=== PATIENT | female | born 1940 | race Caucasian/White ===

== ENCOUNTER 2017-07-25 09:34 | Outpatient (RCR) | payer OTHER, SELFPAY ==
--- NOTE | 2017-07-25 09:57 | RAD_ITS ---
STUDY: X-RAY - RIGHT KNEE REASON FOR EXAM: Female, 77 years old. Right knee pain. TECHNIQUE: 4 view(s) of the knee. COMPARISON: None. FINDINGS: Normal visualized distal femur. Normal visualized proximal tibia and fibula. Normal proximal tibiofibular articulation. There is mild degenerative arthrosis of the medial femorotibial compartment. There is mild degenerative arthrosis of the lateral femorotibial compartment. Normal patellofemoral articulation. Chondrocalcinosis of the medial and lateral menisci. The soft tissue structures are unremarkable. RAD/Knee 4 or More Views IMPRESSION: Degenerative arthrosis. Chondrocalcinosis. Electronically Signed: Elmer Sexton MD at 13:40 EST Tel [phone], Service support ,
[2017-07-25 10:01] LABS: Prothrombin Time Fingerstick 27.2 SEC (11.9-14.4)
== END 2017-07-25 10:00 | disposition home or self-care (01) ==
LOC: MTLAB 09:34
PROVIDERS: Family Provider Internal Medicine; PCP Internal Medicine; Visit Provider Internal Medicine Cardiovascular Disease
DX: I48.0 Paroxysmal atrial fibrillation (principal); M25.561 Pain in right knee
CPT/HCPCS: 36415; 36416; 73564; 85610

== ENCOUNTER 2017-09-30 13:44 | Outpatient (RCR) | payer OTHER, SELFPAY ==
[2017-09-16 12:16] LABS: Prothrombin Time Fingerstick 37.3 SEC (11.9-14.4)
[2017-09-30 14:49] LABS: International Normalized Ratio 2.2; Prothrombin Time (Protime)PT. 24.8 SECONDS (11.7-14.9)
== END 2017-09-30 14:00 | disposition home or self-care (01) ==
LOC: MTLAB 13:44
PROVIDERS: Family Provider Internal Medicine; PCP Internal Medicine; Visit Provider Internal Medicine Cardiovascular Disease
DX: I48.0 Paroxysmal atrial fibrillation (principal)
CPT/HCPCS: 36415; 36416; 85610

== ENCOUNTER → 2017-10-05 11:42 | Outpatient (CLI) | payer OTHER, SELFPAY | PROVIDERS: Family Provider Internal Medicine; PCP Internal Medicine; Visit Provider Internal Medicine | DX: Z12.31 Encounter for screening mammogram for malignant neoplasm of breast (principal) ==

== ENCOUNTER → 2017-10-05 11:55 | Outpatient (CLI) | payer OTHER, SELFPAY ==
--- NOTE | 2017-10-05 11:59 | BI_ITS ---
MAMMOGRAPHY - BILATERAL SCREENING REASON FOR EXAM: Female, 77 years old. Routine annual screening examination. PERTINENT HISTORY: Non-contributory. TECHNIQUE: Digital bilateral breast jerome (3D mammographic acquisition) in the CC and MLO projections. 2-D mediolateral oblique (MLO) and craniocaudad (CC) views of both breasts were obtained. CAD: Full Field Digital Mammography with Computer Added Detection was performed. COMPARISON: Comparison is made with prior study dated September 29, 2016 and September 29, 2015. FINDINGS: Breast Composition: The breasts are heterogeneously dense, which may obscure small masses. There are no dominant masses or suspicious calcifications. Stable bilateral secretory calcifications. Stable bilateral benign-appearing axillary lymph nodes. No other significant abnormalities are identified. There has been no significant change since the prior study. BI/SCREENING MAMM (CAD), BILAT IMPRESSION: Stable bilateral screening mammogram. Yearly follow-up mammogram recommended. (A) ASSESSMENT CATEGORY: BIRADS Category 2: Benign. A letter regarding these results will be sent to the patient by the facility within 30 days. Approximately 10% of breast cancers are not detected by mammography. A normal mammogram should not delay biopsy of a clinically suspicious abnormality. [id number] Electronically Signed: Elmer Sexton MD at 13:49 EDT Tel [phone], Service support ,
== END ==
PROVIDERS: Family Provider Internal Medicine; PCP Internal Medicine; Visit Provider Internal Medicine
DX: Z12.31 Encounter for screening mammogram for malignant neoplasm of breast (principal)
CPT/HCPCS: 77063; 77067

== ENCOUNTER 2017-11-02 11:06 | Outpatient (RCR) | payer OTHER, SELFPAY ==
[2017-11-02 11:25] LABS: Prothrombin Time Fingerstick 32.8 SEC (11.9-14.4)
== END 2017-11-02 12:00 | disposition home or self-care (01) ==
LOC: MTLAB 11:06
PROVIDERS: Family Provider Internal Medicine; PCP Internal Medicine; Visit Provider Internal Medicine Cardiovascular Disease
DX: I48.0 Paroxysmal atrial fibrillation (principal)
CPT/HCPCS: 36416; 85610

== ENCOUNTER 2018-01-16 11:40 | Outpatient (RCR) | payer OTHER, SELFPAY ==
[2018-01-16 11:51] LABS: Prothrombin Time Fingerstick 29.1 SEC (11.9-14.4)
== END 2018-01-16 13:00 ==
LOC: MTLAB 11:40
PROVIDERS: Family Provider Internal Medicine; PCP Internal Medicine; Visit Provider Internal Medicine Cardiovascular Disease
DX: I48.0 Paroxysmal atrial fibrillation (principal); Z79.01 Long term (current) use of anticoagulants
CPT/HCPCS: 36416; 85610

== ENCOUNTER → 2018-02-06 09:52 | Outpatient (CLI) | payer OTHER, SELFPAY ==
--- NOTE | 2018-02-06 09:55 | CDU_ITS ---
Reason For Study: Carotid Stenosis Rt. Velocities/BP Lt. Velocities/BP Prox CCA 82/18 cm/sec. Prox CCA 79/15 cm/sec. Mid CCA 66/11 cm/sec. Mid CCA 72/13 cm/sec. Dist CCA 67/15 cm/sec. Dist CCA 57/14 cm/sec. Prox ICA 66/17 cm/sec. Prox ICA 67/21 cm/sec. Mid ICA 80/20 cm/sec. Mid ICA 160/39 cm/sec. Dist ICA 121/32 cm/sec. Dist ICA 129/29 cm/sec. Rt. ICA/CCA = 1.83. Lt. ICA/CCA = 2.22. Prox ECA 70/8 cm/sec. Prox ECA 63/8 cm/sec. Rt. Vert. 66/10 cm/sec. Lt. Vert. 75/15 cm/sec. Right Extracranial There is intimal thickening but no significant atherosclerotic plaque noted in the right common carotid artery. There is heterogeneous, irregular atherosclerotic plaque noted in the right internal carotid artery. There is heterogeneous, irregular atherosclerotic plaque noted in the right external carotid artery. Antegrade flow is noted in the right vertebral artery. Left Extracranial There is intimal thickening but no significant atherosclerotic plaque noted in the left common carotid artery. There is intimal thickening but no significant atherosclerotic plaque noted in the left internal carotid artery. The left internal carotid artery is very tortuous. The tortuous nature of the left internal carotid artery may result in flow velocities overestimating the degree of stenosis. There is no significant atherosclerotic plaque noted in the left external carotid artery. Antegrade flow is noted in the left vertebral artery. Procedure Carotid Duplex [id number]. Exam performed in department. Interpretation Summary Mild (<50%) stenosis right extracranial internal carotid. Moderate (50-69%) stenosis left extracranial internal carotid. Flow within the vertebral arteries is antegrade bilaterally. Ordering Physician: Fast, Hailey Referring Physician: Hailey Baires Performed By: Alyssa Rodrigues, BEVERLY, RVT
== END ==
PROVIDERS: Family Provider Internal Medicine; PCP Internal Medicine; Visit Provider Internal Medicine
DX: I65.23 Occlusion and stenosis of bilateral carotid arteries (principal)
CPT/HCPCS: 93880

== ENCOUNTER 2018-02-10 12:48 | Outpatient (RCR) | payer OTHER, SELFPAY ==
[2018-02-10 13:11] LABS: Prothrombin Time Fingerstick 31.1 SEC (11.9-14.4)
== END 2018-02-10 14:00 | disposition home or self-care (01) ==
LOC: MTLAB 12:48
PROVIDERS: Family Provider Internal Medicine; PCP Internal Medicine; Visit Provider Internal Medicine Cardiovascular Disease
DX: I48.0 Paroxysmal atrial fibrillation (principal); Z79.01 Long term (current) use of anticoagulants
CPT/HCPCS: 36416; 85610

== ENCOUNTER → 2018-04-11 10:40 | Outpatient (CLI) | payer OTHER, SELFPAY ==
--- NOTE | 2018-04-11 10:41 | ECHOD_ITS ---
Reason For Study: MURMUR Procedure This was a 2D Doppler, Color Flow transthoracic echocardiogram. Exam performed in department. Left Ventricle Normal LV size. Left ventricular systolic function is normal. The estimated ejection fraction is 60 %. Transmitral and pulmonary venous doppler flow suggestive of impaired relaxation of left ventricle. Transmitral diastolic flow velocities suggest mild (stage 1) diastolic dysfunction (reversed pattern). No regional wall motion abnormalities noted. Right Ventricle Normal RV size. Normal systolic function. Atria Normal left atrium. Normal right atrium. Mitral Valve Normal mitral valve. Mild (1+) eccentric mitral valve insufficiency. Tricuspid Valve Normal tricuspid valve. Mild tricuspid valve insufficiency. Aortic Valve Trisinus/trileaflet aortic valve. Mild focal aortic valve calcification. Pulmonic Valve Normal pulmonic valve. Great Vessels Normal aortic root. The pulmonary artery is normal size. Normal inferior vena cava. Pericardium/Pleural No pericardial effusion. MMode/2D Measurements & Calculations LVIDd: 5.1 cm IVSd: 0.88 cm Ao root diam: 3.1 cm LVIDs: 3.4 cm LVPWd: 0.89 cm LA dimension: 3.9 cm RVDd: 3.5 cm FS: 33.2 % LAV(MOD-bp): 65.0 ml EDV(MOD-sp4): 98.5 ml EDV(MOD-sp2): 97.2 ml LAV(MOD-bp) Indexed: 36.6 ml/m2 ESV(MOD-sp4): 34.6 ml EF(MOD-sp2): 65.3 % LAV(MOD-sp2): 61.8 ml EF(MOD-sp4): 64.8 % LAV(MOD-sp4): 64.1 ml SV(MOD-sp4): 63.8 ml SV(MOD-sp2): 63.4 ml LA A4 area: 22.4 cm2 RA A4 area: 14.7 cm2 Time Measurements MV dec time: 0.21 sec Doppler Measurements & Calculations MV E max ethan: 95.4 cm/sec Lat Peak E' Ethan: 6.3 cm/sec Med Peak E' Ethan: 5.5 cm/sec MV A max ethan: 108.4 cm/sec E/E' lat: 15.2 E/E' med: 17.4 MV E/A: 0.88 Ao V2 max: 207.1 cm/sec LV V1 max: 81.4 cm/sec TR max ethan: 202.0 cm/sec Ao max P.2 mmHg LV V1 max P.7 mmHg TR max P.4 mmHg Ao V2 mean: 154.5 cm/sec LV V1 mean P.6 mmHg Ao mean P.4 mmHg LV V1 mean: 60.2 cm/sec Ao V2 VTI: 55.9 cm LV V1 VTI: 22.2 cm Interpretation Summary Normal LV size. Left ventricular systolic function is normal. The estimated ejection fraction is 60 %. Transmitral and pulmonary venous doppler flow suggestive of impaired relaxation of left ventricle Transmitral diastolic flow velocities suggest mild (stage 1) diastolic dysfunction (reversed pattern). Ordering Physician: Cyril Robles Referring Physician: ETTA LOPEZ Performed By: Jessica Nicholas, BEVERLY, RVT
== END ==
PROVIDERS: Family Provider Internal Medicine; PCP Internal Medicine; Referring Provider Internal Medicine Cardiovascular Disease; Visit Provider Internal Medicine Cardiovascular Disease
DX: R01.1 Cardiac murmur, unspecified (principal)
CPT/HCPCS: 93306

== ENCOUNTER 2018-04-12 10:41 | Outpatient (RCR) | payer OTHER, SELFPAY ==
[2018-04-12 14:14] LABS: Hemoglobin 12.3 g/dl (12.0-15.0); Mean Corp Hgb Conc 32.4 g/gl (32-36); Mean Corpuscular Hgb 30.6 pg (27.0-32.0); Mean Corpuscular Volume 94.5 fL (81-99); Mean Platelet Vol. 10.1 fl (6.2-12.0); Platelet Count 251 K/mm3 (150-450); RBC Distribution Width CV 14.1 % (11.6-14.6); RBC Distribution Width SD 48.4 fl (35.1-43.9); Red Blood Count 4.02 M/mm3 (4.2-5.4); Scan Indicated on CBC? Y/N NO; White Blood Count 8.7 K/mm3 (4.4-11.0)
[2018-04-12 14:18] LABS: Prothrombin Time (Protime)PT. 13.3 SECONDS (11.7-14.9)
[2018-04-12 14:21] LABS: Anion Gap 8 (5-15); BUN 17 mg/dL (7-18); BUN/Creat Ratio 22.9 RATIO (10-20); Chloride 106 mmol/L (98-107); Creatinine, Serum 0.74 mg/dL (0.55-1.02); EST Glomerular Filtration Rate 80 mL/min (>60); Est Glom Filt Rate - Afr Amer 97 mL/min (>60); Glucose 125 mg/dL (74-106); Potassium 4.1 mmol/L (3.5-5.1); Sodium Level 143 mmol/L (136-145)
== END 2018-04-12 12:00 | disposition home or self-care (01) ==
LOC: MTLAB 10:41
PROVIDERS: Family Provider Internal Medicine; PCP Internal Medicine; Referring Provider Internal Medicine Cardiovascular Disease; Visit Provider Internal Medicine Cardiovascular Disease
DX: Z01.818 Encounter for other preprocedural examination (principal); I48.0 Paroxysmal atrial fibrillation; Z79.01 Long term (current) use of anticoagulants
CPT/HCPCS: 36415; 80048; 85027; 85610

== ENCOUNTER 2018-05-15 10:56 | Outpatient (RCR) | payer OTHER, SELFPAY ==
[2018-05-15 11:11] LABS: Prothrombin Time Fingerstick 38.3 SEC (11.9-14.4)
== END 2018-05-15 11:00 | disposition home or self-care (01) ==
LOC: MTLAB 10:56
PROVIDERS: Family Provider Internal Medicine; PCP Internal Medicine; Referring Provider Internal Medicine Cardiovascular Disease; Visit Provider Internal Medicine Cardiovascular Disease
DX: Z01.818 Encounter for other preprocedural examination (principal); I48.0 Paroxysmal atrial fibrillation; Z79.01 Long term (current) use of anticoagulants
CPT/HCPCS: 36416; 85610

== ENCOUNTER 2018-06-14 11:43 | Outpatient (RCR) | payer OTHER, SELFPAY ==
[2018-03-28 14:59] VITALS: BMI 37.5
[2018-06-14 12:05] LABS: Prothrombin Time Fingerstick 21.7 SEC (11.9-14.4)
--- OUTSIDE RECORDS SUMMARY | 2018-07-31 15:15 | XMS RPT_ITS ---
:1940 Author Organization [place] Support Name Relationship Address Phone [employer] Unknown [address] + [place] [address] CURTIS SCOTT [address] + [place] [address] PRITT, ESTHELA NaturalDaughter [address] + [place] [address] [employer] Unknown [address] + [place] [address] SONIACURTIS [address] + [place] [address] PRITT, ESTHELA NaturalDaughter [address] + [place] [address] [employer] Unknown [address] + [place] [address] SON[address]UR[address]IS [address] + [place] [address] PRITT, ESTHELA NaturalDaughter [address] + [place] [address] [employer] Unknown [address] + [place] [address] SON[address]UR[address]IS [address] + [place] [address] PRITT, ESTHELA NaturalDaughter [address] + [place] [address] [employer] Unknown [address] + [place] [address] SON[address]URTIS [address] + [place] [address] PRITT, ESTHELA NaturalDaughter [address] + [place] [address] [employer] Unknown [address] + [place] [address] CURTIS SCOTT [address] + [place] [address] PRITT, ESTHELA NaturalDaughter [address] + [place] [address] [employer] Unknown [address] + [place] [address] CURTIS SCOTT [address] + [place] [address] PRITT, ESTHELA NaturalDaughter [address] + [place] [address] [employer] Unknown [address] + [place] [address] CURTIS SCOTT [address] + [place] [address] PRITT, ESTHELA NaturalDaughter [address] + [place] [address] [employer] Unknown [address] + [place] [address] CURTIS SCOTT [address] + [place] [address] PRITT, ESTHELA NaturalDaughter [address] + [place] [address] [employer] Unknown [address] + [place] [address] CURTIS SCOTT [address] + [place] [address] PRITT, ESTHELA NaturalDaughter [address] + [place] [address] [employer] Unknown [address] + [place] [address] CURTIS SCOTT [address] + [place] [address] PRITT, ESTHELA NaturalDaughter [address] + [place] [address] [employer] Unknown [address] + [place] [address] CURTIS SCOTT [address] + [place] [address] PRITT, ESTHELA NaturalDaughter [address] + [place] [address] [employer] Unknown [address] + [place] [address] CURTIS SCOTT [address] + [place] [address] PRITT, ESTHELA NaturalDaughter [address] + [place] [address] [employer] Unknown [address] + [place] [address] CURTIS SCOTT [address] + [place] [address] PRITT, ESTHELA NaturalDaughter [address] + [place] [address] [employer] Unknown [address] + [place] [address] CURTIS SCOTT [address] + [place] [address] PRITT, ESTHELA NaturalDaughter [address] + [place] [address] [employer] Unknown [address] + [place] [address] CURTIS SCOTT [address] + [place] [address] PRITT, ESTHELA NaturalDaughter [address] + [place] [address] [employer] Unknown [address] + [place] [address] CURTIS SCOTT [address] + [place] [address] PRITT, ESTHELA NaturalDaughter [address] + [place] [address] Care Team Providers Name Role Phone Fast DO, Hailey A Attending Unavailable Fast DO, Hailey A Referring Unavailable Fast DO, Hailey A Consulting Unavailable Margaret, Rockwood Attending Unavailable Margaret, Rockwood Referring Unavailable Fast, Hailey Primary Care Unavailable Dewey Ponce Consulting Unavailable Margaret, Attending Unavailable Margaret, [place] Referring Unavailable Fast, Hailey Primary Care Unavailable Roof, Bismark Beverly Attending Unavailable Fast, Hailey Referring Unavailable Fast, Hailey Primary Care Unavailable Margaret, Attending Unavailable Fast, Hailey Referring Unavailable Fast, Hailey Attending Unavailable Fast, Hailey Primary Care Unavailable Margaret, Attending Unavailable Margaret, Referring Unavailable Fast, Hailey Primary Care Unavailable Fast, Hailey Attending Unavailable Fast, Hailey Primary Care Unavailable Margaret, [place] Attending Unavailable Margaret, [place] Referring Unavailable Fast, Hailey Primary Care Unavailable Fast, Hailey Attending Unavailable Fast, Hailey Referring Unavailable Fast, Hailey Primary Care Unavailable Margaret, Attending Unavailable Margaret, [place] Referring Unavailable Fast, Hailey Primary Care Unavailable Fast, Hailey Primary Care Unavailable Margaret, [place] Attending Unavailable Margaret, [place] Referring Unavailable Margaret, [place] Attending Unavailable Margaret, Referring Unavailable Fast, Hailey Primary Care Unavailable Dewey Ponce Consulting Unavailable Margaret, [place] Attending Unavailable Margaret, [place] Referring Unavailable Fast, Hailey Primary Care Unavailable Dewey Ponce Attending Unavailable Fast, Hailey Primary Care Unavailable Margaret, Attending Unavailable Margaret, Referring Unavailable Fast, Hailey Primary Care Unavailable Margaret, [place] Consulting Unavailable Margaret, Attending Unavailable Margaret, Referring Unavailable Fast, Hailey Primary Care Unavailable Dewey Ponce Consulting Unavailable Margaret, Attending Unavailable Margaret, [place]wood Referring Unavailable Fast, Hailey Primary Care Unavailable Dewey Ponce Consulting Unavailable Purpose Purpose PROBLEMS PROBLEMS DATE TYPE CONDITION / CODE ATTENDING STATUS SOURCE 07/03/2018 Unknown I48.0 - Paroxysmal Margaret, Rockwood Active [facility] atrial fibrillation Community / I48.0(ICD-10) Hospital Repository 06/06/2018 Unknown Z01.818 - Encounter Margaret, Active [facility] for other Community preprocedural Hospital examination / Repository Z01.818(ICD-10) 04/11/2018 Unknown R01.1 - Cardiac Margaret, Active [facility] murmur, unspecified Community / R01.1(ICD-10) Hospital Repository 03/28/2018 Unknown I10 - Essential Margaret, Rockwood Active [facility] (primary) Community hypertension / Hospital I10(ICD-10) Repository 03/28/2018 Unknown E78.5 - Margaret, Active [facility] Hyperlipidemia, Community unspecified / Hospital E78.5(ICD-10) Repository 02/06/2018 Unknown 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, Hailey Active [place] and stenosis of Community bilateral carotid Hospital arteries / Repository I65.23(ICD-10) 10/05/2017 Unknown Z12.31 - Encounter Fast, Hailey Active [facility] for screening [facility] mammogram for Hospital malignant neoplasm Repository of breast / Z12.31(ICD-10) PROCEDURES PROCEDURES No Procedure Records FoundVITAL SIGNS VITAL SIGNS No Vital Signs Records FoundRESULTS RESULTS PROTIME W/INR Collected: 06/14/2018 Status: F Source: [place] 12:01 PM [facility] REPOSITORY TYPE CODE TESTS RESULT OUT OF REFERENCE UNITS RANGE LAB L9200.1001 11.9-14.4 SEC High PROTIME ISTAT 21.7 Result Comment: Reference Range 11.9 - 14.4 LAB L9200.2000 Normal INR ISTAT 1.90 Result Comment: Critical Value > 3.5 Performed By: #### L9200.0000 #### [facility] Laboratory Point of Care [address] [place] [address] PROTIME W/INR Collected: 05/15/2018 Status: F Source: [place] 11:03 AM [facility] REPOSITORY TYPE CODE TESTS RESULT OUT OF REFERENCE UNITS RANGE LAB L9200.1001 11.9-14.4 SEC High PROTIME ISTAT 38.3 Result Comment: Reference Range 11.9 - 14.4 LAB L9200.2000 Normal INR ISTAT 3.40 Result Comment: Critical Value > 3.5 Performed By: #### L9200.0000 #### [facility] Point of Care [address] [place] [address] CBC-COMPLETE BLOOD CNT Collected: 04/12/2018 Status: F Source: [place] NO DIFF 12:55 PM [facility] REPOSITORY Order Comment: DR IYER ORDERED PT DEWEY PONCE ORDERED CBC/BMP TYPE CODE TESTS RESULT OUT OF RANGE REFERENCE UNITS LAB L100.1000 4.4-11.0 K/mm3 Normal WBC 8.7 LAB L100.1200 4.2-5.4 M/mm3 Low RBC 4.02 LAB L100.1300 12.0-15.0 g/dl Normal HGB 12.3 LAB L100.1400 37-47 % Normal HCT 38.0 LAB L100.1500 81-99 fL Normal MCV 94.5 LAB L100.1600 27.0-32.0 pg Normal MCH 30.6 LAB L100.1700 32-36 g/gl Normal MCHC 32.4 LAB L100.1810 11.6-14.6 % Normal RDW CV 14.1 LAB L100.1820 35.1-43.9 fl High RDW SD 48.4 LAB L100.1900 150-450 K/mm3 Normal PLT 251 LAB L100.2000 6.2-12.0 fl Normal MPV 10.1 Performed By: #### L100.0500 #### [facility] [address] [place], [place], [address] PROTHROMBIN TIME W/INR Collected: 04/12/2018 Status: F Source: [place] 12:55 PM [facility] REPOSITORY Order Comment: DR IYER ORDERED PT DEWEY PONCE ORDERED CBC/BMP TYPE CODE TESTS RESULT OUT OF RANGE REFERENCE UNITS LAB L300.4150 11.7-14.9 SECONDS Normal PROTIME 13.3 LAB L300.4200 Normal INR 1.0 Performed By: #### L300.3900 #### [facility] [address] [place], [place], [address] BASIC METABOLIC Collected: 04/12/2018 Status: F Source: [place] PROFILE (BMP) 12:55 PM [facility] REPOSITORY Order Comment: DR IYER ORDERED PT DEWEY PONCE ORDERED CBC/BMP TYPE CODE TESTS RESULT OUT OF RANGE REFERENCE UNITS LAB L501.0100 74-106 mg/dL High GLU 125 Result Comment: Fasting Glucose result from 100 to 125 mg/dL suggests IMPAIRED HOMEOSTASIS per A.D.A. criteria. Please note revised GLUCOSE reference range effective 2017. LAB L501.1000 7-18 mg/dL Normal BUN 17 LAB L501.1100 0.55-1.02 mg/dL Normal CREAT,SERUM 0.74 Result Comment: The validity of the calculated GFR AND GFRAA in patients over 70 years has not been determined. Clinical correlation is essential. LAB L501.1110 >60 mL/min Normal EST GFR 80 Result Comment: Non- GFR Calc LAB L501.1115 >60 mL/min Normal EST GFR - AA 97 Result Comment: GFR Calc LAB L501.1300 10-20 RATIO High BUN/CRE 22.9 LAB L501.2200 8.5-10.1 mg/dL CA Normal 9.0 LAB L501.5300 136-145 mmol/L NA Normal 143 LAB L501.5600 3.5-5.1 mmol/L K Normal 4.1 LAB L501.5900 98-107 mmol/L CL Normal 106 LAB L501.6100 21.0-32.0 mmol/L Normal CO2 29.0 LAB L501.6200 5-15 Normal GAP 8 Performed By: #### L500.2500 #### [facility] [address] [place], [address] ECHOCARDIOGRAM COMPLETE Observed: 04/11/2018 Status: F Source: [place] 5:13 PM [facility] REPOSITORY [facility] Cardiovascular Services [address] [place] [address] Echo Complete 04/11/18 1052 MR#: [id number] Acct: [id number] Name: YOEL SCOTT Rep #: [id number] : 1940 77 From: Cyril Iyer MD Attending Dr: Cyril Iyer MD Status: REG CLI Ordering Dr: Cyril Iyer MD Date: 04/11/18 Location: [facility] Sex: F C Admitted: Reason For Study: MURMUR Procedure This was a 2D Doppler, Color Flow transthoracic echocardiogram. Exam performed in department. Left Ventricle Normal LV size. Left ventricular systolic function is normal. The estimated ejection fraction is 60 %. Transmitral and pulmonary venous doppler flow suggestive of impaired relaxation of left ventricle. Transmitral diastolic flow velocities suggest mild (stage 1) diastolic dysfunction (reversed pattern). No regional wall motion abnormalities noted. Right Ventricle Normal RV size. Normal systolic function. Atria Normal left atrium. Normal right atrium. Mitral Valve Normal mitral valve. Mild (1+) eccentric mitral valve insufficiency. Tricuspid Valve Normal tricuspid valve. Mild tricuspid valve insufficiency. Aortic Valve Trisinus/trileaflet aortic valve. Mild focal aortic valve calcification. Pulmonic Valve Normal pulmonic valve. Great Vessels Normal aortic root. The pulmonary artery is normal size. Normal inferior vena cava. Pericardium/Pleural No pericardial effusion. MMode/2D Measurements AND Calculations LVIDd: 5.1 cm IVSd: 0.88 cm Ao root diam: 3.1 cm LVIDs: 3.4 cm LVPWd: 0.89 cm LA dimension: 3.9 cm RVDd: 3.5 cm FS: 33.2 % LAV(MOD-bp): 65.0 ml EDV(MOD-sp4): 98.5 ml EDV(MOD-sp2): 97.2 ml LAV(MOD-bp) Indexed: 36.6 ml/m2 ESV(MOD-sp4): 34.6 ml EF(MOD-sp2): 65.3 % LAV(MOD-sp2): 61.8 ml EF(MOD-sp4): 64.8 % LAV(MOD-sp4): 64.1 ml SV(MOD-sp4): 63.8 ml SV(MOD-sp2): 63.4 ml LA A4 area: 22.4 cm2 RA A4 area: 14.7 cm2 Time Measurements MV dec time: 0.21 sec Doppler Measurements AND Calculations MV E max ethan: 95.4 cm/sec Lat Peak E' Ethan: 6.3 cm/sec Med Peak E' Ethan: 5.5 cm/sec MV A max ethan: 108.4 cm/sec E/E' lat: 15.2 E/E' med: 17.4 MV E/A: 0.88 Ao V2 max: 207.1 cm/sec LV V1 max: 81.4 cm/sec TR max ethan: 202.0 cm/sec Ao max P.2 mmHg LV V1 max P.7 mmHg TR max P.4 mmHg Ao V2 mean: 154.5 cm/sec LV V1 mean P.6 mmHg Ao mean P.4 mmHg LV V1 mean: 60.2 cm/sec Ao V2 VTI: 55.9 cm LV V1 VTI: 22.2 cm Interpretation Summary Normal LV size. Left ventricular systolic function is normal. The estimated ejection fraction is 60 %. Transmitral and pulmonary venous doppler flow suggestive of impaired relaxation of left ventricle Transmitral diastolic flow velocities suggest mild (stage 1) diastolic dysfunction (reversed pattern). Ordering Physician: Cyril Iyer Referring Physician: HAILEY LOPEZ Performed By: Jessica Nicholas, RDCS, RVT 04/11/18 1712 Date Cyril Iyer MD CC: Cyril Iyer MD; Hailey Lopez DO Date Dictated: 04/11/18 1052 Date Transcribed: 04/11/181711 Principal Associate: Signed CARDIOLOGY VISIT Observed: 03/28/2018 Status: F Source: [place] REPORT 3:37 PM [facility] REPOSITORY [facility] [address] [place] [address] OFFICE VISIT Date of Service: 03/28/18 MR#: [id number] Acct: [id number] Name: YOEL SCOTT Rep #: [id number] : 1940 Provider: Cyril Iyer MD Age/Sex: 77/F Location: [facility] Status: Signed HPI HPI Chief Complaint: Follow-up visit. Details: YOEL SCOTT, is a 77 F who presents to the office today for a follow-up visit. She is a lady with a history of hypertension hyperlipidemia paroxysmal atrial fibrillation who returns for routine follow-up visit. She denies any chest pain or shortness breath or paroxysmal nocturnal dyspnea or pedal edema she has had no neck arm or jaw discomfort suggest angina and no recent palpitations. Her physical exam today demonstrates clear lung duenas regular rate and rhythm is soft 2/6 systolic murmur noted left sternal border and no pedal edema. You do remember that her last echocardiogram demonstrated an ejection fraction of 60%. 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 Accompanied by: none Is patient in pain?: No Allergies Penicillins Allergy (Verified 03/28/18 15:00) Other tetanus toxoid, adsorbed Allergy (Verified 03/28/18 15:00) Swelling Medications Aspirin [Aspirin, Baby] 81 mg PO DAILY@0800 08/28/16 [History Confirmed 03/28/18] Calcium Carbonate [Calcium] 600 mg PO BID 08/28/16 [History Confirmed 03/28/18] Cetirizine HCl [Zyrtec] 10 mg PO DAILY 08/28/16 [History Confirmed 03/28/18] Co Q10 200 [Co Q-10] 200 mg PO DAILY 08/28/16 [History Confirmed 03/28/18] Fish Oil/Dha/Epa [Fish Oil 1,200 mg Fish Oil] 1 ea PO DAILY 08/28/16 [History Confirmed 03/28/18] Gluc Abad/Chondro Abad A/Vit C/Mn [Glucosamine 1,500 Complex Cp] 1 ea PO BID 08/28/16 [History Confirmed 03/28/18] Levothyroxine [Synthroid] 75 mcg PO MOTUWETHFR 08/28/16 [History Confirmed 03/28/18] Levothyroxine [Synthroid] 150 mcg PO SUSA 08/28/16 [History Confirmed 03/28/18] Metformin HCl [Glucophage] 2,000 mg PO DINNER 08/28/16 [History Confirmed 03/28/18] Metoprolol Succinate [Toprol Xl] 25 mg PO DAILY 08/28/16 [History Confirmed 03/28/18] Multivitamin [Multiple Vitamins] 1 ea PO DAILY 08/28/16 [History Confirmed 03/28/18] Rosuvastatin Calcium [Crestor] 10 mg PO QHS 08/28/16 [History Confirmed 03/28/18] Valsartan/Hydrochlorothiazide [Diovan Hct 160-25 mg Tablet] 1 ea PO DAILY 08/28/16 [History Confirmed 03/28/18] warfarin 1 mg tablet 1 mg PO .COMPLEX 09/16/17 [History Confirmed 03/28/18] warfarin 4 mg tablet 4 mg PO .COMPLEX 09/16/17 [History Confirmed 03/28/18] flecainide 100 mg tablet 100 mg PO BID #180 tab 11/02/17 [Rx Confirmed 03/28/18] [facility] Medical History [facility] current use of anticoagulant (Chronic) Atrial fibrillation (Chronic) Surgical History History of appendectomy (Chronic) H/O tubal ligation (Resolved) History of cholecystectomy (Resolved) History of hysterectomy (Resolved) History of tonsillectomy (Resolved) Family History Father Hypertension Myocardial infarction CAD (coronary artery disease) Mother FH: rheumatic fever FH: CHF (congestive heart failure) Brother FH: atrial fibrillation Sister Breast cancer Social History Smoking Status: Never smoker alcohol intake: current alcohol intake frequency: a few times a month Alcohol type: wine, hard liquor substance use type: does not use caffeine: Yes Type: coffee, carbonated beverages what type of physical activity do you participate in: walking, other details: tredmill frequency: 5-6 times per week duration: 15-30 minutes/day seatbelt use: always do you feel safe at home: Yes ROS Const Const: Negative for fatigue, weakness, night sweats, excessive sweating, frequent falls, headache(s) or daytime sleepiness Eyes Eyes: Negative for loss of peripheral vision, transient loss of vision, blind spots, double vision or blurry vision ENT ENT: Negative for headache(s), dizziness, balance problems, Nosebleed/epistaxis, tongue swelling or lip swelling Cardio Chest Pain: No Palpitations: No Edema: None Muscle aches with walking: None Resp Respiratory: Negative for SOB at rest, SOB orthopnea\SOB lying down, Cough, paroxysmal nocturnal dyspnea or SOB with activity GI GI: Negative nausea, vomiting, heartburn, black,tarry stools or bright, red blood in stools : Negative for hematuria Musc Musc: Negative for balance problems, muscle aches/ myalgia, muscle weakness or joint pain Skin Skin: Negative non-healing lesions, unusual bruising or rash Neuro Neuro: Negative for weakness, frequent falls, headache(s), double vision, dizziness, lightheadedness, orthostatic symptoms, blurry vision or lack of coordination Skyler Hematologic/Lymphatic: Negative for easy bruising or easy bleeding Endo Endo: Negative for fatigue, excessive sweating, cold intolerance, heat intolerance, increased thirst/drinking or hair loss Psych Psych: Negative for anxiety or depression Allergy Allergy/Immunology: Negative for throat swelling, Negative for tongue swelling, Negative for hives, Negative for rash, Negative for lip swelling Cardiology Exam Const Appearance: cooperative, healthy appearing, well developed, well groomed and no acute distress Nutritional Appearance: well nourished and average body habitus Orientation: alert, awake and oriented x3 Head Head: normal to inspection, normocephalic and atraumatic Ears: hearing grossly normal bilaterally and external ears normal Nose: external nose normal, nasal mucous membranes and turbinates normal, nares normal, septum normal, no nasal discharge Face and Sinus: face symmetric Mouth: oral mucosae normal, tongue normal, oropharynx normal and moist mucous membranes Teeth and gingiva: dentition normal Throat: posterior oropharynx normal, tonsils normal and uvula midline Eyes General: appearance normal, both eyes and all related structures Eyelids: eyelids normal Conjunctivae: conjunctivae normal Pupils: PERRL, normal by confrontation and accommodation normal EOM: EOM intact bilaterally Neck Neck: normal visual inspection, trachea midline and no JVD JVD: +5 Carotids: normal carotid upstroke and bounding pulses Chest Chest inspection: normal inspection of the chest, symmetric chest movement and normal respiratory effort Auscultation: Bilateral: Clear to Auscultation Cardio Palpation: normal PMI Rate: regular rate Rhythm: regular rhythm Heart sounds: S1 normal and S2 normal Murmur: Grade 2/6, soft and early systolic GI GI: normal to inspection, soft, no hepatosplenomegaly and bowel sounds present Neuro General: alert, awake, oriented x3, no focal sensory deficit, gait normal and moves all extremities Skin Skin: no rashes or lesions noted Extremities Pulses: Normal: Right Femoral Pulse, Left Femoral Pulse, Right Dorsalis Pedis Pulse, Left Dorsalis Pedis Pulse, Right Posterior Tibial Pulse, Left Posterior Tibial Pulse, Right Radial Pulse, Left Radial Pulse Lower Extremity Edema: None: Bilateral Musculoskel Musculoskeletal: No joint tenderness Psych Psychological: normal affect Assessment AND Plan 1. Hypertension I10 Plan Her blood pressure continues to be under excellent control on the current medical therapy I would not recommend that we make any changes at this time on her regimen. 2. Hyperlipidemia E78.5 Plan She does have a history of hyperlipidemia and has been on medium intensity statin. This will be continued routine lipid profiles will also be obtained. 3. Paroxysmal atrial fibrillation I48.0 Plan She has a history of paroxysmal atrial fibrillation. She has been on anticoagulation as well as antiarrhythmic therapy and beta-josy her electric cardiogram today here today demonstrates sinus rhythm with a rate of 58 bpm and normal intervals. No changes will be made she would maintain an INR of 2-3. Orders Orders: 4. Murmur, cardiac R01.1 Plan She does have a cardiac murmur suggestive of aortic sclerosis and mild stenosis. My recommendation will be to obtain a formal echocardiogram to assess the above. She also did have a carotid ultrasound which demonstrated less than 50% stenosis of the extracranial right internal carotid artery and moderate 50-69% percent stenosis of the left internal carotid vessel. Thank you for allowing me to participate in the care of your patient. 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) Coding Level of Care Code Off vis,est,level 3 Diagnoses Hypertension I10 Hyperlipidemia E78.5 Paroxysmal atrial fibrillation I48.0 Murmur, cardiac R01.1 Coding Level of Care Code Off vis,est,level 3 Diagnoses Hypertension I10 Hyperlipidemia E78.5 Paroxysmal atrial fibrillation I48.0 Murmur, cardiac R01.1 03/28/18 1537 <Electronically signed by Cyril Iyer MD> Date Cyril Iyer MD Cosigner Signature: Date (if applicable) CC: Hailey Lopez DO 12 LEAD EKG PERFORMED Observed: 03/28/2018 Status: F Source: [place] BY [facility] 3:10 PM [facility] REPOSITORY [address] [place] [address] 12 Lead EKG performed by [facility] 03/28/18 1506 MR#: [id number] Acct: [id number] Name: YOEL SCOTT Rep #: [id number] : 1940 77 From: Cyril Iyer MD Attending Dr: Cyril Iyer MD Status: DEP AMB Ordering Dr: Cyril Iyer MD Date: 03/28/18 [place] [facility] Sex: F C Admitted: [facility]/12 Lead EKG performed by [facility] ECG Report Interpretation Sinus Bradycardia Low voltage in precordial leads. - Negative precordial T-waves -Probably normal -consider anteroseptal ischemia. ABNORMAL Electronically signed on 06/07/2018 at 11:38 by Cyril Iyer Software Version [id number] 06/07/18 1146 Date Cyril Iyer MD CC: Hailey Lopez DO Date Dictated: 03/28/18 1506 Date Transcribed: 03/28/181505 Principal Associate: CO Signed PROTIME W/INR Collected: 02/10/2018 Status: F Source: [place] 1:04 PM [facility] REPOSITORY TYPE CODE TESTS RESULT OUT OF REFERENCE UNITS RANGE LAB L9200.1001 11.9-14.4 SEC High PROTIME ISTAT 31.1 Result Comment: Reference Range 11.9 - 14.4 LAB L9200.2000 Normal INR ISTAT 2.70 Result Comment: Critical Value > 3.5 Performed By: #### L9200.0000 #### [facility] Laboratory Point of Care [address] [place] [address] CAROTID DUPLEX Observed: 02/08/2018 Status: F Source: [place] ULTRASOUND 7:51 AM [facility] REPOSITORY [facility] Cardiovascular Services [address] [place] [address] Carotid Duplex Ultrasound 02/06/18 0958 MR#: [id number] Acct: [id number] Name: YOEL SCOTT Rep #: [id number] : 1940 77 From: Hermann Gaspar MD Attending Dr: Hailey Lopez DO Status: REG CLI Ordering Dr: Hailey Lopez DO Date: 02/06/18 Location: [facility] Sex: F C Admitted: Reason For Study: Carotid Stenosis Rt. Velocities/BP Lt. Velocities/BP Prox CCA 82/18 cm/sec. Prox CCA 79/15 cm/sec. Mid CCA 66/11 cm/sec. Mid CCA 72/13 cm/sec. Dist CCA 67/15 cm/sec. Dist CCA 57/14 cm/sec. Prox ICA 66/17 cm/sec. Prox ICA 67/21 cm/sec. Mid ICA 80/20 cm/sec. Mid ICA 160/39 cm/sec. Dist ICA 121/32 cm/sec. Dist ICA 129/29 cm/sec. Rt. ICA/CCA = 1.83. Lt. ICA/CCA = 2.22. Prox ECA 70/8 cm/sec. Prox ECA 63/8 cm/sec. Rt. Vert. 66/10 cm/sec. Lt. Vert. 75/15 cm/sec. Right Extracranial There is intimal thickening but no significant atherosclerotic plaque noted in the right common carotid artery. There is heterogeneous, irregular atherosclerotic plaque noted in the right internal carotid artery. There is heterogeneous, irregular atherosclerotic plaque noted in the right external carotid artery. Antegrade flow is noted in the right vertebral artery. Left Extracranial There is intimal thickening but no significant atherosclerotic plaque noted in the left common carotid artery. There is intimal thickening but no significant atherosclerotic plaque noted in the left internal carotid artery. The left internal carotid artery is very tortuous. The tortuous nature of the left internal carotid artery may result in flow velocities overestimating the degree of stenosis. There is no significant atherosclerotic plaque noted in the left external carotid artery. Antegrade flow is noted in the left vertebral artery. Procedure Carotid Duplex 06753. Exam performed in department. Interpretation Summary Mild (<50%) stenosis right extracranial internal carotid. Moderate (50-69%) stenosis left extracranial internal carotid. Flow within the vertebral arteries is antegrade bilaterally. Ordering Physician: Hailey Lopez Referring Physician: Hailey Lopez Performed By: Alyssa Rodrigues, BEVERLY, RVT 02/08/18 0750 Date Hermann Gaspar MD CC: Hailey Lopez DO Date Dictated: 02/06/1858 Date Transcribed: 02/08/18749 Principal Associate: Signed PROTIME W/INR Collected: 01/16/2018 Status: F Source: [facility] FINGERSTICK 11:47 AM [facility] REPOSITORY TYPE CODE TESTS RESULT OUT OF REFERENCE UNITS RANGE LAB L9200.1001 11.9-14.4 SEC High PROTIME ISTAT 29.1 Result Comment: Reference Range 11.9 - 14.4 LAB L9200.2000 Normal INR ISTAT 2.50 Result Comment: Critical Value > 3.5 Performed By: #### L9200.0000 #### [facility] Laboratory Point of Care [address] [place] [address] PROTIME W/INR Collected: 11/02/2017 Status: F Source: [place] FINGERSTICK 11:22 AM [facility] REPOSITORY TYPE CODE TESTS RESULT OUT OF REFERENCE UNITS RANGE LAB L9200.1001 11.9-14.4 SEC High PROTIME ISTAT 32.8 Result Comment: Reference Range 11.9 - 14.4 LAB L9200.2000 Normal INR ISTAT 2.90 Result Comment: Critical Value > 3.5 Performed By: #### L9200.0000 #### [facility] Laboratory Point of Care [address] [place], [place] [address] SCREENING MAMM (CAD), Observed: 10/05/2017 Status: F Source: MONICA BILAT 11:59 AM [facility] REPOSITORY [facility] Imaging Services [address] [place] [address] SCREENING MAMM (CAD), BILAT MR#: [id number] Acct: [id number] Name: YOEL SCOTT Rep #: [id number] : 1940 F 77 From: Elmer Sexton MD PCP: Hailey Lopez DO Status: REG CLI Study: SCREENING MAMM (CAD), BILAT Date of Exam: 10/05/17 Exam# [id number] Ordering Dr: Hailey Lopez DO MAMMOGRAPHY - BILATERAL SCREENING REASON FOR EXAM: Female, 77 years old. Routine annual screening examination. PERTINENT HISTORY: Non-contributory. TECHNIQUE: Digital bilateral breast jerome (3D mammographic acquisition) in the CC and MLO projections. 2-D mediolateral oblique (MLO) and craniocaudad (CC) views of both breasts were obtained. CAD: Full Field Digital Mammography with Computer Added Detection was performed. COMPARISON: Comparison is made with prior study dated September 29, 2016 and September 29, 2015. FINDINGS: Breast Composition: The breasts are heterogeneously dense, which may obscure small masses. There are no dominant masses or suspicious calcifications. Stable bilateral secretory calcifications. Stable bilateral benign-appearing axillary lymph nodes. No other significant abnormalities are identified. There has been no significant change since the prior study. BI/SCREENING MAMM (CAD), BILAT IMPRESSION: Stable bilateral screening mammogram. Yearly follow-up mammogram recommended. (A) ASSESSMENT CATEGORY: BIRADS Category 2: Benign. A letter regarding these results will be sent to the patient by the facility within 30 days. Approximately 10% of breast cancers are not detected by mammography. A normal mammogram should not delay biopsy of a clinically suspicious abnormality. [id number] Electronically Signed: Elmer Sexton MD at 13:49 EDT Tel [phone], Service support , CC: Hailey Lopez DO Principal Associate: Signed PROTHROMBIN TIME W/INR Collected: 09/30/2017 Status: F Source: MONICA 1:47 PM [facility] REPOSITORY TYPE CODE TESTS RESULT OUT OF RANGE REFERENCE UNITS LAB L300.4150 11.7-14.9 SECONDS High PROTIME 24.8 LAB L300.4200 Normal INR 2.2 Performed By: #### L300.3900 #### [facility] [address] [place], [address] PROTIME W/INR Collected: 09/16/2017 Status: F Source: [place] FINGERSTICK 12:10 PM [facility] REPOSITORY TYPE CODE TESTS RESULT OUT OF REFERENCE UNITS RANGE LAB L9200.1001 11.9-14.4 SEC High PROTIME ISTAT 37.3 Result Comment: Reference Range 11.9 - 14.4 LAB L9200.2000 Normal INR ISTAT 3.30 Result Comment: Critical Value > 3.5 Performed By: #### L9200.0000 #### [facility] Point of Care [address] [place] [address] CARDIOLOGY VISIT Observed: 09/02/2017 Status: F Source: MONICA REPORT 4:30 PM [facility] REPOSITORY [facility] [address] [place] [address] OFFICE VISIT Date of Service: 09/02/17 MR#: [id number] Acct: [id number] Name: YOEL SCOTT Rep #: [id number] : 1940 Provider: KIZZY Rodrigues Age/Sex: 77/F Location[place] [facility] [place] Status: Signed HPI HPI Details: YOEL SCOTT, is a 77 F who presents to the office today for cardiovascular outpatient follow-up. Patient has history of paroxysmal atrial fibrillation, hypertension, and hyperlipidemia. Pt. denies chest, arm, jaw, or neck discomfort. Her exercise tolerance is stable via walking on the treadmill. Pt. denies symptoms of CHF, palpitations, lightheadedness, dizziness, near syncope, or syncopal episodes. Pt. denies edema or claudication issues. Pt. denies orthopnea, PND, fever, chills, blood in urine, blood in stool, myalgia, or unexplainable fatigue. Intake Vital Signs09/02/17 Height 4 ft 11 in 09/02/17 Weight: 184 lb 09/02/17 Body Mass Index (BMI) 37.1 09/02/17 Blood Pressure 132/68 09/02/17 Blood Pressure Location Lt brachial Intake Visit Reasons: 6 M FU Allergies Penicillins Allergy (Verified 08/28/16 14:53) Other tetanus toxoid, adsorbed Allergy (Verified 08/28/16 14:53) Swelling Medications Aspirin [Aspirin, Baby] 81 mg PO DAILY@0800 08/28/16 [History Confirmed 07/27/17] Calcium Carbonate [Calcium] 600 mg PO BID 08/28/16 [History Confirmed 07/27/17] Cetirizine HCl [Zyrtec] 10 mg PO DAILY 08/28/16 [History Confirmed 07/27/17] Co Q10 200 [Co Q-10] 200 mg PO DAILY 08/28/16 [History Confirmed 07/27/17] Fish Oil/Dha/Epa [Fish Oil 1,200 mg Fish Oil] 1 ea PO DAILY 08/28/16 [History Confirmed 07/27/17] Flecainide [Tambocor] 100 mg PO BID 08/28/16 [History Confirmed 07/27/17] Gluc Abad/Chondro Abad A/Vit C/Mn [Glucosamine 1,500 Complex Cp] 1 ea PO BID 08/28/16 [History Confirmed 07/27/17] Hydrocodone Bitart/Apap 5-325 [[place] 5/325] 1 tab PO Q6H PRN PRN #20 tab 08/28/16 [Rx] Levothyroxine [Synthroid] 75 mcg PO MOTUWETHFR 08/28/16 [History Confirmed 08/28/16] Levothyroxine [Synthroid] 150 mcg PO SUSA 08/28/16 [History Confirmed 07/27/17] Metformin HCl [Glucophage] 2,000 mg PO DINNER 08/28/16 [History Confirmed 07/27/17] Metoprolol Succinate [Toprol Xl] 25 mg PO DAILY 08/28/16 [History Confirmed 07/27/17] Multivitamin [Multiple Vitamins] 1 ea PO DAILY 08/28/16 [History Confirmed 07/27/17] Niacin 1,000 mg PO DAILY 08/28/16 [History Confirmed 07/27/17] Rosuvastatin Calcium [Crestor] 10 mg PO QHS 08/28/16 [History Confirmed 07/27/17] Tamsulosin HCl [Flomax] 0.4 mg PO DAILY 7 Days cap 08/28/16 [Rx] Valsartan/Hydrochlorothiazide [Diovan Hct 160-25 mg Tablet] 1 ea PO DAILY 08/28/16 [History Confirmed 07/27/17] Warfarin Sodium [Coumadin] 4 mg PO MOTUWETHFRSA 08/28/16 [History Confirmed 07/25/17] Warfarin [Coumadin (PBKC)] 1 mg PO ABAD 08/28/16 [History Confirmed 07/25/17] Ejection fraction %: 60 to 64 PFSH 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) Atrial fibrillation (Chronic) Surgical History History of appendectomy (Chronic) H/O tubal ligation (Resolved) History of cholecystectomy (Resolved) History of hysterectomy (Resolved) History of tonsillectomy (Resolved) Family History Father Hypertension Myocardial infarction CAD (coronary artery disease) Mother FH: rheumatic fever FH: CHF (congestive heart failure) Brother FH: atrial fibrillation Sister Breast cancer Social History Smoking Status: Never smoker alcohol intake: current alcohol intake frequency: a few times a month Alcohol type: wine, hard liquor substance use type: does not use caffeine: Yes Type: coffee, carbonated beverages what type of physical activity do you participate in: walking, other details: tredmill frequency: 5-6 times per week duration: 15-30 minutes/day seatbelt use: always do you feel safe at home: Yes ROS Const Const: Negative for fatigue, weakness, body ache, fever(s) or chills ENT ENT: Negative for dizziness Cardio Chest Pain: No Palpitations: No Edema: None Muscle aches with walking: None Resp Respiratory: Negative for SOB with activity, SOB at rest, SOB orthopnea\SOB lying down or paroxysmal nocturnal dyspnea GI GI: Negative nausea, black,tarry stools, bright, red blood in stools or vomiting blood/hematemesis : Negative for hematuria or frequent nighttime urination/ nocturia Musc Musc: Negative for muscle aches/ myalgia Neuro Neuro: Negative for weakness, dizziness, lightheadedness, near syncope, syncope or orthostatic symptoms Endo Endo: Negative for fatigue Cardiology Exam Const Appearance: cooperative, healthy appearing, comfortable and no acute distress Orientation: alert, awake and oriented x3 Head Head: normal to inspection Mouth: oral mucosae normal Neck Neck: no JVD and normal visual inspection Carotids: normal carotid upstroke Chest Chest inspection: normal inspection of the chest and normal respiratory effort Auscultation: Bilateral: Clear to Auscultation Cardio Rate: regular rate Rhythm: regular rhythm Heart sounds: S2 normal and murmur (LLSB systolic); negative rub or gallop Murmur: Grade 2/6 GI GI: normal to inspection Neuro General: alert, awake, oriented x3 and CN's II-XI intact bilaterally Skin Skin: no rashes or lesions noted Extremities Pulses: Normal: Right Posterior Tibial Pulse, Left Posterior Tibial Pulse, Right Radial Pulse, Left Radial Pulse Lower Extremity Edema: None: Bilateral Psych Psychological: normal affect Supplemental Info Echocardiogram from August 2016 showed an ejection fraction of 60% and structurally normal valves. Cardiovascular stress test from August 2015 was negative for ischemia by EKG criteria at a moderate workload. No arrhythmias were noted. No angina was noted. No atrial fibrillation was noted. Assessment AND Plan 1. Paroxysmal atrial fibrillation I48.0 Plan Patient appears to be maintaining regular rhythm. We will continue to monitor this. She will continue current medications which include antiarrhythmic, beta-josy, and Coumadin therapy. 2. Essential hypertension I10 Plan Patient's blood pressure is well-controlled today in the office. We will continue to monitor this. We will not make any medication regimen changes. 3. Mixed hyperlipidemia E78.2 Plan Patient states this is being monitored by primary care physician. She will continue with current cholesterol-lowering medications. Plan Detail Additional Comments Thank you for allowing us to participate in the patients plan of care, if you have any questions please do not hesitate to call. This note was generated using a voice recognition system and there may be incorrect words, spelling or punctuation that were not noted when reviewing the office note prior to saving. 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) Coding Level of Care Code Off vis,est,level 3 Diagnoses Paroxysmal atrial fibrillation I48.0 Essential hypertension I10 Hypertension type: essential hypertension Mixed hyperlipidemia E78.2 Hyperlipidemia type: mixed hyperlipidemia Coding Level of Care Code Off vis,est,level 3 Diagnoses Paroxysmal atrial fibrillation I48.0 Essential hypertension I10 Hypertension type: essential hypertension Mixed hyperlipidemia E78.2 Hyperlipidemia type: mixed hyperlipidemia 09/02/17 1630 <Electronically signed by Bismark CALLES> Date Bismark H Roof SUPERVISOR CARDING-C Cosigner Signature: Date (if applicable) CC: Hailey Fast DO ALLERGIES ALLERGIES DATE TYPE / CODE NAME / CODE REACTION SEVERITY SOURCE 03/28/2018 Drug Penicillins/F0 Other Unknown [facility] 20013084([facility] 14147(SNOMED M) Repository CT) 03/28/2018 Drug tetanus Swelling Unknown [facility] Allergy/4160 toxoid, Hospital 61916(SNOMED adsorbed/F0060 Repository CT) 92342(RXNORM) ENCOUNTERS ENCOUNTERS ADMIT/DISCHARGE ACCOUNT ADMITTING ENCOUNTER LOCATION SOURCE NUMBER CLASS 07/19/2018 [id number] Ambulatory Building:[facility] Repository 07/04/2018 [id number] Ambulatory Monica [place] 1 [facility] ing:MTLAB Repository 06/14/2018/ [id number] Ambulatory [place] 8 1 [facility] ing:MTLAB Repository 05/15/2018/ [id number] Ambulatory Monica [place] 8 5 [facility] ing:MTLAB Repository 04/12/2018/ [id number] Ambulatory [place] 8 2 [facility] ing:MTLAB Repository 04/11/2018 [id number] Ambulatory BMSBuilding:B [place] 5 [facility] Repository 04/11/2018 [id number] Ambulatory [place] 5 [facility] ing[facility] Repository 04/11/2018 [id number] Ambulatory [place] 5 [facility] ing:LAB.[facility]UR Repository E 03/28/2018/ [id number] Ambulatory BMSBuilding:B [place] 8 4 [facility] Repository 02/11/2018 [id number] Ambulatory [place] 9 [facility] ing:MTLAB Repository 02/10/2018/ [id number] Ambulatory [place] 8 1 [facility] ing:MTLAB Repository 02/06/2018 [id number] Ambulatory [place] 1 [facility] ing:[facility] Repository 01/16/2018/ [id number] Ambulatory Monica [place] 8 0 [facility] ing:MTLAB Repository 11/02/2017/ [id number] Ambulatory [place] 8 9 [facility] ing:MTLAB Repository 10/05/2017 [id number] Ambulatory [place] 8 [facility] ing:BI Repository 10/05/2017 [id number] Ambulatory [place] 9 [facility] ing:OPBI Repository 09/30/2017/ [id number] Ambulatory Monica [place] 8 7 [facility] ing:MTLAB Repository 09/02/2017/ [id number] [facility] [place] [facility] FUNCTIONAL STATUS FUNCTIONAL STATUS No Functional Status Records FoundEQUIPMENT EQUIPMENT No Equipment Records FoundPAYERS PAYERS ENCOUNTER GUARANTOR PAYER SUBSCRIBER SOURCE 07/19/2018 YOEL J Primary YOEL J OHIP Practices ELIOTDOB: Insurance:Medical ELIOTDOB: Repository [facility] [id number] Number: [address] [place] [address] [id number] [place] [address] [phone]: 330) Date:2971-22-37Kktc 41858Uhw: () Name:[facility] Box [facility]141 () [address]x, [place] [address]OE: 07/19/2018 Secondary YOEL J OHIP Practices Insurance:Professiona ELIOTDOB: Repository l Benefits [id number] AdminPolicy Number: [address] [id number] [address] [place] [address] Date:2001-11-01 73880Tvk: [phone] [id number] [phone] () Name:[id number] [place], [place] [address]SK: 07/19/2018 Tertiary YOEL J [place] Practices Insurance:First ELIOTDOB: Repository Federal [employer] [id number] [employer]Policy [address] Number: Effective [address] [place] [address] Date: - [address]Nmg: [phone] [id number] [phone] (HP) Name:[id number] [address] [address]OF: 07/19/2018 Tertiary YOEL J [place] Practices Insurance:[facility] ELIOTDOB: Repository ChoicePolicy Number: [id number] [address] Date:2011-03-04 - [address] [place] [address] [id number] [id number]: ([phone]) Name:[facility] [phone] () [place], [place] [address]EQ: [phone] 07/04/2018 YOEL J Primary Insurance:MED YOEL J [place] [id number] TR MUTUAL TPAPolicy ELIOTDOB: [address] Number: [id number] Hospital [address]Yix: [phone]) [id number] Repository 49 () Date:3974-83-88PS [facility] [address], [place] [address]VL: CHECK WEBSITE 07/04/2018 Secondary NOT GIVENUNK [place] Insurance:SELF PAY [facility] Number: Effective Repository Date:2018-07-03 06/14/2018 YOEL J Primary Insurance:MED YOEL J [place] [id number] TR MUTUAL TPAPolicy ELIOTDOB: [address] Number: [id number] Hospital [address]Ibq: [phone] [id number] Repository 496 () Date:9382-49-90SD [address] [address]K[place], [place] [address]XZ: CHECK WEBSITE 06/14/2018 Secondary NOT GIVENUNK [place] Insurance:SELF PAY [facility] Number: Effective Repository Date:2018-06-06 05/15/2018 YOEL J Primary Insurance:MED YOEL J [place] [id number] TR MUTUAL TPAPolicy ELIOTDOB: [address] Number: [id number] Hospital [address]Xgk: 330 [id number] Repository [phone] () Date:0116-42-45MD [address] [address]QUV[place]WG, [place] [address]ZW: CHECK WEBSITE 05/15/2018 Secondary NOT GIVENUNK [place] Insurance:SELF PAY [facility] Number: Effective Repository Date:2018-05-04 04/12/2018 YOEL J Primary Insurance:MED YOEL J [place] [id number] TR MUTUAL TPAPolicy ELIOTDOB: [address] Number: [id number] Hospital [address]Yic: 330 [id number] Repository [phone] () Date:6492-02-44XJ [address] [address], [place] [address]CX: CHECK WEBSITE 04/12/2018 Secondary NOT GIVENUNK [place] Insurance:SELF PAY [facility] Number: Effective Repository Date:2018-03-08 04/11/2018 YOEL J Primary Insurance:MED YOEL J [place] [id number] TR MUTUAL TPAPolicy ELIOTDOB: [address] Number: [id number] Hospital [address]Xzw: 330 [id number] Repository [phone] () Date:5506-48-47OG [address] [address]SFGLBZZRT, [place] [address]VZ: CHECK WEBSITE 04/11/2018 Secondary NOT GIVENUNK [place] Insurance:SELF PAY [facility] Number: Effective Repository Date:2018-04-11 04/11/2018 YOEL J Primary Insurance:MED YOEL J [place] [id number] TR MUTUAL TPAPolicy ELIOTDOB: [address] Number: [id number] Hospital [address]Shk: 330 [id number] Repository [phone] () Date:9406-51-05VV [address] [address]BVWQZVUF, [place] [address]TM: CHECK WEBSITE 04/11/2018 Secondary NOT GIVENUNK [place] Insurance:SELF PAY [facility] Number: Effective Repository Date:2018-03-28 04/11/2018 YOEL Patten Primary Insurance:MED YOEL J [place] [id number] TR MUTUAL TPAPolicy ELIOTDOB: [address] Number: [id number] Hospital [address]Xqz: 330 [id number] Repository [phone] (HP) Date:2580-84-65WB [address] [address]VIXRMNX, [place] [address]IS: CHECK WEBSITE 04/11/2018 Secondary NOT GIVENUNK [place] Insurance:SELF PAY [facility] Number: Effective Repository Date:2018-04-11 03/28/2018 YOEL Patten Primary Insurance:MED YOEL J [place] [id number] TR MUTUAL TPAPolicy ELIOTDOB: [address] Number: [id number] Hospital [address]Zxp: 330 [id number] Repository [phone] (HP) Date:6613-57-25OD [address] [address]NKCYZUXSW, [place] [address]OO: CHECK WEBSITE 03/28/2018 Secondary NOT GIVENUNK [place] Insurance:SELF PAY [facility] Number: Effective Repository Date:2018-03-28 02/11/2018 YOEL Patten Primary Insurance:MED YOEL J [place] [id number] TR MUTUAL TPAPolicy ELIOTDOB: [address] Number: [id number] Hospital [address]Fka: 330 [id number] Repository [phone] (HP) Date:5238-32-07ZW [address] [address]BUHUYQGCR, [place] [address]XG: CHECK WEBSITE 02/11/2018 Secondary NOT GIVENUNK [place] Insurance:SELF PAY [facility] Number: Effective Repository Date:2018-02-03 02/10/2018 YOEL Patten Primary Insurance:MED YOEL J [place] [id number] TR MUTUAL TPAPolicy ELIOTDOB: [address] Number: [id number] Hospital [address]Ryo: 330 [id number] Repository [phone] (HP) Date:2471-47-36OO [address] [address]DWKAHVOVZ, [place] [address]FJ: CHECK WEBSITE 02/10/2018 Secondary NOT GIVENUNK [place] Insurance:SELF PAY [facility] Number: Effective Repository Date:2018-02-10 02/06/2018 YOEL Patten Primary Insurance:MED YOEL J [place] [id number] TR MUTUAL TPAPolicy ELIOTDOB: [address] Number: [id number] Hospital [address]Gmu: 330 [id number] Repository [phone] (HP) Date:1533-28-53AZ [address] [address]LZKGYZFCQ, [place] [address]JO: CHECK WEBSITE 02/06/2018 Secondary NOT GIVENUNK [place] Insurance:SELF PAY [facility] Number: Effective Repository Date:2017-11-21 01/16/2018 YOEL Patten Primary Insurance:MED YOEL J [place] [id number] TR MUTUAL TPAPolicy ELIOTDOB: [address] Number: [id number] Hospital [address]Jgu: 330 [id number] Repository [phone] () Date:0532-63-24YK [address] [address]ZFIXFESFD, [place] [address]EH: CHECK WEBSITE 01/16/2018 Secondary NOT GIVENUNK [place] Insurance:SELF PAY [facility] Number: Effective Repository Date:2017-12-01 11/02/2017 YOEL Patten Primary Insurance:MED YOEL J [place] [id number] TR MUTUAL TPAPolicy ELIOTDOB: [address] Number: [id number] Hospital [address]Mop: 330 [id number] Repository [phone] (HP) Date:3569-55-18HJ [address] [address]DACEGIJMA, [place] [address]NQ: CHECK WEBSITE 11/02/2017 Secondary NOT GIVENUNK [place] Insurance:SELF PAY [facility] Number: Effective Repository Date:2017-10-03 10/05/2017 YOEL Patten Primary Insurance:MED YOEL J [place] [id number] TR MUTUAL TPAPolicy ELIOTDOB: [address] Number: [id number] Hospital [address]Vhl: 330 [id number] Repository [phone] (HP) Date:4610-36-53WL [address] [address]AYCRBNZE, [place] [address]OA: CHECK WEBSITE 10/05/2017 Secondary NOT GIVENUNK [place] Insurance:SELF PAY [facility] Number: Effective Repository Date:2017-10-05 10/05/2017 YOEL Patten Primary Insurance:MED YOEL J [place] [id number] TR MUTUAL TPAPolicy ELIOTDOB: [address] Number: [id number] Hospital [address]Pqx: 330 [id number] Repository [phone] (HP) Date:9232-21-15RA [address] [address]GMSEOUFUW, [place] [address]LO: CHECK WEBSITE 10/05/2017 Secondary NOT GIVENUNK [place] Insurance:SELF PAY [facility] Number: Effective Repository Date:2017-07-13 09/30/2017 YOEL Patten Primary Insurance:MED YOEL J [place] [id number] TR MUTUAL TPAPolicy ELIOTDOB: [address] Number: [id number] Hospital [address]Cbf: 330 [id number] Repository [phone] (HP) Date:7951-63-89GI [address] [address]LTPXNBDQC, [place] [address]HY: CHECK WEBSITE 09/30/2017 Secondary NOT GIVENUNK [place] Insurance:SELF PAY [facility] Number: Effective Repository Date:2017-08-05 09/02/2017 YOEL Patten Primary Insurance:MED YOEL J [place] [id number] TR MUTUAL TPAPolicy ELIOTDOB: [address] Number: [id number] Hospital [address]Fiq: 330 [id number] Repository [phone] (HP) Date:4756-57-68PQ [address] [address]LYLGPDHJY, [place] [address]TM: CHECK WEBSITE 09/02/2017 Secondary NOT GIVENUNK [place] Insurance:SELF PAY [facility] Number: Effective Repository Date:2017-06-11 SOCIAL HISTORY SOCIAL HISTORY No Social History Records FoundFAMILY HISTORY FAMILY HISTORY No Family History Records FoundADVANCE DIRECTIVES ADVANCE DIRECTIVES No Advanced Directives Records FoundINFORMATION SOURCE INFORMATION SOURCE DATE CREATED AUTHOR AUTHOR'S ORGANIZATION 07/26/2018 [facility]IP
== END 2018-06-14 12:00 | disposition home or self-care (01) ==
LOC: MTLAB 11:43
PROVIDERS: Family Provider Internal Medicine; PCP Internal Medicine; Referring Provider Internal Medicine Cardiovascular Disease; Visit Provider Internal Medicine Cardiovascular Disease
DX: I48.0 Paroxysmal atrial fibrillation (principal); Z79.01 Long term (current) use of anticoagulants
CPT/HCPCS: 36416; 85610

== ENCOUNTER 2018-07-26 11:37 | Outpatient (RCR) | payer SELFPAY ==
[2018-03-28 14:59] VITALS: BMI 37.5
[2018-07-26 12:00] LABS: Prothrombin Time Fingerstick 32.6 SEC (11.9-14.4)
--- OUTSIDE RECORDS SUMMARY | 2018-09-27 09:16 | XMS RPT_ITS | Continuity of Care Document ---
:1940 Author Organization [facility] Address [facility] [address] [place] [address] Phone Care Team Providers Name Role Phone Fast DO, Etta A Unavailable Fast DO, Etta A Unavailable Kristen CHICAS, Earline Juarez Unavailable Leilani Ash Unavailable Unavailable Manda Valdez Unavailable Unavailable Antonietta Bull Unavailable Unavailable Jefry WOODSON Mei Unavailable Galina Aceves Unavailable Unavailable Unavailable Unavailable Problems Name Dates Details Abnormal serum lipase level (R74.8, 790.5) Status: Active Abnormal urine (Renamed from Abnormal finding in urine) (R82.90, 791.9) Status: Active Acquired hypothyroidism (E03.9, 244.9) Comments: chronic stable-continue present regimen Status: Active Acute sinusitis, unspecified (J01.90, 461.9) Comments: sinusitis and bronchitis stimulated from allergies Status: Active Afib (I48.91, 427.31) Comments: following with cardio having an echo Status: Active Anticoagulant long-term use (Z79.01, V58.61) Comments: told to get INR done today with hematuria Status: Active Arthralgia of both hands (M25.541, 719.44) Comments: better- work up for inflammatory arthritis normal Status: Active Asymptomatic bilateral carotid artery stenosis (I65.23, 433.10) Comments: risk factor modification Status: Active Benign essential HTN (I10, 401.1) Comments: chronic stable-continue present regimen Status: Active Benign paroxysmal positional vertigo, unspecified laterality (H81.10, 386.11) Comments: better but give vertigo exercises Status: Active Benign positional vertigo, bilateral (H81.13, 386.11) Comments: jose r dunham recently Status: Active BMI 36.0-36.9,adult (Z68.36, V85.36) Status: Active Calcium kidney stone (N20.0, 592.0) Comments: 3mm at L UV junction, mild hydro, add flomax, water, send to urology Status: Active Cardiac dysrhythmia (I49.9, 427.9) Comments: just saw cardio reviewed letter- stable Status: Active Chronic sinusitis, unspecified (J32.9, 473.9) Status: Active Current nonsmoker (Renamed from Current non-smoker) (Z78.9, V49.89) Status: Active Deliveries (Parity) Comments: 4 Status: Active Diabetes mellitus type 2, controlled (E11.9, 250.00) Comments: chronic stable- continue present regimensugar up slight due to kenalog Status: Active Diarrhea, unspecified type (R19.7, 787.91) Status: Active Diverticulosis of colon (K57.30, 562.10) Status: Active Dysuria (R30.0, 788.1) Status: Active Encounter for screening mammogram for breast cancer (Renamed from Encounter for screening mammogram for malignant neoplasm of breast) (Z12.31, V76.12) Status: Active Encounter for screening mammogram for breast cancer (Renamed from Encounter for screening mammogram for malignant neoplasm of breast) (Z12.31, V76.12) Comments: end september Status: Active Encounter for screening mammogram for breast cancer (Renamed from Encounter for screening mammogram for malignant neoplasm of breast) (Z12.31, V76.12) Status: Active 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 vs stone treating empiracally, checking INR Status: Active Hematuria, unspecified (R31.9, 599.70) Comments: on coumadin, [facility] Status: Active Hypertensive kidney disease with chronic kidney disease, stage 1 through stage 4 or unspecified chronic kidney disease (I12.9, 403.90) Status: Active Inflamed seborrheic keratosis (L82.0, 702.11) Status: Active [facility] WELLNESS EXAM Status: Active [facility] Wellness Physical Status: Active Nausea (R11.0, 787.02) Status: Active Need for prophylactic vaccination and inoculation against influenza (Z23, V04.81) Comments: DECLINED but will come back later in the season as Nurse Visit to receive Status: Active Need for prophylactic vaccination and inoculation against influenza (Renamed from Need for immunization against influenza) (Z23, V04.81) Status: Active Need for vaccination against Streptococcus pneumoniae (Z23, V03.82) Status: Active Obstructive uropathy (N13.9, 599.60) Status: Active Osteoarthrosis (M19.90, 715.90) Status: Active Osteopenia (M85.80, 733.90) Status: Active Other and unspecified hyperlipidemia (E78.5, 272.4) Comments: pretty well contrrolled - Status: Active Other fatigue (R53.83, 780.79) Status: Active Other hyperlipidemia (E78.49, 272.4) Comments: chronic stable-continue present regimen Status: Active Other premature beats (I49.49, 427.69) Status: Active Other specified disorders of skin (L98.8, 709.8) Status: Active Postmenopausal (Renamed from Postmenopausal status) (Z78.0, V49.81) Status: Active postmenopausal without estrogen Status: Active Pregnancies () Comments: 4 Status: Active 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, 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) Comments: she will see Kristen- refer to bookkeeping manager with respect to what to eat with stones /dm and coumadin Status: Active screening Status: Active screening Status: Active screening Status: Active 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, 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: Active Swelling of joint, ankle, right (M25.471, 719.07) Comments: better Status: Active Uncontrolled type II diabetes mellitus (E11.65, 250.02) Status: Active Unspecified Diagnosis Status: Active Urgency of micturition (R39.15, 788.63) Status: Active UTI (urinary tract infection), uncomplicated (N39.0, 599.0) Status: Active Medications Name Dates Details ASPIRIN LOW DOSE, 81MG (Oral Tablet) for 0 days Refills: 0 Ordered:30-Apr-2009 Homero Valdez COQ10 MAXIMUM STRENGTH, 400MG (Oral Capsule) 1 cap qd (400 MG) Active COUMADIN, 2.5MG (Oral Tablet) 1 daily for 0 days Refills: 0 Ordered:15-Dec-2009 Walter Werner LPN Crestor 10 MG Oral Tablet 1 (one) Tablet daily for 90 days Quantity: 90 {Tablet} Refills: 3 Ordered:06-Apr-2018 Fast DO, Etta AFast DO, Etta A Start : 06-Apr-2018 Active Diovan HCT 160-25 MG Oral Tablet 1 (one) Tablet QD for 90 days Quantity: 90 {Tablet} Refills: 3 Ordered:03-Jul-2018 Fast DO, Etta AFast DO, Etta A Start : 03-Jul-2018 Active FISH OIL, 1200MG (Oral Capsule) 1 cap qd (1200 MG) Active FLECAINIDE ACETATE, 100MG (Oral Tablet) 1 two times daily for 0 days Refills: 0 Ordered:15-Dec-2009 Walter Werner LPN FLONASE, 50MCG/ACT (Nasal Suspension) 2 (two) Suspension Daily for 0 days Quantity: 3 {Suspension} Refills: 3 Ordered:14-Jun-2011 Manda Valdez Start : 14-Jun-2011 Active Comments:call is sx no improve GLUCOSAMINE CHONDROITIN COMPLX (Oral Capsule) 2 caps qd Active MetFORMIN HCl ER 500 MG Oral Tablet Extended Release 24 Hour 4 Tablet ER 24HR q andree meal for 90 days Quantity: 360 {Tablet} Refills: 3 Ordered:04-Apr-2018 Leilani Ash Start : 04-Apr-2018 Active Metoprolol Succinate ER 25 MG Oral Tablet Extended Release 24 Hour 1 (one) Tablet qd for 0 days Quantity: 90 {Tablet} Refills: 3 Ordered:23-Sep-2017 Fast DO, Etta AFast DO, Etta A Start : 23-Sep-2017 Active MULTIVITAMIN (PO Tab) 1 tab qd Active NIACIN, 500MG (Oral Capsule Extended Release) 2 (two) Capsule ER qhs / HS for 0 days Refills: 0 Ordered:25-Jun-2008 Manda Valdez Start : 25-Jun-2008 Active OneTouch Ultra Blue In Vitro Strip 1 (one) Strip tid for 90 days Quantity: 270 {Strip} Refills: 3 Ordered:13-Jul-2017 Dequan ANG, Etta Walters DO, Etta A Start : 13-Jul-2017 Active PROAIR HFA, 108 (90 Base)MCG/ACT (Inhalation Aerosol Solution) 2 (two) Puff(s) tid for 0 days Quantity: 1 {Inhaler} Refills: 0 Ordered:08-Nov-2016 Manda Valdez Start : 15-Nov-2014 Active Synthroid 75 MCG Oral Tablet 1 (one) Tablet daily for 0 days Quantity: 104 {Tablet} Refills: 3 Ordered:07-Jul-2018 Dequan ANG, Etta Walters DO, Etta A Start : 07-Jul-2018 Active Comments:take 2 sat and sun BACTRIM DS, 800-160MG (Oral Tablet) 1 Tablet bid for 7 days Quantity: 14 {Tablet} Refills: 0 Ordered:28-Aug-2012 Alyson Capps CNP Start : 28-Aug-2012 End : 04-Sep-2012 Inactive Budesonide 32 MCG/ACT Nasal Suspension 1 (one) Suspension Suspension 2 sprays each nostril daily for 90 days Quantity: 3 {[place]} Refills: 3 Ordered:14-Mar-2017 Leilani Ash Start : 19-Apr-2016 End : 14-Mar-2017 Inactive FLOMAX, 0.4MG (Oral Capsule) 1 Capsule daily for 7 days Quantity: 7 {Capsule} Refills: 0 Ordered:07-Aug-2012 Alyson Capps CNP Start : 07-Aug-2012 End : 14-Aug-2012 Inactive LEVAQUIN, 500MG (Oral Tablet) 1 (one) Tablet qd for 7 days Quantity: 7 {Tablet} Refills: 0 Ordered:15-Nov-2014 Alyson Capps CNP Start : 15-Nov-2014 End : 22-Nov-2014 Inactive Macrobid 100 MG Oral Capsule 1 (one) Capsule BID for 7 days Quantity: 14 {Capsule} Refills: 0 Ordered:25-Aug-2016 Kristen Bonilla Start : 25-Aug-2016 End : 01-Sep-2016 Inactive MACRODANTIN, 100MG (Oral Capsule) 1 Capsule bid for 7 days Quantity: 14 {Capsule} Refills: 0 Ordered:16-Mar-2011 Alyson Capps CNP Start : 16-Mar-2011 End : 23-Mar-2011 Inactive SINGULAIR, 10MG (Oral Tablet) 1 (one) Tablet qd, prn for 0 days Quantity: 90 {Tablet} Refills: 3 Ordered:29-Oct-2011 Alphonso FREY Kary Start : 25-Jan-2011 End : 29-Oct-2011 Inactive XYZAL, 5MG (Oral Tablet) 1 (one) Tablet qd for 0 days Refills: 0 Ordered:26-Mar-2008 Manda Valdez Start : 26-Mar-2008 End : 24-Sep-2008 Inactive ACTOS, 15MG (Oral Tablet) 1 (one) Tablet QD for 0 days Quantity: 90 {Tablet} Refills: 3 Ordered:01-Aug-2009 Fast DO, Etta AFast DO, Etta A Start : 01-Aug-2009 End : 01-Aug-2009 Discontinued CHERATUSSIN AC, 100-10MG/5ML (Oral Syrup) 1-2 Teaspoon Teaspoon q6-8 hrs prn cough for 0 days Quantity: 6 {[place]} Refills: 0 Ordered:01-Jan-2015 Manda Valdez Start : 15-Nov-2014 End : 01-Jan-2015 Discontinued KETOROLAC TROMETHAMINE, 10MG (Oral Tablet) 1 Tablet q6hrs x 2 days for 0 days Quantity: 8 {Tablet} Refills: 0 Ordered:17-Nov-2012 Fast DO, Etta AFast DO, Etta A Start : 17-Nov-2012 End : 17-Nov-2012 Discontinued LODINE XL, 400MG (Oral Tablet Extended Release 24 Hour) 1 (one) Tablet ER 24HR bid for 0 days Quantity: 180 {Tablet_ER_24HR} Refills: 3 Ordered:25-Jun-2008 Manda Valdez Start : 25-Jun-2008 End : 29-Oct-2009 Discontinued Comments:This order discontinued per [facility]. LODINE, 200MG (Oral Capsule) for 0 days Refills: 0 Ordered:02-Aug-2007 Manda Valdez End : 02-Aug-2007 Discontinued LODINE, 400MG (Oral Tablet) 1 QD for 0 days Refills: 0 Ordered:02-Aug-2007 Manda Valdez End : 02-Aug-2007 Discontinued Losartan Potassium-HCTZ 100-25 MG Oral Tablet 1 (one) Tablet qd for 0 days Quantity: 30 {Tablet} Refills: 6 Ordered:29-Mar-2018 Fast DO, Etta AFast DO, Etta A Start : 29-Mar-2018 End : 29-Mar-2018 Discontinued METFORMIN HCL, 500MG (MOD) (Oral Tablet Extended Release 24 Hour) 2 (two) Tablet ER 24HR q andree meal for 0 days Quantity: 60 {Tablet_ER_24HR} Refills: 3 Ordered:21-Jan-2009 Manda Valdez Start : 21-Jan-2009 End : 29-Oct-2009 Discontinued Comments:This order discontinued per -. PREDNISONE, 20MG (Oral Tablet) 1 Tablet uad for 0 days Quantity: 6 {QS} Refills: 0 Ordered:18-Dec-2014 Fast DO, Etta AFast DO, Etta A Start : 18-Dec-2014 End : 18-Dec-2014 Discontinued Comments:1 a day for 3 days then 1/2 day for 3 days with food in am ZYRTEC, 10MG (Oral Tablet) 1 (one) Tablet QD for 0 days Quantity: 90 {Tablet} Refills: 3 Ordered:02-Aug-2007 Isatu Escalera LPN Start : 02-Aug-2007 End : 25-Jan-2011 Discontinued Comments:This order discontinued per -. Allergies and Adverse Reactions Name Dates Details Penicillins (Allergy) Status: Active Tetanus (Allergy) Status: Active Past Medical History Name Dates Details Allergic rhinitis, unspecified allergic rhinitis type (477.9) Status: Inactive as of 21-Nov-2017 atypical skin lesions- rule out basal cell ca Status: Resolved as of 21-Jan-2009 BMI 34.0-34.9,adult (Z68.34, V85.34) Status: Inactive as of 21-Nov-2017 BMI 35.0-35.9,adult (Z68.35, V85.35) Status: Inactive as of 13-Jul-2017 Bronchitis (J40, 490) Status: Resolved as of 21-Jul-2012 Calcium kidney stone (N20.0, 592.0) Status: Inactive as of 06-Nov-2015 Cough (R05, 786.2) 29-Oct-2011 Status: Inactive as of 06-Nov-2015 Edema (R60.9, 782.3) Status: Inactive as of 06-Nov-2015 Finger (883.1) Comments: dog bite, did not break skin Status: Resolved as of 02-Mar-2010 Hand (882.1) Comments: rt fourth finger and knuckles tender and swollen Status: Resolved as of 02-Mar-2010 Hypertension (I10, 401.9) Status: Inactive as of 02-Jun-2010 Influenza vaccine administered (Z23, V04.81) Status: Inactive as of 28-Sep-2010 Insect bite, nonvenomous of face, neck, and scalp except eye, without mention of infection (S00.86XA, 910.4) Status: Resolved as of 21-Jul-2012 Low back pain without sciatica, unspecified back pain laterality (724.2) Comments: left side ? kidney stone Status: Inactive as of 21-Nov-2017 partial achilles tendon tear- send to pt- she is getting better but still pretty tender - will send to pt Status: Resolved as of 21-Jan-2009 Rash (R21, 782.1) Status: Resolved as of 21-Jul-2012 Right knee pain (M25.561, 719.46) Status: Inactive as of 21-Nov-2017 screening Status: Inactive as of 28-Sep-2010 Shoulder joint pain, unspecified laterality (719.41) Status: Inactive as of 21-Nov-2017 SOB (shortness of breath) on exertion (R06.02, 786.05) Status: Inactive as of 01-Aug-2009 Unspecified bacterial pneumonia (J15.9, 482.9) Status: Resolved as of 29-Feb-2012 Well woman exam with routine gynecological exam (Z01.419, V72.31) Status: Inactive as of 21-Jan-2009 Wheeze (R06.2, 786.07) Status: Resolved as of 18-Dec-2014 Procedures Procedure Dates Details Appendectomy Completed BILATERAL CATARACT SURGERY 2017 Completed Cholecystectomy Completed Colonoscopy Completed Comments: 02/17/15- no polyps, small diverticula, no repeat study necessary at this point Hysterectomy; Total Completed Comments: age 32- becuase of prolapse except part of right ovary Tonsillectomy Completed Date Value Details 11-Apr-2018 Echocardiogram Complete Result: Comments: See Note; NOTES: [facility] Cardi[facility] Services [address] [place] [address] Echo Complete 04/11/18 1052 MR#: [id number] Acct: [id number] Name: YOEL SCOTT Rep #: [id number] : 1940 77 From: Cyril Robles MD Attending Dr: Cyril Robles MD Status: REG CLI Ordering Dr: Cyril Robles MD Date: 04/11/18 Location: [facility] Sex: F C Admitted: Reason For Study: M URMUR Procedure This was a 2D Doppler, Color Flow transthoracic echocardiogram. Exam performed in department. Left Ventricle Normal LV size. Left ventricular systolic function is normal. The estimated ejection fraction is 60 %. Transmitral and pulmonary venous doppler flow suggestive of impaired relaxation of left ventricle. Transmitral diastolic flow velocities suggest mild (stage 1) diastolic dysf unction (reversed pattern). No regional wall motion abnormalities noted. Right Ventricle Normal RV size. Normal systolic function. Atria Normal left atrium. Normal right atrium. Mitral Valve Normal m itral valve. Mild (1+) eccentric mitral valve insufficiency. Tricuspid Valve Normal tricuspid valve. Mild tricuspid valve insufficiency. Aortic Valve Trisinus/trileaflet aortic valve. Mild focal aortic valve calcification. Pulmonic Valve Normal pulmonic valve. Great Vessels Normal aortic root. The pulmonary artery is normal size. Normal inferior vena cava. Pericardium/Pleural No pericardial effusi on. MMode/2D Measurements AND Calculations LVIDd: 5.1 cm IVSd: 0.88 cm Ao root diam: 3.1 cm LVIDs: 3.4 cm LVPWd: 0.89 cm LA dimension: 3.9 cm RVDd: 3.5 cm FS: 33.2 % LAV(MOD-bp): 65.0 ml EDV(MOD-sp4): 98.5 ml EDV(MOD-sp2): 97.2 ml LAV(MOD-bp) Indexed: 36.6 ml/m2 ESV(MOD-sp4): 34.6 ml EF(MOD-sp2): 65.3 % LAV(MOD-sp2): 61 .8 ml EF(MOD-sp4): 64.8 % LAV(MOD-sp4): 64.1 ml SV(MOD-sp4): 63.8 ml SV(MOD-sp2): 63.4 ml LA A4 area: 22.4 cm2 RA A4 area: 14.7 cm2 Time Measurements MV dec time: 0.21 sec Doppler Measurements AND Calculations MV E max kalli: 95.4 cm/sec La t Peak E' Kalli: 6.3 cm/sec Med Peak E' Kalli: 5.5 cm/sec MV A max kalli: 108.4 cm/sec E/E' lat: 15.2 E/E' med: 17.4 MV E/A: 0.88 __ Ao V2 max: 207.1 cm/sec LV V1 max: 81.4 cm/sec TR max kalli: 202.0 cm/sec Ao max P.2 mmHg LV V1 max P.7 mmHg TR max P.4 mmHg Ao V2 mean: 154.5 cm/sec LV V1 mean P.6 mmHg Ao mean P.4 mmHg LV V1 mean: 60.2 cm/sec Ao V2 VTI: 55.9 cm LV V1 VTI: 22.2 cm Interpretation Summary Normal LV size. Left ventricular systolic function is normal. The estimated ejection fraction is 60 %. Tra nsmitral and pulmonary venous doppler flow suggestive of impaired relaxation of left ventricle Transmitral diastolic flow velocities suggest mild (stage 1) diastolic dysfunction (reversed pattern). 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 [place], [place] [address] OFFICE VISIT Date of Service: 03/28/18 MR#: [id number] Acct: [id number] Name: YOEL SCOTT Rep #: [id number] : 1940 Provider: Cyril Robles MD Age/Sex: 77/F Location: [facility] Status: Signed HPI HPI Chief Complaint: Follow-up visit. Details: YOEL SCOTT, is a 77 F who presents to the office today for a follow-up visit. She is a lady with a history of hypertension hyperlipidemia paroxysmal atrial fibrillation who returns for routine follow-up visit. She denies any chest pain or shor tness breath or paroxysmal nocturnal dyspnea or pedal edema she has had no neck arm or jaw discomfort suggest angina and no recent palpitations. Her physical exam today demonstrates clear lung duenas re gular rate and rhythm is soft 2/6 systolic murmur noted left sternal border and no pedal edema. You do remember that her last echocardiogram demonstrated an ejection fraction of 60%. Intake Vital Sign s003/28/18 Height 4 ft 11 in 03/28/18 Weight: 186 lb 03/28/18 Body Mass Index (BMI) 37.5 03/28/18 Blood Pressure 130/78 H 03/28/18 Blood Pressure Location Lt brachial Intake Visit Reasons: 6 M FU Inter preter Required: No Accompanied by: none Is patient in pain?: No Allergies Penicillins Allergy (Verified 03/28/18 15:00) Other tetanus toxoid, adsorbed Allergy (Verified 03/28/18 15:00) Swelling Medi cations Aspirin [Aspirin, Baby] 81 mg PO DAILY@0800 08/28/16 [History Confirmed 03/28/18] Calcium Carbonate [Calcium] 600 mg PO BID 08/28/16 [History Confirmed 03/28/18] Cetirizine HCl [Zyrtec] 10 mg P O DAILY 08/28/16 [History Confirmed 03/28/18] Co Q10 200 [Co Q-10] 200 mg PO DAILY 08/28/16 [History Confirmed 03/28/18] Fish Oil/Dha/Epa [Fish Oil 1,200 mg Fish Oil] 1 ea PO DAILY 08/28/16 [History Con firmed 03/28/18] Gluc Gonzalez/Chondro Gonzalez A/Vit C/Mn [Glucosamine 1,500 Complex Cp] 1 ea PO BID 08/28/16 [History Confirmed 03/28/18] Levothyroxine [Synthroid] 75 mcg PO MOTUWETHFR 08/28/16 [History Confirmed 03/28/18] Levothyroxine [Synthroid] 150 mcg PO SUSA 08/28/16 [History Confirmed 03/28/18] Metformin HCl [Glucophage] 2,000 mg PO DINNER 08/28/16 [History Confirmed 03/28/18] Metoprolol Succinate [Topro l Xl] 25 mg PO DAILY 08/28/16 [History Confirmed 03/28/18] Multivitamin [Multiple Vitamins] 1 ea PO DAILY 08/28/16 [History Confirmed 03/28/18] Rosuvastatin Calcium [Crestor] 10 mg PO QHS 08/28/16 [Hist ory Confirmed 03/28/18] Valsartan/Hydrochlorothiazide [Diovan Hct 160-25 mg Tablet] 1 ea PO DAILY 08/28/16 [History Confirmed 03/28/18] warfarin 1 mg tablet 1 mg PO .COMPLEX 09/16/17 [History Confirmed 03/28/18] warfarin 4 mg tablet 4 mg PO .COMPLEX 09/16/17 [History Confirmed 03/28/18] flecainide 100 mg tablet 100 mg PO BID #180 tab 11/02/17 [Rx Confirmed 03/28/18] PFSH Medical History (Reviewed 0 03/28/18 @ 15:32 by Cyril Robles MD) 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) Atrial fibrillation (Chronic) Surgical History History of appendec shaina (Chronic) H/O tubal ligation (Resolved) History of cholecystectomy (Resolved) History of hysterectomy (Resolved) History of tonsillectomy (Resolved) Family History Father Hypertension Myocardial infarction CAD (coronary artery disease) Mother FH: rheumatic fever FH: CHF (congestive heart failure) Brother FH: atrial fibrillation Si ster Breast cancer Social History Smoking Status: Never smoker alcohol intake: current alcohol intake frequency: a few times a month Alcohol type: wine, hard liquor substance use type: does not use ca ffeine: Yes Type: coffee, carbonated beverages what type of physical activity do you participate in: walking, other details: tredmill frequency: 5-6 times per week duration: 15-30 minutes/day seatbelt u se: always do you feel safe at home: Yes ROS Const Const: Negative for fatigue, weakness, night sweats, excessive sweating, frequent falls, headache(s) or daytime sleepiness Eyes Eyes: Negative for loss of peripheral vision, transient loss of vision, blind spots, double vision or blurry vision ENT ENT: Negative for headache(s), dizziness, balance problems, Nosebleed/epistaxis, tongue swelling or l ip swelling Cardio Chest Pain: No Palpitations: No Edema: None Muscle aches with walking: None Resp Respiratory: Negative for SOB at rest, SOB orthopnea\SOB lying down, Cough, paroxysmal nocturnal dyspn ea or SOB with activity GI GI: Negative nausea, vomiting, heartburn, black,tarry stools or bright, red blood in stools : Negative for hematuria Musc Musc: Negative for balance problems, muscle ache s/ myalgia, muscle weakness or joint pain Skin Skin: Negative non-healing lesions, unusual bruising or rash Neuro Neuro: Negative for weakness, frequent falls, headache(s), double vision, dizziness, lig htheadedness, orthostatic symptoms, blurry vision or lack of coordination Skyler Hematologic/Lymphatic: Negative for easy bruising or easy bleeding Endo Endo: Negative for fatigue, excessive sweating, col d intolerance, heat intolerance, increased thirst/drinking or hair loss Psych Psych: Negative for anxiety or depression Allergy Allergy/Immunology: Negative for throat swelling, Negative for tongue swel ling, Negative for hives, Negative for rash, Negative for lip swelling Cardiology Exam Const Appearance: cooperative, healthy appearing, well developed, well groomed and no acute distress Nutritional Appearance: well nourished and average body habitus Orientation: alert, awake and oriented x3 Head Head: normal to inspection, normocephalic and atraumatic Ears: hearing grossly normal bilaterally and e xternal ears normal Nose: external nose normal, nasal mucous membranes and turbinates normal, nares normal, septum normal, no nasal discharge Face and Sinus: face symmetric Mouth: oral mucosae normal, t ongue normal, oropharynx normal and moist mucous membranes Teeth and gingiva: dentition normal Throat: posterior oropharynx normal, tonsils normal and uvula midline Eyes General: appearance normal, both eyes and all related structures Eyelids: eyelids normal Conjunctivae: conjunctivae normal Pupils: PERRL, normal by confrontation and accommodation normal EOM: EOM intact bilaterally Neck Neck: normal v isual inspection, trachea midline and no JVD JVD: +5 Carotids: normal carotid upstroke and bounding pulses Chest Chest inspection: normal inspection of the chest, symmetric chest movement and normal res piratory effort Auscultation: Bilateral: Clear to Auscultation Cardio Palpation: normal PMI Rate: regular rate Rhythm: regular rhythm Heart sounds: S1 normal and S2 normal Murmur: Grade 2/6, soft and ea rly systolic GI GI: normal to inspection, soft, no hepatosplenomegaly and bowel sounds present Neuro General: alert, awake, oriented x3, no focal sensory deficit, gait normal and moves all extremities S kin Skin: no rashes or lesions noted Extremities Pulses: Normal: Right Femoral Pulse, Left Femoral Pulse, Right Dorsalis Pedis Pulse, Left Dorsalis Pedis Pulse, Right Posterior Tibial Pulse, Left Generator Operator Straight Bevel Gear ior Tibial Pulse, Right Radial Pulse, Left Radial Pulse Lower Extremity Edema: None: Bilateral Musculoskel Musculoskeletal: No joint tenderness Psych Psychological: normal affect Assessment AND Plan 1 . Hypertension I10 Plan Her blood pressure continues to be under excellent control on the current medical therapy I would not recommend that we make any changes at this time on her regimen. 2. Hyperlip idemia E78.5 Plan She does have a history of hyperlipidemia and has been on medium intensity statin. This will be continued routine lipid profiles will also be obtained. 3. Paroxysmal atrial fibrillati on I48.0 Plan She has a history of paroxysmal atrial fibrillation. She has been on anticoagulation as well as antiarrhythmic therapy and beta-josy her electric cardiogram today here today demonstrate s sinus rhythm with a rate of 58 bpm and normal intervals. No changes will be made she would maintain an INR of 2-3. Orders Orders: 4. Murmur, cardiac R01.1 Plan She does have a cardiac murmur suggesti ve of aortic sclerosis and mild stenosis. My recommendation will be to obtain a formal echocardiogram to assess the above. She also did have a carotid ultrasound which demonstrated less than 50% stenosi s of the extracranial right internal carotid artery and moderate 50-69% percent stenosis of the left internal carotid vessel. Thank you for allowing me to participate in the care of your patient. Pleas e don't hesitate to call if any issues arise Orders Orders: Plan Detail Other Medications Discontinued: Follow Up 1 Year ([facility]) Coding Level of Care Code Off vis,est,level 3 Diagnoses Hypertension I 10 Hyperlipidemia E78.5 Paroxysmal atrial fibrillation I48.0 Murmur, cardiac R01.1 Coding Level of Care Code Off vis,est,level 3 Diagnoses Hypertension I10 Hyperlipidemia E78.5 Paroxysmal atrial fibr illation I48.0 Murmur, cardiac R01.1 03/28/18 1537 <Electronically signed by Cyril Robles MD> Date Cyirl Robles MD Cosigner Signatur e: Date (if applicable) CC: Etta Lopez DO 28-Mar-2018 12 Lead EKG performed by BMS Result: Comments: See Note; NOTES: [facility] [place] [address] [place] [address] 12 Lead EKG performed by BMS 03/28/18 150 MR#: [id number] Acct: [id number] Name: YOEL SCOTT Rep #: [id number] : 1940 77 From: Cyril Robles MD Attending Dr: Cyril Robles MD Status: DEP [facility] Ordering Dr: Cyril Robles MD Date: 03/28/18 [place] [facility] [place] Sex: F C Admitted: ORDER # : [id number] BMS/12 Lead EKG performed by BMS Sinus Bradycardia Low voltage in precordial leads. - Negative precordial -waves -Probably normal -consider anteroseptal ischemia. ABNORMAL 03/29/18 1305 & amp;#60;Electronically signed by Cyril Robles MD> Date Cyril Robles MD CC: Etta Lopez DO Date Dictated: 03/28/181505 Date Transcribed: 03/28/181505 Buffet Waiter/Waitress: CO Signed 28-Mar-2018 12 Lead EKG performed by BMS Result: Comments: See Note; NOTES: [facility] [place] [address] [place] [address] 12 Lead EKG performed by [facility] 03/28/18 1506 MR#: [id number] Acct: [id number] Name: YOEL SCOTT Rep #: [id number] : 1940 77 From: Cyril Robles MD Attending Dr: Cyril Robles MD Status: DEP [facility] Ordering Dr: Cyril Robles MD Date: 03/28/18 [place] [facility] [place] Sex: F C Admitted: ORDER # : [id number] BMS/12 Lead EKG performed by [facility] ECG Report Interpretation Sinus Bradycardia Low voltage in precordial leads. - Negative precordial T-waves - Probably normal -consid er anteroseptal ischemia. ABNORMAL Electronically signed on 06/07/2018 at 11:38 by Cyril Robles [employer] Software Version [id number] 06/07/18 1146 Date Cyril Robles MD CC: Etta Lopez DO Date Dictated: 03/28/181505 Date Transcribed: 03/28/18 150 Buffet Waiter/Waitress: CO Signed 08-Feb-2018 Carotid Duplex Ultrasound Result: Comments: See Note; NOTES: [facility] Cardi[facility] Services [address] [place] [address] Carotid Duplex Ultrasound 02/06/18 0958 MR#: [id number] Acct: [id number] Name: YOEL LERMA Rep #: [id number] : 1940 77 From: Hermann Gaspar MD Attending Dr: Etta Lopez DO Status: REG CLI Ordering Dr: Etta Lopez DO Date: 02/06/18 Location: [facility] Sex: F C Admitted: [facility] n For Study: Carotid Stenosis Rt. Velocities/BP Lt. [...] Antegrade flow is noted in the left verteb ral artery. Procedure Carotid Duplex 95307. Exam performed in department. Interpretation Summary Mild (<50%) stenosis right extracranial internal carotid. Moderate (50- 69%) stenosis left extra cranial internal carotid. Flow within the vertebral arteries is antegrade bilaterally. Ordering P hysician: Etta Lopez Referring Physician: Etta Lopez Performed By: Alyssa Rodrigues, RDCS, RVT [address] Date Hermann Gaspar MD CC: Etta Lopez DO Date Dictated: 02/06/18 0958 Date Transcribed: 02/08/18749 Buffet Waiter/Waitress: Signed 05-Oct-2017 SCREENING MAMM (CAD), BILAT Result: Comments: See Note; NOTES: [facility] Imaging Services [address] [place] [address] SCREENING MAMM (CAD), BILAT MR#: [id number] Acct: [id number] Name: YOEL SCOTT Rep #: [id number] : 1940 F 77 From: Elmer Sexton MD PCP: Etta Lopez DO Status: REG CLI Study: SCREENING MAMM (CAD), BILAT Date of Exam: 10/05/17 Exam# [id number] Ordering Dr: Etta Lopez DO [facility] MOGRAPHY - BILATERAL SCREENING REASON FOR EXAM: Female, 77 years old. Routine annual screening examination. PERTINENT HISTORY: Non-contributory. TECHNIQUE: Digital bilateral breast jerome (3D mammograp hic acquisition) in the CC and MLO projections. 2-D mediolateral oblique (MLO) and craniocaudad (CC) views of both breasts were obtained. CAD: Full Field Digital Mammography with Computer Added Detectio n was performed. COMPARISON: Comparison is made with prior study dated September 29, 2016 and September 29, 2015. FINDINGS: Breast Composition: The breasts are heterogeneou sly dense, which may obscure small masses. There are no dominant masses or suspicious calcifications. Stable bilateral secretory calcifications. Stable bilateral benign-appearing axillary lymph nodes. No other significant abnormalities are identified. There has been no significant change since the prior study. BI/SCREENING MAMM (CAD), BILAT IM PRESSION: Stable bilateral screening mammogram. Yearly follow-up mammogram recommended. (A) ASSESSMENT CATEGORY: BIRADS Category 2: Benign. A letter regarding these results will be sent to the patient by the facility within 30 days. Approximately 10% of breast cancers are not detected by mammography. A normal mammogram should not delay biopsy of a clinically susp icious abnormality. [id number] Electronically Signed: Elmer Sexton MD at 13:49 EDT Tel [phone], Service support , CC: Etta Lopez DO Buffet Waiter/Waitress: Signed 02-Sep-2017 Cardiology Visit Report Result: Comments: See Note; NOTES: [facility] [address] [place] [address]. [address] [place] [address] OFFICE VISIT Date of Service: 09/02/17 MR#: [id number] Acct: [id number] Name: YOEL SCOTT Rep #: [id number] : 1940 Provider: KIZZY Rodrigues Age/Sex: 77/F Location: [facility] [place] Status: Signed HPI HPI Details: YOEL SCOTT, is a 77 F who presents to the office today for cardiovascular o utpatient follow-up. Patient has history of paroxysmal atrial fibrillation, hypertension, and hyperlipidemia. Pt. denies chest, arm, jaw, or neck discomfort. Her exercise tolerance is stable via walkin g on the treadmill. Pt. denies symptoms of CHF, palpitations, lightheadedness, dizziness, near syncope, or syncopal episodes. Pt. denies edema or claudication issues. Pt. denies orthopnea, PND, fever, c hills, blood in urine, blood in stool, myalgia, or unexplainable fatigue. Intake Vital Signs09/02/17 Height 4 ft 11 in 09/02/17 Weight: 184 lb 09/02/17 Body Mass Index (BMI) 37.1 09/02/17 Blood Pressu re 132/68 09/02/17 Blood Pressure Location Lt brachial Intake Visit Reasons: 6 M FU Allergies Penicillins Allergy (Verified 08/28/16 14:53) Other tetanus toxoid, adsorbed Allergy (Verified 08/28/16 1 4:53) Swelling Medications Aspirin [Aspirin, Baby] 81 mg [...] PO BID 08/28/16 [History Confirmed 07/27/17] Gluc Gonzalez/Chondro Gonzalez A/Vit C/Mn [Glucosamine 1,500 Complex Cp] 1 ea PO BID 08/28/16 [History Confirmed 07/27/17] Hydrocodone Bitart/Apap 5-325 [Powhatan 5/325] 1 tab PO Q6H PRN PRN #20 tab 08/28/16 [Rx] Levothyroxine [Synthroid] 75 mcg PO MOTUWETHFR 08/28/16 [History Confirmed 08/28/16] Levothyro xine [Synthroid] 150 mcg PO SUSA 08/28/16 [History Confirmed 07/27/17] Metformin HCl [Glucophage] 2,000 mg PO DINNER 08/28/16 [History Confirmed 07/27/17] Metoprolol Succinate [Toprol Xl] 25 mg PO DAILY 08/28/16 [History Confirmed 07/27/17] Multivitamin [Multiple Vitamins] 1 ea PO DAILY 08/28/16 [History Confirmed 07/27/17] Niacin 1,000 mg PO DAILY 08/28/16 [History Confirmed 07/27/17] Rosuvastatin Ca lcium [Crestor] 10 mg PO QHS 08/28/16 [History Confirmed 07/27/17] Tamsulosin HCl [Flomax] 0.4 mg PO DAILY 7 Days cap 08/28/16 [Rx] Valsartan/Hydrochlorothiazide [Diovan Hct 160-25 mg Tablet] 1 ea PO DA VANDANA 08/28/16 [History Confirmed 07/27/17] Warfarin Sodium [Coumadin] 4 mg PO MOTUWETHFRSA 08/28/16 [History Confirmed 07/25/17] Warfarin [Coumadin (PBKC)] 1 mg PO GONZALEZ 08/28/16 [History Confirmed 07/25/17 ] Ejection fraction %: 60 to 64 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) Atrial fibrillation (Chronic) Surgical History History of appendectomy (Chronic) H/O tubal li gation (Resolved) History of cholecystectomy (Resolved) History of hysterectomy (Resolved) History of tonsillectomy (Resolved) Family History Father Hypertension Myocardial infarction CAD (co ronary artery disease) Mother FH: rheumatic fever FH: CHF (congestive heart failure) Brother FH: atrial fibrillation Sister Breast cancer Social History Smoking Status: Never smoker alcohol intake: current alcohol intake frequency: a few times a month Alcohol type: wine, hard liquor substance use type: does not use caffeine: Yes Type: coffee, carbonated beverages what type of physical a ctivity do you participate in: walking, other details: tredmill frequency: 5- 6 times per week duration: 15-30 minutes/day seatbelt use: always do you feel safe at home: Yes ROS Const Const: Neg ative for fatigue, weakness, body ache, fever(s) or chills ENT ENT: Negative for dizziness Cardio Chest Pain: No Palpitations: No Edema: None Muscle aches with walking: None Resp Respiratory: Negative f or SOB with activity, SOB at rest, SOB orthopnea\SOB lying down or paroxysmal nocturnal dyspnea GI GI: Negative nausea, black,tarry stools, bright, red blood in stools or vomiting blood/hematemesis G U: Negative for hematuria or frequent nighttime urination/ [...] (LLSB systolic); negative rub or gallop Murmur: Grad e 2/6 GI GI: normal to inspection Neuro General: alert, awake, oriented x3 and CN's II-XI intact bilaterally Skin Skin: no rashes or lesions noted Extremities Pulses: Normal: Right Posterior Tibial Puls e, Left Posterior Tibial Pulse, Right Radial Pulse, Left Radial Pulse Lower Extremity Edema: None: Bilateral Psych Psychological: normal affect Supplemental Info Echocardiogram from August 2016 show ed an ejection fraction of 60% and structurally normal valves. Cardiovascular stress test from August 2015 was negative for ischemia by EKG criteria at a moderate workload. No arrhythmias were noted. No angina was noted. No atrial fibrillation was noted. Assessment AND Plan 1. Paroxysmal atrial fibrillation I48.0 Plan Patient appears to be maintaining regular rhythm. We will continue to monitor t his. She will continue current medications which include antiarrhythmic, beta- josy, and Coumadin therapy. 2. Essential hypertension I10 [...] you have any questions please do not he sitate to call. This note was generated using a voice recognition system and there may be incorrect words, spelling or punctuation that were not noted when reviewing the office note prior to saving. Fo llow Up 6 Months ([employer]) Coding Level of Care Code Off vis,est,level 3 Diagnoses Paroxysmal atrial fibrillation I48.0 Essential hypertension I10 Hypertension type: essential hypertension Mixed hyperlip idemia E78.2 Hyperlipidemia type: mixed hyperlipidemia Coding Level of Care Code Off vis,est,level 3 Diagnoses Paroxysmal atrial fibrillation I48.0 Essential hypertension I10 Hypertension type: essen tial hypertension Mixed hyperlipidemia E78.2 Hyperlipidemia type: mixed hyperlipidemia 09/02/17 1630 <Electronically signed by Bismark CALLES> Date Bismark Siria Lilia SUPPORT SERVICE TECH-C Cosigner Signature: Date (if applicable) CC: Etta Lopez DO 25-Jul-2017 Knee 4 or More Views Result: Comments: See Note; NOTES: [facility] Imaging Services [address] [place] [address] Knee 4 or More Views MR#: [id number] Acct: [id number] Name: YOEL SCOTT Rep #: [id number] : 1940 F 77 From: Elmer Sexton MD PCP: Etta Lopez DO Status: REG RCR Study: Knee 4 or More Views Date of Exam: 07/25/17 Exam# [id number] Ordering Dr: Etta Lopez DO STUDY: X-RAY - RI GHT KNEE REASON FOR EXAM: Female, 77 years old. Right knee pain. TECHNIQUE: 4 view(s) of the knee. COMPARISON: None. FINDINGS: Normal visualized distal femur. Nor mal visualized proximal tibia and fibula. Normal proximal tibiofibular articulation. There is mild degenerative arthrosis of the medial femorotibial compartment. There is mild degenerative arthrosis of the lateral femorotibial compartment. Normal patellofemoral articulation. Chondrocalcinosis of the medial and lateral menisci. The soft tissue structures are unremarkable. RAD/Knee 4 or More Views IMPRESSION: Degenerative arthrosis. Chondrocalcinosis. Electronically Signed: Elmer Sexton MD at 13:40 EST Tel [phone], Spacebaric e support , CC: Etta Lopez DO Buffet Waiter/Waitress: Signed 09-Feb-2017 Carotid Duplex Ultrasound Result: Comments: See Note; NOTES: [facility] [address] [place] [address] Carotid Duplex Ultrasound 01/31/17 1002 MR#: [id number] Acct: [id number] Name: YOEL LERMA Rep #: [id number] : 1940 76 From: Hermann Gaspar MD Attending Dr: Etta Lopez DO Status: REG CLI Ordering Dr: Etta Lopez DO Date: 01/31/17 Location: [facility] Sex: F C Admitted: Reaso n For Study: STENOSIS Rt. Velocities/BP Lt. Velocities/BP Prox CCA 73/15 cm/sec. Prox CCA 79/19 cm/sec. Mid CCA 91/26 cm/sec. Mid CCA 81/23 cm/sec. Dist CCA 82/23 cm/sec. Dist CCA 82/25 cm/sec. Prox IC A 81/24 cm/sec. Prox ICA 74/22 cm/sec. Mid ICA 83/22 cm/sec. Mid ICA 132/42 cm/sec. Dist ICA 140/36 cm/sec. Dist ICA 154/41 cm/sec. Rt. ICA/CCA = 1.5. Lt. ICA/CCA = 1.9. Prox ECA 73/12 cm/sec. Prox ECA 52/8 cm/sec. Rt. Vert. 59/16 cm/sec. Lt. Vert. 87/23 cm/sec. Right Extracranial There is intimal thickening but no significant atherosclerotic plaque noted in the right common carotid artery. There is no significant atherosclerotic plaque noted in the right internal carotid artery. There is heterogeneous, irregular atherosclerotic plaque noted in the right external carotid artery. Antegrade flow is n oted in the right vertebral artery. There is heterogeneous, irregular atherosclerotic plaque noted in the right bulb. Left Extracranial There is intimal thickening but no significant atherosclerotic pl aque noted in the left common carotid artery. There is no significant atherosclerotic plaque noted in the left internal carotid artery. The left internal carotid artery is very tortuous. The tortuous na ture of the left internal carotid artery may result in flow velocities overestimating the degree of stenosis. There is homogeneous, smooth atherosclerotic plaque noted in the left external carotid arter y. Antegrade flow is noted in the left vertebral artery. There is heterogeneous, smooth atherosclerotic plaque noted in the left bulb. Procedure Carotid Duplex 62615. Exam performed in department. Int erpretation Summary Mild (<50%) stenosis right extracranial internal carotid. Moderate (50-69%) stenosis left extracranial internal carotid. Flow within the vertebral arteries is antegrade bilat erally. Ordering Physician: Etta Lopez Performed By: Jessica Nicholas, BEVERLY, RVT Electronically si gned by: MD Hermann Gaspar on 02/09/2017 07:39 AM 02/09/17 0739 Date Hermann Gaspar MD CC: Etta Lopez DO Date Dictated: 01/31/17 1002 Date Transcrib ed: 02/09/17 0739 Buffet Waiter/Waitress: Signed 29-Sep-2016 Dexa Bone Density Study () Result: Comments: See Note; NOTES: [facility] Imaging Services [address] [place] [address] Verdana 4d Dexa Bone Density Study () MR#: [id number] Acct: [id number] Name: SONIALIYA GARRY Patten Rep #: [id number] : 1940 F 76 From: Elmer Sexton MD PCP: Etta Lopez DO Status: REG CLI Study: Dexa Bone Density Study () Date of Exam: 09/29/16 Exam# [id number] Ordering Dr: Leonor Lopez DO STUDY: DUAL ENERGY X-RAY ABSORPTIOMETRY / DXA REASON FOR EXAM: Female, 76 years old. Early menopause. Loss of height. TECHNIQUE: Bone Mineral Density (BMD) measurements of lumbar spine and b ilateral hips were obtained. COMPARISON: Comparison is made with prior study dated March 25, 2010. FINDINGS: Lumbar Spine (L1-L4): g/cm2 (1.317) / T-score (1.2 ) / Z-score (3.0) Findings are suggestive of normal bone density with a low fracture risk. Left Femur Total: g/cm2 (0.964) / T-score (-0.3) / Z-score (1.5) Left Femoral Neck: g/cm2 (0.803) / T-score (- 1.7) / Z-score (0.3) Right Femur Total: g/cm2 (0.929) / T-score (-0.6) / Z-score (1.2) Right Femoral Neck: g/cm2 (0.869) / T-score (-1.2) / Z-score (0.8) The T-Scores on the most recent prior examinati on were: Lumbar Spine (L1-L4): There has been improvement of bone density since the previous examination. Left Femur Total: which represents a worsening of 1.3%. Right Femur Total: which represents a worsening of 0.2%. HPBD/Dexa Bone Density Study (HP) IMPRESSION: The patient is considered osteopenic as outlined below according to World Loyd Organization (WHO) criteria with a moderate fracture risk. There has been worsening of bone density since the previous examination. Reference Information: The T-sco re is the number of standard deviations above or below the standard which is normal for young adults at their peak bone mineral density. The World Health Organization (WHO) interprets the T-scores as fo llows: Above -1 Normal bone density Between -1 and -2.5 Osteopenia Equal to / or below -2.5 Osteoporosis As a practical clinical guideline, osteopenia may be graded as follows: Mild -1 through -1.5 Mo derate -1.6 through -2.0 Severe -2.1 through -2.4 The Z-score is the number of standard deviations above or below age-matched controls. A Z-score of less than -1.5 would be considered abnormal. Refere nces: 1. NIH Osteoporosis and Related Bone Diseases http://www.osteo.org 2. International Society for Clinical Densitometry http://www.iscd.org 3. National Osteoporosis Foundation http://www.nof.org El ectronically Signed: Elmer Sexton MD at 10:48 EDT Tel [phone], Service support [phone], CC: Etta Lopez DO Buffet Waiter/Waitress: Signed 29-Sep-2016 SCREENING MAMM (CAD), BILAT Result: Comments: See Note; NOTES: [facility] Imaging Services [address] [place] [address] Verdana 4d SCREENING MAMM (CAD), BILAT MR#: [id number] Acct: [id number] Name: ZACH SCOTT Rep #: [id number] : 1940 F 76 From: Elmer Sexton MD PCP: Etta Lopez DO Status: REG CLI Study: SCREENING MAMM (CAD), BILAT Date of Exam: 09/29/16 Exam# [id number] Ordering Dr: Claribel Lopez ra, DO MAMMOGRAPHY - BILATERAL SCREENING REASON FOR EXAM: Female, 76 years old. Routine annual screening examination. PERTINENT HISTORY: Sister with breast cancer. TECHNIQUE: Digital bilateral breas t jerome (3D mammographic acquisition) in the CC and MLO projections. 2-D mediolateral oblique (MLO) and craniocaudad (CC) views of both breasts were obtained. CAD: Full Field Digital Mammography with Com puter Added Detection was performed. COMPARISON: Comparison is made with prior study dated September 29, 2015 and September 25, 2014. FINDINGS: Breast Composition: There ar e scattered areas of fibroglandular density. There are no dominant masses or suspicious calcifications. Stable secretory calcifications bilaterally. No other significant abnormalities are identified. There has been no significant change since the prior study. HPBI/SCREENING MAMM (CAD), BILAT IMPRESSION: Stable bilateral screening mammogram. Ye gi follow-up mammogram recommended. (A) ASSESSMENT CATEGORY: BIRADS Category 2: Benign. A letter regarding these results [facility]. Approximately 10% of breast cancers are not detected by mammography. A normal mammogram should not delay biopsy of a clinically suspicious abnormality. [id number] Electronically Signed : Elmer Sexton MD at 12:22 EDT Tel [phone], Service support [phone], CC: Etta Lopez DO Buffet Waiter/Waitress: Signed 03-Sep-2016 Emergency Department Summary Result: Comments: See Note; NOTES: [facility] Medical Records Department [facility] [place] [address] Emergency Department Summary MR#: [id number] Acct: [id number] Name: ZACH SCOTT Rep #: [id number] : 1940 76 From: Micaela Noe MD PCP: Etta Lopez DO Status: DEP ER DATE OF SERVICE: 08/28/2016 HISTORY OF PRESENT ILLNESS: The patient presents for flank pain. Onset was today. The patient has a severe aching in the left lower back, worse with remaining still. She denies fever. She does have associated nausea and hematuria. The patient is currently on day #4 of antibiot ics for urinary tract infection. She has been taking nitrofurantoin. She endorses nausea. Denies vomiting or diarrhea. She does have a history of prior kidney stones. PHYSICAL EXAMINATION: VITAL SIGNS: Reviewed. The patient is afebrile, hemodynamically stable. GENERAL: Well nourished and well developed, sitting on the very edge of the bed, appears uncomfortable. HEENT: Head is normocephalic and atrau matic. Pupils are equal, round and reactive to light and extraocular movement is intact. Mucous membranes are moist. HEART: Regular rate and rhythm without murmur. LUNGS: Clear to auscultation bilateral ly. ABDOMEN: Soft, nontender, nondistended with normal bowel sounds, positive CVA tenderness on the left. EXTREMITIES: Nontender, no edema, no rash. Pulses are 2+ and symmetric. No rash noted to the tor so. No focal neuro deficits. EMERGENCY DEPARTMENT COURSE: Based on history and exam, this is suspicious for a kidney stone. The patient was given IV fluids, morphine and Zofran for symptomatic relief. CBC showed a leukocytosis of 14.7. BMP showed no renal dysfunction. Urinalysis is positive for hematuria. A CT of the flank was performed that showed a 4.8 mm mildly obstructing stone in the left ureter . The patient was given Toradol for additional pain control. The stone is small enough that it will likely pass on its own. The patient was prescribed Flomax and given a prescription for Powhatan for pain at home. She is on Coumadin and limited in the pain medication she can take. She was more comfortable prior to discharge and resting comfortably in bed. She is established with Dr. Peterson and will follo w up with him next week. The patient is discharged home with family. IMPRESSION: Renal colic, left urolithiasis. MICAELA NOE MD T: NTS JOB: [id number] 09/03/16 0822 <Electronically signed by Micaela Noe MD> Date Micaela Noe MD Cosigner Signature (If Indicated): Date CC: Claribel Lopez DO Date Dictated: 08/28/162207 Date Transcribed: 08/28/162207 Buffet Waiter/Waitress: Signed 29-Aug-2016 Discharge Instruction Result: Comments: See Note; NOTES: [facility] Medical Records Department [address] [place] [address] Discharge Instruction 08/28/16 1713 MR#: [id number] Acct: [id number] Name: SONIAMarian MANN Rep #: [id number] : 1940 76 From: Micaela Noe MD PCP: Etta Lopez DO Status: DEP ER ED Disposition - Plan for ED Patient: Disposition: Home or Assisted Living Chief Complaint: Flank Pain Instructions: ED Stone Renal W Colic Prescriptions: Hydrocodone Bitart/Apap 5-325 [Powhatan 5/325] 1 tablet PO Q6H PRN PRN #20 tablet PRN Reason: Pain Tamsulosin HCl [Flomax] 0.4 mg PO DAILY 7 Days R eferrals: Etta Lopez DO [Primary Care Provider] - As Needed Amaury Peterson MD [STAFF PHYSICIAN] - 3-5 Days if not improving What to do if you have Problems For any increased pain, shortness of breath, bleeding, nausea or vomiting, chest pain, or any unexpected problems, contact your Primary Care Provider. Call [facility] ([phone]) or report to the closest Emergency Room. Call 911 if necessary. 08/29/16 0043 <Electronically signed by Micaela Noe MD> Date Micaela Noe MD Cosigner Signature (If Indicated): Date CC: Etta Lopez DO 28-Aug-2016 Abdomen/Pelvis without Cont Result: Comments: See Note; NOTES: [facility] Imaging Services [address] [place] [address] Verdana 4d Abdomen/Pelvis without Cont MR#: [id number] Acct: [id number] Name: ZACH SCOTT Rep #: [id number] : 1940 F 76 From: Monica Faye DO PCP: Etta Lopez DO Status: REG ER Study: Abdomen/Pelvis without Cont Date of Exam: 08/28/16 Exam# [id number] Ordering Dr: Micaela Noe STUDY: CT ABDOMEN AND PELVIS WITHOUT CONTRAST REASON FOR EXAM: Female, 76 years old. Left flank pain. Antibiotic therapy for UTI started 4 days ago. Previous appendectomy, SONYA/BSO, cholecystectomy RADIATION DOSAGE (If Supplied By Facility): CTDIvol = ( 22.54 ) mGy, DLP = ( 1013.62 ) mGycm TECHNIQUE: Transaxial images were obtained from the dome of the diaphragm to the symphysis pubis without or al contrast, and without intravenous contrast. Sagittal and coronal images were reconstructed. Individualized dose optimization techniques were used for this CT. COMPARISON: 08/07/2012 FINDINGS: There are mild fibrotic changes in the lung bases which appear stable. There is mild cardiomegaly, also unchanged. Normal liver. There are surgical clips in the gallbladde r fossa consistent with a prior cholecystectomy. Normal spleen. Normal pancreas. Normal bilateral adrenal glands. There is a 1.3 x 1.0 cm parapelvic cyst with fluid density in the upper pole of the ri ght kidney image 67 series 2 image 73 series 601 without significant change. There is a 9 x 5.5 mm calculus in the lower pole calyx. The calyx is mildly dilated. The calculus has increased from previous 3.5 mm 08/07/2012. There is mild dilatation of the upper pole calyces. There is mild dilatation of the left ureter extending into the pelvis where there is a 4.8 mm obstructing calculus image 132, locate d approximately 1 cm above the ureterovesical junction. There is asymmetric perinephric stranding greater on the left. There is a small volume hiatal hernia. Normal small intestine. There are multiple colonic diverticula consistent with diverticulosis. The appendix is surgically absent by history. There is diffuse atherosclerotic calcification of the abdominal aorta with elongation and tortuosity, b ut without a demonstrated aneurysm. Normal inferior vena cava. Normal retroperitoneum. The urinary bladder is decompressed. There is absence of the uterus consistent with a prior hysterectomy. There i s a small umbilical hernia containing fat. There are degenerative changes in the spine. There is a degenerative anterolisthesis approximately 5 mm at L4-5. There is underlying demineralization. CT/Abdomen/Pelvis without Cont IMPRESSION: 4.8 mm mildly obstructing calculus in the distal left ureter approximately 1 cm above the ureterovesical junct ion. 9 x 5.5 mm calculus left lower pole collecting system. Otherwise chronic stable changes detailed above. Electronically Signed: Monica Faye DO at 16:24 EST Tel , Service support [phone], CC: Etta Lopez DO; Micaela Noe MD Buffet Waiter/Waitress: Signed 28-Aug-2016 Abdomen/Pelvis without Cont Result: Comments: See Note; NOTES: [facility] Imaging Services [address] [place] [address] Verdana 4d Abdomen/Pelvis without Cont MR#: [id number] Acct: [id number] Name: ZACH SCOTT Earline Rep #: [id number] : 1940 F 76 From: Monica Faye DO PCP: Etta Lopez DO Status: DEP ER Study: Abdomen/Pelvis without Cont Date of Exam: 08/28/16 Exam# [id number] Ordering Dr: Micaela Noe ADDENDUM by Monica Faye DO on 09/06/[address]/Abdomen/Pelvis without Cont 09/06/16 182 Date cc: Etta Lopez DO; Micaela Noe MD * Signed ADDENDUM by Love Faye DO on 09/06/16 at 1821 ADDENDUM ADDENDUM: Quantification right versus left kidney pathology Right kidney: There is a 1.3 x 1.0 cm parapelvic cyst with fluid density in the upper pole of the right kidney image 67 series 2 image 73 series 601 without significant change. Left kidney: There is a 9 x 5.5 mm calculus in the lower pole calyx of the left kidney. The calyx is mildly dilated. The calculus has increased from previous 3.5 mm 08/07/2012. There is mild dilatation of the upper pole calyce s. There is mild dilatation of the left ureter extending into the pelvis where there is a 4.8 mm obstructing calculus image 132, located approximately 1 cm above the ureterovesical junction. There is as ymmetric perinephric stranding greater on the left. Electronically Signed: Monica Faye DO at 18:21 EST Tel , Service support [phone], 09/06/16 1821 Date cc: Etta Lopez DO; Micaela Noe MD * Signed STUDY: CT ABDOMEN AND PELVIS WITHOUT CONTRAST REASON FOR EXAM: Female, 76 years old. Left flank pain. Antibiotic therapy for UTI started 4 days ago. Previous appendectomy, SONYA/BSO, cholecystectomy RADIATION DOSAGE (If Supplied By Facility): CTDIvol = ( 22.54 ) mGy, DLP = ( 1013.62 ) mGycm TECHNIQUE: Transaxial images were obtained fro m the dome of the diaphragm to the symphysis pubis without oral contrast, and without intravenous contrast. Sagittal and coronal images were reconstructed. Individualized dose optimization techniques w ere used for this CT. COMPARISON: 08/07/2012 FINDINGS: There are mild fibrotic changes in the lung bases which appear stable. There is mild cardiomegaly, also unchang ed. Normal liver. There are surgical clips in the gallbladder fossa consistent with a prior cholecystectomy. Normal spleen. Normal pancreas. Normal bilateral adrenal glands. There is a 1.3 x 1.0 cm p arapelvic cyst with fluid density in the upper pole of the right kidney image 67 series 2 image 73 series 601 without significant change. There is a 9 x 5.5 mm calculus in the lower pole calyx. The luis x is mildly dilated. The calculus has increased from previous 3.5 mm 08/07/2012. There is mild dilatation of the upper pole calyces. There is mild dilatation of the left ureter extending into the pelvis w here there is a 4.8 mm obstructing calculus image 132, located approximately 1 cm above the ureterovesical junction. There is asymmetric perinephric stranding greater on the left. There is a small volu me hiatal hernia. Normal small intestine. There are multiple colonic diverticula consistent with diverticulosis. The appendix is surgically absent by history. There is diffuse atherosclerotic calcifica tion of the abdominal aorta with elongation and tortuosity, but without a demonstrated aneurysm. Normal inferior vena cava. Normal retroperitoneum. The urinary bladder is decompressed. There is absence of the uterus consistent with a prior hysterectomy. There is a small umbilical hernia containing fat. There are degenerative changes in the spine. There is a degenerative anterolisthesis approximately 5 mm at L4-5. There is underlying demineralization. CT/Abdomen/Pelvis without Cont IMPRESSION: 4.8 mm mildly obstructing calculus in the distal left ureter approximately 1 cm above the ureterovesical junction. 9 x 5.5 mm calculus left lower pole collecting system. Otherwise chronic stable changes detailed above. Electronically Signed: Monica Faye DO at 16:24 EST Tel , Service support [phone], CC: Etta Lopez DO; Micaela Noe MD Buffet Waiter/Waitress: Signed 11-Aug-2016 Echocardiogram Complete Result: Comments: See Note; NOTES: [facility] Cardiovascular Services [address] [place] [place] [address] Echo Complete 08/11/16 1359 MR#: [id number] Acct: [id number] Name: YOEL SCOTT Rep #: [id number] : 1940 76 From: Cyril Robles MD Attending Dr: Wilberto Trevino Status: REG CLI Ordering Dr: Wilberto Trevino Date: 08/11/16 Location: [facility] Sex: F C Admitted: Reaso n For Study: USP use of high risk meds Procedure This was a 2D Doppler, Color Flow transthoracic echocardiogram. Exam performed in department. Left Ventricle Normal LV size. Mild concentric left ventricular hypertrophy. Left ventricular systolic function is normal. The estimated ejection fraction is 60 %. No regional wall motion abnormalities noted. Right Ventricle Normal RV size. Normal syst olic function. Atria Normal left atrium. Normal right atrium. Mitral Valve Normal mitral valve. Tricuspid Valve Normal tricuspid valve. Aortic Valve Trisinus/trileaflet aortic valve. Pulmonic Valve Normal pulmonic valve. Trivial pulmonic valve insufficiency. Great Vessels Normal aortic root. The pulmonary artery is normal size. Normal inferior vena cava. Pericardium/Pleural No pericardial effusi on. MMode/2D Measurements & Calculations LVIDd: 4.5 cm IVSd: 1.3 cm LVOT diam: 2.1 cm LVIDs: 3.0 cm LVPWd: 1.1 cm LVOT area: 3.6 cm2 RVDd: 3.2 cm FS: 32.3 % Ao root diam: 2.9 cm LAV(MOD-bp): 54.9 ml LA A4 area: 20.4 cm2 LA dimension: 4.7 cm LAV(MOD-bp) Indexed: 31.2 ml/m2 LAV(MOD-sp2): 44.6 ml LAV(MOD-sp4): 61.8 ml RA A4 area: 16.4 cm2 Doppler Measurements & Calculations MV E max kalli: 69.6 cm/sec Lat Peak E' Kalli: 5.1 cm/ sec Med Peak E' Kalli: 6.0 cm/sec MV A max kalli: 104.6 cm/sec E/E' lat: 13.6 E/E' med: 11.6 MV E/A: 0.66 Ao V2 max: 209.6 c m/sec LV V1 max: 107.8 cm/sec SV(LVOT): 95.5 ml Ao max P.6 mmHg LV V1 max P.6 mmHg Ao V2 mean: 139.6 cm/sec LV V1 mean P.5 mmHg Ao mean P.8 mmHg LV V1 mean: 75.4 cm/sec Ao V2 VTI: 48.1 cm LV V1 VTI: 26.7 cm J[place](I,D): 2.0 cm2 [place](V,D): 1.8 cm2 PA V2 max: 88.0 cm/sec Interpretation Summary Normal LV size. Mild concentric left ventricular hypertrophy. Left ventricular systolic function is normal. The estimated ejection fraction is 60 %. Structurally normal valves. Ordering Physician: Wilberto Trevino/Cyril Robles Referring Physician: Etta Lopez D.O. Performed By: Ariella Rodriguez, BEVERLY Electro nically signed by: Cyril Robles MD on 08/11/2016 05:11 PM 08/11/16 171 Date Cyril Robles MD CC: Etta Lopez DO; Wilberto Trevino Date Dictated: 02/17 1359 Date Transcribed: 08/11/161710 Buffet Waiter/Waitress: Signed 07-Jan-2016 Carotid Duplex Ultrasound Result: Comments: See Note; NOTES: [facility] Cardiovascular Services [address] [place] [address] Carotid Duplex Ultrasound 12/31/15 1101 MR#: [id number] Acct: [id number] Name: YOEL SCOTT Rep #: [id number] : 1940 75 From: Hermann Gaspar MD Attending Dr: Elena Henderson MD Status: REG CLI Ordering Dr: Elena Henderson MD Date: 12/31/15 Location: [facility] Sex: F C Admitted: Reason For Study: Vertigo Rt. Velocities/BP Lt. Velocities/BP Prox CCA 89/16 cm/sec. Prox CCA 74/15 cm/sec. Mid CCA 51/12 cm/sec. Mid CCA 89/19 cm/sec. Dist CCA 70/18 cm/sec. Di st CCA 66/18 cm/sec. Prox ICA 79/21 cm/sec. Prox ICA 69/19 cm/sec. Mid ICA 92/29 cm/sec. Mid ICA 85/32 cm/sec. Dist ICA 80/19 cm/sec. Dist ICA 105/28 cm/sec. Rt. ICA/CCA = 1.80. Lt. ICA/CCA = 1.17. Prox ECA 106/7 cm/sec. Prox ECA 75/11 cm/sec. Rt. Vert. 59/13 cm/sec. Lt. Vert. 57/18 cm/sec. Right Extracranial There is intimal thickening but no significant atherosclerotic plaque noted in the r ight common carotid artery. There is no significant atherosclerotic plaque noted in the right internal carotid artery. There is no significant atherosclerotic plaque noted in the right external castillo tid artery. Antegrade flow is noted in the right vertebral artery. There is heterogeneous, irregular atherosclerotic plaque noted in the right bulb. Left Extracranial There is no significant ather osclerotic plaque noted in the left common carotid artery. There is heterogeneous, irregular atherosclerotic plaque noted in the left internal carotid artery. There is no significant atherosclerotic plaque noted in the left external carotid artery. Antegrade flow is noted in the left vertebral artery. Procedure Carotid Duplex 53537. Exam performed in department. Interpretation Summary Mild (<50%) stenosis right extracranial internal carotid. Mild (<50%) stenosis left extracranial internal carotid. Flow within the vertebral arteries is antegrade bilaterally. Ordering Physician: Elena Henderson Referring Physician: Etta Lopez Performed By: Analia Hwang RVT 01/07/16 1125 Date Hermann Gaspar MD CC: Elena Henderson MD; Etta Lopez DO Date Dictated: 12/31/15 1101 Date Transcribed: 01/07/16 1125 Buffet Waiter/Waitress: Signed 06-Nov-2015 EKG ([id number]) Comments: see scanned document of test done to see results reviewed today with patient Result: [MEASUREMENTS ANALYSIS] Date of Test: 11/06/2015 11:27:04; Heart Rate: 54; WV Interval: 180; QRS: 102; QT Interval: 472; Corrected QT Interval (QTc): 462; P Wave [place]: 60; QRS Wave [place]: 19; T Wave [place] : 38; Blood Pressure: 142/86 [ECG DIAGNOSTIC STATEMENTS] Date of Test: 11/06/2015 11:27:04; Summary: Sinus Bradycardia - Negative precordial T-waves. WITHIN NORMAL LIMITS 29-Sep-2015 Bilat Scrn Digital AND CAD Result: Comments: See Note; NOTES: [facility] Imaging Services [address] [place] [address] Verdana 4d Bilat Scrn Digital AND CAD MR#: [id number] Acct: [id number] Name: YOEL SCOTT Rep #: [id number] : 1940 F 75 From: Elmer Sexton MD PCP: Etta Lopez DO Status: REG CLI Study: Bilat Scrn Digital AND CAD Date of Exam: 09/29/15 Exam# [id number] Pipo valladares Dr: Etta Lopez DO MAMMOGRAPHY - BILATERAL SCREENING REASON FOR EXAM: Female, 75 years old. Routine annual screening examination. PERTINENT HISTORY: Sister with breast cancer. TECHNIQUE: Di gital examination. Mediolateral oblique (MLO) and craniocaudad (CC) views of both breasts were obtained. CAD: CAD was performed on this study. COMPARISON: Comparison is made with prior study dated M 2014 and July 20, 2013. FINDINGS: Breast Composition: There are scattered areas of fibroglandular density. There are no dominant masses or suspicio us calcifications. Stable appearance of the secretory calcifications and scattered benign appearing calcifications. No other significant abnormalities are identified. There has been no significant change since the prior study. IMPRESSION: Stable bilateral screening mammogram. Yearly follow-up mammogram recommended. (A) ASSESSMENT CATEGORY: BIRADS Category 1: Negative. A letter regarding these results will be sent to the patient by the facility within 30 days. Approximately 10% of breast cancers are not detected by mammography. A normal mammogram should not delay biopsy of a clinically suspicious abnormality. [id number] Electronically Signed: Elmer Sexton MD at 9:19 EDT Tel [phone], Doris alexandra support [phone], CC: Etta Lopez DO Buffet Waiter/Waitress: Signed 05-Aug-2015 Stress Report Result: Comments: See Note; NOTES: [facility] Cardiovascular Services [address] [place] [address] Verdana 4d Stress Test Regular MR#: [id number] Acct: [id number] Name: YOEL SCOTT Rep #: [id number] : 1940 75 From: Cyril Robles MD Primary Care: Etta Lopez DO Status: REG CLI Ordering Dr: Cyril Robles MD Sex: F C DATE OF SERVICE: EXERCISE STRESS TE ST: HISTORY: Atrial fibrillation in this 75-year-old. Resting EKG demonstrates sinus bradycardia with a rate of 53 beats per minute. No mitral valves are noted. Resting blood pressure is 148/76. Th e patient exercised according to a regular Michele protocol for a total duration of 6 minutes and 30 seconds. The maximum heart rate attained was 118 beats per minute, which was 81 percent of maximum pr edicted heart rate. The maximum workload attained was 7.7 METs. The patient maintained sinus rhythm throughout the recording with no episodes of atrial fibrillation noted. At rest, there were no ST or T wave changes noted to suggest ischemia. At peak exercise, no ST or T wave changes noted to suggest ischemia. The resting blood pressure was 148/76 with a peak blood pressure of 182/. Rate pressure product was 28,500. No clinical angina was noted. No arrhythmias were noted. CONCLUSION: 1. Exercise stress test with no EKG criteria for ischemia at a moderate workload. 2. No arrhythmias noted. 3. No angina noted. 4. No atrial fibrillation noted. Cyril Robles MD T: NTS JOB: [id number] 08/05/15 1729 <Electronically signed by Cyril Robles MD> Date Cyril Robles MD CC: Cyril Robles MD; Etta Lopez DO Date Dictated: 08/04/151636 Date Transcribed: 08/04/151636 Buffet Waiter/Waitress: Signed 25-Sep-2014 Biljazmine Freeman Digital AND CAD Result: Comments: See Note; NOTES: [facility] Imaging Services [address] [place] [address] Breast Imaging Report MR#: [id number] Acct: [id number] Name: YOEL SCOTT Rep #: [id number] : 1940 F 74 From: Elmer Sexton MD PCP: Etta Lopez DO Status: REG CLI Study: Harriet Freeman Digital AND CAD Date of Exam: 09/25/14 Exam# [id number] Ordering Dr: Etta Lopez DO MAMMOGRAPHY - BILATERAL SCREENING REASON FOR EXAM: Female, 74 years old. Routine annual screening examination. PERTINENT HISTORY: Sister with breast cancer. TECHNIQUE: Digital examination. Medi olateral oblique (MLO) and craniocaudad (CC) views of both breasts were obtained. CAD: CAD was performed on this study. COMPARISON: Comparison is made with prior study dated 2013 and [facility] 2012. FINDINGS: Breast Composition: There are scattered areas of fibroglandular density. There are no dominant masses or suspicious calcifications. Sca ttered microcalcifications are seen bilaterally. These are unchanged. No other significant abnormalities are identified. There has been no significant change since the prior study. IMPRESSION: Stable bilateral screening mammogram. Yearly follow-up recommended. (A) ASSESSMENT CATEGORY: BIRADS Category 2: Benign. A lette r regarding these results will be sent to the patient by the facility within 30 days. Approximately 10% of breast cancers are not detected by mammography. A normal mammogram should not delay biopsy of a clinically suspicious abnormality. Electronically Signed: Elmer Sexton MD at 12:41 EDT Tel [phone], Service support [phone], CC: Etta Lopez DO Buffet Waiter/Waitress: Signed 25-Sep-2014 Dexa Bone Density Study (HP) Result: Comments: See Note; NOTES: [facility] Imaging Services [address] [place] [address] Bone Density Report MR#: [id number] Acct: [id number] Name: YOEL SCOTT Rep #: [id number] : 1940 F 74 From: Elmer Sexton MD PCP: Etta Lopez DO Status: REG CLI Study: Dexa Bone Density Study (HP) Date of Exam: 09/25/14 Exam# [id number] Ordering Dr: Etta Lopez DO STUDY: DUAL ENERGY X-RAY ABSORPTIOMETRY / DXA REASON FOR EXAM: Female, 74 years old. Osteopenia. TECHNIQUE: Bone Mineral Density (BMD) measurements of lumbar spine and bilateral hips were obtaine d. COMPARISON: Comparison is made with prior study dated March 25, 2010. FINDINGS: Lumbar Spine (L1-L4): g/cm2 (1.220) / T-score (0.2) / Z-score (1.9) Fin dings are suggestive of normal bone density with a low fracture risk. Left Femur Total: g/cm2 (0.977) / T-score (-0.2) / Z-score (1.4) Left Femoral Neck: g/cm2 (0.820) / T-score (-1.6) / Z-score (0.3 ) Right Femur Total: g/cm2 (0.931) / T-score (-0.6) / Z-score (1.1) Right Femoral Neck: g/cm2 (0.845) / T-score (-1.4) / Z-score (0.5) The T-Scores on the most recent prior examination were: Lumba r Spine (L1-L4): There has been worsening of bone density since the previous examination. Left Femur Total: which represents an improvement of 1.5%. Right Femur Total: which represents a worsening o f 2.0%. IMPRESSION: The patient is considered osteopenic at the level of the femoral neck as outlined below according to World Loyd Organization (WHO) criteria with a moderate fracture risk. There has been worsening of bone density since the previous examination. Reference Information: The T-score is the number of sta ndard deviations above or below the standard which is normal for young adults at their peak bone mineral density. The World Health Organization (WHO) interprets the T-scores as follows: Above -1 No rmal bone density Between -1 and -2.5 Osteopenia Equal to / or below -2.5 Osteoporosis As a practical clinical guideline, osteopenia may be graded as follows: Mild -1 through -1.5 Moderate -1.6 th rough -2.0 Severe -2.1 through -2.4 The Z-score is the number of standard deviations above or below age-matched controls. A Z-score of less than -1.5 would be considered abnormal. References: 1. NIH Osteoporosis and Related Bone Diseases http://www.osteo.org 2. International Society for Clinical Densitometry http://www.iscd.org 3. National Osteoporosis Foundation http://www.nof.org Blanca jimenez Signed: Elmer Sexton MD at 13:04 EDT Tel [phone], Service support [phone], CC: Etta Lopez DO Buffet Waiter/Waitress: Signed 06-Dec-2013 Echocardiogram Complete Result: Comments: See Note; NOTES: [facility] Cardiovascular Services [address] [place] [address] Echo Complete 12/06/13 0946 MR#: [id number] Acct: [id number] Name: TOYIN SCOTT Rep #: [id number] : 1940 73 From: Cyril Robles MD Attending Dr: Shey BARRIGA, Status: REG CLI Ordering Dr: Cyril Robles MD Date: 12/06/13 Location: [facility] Sex: F C Admitted: [facility] This was a 2D Doppler, Color Flow transthoracic echocardiogram. Exam performed in department. Left Ventricle Normal LV size. The estimated ejection fraction is 60 %. No regional wall motion ab normalities noted. Right Ventricle Normal RV size. Normal systolic function. Atria Normal left atrium. Normal right atrium. Mitral Valve Normal mitral valve. Tricuspid Valve Normal tricuspi d valve. Mild (1+) tricuspid valve insufficiency. Pulmonary artery systolic pressure is 34 mmHg. Aortic Valve Normal aortic valve. Trisinus/trileaflet aortic valve. Pulmonic Valve Normal pulmoni c valve. Great Vessels Normal aortic root. The pulmonary artery is normal size. Normal inferior vena cava. Pericardium/Pleural No pericardial effusion. LVIDd: 4.0 cm IVSd: 1.3 cm Ao root diam: 3.2 cm LAV(MOD-bp): 53.2 ml LVIDs: 2.5 cm LVPWd: 1.1 cm Ao root area: 8.2 cm2 LAV(MOD-bp) Indexed: 30.1 ml/m2 RVDd: 2.7 cm FS: 37.7 % LA dimension: 3.7 cm LAV(MOD-sp2): 49.7 ml LAV(MOD-sp4): 51.8 ml LA A4 area: 19.4 cm2 RA A4 area: 15.3 cm2 MV E max kalli: 83.1 cm/secLat Peak E' Kalli: Med Peak E' Kalli: Ao V2 ma x: MV A max kalli: 8.3 cm/sec 8.7 cm/sec 180.7 cm/sec 109.0 cm/sec Ao max P.1 mmHg MV E/A: 0.76 LV V1 max: 1 06.6 cm/sec PA V2 max: 119.4 cm/sec TR max kalli: 276.5 cm/sec E /E' lat: 10.0 LV V1 max P.5 mmHg PA max P.7 mmHg TR max P.6 mmHg E/E' med: 9.5 Interpretation Summary Normal LV size. The estimated ejection fraction is 60 %. No regional wall motion abnormalities noted. Trisinus/trileaflet aortic valv e. Structurally normal valves. Ordering Physician: Cryil Robles Referring Physician: Blas D.O. Performed By: Analia Hwang RVT : Cyril Robles MD; Etta Fast DO Date Dictated: 12/06/13 0946 Date Transcribed: 12/06/13 1237 Buffet Waiter/Waitress: Signed 20-Aug-2013 Ankle min 3 Views Result: Comments: See Note; NOTES: [facility] Imaging Services [address] [place] [address] Radiology Report MR#: [id number] Acct: [id number] Name: YOEL SCOTT Rep #: [id number] : 1940 F 73 From: Elmer Sexton MD PCP: Status: REG CLI Study: Ankle min 3 Views Date of Exam: 08/20/13 Exam# [id number] Ordering Dr: Etta Lopez DO STUDY: X-RAY - RIGHT ANKLE REASON FOR EXAM: Female, 73 years old. Medial ankle swelling. TECHNIQUE: 3 views of the ankle. COMPARISON: None. FINDINGS: Normal visualized distal tibia a nd fibula. Normal medial and lateral malleoli. Normal tibiotalar articulation and ankle mortise. Degenerative spur at the insertion of the Achilles tendon. Tiny plantar spur. Small calcifications in the subcutaneous tissues posteriorly. The visualized subtalar, talonavicular, calcaneocuboid and tarsal articulations are normal. IMPRESSION: Plantar spur and a spur is seen at the insertion of the Achilles tendon. Electronically Signed: Elmer Sexton M.D. at 16:03 EST , Service support [phone], CC: Etta Lopez DO Buffet Waiter/Waitress: Signed 20-Jul-2013 [employer] CAD Result: Comments: See Note; NOTES: [facility] Services [address] [place] [address] Breast Imaging Report MR#: [id number] Acct: [id number] Name: ZACH SCOTTA Earline Rep #: [id number] : 1940 F 73 From: Elmer Sexton MD PCP: Status: [facility] Exam# [id number] Ordering Dr: Etta Lopez DO MAMMOGRAPHY - BILATERAL SCREENING REASON FOR EXAM: Female, 73 years old. Routine annual screening examination. PERTINENT HISTORY: Sister with breast cancer. TECHNIQUE: Digital examination. Mediolateral oblique (MLO) and craniocaudad (CC) views of both breasts wer e obtained. CAD: CAD was performed on this study. COMPARISON: Comparison is made with prior study dated July 05, 2012 and June 18, 2011. FINDINGS: The b reast composition is composed of scattered fibroglandular tissues ranging from 25% to 50% of the breast. There are no dominant masses or suspicious calcifications. Scattered microcalcifications are seen bilaterally. No other significant abnormalities are identified. There has been no significant change since the prior study. IMPRESSION: Stable bilateral s creening mammogram. Yearly follow-up recommended. (A) ASSESSMENT CATEGORY: BIRADS Category 2: Benign finding(s). A letter regarding these results will be sent to the patient by the facility within 30 days. Approximately 10% of breast cancers are not detected by mammography. A normal mammogram should not delay biopsy of a clinically suspicious abnormality. Electronically Signed: Elmer Sexton M.D. 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 Immunization Name Dates Details Influenza (3 years and up) on: 21-Apr-2009 Comments: Lot #:[id number] date:mount given:0.5mlRoute: IMSite given:left deltGiven by: BEAR Edmond Family History Unknown Family Member Name Dates Details Brother 1 Comments: living heart issues and digestive issues Status: Active Brother 2 Comments: living and good health Status: Active Father Comments: High Blood Pressure, [place] x 2, Smoker, age 55 - his father CA at 40 Status: Active Mother Comments: CHF age 87 - Rheumataic fever with valve problem Status: Active Mother's Sister: Kidney Disease, Thyroid Goiter Status: Active sister - strangled in detention by roomate- alzheimers Status: Active Sister 1 Comments: living 75- breast cancer Status: Active Social History Name Dates Details Alcohol Use Comments: Occasional alcohol use Status: Active Caffeine Use Comments: 1 Glass a day Status: Active Non Smoker/No Tobacco Use Status: Active Tobacco use: Never smoker. Status: Active Smoking Status Name Dates Details Never smoker Vital Signs Date Test Result Details :41 Temperature 97.1 f Comments: Method: Temporal Pulse 56 /min Comments: Pattern: Regular Respiration Rate 16 /min Comments: Pattern: Unlabored BP Systolic 124 mm[Hg] Comments: Patient Position: Sitting; Cuff Location: Left Arm; Cuff Size: Standard BP Diastolic 68 mm[Hg] Comments: Patient Position: Sitting; Cuff Location: Left Arm; Cuff Size: Standard Weight 185 lb Height 60 in Body Mass Index Calculated 36.13 kg/m2 Body Surface Area Calculated 1.81 m2 [id number] Temperature 97.3 f Comments: Method: Temporal Pulse 62 /min Comments: Pattern: Regular Respiration Rate 16 /min Comments: Pattern: Unlabored BP Systolic 120 mm[Hg] Comments: Patient Position: Sitting; Cuff Location: Left Arm; Cuff Size: Standard BP Diastolic 68 mm[Hg] Comments: Patient Position: Sitting; Cuff Location: Left Arm; Cuff Size: Standard Weight 185 lb Height 60 in Body Mass Index Calculated 36.13 kg/m2 Body Surface Area Calculated 1.81 m2 :16 Temperature 96.8 f Comments: Method: Temporal Pulse 55 /min Comments: Pattern: Regular Respiration Rate 16 /min Comments: Pattern: Unlabored BP Systolic 118 mm[Hg] Comments: Patient Position: Sitting; Cuff Location: Left Arm; Cuff Size: Standard BP Diastolic 62 mm[Hg] Comments: Patient Position: Sitting; Cuff Location: Left Arm; Cuff Size: Standard Weight 178 lb Height 60 in Body Mass Index Calculated 34.76 kg/m2 Body Surface Area Calculated 1.78 m2 :29 Temperature 96.6 f Comments: Method: Temporal Pulse 54 /min Comments: Pattern: Regular Respiration Rate 16 /min Comments: Pattern: Unlabored BP Systolic 144 mm[Hg] Comments: Patient Position: Sitting; Cuff Location: Left Arm; Cuff Size: Standard BP Diastolic 68 mm[Hg] Comments: Patient Position: Sitting; Cuff Location: Left Arm; Cuff Size: Standard Weight 180 lb Height 60 in Body Mass Index Calculated 35.15 kg/m2 Body Surface Area Calculated 1.78 m2 :28 Temperature 96.2 f Comments: Method: Temporal Pulse 56 /min Comments: Pattern: Regular Respiration Rate 16 /min Comments: Pattern: Unlabored O2 SAT 98 % Comments: Room air BP Systolic 162 mm[Hg] Comments: Patient Position: Sitting; Cuff Location: Left Arm; Cuff Size: Standard BP Diastolic 80 mm[Hg] Comments: Patient Position: Sitting; Cuff Location: Left Arm; Cuff Size: Standard Weight 182 lb Height 60 in Body Mass Index Calculated 35.54 kg/m2 Body Surface Area Calculated 1.79 m2 :19 Temperature 97.6 f Comments: Method: Oral Pulse 60 /min Comments: Pattern: Regular Respiration Rate 16 /min BP Systolic 140 mm[Hg] Comments: Patient Position: Sitting BP Diastolic 62 mm[Hg] Comments: Patient Position: Sitting :55 Temperature 97 f Comments: Method: Oral Pulse 62 /min Comments: Pattern: Regular Respiration Rate 18 /min Comments: Pattern: Unlabored O2 SAT 95 % Comments: Room air BP Systolic 122 mm[Hg] Comments: Patient Position: Sitting; Cuff Location: Left Arm; Cuff Size: Standard BP Diastolic 78 mm[Hg] Comments: Patient Position: Sitting; Cuff Location: Left Arm; Cuff Size: Standard Weight 183.125 lb Height 60 in Body Mass Index Calculated 35.76 kg/m2 Body Surface Area Calculated 1.8 m2 :42 Temperature 98.2 f Pulse 59 /min Comments: Pattern: Regular Respiration Rate 16 /min Comments: Pattern: Unlabored O2 SAT 98 % Comments: Room air BP Systolic 124 mm[Hg] Comments: Patient Position: Sitting; Cuff Location: Left Arm; Cuff Size: Standard BP Diastolic 82 mm[Hg] Comments: Patient Position: Sitting; Cuff Location: Left Arm; Cuff Size: Standard Weight 187.125 lb Height 60 in Body Mass Index Calculated 36.54 kg/m2 Body Surface Area Calculated 1.81 m2 [id number]:59 Temperature 96.4 f Comments: Method: Temporal Pulse 60 /min Comments: Pattern: Regular Respiration Rate 16 /min Comments: Pattern: Unlabored O2 SAT 97 % Comments: Room air BP Systolic 152 mm[Hg] Comments: Patient Position: Sitting; Cuff Location: Left Arm; Cuff Size: Large BP Diastolic 82 mm[Hg] Comments: Patient Position: Sitting; Cuff Location: Left Arm; Cuff Size: Large Weight 184 lb Height 60 in Body Mass Index Calculated 35.93 kg/m2 Body Surface Area Calculated 1.8 m2 :43 Temperature 96 f Comments: Method: Temporal Pulse 56 /min Comments: Pattern: Regular Respiration Rate 15 /min Comments: Pattern: Unlabored O2 SAT 97 % Comments: Room air BP Systolic 140 mm[Hg] Comments: Patient Position: Sitting; Cuff Location: Left Arm; Cuff Size: Large BP Diastolic 72 mm[Hg] Comments: Patient Position: Sitting; Cuff Location: Left Arm; Cuff Size: Large Weight 182 lb Height 60 in Body Mass Index Calculated 35.54 kg/m2 Body Surface Area Calculated 1.79 m2 :25 Temperature 96.6 f Comments: Method: Temporal Pulse 58 /min Comments: Pattern: Regular Respiration Rate 15 /min Comments: Pattern: Unlabored O2 SAT 96 % Comments: Room air BP Systolic 140 mm[Hg] Comments: Patient Position: Sitting; Cuff Location: Left Arm; Cuff Size: Large BP Diastolic 72 mm[Hg] Comments: Patient Position: Sitting; Cuff Location: Left Arm; Cuff Size: Large Weight 183 lb Height 60 in Body Mass Index Calculated 35.74 kg/m2 Body Surface Area Calculated 1.8 m2 :10 Pulse 64 /min Comments: Pattern: Regular BP Systolic 142 mm[Hg] Comments: Patient Position: Standing; Cuff Location: Left Arm; Cuff Size: Standard BP Diastolic 86 mm[Hg] Comments: Patient Position: Standing; Cuff Location: Left Arm; Cuff Size: Standard :10 Pulse 62 /min Comments: Pattern: Regular BP Systolic 124 mm[Hg] Comments: Patient Position: Sitting; Cuff Location: Left Arm; Cuff Size: Large BP Diastolic 90 mm[Hg] Comments: Patient Position: Sitting; Cuff Location: Left Arm; Cuff Size: Large :08 Temperature 97.5 f Comments: Method: Temporal Pulse 60 /min Comments: Pattern: Regular Respiration Rate 18 /min Comments: Pattern: Unlabored O2 SAT 97 % Comments: Room air BP Systolic 160 mm[Hg] Comments: Patient Position: Supine; Cuff Location: Left Arm; Cuff Size: Large BP Diastolic 100 mm[Hg] Comments: Patient Position: Supine; Cuff Location: Left Arm; Cuff Size: Large Weight 180 lb Height 60 in Body Mass Index Calculated 35.15 kg/m2 Body Surface Area Calculated 1.78 m2 :00 Temperature 97.8 f Comments: Method: Oral Pulse 56 /min Comments: Pattern: Regular Respiration Rate 16 /min Comments: Pattern: Unlabored BP Systolic 122 mm[Hg] Comments: Patient Position: Sitting; Cuff Location: Left Arm; Cuff Size: Standard BP Diastolic 68 mm[Hg] Comments: Patient Position: Sitting; Cuff Location: Left Arm; Cuff Size: Standard Weight 180 lb Height 60 in Body Mass Index Calculated 35.15 kg/m2 Body Surface Area Calculated 1.78 m2 : Temperature 96.6 f Comments: Method: Temporal Pulse 56 /min Comments: Pattern: Regular Respiration Rate 16 /min Comments: Pattern: Unlabored O2 SAT 97 % Comments: Room air BP Systolic 120 mm[Hg] Comments: Patient Position: Sitting; Cuff Location: Left Arm; Cuff Size: Large BP Diastolic 78 mm[Hg] Comments: Patient Position: Sitting; Cuff Location: Left Arm; Cuff Size: Large Weight 178 lb Height 60 in Body Mass Index Calculated 34.76 kg/m2 Body Surface Area Calculated 1.78 m2 :37 Temperature 97.4 f Comments: Method: Oral Pulse 69 /min Comments: Pattern: Regular Respiration Rate 16 /min Comments: Pattern: Unlabored BP Systolic 154 mm[Hg] Comments: Patient Position: Sitting; Cuff Location: Left Arm; Cuff Size: Large BP Diastolic 72 mm[Hg] Comments: Patient Position: Sitting; Cuff Location: Left Arm; Cuff Size: Large Weight 183 lb Height 60 in Body Mass Index Calculated 35.74 kg/m2 Body Surface Area Calculated 1.8 m2 :29 Temperature 97 f Comments: Method: Oral Pulse 64 /min Comments: Pattern: Regular Respiration Rate 18 /min Comments: Pattern: Unlabored O2 SAT 96 % Comments: Room air BP Systolic 160 mm[Hg] Comments: Patient Position: Sitting; Cuff Location: Left Arm; Cuff Size: Standard BP Diastolic 82 mm[Hg] Comments: Patient Position: Sitting; Cuff Location: Left Arm; Cuff Size: Standard Weight 183.125 lb Height 60 in Body Mass Index Calculated 35.76 kg/m2 Body Surface Area Calculated 1.8 m2 :01 Temperature 98.2 f Pulse 64 /min Comments: Pattern: Regular Respiration Rate 18 /min Comments: Pattern: Unlabored O2 SAT 97 % Comments: Room air BP Systolic 142 mm[Hg] Comments: Patient Position: Sitting; Cuff Location: Left Arm; Cuff Size: Standard BP Diastolic 82 mm[Hg] Comments: Patient Position: Sitting; Cuff Location: Left Arm; Cuff Size: Standard Weight 182.125 lb Height 60 in Body Mass Index Calculated 35.57 kg/m2 Body Surface Area Calculated 1.79 m2 :03 Temperature 98 f Pulse 60 /min Comments: Pattern: Regular Respiration Rate 16 /min Comments: Pattern: Unlabored BP Systolic 152 mm[Hg] Comments: Patient Position: Sitting; Cuff Location: Left Arm; Cuff Size: Large BP Diastolic 84 mm[Hg] Comments: Patient Position: Sitting; Cuff Location: Left Arm; Cuff Size: Large Weight 184 lb Height 60 in Body Mass Index Calculated 35.93 kg/m2 Body Surface Area Calculated 1.8 m2 :07 Temperature 98.4 f Pulse 52 /min Comments: Pattern: Regular Respiration Rate 16 /min Comments: Pattern: Unlabored BP Systolic 124 mm[Hg] Comments: Patient Position: Sitting; Cuff Location: Left Arm; Cuff Size: Large BP Diastolic 86 mm[Hg] Comments: Patient Position: Sitting; Cuff Location: Left Arm; Cuff Size: Large Weight 182 lb Height 60 in Body Mass Index Calculated 35.54 kg/m2 Body Surface Area Calculated 1.79 m2 :57 Temperature 97.6 f Comments: Method: Temporal Pulse 58 /min Comments: Pattern: Regular Respiration Rate 16 /min Comments: Pattern: Unlabored O2 SAT 97 % Comments: Room air BP Systolic 120 mm[Hg] Comments: Patient Position: Sitting; Cuff Location: Left Arm; Cuff Size: Standard BP Diastolic 76 mm[Hg] Comments: Patient Position: Sitting; Cuff Location: Left Arm; Cuff Size: Standard Weight 184.4 lb Height 60 in Body Mass Index Calculated 36.01 kg/m2 Body Surface Area Calculated 1.8 m2 :28 Temperature 98.9 f Pulse 60 /min Comments: Pattern: Regular Respiration Rate 18 /min Comments: Pattern: Unlabored BP Systolic 126 mm[Hg] Comments: Patient Position: Sitting; Cuff Location: Left Arm; Cuff Size: Large BP Diastolic 74 mm[Hg] Comments: Patient Position: Sitting; Cuff Location: Left Arm; Cuff Size: Large Weight 182 lb Height 60 in Body Mass Index Calculated 35.54 kg/m2 Body Surface Area Calculated 1.79 m2 :25 Temperature 98.6 f Pulse 56 /min Comments: Pattern: Regular Respiration Rate 16 /min Comments: Pattern: Unlabored BP Systolic 134 mm[Hg] Comments: Patient Position: Sitting; Cuff Location: Left Arm; Cuff Size: Large BP Diastolic 74 mm[Hg] Comments: Patient Position: Sitting; Cuff Location: Left Arm; Cuff Size: Large Weight 184 lb Height 60 in Body Mass Index Calculated 35.93 kg/m2 Body Surface Area Calculated 1.8 m2 :54 Temperature 98.2 f Pulse 60 /min Comments: Pattern: Regular Respiration Rate 16 /min Comments: Pattern: Unlabored BP Systolic 110 mm[Hg] Comments: Patient Position: Sitting; Cuff Location: Left Arm; Cuff Size: Large BP Diastolic 70 mm[Hg] Comments: Patient Position: Sitting; Cuff Location: Left Arm; Cuff Size: Large Weight 183 lb Height 60 in Body Mass Index Calculated 35.74 kg/m2 Body Surface Area Calculated 1.8 m2 :35 Temperature 98.8 f Comments: Method: Oral Pulse 66 /min Comments: Pattern: Regular Respiration Rate 16 /min BP Systolic 130 mm[Hg] Comments: Patient Position: Sitting; Cuff Location: Left Arm; Cuff Size: Standard BP Diastolic 80 mm[Hg] Comments: Patient Position: Sitting; Cuff Location: Left Arm; Cuff Size: Standard Weight 184 lb Height 60 in Body Mass Index Calculated 35.93 kg/m2 Body Surface Area Calculated 1.8 m2 :13 Temperature 97.1 f Pulse 52 /min Comments: Pattern: Regular Respiration Rate 16 /min Comments: Pattern: Unlabored BP Systolic 134 mm[Hg] Comments: Patient Position: Sitting; Cuff Location: Left Arm; Cuff Size: Large BP Diastolic 76 mm[Hg] Comments: Patient Position: Sitting; Cuff Location: Left Arm; Cuff Size: Large Weight 184 lb Height 60 in Body Mass Index Calculated 35.93 kg/m2 Body Surface Area Calculated 1.8 m2 :40 Temperature 98.3 f Comments: Method: Oral Pulse 62 /min Comments: Pattern: Regular Respiration Rate 16 /min Comments: Pattern: Unlabored BP Systolic 142 mm[Hg] Comments: Patient Position: Sitting; Cuff Location: Left Arm; Cuff Size: Standard BP Diastolic 78 mm[Hg] Comments: Patient Position: Sitting; Cuff Location: Left Arm; Cuff Size: Standard Weight 183.1 lb Height 60 in Body Mass Index Calculated 35.76 kg/m2 Body Surface Area Calculated 1.8 m2 :23 Temperature 98.8 f Comments: Method: Oral Pulse 72 /min Comments: Pattern: Regular Respiration Rate 16 /min Comments: Pattern: Unlabored BP Systolic 124 mm[Hg] Comments: Patient Position: Sitting; Cuff Location: Left Arm; Cuff Size: Standard BP Diastolic 72 mm[Hg] Comments: Patient Position: Sitting; Cuff Location: Left Arm; Cuff Size: Standard Weight 183.1 lb Height 60 in Body Mass Index Calculated 35.76 kg/m2 Body Surface Area Calculated 1.8 m2 :22 Temperature 97.5 f Comments: Method: Oral Pulse 62 /min Comments: Pattern: Regular Respiration Rate 16 /min Comments: Pattern: Unlabored O2 SAT 97 % Comments: Room air BP Systolic 128 mm[Hg] Comments: Patient Position: Sitting; Cuff Location: Left Arm; Cuff Size: Standard BP Diastolic 76 mm[Hg] Comments: Patient Position: Sitting; Cuff Location: Left Arm; Cuff Size: Standard Weight 184.3 lb Height 60 in Body Mass Index Calculated 35.99 kg/m2 Body Surface Area Calculated 1.8 m2 :46 Temperature 97.6 f Comments: Method: Oral Pulse 66 /min Comments: Pattern: Regular Respiration Rate 16 /min Comments: Pattern: Unlabored O2 SAT 96 % Comments: Room air BP Systolic 128 mm[Hg] Comments: Patient Position: Sitting; Cuff Location: Left Arm; Cuff Size: Standard BP Diastolic 80 mm[Hg] Comments: Patient Position: Sitting; Cuff Location: Left Arm; Cuff Size: Standard Weight 183 lb Height 60 in Body Mass Index Calculated 35.74 kg/m2 Body Surface Area Calculated 1.8 m2 :30 Temperature 98.6 f Comments: Method: Oral Pulse 74 /min Comments: Pattern: Regular O2 SAT 96 % Comments: Room air BP Systolic 140 mm[Hg] Comments: Patient Position: Sitting; Cuff Location: Left Arm; Cuff Size: Standard BP Diastolic 70 mm[Hg] Comments: Patient Position: Sitting; Cuff Location: Left Arm; Cuff Size: Standard Weight 183 lb Height 60 in Body Mass Index Calculated 35.74 kg/m2 Body Surface Area Calculated 1.8 m2 :13 Temperature 97 f Comments: Method: Oral Pulse 56 /min Comments: Pattern: Regular Respiration Rate 16 /min Comments: Pattern: Unlabored BP Systolic 130 mm[Hg] Comments: Patient Position: Sitting; Cuff Location: Left Arm; Cuff Size: Large BP Diastolic 60 mm[Hg] Comments: Patient Position: Sitting; Cuff Location: Left Arm; Cuff Size: Large Weight 183 lb Height 60 in Body Mass Index Calculated 35.74 kg/m2 Body Surface Area Calculated 1.8 m2 :02 Temperature 97.8 f Pulse 52 /min Comments: Pattern: Regular Respiration Rate 16 /min Comments: Pattern: Unlabored BP Systolic 158 mm[Hg] Comments: Patient Position: Sitting; Cuff Location: Left Arm; Cuff Size: Large BP Diastolic 64 mm[Hg] Comments: Patient Position: Sitting; Cuff Location: Left Arm; Cuff Size: Large Weight 183 lb Height 60 in Body Mass Index Calculated 35.74 kg/m2 Body Surface Area Calculated 1.8 m2 :00 Temperature 99.4 f Comments: Method: Oral Pulse 68 /min Comments: Pattern: Regular Respiration Rate 16 /min Comments: Pattern: Unlabored BP Systolic 128 mm[Hg] Comments: Patient Position: Sitting; Cuff Location: Left Arm; Cuff Size: Standard BP Diastolic 72 mm[Hg] Comments: Patient Position: Sitting; Cuff Location: Left Arm; Cuff Size: Standard Weight 183 lb Height 60 in Body Mass Index Calculated 35.74 kg/m2 Body Surface Area Calculated 1.8 m2 :11 Temperature 98.1 f Comments: Method: Oral Pulse 64 /min Comments: Pattern: Regular Respiration Rate 16 /min Comments: Pattern: Unlabored BP Systolic 140 mm[Hg] Comments: Patient Position: Sitting; Cuff Location: Left Arm; Cuff Size: Large BP Diastolic 70 mm[Hg] Comments: Patient Position: Sitting; Cuff Location: Left Arm; Cuff Size: Large Weight 183 lb Height 60 in Body Mass Index Calculated 35.74 kg/m2 Body Surface Area Calculated 1.8 m2 :18 Temperature 97.1 f Comments: Method: Oral Pulse 58 /min Comments: Pattern: Regular Respiration Rate 16 /min Comments: Pattern: Unlabored BP Systolic 114 mm[Hg] Comments: Patient Position: Sitting; Cuff Location: Left Arm; Cuff Size: Standard BP Diastolic 60 mm[Hg] Comments: Patient Position: Sitting; Cuff Location: Left Arm; Cuff Size: Standard Weight 184.9 lb Height 60 in Body Mass Index Calculated 36.11 kg/m2 Body Surface Area Calculated 1.81 m2 [id number]:15 Temperature 97.1 f Pulse 52 /min Comments: Pattern: Regular Respiration Rate 16 /min Comments: Pattern: Unlabored BP Systolic 142 mm[Hg] Comments: Patient Position: Sitting; Cuff Location: Left Arm; Cuff Size: Large BP Diastolic 76 mm[Hg] Comments: Patient Position: Sitting; Cuff Location: Left Arm; Cuff Size: Large Weight 182 lb Height 60 in Body Mass Index Calculated 35.54 kg/m2 Body Surface Area Calculated 1.79 m2 :56 Temperature 97.8 f Pulse 88 /min Comments: Pattern: Regular Respiration Rate 18 /min Comments: Pattern: Unlabored BP Systolic 148 mm[Hg] Comments: Patient Position: Standing; Cuff Location: Left Arm; Cuff Size: Large BP Diastolic 70 mm[Hg] Comments: Patient Position: Standing; Cuff Location: Left Arm; Cuff Size: Large Weight 183 lb :59 Temperature 96.9 f Pulse 56 /min Comments: Pattern: Regular Respiration Rate 18 /min Comments: Pattern: Unlabored BP Systolic 124 mm[Hg] Comments: Patient Position: Sitting; Cuff Location: Left Arm; Cuff Size: Large BP Diastolic 72 mm[Hg] Comments: Patient Position: Sitting; Cuff Location: Left Arm; Cuff Size: Large Weight 183 lb [id number]:00 Temperature 97.4 f Comments: Method: Oral Pulse 72 /min Comments: Pattern: Regular Respiration Rate 17 /min Comments: Pattern: Unlabored BP Systolic 144 mm[Hg] Comments: Patient Position: Sitting; Cuff Location: Left Arm; Cuff Size: Standard BP Diastolic 80 mm[Hg] Comments: Patient Position: Sitting; Cuff Location: Left Arm; Cuff Size: Standard Weight 189 lb :31 Temperature 98.2 f Pulse 82 /min Comments: Pattern: Regular Respiration Rate 18 /min Comments: Pattern: Unlabored BP Systolic 132 mm[Hg] Comments: Patient Position: Sitting; Cuff Location: Left Arm; Cuff Size: Large BP Diastolic 62 mm[Hg] Comments: Patient Position: Sitting; Cuff Location: Left Arm; Cuff Size: Large :09 Pulse 74 /min Comments: Pattern: Regular Respiration Rate 18 /min Comments: Pattern: Unlabored BP Systolic 130 mm[Hg] Comments: Patient Position: Sitting; Cuff Location: Left Arm; Cuff Size: Standard BP Diastolic 76 mm[Hg] Comments: Patient Position: Sitting; Cuff Location: Left Arm; Cuff Size: Standard Weight 189 lb :10 Temperature 98.9 f Pulse 62 /min Comments: Pattern: Regular Respiration Rate 18 /min Comments: Pattern: Unlabored BP Systolic 126 mm[Hg] Comments: Patient Position: Sitting; Cuff Location: Left Arm; Cuff Size: Large BP Diastolic 84 mm[Hg] Comments: Patient Position: Sitting; Cuff Location: Left Arm; Cuff Size: Large Weight 195 lb :38 Temperature 97.7 f Comments: Method: Undefined Pulse 76 /min Comments: Pattern: Regular Respiration Rate 18 /min Comments: Pattern: Undefined BP Systolic 150 mm[Hg] Comments: Patient Position: Sitting; Cuff Location: Right Arm; Cuff Size: Standard BP Diastolic 80 mm[Hg] Comments: Patient Position: Sitting; Cuff Location: Right Arm; Cuff Size: Standard Weight 201 lb Height 0 in Head Circumference 0.00 cm :24 Temperature 96.7 f Comments: Method: Undefined Pulse 72 /min Comments: Pattern: Regular Respiration Rate 18 /min Comments: Pattern: Undefined BP Systolic 164 mm[Hg] Comments: Patient Position: Sitting; Cuff Location: Right Arm; Cuff Size: Standard BP Diastolic 86 mm[Hg] Comments: Patient Position: Sitting; Cuff Location: Right Arm; Cuff Size: Standard Weight 209 lb Height 0 in Head Circumference 0.00 cm :11 Temperature 98.1 f Comments: Method: Undefined Pulse 72 /min Comments: Pattern: Regular Respiration Rate 18 /min Comments: Pattern: Undefined BP Systolic 156 mm[Hg] Comments: Patient Position: Sitting; Cuff Location: Left Arm; Cuff Size: Standard BP Diastolic 80 mm[Hg] Comments: Patient Position: Sitting; Cuff Location: Left Arm; Cuff Size: Standard Weight 214 lb Height 0 in Head Circumference 0.00 cm :47 Temperature 96.6 f Comments: Method: Undefined Pulse 80 /min Comments: Pattern: Regular Respiration Rate 18 /min Comments: Pattern: Labored O2 SAT 97 % Comments: Room air BP Systolic 150 mm[Hg] Comments: Patient Position: Supine; Cuff Location: Left Arm; Cuff Size: Large BP Diastolic 72 mm[Hg] Comments: Patient Position: Supine; Cuff Location: Left Arm; Cuff Size: Large Weight 217 lb Height 59.5 in Body Mass Index Calculated 43.09 kg/m2 Body Surface Area Calculated 1.92 m2 Head Circumference 0.00 cm :10 Temperature 96 f Comments: Method: Undefined Pulse 64 /min Comments: Pattern: Regular Respiration Rate 18 /min Comments: Pattern: Undefined BP Systolic 152 mm[Hg] Comments: Patient Position: Standing; Cuff Location: Right Arm; Cuff Size: Large BP Diastolic 76 mm[Hg] Comments: Patient Position: Standing; Cuff Location: Right Arm; Cuff Size: Large Weight 205 lb Height 0 in Head Circumference 0.00 cm :43 Temperature 97.5 f Comments: Method: Undefined Pulse 72 /min Comments: Pattern: Regular Respiration Rate 18 /min Comments: Pattern: Undefined BP Systolic 156 mm[Hg] Comments: Patient Position: Sitting; Cuff Location: Right Arm; Cuff Size: Large BP Diastolic 80 mm[Hg] Comments: Patient Position: Sitting; Cuff Location: Right Arm; Cuff Size: Large Weight 211 lb Height 0 in Head Circumference 0.00 cm :24 Temperature 98 f Comments: Method: Undefined Pulse 64 /min Comments: Pattern: Regular Respiration Rate 18 /min Comments: Pattern: Undefined BP Systolic 148 mm[Hg] Comments: Patient Position: Sitting; Cuff Location: Right Arm; Cuff Size: Large BP Diastolic 86 mm[Hg] Comments: Patient Position: Sitting; Cuff Location: Right Arm; Cuff Size: Large Weight 212 lb Height 59.5 in Body Mass Index Calculated 42.1 kg/m2 Body Surface Area Calculated 1.9 m2 Head Circumference 0.00 cm :06 Temperature 97.5 f Comments: Method: Undefined Pulse 84 /min Comments: Pattern: Regular Respiration Rate 16 /min Comments: Pattern: Undefined BP Systolic 146 mm[Hg] Comments: Patient Position: Sitting; Cuff Location: Left Arm; Cuff Size: Large BP Diastolic 84 mm[Hg] Comments: Patient Position: Sitting; Cuff Location: Left Arm; Cuff Size: Large Weight 210 lb Height 59.5 in Body Mass Index Calculated 41.7 kg/m2 Body Surface Area Calculated 1.89 m2 Head Circumference 0.00 cm :52 Temperature 97.6 f Comments: Method: Oral Pulse 68 /min Comments: Pattern: Regular Respiration Rate 18 /min Comments: Pattern: Unlabored BP Systolic 182 mm[Hg] Comments: Patient Position: Sitting; Cuff Location: Left Arm; Cuff Size: Large BP Diastolic 76 mm[Hg] Comments: Patient Position: Sitting; Cuff Location: Left Arm; Cuff Size: Large Weight 207 lb Height 0 in Head Circumference 0.00 cm :48 Temperature 97.7 f Comments: Method: Oral Pulse 68 /min Comments: Pattern: Regular Respiration Rate 16 /min Comments: Pattern: Unlabored BP Systolic 164 mm[Hg] Comments: Patient Position: Sitting; Cuff Location: Left Arm; Cuff Size: Standard BP Diastolic 88 mm[Hg] Comments: Patient Position: Sitting; Cuff Location: Left Arm; Cuff Size: Standard Weight 206 lb Height 0 in Head Circumference 0.00 cm :44 Pulse 70 /min Comments: Pattern: Regular Respiration Rate 16 /min Comments: Pattern: Unlabored BP Systolic 138 mm[Hg] Comments: Patient Position: Sitting; Cuff Location: Left Arm; Cuff Size: Standard BP Diastolic 72 mm[Hg] Comments: Patient Position: Sitting; Cuff Location: Left Arm; Cuff Size: Standard Weight 203.3125 lb Height 0 in Head Circumference 0.00 cm :14 Pulse 72 /min Comments: Pattern: Regular Respiration Rate 16 /min Comments: Pattern: Unlabored BP Systolic 148 mm[Hg] Comments: Patient Position: Sitting; Cuff Location: Left Arm; Cuff Size: Standard BP Diastolic 72 mm[Hg] Comments: Patient Position: Sitting; Cuff Location: Left Arm; Cuff Size: Standard Weight 208.25 lb Height 0 in Head Circumference 0.00 cm :06 Temperature 97.1 f Comments: Method: Oral Pulse 88 /min Comments: Pattern: Regular Respiration Rate 16 /min Comments: Pattern: Unlabored BP Systolic 142 mm[Hg] Comments: Patient Position: Sitting; Cuff Location: Left Arm; Cuff Size: Large BP Diastolic 72 mm[Hg] Comments: Patient Position: Sitting; Cuff Location: Left Arm; Cuff Size: Large Weight 204.5 lb Height 59 in Body Mass Index Calculated 41.3 kg/m2 Body Surface Area Calculated 1.86 m2 Head Circumference 0.00 cm :41 Temperature 98.2 f Comments: Method: Oral Pulse 92 /min Comments: Pattern: Regular Respiration Rate 16 /min Comments: Pattern: Unlabored BP Systolic 164 mm[Hg] Comments: Patient Position: Sitting; Cuff Location: Left Arm; Cuff Size: Large BP Diastolic 92 mm[Hg] Comments: Patient Position: Sitting; Cuff Location: Left Arm; Cuff Size: Large Weight 204.3125 lb Height 59 in Body Mass Index Calculated 41.27 kg/m2 Body Surface Area Calculated 1.86 m2 Head Circumference 0.00 cm :48 Temperature 96.6 f Comments: Method: Oral Pulse 68 /min Comments: Pattern: Regular Respiration Rate 16 /min Comments: Pattern: Unlabored BP Systolic 148 mm[Hg] Comments: Patient Position: Sitting; Cuff Location: Right Arm; Cuff Size: Standard BP Diastolic 78 mm[Hg] Comments: Patient Position: Sitting; Cuff Location: Right Arm; Cuff Size: Standard Weight 199 lb Height 59 in Body Mass Index Calculated 40.19 kg/m2 Body Surface Area Calculated 1.84 m2 Head Circumference 0.00 cm Results Date Description Value Details 6-Xzd-171228:37 METABOLIC PANEL, Comments: PATIENT NOT FASTINGPERFORMED BY: [facility] CenterCoM[facility] CenterGssopc3283 [facility] [id number] Information: NURSE DRAW COMPREHENSIVE (81186) ALT (SGPT) 16 [iU]/L (Normal) Range: 0-32 AST (SGOT) 20 [iU]/L (Normal) Range: 0-40 Alkaline Phosphatase 49 [iU]/L (Normal) Range: 39-117 Bilirubin, Total 0.6 mg/dL (Normal) Range: 0.0-1.2 A/G Ratio 1.6 (Normal) Range: 1.2-2.2 Globulin, Total 2.5 g/dL (Normal) Range: 1.5-4.5 Albumin 4.1 g/dL (Normal) Range: 3.5-4.8 Protein, Total 6.6 g/dL (Normal) Range: 6.0-8.5 Calcium 9.3 mg/dL (Normal) Range: 8.7-10.3 Carbon Dioxide, Total 23 mmol/L (Normal) Range: 20-29 Chloride 103 mmol/L (Normal) Range: 96-106 Potassium 4.3 mmol/L (Normal) Range: 3.5-5.2 Sodium 142 mmol/L (Normal) Range: 134-144 BUN/Creatinine Ratio 28 (Normal) Range: 12-28 eGFR If Africn Am 96 mL/min/1.73 (Normal) eGFR If NonAfricn Am 84 mL/min/1.73 (Normal) Creatinine 0.69 mg/dL (Normal) Range: 0.57-1.00 BUN 19 mg/dL (Normal) Range: 8-27 Glucose 131 mg/dL (Abnormal) Range: 65-99 3-Hlr-832715:37 CBC & PLATELETS (AUTO) ([id number]) Comments: PATIENT NOT FASTINGPERFORMED BY: [facility] Kchsyw9745 [facility] [id number] Platelets 262 {x10E3/uL} (Normal) Range: 150-379 RDW 14.0 % (Normal) Range: 12.3-15.4 MCHC 32.5 g/dL (Normal) Range: 31.5-35.7 MCH 30.4 pg (Normal) Range: 26.6-33.0 MCV 94 fL (Normal) Range: 79-97 Hematocrit 38.8 % (Normal) Range: 34.0-46.6 Hemoglobin 12.6 g/dL (Normal) Range: 11.1-15.9 RBC 4.14 {x10E6/uL} (Normal) Range: 3.77-5.28 WBC 8.8 {x10E3/uL} (Normal) Range: 3.4-10.8 50-Cud-744488:01 Protime w/INR Fingerstick Comments: [facility] [id number] [place], [place] [id number] INR ISTAT 1.90 (Normal) Comments: Critical Value > 3.5 PROTIME ISTAT 21.7 {SEC} (Abnormal) Range: 11.9-14.4 Comments: Reference Range 11.9 - 14.4 21-Fcg-748788:03 Protime w/INR Fingerstick Comments: [facility] [address] [place] [address] INR ISTAT 3.40 (Normal) Comments: Critical Value > 3.5 PROTIME ISTAT 38.3 {SEC} (Abnormal) Range: 11.9-14.4 Comments: Reference Range 11.9 - 14.4 69-Fax-703792:55 Basic Metabolic Profile (BMP) Comments: DR ROBLES ORDERED [facility] - BOSTONBETO TERAN ORDERED CBC/[facility] [address] [place], [address] GAP 8 (Normal) Range: 5-15 CO2 29.0 mmol/L (Normal) Range: 21.0-32.0 CL 106 mmol/L (Normal) Range: 98-107 K 4.1 mmol/L (Normal) Range: 3.5-5.1 NA 143 mmol/L (Normal) Range: 136-145 CA 9.0 mg/dL (Normal) Range: 8.5-10.1 BUN/CRE 22.9 {RATIO} (Abnormal) Range: 10-20 EST GFR - AA 97 mL/min (Normal) Comments: GFR Calc EST GFR 80 mL/min (Normal) Comments: Non- GFR Calc CREAT,SERUM 0.74 mg/dL (Normal) Range: 0.55-1.02 Comments: The validity of the calculated GFR AND GFRAA in patients over70 years has not been determined. Clinical correlation isessential. BUN 17 mg/dL (Normal) Range: 7-18 GLU 125 mg/dL (Abnormal) Range: 74-106 Comments: Fasting Glucose result from 100 to 125 mg/dLsuggests IMPAIRED HOMEOSTASIS per A.D.A. criteria.Please note revised GLUCOSE reference range gkzxhfveq40/02/2018. 02-Lhw-926065:55 CBC-Complete Blood Cnt No Diff Comments: DR ROBLES ORDERED PTTMICHAEL TERAN ORDERED CBC/[facility]MPWChildren[facility] [address] [place], [place], [id number] MPV 10.1 fL (Normal) Range: 6.2-12.0 PLT 251 K/mm3 (Normal) Range: 150-450 RDW SD 48.4 fL (Abnormal) Range: 35.1-43.9 RDW CV 14.1 % (Normal) Range: 11.6-14.6 MCHC 32.4 {g/gl} (Normal) Range: 32-36 MCH 30.6 pg (Normal) Range: 27.0-32.0 MCV 94.5 fL (Normal) Range: 81-99 HCT 38.0 % (Normal) Range: 37-47 HGB 12.3 g/dL (Normal) Range: 12.0-15.0 RBC 4.02 {M/mm3} (Abnormal) Range: 4.2-5.4 WBC 8.7 K/mm3 (Normal) Range: 4.4-11.0 78-Vgy-832341:55 Prothrombin Time w/INR Comments: DR ROBLES ORDERED PTTMICHAEL TERAN ORDERED CBC/BMPWChildren[facility] [address] [facility] [place], [address] INR 1.0 (Normal) PROTIME 13.3 s (Normal) Range: 11.7-14.9 79-Bip-531614:04 Protime w/INR Fingerstick Comments: [facility] [address] [place] [address] INR ISTAT 2.70 (Normal) Comments: Critical Value > 3.5 PROTIME ISTAT 31.1 {SEC} (Abnormal) Range: 11.9-14.4 Comments: Reference Range 11.9 - 14.4 68-Epg-841194:16 METABOLIC PANEL, BASIC Comments: PATIENT WAS FASTINGPERFORMED BY: LabCoMeadowlands Hospital Medical CenterTcfsos2130 [facility] [id number]; upcom appt ([id number]) Calcium 9.3 mg/dL (Normal) Range: 8.7-10.3 Carbon Dioxide, Total 21 mmol/L (Normal) Range: 20-29 Chloride 104 mmol/L (Normal) Range: 96-106 Potassium 4.6 mmol/L (Normal) Range: 3.5-5.2 Sodium 142 mmol/L (Normal) Range: 134-144 BUN/Creatinine Ratio 31 (Abnormal) Range: 12-28 eGFR If Africn Am 93 mL/min/1.73 (Normal) eGFR If NonAfricn Am 81 mL/min/1.73 (Normal) Creatinine 0.72 mg/dL (Normal) Range: 0.57-1.00 BUN 22 mg/dL (Normal) Range: 8-27 Glucose 118 mg/dL (Abnormal) Range: 65-99 15-Rbm-859224:47 Protime w/INR Fingerstick Comments: [facility] [address] [place] [address] INR ISTAT 2.50 (Normal) Comments: Critical Value > 3.5 PROTIME ISTAT 29.1 {SEC} (Abnormal) Range: 11.9-14.4 Comments: Reference Range 11.9 - 14.4 84-Aeo-641274:23 LIPID PANEL ([id number]) Comments: PATIENT WAS FASTINGPERFORMED BY: Fromlab [facility] [id number] LDL/HDL Ratio 0.7 {ratio} (Normal) Range: 0.0-3.2 Comments: LDL/HDL Ratio Men Women 1/2 Avg.Risk 1.0 1.5 Av g.Risk 3.6 3.2 2X Avg.Risk 6.2 5.0 3X Avg.Risk 8.0 6.1 LDL Cholesterol Calc 33 mg/dL (Normal) Range: 0-99 VLDL Cholesterol Drew 28 mg/dL (Normal) Range: 5-40 HDL Cholesterol 48 mg/dL (Normal) Triglycerides 140 mg/dL (Normal) Range: 0-149 Cholesterol, Total 109 mg/dL (Normal) Range: 100-199 66-Dxo-005667:23 TSH (THYROID STIMULATING Comments: PATIENT WAS FASTINGPERFORMED BY: [facility]VideoSurfFormerly [facility] [id number] HORMONE) ([id number]) TSH 1.970 {uIU/mL} (Normal) Range: 0.450-4.500 29-Aep-849907:23 MICROALBUMIN: CREATININE RATIO Comments: PATIENT WAS FASTINGPERFORMED BY: [facility] [id number] ([id number]) AND ([id number]) Alb/Creat Ratio 14.1 {mg/g_creat} (Normal) Range: 0.0-30.0 Albumin, Urine 18.3 ug/mL (Normal) Creatinine, Urine 129.4 mg/dL (Normal) 63-Rqq-695162:23 METABOLIC PANEL, COMPREHENSIVE Comments: PATIENT WAS FASTINGPERFORMED BY: [facility] ATM ServicesUNM Sandoval Regional Medical CenterUmvwns8043 [facility] [id number] ([id number]) ALT (SGPT) 19 [iU]/L (Normal) Range: 0-32 AST (SGOT) 24 [iU]/L (Normal) Range: 0-40 Alkaline Phosphatase 41 [iU]/L (Normal) Range: 39-117 Bilirubin, Total 0.8 mg/dL (Normal) Range: 0.0-1.2 A/G Ratio 1.7 (Normal) Range: 1.2-2.2 Globulin, Total 2.4 g/dL (Normal) Range: 1.5-4.5 Albumin 4.0 g/dL (Normal) Range: 3.5-4.8 Protein, Total 6.4 g/dL (Normal) Range: 6.0-8.5 Calcium 9.3 mg/dL (Normal) Range: 8.7-10.3 Carbon Dioxide, Total 21 mmol/L (Normal) Range: 20-29 Chloride 103 mmol/L (Normal) Range: 96-106 Potassium 4.4 mmol/L (Normal) Range: 3.5-5.2 Sodium 141 mmol/L (Normal) Range: 134-144 BUN/Creatinine Ratio 32 (Abnormal) Range: 12-28 eGFR If Africn Am 97 mL/min/1.73 (Normal) eGFR If NonAfricn Am 84 mL/min/1.73 (Normal) Creatinine 0.69 mg/dL (Normal) Range: 0.57-1.00 BUN 22 mg/dL (Normal) Range: 8-27 Glucose 116 mg/dL (Abnormal) Range: 65-99 12-Cnh-514968:23 HGB A1C (65636) Comments: PATIENT WAS FASTINGPERFORMED BY: [facility] ATM ServicesUNM Sandoval Regional Medical CenterMernoo9398 [facility] [id number] Hemoglobin A1c 6.7 % (Abnormal) Range: 4.8-5.6 Comments: . Prediabetes: 5.7 - 6.4 Diabetes: >6.4 Glycemic control for adults with diabetes: <7.0 9-Mir-893700:22 Protime w/INR Fingerstick Comments: [place] [address] [place] [address] INR ISTAT 2.90 (Normal) Comments: Critical Value > 3.5 PROTIME ISTAT 32.8 {SEC} (Abnormal) Range: 11.9-14.4 Comments: Reference Range 11.9 - 14.4 97-Hax-219606:47 Prothrombin Time w/INR Comments: [place] [address] [place], [address] INR 2.2 (Normal) PROTIME 24.8 s (Abnormal) Range: 11.7-14.9 04-Med-998621:10 Protime w/INR Fingerstick Comments: [place] [address] [place] [address] INR ISTAT 3.30 (Normal) Comments: Critical Value > 3.5 PROTIME ISTAT 37.3 {SEC} (Abnormal) Range: 11.9-14.4 Comments: Reference Range 11.9 - 14.4 52-Bsk-63622:57 Protime w/INR Fingerstick Comments: [place] [address] [place] [address] INR ISTAT 2.40 (Normal) Comments: Critical Value > 3.5 PROTIME ISTAT 27.2 {SEC} (Abnormal) Range: 11.9-14.4 Comments: Reference Range 11.9 - 14.4 88-Tvw-970884:03 LIPID PANEL (69013) Comments: PATIENT WAS FASTINGPERFORMED BY: [facility] [address] [place] [id number] LDL/HDL Ratio 0.9 {ratio} (Normal) Range: 0.0-3.2 Comments: LDL/HDL Ratio Men Women 1/2 Avg.Risk 1.0 1.5 Av g.Risk 3.6 3.2 2X Avg.Risk 6.2 5.0 3X Avg.Risk 8.0 6.1 LDL Cholesterol Calc 44 mg/dL (Normal) Range: 0-99 VLDL Cholesterol Drew 27 mg/dL (Normal) Range: 5-40 HDL Cholesterol 47 mg/dL (Normal) Triglycerides 137 mg/dL (Normal) Range: 0-149 Cholesterol, Total 118 mg/dL (Normal) Range: 100-199 16-Wsw-365437:03 CBC with auto diff ([id number]) Comments: PATIENT WAS FASTINGPERFORMED BY: LabCoMeadowlands Hospital Medical CenterIvtvel3073 [facility] [id number] Immature Grans (Abs) 0.0 {x10E3/uL} (Normal) Range: 0.0-0.1 Immature Granulocytes 0 % (Normal) Baso (Absolute) 0.1 {x10E3/uL} (Normal) Range: 0.0-0.2 Eos (Absolute) 0.4 {x10E3/uL} (Normal) Range: 0.0-0.4 Monocytes(Absolute) 0.9 {x10E3/uL} (Normal) Range: 0.1-0.9 Lymphs (Absolute) 3.8 {x10E3/uL} (Abnormal) Range: 0.7-3.1 Neutrophils (Absolute) 4.0 {x10E3/uL} (Normal) Range: 1.4-7.0 Basos 1 % (Normal) Eos 4 % (Normal) Monocytes 9 % (Normal) Lymphs 42 % (Normal) Neutrophils 44 % (Normal) Platelets 282 {x10E3/uL} (Normal) Range: 150-379 RDW 14.3 % (Normal) Range: 12.3-15.4 MCHC 32.7 g/dL (Normal) Range: 31.5-35.7 MCH 30.6 pg (Normal) Range: 26.6-33.0 MCV 94 fL (Normal) Range: 79-97 Hematocrit 37.0 % (Normal) Range: 34.0-46.6 Hemoglobin 12.1 g/dL (Normal) Range: 11.1-15.9 RBC 3.95 {x10E6/uL} (Normal) Range: 3.77-5.28 WBC 9.1 {x10E3/uL} (Normal) Range: 3.4-10.8 00-Gxa-791531:03 METABOLIC PANEL, COMPREHENSIVE Comments: PATIENT WAS FASTINGPERFORMED BY: RYLIE [employer]70 [facility] [id number]; will review at upcoming appt ([id number]) ALT (SGPT) 20 [iU]/L (Normal) Range: 0-32 AST (SGOT) 25 [iU]/L (Normal) Range: 0-40 Alkaline Phosphatase 42 [iU]/L (Normal) Range: 39-117 Bilirubin, Total 0.6 mg/dL (Normal) Range: 0.0-1.2 A/G Ratio 1.5 (Normal) Range: 1.2-2.2 Globulin, Total 2.6 g/dL (Normal) Range: 1.5-4.5 Albumin 4.0 g/dL (Normal) Range: 3.5-4.8 Protein, Total 6.6 g/dL (Normal) Range: 6.0-8.5 Calcium 9.2 mg/dL (Normal) Range: 8.7-10.3 Carbon Dioxide, Total 24 mmol/L (Normal) Range: 18-29 Chloride 100 mmol/L (Normal) Range: 96-106 Potassium 4.6 mmol/L (Normal) Range: 3.5-5.2 Sodium 140 mmol/L (Normal) Range: 134-144 BUN/Creatinine Ratio 36 (Abnormal) Range: 12-28 eGFR If Africn Am 88 mL/min/1.73 (Normal) eGFR If NonAfricn Am 76 mL/min/1.73 (Normal) Creatinine 0.76 mg/dL (Normal) Range: 0.57-1.00 BUN 27 mg/dL (Normal) Range: 8-27 Glucose 119 mg/dL (Abnormal) Range: 65-99 07-Hhx-276019:03 HGB A1C (66728) Comments: PATIENT WAS FASTINGPERFORMED BY: RYLIE [employer]6370 [facility] [id number] Hemoglobin A1c 6.4 % (Abnormal) Range: 4.8-5.6 Comments: . Pre-diabetes: 5.7 - 6.4 Diabetes: >6.4 Glycemic control for adults with diabetes: <7.0 87-Bbw-174282:53 URINE KRISTINA CULTURE-IDENTIFICATN Comments: PATIENT NOT FASTINGPERFORMED BY: LabMcl[facility] Region6370 [facility] [id number] Information: SRC:UC ([id number]) Result 1 MTHREE (Normal) Comments: More than 3 organisms recovered, none predominant. Please submitanother culture if clinically indicated.4,000 Colonies/mL Urine Final report (Normal) Culture,Comprehensive 06-Vxc-179109:42 Protime w/INR Fingerstick Comments: [place] [address] [place], [place] [id number] INR ISTAT 3.30 (Normal) Comments: Critical Value > 3.5 PROTIME ISTAT 37.8 {SEC} (Abnormal) Range: 11.9-14.4 Comments: Reference Range 11.9 - 14.4 02-Vig-168522:59 Microscopic Examination Comments: PATIENT NOT FASTINGPERFORMED BY: [address] [id number] Bacteria Few (Normal) Mucus Threads Present (Normal) Crystal Type Calcium Oxalate (Normal) Crystals Present (Abnormal) Cast Type Hyaline casts (Normal) Casts Present {/lpf} (Abnormal) Epithelial Cells (non renal) 0-10 {/hpf} (Normal) Range: 0 - 10 RBC 0-2 {/hpf} (Normal) Range: 0 - 2 WBC 11-30 {/hpf} (Abnormal) Range: 0 - 5 32-Liy-569202:22 Protime w/INR Fingerstick Comments: [place] [address] [place], [place] [address] INR ISTAT 2.20 (Normal) Comments: Critical Value > 3.5 PROTIME ISTAT 25.9 {SEC} (Abnormal) Range: 11.9-14.4 Comments: Reference Range 11.9 - 14.4 :59 CBC W/AUTO DIFF WBC Comments: PATIENT NOT FASTINGPERFORMED BY: LabMclaren [facility] Region6370 [facility] [id number] Information: NURSE DRAW ([id number]) Immature Grans (Abs) 0.0 {x10E3/uL} (Normal) Range: 0.0-0.1 Immature Granulocytes 0 % (Normal) Baso (Absolute) 0.1 {x10E3/uL} (Normal) Range: 0.0-0.2 Eos (Absolute) 0.4 {x10E3/uL} (Normal) Range: 0.0-0.4 Monocytes(Absolute) 0.8 {x10E3/uL} (Normal) Range: 0.1-0.9 Lymphs (Absolute) 4.2 {x10E3/uL} (Abnormal) Range: 0.7-3.1 Neutrophils (Absolute) 4.0 {x10E3/uL} (Normal) Range: 1.4-7.0 Basos 1 % (Normal) Eos 4 % (Normal) Monocytes 8 % (Normal) Lymphs 45 % (Normal) Neutrophils 42 % (Normal) Platelets 284 {x10E3/uL} (Normal) Range: 150-379 RDW 14.5 % (Normal) Range: 12.3-15.4 MCHC 31.8 g/dL (Normal) Range: 31.5-35.7 MCH 30.2 pg (Normal) Range: 26.6-33.0 MCV 95 fL (Normal) Range: 79-97 Hematocrit 39.9 % (Normal) Range: 34.0-46.6 Hemoglobin 12.7 g/dL (Normal) Range: 11.1-15.9 Comments: Please note reference interval change RBC 4.20 {x10E6/uL} (Normal) Range: 3.77-5.28 WBC 9.5 {x10E3/uL} (Normal) Range: 3.4-10.8 10-Xua-830949:59 METABOLIC PANEL, COMPREHENSIVE Comments: PATIENT NOT FASTINGPERFORMED BY: LabCoMeadowlands Hospital Medical CenterZssekj9870 [facility] [id number] ([id number]) ALT (SGPT) 16 [iU]/L (Normal) Range: 0-32 AST (SGOT) 22 [iU]/L (Normal) Range: 0-40 Alkaline Phosphatase, S 44 [iU]/L (Normal) Range: 39-117 Bilirubin, Total 0.5 mg/dL (Normal) Range: 0.0-1.2 A/G Ratio 1.6 (Normal) Range: 1.2-2.2 Globulin, Total 2.6 g/dL (Normal) Range: 1.5-4.5 Albumin, Serum 4.1 g/dL (Normal) Range: 3.5-4.8 Protein, Total, Serum 6.7 g/dL (Normal) Range: 6.0-8.5 Calcium, Serum 9.1 mg/dL (Normal) Range: 8.7-10.3 Carbon Dioxide, Total 24 mmol/L (Normal) Range: 18-29 Chloride, Serum 103 mmol/L (Normal) Range: 96-106 Potassium, Serum 4.0 mmol/L (Normal) Range: 3.5-5.2 Sodium, Serum 143 mmol/L (Normal) Range: 134-144 BUN/Creatinine Ratio 35 (Abnormal) Range: 12-28 eGFR If Africn Am 97 mL/min/1.73 (Normal) eGFR If NonAfricn Am 84 mL/min/1.73 (Normal) Creatinine, Serum 0.69 mg/dL (Normal) Range: 0.57-1.00 BUN 24 mg/dL (Normal) Range: 8-27 Glucose, Serum 121 mg/dL (Abnormal) Range: 65-99 33-Hrm-288930:59 MICROALBUMIN: CREATININE RATIO Comments: PATIENT NOT FASTINGPERFORMED BY: [employer]6370 [facility]IScienceFormerly [facility] [id number] ([id number]) AND ([id number]) Microalb/Creat Ratio 14.1 {mg/g_creat} (Normal) Range: 0.0-30.0 Microalbumin, Urine 17.0 ug/mL (Normal) Creatinine, Urine 120.9 mg/dL (Normal) 20-Yrs-866556:59 URINALYSIS, W/ MICRO (45119) Comments: PATIENT NOT FASTINGPERFORMED BY: [employer] Urwanh4710 BIScienceFormer[facility] [id number] Microscopic Examination See below: (Normal) Comments: Microscopic was indicated and was performed. Nitrite, Urine Negative (Normal) Urobilinogen,Semi-Qn 0.2 mg/dL (Normal) Range: 0.2-1.0 Bilirubin Negative (Normal) Occult Blood Negative (Normal) Ketones Negative (Normal) Glucose Negative (Normal) Protein Negative (Normal) WBC Esterase 2+ (Abnormal) Appearance Clear (Normal) Urine-Color Yellow (Normal) pH 5.0 (Normal) Range: 5.0-7.5 Specific [place] 1.029 (Normal) Range: 1.005-1.030 29-Dej-705060:23 INR Fingerstick Comments: [place] [address] [place] [address] INR ISTAT 2.70 (Normal) Comments: Critical Value > 3.5; ADDENDA: managed by cardio 89-Txr-704969:23 Prothrombin Time Fingerstick Comments: [place] [address] [place] [address] PROTIME ISTAT 30.4 {SEC} (Abnormal) Range: 11.9-14.4 Comments: Reference Range 11.9 - 14.4 :24 LIPASE (83357) Comments: PATIENT WAS FASTINGPERFORMED BY: Fromlab [facility] HospitalVideoSurfFormerly [facility] [id number]; can review on 03/14 Lipase, Serum 53 U/L (Normal) Range: 0-59 6-Ilk-029832:24 CBC with auto diff (40687) Comments: PATIENT WAS FASTINGPERFORMED BY: [employer]usion [facility] [id number] Immature Grans (Abs) 0.0 {x10E3/uL} (Normal) Range: 0.0-0.1 Immature Granulocytes 0 % (Normal) Baso (Absolute) 0.1 {x10E3/uL} (Normal) Range: 0.0-0.2 Eos (Absolute) 0.4 {x10E3/uL} (Normal) Range: 0.0-0.4 Monocytes(Absolute) 0.6 {x10E3/uL} (Normal) Range: 0.1-0.9 Lymphs (Absolute) 3.4 {x10E3/uL} (Abnormal) Range: 0.7-3.1 Neutrophils (Absolute) 3.6 {x10E3/uL} (Normal) Range: 1.4-7.0 Basos 1 % (Normal) Eos 5 % (Normal) Monocytes 7 % (Normal) Lymphs 42 % (Normal) Neutrophils 45 % (Normal) Platelets 269 {x10E3/uL} (Normal) Range: 150-379 RDW 14.0 % (Normal) Range: 12.3-15.4 MCHC 33.1 g/dL (Normal) Range: 31.5-35.7 MCH 30.4 pg (Normal) Range: 26.6-33.0 MCV 92 fL (Normal) Range: 79-97 Hematocrit 37.2 % (Normal) Range: 34.0-46.6 Hemoglobin 12.3 g/dL (Normal) Range: 11.1-15.9 RBC 4.04 {x10E6/uL} (Normal) Range: 3.77-5.28 WBC 8.1 {x10E3/uL} (Normal) Range: 3.4-10.8 :24 LIPID PANEL (11933) Comments: PATIENT WAS FASTINGPERFORMED BY: [employer] [facility] [id number] LDL/HDL Ratio 0.7 {ratio_units} (Normal) Range: 0.0-3.2 Comments: LDL/HDL Ratio Men Women 1/2 Avg.Risk 1.0 1.5 Av g.Risk 3.6 3.2 2X Avg.Risk 6.2 5.0 3X Avg.Risk 8.0 6.1 LDL Cholesterol Calc 35 mg/dL (Normal) Range: 0-99 VLDL Cholesterol Drew 28 mg/dL (Normal) Range: 5-40 HDL Cholesterol 48 mg/dL (Normal) Triglycerides 140 mg/dL (Normal) Range: 0-149 Cholesterol, Total 111 mg/dL (Normal) Range: 100-199 [id number] METABOLIC PANEL, COMPREHENSIVE Comments: PATIENT WAS FASTINGPERFORMED BY: [email or web address] [facility] [id number] ([id number]) ALT (SGPT) 15 [iU]/L (Normal) Range: 0-32 AST (SGOT) 18 [iU]/L (Normal) Range: 0-40 Alkaline Phosphatase, S 43 [iU]/L (Normal) Range: 39-117 Bilirubin, Total 0.8 mg/dL (Normal) Range: 0.0-1.2 A/G Ratio 2.0 (Normal) Range: 1.2-2.2 Globulin, Total 2.1 g/dL (Normal) Range: 1.5-4.5 Albumin, Serum 4.1 g/dL (Normal) Range: 3.5-4.8 Protein, Total, Serum 6.2 g/dL (Normal) Range: 6.0-8.5 Calcium, Serum 9.1 mg/dL (Normal) Range: 8.7-10.3 Carbon Dioxide, Total 24 mmol/L (Normal) Range: 18-29 Chloride, Serum 102 mmol/L (Normal) Range: 96-106 Potassium, Serum 4.5 mmol/L (Normal) Range: 3.5-5.2 Sodium, Serum 143 mmol/L (Normal) Range: 134-144 BUN/Creatinine Ratio 28 (Normal) Range: 12-28 eGFR If Africn Am 99 mL/min/1.73 (Normal) eGFR If NonAfricn Am 86 mL/min/1.73 (Normal) Creatinine, Serum 0.67 mg/dL (Normal) Range: 0.57-1.00 BUN 19 mg/dL (Normal) Range: 8-27 Glucose, Serum 114 mg/dL (Abnormal) Range: 65-99 [id number] HGB A1C ([id number]) Comments: PATIENT WAS FASTINGPERFORMED BY: [id number] [id number] Hemoglobin A1c 6.5 % (Abnormal) Range: 4.8-5.6 Comments: . Pre-diabetes: 5.7 - 6.4 Diabetes: >6.4 Glycemic control for adults with diabetes: <7.0 [id number] HgA1C , Office ([id number]) HgA1C , Office 6.1 % (Normal) Range: 4.6 - 7.1 [id number] INR Fingerstick Comments: [place] [facility] [address] [place] [address] INR ISTAT 2.00 (Normal) Comments: Critical Value > 3.5; ADDENDA: managed by cardio 4-Coc-300023:44 Prothrombin Time Fingerstick Comments: [facility] [place] [address] [place] [address] PROTIME ISTAT 22.8 {SEC} (Abnormal) Range: 11.9-14.4 Comments: Reference Range 11.9 - 14.4 27-Cqt-685442:15 INR Fingerstick Comments: [place] [id number] [place] [address] INR ISTAT 2.40 (Normal) Comments: Critical Value > 3.5 22-Ogg-988497:15 Prothrombin Time Fingerstick Comments: [place] [address] [place] [address] PROTIME ISTAT 27.3 {SEC} (Abnormal) Range: 11.9-14.4 Comments: Reference Range 11.9 - 14.4 48-Ona-140806:13 Clostridium difficile Comments: PATIENT NOT FASTINGPERFORMED BY: [facility] [id number] [facility] [id number] Information: SRC:ST Toxin A+B, EIA (22079) C difficile Toxins A+B, EIA Negative (Normal) 04-Ugg-870195:20 Lipase (23134) Comments: PATIENT NOT FASTINGPERFORMED BY: [facility] Oyjnxr2962 [facility] [id number] Lipase, Serum 77 U/L (Abnormal) Range: 0-59 55-Pkw-789581:20 Amylase (20217) Comments: PATIENT NOT FASTINGPERFORMED BY: [facility] Ydigjh1493 [facility] [id number] Amylase, Serum 58 U/L (Normal) Range: 31-124 22-Ykr-729678:20 TSH (32230) Comments: PATIENT NOT FASTINGPERFORMED BY: [facility] Tlrlbq1286 [facility] [place] [id number] TSH 1.390 {uIU/mL} (Normal) Range: 0.450-4.500 31-Qnv-899925:20 CBC W/AUTO DIFF WBC (35323) Comments: PATIENT NOT FASTINGPERFORMED BY: [facility] Iritfp0727 [facility] [place] [id number] Immature Grans (Abs) 0.0 {x10E3/uL} (Normal) Range: 0.0-0.1 Immature Granulocytes 0 % (Normal) Baso (Absolute) 0.1 {x10E3/uL} (Normal) Range: 0.0-0.2 Eos (Absolute) 0.7 {x10E3/uL} (Abnormal) Range: 0.0-0.4 Monocytes(Absolute) 0.6 {x10E3/uL} (Normal) Range: 0.1-0.9 Lymphs (Absolute) 3.3 {x10E3/uL} (Abnormal) Range: 0.7-3.1 Neutrophils (Absolute) 3.4 {x10E3/uL} (Normal) Range: 1.4-7.0 Basos 1 % (Normal) Eos 9 % (Normal) Monocytes 7 % (Normal) Lymphs 40 % (Normal) Neutrophils 43 % (Normal) Platelets 217 {x10E3/uL} (Normal) Range: 150-379 RDW 14.3 % (Normal) Range: 12.3-15.4 MCHC 32.6 g/dL (Normal) Range: 31.5-35.7 MCH 30.5 pg (Normal) Range: 26.6-33.0 MCV 94 fL (Normal) Range: 79-97 Hematocrit 35.6 % (Normal) Range: 34.0-46.6 Hemoglobin 11.6 g/dL (Normal) Range: 11.1-15.9 RBC 3.80 {x10E6/uL} (Normal) Range: 3.77-5.28 WBC 8.1 {x10E3/uL} (Normal) Range: 3.4-10.8 69-Uwp-025881:20 METABOLIC PANEL, COMPREHENSIVE Comments: PATIENT NOT FASTINGPERFORMED BY: [facility] CenterZiegbx6455 [facility] [id number] ([id number]) ALT (SGPT) 16 [iU]/L (Normal) Range: 0-32 AST (SGOT) 20 [iU]/L (Normal) Range: 0-40 Alkaline Phosphatase, S 39 [iU]/L (Normal) Range: 39-117 Bilirubin, Total 0.6 mg/dL (Normal) Range: 0.0-1.2 A/G Ratio 1.8 (Normal) Range: 1.2-2.2 Comments: Please note reference interval change Globulin, Total 2.3 g/dL (Normal) Range: 1.5-4.5 Albumin, Serum 4.1 g/dL (Normal) Range: 3.5-4.8 Protein, Total, Serum 6.4 g/dL (Normal) Range: 6.0-8.5 Calcium, Serum 8.8 mg/dL (Normal) Range: 8.7-10.3 Carbon Dioxide, Total 21 mmol/L (Normal) Range: 18-29 Chloride, Serum 104 mmol/L (Normal) Range: 96-106 Potassium, Serum 4.2 mmol/L (Normal) Range: 3.5-5.2 Sodium, Serum 144 mmol/L (Normal) Range: 134-144 BUN/Creatinine Ratio 36 (Abnormal) Range: 11-26 Comments: Effective October 04, 2016 BUN/Creatinine Ratio reference interval will be changing to: Age Male Female 0 days - 7 days 9 - 25 9 - 26 8 days - 30 days 8 - 32 10 - 33 1 month - 6 months 11 - 57 11 - 54 7 mo nths - 1 year - 71 20 - 71 2 years - 5 years 19 - 51 19 - 49 6 years - 12 years 14 - 34 13 - 32 13 years - 17 years 10 - 22 10 - 22 18 years - 59 years 9 - 20 9 - 23 >59 years 10 - 24 12 - 28 eGFR If Africn Am 91 mL/min/1.73 (Normal) eGFR If NonAfricn Am 79 mL/min/1.73 (Normal) Creatinine, Serum 0.74 mg/dL (Normal) Range: 0.57-1.00 BUN 27 mg/dL (Normal) Range: 8-27 Glucose, Serum 97 mg/dL (Normal) Range: 65-99 76-Gpk-036616:27 Urinalysis, Office (48518) UA - LEUKOCYTE ESTERASE Small (Normal) UA - NITRITE Negative (Normal) URINE UROBILINGN AGNES TIMED Normal mg/dL (Normal) UA - PROTEIN Negative mg/dL (Normal) UA - PH 6 (Abnormal) UA - BLOOD non-hemolyzed trace (Normal) UA - SPECIFIC GRAVITY 1.025 (Normal) UA - KETONES Negative mg/dL (Normal) UA - BILIRUBIN Negative (Normal) UA - GLUCOSE Negative (Normal) 08-Zai-750520:54 URINE KRISTINA CULTURE (AGNES Comments: PATIENT NOT FASTINGPERFORMED BY: [place] [id number] [facility] [id number] Information: SRC: COL COUNT) (44941) Result 1 NG36 (Normal) Comments: No growth in 36 - 48 hours. Urine Culture,Comprehensive Final report (Normal) 4-Gux-488164:06 Microscopic Examination Comments: PATIENT NOT FASTINGPERFORMED BY: [place] [id number] [facility] [id number] Bacteria Few (Normal) Mucus Threads Present (Normal) Cast Type Hyaline casts (Normal) Casts Present {/lpf} (Abnormal) Epithelial Cells (non renal) 0-10 {/hpf} (Normal) Range: 0 - 10 RBC 3-10 {/hpf} (Abnormal) Range: 0 - 2 WBC 11-30 {/hpf} (Abnormal) Range: 0 - 5 2-Nks-593572:06 URINALYSIS, W/ MICRO Comments: PATIENT NOT FASTINGPERFORMED BY: [address] [id number] Information: SRC: ([id number]) Microscopic Examination See below: (Normal) Comments: Microscopic was indicated and was performed. Nitrite, Urine Negative (Normal) Urobilinogen,Semi-Qn 0.2 mg/dL (Normal) Range: 0.2-1.0 Bilirubin Negative (Normal) Occult Blood Negative (Normal) Ketones Negative (Normal) Glucose Negative (Normal) Protein Negative (Normal) WBC Esterase 3+ (Abnormal) Appearance Clear (Normal) Urine-Color Yellow (Normal) pH 5.5 (Normal) Range: 5.0-7.5 Specific [place] 1.023 (Normal) Range: 1.005-1.030 9-Dvf-129031:06 URINE KRISTINA CULTURE (AGNES COL Comments: PATIENT NOT FASTINGPERFORMED BY: [address] [id number] COUNT) (24015) Antimicrobial MIHEAD (Normal) Comments: S = Susceptible; I = Intermediate; R = Resistant P = Positive; N = Negative MICS are expressed in micrograms per mL Antibiotic RSLT#1 RSLT#2 RS Susceptibility LT#3 RSLT#4Amoxicillin/Clavulanic Acid R SAmpicillin SCefazolin RCefepime S SCeftriaxone S SCefuroxime R SCephalothin R ICiprofloxacin S S SErtapenem S SGentamicin S SImipenem S SLevofloxacin S S SNitrofurantoin R S SPenicillin SPiperacillin S STetracycline R S RTobramycin S STrimethoprim/Sulfa S SVancomycin S Result 3 Enterococcus faecalis Comments: Greater than 100,000 colony forming units per mLNote: this isolate is vancomycin-susceptible.This information is provided for epidemiologic purposes only:vancomycin is not among the antibiotics recommen (Abnormal) ded for therapyof urinary tract infections caused by Enterococcus.For Enterococcus species, cephalosporins, aminoglycosides (except forhigh-level resistance screening), clindamycin, and trimethoprim-sul famethoxazole are not effective clinically. Fluoroquinolones areused primarily for treating urinary tract infections. (CLSI, Q031-I08,2009) Result 2 ECV (Abnormal) Comments: Escherichia coli, identified by an automated biochemical system.2,000 Colonies/mL Result 1 Serratia marcescens Comments: Greater than 100,000 colony forming units per mL (Abnormal) Urine Final report Culture,Comprehensive (Abnormal) 9-Wgw-248563:27 CALCULUS CHEMICAL QUANTI Comments: PATIENT NOT FASTINGPERFORMED BY: [employer] [id number] ([id number]) Please note: SPRCS (Normal) Comments: Calculi report without photograph will follow via computer, mail,or campus receptionist delivery.Physician questions regarding Calculi Analysis contact [employer] at:[phone].This test was developed and its perfor mile characteristicsdetermined by [employer]. It has not been cleared or approvedby the Food and Drug Administration. Nidus CORCAM (Normal) Comments: Nidus composed of Calcium oxalate monohydrate. Calcium phosphate 03 % (Normal) Ca oxalate monohydr. 97 % (Normal) Composition SPRCS (Normal) Comments: Percentage (Represents the % composition) Weight 45.0 mg (Normal) Size 5x4x2 mm (Normal) Color Brown (Normal) 9-Bha-721366:59 Metabolic Panel, Basic (76355) Comments: PATIENT NOT FASTINGPERFORMED BY: [facility]6370 [facility] [id number] Calcium, Serum 9.5 mg/dL (Normal) Range: 8.7-10.3 Carbon Dioxide, Total 26 mmol/L (Normal) Range: 18-29 Chloride, Serum 102 mmol/L (Normal) Range: 96-106 Potassium, Serum 4.3 mmol/L (Normal) Range: 3.5-5.2 Sodium, Serum 145 mmol/L (Abnormal) Range: 134-144 BUN/Creatinine Ratio 36 (Abnormal) Range: 11-26 eGFR If Africn Am 85 mL/min/1.73 (Normal) eGFR If NonAfricn Am 74 mL/min/1.73 (Normal) Creatinine, Serum 0.78 mg/dL (Normal) Range: 0.57-1.00 BUN 28 mg/dL (Abnormal) Range: 8-27 Glucose, Serum 127 mg/dL (Abnormal) Range: 65-99 4-Slb-291788:59 CBC W/AUTO DIFF WBC (28744) Comments: PATIENT NOT FASTINGPERFORMED BY: [facility] Ezlztc5226 [facility] [id number] Immature Grans (Abs) 0.0 {x10E3/uL} (Normal) Range: 0.0-0.1 Immature Granulocytes 0 % (Normal) Baso (Absolute) 0.1 {x10E3/uL} (Normal) Range: 0.0-0.2 Eos (Absolute) 0.9 {x10E3/uL} (Abnormal) Range: 0.0-0.4 Monocytes(Absolute) 0.8 {x10E3/uL} (Normal) Range: 0.1-0.9 Lymphs (Absolute) 3.3 {x10E3/uL} (Abnormal) Range: 0.7-3.1 Neutrophils (Absolute) 4.9 {x10E3/uL} (Normal) Range: 1.4-7.0 Basos 1 % (Normal) Eos 9 % (Normal) Monocytes 8 % (Normal) Lymphs 33 % (Normal) Neutrophils 49 % (Normal) Platelets 359 {x10E3/uL} (Normal) Range: 150-379 RDW 14.0 % (Normal) Range: 12.3-15.4 MCHC 33.6 g/dL (Normal) Range: 31.5-35.7 MCH 30.3 pg (Normal) Range: 26.6-33.0 MCV 90 fL (Normal) Range: 79-97 Hematocrit 37.2 % (Normal) Range: 34.0-46.6 Hemoglobin 12.5 g/dL (Normal) Range: 11.1-15.9 RBC 4.12 {x10E6/uL} (Normal) Range: 3.77-5.28 WBC 10.0 {x10E3/uL} (Normal) Range: 3.4-10.8 40-Vub-071824:40 Basic Metabolic Profile (BMP) Comments: [facility] [address] [place], [place], [id number] GAP 11 (Normal) Range: 5-15 CO2 26.0 mmol/L (Normal) Range: 21.0-32.0 CL 102 mmol/L (Normal) Range: 98-107 K 4.1 mmol/L (Normal) Range: 3.5-5.1 NA 139 mmol/L (Normal) Range: 136-145 CA 9.4 mg/dL (Normal) Range: 8.5-10.1 BUN/CRE 25.0 {RATIO} (Abnormal) Range: 10-20 Estimated CRCL 68.54 ml/min (Normal) EST GFR - AA 76 mL/min (Normal) Comments: GFR Calc EST GFR 63 mL/min (Normal) Comments: Non- GFR Calc CREAT,SERUM 0.92 mg/dL (Normal) Range: 0.55-1.02 Comments: The validity of the calculated GFR AND GFRAA in patients over70 years has not been determined. Clinical correlation isessential. BUN 23 mg/dL (Abnormal) Range: 7-18 GLU 125 mg/dL (Abnormal) Range: 70-110 Comments: Fasting Glucose result from 110 to <126 mg/dLsuggests IMPAIRED HOMEOSTASIS per A.D.A. criteria. 30-Cvr-945354:40 CBC W/Diff, Automated Comments: [facility] [address] [place], [place], [id number] Absolute Lymph 1.94 {X10_3/ul} (Normal) Range: 0.83-4.51 Absolute Neut 11.6 {X10_3/uL} (Abnormal) Range: 2.0-7.7 IM GRAN % 0.300 % (Normal) Range: 0.0-0.9 Comments: IG% - Immature Granulocytes (promyelocytes, myelocytes andmetamyelocytes) > 1% indicates that a LEFT SHIFT is Present. BASO% 0.4 % (Normal) Range: 0-1 EO% 1.0 % (Normal) Range: 0-5 MONO% 5.9 % (Normal) Range: 0-10 LY% 13.2 % (Abnormal) Range: 19-41 NEUT% 79.2 % (Abnormal) Range: 47-70 MPV 9.7 fL (Normal) Range: 6.2-12.0 PLT 266 K/mm3 (Normal) Range: 150-450 RDW SD 47.3 fL (Abnormal) Range: 35.1-43.9 RDW CV 13.8 % (Normal) Range: 11.6-14.6 MCHC 32.8 {g/gl} (Normal) Range: 32-36 MCH 30.7 pg (Normal) Range: 27.0-32.0 MCV 93.6 fL (Normal) Range: 81-99 HCT 40.8 % (Normal) Range: 37-47 HGB 13.4 g/dL (Normal) Range: 12.0-15.0 RBC 4.36 {M/mm3} (Normal) Range: 4.2-5.4 WBC 14.7 K/mm3 (Abnormal) Range: 4.4-11.0 27-Sor-943986:30 Urinalysis, Complete Comments: Order Date: 08/28/16Order Date: 08/28/16How was Urine Obtained? [facility] [address] [place], [address] MUCUS, URINE 1+ {/hpf} (Normal) BACTERIA 1+ {/hpf} (Normal) SQUAM EPI 10-25 SEEN {/hpf} (Normal) Range: 5-10 RBC-UA 50-100 SEEN {/hpf} (Normal) Range: 0-5 WBC 25-50 SEEN {/hpf} (Normal) Range: 0-5 LEUK ESTERASE 500 /ul (Abnormal) OCCULT BLOOD-UR 250 /ul (Abnormal) NITRITE UR Negative (Normal) UROBILI Normal mg/dL (Normal) PROT DIPSTX 30 mg/dL (Abnormal) pH UR 5.0 (Normal) Range: 5.0 - 8.0 SP.GR. DIPSTX 1.025 (Normal) Range: 1.002-1.030 KETONE UR Negative mg/dL (Normal) BILIRUBIN URINE 1 mg/dL (Abnormal) Comments: COLOR OF URINE MAY AFFECT DIPSTICK RESULTS. GLUCOSE, UR Normal mg/dL (Normal) CLARITY Cloudy (Normal) COLOR Yellow (Normal) 81-Grt-049265:55 URINE KRISTINA CULTURE-IDENTIFICATN Comments: PATIENT NOT FASTINGPERFORMED BY: [facility] Dinbkv1623 [facility] [id number] Information: SRC: ([id number]) Result 1 MUG (Normal) Comments: Mixed urogenital flora25,000-50,000 colony forming units per mL Urine Final report (Normal) Culture,Comprehensive 55-Aza-736806:29 PT (Prothrobim Time) (47335) Comments: PATIENT NOT FASTINGPERFORMED BY: [facility] Cjqxbk9577 [facility] [id number] Prothrombin Time 28.5 {sec} (Abnormal) Range: 9.1-12.0 INR 2.8 (Abnormal) Range: 0.8-1.2 Comments: Reference interval is for non-anticoagulated patients. . Suggested INR therapeutic range for Vitamin K anta gonist therapy: Standard Dose (moderate intensity therapeutic range): 2.0 - 3.0 Higher intensity therapeutic range 2.5 - 3.5 36-Ytt-005574:44 Urinalysis, Office (22163) UA - LEUKOCYTE ESTERASE Trace (Normal) UA - NITRITE Negative (Normal) URINE UROBILINGN AGNES TIMED Normal mg/dL (Normal) UA - PROTEIN 100 mg/dL (Normal) UA - PH 6 (Abnormal) UA - BLOOD Hemolyzed Large (Normal) UA - SPECIFIC GRAVITY 1.025 (Normal) UA - KETONES Small mg/dL (Normal) UA - BILIRUBIN Small (Normal) UA - GLUCOSE Negative (Normal) 50-Hhy-459098:23 INR Fingerstick Comments: [facility] [place] [address] [place] [address] INR ISTAT 2.80 (Normal) Comments: Critical Value > 3.5; ADDENDA: managed by cardio 49-Plk-350996:23 Prothrombin Time Fingerstick Comments: [place] [address] [place] [address] PROTIME ISTAT 32.1 {SEC} (Abnormal) Range: 11.9-14.4 Comments: Reference Range 11.9 - 14.4 9-Aco-348770:30 INR Fingerstick Comments: [place] [address] [place] [address] INR ISTAT 3.30 (Normal) Comments: Critical Value > 3.5 :30 Prothrombin Time Fingerstick Comments: [place] [address] [place] [address] PROTIME ISTAT 37.8 {SEC} (Abnormal) Range: 11.9-14.4 Comments: Reference Range 11.9 - 14.4 2-Jvo-325934:17 CBC W/AUTO DIFF WBC (46707) Comments: PATIENT WAS FASTINGPERFORMED BY: [facility] [id number] [facility] [id number] Immature Grans (Abs) 0.0 {x10E3/uL} (Normal) Range: 0.0-0.1 Immature Granulocytes 0 % (Normal) Baso (Absolute) 0.1 {x10E3/uL} (Normal) Range: 0.0-0.2 Eos (Absolute) 0.3 {x10E3/uL} (Normal) Range: 0.0-0.4 Monocytes(Absolute) 0.7 {x10E3/uL} (Normal) Range: 0.1-0.9 Lymphs (Absolute) 3.9 {x10E3/uL} (Abnormal) Range: 0.7-3.1 Neutrophils (Absolute) 3.6 {x10E3/uL} (Normal) Range: 1.4-7.0 Basos 1 % (Normal) Eos 3 % (Normal) Monocytes 8 % (Normal) Lymphs 46 % (Normal) Neutrophils 42 % (Normal) Platelets 265 {x10E3/uL} (Normal) Range: 150-379 RDW 14.3 % (Normal) Range: 12.3-15.4 MCHC 31.6 g/dL (Normal) Range: 31.5-35.7 MCH 30.1 pg (Normal) Range: 26.6-33.0 MCV 95 fL (Normal) Range: 79-97 Hematocrit 38.3 % (Normal) Range: 34.0-46.6 Hemoglobin 12.1 g/dL (Normal) Range: 11.1-15.9 RBC 4.02 {x10E6/uL} (Normal) Range: 3.77-5.28 WBC 8.7 {x10E3/uL} (Normal) Range: 3.4-10.8 9-Ttt-546318:17 METABOLIC PANEL, COMPREHENSIVE Comments: PATIENT WAS FASTINGPERFORMED BY: [facility] CenterMmlwvl1005 [facility] [id number]; non- emergent till apt (88067) ALT (SGPT) 18 [iU]/L (Normal) Range: 0-32 AST (SGOT) 22 [iU]/L (Normal) Range: 0-40 Alkaline Phosphatase, S 39 [iU]/L (Normal) Range: 39-117 Bilirubin, Total 0.7 mg/dL (Normal) Range: 0.0-1.2 A/G Ratio 1.6 (Normal) Range: 1.2-2.2 Globulin, Total 2.5 g/dL (Normal) Range: 1.5-4.5 Albumin, Serum 4.0 g/dL (Normal) Range: 3.5-4.8 Protein, Total, Serum 6.5 g/dL (Normal) Range: 6.0-8.5 Calcium, Serum 9.1 mg/dL (Normal) Range: 8.7-10.3 Carbon Dioxide, Total 23 mmol/L (Normal) Range: 18-29 Chloride, Serum 100 mmol/L (Normal) Range: 96-106 Potassium, Serum 4.4 mmol/L (Normal) Range: 3.5-5.2 Sodium, Serum 141 mmol/L (Normal) Range: 134-144 BUN/Creatinine Ratio 28 (Normal) Range: 12-28 eGFR If Africn Am 98 mL/min/1.73 (Normal) eGFR If NonAfricn Am 85 mL/min/1.73 (Normal) Creatinine, Serum 0.68 mg/dL (Normal) Range: 0.57-1.00 BUN 19 mg/dL (Normal) Range: 8-27 Glucose, Serum 110 mg/dL (Abnormal) Range: 65-99 2-Uys-375088:17 TSH (48888) Comments: PATIENT WAS FASTINGPERFORMED BY: [facility] Dbnzhj9207 [facility] [id number] TSH 1.190 {uIU/mL} (Normal) Range: 0.450-4.500 0-Ohq-237464:17 LIPID PANEL (46990) Comments: PATIENT WAS FASTINGPERFORMED BY: [facility] [id number] [facility] [id number] LDL/HDL Ratio 0.7 {ratio_units} (Normal) Range: 0.0-3.2 Comments: LDL/HDL Ratio Men Women 1/2 Avg.Risk 1.0 1.5 Av g.Risk 3.6 3.2 2X Avg.Risk 6.2 5.0 3X Avg.Risk 8.0 6.1 LDL Cholesterol Calc 36 mg/dL (Normal) Range: 0-99 VLDL Cholesterol Drew 18 mg/dL (Normal) Range: 5-40 HDL Cholesterol 54 mg/dL (Normal) Triglycerides 91 mg/dL (Normal) Range: 0-149 Cholesterol, Total 108 mg/dL (Normal) Range: 100-199 0-Cxm-247237:46 INR Fingerstick Comments: [facility] [place] [address] [place] [address] INR ISTAT 1.90 (Normal) Comments: Critical Value > 3.5; ADDENDA: cardio manages 7-Xnr-568980:46 Prothrombin Time Fingerstick Comments: [facility] [place] [address] [place] [address] PROTIME ISTAT 22.4 {SEC} (Abnormal) Range: 11.9-14.4 Comments: Reference Range 11.9 - 14.4 19-Yxi-063333:56 INR Fingerstick Comments: [facility] [place] [address] [place] [address] INR ISTAT 2.20 (Normal) Comments: Critical Value > 3.5 :56 Prothrombin Time Fingerstick Comments: [facility] [place] [address] [place] [address] PROTIME ISTAT 25.9 {SEC} (Abnormal) Range: 11.9-14.4 Comments: Reference Range 11.9 - 14.4 :54 INR Fingerstick Comments: [facility] [place] [address] [place] [address] INR ISTAT 1.80 (Normal) Comments: Critical Value > 3.5; ADDENDA: handled by cardio :54 Prothrombin Time Fingerstick Comments: [facility] [place] [address] [place] [address] PROTIME ISTAT 21.4 {SEC} (Abnormal) Range: 11.9-14.4 Comments: Reference Range 11.9 - 14.4 19-Uyg-712776:04 LIPID PANEL (38457) Comments: PATIENT WAS FASTINGPERFORMED BY: [facility] [id number] LDL/HDL Ratio 0.9 {ratio_units} (Normal) Range: 0.0-3.2 Comments: LDL/HDL Ratio Men Women 1/2 Avg.Risk 1.0 1.5 Av g.Risk 3.6 3.2 2X Avg.Risk 6.2 5.0 3X Avg.Risk 8.0 6.1 LDL Cholesterol Calc 43 mg/dL (Normal) Range: 0-99 VLDL Cholesterol Drew 19 mg/dL (Normal) Range: 5-40 HDL Cholesterol 50 mg/dL (Normal) Triglycerides 96 mg/dL (Normal) Range: 0-149 Cholesterol, Total 112 mg/dL (Normal) Range: 100-199 95-Xov-439677:04 CBC with auto diff (49173) Comments: PATIENT WAS FASTINGPERFORMED BY: [facility] Amvfks9177 [place] [id number] Immature Grans (Abs) 0.0 {x10E3/uL} (Normal) Range: 0.0-0.1 Immature Granulocytes 0 % (Normal) Baso (Absolute) 0.1 {x10E3/uL} (Normal) Range: 0.0-0.2 Eos (Absolute) 0.5 {x10E3/uL} (Abnormal) Range: 0.0-0.4 Monocytes(Absolute) 0.7 {x10E3/uL} (Normal) Range: 0.1-0.9 Lymphs (Absolute) 3.0 {x10E3/uL} (Normal) Range: 0.7-3.1 Neutrophils (Absolute) 3.5 {x10E3/uL} (Normal) Range: 1.4-7.0 Basos 1 % (Normal) Eos 6 % (Normal) Monocytes 9 % (Normal) Lymphs 39 % (Normal) Neutrophils 45 % (Normal) Platelets 251 {x10E3/uL} (Normal) Range: 150-379 RDW 14.0 % (Normal) Range: 12.3-15.4 MCHC 32.7 g/dL (Normal) Range: 31.5-35.7 MCH 30.3 pg (Normal) Range: 26.6-33.0 MCV 93 fL (Normal) Range: 79-97 Hematocrit 37.0 % (Normal) Range: 34.0-46.6 Hemoglobin 12.1 g/dL (Normal) Range: 11.1-15.9 RBC 4.00 {x10E6/uL} (Normal) Range: 3.77-5.28 WBC 7.7 {x10E3/uL} (Normal) Range: 3.4-10.8 51-Plw-948632:04 METABOLIC PANEL, COMPREHENSIVE Comments: PATIENT WAS FASTINGPERFORMED BY: [facility] CenterBhchbn7521 [facility] [id number] ([id number]) ALT (SGPT) 19 [iU]/L (Normal) Range: 0-32 AST (SGOT) 20 [iU]/L (Normal) Range: 0-40 Alkaline Phosphatase, S 40 [iU]/L (Normal) Range: 39-117 Bilirubin, Total 0.7 mg/dL (Normal) Range: 0.0-1.2 A/G Ratio 1.7 (Normal) Range: 1.1-2.5 Globulin, Total 2.3 g/dL (Normal) Range: 1.5-4.5 Albumin, Serum 3.9 g/dL (Normal) Range: 3.5-4.8 Protein, Total, Serum 6.2 g/dL (Normal) Range: 6.0-8.5 Calcium, Serum 8.9 mg/dL (Normal) Range: 8.7-10.3 Carbon Dioxide, Total 24 mmol/L (Normal) Range: 18-29 Chloride, Serum 103 mmol/L (Normal) Range: 96-106 Potassium, Serum 4.6 mmol/L (Normal) Range: 3.5-5.2 Sodium, Serum 140 mmol/L (Normal) Range: 134-144 BUN/Creatinine Ratio 35 (Abnormal) Range: 11-26 eGFR If Africn Am 98 mL/min/1.73 (Normal) eGFR If NonAfricn Am 85 mL/min/1.73 (Normal) Creatinine, Serum 0.68 mg/dL (Normal) Range: 0.57-1.00 BUN 24 mg/dL (Normal) Range: 8-27 Glucose, Serum 104 mg/dL (Abnormal) Range: 65-99 34-Voe-698969:04 MICROALBUMIN: CREATININE RATIO Comments: PATIENT WAS FASTINGPERFORMED BY: [employer] [facility] [id number] ([id number]) AND (04557) Microalb/Creat Ratio 6.2 {mg/g_creat} (Normal) Range: 0.0-30.0 Microalbumin, Urine 4.0 ug/mL (Normal) Creatinine, Urine 64.3 mg/dL (Normal) 54-Gjl-131064:04 HGB A1C ([id number]) Comments: PATIENT WAS FASTINGPERFORMED BY: [employer] [id number] [facility] [id number] Hemoglobin A1c 6.4 % (Abnormal) Range: 4.8-5.6 Comments: . Pre-diabetes: 5.7 - 6.4 Diabetes: >6.4 Glycemic control for adults with diabetes: <7.0 50-Jbp-523426:04 LOUANN (ANTINUCLEAR ANTIBODY) Comments: PATIENT WAS FASTINGPERFORMED BY: [employer] [id number] [facility] [id number] ([id number]) LOUANN Direct Negative (Normal) 91-Iud-665874:04 RHEUMATOID FACTOR-QUANT ([id number]) Comments: PATIENT WAS FASTINGPERFORMED BY: [facility] [id number] [address] RoadDublin [place] [id number] RA Latex Turbid. <10.0 {IU/mL} (Normal) Range: 0.0-13.9 :04 C-REACTIVE PROTEIN ([id number]) Comments: PATIENT WAS FASTINGPERFORMED BY: [facility] [id number] [facility] [place] [id number] C-Reactive Protein, Quant 0.4 mg/L (Normal) Range: 0.0-4.9 :04 SED RATE ERYTHROCYTE ([id number]) Comments: PATIENT WAS FASTINGPERFORMED BY: [facility] [id number] [facility] [id number] [facility] mm/h (Normal) Range: 0-40 0-Voc-097975:23 INR Fingerstick Comments: [facility] [place] [address] [place] [address] INR ISTAT 2.50 (Normal) Comments: Critical Value > 3.5 :23 Prothrombin Time Fingerstick Comments: [place] [address] [place] [address] PROTIME ISTAT 28.8 {SEC} (Abnormal) Range: 11.9-14.4 Comments: Reference Range 11.9 - 14.4 2-Igv-074565:15 INR Fingerstick Comments: [place] [address] [place] [address] INR ISTAT 2.50 (Normal) Comments: Critical Value > 3.5; ADDENDA: cardio manages :15 Prothrombin Time Fingerstick Comments: [place] [address] [place] [address] PROTIME ISTAT 28.8 {SEC} (Abnormal) Range: 11.9-14.4 Comments: Reference Range 11.9 - 14.4 05-Zjv-513796:30 INR Fingerstick Comments: [facility] [place] [address] [place] [address] INR ISTAT 1.80 (Normal) Comments: Critical Value > 3.5; ADDENDA: cardio handles 65-Gdl-133651:30 Prothrombin Time Fingerstick Comments: [facility] [place] [address] [place] [address] PROTIME ISTAT 20.9 {SEC} (Abnormal) Range: 11.9-14.4 Comments: Reference Range 11.9 - 14.4 8-Xqu-356266:08 INR Fingerstick Comments: [facility] [place] [address] [place] [address] INR ISTAT 1.80 (Normal) Comments: Critical Value > 3.5; ADDENDA: cardio manages her INR's 9-Uah-652275:08 Prothrombin Time Fingerstick Comments: [place] [address] [place], [place] [id number] PROTIME ISTAT 21.2 {SEC} (Abnormal) Range: 11.9-14.4 Comments: Reference Range 11.9 - 14.4 :55 CBC with auto diff Comments: PATIENT NOT FASTINGPERFORMED BY: [facility] Vxoxyz6411 [facility] [id number] Information: NURSE DRAW ([id number]) Immature Grans (Abs) 0.0 {x10E3/uL} (Normal) Range: 0.0-0.1 Immature Granulocytes 0 % (Normal) Baso (Absolute) 0.1 {x10E3/uL} (Normal) Range: 0.0-0.2 Eos (Absolute) 0.6 {x10E3/uL} (Abnormal) Range: 0.0-0.4 Monocytes(Absolute) 0.7 {x10E3/uL} (Normal) Range: 0.1-0.9 Lymphs (Absolute) 3.8 {x10E3/uL} (Abnormal) Range: 0.7-3.1 Neutrophils (Absolute) 3.7 {x10E3/uL} (Normal) Range: 1.4-7.0 Basos 2 % (Normal) Eos 7 % (Normal) Monocytes 8 % (Normal) Lymphs 42 % (Normal) Neutrophils 41 % (Normal) Platelets 250 {x10E3/uL} (Normal) Range: 150-379 RDW 14.0 % (Normal) Range: 12.3-15.4 MCHC 32.4 g/dL (Normal) Range: 31.5-35.7 MCH 30.3 pg (Normal) Range: 26.6-33.0 MCV 94 fL (Normal) Range: 79-97 Hematocrit 38.6 % (Normal) Range: 34.0-46.6 Hemoglobin 12.5 g/dL (Normal) Range: 11.1-15.9 RBC 4.12 {x10E6/uL} (Normal) Range: 3.77-5.28 WBC 8.9 {x10E3/uL} (Normal) Range: 3.4-10.8 7-Lnb-986928:55 METABOLIC PANEL, COMPREHENSIVE Comments: PATIENT NOT FASTINGPERFORMED BY: [facility] CenterDdumfu1942 [facility] [id number]; non- emergent till apt ([id number]) ALT (SGPT) 17 [iU]/L (Normal) Range: 0-32 AST (SGOT) 22 [iU]/L (Normal) Range: 0-40 Alkaline Phosphatase, S 43 [iU]/L (Normal) Range: 39-117 Bilirubin, Total 0.6 mg/dL (Normal) Range: 0.0-1.2 A/G Ratio 1.8 (Normal) Range: 1.1-2.5 Globulin, Total 2.4 g/dL (Normal) Range: 1.5-4.5 Albumin, Serum 4.2 g/dL (Normal) Range: 3.5-4.8 Protein, Total, Serum 6.6 g/dL (Normal) Range: 6.0-8.5 Calcium, Serum 9.1 mg/dL (Normal) Range: 8.7-10.3 Carbon Dioxide, Total 23 mmol/L (Normal) Range: 18-29 Chloride, Serum 100 mmol/L (Normal) Range: 97-108 Comments: Effective April 19, 2016 the reference interval for Chloride, Serum will be changing to: 97 - 106 Potassium, Serum 4.5 mmol/L (Normal) Range: 3.5-5.2 Comments: Effective April 19, 2016 the reference interval for Potassium, Serum will be changing to: 0 - 7 days 3.7 - 5.2 8 - 30 days 3.7 - 6.4 1 - 6 months 3.8 - 6.0 7 months - 1 year 3.8 - 5.3 >1 year 3.5 - 5.2 Sodium, Serum 142 mmol/L (Normal) Range: 134-144 Comments: Effective April 19, 2016 the reference interval for Sodium, Serum will be changing to: 136 - 144 BUN/Creatinine Ratio 34 (Abnormal) Range: 11-26 eGFR If Africn Am 100 mL/min/1.73 (Normal) eGFR If NonAfricn Am 87 mL/min/1.73 (Normal) Creatinine, Serum 0.65 mg/dL (Normal) Range: 0.57-1.00 BUN 22 mg/dL (Normal) Range: 8-27 Glucose, Serum 123 mg/dL (Abnormal) Range: 65-99 3-Cpm-069799:55 MICROALBUMIN: CREATININE RATIO Comments: PATIENT NOT FASTINGPERFORMED BY: [facility] CenterLouclv8340 [facility] [id number] ([id number]) AND (83592) Microalb/Creat Ratio <6.1 {mg/g_creat} (Normal) Range: 0.0-30.0 Microalbumin, Urine <3.0 ug/mL (Normal) Creatinine, Urine 48.8 mg/dL (Normal) 20-Ziz-176695:25 HgA1C , Office (73233) HgA1C , Office 6.2 % (Normal) Range: 4.6 - 7.1 4-Ffl-820961:39 INR Fingerstick Comments: [facility] [place] [address] [place] [address] INR ISTAT 2.10 (Normal) Comments: Critical Value > 3.5; ADDENDA: INR are managed by cardio :39 Prothrombin Time Fingerstick Comments: [place] [address] [place] [address] PROTIME ISTAT 24.2 {SEC} (Abnormal) Range: 11.9-14.4 Comments: Reference Range 11.9 - 14.4 53-Jga-428291:03 INR Fingerstick Comments: [place] [address] [place], [place] [phone] INR ISTAT 1.70 (Normal) Comments: Critical Value > 3.5 :03 Prothrombin Time Fingerstick Comments: [place] [address] [place] [address] PROTIME ISTAT 19.6 {SEC} (Abnormal) Range: 11.9-14.4 Comments: Reference Range 11.9 - 14.4 27-Mpb-025921:00 INR Fingerstick Comments: [place] [address] [place] [address] INR ISTAT 3.40 (Normal) Comments: Critical Value > 3.5; ADDENDA: cardio aware of her INR 11-Wbg-806638:00 Prothrombin Time Fingerstick Comments: [place] [address] [place] [address] PROTIME ISTAT 38.5 {SEC} (Abnormal) Range: 11.9-14.4 Comments: Reference Range 11.9 - 14.4 06-Ydq-452584:02 Prothrombin Time w/INR Comments: Result obtained is for confirmation testing ofFingerstick PT/INR Specimen # [id number] . 12/15/15 1108 VSICKTHIS CONFIRMATION SPECIMEN RESULT IS FROM VENOUS BLOOD.[place] [address] [place], [address](251) INR 3.3 (Normal) Comments: ADDENDA: left detailed message with [facility] nurse line to make sure was addressed by them PROTIME 32.7 s (Abnormal) Range: 11.7-14.9 81-Ekv-033413:48 INR Fingerstick Comments: [place] [address] [place] [phone] INR ISTAT 3.90 (Abnormal) Comments: Critical Value > 3.5 :48 Prothrombin Time Fingerstick Comments: [facility] [place] [address] [place] [address] PROTIME ISTAT 44.3 {SEC} (Abnormal) Range: 11.9-14.4 Comments: Reference Range 11.9 - 14.4 :42 INR Fingerstick Comments: [facility] [place] [address] [place] [address] INR ISTAT 2.50 (Normal) Comments: Critical Value > 3.5 :42 Prothrombin Time Fingerstick Comments: [facility] [place] [address] [place] [address] PROTIME ISTAT 28.9 {SEC} (Abnormal) Range: 11.9-14.4 Comments: Reference Range 11.9 - 14.4 75-Tcw-898847:26 INR Fingerstick Comments: [facility] [place] [address] [place] [address] INR ISTAT 3.00 (Normal) Comments: Critical Value > 3.5; ADDENDA: handled by cardio 06-Llb-244172:26 Prothrombin Time Fingerstick Comments: [place] [address] [place] [address] PROTIME ISTAT 34.4 {SEC} (Abnormal) Range: 11.9-14.4 Comments: Reference Range 11.9 - 14.4 :54 INR Fingerstick Comments: [facility] [place] [address] [place] [address] INR ISTAT 1.70 (Normal) Comments: Critical Value > 3.5; ADDENDA: handled by shey :54 Prothrombin Time Fingerstick Comments: [facility] [place] [address] [place] [address] PROTIME ISTAT 20.0 {SEC} (Abnormal) Range: 11.9-14.4 Comments: Reference Range 11.9 - 14.4 :39 CBC W/AUTO DIFF WBC Comments: PATIENT WAS FASTINGPERFORMED BY: [facility] [id number] Information: [id number] 1 (72771) Immature Grans (Abs) 0.0 {x10E3/uL} (Normal) Range: 0.0-0.1 Immature Granulocytes 0 % (Normal) Baso (Absolute) 0.1 {x10E3/uL} (Normal) Range: 0.0-0.2 Eos (Absolute) 1.0 {x10E3/uL} (Abnormal) Range: 0.0-0.4 Monocytes(Absolute) 0.5 {x10E3/uL} (Normal) Range: 0.1-0.9 Lymphs (Absolute) 3.4 {x10E3/uL} (Abnormal) Range: 0.7-3.1 Neutrophils (Absolute) 3.3 {x10E3/uL} (Normal) Range: 1.4-7.0 Basos 1 % (Normal) Eos 12 % (Normal) Monocytes 6 % (Normal) Lymphs 41 % (Normal) Neutrophils 40 % (Normal) Platelets 244 {x10E3/uL} (Normal) Range: 150-379 RDW 14.4 % (Normal) Range: 12.3-15.4 MCHC 33.3 g/dL (Normal) Range: 31.5-35.7 MCH 30.6 pg (Normal) Range: 26.6-33.0 MCV 92 fL (Normal) Range: 79-97 Hematocrit 35.7 % (Normal) Range: 34.0-46.6 Hemoglobin 11.9 g/dL (Normal) Range: 11.1-15.9 RBC 3.89 {x10E6/uL} (Normal) Range: 3.77-5.28 WBC 8.3 {x10E3/uL} (Normal) Range: 3.4-10.8 :39 METABOLIC PANEL, COMPREHENSIVE Comments: PATIENT WAS FASTINGPERFORMED BY: [facility] [id number] (90041) ALT (SGPT) 16 [iU]/L (Normal) Range: 0-32 AST (SGOT) 23 [iU]/L (Normal) Range: 0-40 Alkaline Phosphatase, S 41 [iU]/L (Normal) Range: 39-117 Bilirubin, Total 0.7 mg/dL (Normal) Range: 0.0-1.2 A/G Ratio 1.7 (Normal) Range: 1.1-2.5 Globulin, Total 2.3 g/dL (Normal) Range: 1.5-4.5 Albumin, Serum 3.9 g/dL (Normal) Range: 3.5-4.8 Protein, Total, Serum 6.2 g/dL (Normal) Range: 6.0-8.5 Calcium, Serum 9.1 mg/dL (Normal) Range: 8.7-10.3 Carbon Dioxide, Total 24 mmol/L (Normal) Range: 18-29 Chloride, Serum 103 mmol/L (Normal) Range: 97-108 Potassium, Serum 4.5 mmol/L (Normal) Range: 3.5-5.2 Sodium, Serum 141 mmol/L (Normal) Range: 134-144 BUN/Creatinine Ratio 32 (Abnormal) Range: 11-26 eGFR If Africn Am 104 mL/min/1.73 (Normal) eGFR If NonAfricn Am 90 mL/min/1.73 (Normal) Creatinine, Serum 0.59 mg/dL (Normal) Range: 0.57-1.00 BUN 19 mg/dL (Normal) Range: 8-27 Glucose, Serum 100 mg/dL (Abnormal) Range: 65-99 70-Vjd-538753:39 LIPID PANEL (14517) Comments: PATIENT WAS FASTINGPERFORMED BY: [facility] CenterVqfojh6337 [facility] [id number] LDL/HDL Ratio 0.6 {ratio_units} (Normal) Range: 0.0-3.2 Comments: LDL/HDL Ratio Men Women 1/2 Avg.Risk 1.0 1.5 Av g.Risk 3.6 3.2 2X Avg.Risk 6.2 5.0 3X Avg.Risk 8.0 6.1 LDL Cholesterol Calc 33 mg/dL (Normal) Range: 0-99 VLDL Cholesterol Drew 22 mg/dL (Normal) Range: 5-40 HDL Cholesterol 57 mg/dL (Normal) Comments: According to ATP-III Guidelines, HDL-C >59 mg/dL is considered anegative risk factor for CHD. Triglycerides 108 mg/dL (Normal) Range: 0-149 Cholesterol, Total 112 mg/dL (Normal) Range: 100-199 :39 TSH (29221) Comments: PATIENT WAS FASTINGPERFORMED BY: [facility]Co[facility] CenterEhgqdk5779 [facility] [id number] TSH 1.210 {uIU/mL} (Normal) Range: 0.450-4.500 16-Gff-300729:54 HgA1C , Office (23399) HgA1C , Office 6.4 % (Normal) Range: 4.6 - 7.1 :58 INR Fingerstick Comments: [facility] [place] [address] [place] [address] INR ISTAT 2.50 (Normal) Comments: Critical Value > 3.5 :58 Prothrombin Time Fingerstick Comments: [place] [address] [place] [address] PROTIME ISTAT 29.2 {SEC} (Abnormal) Range: 11.9-14.4 Comments: Reference Range 11.9 - 14.4 :19 Prothrombin Time w/INR Comments: [place] [address] [place], [address] INR 2.9 (Normal) Comments: ADDENDA: handled by cardio PROTIME 30.0 s (Abnormal) Range: 11.7-14.9 :46 INR Fingerstick Comments: [facility] [place] [address] [place] [address](580) INR ISTAT 1.40 (Normal) Comments: Critical Value > 3.5 :46 Prothrombin Time Fingerstick Comments: [place] [address] [place] [address] PROTIME ISTAT 16.5 {SEC} (Abnormal) Range: 11.9-14.4 Comments: Reference Range 11.9 - 14.4; ADDENDA: handled by cardio 0-Vwy-218827:14 INR Fingerstick Comments: [facility] [address] [place] [address] INR ISTAT 3.50 (Normal) Comments: Critical Value > 3.5 0-Gyk-981615:14 Prothrombin Time Fingerstick Comments: [facility] [address] [place] [address] PROTIME ISTAT 39.1 {SEC} (Abnormal) Range: 11.9-14.4 Comments: Reference Range 11.9 - 14.4 93-Ofc-888091:29 CBC W/AUTO DIFF WBC Comments: PATIENT WAS FASTINGPERFORMED BY: [facility] Shyopi0561 [facility] [id number] Information: [id number] (53019) Immature Grans (Abs) 0.0 {x10E3/uL} (Normal) Range: 0.0-0.1 Immature Granulocytes 0 % (Normal) Baso (Absolute) 0.1 {x10E3/uL} (Normal) Range: 0.0-0.2 Eos (Absolute) 0.4 {x10E3/uL} (Normal) Range: 0.0-0.4 Monocytes(Absolute) 0.7 {x10E3/uL} (Normal) Range: 0.1-0.9 Lymphs (Absolute) 3.4 {x10E3/uL} (Abnormal) Range: 0.7-3.1 Neutrophils (Absolute) 3.4 {x10E3/uL} (Normal) Range: 1.4-7.0 Basos 1 % (Normal) Eos 5 % (Normal) Monocytes 9 % (Normal) Lymphs 43 % (Normal) Neutrophils 42 % (Normal) Platelets 271 {x10E3/uL} (Normal) Range: 150-379 RDW 14.1 % (Normal) Range: 12.3-15.4 MCHC 32.2 g/dL (Normal) Range: 31.5-35.7 MCH 30.2 pg (Normal) Range: 26.6-33.0 MCV 94 fL (Normal) Range: 79-97 Hematocrit 39.5 % (Normal) Range: 34.0-46.6 Hemoglobin 12.7 g/dL (Normal) Range: 11.1-15.9 RBC 4.20 {x10E6/uL} (Normal) Range: 3.77-5.28 WBC 8.1 {x10E3/uL} (Normal) Range: 3.4-10.8 :29 LIPID PANEL (46607) Comments: PATIENT WAS FASTINGPERFORMED BY: [facility] ATM ServicesMeadowlands Hospital Medical CenterGaevnu3661 [facility] [id number] LDL/HDL Ratio 0.8 {ratio_units} (Normal) Range: 0.0-3.2 Comments: LDL/HDL Ratio Men Women 1/2 Avg.Risk 1.0 1.5 Av g.Risk 3.6 3.2 2X Avg.Risk 6.2 5.0 3X Avg.Risk 8.0 6.1 LDL Cholesterol Calc 43 mg/dL (Normal) Range: 0-99 VLDL Cholesterol Drew 21 mg/dL (Normal) Range: 5-40 HDL Cholesterol 54 mg/dL (Normal) Comments: According to ATP-III Guidelines, HDL-C >59 mg/dL is considered anegative risk factor for CHD. Triglycerides 107 mg/dL (Normal) Range: 0-149 Cholesterol, Total 118 mg/dL (Normal) Range: 100-199 :29 TSH (70652) Comments: PATIENT WAS FASTINGPERFORMED BY: [facility] ATM ServicesMeadowlands Hospital Medical CenterYpnrva4508 [facility] [id number] TSH 1.780 {uIU/mL} (Normal) Range: 0.450-4.500 :29 METABOLIC PANEL, COMPREHENSIVE Comments: PATIENT WAS FASTINGPERFORMED BY: [facility] ATM ServicesMeadowlands Hospital Medical CenterMvxsic2892 [facility] [id number] (99592) ALT (SGPT) 16 [iU]/L (Normal) Range: 0-32 AST (SGOT) 20 [iU]/L (Normal) Range: 0-40 Alkaline Phosphatase, S 42 [iU]/L (Normal) Range: 39-117 Bilirubin, Total 0.7 mg/dL (Normal) Range: 0.0-1.2 A/G Ratio 1.8 (Normal) Range: 1.1-2.5 Globulin, Total 2.3 g/dL (Normal) Range: 1.5-4.5 Albumin, Serum 4.1 g/dL (Normal) Range: 3.5-4.8 Protein, Total, Serum 6.4 g/dL (Normal) Range: 6.0-8.5 Calcium, Serum 9.0 mg/dL (Normal) Range: 8.7-10.3 Carbon Dioxide, Total 22 mmol/L (Normal) Range: 18-29 Chloride, Serum 105 mmol/L (Normal) Range: 97-108 Potassium, Serum 4.6 mmol/L (Normal) Range: 3.5-5.2 Sodium, Serum 144 mmol/L (Normal) Range: 134-144 BUN/Creatinine Ratio 41 (Abnormal) Range: 11-26 eGFR If Africn Am 96 mL/min/1.73 (Normal) eGFR If NonAfricn Am 84 mL/min/1.73 (Normal) Creatinine, Serum 0.71 mg/dL (Normal) Range: 0.57-1.00 BUN 29 mg/dL (Abnormal) Range: 8-27 Comments: ADDENDA: non-emergent till apt, last bun was 29 Glucose, Serum 110 mg/dL (Abnormal) Range: 65-99 01-Ohw-417948:29 MICROALBUMIN: CREATININE RATIO Comments: PATIENT WAS FASTINGPERFORMED BY: [employer] Qormuy7174 [facility] [id number] ([id number]) AND (47098) Microalb/Creat Ratio 21.5 {mg/g_creat} (Normal) Range: 0.0-30.0 Microalbumin, Urine 29.6 ug/mL (Abnormal) Range: 0.0-17.0 Creatinine, Urine 137.4 mg/dL (Normal) Range: 15.0-278.0 53-Lwo-708148:29 Hemoglobin Glyclated (HGB A1C) Comments: PATIENT WAS FASTINGPERFORMED BY: [facility] DigitalMeadowlands Hospital Medical CenterVyptdj8726 [facility] [id number] (40487) Hemoglobin A1c 6.2 % (Abnormal) Range: 4.8-5.6 Comments: . Pre-diabetes: 5.7 - 6.4 Diabetes: >6.4 Glycemic control for adults with diabetes: <7.0 53-Qug-906071:39 INR Fingerstick Comments: [facility] [address] [place], [id number] INR ISTAT 3.20 (Normal) Comments: Critical Value > 3.5 73-Daq-251938:39 Prothrombin Time Fingerstick Comments: [facility] [address] [place], [address] PROTIME ISTAT 36.2 {SEC} (Abnormal) Range: 11.9-14.4 Comments: Reference Range 11.9 - 14.4 72-Uty-189096:55 Prothrombin Time w/INR Comments: Test performed at:[facility] [address] [place], [place] [address] INR 2.0 (Normal) PROTIME 23.1 s (Abnormal) Range: 11.7-14.9 86-Xzm-265085:32 Prothrombin Time w/INR Comments: Test performed at:[facility] [address] [place], [place] [address] ; managed by [facility] INR 3.1 (Normal) PROTIME 31.4 s (Abnormal) Range: 11.7-14.9 4-Stp-084269:15 INR Fingerstick Comments: Test performed at:[facility] [address] [place], [place] [address] INR ISTAT 2.80 (Normal) Comments: Critical Value > 3.5; ADDENDA: cardio handles 8-Zay-618503:15 Prothrombin Time Fingerstick Comments: Test performed at:[facility] [address] [place] [address] PROTIME ISTAT 31.9 {SEC} (Abnormal) Range: 11.9-14.4 Comments: Reference Range 11.9 - 14.4 55-Bon-881052:27 METABOLIC PANEL, Comments: PATIENT WAS FASTINGPERFORMED BY: [facility] Zoilqh6701 [facility] [id number] Information: [id number] [facility] (98140) ALT (SGPT) 18 [iU]/L (Normal) Range: 0-32 AST (SGOT) 22 [iU]/L (Normal) Range: 0-40 Alkaline Phosphatase, S 37 [iU]/L (Abnormal) Range: 39-117 Bilirubin, Total 0.7 mg/dL (Normal) Range: 0.0-1.2 A/G Ratio 1.9 (Normal) Range: 1.1-2.5 Globulin, Total 2.1 g/dL (Normal) Range: 1.5-4.5 Albumin, Serum 4.0 g/dL (Normal) Range: 3.5-4.8 Protein, Total, Serum 6.1 g/dL (Normal) Range: 6.0-8.5 Calcium, Serum 8.7 mg/dL (Normal) Range: 8.7-10.3 Carbon Dioxide, Total 22 mmol/L (Normal) Range: 18-29 Chloride, Serum 103 mmol/L (Normal) Range: 97-108 Potassium, Serum 4.1 mmol/L (Normal) Range: 3.5-5.2 Sodium, Serum 141 mmol/L (Normal) Range: 134-144 BUN/Creatinine Ratio 48 (Abnormal) Range: 11-26 eGFR If Africn Am 103 mL/min/1.73 (Normal) eGFR If NonAfricn Am 90 mL/min/1.73 (Normal) Creatinine, Serum 0.61 mg/dL (Normal) Range: 0.57-1.00 BUN 29 mg/dL (Abnormal) Range: 8-27 Glucose, Serum 106 mg/dL (Abnormal) Range: 65-99 82-Pzx-429921:27 LIPID PANEL (99784) Comments: PATIENT WAS FASTINGPERFORMED BY: [facility]CoM[facility] Medical CenterYppnxy4500 [facility] [id number] LDL/HDL Ratio 0.8 {ratio_units} (Normal) Range: 0.0-3.2 Comments: LDL/HDL Ratio Men Women 1/2 Avg.Risk 1.0 1.5 Av g.Risk 3.6 3.2 2X Avg.Risk 6.2 5.0 3X Avg.Risk 8.0 6.1 LDL Cholesterol Calc 43 mg/dL (Normal) Range: 0-99 Comments: Effective April 28, 2015 the reference interval for LDL Cholesterol Calc will be changing to: 0 - 19 years 0 - 109 >19 years 0 - 99 VLDL Cholesterol Drew 15 mg/dL (Normal) Range: 5-40 HDL Cholesterol 51 mg/dL (Normal) Comments: According to ATP-III Guidelines, HDL-C >59 mg/dL is considered anegative risk factor for CHD. Triglycerides 77 mg/dL (Normal) Range: 0-149 Comments: Effective April 28, 2015 the reference interval for Triglycerides will be changing to: 0 - 9 years 0 - 74 10 - 19 years 0 - 89 >19 years 0 - 149 Cholesterol, Total 109 mg/dL (Normal) Range: 100-199 Comments: Effective April 28, 2015 the reference interval for Cholesterol, Total will be changing to: 0 - 19 years 100 - 169 >19 years 100 - 199 84-Bsn-925972:27 TSH (73507) Comments: PATIENT WAS FASTINGPERFORMED BY: [employer] Jgidry8676 [facility] [id number] TSH 1.500 {uIU/mL} (Normal) Range: 0.450-4.500 69-Wrd-478356:23 Comp. Metabolic Panel Comments: PATIENT NOT FASTINGPERFORMED BY: [employer]6370 [facility] [id number] Information: [id number], [id number]; will review at 12/18 appt (14) ALT (SGPT) 16 [iU]/L (Normal) Range: 0-32 AST (SGOT) 19 [iU]/L (Normal) Range: 0-40 Alkaline Phosphatase, S 35 [iU]/L (Abnormal) Range: 39-117 Bilirubin, Total 0.6 mg/dL (Normal) Range: 0.0-1.2 A/G Ratio 1.9 (Normal) Range: 1.1-2.5 Globulin, Total 2.1 g/dL (Normal) Range: 1.5-4.5 Albumin, Serum 3.9 g/dL (Normal) Range: 3.5-4.8 Protein, Total, Serum 6.0 g/dL (Normal) Range: 6.0-8.5 Calcium, Serum 9.3 mg/dL (Normal) Range: 8.7-10.3 Carbon Dioxide, Total 25 mmol/L (Normal) Range: 18-29 Chloride, Serum 103 mmol/L (Normal) Range: 97-108 Potassium, Serum 4.6 mmol/L (Normal) Range: 3.5-5.2 Sodium, Serum 142 mmol/L (Normal) Range: 134-144 BUN/Creatinine Ratio 25 (Normal) Range: 11-26 eGFR If Africn Am 100 mL/min/1.73 (Normal) eGFR If NonAfricn Am 87 mL/min/1.73 (Normal) Creatinine, Serum 0.67 mg/dL (Normal) Range: 0.57-1.00 BUN 17 mg/dL (Normal) Range: 8-27 Glucose, Serum 112 mg/dL (Abnormal) Range: 65-99 99-Ysb-690618:23 Lipid Panel With LDL/HDL Comments: PATIENT NOT FASTINGPERFORMED BY: [facility] [id number] Ratio LDL/HDL Ratio 0.7 {ratio_units} (Normal) Range: 0.0-3.2 Comments: LDL/HDL Ratio Men Women 1/2 Avg.Risk 1.0 1.5 Av g.Risk 3.6 3.2 2X Avg.Risk 6.2 5.0 3X Avg.Risk 8.0 6.1 LDL Cholesterol Calc 39 mg/dL (Normal) Range: 0-99 VLDL Cholesterol Drew 18 mg/dL (Normal) Range: 5-40 HDL Cholesterol 53 mg/dL (Normal) Comments: According to ATP-III Guidelines, HDL-C >59 mg/dL is considered anegative risk factor for CHD. Triglycerides 90 mg/dL (Normal) Range: 0-149 Cholesterol, Total 110 mg/dL (Normal) Range: 100-199 37-Tdp-353274:23 Microalb/Creat Ratio, Randm Ur Comments: PATIENT NOT FASTINGPERFORMED BY: [facility] [id number] Microalb/Creat Ratio 8.3 {mg/g_creat} Range: 0.0-30.0 (Normal) Microalbumin, Urine 9.2 ug/mL (Normal) Range: 0.0-17.0 Creatinine, Urine 111.3 mg/dL (Normal) Range: 15.0-278.0 12-Dec-2014 TSH 1.580 {uIU/mL} Comments: PATIENT NOT FASTINGPERFORMED BY: [facility] Xopbfv6920 [address] [place] [id number] 11:23 (Normal) Range: 0.450-4.500 3-Ejr-230762:07 Prothrombin Time w/INR Comments: Test performed at:[facility] [address] [place] [address] INR 2.9 (Normal) PROTIME 29.9 s (Abnormal) Range: 11.7-14.9 07-Dfv-968102:52 INR Fingerstick Comments: Test performed at:[facility] [address] [place] [address] INR ISTAT 3.10 (Normal) Comments: Critical Value > 3.5 15-Nxl-216573:52 Prothrombin Time Fingerstick Comments: Test performed at:[facility] [address] [place] [address] PROTIME ISTAT 35.1 {SEC} (Abnormal) Range: 11.9-14.4 Comments: Reference Range 11.9 - 14.4 04-Ztm-245778:45 Prothrombin Time w/INR Comments: Test performed at:[facility] [address] [place] [address] INR 2.1 (Normal) PROTIME 23.6 s (Abnormal) Range: 11.7-14.9 [id number] Prothrombin Time w/INR Comments: Result obtained is for [facility] [id number] . 09/25/14 1207 [facility] CONFIRMATION SPECIMEN RESULT IS FROM VENOUS BLOOD.Test performed at:[facility] [address] [place] [address] 77270 INR 4.0 (Abnormal) Comments: RESULTS CALLED TO RAHAT WERNER 09/25/14 Martin Plasencia.REPORT READ BACK BY SAME.; ADDENDA: handled by cardio and they were notified. PROTIME 38.9 s (Abnormal) Range: 11.7-14.9 :48 INR Fingerstick Comments: Test performed at:[facility] [address] [place] [address] INR ISTAT 4.30 (Abnormal) Comments: Critical Value > 3.5; ADDENDA: Dr. Shey smallwood and Felisa aware of results. [id number] Prothrombin Time Fingerstick Comments: Test performed at:[facility] [address] [place] [address] PROTIME ISTAT 48.2 {SEC} (Abnormal) Range: 11.9-14.4 Comments: Reference Range 11.9 - 14.4 :02 HgA1C , Office (15436) HgA1C , Office 6.3 % (Normal) Range: 4.6 - 7.1 [id number] INR Fingerstick Comments: Test performed at:[facility] [address] [place] [address] INR ISTAT 2.60 (Normal) Comments: Critical Value > 3.5; ADDENDA: [facility] [id number] Prothrombin Time Fingerstick Comments: Test performed at:[facility] [address] [place] [address] PROTIME ISTAT 30.4 {SEC} (Abnormal) Range: 11.9-14.4 Comments: Reference Range 11.9 - 14.4 :19 INR Fingerstick Comments: Test performed at:[facility] [address] [place] [address] INR ISTAT 3.20 (Normal) Comments: Critical Value > 3.5 :19 Prothrombin Time Fingerstick Comments: Test performed at:[facility] [address] [place] [address] PROTIME ISTAT 36.2 {SEC} (Abnormal) Range: 11.9-14.4 Comments: Reference Range 11.9 - 14.4 :11 CBC W/AUTO DIFF WBC Comments: PATIENT WAS FASTINGPERFORMED BY: RYLIE Better ATM ServicesMeadowlands Hospital Medical CenterYhvhvu8261 [facility] [id number] Information: [id number] CC:[id number] 1 (46448) Immature Grans (Abs) 0.0 {x10E3/uL} (Normal) Range: 0.0-0.1 Immature Granulocytes 0 % (Normal) Baso (Absolute) 0.1 {x10E3/uL} (Normal) Range: 0.0-0.2 Eos (Absolute) 0.4 {x10E3/uL} (Normal) Range: 0.0-0.4 Monocytes(Absolute) 0.7 {x10E3/uL} (Normal) Range: 0.1-0.9 Lymphs (Absolute) 3.3 {x10E3/uL} (Abnormal) Range: 0.7-3.1 Neutrophils (Absolute) 3.3 {x10E3/uL} (Normal) Range: 1.4-7.0 Basos 2 % (Normal) Eos 5 % (Normal) Monocytes 9 % (Normal) Lymphs 42 % (Normal) Neutrophils 42 % (Normal) Platelets 303 {x10E3/uL} (Normal) Range: 150-379 RDW 14.3 % (Normal) Range: 12.3-15.4 MCHC 32.3 g/dL (Normal) Range: 31.5-35.7 MCH 29.6 pg (Normal) Range: 26.6-33.0 MCV 92 fL (Normal) Range: 79-97 Hematocrit 38.4 % (Normal) Range: 34.0-46.6 Hemoglobin 12.4 g/dL (Normal) Range: 11.1-15.9 RBC 4.19 {x10E6/uL} (Normal) Range: 3.77-5.28 WBC 7.9 {x10E3/uL} (Normal) Range: 3.4-10.8 :11 METABOLIC PANEL, COMPREHENSIVE Comments: PATIENT WAS FASTINGPERFORMED BY: [facility] [id number]; will review at 08/20 (02982) ALT (SGPT) 19 [iU]/L (Normal) Range: 0-32 AST (SGOT) 22 [iU]/L (Normal) Range: 0-40 Alkaline Phosphatase, S 36 [iU]/L (Abnormal) Range: 39-117 Bilirubin, Total 0.8 mg/dL (Normal) Range: 0.0-1.2 A/G Ratio 1.8 (Normal) Range: 1.1-2.5 Globulin, Total 2.2 g/dL (Normal) Range: 1.5-4.5 Albumin, Serum 3.9 g/dL (Normal) Range: 3.5-4.8 Protein, Total, Serum 6.1 g/dL (Normal) Range: 6.0-8.5 Calcium, Serum 9.3 mg/dL (Normal) Range: 8.7-10.3 Carbon Dioxide, Total 26 mmol/L (Normal) Range: 18-29 Chloride, Serum 102 mmol/L (Normal) Range: 97-108 Potassium, Serum 4.0 mmol/L (Normal) Range: 3.5-5.2 Sodium, Serum 143 mmol/L (Normal) Range: 134-144 BUN/Creatinine Ratio 26 (Normal) Range: 11-26 eGFR If Africn Am 92 mL/min/1.73 (Normal) eGFR If NonAfricn Am 80 mL/min/1.73 (Normal) Creatinine, Serum 0.74 mg/dL (Normal) Range: 0.57-1.00 BUN 19 mg/dL (Normal) Range: 8-27 Glucose, Serum 115 mg/dL (Abnormal) Range: 65-99 67-Yst-837086:11 LIPID PANEL (87683) Comments: PATIENT WAS FASTINGPERFORMED BY: LabCoMeadowlands Hospital Medical CenterWrcgvg6410 [facility] [id number] LDL/HDL Ratio 0.6 {ratio_units} (Normal) Range: 0.0-3.2 Comments: LDL/HDL Ratio Men Women 1/2 Avg.Risk 1.0 1.5 Av g.Risk 3.6 3.2 2X Avg.Risk 6.2 5.0 3X Avg.Risk 8.0 6.1 LDL Cholesterol Calc 39 mg/dL (Normal) Range: 0-99 VLDL Cholesterol Drew 13 mg/dL (Normal) Range: 5-40 HDL Cholesterol 62 mg/dL (Normal) Comments: According to ATP-III Guidelines, HDL-C >59 mg/dL is considered anegative risk factor for CHD. Triglycerides 65 mg/dL (Normal) Range: 0-149 Cholesterol, Total 114 mg/dL (Normal) Range: 100-199 18-Mjs-616917:11 TSH (80973) Comments: PATIENT WAS FASTINGPERFORMED BY: [facility] Eixttn1195 [address]bl[address] [place] [id number] TSH 2.220 {uIU/mL} (Normal) Range: 0.450-4.500 85-Kiw-511696:11 Vitamin D Hydroxy (95338) Comments: PATIENT WAS FASTINGPERFORMED BY: [facility] Quvrmi8480 [address] RoadDublin [place] [id number] Vitamin D, 25-Hydroxy 58.5 ng/mL (Normal) Range: 30.0-100.0 Comments: Vitamin D deficiency has been defined by the [place] [facility] and an Endocrine Society practice guideline as alevel of serum 25-OH vitamin D less than 20 ng/mL (1,2).The Endocrine Society went on to further define vitamin Dinsufficiency as a level between 21 and 29 ng/mL (2).1. IOM ([place] of Medicine). 2010. Dietary reference intakes for calcium and D. [place]: The National Academies Press.2. Isidro MF, Bella NC, Ron GAVIN, et al. Evaluation, treatment, and prevention of vitamin D deficiency: an Endocrine Society clinical practice guideline. JCEM. 2010; 96(7):1911-30. 17-Ice-856857:04 HgA1C , Office (57859) HgA1C , Office 6.4 % (Normal) Range: 4.6 - 7.1 1-Ggv-002856:35 IINR 2.80 (Normal) Comments: Critical Value> 3.5 :35 IPTF 32.1 {SEC} (Abnormal) Range: 11.9-14.4 Comments: Reference Range11.9 - 14.4 2-Ypg-414960:40 PT Comments: Result obtained is for confirmation testing ofFingerstick PT/INR Specimen # [id number] . 02/08/14 1315 [id number] CONFIRMATION SPECIMEN RESULT IS FROM VENOUS BLOOD.This critical result is preliminary and n ot confirmed.Venous sample sent to main laboratory for confirmation.A call with confirmation result will follow.See specimen #:[id number][] for confirmation result.Preliminary critical result Call to/Read back by ?[].02/08/14 1310 DMAIBACH2. INR 3.2 (Normal) PTP 32.4 s (Abnormal) Range: 11.7-14.9 Comments: Please note revised PROTIME reference range sepaetfhr90/14/. :32 IINR 3.60 (Abnormal) Comments: Critical Value> 3.5 :32 IPTF 40.7 {SEC} (Abnormal) Range: 11.9-14.4 Comments: Reference Range11.9 - 14.4 :53 LIPID PANEL (44595) Comments: PATIENT WAS FASTINGPERFORMED BY: [employer] [facility] HospitalVideoSurfFormerly [facility] [id number] LDL/HDL Ratio 0.9 {ratio_units} (Normal) Range: 0.0-3.2 Comments: LDL/HDL Ratio Men Women 1/2 Avg.Risk 1.0 1.5 Av g.Risk 3.6 3.2 2X Avg.Risk 6.2 5.0 3X Avg.Risk 8.0 6.1 LDL Cholesterol Calc 42 mg/dL (Normal) Range: 0-99 VLDL Cholesterol Drew 20 mg/dL (Normal) Range: 5-40 HDL Cholesterol 47 mg/dL (Normal) Comments: According to ATP-III Guidelines, HDL-C >59 mg/dL is considered anegative risk factor for CHD. Triglycerides 101 mg/dL (Normal) Range: 0-149 Cholesterol, Total 109 mg/dL (Normal) Range: 100-199 :53 CBC WITH MANUAL DIFF Comments: PATIENT WAS FASTINGPERFORMED BY: [employer] Eqevwu7357 [facility] [id number] Information: [id number] (21302) Immature Grans (Abs) 0.0 {x10E3/uL} (Normal) Range: 0.0-0.1 Immature Granulocytes 0 % (Normal) Baso (Absolute) 0.1 {x10E3/uL} (Normal) Range: 0.0-0.2 Eos (Absolute) 0.4 {x10E3/uL} (Normal) Range: 0.0-0.4 Monocytes(Absolute) 0.8 {x10E3/uL} (Normal) Range: 0.1-0.9 Lymphs (Absolute) 4.1 {x10E3/uL} (Abnormal) Range: 0.7-3.1 Neutrophils (Absolute) 5.6 {x10E3/uL} (Normal) Range: 1.4-7.0 Basos 1 % (Normal) Eos 3 % (Normal) Monocytes 7 % (Normal) Lymphs 37 % (Normal) Neutrophils 52 % (Normal) Platelets 297 {x10E3/uL} (Normal) Range: 150-379 RDW 13.8 % (Normal) Range: 12.3-15.4 MCHC 32.8 g/dL (Normal) Range: 31.5-35.7 MCH 30.2 pg (Normal) Range: 26.6-33.0 MCV 92 fL (Normal) Range: 79-97 Hematocrit 37.2 % (Normal) Range: 34.0-46.6 Hemoglobin 12.2 g/dL (Normal) Range: 11.1-15.9 RBC 4.04 {x10E6/uL} (Normal) Range: 3.77-5.28 WBC 11.0 {x10E3/uL} (Abnormal) Range: 3.4-10.8 2-Zgk-930886:53 METABOLIC PANEL, COMPREHENSIVE Comments: PATIENT WAS FASTINGPERFORMED BY: [facility] [id number] (87758) ALT (SGPT) 14 [iU]/L (Normal) Range: 0-32 AST (SGOT) 21 [iU]/L (Normal) Range: 0-40 Alkaline Phosphatase, S 49 [iU]/L (Normal) Range: 39-117 Bilirubin, Total 0.4 mg/dL (Normal) Range: 0.0-1.2 A/G Ratio 1.7 (Normal) Range: 1.1-2.5 Globulin, Total 2.3 g/dL (Normal) Range: 1.5-4.5 Albumin, Serum 4.0 g/dL (Normal) Range: 3.5-4.8 Protein, Total, Serum 6.3 g/dL (Normal) Range: 6.0-8.5 Calcium, Serum 9.4 mg/dL (Normal) Range: 8.6-10.2 Carbon Dioxide, Total 25 mmol/L (Normal) Range: 18-29 Chloride, Serum 103 mmol/L (Normal) Range: 97-108 Potassium, Serum 4.9 mmol/L (Normal) Range: 3.5-5.2 Sodium, Serum 144 mmol/L (Normal) Range: 134-144 BUN/Creatinine Ratio 27 (Abnormal) Range: 11-26 eGFR If Africn Am 91 mL/min/1.73 (Normal) eGFR If NonAfricn Am 79 mL/min/1.73 (Normal) Creatinine, Serum 0.75 mg/dL (Normal) Range: 0.57-1.00 BUN 20 mg/dL (Normal) Range: 8-27 Glucose, Serum 115 mg/dL (Abnormal) Range: 65-99 :53 MICROALBUMIN URINE QUANT Comments: PATIENT WAS FASTINGPERFORMED BY: [facility] Hvcyqq2080 [facility] [id number] (02791) Microalb/Creat Ratio 5.9 {mg/g_creat} (Normal) Range: 0.0-30.0 Microalbumin, Urine 14.4 ug/mL (Normal) Range: 0.0-17.0 Creatinine, Urine 245.9 mg/dL (Normal) Range: 15.0-278.0 :53 TSH (82073) Comments: PATIENT WAS FASTINGPERFORMED BY: [facility] Srclxl9006 [facility] [id number] TSH 1.260 {uIU/mL} (Normal) Range: 0.450-4.500 :59 HgA1C , Office (13625) Comments: not fasting and was 107 Fasting this am HgA1C , Office 6.3 % (Normal) Range: 4.6 - 7.1 :58 Blood Glucose , Office (56485) Blood Glucose , Office 126 (Normal) Comments: non-fasting :4 IINR 2.90 (Normal) Comments: Critical Value> 3.5 0 24-Zrf-071587:4 IPTF 32.7 {SEC} (Abnormal) Range: 11.9-14.4 0 Comments: Reference Range11.9 - 14.4 :08 METABOLIC PANEL, Comments: PATIENT WAS FASTINGPERFORMED BY: [facility] Nfvfgc0636 Aditya Sosa [place] [id number] Information: [id number] CC:[id number] COMPREHENSIVE (36622) ALT (SGPT) 14 [iU]/L (Normal) Range: 0-32 AST (SGOT) 20 [iU]/L (Normal) Range: 0-40 Alkaline Phosphatase, S 40 [iU]/L (Normal) Range: 39-117 Bilirubin, Total 0.5 mg/dL (Normal) Range: 0.0-1.2 A/G Ratio 2.1 (Normal) Range: 1.1-2.5 Globulin, Total 2.0 g/dL (Normal) Range: 1.5-4.5 Albumin, Serum 4.2 g/dL (Normal) Range: 3.5-4.8 Protein, Total, Serum 6.2 g/dL (Normal) Range: 6.0-8.5 Calcium, Serum 9.3 mg/dL (Normal) Range: 8.6-10.2 Carbon Dioxide, Total 25 mmol/L (Normal) Range: 19-28 Comments: Effective December 17, 2013, the reference interval for Carbon Dioxide, Total will be changing to: 0 - 30 days 15 - 27 31 d - 5 months 15 - 26 6 m - 11 months 15 - 1 - 12 years 17 - 27 > 12 years 18 - 29 Chloride, Serum 103 mmol/L (Normal) Range: 97-108 Potassium, Serum 4.5 mmol/L (Normal) Range: 3.5-5.2 Sodium, Serum 142 mmol/L (Normal) Range: 134-144 BUN/Creatinine Ratio 25 (Normal) Range: 11-26 eGFR If Africn Am 96 mL/min/1.73 (Normal) eGFR If NonAfricn Am 83 mL/min/1.73 (Normal) Creatinine, Serum 0.72 mg/dL (Normal) Range: 0.57-1.00 BUN 18 mg/dL (Normal) Range: 8-27 Glucose, Serum 98 mg/dL (Normal) Range: 65-99 63-Xun-815960:08 LIPID PANEL (63519) Comments: PATIENT WAS FASTINGPERFORMED BY: [employer] Sajdxs7505 [facility] [id number] LDL/HDL Ratio 0.8 {ratio_units} (Normal) Range: 0.0-3.2 LDL Cholesterol Calc 50 mg/dL (Normal) Range: 0-99 VLDL Cholesterol Drew 15 mg/dL (Normal) Range: 5-40 HDL Cholesterol 59 mg/dL (Normal) Comments: According to ATP-III Guidelines, HDL-C >59 mg/dL is considered anegative risk factor for CHD. Triglycerides 73 mg/dL (Normal) Range: 0-149 Cholesterol, Total 124 mg/dL (Normal) Range: 100-199 24-Mfg-081512:08 TSH (39563) Comments: PATIENT WAS FASTINGPERFORMED BY: [employer]6370 [facility] [id number] TSH 1.220 {uIU/mL} (Normal) Range: 0.450-4.500 03-Bje-952899:26 HgA1C , Office (74730) HgA1C , Office 6.4 % (Normal) Range: 4.6 - 7.1 12-Yqj-512995:13 MICROALBUMIN: CREATININE RATIO Comments: PATIENT WAS FASTINGPERFORMED BY: [employer] Dsvbsd7508 [facility] [id number] (11714) AND (76737) Microalb/Creat Ratio 5.4 {mg/g_creat} (Normal) Range: 0.0-30.0 Microalbumin, Urine 4.7 ug/mL (Normal) Range: 0.0-17.0 Creatinine, Urine 87.4 mg/dL (Normal) Range: 15.0-278.0 60-Qeq-996718:13 CBC WITH MANUAL DIFF Comments: PATIENT WAS FASTINGPERFORMED BY: LabCoMeadowlands Hospital Medical CenterQqkoth6858 [facility] [id number] Information: [id number] CC:[id number] 1 (91889) Immature Grans (Abs) 0.0 {x10E3/uL} (Normal) Range: 0.0-0.1 Immature Granulocytes 0 % (Normal) Range: 0-2 Baso (Absolute) 0.1 {x10E3/uL} (Normal) Range: 0.0-0.2 Eos (Absolute) 0.6 {x10E3/uL} (Abnormal) Range: 0.0-0.4 Monocytes(Absolute) 0.6 {x10E3/uL} (Normal) Range: 0.1-0.9 Lymphs (Absolute) 3.3 {x10E3/uL} (Abnormal) Range: 0.7-3.1 Neutrophils (Absolute) 3.6 {x10E3/uL} (Normal) Range: 1.4-7.0 Basos 2 % (Normal) Range: 0-3 Eos 7 % (Abnormal) Range: 0-5 Monocytes 7 % (Normal) Range: 4-12 Lymphs 40 % (Normal) Range: 14-46 Neutrophils 44 % (Normal) Range: 40-74 Platelets 252 {x10E3/uL} (Normal) Range: 155-379 RDW 13.9 % (Normal) Range: 12.3-15.4 MCHC 32.3 g/dL (Normal) Range: 31.5-35.7 MCH 29.4 pg (Normal) Range: 26.6-33.0 MCV 91 fL (Normal) Range: 79-97 Hematocrit 37.2 % (Normal) Range: 34.0-46.6 Hemoglobin 12.0 g/dL (Normal) Range: 11.1-15.9 RBC 4.08 {x10E6/uL} (Normal) Range: 3.77-5.28 WBC 8.1 {x10E3/uL} (Normal) Range: 3.4-10.8 12-Aqc-113418:13 METABOLIC PANEL, COMPREHENSIVE Comments: PATIENT WAS FASTINGPERFORMED BY: LabCoMeadowlands Hospital Medical CenterNpazzc1070 [facility] [id number] (57869) ALT (SGPT) 13 [iU]/L (Normal) Range: 0-32 AST (SGOT) 16 [iU]/L (Normal) Range: 0-40 Alkaline Phosphatase, S 40 [iU]/L (Normal) Range: 39-117 Bilirubin, Total 0.5 mg/dL (Normal) Range: 0.0-1.2 A/G Ratio 1.7 (Normal) Range: 1.1-2.5 Globulin, Total 2.3 g/dL (Normal) Range: 1.5-4.5 Albumin, Serum 4.0 g/dL (Normal) Range: 3.5-4.8 Protein, Total, Serum 6.3 g/dL (Normal) Range: 6.0-8.5 Calcium, Serum 9.0 mg/dL (Normal) Range: 8.6-10.2 Carbon Dioxide, Total 24 mmol/L (Normal) Range: 19-28 Chloride, Serum 102 mmol/L (Normal) Range: 97-108 Potassium, Serum 4.4 mmol/L (Normal) Range: 3.5-5.2 Sodium, Serum 140 mmol/L (Normal) Range: 134-144 BUN/Creatinine Ratio 39 (Abnormal) Range: 11-26 eGFR If Africn Am 99 mL/min/1.73 (Normal) eGFR If NonAfricn Am 86 mL/min/1.73 (Normal) Creatinine, Serum 0.70 mg/dL (Normal) Range: 0.57-1.00 BUN 27 mg/dL (Normal) Range: 8-27 Glucose, Serum 104 mg/dL (Abnormal) Range: 65-99 53-Pza-187661:13 LIPID PANEL (31696) Comments: PATIENT WAS FASTINGPERFORMED BY: [facility] GrindFormerly [facility] [id number] LDL/HDL Ratio 0.9 {ratio_units} (Normal) Range: 0.0-3.2 LDL Cholesterol Calc 53 mg/dL (Normal) Range: 0-99 VLDL Cholesterol Drew 13 mg/dL (Normal) Range: 5-40 HDL Cholesterol 56 mg/dL (Normal) Comments: According to ATP-III Guidelines, HDL-C >59 mg/dL is considered anegative risk factor for CHD. Triglycerides 64 mg/dL (Normal) Range: 0-149 Cholesterol, Total 122 mg/dL (Normal) Range: 100-199 75-Cca-340134:13 Vitamin D Hydroxy (77884) Comments: PATIENT WAS FASTINGPERFORMED BY: [facility] GrindFormer[facility] [id number] Vitamin D, 25-Hydroxy 72.0 ng/mL (Normal) Range: 30.0-100.0 Comments: Vitamin D deficiency has been defined by the [place] ofMedicine and an Endocrine Society practice guideline as alevel of serum 25-OH vitamin D less than 20 ng/mL (1,2).The Endocrine Society went on to further define vitamin Dinsufficiency as a level between 21 and 29 ng/mL (2).1. IOM ([place] of Medicine). 2010. Dietary reference intakes for calcium and D. [place]: The National Academies Press.2. Isidro MF, Bella FLORES, Ron GAVIN, et al. Evaluation, treatment, and prevention of vitamin D deficiency: an Endocrine Society clinical practice guideline. JCEM. 2010; 96(7):1911-30. :06 HgA1C , Office (68339) HgA1C , Office 6.5 % (Normal) Range: 4.6 - 7.1 :46 CBC WITH MANUAL DIFF Comments: PATIENT WAS FASTINGPERFORMED BY: LabCoMeadowlands Hospital Medical CenterKvxybo8032 [facility] [id number] Information: [id number] (72366) Immature Grans (Abs) 0.0 {x10E3/uL} (Normal) Range: 0.0-0.1 Immature Granulocytes 0 % (Normal) Range: 0-2 Baso (Absolute) 0.1 {x10E3/uL} (Normal) Range: 0.0-0.2 Eos (Absolute) 0.5 {x10E3/uL} (Abnormal) Range: 0.0-0.4 Monocytes(Absolute) 0.8 {x10E3/uL} (Normal) Range: 0.1-0.9 Lymphs (Absolute) 3.3 {x10E3/uL} (Abnormal) Range: 0.7-3.1 Neutrophils (Absolute) 4.3 {x10E3/uL} (Normal) Range: 1.4-7.0 Basos 2 % (Normal) Range: 0-3 Eos 5 % (Normal) Range: 0-5 Monocytes 9 % (Normal) Range: 4-12 Lymphs 37 % (Normal) Range: 14-46 Neutrophils 47 % (Normal) Range: 40-74 Platelets 257 {x10E3/uL} (Normal) Range: 155-379 RDW 13.8 % (Normal) Range: 12.3-15.4 MCHC 33.1 g/dL (Normal) Range: 31.5-35.7 MCH 30.2 pg (Normal) Range: 26.6-33.0 MCV 91 fL (Normal) Range: 79-97 Hematocrit 37.5 % (Normal) Range: 34.0-46.6 Hemoglobin 12.4 g/dL (Normal) Range: 11.1-15.9 RBC 4.11 {x10E6/uL} (Normal) Range: 3.77-5.28 WBC 8.9 {x10E3/uL} (Normal) Range: 3.4-10.8 :46 TSH (83394) Comments: PATIENT WAS FASTINGPERFORMED BY: [employer] [facility] [id number] TSH 2.720 {uIU/mL} (Normal) Range: 0.450-4.500 :46 LIPID PANEL (53585) Comments: PATIENT WAS FASTINGPERFORMED BY: [employer] [facility] [id number] LDL/HDL Ratio 0.8 {ratio_units} (Normal) Range: 0.0-3.2 LDL Cholesterol Calc 44 mg/dL (Normal) Range: 0-99 VLDL Cholesterol Drew 20 mg/dL (Normal) Range: 5-40 HDL Cholesterol 55 mg/dL (Normal) Comments: According to ATP-III Guidelines, HDL-C >59 mg/dL is considered anegative risk factor for CHD. Triglycerides 102 mg/dL (Normal) Range: 0-149 Cholesterol, Total 119 mg/dL (Normal) Range: 100-199 :46 METABOLIC PANEL, COMPREHENSIVE Comments: PATIENT WAS FASTINGPERFORMED BY: [employer] Wyqrhn2807 [facility] [id number] (30848) ALT (SGPT) 20 [iU]/L (Normal) Range: 0-32 AST (SGOT) 23 [iU]/L (Normal) Range: 0-40 Alkaline Phosphatase, S 40 [iU]/L (Abnormal) Range: 45-108 Bilirubin, Total 0.9 mg/dL (Normal) Range: 0.0-1.2 A/G Ratio 1.7 (Normal) Range: 1.1-2.5 Globulin, Total 2.4 g/dL (Normal) Range: 1.5-4.5 Albumin, Serum 4.0 g/dL (Normal) Range: 3.5-4.8 Protein, Total, Serum 6.4 g/dL (Normal) Range: 6.0-8.5 Calcium, Serum 9.2 mg/dL (Normal) Range: 8.6-10.2 Carbon Dioxide, Total 24 mmol/L (Normal) Range: 19-28 Chloride, Serum 102 mmol/L (Normal) Range: 97-108 Potassium, Serum 4.0 mmol/L (Normal) Range: 3.5-5.2 Sodium, Serum 139 mmol/L (Normal) Range: 134-144 BUN/Creatinine Ratio 27 (Abnormal) Range: 11-26 eGFR If Africn Am 100 mL/min/1.73 (Normal) eGFR If NonAfricn Am 87 mL/min/1.73 (Normal) Creatinine, Serum 0.70 mg/dL (Normal) Range: 0.57-1.00 BUN 19 mg/dL (Normal) Range: 8-27 Glucose, Serum 96 mg/dL (Normal) Range: 65-99 04-Ewv-334628:54 HgA1C , Office (45258) HgA1C , Office 6.5 % (Normal) Range: 4.6 - 7.1 80-Hkq-226747:21 Protein Electro, Random Urine Comments: PERFORMED BY: [employer] GrindSiteMinder [place] [id number] Please note: SPRCS (Normal) Comments: Protein electrophoresis scan will follow via computer, mail, orcourier delivery. Gamma Globulin, U 14.4 % (Normal) M-Stewart, % Not Observed % (Normal) Beta Globulin, U 24.3 % (Normal) Wovgv-5-Emdlzqxy, U 22.4 % (Normal) Lbzfr-5-Igbfrvdr, U 5.9 % (Normal) Albumin, U 33.0 % (Normal) Protein,Total,Urine 10.5 mg/dL (Normal) Range: 0.0-15.0 41-Qhf-047528:21 Protein Electro.,S Comments: PERFORMED BY: [facility] [id number] Please note: SPRCS (Normal) Comments: Protein electrophoresis scan will follow via computer, mail, orcourier delivery. A/G Ratio 1.4 (Normal) Range: 0.7-2.0 Globulin, Total 2.7 g/dL (Normal) Range: 2.0-4.5 Gamma Globulin 0.8 g/dL (Normal) Range: 0.5-1.6 M-Stewart Not Observed g/dL (Normal) Uzrzv-6-Fwnwhxnz 0.7 g/dL (Normal) Range: 0.4-1.2 Beta Globulin 1.1 g/dL (Normal) Range: 0.6-1.3 Wicky-2-Rontbzly 0.2 g/dL (Normal) Range: 0.1-0.4 Albumin 3.7 g/dL (Normal) Range: 3.2-5.6 Written Authorization WAR (Normal) Comments: PERFORMED BY: [employer] Bwehzl8559 [facility] [id number] 1:21 Comments: Written Authorization Received.Authorization received from ORIGINAL ORDER [id number] by Alyson Correa 04-Oct-20129:25 URINE KRISTINA CULTURE-AGNES COL Comments: post-atb; PATIENT NOT FASTINGPERFORMED BY: [employer] Ajjsoj6960 [facility] [id number] Information: SRC: [id number] COUNT (03496) Result 1 CNSNSS (Normal) Comments: Coagulase negative Staphylococcus species, not Staphylococcussaprophyticus.10,000-25,000 colony forming units per mLBased on resistance to oxacillin this isolate would be resistant toall currently avail able beta-lactam antimicrobial agents, with theexception of the newer cephalosporins with anti-MRSA activity, such asCeftaroline S = Susceptible; I = Intermediate; R = Resistant P = Positive; N = Negative MICS are expressed in micrograms per mL Antibiotic RSLT#1 RSLT#2 RSLT#3 RSLT#4Ciprofloxacin RGentamicin SLevofloxacin RNitrofurantoin SOxacillin RPenicillin RRifampin STetracycline STrimethoprim/Sulfa SVancomycin S Urine Final report Culture,Comprehe (Normal) nsive 51-Gto-374616:20 URINE KRISTINA CULTURE (AGNES Comments: PATIENT NOT FASTINGPERFORMED BY: [employer] Nlsjhs2240 [facility] [id number] Information: SRC:RAKESH [id number] COL COUNT) (34653) Antimicrobial MIHEAD (Normal) Comments: S = Susceptible; I = Intermediate; R = Resistant P = Positive; N = Negative MICS are expressed in micrograms per mL Antibiotic RSLT#1 RSLT#2 Susceptibility RSLT#3 RSLT#4Ciprofloxacin SLevofloxacin SNitrofurantoin SPenicillin STetracycline RVancomycin S Result 1 Enterococcus faecalis Comments: 25,000-50,000 colony forming units per mLNote: this isolate is vancomycin-susceptible.This information is provided for epidemiologic purposesonly: vancomycin is not among the antibioticsreco mmended for (Normal) therapy of urinary tract infectionscaused by Enterococcus.For Enterococcus species, cephalosporins, aminoglycosides (except forhigh-level resistance screening), clindamycin, and trimethoprim-sulfamethox azole are not effective clinically. Fluoroquinolones areused primarily for treating urinary tract infections. (CLSI, Y122-U30,2009) Urine Final report (Normal) Culture,Comprehensive 15-Nna-704699:28 Microscopic Examination Comments: PATIENT NOT FASTINGPERFORMED BY: [employer] Rbrtou5203 [facility] [id number] Bacteria None seen (Normal) Mucus Threads Present (Normal) Epithelial Cells (non renal) 0-10 {/hpf} (Normal) Range: 0 - 10 RBC 0-3 {/hpf} (Normal) Range: 0 - 3 WBC 0-5 {/hpf} (Normal) Range: 0 - 5 17-Qnu-909585:28 URINE KRISTINA CULTURE-IDENTIFICATN Comments: re check following ATB treatment; PATIENT NOT FASTINGPERFORMED BY: [employer] [id number] [facility] [id number] ([id number]) Result 1 CNSNSS (Normal) Comments: Coagulase negative Staphylococcus species, not Staphylococcussaprophyticus.7,000 Colonies/mLBased on resistance to oxacillin this isolate would be resistant toall currently available beta-lactam antimic robial agents, with theexception of the newer cephalosporins with anti-MRSA activity, such asCeftaroline S = Susceptible; I = Intermediate; R = Resistant P = Positive; N = Negative MICS are expressed in micrograms per mL Antibiotic RSLT#1 RSLT#2 RSLT#3 RSLT#4Ciprofloxacin RGentamicin SLevofloxaci n RNitrofurantoin SOxacillin RPenicillin RRifampin STetracycline STrimethoprim/Sulfa SVancomycin S Urine Final report Culture,Comprehens (Normal) natividad [id number] URINALYSIS ([id number]) Comments: re check following ATB treatment; PATIENT NOT FASTINGPERFORMED BY: [facility] [id number] [facility] [id number] Information: [id number] Microscopic Examination See below: (Normal) Nitrite, Urine Negative (Normal) Bilirubin Negative (Normal) Urobilinogen,Semi-Qn 0.2 mg/dL (Normal) Range: 0.0-1.9 Ketones Negative (Normal) Occult Blood Negative (Normal) Glucose Negative (Normal) Protein Negative (Normal) Appearance Clear (Normal) WBC Esterase Trace (Abnormal) Urine-Color Yellow (Normal) pH 6.5 (Normal) Range: 5.0-7.5 Specific [place] 1.009 (Normal) Range: 1.005-1.030 [id number] ABDOMEN/PELVIS WITHOUT CONT Radiology Report See Note (Normal) Comments: PROCEDURE: CT ABDOMEN AND PELVIS WITHOUT CONTRAST REASON FOR EXAM: Female, 72 years old. Left flank pain and hematuria. RADIATION DOSAGE (If Supplied By Facility): CTDIvol = ( 21.00 ) mGy, DLP=( 95 2.79 ) mGycm TECHNIQUE: Transaxial images were obtained from the dome of thediaphragmto the symphysis pubis without oral contrast, and without intravenouscontrast. Multiplanar coronal and sagittal im ages were reformatted. COMPARISON: None. FINDINGS:There is a mild degree of scarring at the lung bases. The visualizedportions of the heart are within normal limits. Normal liver. There are surgical clips in the gallbladder fossaconsistentwith a prior cholecystectomy. Normal spleen. Normal pancreas. Normal bilateral adrenal glands. Normal right kidney. A mild degree of left hydronephrosis. The re is a3.5-mm calculus in the lower pole carrie of the left kidney. A 2-mmcalculus is also seen in the lower pole carrie of the left kidney. Thereisa mild degree of left perinephric stranding. A3 millim eter calculus isseenat the left ureterovesical junction. Normal visualized stomach. Normal small intestine. There are multiplecolonic diverticula consistent with diverticulosis. The patient isstatus- post appendectomy. There is diffuse atherosclerotic calcification of the abdominal aorta,without a demonstrated aneurysm. Normal inferior vena cava. Normalretroperitoneum. Normal urinary bladder. The re is absence of the uterus consistent with aprior hysterectomy. Normal abdominal wall. There are diffuse degenerative changes of thevisualized lumbar spine. IMPRESSION:Two small left intrarenal calcul i. 3-mm calculus at the left ureterovesical junction causing a mild degreeofleft hydronephrosis. Signed:Elmer Sexton M.D.August 07, 2012 at 1:59:39 PM [id number] Signed GP/GP If you are the referring physician and would like to consult with theradiologist who provided this interpretation, please contact Yuly Zapien at [phone]. If this radiologist is unavaila ble, youwill be directed to another radiologist to assist. If you are a patient with a question regarding this report, pleasecontactyour referring physician directly. Professional Interpretation Provide d By: [employer], Phone , These documents contain legally protected and confidential healthinformation intended only for the use of the individual or entity namedabove. If you are not the intended recipient, you are hereby notifiedthatany disclosure, copying, distribution, or other use of these documents isstrictly prohibited. If you have received this information in err or,pleasenotify the sender immediately and arrange for the return or destructionofthese documents. Dictated on 08/07/12 1334 by Seven Sexton MDranscribed on 08/07/12 1406 by ITS IMPORTSign by Elmer Sexton MD on 08/07/12 1406 Sign by: Elmer Sexton MD 5-Txy-044484:46 URINE KRISTINA CULTURE-AGNES COL Comments: PATIENT NOT FASTINGPERFORMED BY: [facility] CenterPbjxyf2555 [facility] [id number] Information: SRC:UR [id number] COUNT ([id number]) Antimicrobial MIHEAD (Normal) Comments: S = Susceptible; I = Intermediate; R = Resistant P = Positive; N = Negative MICS are expressed in micrograms per mL Antibiotic RSLT#1 RSLT#2 Susceptibility RSLT#3 RSLT#4Amoxicillin/Clavulanic Acid SAmpicillin SCefazolin SCefepime SCeftriaxone SCefuroxime SCephalothin SCiprofloxacin SESBL NErtapenem SGentamicin SImipenem S Levofloxacin SNitrofurantoin SPiperacillin STetracycline STobramycin STrimethoprim/Sulfa S Result 1 Escherichia coli Comments: Greater than 100,000 colony forming units per mL (Normal) Urine Final report Culture,Comprehensive (Normal) 1-Aoi-713769:34 Urinalysis, Office (55667) UA - BILIRUBIN Negative (Normal) UA - BLOOD Non Hemolyzed Moderate (Normal) UA - GLUCOSE Negative (Normal) UA - KETONES Moderate mg/dL (Normal) Comments: trace UA - LEUKOCYTE ESTERASE Small (Normal) UA - NITRITE Negative (Normal) UA - PH 7.0 (Normal) UA - PROTEIN Trace mg/dL (Normal) UA - SPECIFIC GRAVITY 1.020 (Normal) URINE UROBILINGN AGNES TIMED Normal mg/dL (Normal) 86-Dob-756122:21 LIPID PANEL (20551) Comments: PERFORMED BY: [facility] Zyopvk4490 [facility] [id number] LDL/HDL Ratio 0.9 {ratio_units} (Normal) Range: 0.0-3.2 HDL Cholesterol 54 mg/dL (Normal) Comments: According to ATP-III Guidelines, HDL-C >59 mg/dL is considered anegative risk factor for CHD. LDL Cholesterol Calc 48 mg/dL (Normal) Range: 0-99 VLDL Cholesterol Drew 21 mg/dL (Normal) Range: 5-40 Cholesterol, Total 123 mg/dL (Normal) Range: 100-199 Triglycerides 104 mg/dL (Normal) Range: 0-149 77-Gsv-568173:21 CBC WITH MANUAL DIFF (50002) Comments: PERFORMED BY: [facility] CenterPfcdti4510 [facility] [id number] Immature Grans (Abs) 0.0 {x10E3/uL} (Normal) Range: 0.0-0.1 Immature Granulocytes 0 % (Normal) Range: 0-2 Baso (Absolute) 0.1 {x10E3/uL} (Normal) Range: 0.0-0.2 Eos (Absolute) 0.3 {x10E3/uL} (Normal) Range: 0.0-0.4 Monocytes(Absolute) 0.8 {x10E3/uL} (Normal) Range: 0.1-1.0 Lymphs (Absolute) 3.5 {x10E3/uL} (Normal) Range: 0.7-4.5 Neutrophils (Absolute) 4.3 {x10E3/uL} (Normal) Range: 1.8-7.8 Basos 1 % (Normal) Range: 0-3 Eos 4 % (Normal) Range: 0-7 Monocytes 9 % (Normal) Range: 4-13 Lymphs 39 % (Normal) Range: 14-46 Neutrophils 47 % (Normal) Range: 40-74 Platelets 236 {x10E3/uL} (Normal) Range: 140-415 RDW 14.2 % (Normal) Range: 12.3-15.4 MCHC 31.9 g/dL (Normal) Range: 31.5-35.7 MCH 29.5 pg (Normal) Range: 26.6-33.0 MCV 93 fL (Normal) Range: 79-97 Hematocrit 38.2 % (Normal) Range: 34.0-46.6 Hemoglobin 12.2 g/dL (Normal) Range: 11.1-15.9 RBC 4.13 {x10E6/uL} (Normal) Range: 3.77-5.28 WBC 9.0 {x10E3/uL} (Normal) Range: 4.0-10.5 51-Vny-907543:21 METABOLIC PANEL, COMPREHENSIVE Comments: PERFORMED BY: [employer] Keeltz4650 [facility] [id number] ([id number]) ALT (SGPT) 15 [iU]/L (Normal) Range: 0-32 AST (SGOT) 18 [iU]/L (Normal) Range: 0-40 Alkaline Phosphatase, S 41 [iU]/L (Normal) Range: 25-165 Bilirubin, Total 0.8 mg/dL (Normal) Range: 0.0-1.2 A/G Ratio 1.9 (Normal) Range: 1.1-2.5 Globulin, Total 2.2 g/dL (Normal) Range: 1.5-4.5 Albumin, Serum 4.2 g/dL (Normal) Range: 3.5-4.8 Protein, Total, Serum 6.4 g/dL (Normal) Range: 6.0-8.5 Calcium, Serum 9.1 mg/dL (Normal) Range: 8.6-10.2 Carbon Dioxide, Total 24 mmol/L (Normal) Range: 20-32 Chloride, Serum 104 mmol/L (Normal) Range: 97-108 Potassium, Serum 4.5 mmol/L (Normal) Range: 3.5-5.2 Sodium, Serum 140 mmol/L (Normal) Range: 134-144 BUN/Creatinine Ratio 48 (Abnormal) Range: 11-26 eGFR If Africn Am 105 mL/min/1.73 (Normal) eGFR If NonAfricn Am 91 mL/min/1.73 (Normal) BUN 29 mg/dL (Abnormal) Range: 8-27 Comments: Verified by repeat analysis Creatinine, Serum 0.61 mg/dL (Normal) Range: 0.57-1.00 Glucose, Serum 107 mg/dL (Abnormal) Range: 65-99 04-Htq-666736:21 MICROALBUMIN: CREATININE RATIO Comments: PERFORMED BY: [facility] ServicesM[facility] Medical CenterVmlvur3824 [facility] [id number] ([id number]) AND (10134) Microalb/Creat Ratio 3.5 {mg/g_creat} (Normal) Range: 0.0-30.0 Microalbumin, Urine 3.5 ug/mL (Normal) Range: 0.0-17.0 Creatinine, Urine 100.1 mg/dL (Normal) Range: 15.0-278.0 47-Ovv-262243:21 TSH (82710) Comments: PERFORMED BY: [employer]6370 [facility] [place] [id number] TSH 2.440 {uIU/mL} (Normal) Range: 0.450-4.500 79-Enw-456171:21 PARATHORMONE (32694) Comments: PERFORMED BY: [facility] Levyia3270 [facility] [id number] PTH, Intact 14 pg/mL (Abnormal) Range: 15-65 49-Vqr-987059:21 PHOSPHORUS (40201) Comments: PERFORMED BY: [employer]6[address] [facility] [place] [id number] Phosphorus, Serum 3.8 mg/dL (Normal) Range: 2.5-4.5 :21 Vitamin D Hydroxy (68143) Comments: PERFORMED BY: [employer]6370 [facility] [id number] Vitamin D, 25-Hydroxy 87.1 ng/mL (Normal) Range: 30.0-100.0 Comments: Vitamin D deficiency has been defined by the [place] ofMedicine and an Endocrine Society practice guideline as alevel of serum 25-OH vitamin D less than 20 ng/mL (1,2).The Endocrine Society went on to further define vitamin Dinsufficiency as a level between 21 and 29 ng/mL (2).1. IOM ([place] of Medicine). 2010. Dietary reference intakes for calcium and D. [place]: The National Academies Press.2. Isidro MF, Bella [place], Ron GAVIN, et al. Evaluation, treatment, and prevention of vitamin D deficiency: an Endocrine Society clinical practice guideline. JCEM. 2010; 96(7):1911-30. 41-Iyn-746286:15 HgA1C , Office (08491) HgA1C , Office 6.2 % (Normal) Range: 4.6 - 7.1 :53 BILAT SCRN DIGITAL & CAD Radiology Report See Note (Normal) Comments: MAMMOGRAPHY - BILATERAL SCREENING REASON FOR EXAM: Female, 72 years old. Routine annual screeningexamination. PERTINENT HISTORY: Non-contributory. TECHNIQUE: Digital examination. Med iolateral ob lique (MLO) andcraniocaudad (CC) views of both breasts were obtained. CAD: CAD wasperformed on this study. COMPARISON: Comparison is made with prior studies dated June 18nd March 25 0. FINDINGS:The breast composition is heterogeneously dense. There are no dominant masses or suspicious calcifications. Scatteredmicrocalcifications are once again seen bilaterally No other significant abnormalities are identified. There has been nosignificant change since the prior study. IMPRESSION:Stable bilateral screening mammogram. Yearly follow-up recommended. (A) ASSESSMENT CATEGORY:BIRAD S Category 2: Benign finding(s). A letter regarding these resultswill be sent to the patient by the facility within 30 days. Approximately 10% of breast cancers are not detected by mammography. Anorm al mammogram should not delay biopsy of a clinically suspiciousabnormality. Signed:Elmer Sexton M.D.July 05, 2012 at 9:40:03 AM [id number] Signed GP/GP If you are the referri ng physician and would like to consult with theradiologist who provided this interpretation, please contact Yuly Zapien at [phone]. If this radiologist is unavailable, youwill be direct ed to another radiologist to assist. If you are a patient with a question regarding this report, pleasecontactyour referring physician directly. Professional Interpretation Provided By: [facility] , These documents contain legally protected and confidential healthinformation intended only for the use of the individual or entity namedabove. If you are not the inten ded recipient, you are hereby notifiedthatany disclosure, copying, distribution, or other use of these documents isstrictly prohibited. If you have received this information in error,pleasenotify the se nder immediately and arrange for the return or destructionofthese documents. Dictated on 07/05/12 0853 by Tierra Sexton MDscribed on 07/05/12 0949 by ITS IMPORTSign by Elmer Sexton MD on 07/05/12 0951 Sign by: Darshan BARRIGAElmer 05-Jul-20128:53 DEXA BONE DENSITY STUDY () Radiology Report See Note (Normal) Comments: PROCEDURE: DUAL ENERGY X-RAY ABSORPTIOMETRY / DXA REASON FOR EXAM: Female, 72 years old. The patient is postmenopausal. TECHNIQUE: Bone Mineral Density (BMD) measurements of lumbar spine andbilate ral hips were obtained. COMPARISON: Comparison is made with prior examination dated . FINDINGS: Lumbar Spine (L1-L4): g/cm2 (1.163) / T- score (0.0) / Z-score (1.7) Left Femur Tota l: g/cm2 (0.963) / T-score (-0.4) / Z-score (1.2)Left Femoral Neck: g/cm2 (0.806) / T-score (-1.7) / Z-score (0.1)Right Femur Total: g/cm2 (0.950) / T-score (-0.5) / Z-score (1.1)Right Fe moral Neck: g/cm2 (0.833) / T-score (-1.5) / Z-score (0.3) The T-Scores on the most recent prior examination were: Lumbar Spine (L1-L4): which represents a worsening of 4.0%.Left Femur Total: which represents a worsening of 6.0%.Right Femur Total: which represents a worsening of 0.6%. IMPRESSION:The patient is considered osteopenic, as outlined above, according [facility] [employer] zation (WHO) criteria. Fracture risk is moderate. Reference Information:The T-score is the number of standard deviations above or below thestandard which is normal for young adults at their peak bone m ineraldensity. The World Health Organization (WHO) interprets the T-scores asfollows: Above -1 Normal bone densityBetween -1 and -2.5 OsteopeniaEqual to / or below -2.5 Osteoporosis As a p ractical clinical guideline, osteopenia may be graded as follows:Mild -1 through -1.5Moderate -1.6 through -2.0Severe -2.1 through -2.4 The Z-score is the number of standard deviations above or below age-matchedcontrols. A Z-score of less than -1.5 would be considered abnormal. References:1. NIH Osteoporosis and Related Bone Diseases http://www.osteo.org2. International Society for Clinical Densi tometry http://www.iscd.org3. National Osteoporosis Foundation http://www.nof.org Signed:Elmer Sexton M.D.July 05, 2012 at 9:45:08 AM [id number] Signed GP/GP If you are the referring physician and would like to consult with theradiologist who provided this interpretation, please contact Yuly Zapien at [phone]. If this radiologist is unavailable, youwill be directed to another radiologist to assist. If you are a patient with a question regarding this report, pleasecontactyour referring physician directly. Professional Interpretation Provided By: [employer], Phone , These documents contain legally protected and confidential healthinformation intended only for the use of the individual or entity namedabove. If you are not th e intended recipient, you are hereby notifiedthatany disclosure, copying, distribution, or other use of these documents isstrictly prohibited. If you have received this information in error,pleasenotify the sender immediately and arrange for the return or destructionofthese documents. Dictated on 07/05/12901 by Sohan Sexton MDribed on 07/05/12 0952 by ITS IMPORTSign by Danny Sexton MD on 07/05/12 0953 Sign by: Elmer Sexton MD 33-Llf-043760:19 Lyme Disease Antibody W/ Comments: PATIENT NOT FASTINGPERFORMED BY: [facility] CenterFtwuja8628 [facility] [id number] Information: [id number] Reflex ([id number]) Lyme Ab Interp.,EIA Negative (Normal) Lyme IgG/IgM Ab <0.91 {index} (Normal) Range: 0.00-0.90 Comments: Negative <0.91 Equivocal 0.91 - 1.09 Positive >1.09 Note: The [facility] curren tly advises that Western blot testing be performed following all equivocal or positive EIA results. Final diagnosis should include appropriate clinical findi ngs and a positive EIA which is also positive by Western blot. 01-Syq-208379:05 Lyme Disease Antibody W/ Comments: PATIENT NOT FASTINGPERFORMED BY: [facility]6370 [facility] [id number] Information: [id number] Reflex (04165) Lyme Ab Interp.,EIA Negative (Normal) Lyme IgG/IgM Ab <0.91 {index} (Normal) Range: 0.00-0.90 Comments: Negative <0.91 Equivocal 0.91 - 1.09 Positive >1.09 Note: The [facility] curren tly advises that Western blot testing be performed following all equivocal or positive EIA results. Final diagnosis should include appropriate clinical findi ngs and a positive EIA which is also positive by Western blot. 81-Lcg-341321:45 CBC WITH MANUAL DIFF Comments: PATIENT WAS FASTINGPERFORMED BY: [facility]6370 [facility] [id number] Information: [id number] (18456) Immature Grans (Abs) 0.0 {x10E3/uL} (Normal) Range: 0.0-0.1 Immature Granulocytes 0 % (Normal) Range: 0-2 Baso (Absolute) 0.1 {x10E3/uL} (Normal) Range: 0.0-0.2 Eos (Absolute) 0.3 {x10E3/uL} (Normal) Range: 0.0-0.4 Monocytes(Absolute) 0.6 {x10E3/uL} (Normal) Range: 0.1-1.0 Lymphs (Absolute) 3.2 {x10E3/uL} (Normal) Range: 0.7-4.5 Neutrophils (Absolute) 3.9 {x10E3/uL} (Normal) Range: 1.8-7.8 Basos 1 % (Normal) Range: 0-3 Eos 4 % (Normal) Range: 0-7 Monocytes 7 % (Normal) Range: 4-13 Lymphs 40 % (Normal) Range: 14-46 Neutrophils 48 % (Normal) Range: 40-74 Platelets 273 {x10E3/uL} (Normal) Range: 140-415 RDW 13.7 % (Normal) Range: 12.3-15.4 MCHC 33.6 g/dL (Normal) Range: 31.5-35.7 MCH 30.5 pg (Normal) Range: 26.6-33.0 MCV 91 fL (Normal) Range: 79-97 Hematocrit 36.9 % (Normal) Range: 34.0-46.6 Hemoglobin 12.4 g/dL (Normal) Range: 11.1-15.9 RBC 4.06 {x10E6/uL} (Normal) Range: 3.77-5.28 WBC 8.0 {x10E3/uL} (Normal) Range: 4.0-10.5 15-Uez-723142:45 METABOLIC PANEL, COMPREHENSIVE Comments: PATIENT WAS FASTINGPERFORMED BY: [facility] CenterKcouvi3327 [facility] [id number] (24976) ALT (SGPT) 21 [iU]/L (Normal) Range: 0-32 AST (SGOT) 21 [iU]/L (Normal) Range: 0-40 Alkaline Phosphatase, S 43 [iU]/L (Normal) Range: 25-165 Bilirubin, Total 0.7 mg/dL (Normal) Range: 0.0-1.2 A/G Ratio 1.5 (Normal) Range: 1.1-2.5 Globulin, Total 2.5 g/dL (Normal) Range: 1.5-4.5 Albumin, Serum 3.8 g/dL (Normal) Range: 3.5-4.8 Protein, Total, Serum 6.3 g/dL (Normal) Range: 6.0-8.5 Calcium, Serum 9.1 mg/dL (Normal) Range: 8.6-10.2 Carbon Dioxide, Total 23 mmol/L (Normal) Range: 20-32 Chloride, Serum 105 mmol/L (Normal) Range: 97-108 Potassium, Serum 4.5 mmol/L (Normal) Range: 3.5-5.2 Sodium, Serum 143 mmol/L (Normal) Range: 134-144 BUN/Creatinine Ratio 29 (Abnormal) Range: 11-26 eGFR If Africn Am 97 mL/min/1.73 (Normal) eGFR If NonAfricn Am 84 mL/min/1.73 (Normal) Creatinine, Serum 0.72 mg/dL (Normal) Range: 0.57-1.00 BUN 21 mg/dL (Normal) Range: 8-27 Glucose, Serum 99 mg/dL (Normal) Range: 65-99 19-Law-769500:45 TSH (16807) Comments: PATIENT WAS FASTINGPERFORMED BY: [facility] CenterHfpgvi0456 [facility] [id number] TSH 1.850 {uIU/mL} (Normal) Range: 0.450-4.500 68-Kwh-897436:45 LIPID PANEL (01889) Comments: PATIENT WAS FASTINGPERFORMED BY: [facility] CenterHcjlht1783 [facility] [id number] LDL/HDL Ratio 1.2 {ratio_units} (Normal) Range: 0.0-3.2 LDL Cholesterol Calc 59 mg/dL (Normal) Range: 0-99 VLDL Cholesterol Drew 22 mg/dL (Normal) Range: 5-40 HDL Cholesterol 50 mg/dL (Normal) Comments: According to ATP-III Guidelines, HDL-C >59 mg/dL is considered anegative risk factor for CHD. Triglycerides 111 mg/dL (Normal) Range: 0-149 Cholesterol, Total 131 mg/dL (Normal) Range: 100-199 64-Spz-111236:22 Blood Glucose , Office (17529) Blood Glucose , Office 142 (Normal) Comments: has eaten in last 2h108 fasting this am 0-Hoi-383699:16 CHEST, PA AND LATERAL Radiology Report See Note (Normal) Comments: PROCEDURE: X-RAY CHEST REASON FOR EXAM: Female, 71 years old. Cough and fever. TECHNIQUE: PA and lateral views of the chest. COMPARISON: Comparison is made with prior examination garry hernandez April. FINDINGS: The lungs are expanded. There is no demonstrated parenchymalabnormality.There is evidence of calcified old granulomatous disease. There is nodemonstrated pleural abnormality. There is mild cardiac enlargement. Normal mediastinum and joann. Normal visualized pulmonary arteries.Thereis atherosclerotic tortuosity of the aortic arch and descending thoracicaorta. There are diffuse dege nerative changes of the visualized thoracic spine.Normal visualized ribs, clavicles, and shoulders. There is no demonstrated abnormality of the visualized soft tissuestructures of the upper abdomen. IMP RESSION:No acute infiltrate is seen. Signed:Elmer Sexton M.D.November 05, 2011 at 1:42:05 PM EDTElectronically Signed GP/GP Professional Interpretation Provided By: [facility], , To consult with a radiologist regarding this report, please call our [id number] line @ Dictated on 11/05/11 1316 by Darshan BARRIGA,Sohan ribed on 11/05/11 1346 by ITS IMPORTSign by Elmer Sexton MD on 11/05/11 1347 Sign by: Elmer Sexton MD 17-Vcv-38582:44 MICROALBUMIN: CREATININE RATIO Comments: PATIENT WAS FASTINGPERFORMED BY: [facility] CenterYgdhqd8134 [facility] [id number] ([id number]) AND (33188) Microalb/Creat Ratio 6.8 {mg/g_creat} (Normal) Range: 0.0-30.0 Microalbumin, Urine 9.0 ug/mL (Normal) Range: 0.0-17.0 Creatinine, Urine 133.1 mg/dL (Normal) Range: 15.0-278.0 24-Fap-53451:44 METABOLIC PANEL, COMPREHENSIVE Comments: PATIENT WAS FASTINGPERFORMED BY: [facility] Kpchsu1063 [facility] [id number] (20526) ALT (SGPT) 20 [iU]/L (Normal) Range: 0-40 AST (SGOT) 26 [iU]/L (Normal) Range: 0-40 Alkaline Phosphatase, S 40 [iU]/L (Normal) Range: 25-165 Bilirubin, Total 0.7 mg/dL (Normal) Range: 0.0-1.2 A/G Ratio 1.9 (Normal) Range: 1.1-2.5 Globulin, Total 2.2 g/dL (Normal) Range: 1.5-4.5 Albumin, Serum 4.1 g/dL (Normal) Range: 3.5-4.8 Protein, Total, Serum 6.3 g/dL (Normal) Range: 6.0-8.5 Calcium, Serum 9.4 mg/dL (Normal) Range: 8.6-10.2 Carbon Dioxide, Total 23 mmol/L (Normal) Range: 20-32 Chloride, Serum 103 mmol/L (Normal) Range: 97-108 Potassium, Serum 4.0 mmol/L (Normal) Range: 3.5-5.2 Sodium, Serum 141 mmol/L (Normal) Range: 134-144 BUN/Creatinine Ratio 43 (Abnormal) Range: 11-26 eGFR If Africn Am 101 mL/min/1.73 (Normal) eGFR If NonAfricn Am 87 mL/min/1.73 (Normal) Creatinine, Serum 0.70 mg/dL (Normal) Range: 0.57-1.00 BUN 30 mg/dL (Abnormal) Range: 8-27 Glucose, Serum 111 mg/dL (Abnormal) Range: 65-99 24-Olx-67313:44 CBC WITH MANUAL DIFF Comments: PATIENT WAS FASTINGPERFORMED BY: [facility] CenterAmgoqa9476 [facility] [id number] Information: [id number] (22475) Immature Grans (Abs) 0.0 {x10E3/uL} (Normal) Range: 0.0-0.1 Immature Granulocytes 0 % (Normal) Range: 0-2 Baso (Absolute) 0.1 {x10E3/uL} (Normal) Range: 0.0-0.2 Eos (Absolute) 0.4 {x10E3/uL} (Normal) Range: 0.0-0.4 Monocytes(Absolute) 0.6 {x10E3/uL} (Normal) Range: 0.1-1.0 Lymphs (Absolute) 3.7 {x10E3/uL} (Normal) Range: 0.7-4.5 Neutrophils (Absolute) 5.0 {x10E3/uL} (Normal) Range: 1.8-7.8 Basos 1 % (Normal) Range: 0-3 Eos 4 % (Normal) Range: 0-7 Monocytes 6 % (Normal) Range: 4-13 Lymphs 38 % (Normal) Range: 14-46 Neutrophils 51 % (Normal) Range: 40-74 Platelets 276 {x10E3/uL} (Normal) Range: 140-415 RDW 14.2 % (Normal) Range: 12.3-15.4 MCHC 33.8 g/dL (Normal) Range: 31.5-35.7 MCH 30.3 pg (Normal) Range: 26.6-33.0 MCV 90 fL (Normal) Range: 79-97 Hematocrit 38.5 % (Normal) Range: 34.0-46.6 Hemoglobin 13.0 g/dL (Normal) Range: 11.1-15.9 RBC 4.29 {x10E6/uL} (Normal) Range: 3.77-5.28 WBC 9.8 {x10E3/uL} (Normal) Range: 4.0-10.5 :44 LIPID PANEL (02959) Comments: PATIENT WAS FASTINGPERFORMED BY: [employer] [facility] [id number] LDL/HDL Ratio 0.8 {ratio_units} (Normal) Range: 0.0-3.2 LDL Cholesterol Calc 46 mg/dL (Normal) Range: 0-99 VLDL Cholesterol Drew 18 mg/dL (Normal) Range: 5-40 HDL Cholesterol 60 mg/dL (Normal) Comments: According to ATP-III Guidelines, HDL-C >59 mg/dL is considered anegative risk factor for CHD. Triglycerides 92 mg/dL (Normal) Range: 0-149 Cholesterol, Total 124 mg/dL (Normal) Range: 100-199 :44 TSH (42008) Comments: PATIENT WAS FASTINGPERFORMED BY: [employer]6370 [facility] [id number] TSH 5.040 {uIU/mL} (Abnormal) Range: 0.450-4.500 :09 HgA1C , Office (91699) HgA1C , Office 6.3 % (Normal) Range: 4.6 - 7.1 29-Pvk-531159:26 BILAT SCRN DIGITAL & CAD Radiology Report See Note (Normal) Comments: MAMMOGRAPHY - BILATERAL SCREENING REASON FOR EXAM: Female, 71 years old. Routine annual screeningexamination. PERTINENT HISTORY: Non-contributory. TECHNIQUE: Digital examination. Med iolateral ob lique (MLO) andcraniocaudad (CC) views of both breasts were obtained. CAD: CAD wasperformed on this study. COMPARISON: Comparison is made with prior examination dated . FINDINGS:The br east composition is heterogeneously dense. There are no masses or suspicious microcalcifications. No other significant abnormalities are identified. There has been nosignificant change since the prior study. IMPRESSION:Normal bilateral screening mammogram. One year follow-up recommended. (A) ASSESSMENT CATEGORY:BIRADS Category 2: Benign finding(s). A letter regarding these resultswill be sent to t he patient by the facility within 30 days. Approximately 10% of breast cancers are not detected by mammography. Anormal mammogram should not delay biopsy of a clinically suspiciousabnormality. To consu lt with a radiologist regarding this report, please call our [id number] line @ Dictated on 06/18/11 1447 by Darshan BARRIGA,Sevenranscribed on 06/18/11 1601 by ITS IMPORTSign by Elmer Azul MD on 06/18/11 1602 Sign by: Elmer Sexton MD 58-Bqt-441820:55 CBC WITH MANUAL DIFF Comments: PATIENT WAS FASTINGPERFORMED BY: [facility]6370 [facility] [id number] Information: [id number] ([id number]) Immature Grans (Abs) 0.0 {x10E3/uL} (Normal) Range: 0.0-0.1 Immature Granulocytes 0 % (Normal) Range: 0-2 Baso (Absolute) 0.1 {x10E3/uL} (Normal) Range: 0.0-0.2 Eos (Absolute) 0.4 {x10E3/uL} (Normal) Range: 0.0-0.4 Monocytes(Absolute) 0.7 {x10E3/uL} (Normal) Range: 0.1-1.0 Lymphs (Absolute) 3.7 {x10E3/uL} (Normal) Range: 0.7-4.5 Neutrophils (Absolute) 4.0 {x10E3/uL} (Normal) Range: 1.8-7.8 Basos 1 % (Normal) Range: 0-3 Eos 5 % (Normal) Range: 0-7 Monocytes 8 % (Normal) Range: 4-13 Lymphs 41 % (Normal) Range: 14-46 Neutrophils 45 % (Normal) Range: 40-74 Platelets 250 {x10E3/uL} (Normal) Range: 140-415 RDW 14.6 % (Normal) Range: 11.7-15.0 MCHC 32.7 g/dL (Normal) Range: 32.0-36.0 MCH 29.6 pg (Normal) Range: 27.0-34.0 MCV 91 fL (Normal) Range: 80-98 Hematocrit 37.0 % (Normal) Range: 34.0-44.0 Hemoglobin 12.1 g/dL (Normal) Range: 11.5-15.0 RBC 4.09 {x10E6/uL} (Normal) Range: 3.80-5.10 WBC 8.9 {x10E3/uL} (Normal) Range: 4.0-10.5 10-Elb-714173:55 METABOLIC PANEL, COMPREHENSIVE Comments: PATIENT WAS FASTINGPERFORMED BY: [facility]Co[facility] CenterJezvju6855 [facility] [id number] (80234) ALT (SGPT) 16 [iU]/L (Normal) Range: 0-40 AST (SGOT) 26 [iU]/L (Normal) Range: 0-40 Alkaline Phosphatase, S 38 [iU]/L (Normal) Range: 25-165 Bilirubin, Total 0.6 mg/dL (Normal) Range: 0.0-1.2 A/G Ratio 1.7 (Normal) Range: 1.1-2.5 Globulin, Total 2.4 g/dL (Normal) Range: 1.5-4.5 Albumin, Serum 4.0 g/dL (Normal) Range: 3.5-4.8 Protein, Total, Serum 6.4 g/dL (Normal) Range: 6.0-8.5 Calcium, Serum 9.2 mg/dL (Normal) Range: 8.6-10.2 Carbon Dioxide, Total 24 mmol/L (Normal) Range: 20-32 Chloride, Serum 105 mmol/L (Normal) Range: 97-108 Potassium, Serum 4.3 mmol/L (Normal) Range: 3.5-5.2 Sodium, Serum 142 mmol/L (Normal) Range: 134-144 BUN/Creatinine Ratio 34 (Abnormal) Range: 11-26 eGFR If Africn Am 102 mL/min/1.73 (Normal) Comments: Note: A persistent eGFR <60 mL/min/1.73 m2 (3 months or more) mayindicate chronic kidney disease. An eGFR >59 mL/min/1.73 m2 with anelevated urine protein also may indicate chronic kidney disease.Calculated using CKD-EPI formula. eGFR If NonAfricn Am 88 mL/min/1.73 (Normal) Creatinine, Serum 0.68 mg/dL (Normal) Range: 0.57-1.00 BUN 23 mg/dL (Normal) Range: 8-27 Glucose, Serum 107 mg/dL (Abnormal) Range: 65-99 01-Vyz-148823:55 LIPID PANEL (50526) Comments: PATIENT WAS FASTINGPERFORMED BY: [facility]Co[facility] CenterUcmgvb4740 [facility] [id number] LDL/HDL Ratio 0.8 {ratio_units} (Normal) Range: 0.0-3.2 LDL Cholesterol Calc 46 mg/dL (Normal) Range: 0-99 VLDL Cholesterol Drew 15 mg/dL (Normal) Range: 5-40 HDL Cholesterol 57 mg/dL (Normal) Comments: According to ATP-III Guidelines, HDL-C >59 mg/dL is considered anegative risk factor for CHD. Triglycerides 77 mg/dL (Normal) Range: 0-149 Cholesterol, Total 118 mg/dL (Normal) Range: 100-199 89-Wij-008301:57 HgA1C , Office (79258) HgA1C , Office 6.3 % (Normal) Range: 4.6 - 7.1 59-Qgd-411305:57 Blood Glucose , Office (47724) Blood Glucose , Office 88 (Normal) :31 Urinalysis, Office (38103) UA - BILIRUBIN Negative (Normal) UA - BLOOD Negative (Normal) UA - GLUCOSE Negative (Normal) UA - KETONES Negative mg/dL (Normal) UA - LEUKOCYTE ESTERASE Small (Normal) UA - NITRITE Negative (Normal) UA - PH 7.0 (Normal) UA - PROTEIN Negative mg/dL (Normal) UA - SPECIFIC GRAVITY 1.025 (Normal) URINE UROBILINGN AGNES TIMED 2 mg/dL (Normal) 36-Szy-657503:57 URINE KRISTNIA CULTURE-AGNES COL Comments: PATIENT NOT FASTINGPERFORMED BY: [facility] [id number] Information: SRC: [id number] COUNT (84576) Result 1 BETAGB (Normal) Comments: Beta hemolytic Streptococcus, group BGreater than 100,000 colony forming units per mLPenicillin continues to be the drug of choice for infectionscaused by beta hemolytic streptococci in groups A,B,C and G.No penicillin resistance has been described among theseorganisms and surveillance for emerging resistance is notrecommended. (ISABEL Graham. Clinical Microbiology Newsletter,1993; BARRIE Marcano et al. Diagnostic Microbiology andInfectious Disease, December,.)Mixed urogenital flora50,000-100,000 colony forming units per mL Urine Final report (Normal) Culture,Comprehensive 07-Ome-023567:14 Urinalysis, Office (62260) UA - BILIRUBIN Negative (Normal) UA - BLOOD Hemolyzed Large (Normal) UA - GLUCOSE Negative (Normal) UA - KETONES Negative mg/dL (Normal) UA - LEUKOCYTE ESTERASE Small (Normal) UA - NITRITE Negative (Normal) UA - PH 6.0 (Normal) UA - PROTEIN 30 mg/dL (Normal) UA - SPECIFIC GRAVITY 1.025 (Normal) URINE UROBILINGN AGNES TIMED Normal mg/dL (Normal) 61-Xjn-450159:15 METABOLIC PANEL, Comments: PATIENT WAS FASTINGPERFORMED BY: [employer] Cnhopr4506 [facility] [id number] Information: [id number] COMPREHENSIVE (49204) ALT (SGPT) 19 [iU]/L (Normal) Range: 0-40 AST (SGOT) 24 [iU]/L (Normal) Range: 0-40 Alkaline Phosphatase, S 43 [iU]/L (Normal) Range: 25-165 Bilirubin, Total 0.7 mg/dL (Normal) Range: 0.0-1.2 A/G Ratio 1.7 (Normal) Range: 1.1-2.5 Globulin, Total 2.4 g/dL (Normal) Range: 1.5-4.5 Albumin, Serum 4.0 g/dL (Normal) Range: 3.5-4.8 Protein, Total, Serum 6.4 g/dL (Normal) Range: 6.0-8.5 Calcium, Serum 9.1 mg/dL (Normal) Range: 8.6-10.2 Carbon Dioxide, Total 23 mmol/L (Normal) Range: 20-32 Chloride, Serum 105 mmol/L (Normal) Range: 97-108 Potassium, Serum 4.2 mmol/L (Normal) Range: 3.5-5.2 Sodium, Serum 141 mmol/L (Normal) Range: 135-145 BUN/Creatinine Ratio 27 (Abnormal) Range: 11-26 eGFR If Africn Am 99 mL/min/1.73 (Normal) Comments: Note: A persistent eGFR <60 mL/min/1.73 m2 (3 months or more) mayindicate chronic kidney disease. An eGFR >59 mL/min/1.73 m2 with anelevated urine protein also may indicate chronic kidney disease.Calculated using CKD-EPI formula. eGFR If NonAfricn Am 86 mL/min/1.73 (Normal) Creatinine, Serum 0.71 mg/dL (Normal) Range: 0.57-1.00 BUN 19 mg/dL (Normal) Range: 8-27 Glucose, Serum 107 mg/dL (Abnormal) Range: 65-99 78-Ywh-194666:15 MICROALBUMIN: CREATININE RATIO Comments: PATIENT WAS FASTINGPERFORMED BY: RYLIE [facility]6370 [facility] [id number] ([id number]) AND (01287) Microalb/Creat Ratio 4.1 {mg/g_creat} (Normal) Range: 0.0-30.0 Creatinine, Urine 88.8 mg/dL (Normal) Range: 15.0-278.0 Microalbumin, Urine 3.6 ug/mL (Normal) Range: 0.0-17.0 06-Ifa-803461:15 TSH (56057) Comments: PATIENT WAS FASTINGPERFORMED BY: [facility]6[address] [facility] [id number] TSH 4.160 {uIU/mL} (Normal) Range: 0.450-4.500 64-Mmq-695210:15 LIPID PANEL (24203) Comments: PATIENT WAS FASTINGPERFORMED BY: [place] [id number] [facility] [id number] LDL/HDL Ratio 0.9 {ratio_units} (Normal) Range: 0.0-3.2 LDL Cholesterol Calc 44 mg/dL (Normal) Range: 0-99 HDL Cholesterol 50 mg/dL (Normal) Comments: According to ATP-III Guidelines, HDL-C >59 mg/dL is considered anegative risk factor for CHD. VLDL Cholesterol Drew 21 mg/dL (Normal) Range: 5-40 Triglycerides 103 mg/dL (Normal) Range: 0-149 Cholesterol, Total 115 mg/dL (Normal) Range: 100-199 :31 HgA1C , Office (06556) HgA1C , Office 6.5 % (Normal) Range: 4.6 - 7.1 :31 Blood Glucose , Office (32763) Blood Glucose , Office 107 (Normal) 97-Ehb-184120:15 MICROALBUMIN: CREATININE RATIO Comments: PATIENT WAS FASTINGPERFORMED BY: [facility]6370 [facility] [id number] (20230) AND (29018) Microalb/Creat Ratio 8.0 {mg/g_creat} (Normal) Range: 0.0-30.0 Microalbumin, Urine 11.2 ug/mL (Normal) Range: 0.0-17.0 Creatinine, Urine 139.4 mg/dL (Normal) Range: 15.0-278.0 :15 CBC WITH MANUAL DIFF Comments: PATIENT WAS FASTINGPERFORMED BY: [place] [id number] [facility] [id number] Information: [id number] (95652) Immature Grans (Abs) 0.0 {x10E3/uL} (Normal) Range: 0.0-0.1 Immature Granulocytes 0 % (Normal) Range: 0-2 Comments: Please note reference interval change Baso (Absolute) 0.1 {x10E3/uL} (Normal) Range: 0.0-0.2 Eos (Absolute) 0.3 {x10E3/uL} (Normal) Range: 0.0-0.4 Monocytes(Absolute) 0.6 {x10E3/uL} (Normal) Range: 0.1-1.0 Lymphs (Absolute) 3.0 {x10E3/uL} (Normal) Range: 0.7-4.5 Neutrophils (Absolute) 4.3 {x10E3/uL} (Normal) Range: 1.8-7.8 Basos 1 % (Normal) Range: 0-3 Eos 4 % (Normal) Range: 0-7 Monocytes 8 % (Normal) Range: 4-13 Lymphs 36 % (Normal) Range: 14-46 Neutrophils 51 % (Normal) Range: 40-74 Platelets 257 {x10E3/uL} (Normal) Range: 140-415 RDW 14.1 % (Normal) Range: 11.7-15.0 MCHC 32.7 g/dL (Normal) Range: 32.0-36.0 MCH 29.9 pg (Normal) Range: 27.0-34.0 MCV 91 fL (Normal) Range: 80-98 Hematocrit 37.6 % (Normal) Range: 34.0-44.0 Hemoglobin 12.3 g/dL (Normal) Range: 11.5-15.0 RBC 4.12 {x10E6/uL} (Normal) Range: 3.80-5.10 WBC 8.3 {x10E3/uL} (Normal) Range: 4.0-10.5 85-Ril-332301:15 METABOLIC PANEL, COMPREHENSIVE Comments: PATIENT WAS FASTINGPERFORMED BY: [facility]Co[facility] CenterBirneu2470 [facility] [id number]; appt 01/25/11 (46508) ALT (SGPT) 15 [iU]/L (Normal) Range: 0-40 AST (SGOT) 22 [iU]/L (Normal) Range: 0-40 Alkaline Phosphatase, S 44 [iU]/L (Normal) Range: 25-165 Bilirubin, Total 0.6 mg/dL (Normal) Range: 0.0-1.2 A/G Ratio 1.7 (Normal) Range: 1.1-2.5 Albumin, Serum 4.0 g/dL (Normal) Range: 3.5-4.8 Globulin, Total 2.4 g/dL (Normal) Range: 1.5-4.5 Protein, Total, Serum 6.4 g/dL (Normal) Range: 6.0-8.5 Calcium, Serum 9.0 mg/dL (Normal) Range: 8.6-10.2 Carbon Dioxide, Total 24 mmol/L (Normal) Range: 20-32 Chloride, Serum 103 mmol/L (Normal) Range: 97-108 Potassium, Serum 4.2 mmol/L (Normal) Range: 3.5-5.2 BUN/Creatinine Ratio 30 (Abnormal) Range: 11-26 Sodium, Serum 141 mmol/L (Normal) Range: 135-145 eGFR If Africn Am 100 mL/min/1.73 (Normal) Comments: Note: A persistent eGFR <60 mL/min/1.73 m2 (3 months or more) mayindicate chronic kidney disease. An eGFR >59 mL/min/1.73 m2 with anelevated urine protein also may indicate chronic kidney disease.Calculated using CKD-EPI formula. eGFR If NonAfricn Am 87 mL/min/1.73 (Normal) Creatinine, Serum 0.71 mg/dL (Normal) Range: 0.57-1.00 BUN 21 mg/dL (Normal) Range: 8-27 Glucose, Serum 96 mg/dL (Normal) Range: 65-99 :15 LIPID PANEL (44861) Comments: PATIENT WAS FASTINGPERFORMED BY: [facility]6370 [facility] [id number] LDL/HDL Ratio 1.0 {ratio_units} (Normal) Range: 0.0-3.2 LDL Cholesterol Calc 49 mg/dL (Normal) Range: 0-99 HDL Cholesterol 50 mg/dL (Normal) Comments: According to ATP-III Guidelines, HDL-C >59 mg/dL is considered anegative risk factor for CHD. VLDL Cholesterol Drew 19 mg/dL (Normal) Range: 5-40 Cholesterol, Total 118 mg/dL (Normal) Range: 100-199 Triglycerides 97 mg/dL (Normal) Range: 0-149 :15 TSH (78991) Comments: PATIENT WAS FASTINGPERFORMED BY: [facility] Ulghvi0211 [facility] [id number] TSH 4.080 {uIU/mL} (Normal) Range: 0.450-4.500 :32 Vitamin D Hydroxy (60931) Comments: PATIENT WAS FASTINGPERFORMED BY: [facility] Bfylhk4136 [facility] [id number] Vitamin D, 25-Hydroxy 39.9 ng/mL (Normal) Range: 32.0-100.0 Comments: Recent studies consider the lower limit of 32.0 ng/mL to be athreshold for optimal health.Keith CANO. J Nutr. 2004;135(2):317-22. :32 METABOLIC PANEL, Comments: PATIENT WAS FASTINGPERFORMED BY: [facility] Tqwaar9969 [facility] [id number] Information: [id number] CC:[id number] 1; appt 09/28/10 COMPREHENSIVE (12080) ALT (SGPT) 19 [iU]/L (Normal) Range: 0-40 Alkaline Phosphatase, S 45 [iU]/L (Normal) Range: 25-165 AST (SGOT) 23 [iU]/L (Normal) Range: 0-40 Bilirubin, Total 0.7 mg/dL (Normal) Range: 0.0-1.2 A/G Ratio 1.6 (Normal) Range: 1.1-2.5 Globulin, Total 2.5 g/dL (Normal) Range: 1.5-4.5 Albumin, Serum 4.0 g/dL (Normal) Range: 3.5-4.8 Calcium, Serum 8.7 mg/dL (Normal) Range: 8.6-10.2 Carbon Dioxide, Total 26 mmol/L (Normal) Range: 20-32 Protein, Total, Serum 6.5 g/dL (Normal) Range: 6.0-8.5 Chloride, Serum 104 mmol/L (Normal) Range: 97-108 Potassium, Serum 3.8 mmol/L (Normal) Range: 3.5-5.2 Sodium, Serum 141 mmol/L (Normal) Range: 135-145 BUN/Creatinine Ratio 34 (Abnormal) Range: 11-26 eGFR AfricanAmerican >59 mL/min/1.73 Comments: Note: Persistent reduction for 3 months or more in an eGFR<60 mL/min/1.73 m2 defines CKD. Patients with eGFR values>/=60 mL/min/1.73 m2 may also have CKD if evidence of persistentproteinuria is (Normal) present. Additional information may be found atwww.kdoqi.org .Effective October 05, 2010, Glom Filt Rate, Estimated, will be calculated using the CK-EPI formula. BUN 23 mg/dL (Normal) Range: 8-27 Creatinine, Serum 0.68 mg/dL (Normal) Range: 0.57-1.00 eGFR >59 mL/min/1.73 (Normal) Glucose, Serum 108 mg/dL (Abnormal) Range: 65-99 :32 LIPID PANEL (15822) Comments: PATIENT WAS FASTINGPERFORMED BY: [facility]6370 [facility] [id number] HDL Cholesterol 50 mg/dL (Normal) Comments: According to ATP-III Guidelines, HDL-C >59 mg/dL is considered anegative risk factor for CHD. LDL Cholesterol Calc 48 mg/dL (Normal) Range: 0-99 LDL/HDL Ratio 1.0 {ratio_units} (Normal) Range: 0.0-3.2 VLDL Cholesterol Drew 25 mg/dL (Normal) Range: 5-40 Cholesterol, Total 123 mg/dL (Normal) Range: 100-199 Triglycerides 124 mg/dL (Normal) Range: 0-149 :54 HgA1C , Office (79070) HgA1C , Office 6.3 % (Normal) Range: 4.6 - 7.1 :54 Blood Glucose , Office (68595) Blood Glucose , Office 108 (Normal) :46 PRO TIME INR 2.9 (Normal) PROTIME 29.8 s (Abnormal) Range: 9.1-11.7 :03 PRO TIME INR 3.7 (Abnormal) Comments: CRITICAL VALUE REPEATED AND VERIFIED. CALLED TO FELISA04/06/10 SID STILL.RESULTS READ BACK BY FELISA GLOVER . PROTIME 38.3 s (Abnormal) Range: 9.1-11.7 :51 PRO TIME Comments: Result obtained is for confirmation testing ofFingerstick PT/INR Specimen # [id number] . 03/30/10 1213 SHAINA CONFIRMATION SPECIMEN RESULT IS FROM VENOUS BLOOD. INR 3.3 (Normal) PROTIME 34.2 s (Abnormal) Range: 9.1-11.7 :45 INR ISTAT 3.80 (Abnormal) :45 PROTIME ISTAT 42.4 {SEC} (Normal) :20 BILAT SCRN DIGITAL & CAD Radiology Report See Note (Normal) Comments: Exam Number: [id number] MAMMOGRAPHY - BILATERAL SCREENING INDICATION:Routine annual screening examination. PERTINENT HISTORY:Non-contributory. TECHNIQUE:Digital examination. Mediolateral oblique (MLO) an d craniocaudad(CC) views of both breasts were obtained. CAD was performed on thisstudy. COMPARISON:None. FINDINGS:The breast composition is There are no masses or suspicious microcalcifications. No othe r significant abnormalities are identified. IMPRESSION:Normal bilateral screening mammogram. Yearly follow-up recommended. ASSESSMENT CATEGORY:Category 2: Benign finding(s) Approximately 10% of breast c ancers are not detected by mammography.A normal mammogram should not delay biopsy of a clinicallysuspicious abnormality.This addendum is being created for the purpose of attaching a ResultCode to this e xam.ADDENDUM: [id number] HPBI/MDS Reported By: GABRIEL REYES M.D. :19 DEXA BONE DENSITY STUDY (HP) Radiology Report See Note Comments: Exam Number: [id number] CLINICAL:Patient is a 69-year-old female who is postmenopausal. EXAMINATION:DUAL ENERGY X-RAY ABSORPTIOMETRY / DEXA. TECHNIQUE:Bone mineral density of the lumbar spine and both hi (Normal) ps was measuredusing a G. ESimple Star scannerFINDINGS:Lumbar spine g/cm2(1.257) / T-score (0.6) / Z-score (1.7)Left hip g/cm2 (0.857) / T-score (-1.3) / Z- score (0.0)Right hip g/cm2 (0.838) / T-score (-1. 4) / Z-score (-0.1) Digital lateral view for evaluation of the vertebral l deformityonly demonstrates no fractures of the lower thoracic or lumbar spine Changes in bone mineral density compared to the p revious study areas follows: Lumbar Spine (L1-L4): Increased 1.1 %.Left Femur Total: Decreased 7.8 %.Right Femur Total: Not available %. IMPRESSION:A T score of the lumbar spine is within normal limits. The T scoreis of the hips are just below normal limits. The patient is considered mildly osteopenic , as outlined above,according to World Health Organization (WHO) criteria. Fracture riskis low. Refer ence Information:The T-score is the number of standard deviations above or below thestandard which is normal for young adults at their peak bone mineraldensity. The World Health Organization (WHO) inter prets the T-scoresas follows: Above -1 Normal bone densityBetween -1 and - 2.5 OsteopeniaEqual to / or below -2.5 Osteoporosis As a practical clinical guideline, osteopenia may be graded asfollows:Mild - 1 through -1.5Moderate -1.6 through -2.0Severe -2.1 through -2.4 The Z-score is the number of standard deviations above or belowage-matched controls. A Z- score of less than -1.5 would beconsidered abnor mal. References:1. NIH Osteoporosis and Related Bone Diseases http://www.osteo.org2. International Society for Clinical Densitometryhttp://www.iscd.org3. National Osteoporosis Foundation http://www.nof.org Reported By: GABRIEL REYES M.D. 02-Mar-20 INR ISTAT 3.30 (Normal) 1011:55 02-Mar-20 PROTIME ISTAT 37.5 {SEC} 1011:55 (Normal) 62-Ozi-41683:27 CBC WITH MANUAL DIFF Comments: PATIENT WAS FASTINGPERFORMED BY: [facility] Hjneoe3334 [facility] [id number] Information: ADD [id number] AND DRAW FEE 99 [phone] (98228) Immature Grans (Abs) 0.0 {x10E3/uL} (Normal) Range: 0.0-0.1 Baso (Absolute) 0.1 {x10E3/uL} (Normal) Range: 0.0-0.2 Eos (Absolute) 0.4 {x10E3/uL} (Normal) Range: 0.0-0.4 Immature Granulocytes 0 % (Normal) Range: 0-1 Monocytes(Absolute) 0.9 {x10E3/uL} (Normal) Range: 0.1-1.0 Lymphs (Absolute) 3.6 {x10E3/uL} (Normal) Range: 0.7-4.5 Neutrophils (Absolute) 2.8 {x10E3/uL} (Normal) Range: 1.8-7.8 Basos 2 % (Normal) Range: 0-3 Eos 5 % (Normal) Range: 0-7 Monocytes 11 % (Normal) Range: 4-13 Lymphs 46 % (Normal) Range: 14-46 Neutrophils 36 % (Abnormal) Range: 40-74 MCHC 31.9 g/dL (Abnormal) Range: 32.0-36.0 Platelets 287 {x10E3/uL} (Normal) Range: 140-415 RDW 14.3 % (Normal) Range: 11.7-15.0 MCH 29.0 pg (Normal) Range: 27.0-34.0 MCV 91 fL (Normal) Range: 80-98 Hematocrit 37.6 % (Normal) Range: 34.0-44.0 Hemoglobin 12.0 g/dL (Normal) Range: 11.5-15.0 RBC 4.14 {x10E6/uL} (Normal) Range: 3.80-5.10 WBC 7.8 {x10E3/uL} (Normal) Range: 4.0-10.5 16-Klz-57505:27 LIPID PANEL (58151) Comments: PATIENT WAS FASTINGPERFORMED BY: [facility]CoM[facility] CenterLxgkvu1157 [facility] [id number] LDL Cholesterol Calc 48 mg/dL (Normal) Range: 0-99 LDL/HDL Ratio 1.2 {ratio_units} (Normal) Range: 0.0-3.2 VLDL Cholesterol Drew 18 mg/dL (Normal) Range: 5-40 HDL Cholesterol 39 mg/dL (Abnormal) Comments: According to ATP-III Guidelines, HDL-C >59 mg/dL is considered anegative risk factor for CHD. Triglycerides 88 mg/dL (Normal) Range: 0-149 Cholesterol, Total 105 mg/dL (Normal) Range: 100-199 :27 TSH (35973) Comments: PATIENT WAS FASTINGPERFORMED BY: [facility] Retkjz1276 [facility] [id number] TSH 3.660 {uIU/mL} (Normal) Range: 0.450-4.500 :27 METABOLIC PANEL, COMPREHENSIVE Comments: PATIENT WAS FASTINGPERFORMED BY: [employer] Kgjgig9180 [facility] [id number] (84407) ALT (SGPT) 18 [iU]/L (Normal) Range: 0-40 Alkaline Phosphatase, S 41 [iU]/L (Normal) Range: 25-165 AST (SGOT) 26 [iU]/L (Normal) Range: 0-40 A/G Ratio 1.5 (Normal) Range: 1.1-2.5 Bilirubin, Total 0.9 mg/dL (Normal) Range: 0.0-1.2 Globulin, Total 2.5 g/dL (Normal) Range: 1.5-4.5 Albumin, Serum 3.7 g/dL (Normal) Range: 3.5-4.8 Protein, Total, Serum 6.2 g/dL (Normal) Range: 6.0-8.5 Calcium, Serum 8.7 mg/dL (Normal) Range: 8.6-10.2 Carbon Dioxide, Total 26 mmol/L (Normal) Range: 20-32 Chloride, Serum 105 mmol/L (Normal) Range: 97-108 BUN/Creatinine Ratio 37 (Abnormal) Range: 8-27 Potassium, Serum 4.5 mmol/L (Normal) Range: 3.5-5.2 Sodium, Serum 141 mmol/L (Normal) Range: 135-145 eGFR AfricanAmerican >59 mL/min/1.73 Comments: Note: Persistent reduction for 3 months or more in an eGFR<60 mL/min/1.73 m2 defines CKD. Patients with eGFR values>/=60 mL/min/1.73 m2 may also have CKD if evidence of persistentproteinuria is (Normal) present. Additional information may be found atwww.kdoqi.org. eGFR >59 mL/min/1.73 (Normal) Creatinine, Serum 0.67 mg/dL (Normal) Range: 0.57-1.00 BUN 25 mg/dL (Normal) Range: 5-26 Glucose, Serum 108 mg/dL (Abnormal) Range: 65-99 :47 HgA1C , Office (40886) HgA1C , Office 6.8 % (Normal) Range: 4.6 - 7.1 :47 Blood Glucose , Office (39284) Blood Glucose , Office 107 (Normal) :59 PRO TIME INR 2.9 (Normal) PROTIME 29.9 s (Abnormal) Range: 9.1-11.7 :13 PRO TIME INR 3.4 (Normal) PROTIME 34.8 s (Abnormal) Range: 9.1-11.7 :05 PRO TIME INR 3.1 (Normal) PROTIME 32.0 s (Abnormal) Range: 9.1-11.7 :17 PRO TIME INR 2.4 (Normal) PROTIME 24.8 s (Abnormal) Range: 9.1-11.7 :46 INR ISTAT 1.40 (Normal) :46 PROTIME ISTAT 16.8 {SEC} (Normal) :42 PRO TIME INR 1.3 (Normal) PROTIME 13.0 s (Abnormal) Range: 9.1-11.7 :11 HAND,MIN 3 VIEWS (MT) Radiology Report See Note (Normal) Comments: Exam Number: [id number] CLINICAL:The patient is a 69-year-old female with history of dog bite. Mostbruising and lump is located lateral fourth the finger. There isswelling and bruising of the third, fou rth, and fifth fingers. X-RAY EXAMINATION HAND TECHNIQUE:Four views of the hand. COMPARISON:None. FINDINGS:.Bony structures are demineralized. There is mild degenerativechange. There is no fractur e or dislocation identified. There issoft tissue swelling which is most marked proximally in the ringfinger . These soft tissue swelling is more marked along the thanradial aspects of the finger. IMP RESSION:No fracture or dislocation is identified.Bony structures are demineralized.There is soft tissue swelling which is most marked in the proximalring finger. Reported By: GABRIEL REYES M.D. 0-Lja-082408:36 PRO TIME INR 5.6 (Abnormal) Comments: RESULTS CALLED TO TKIRBY 12/09/09 XOCHILT SCHERER.REPORT READ BACK BY SAME . PROTIME 57.6 s (Abnormal) Range: 9.1-11.7 6-Juc-240359:28 PRO TIME INR 2.3 (Normal) PROTIME 23.7 s (Abnormal) Range: 9.1-11.7 65-Nwx-961314:57 BEDSIDE GLU 139 mg/dL (Abnormal) Range: 70-110 Comments: Fasting Glucose result greater than or equal to 126 mg/dLsuggests DIABETES MELLITUS per A.D.A. criteria.Policy and Physicians Orders [id number] 62-Vad-896100:02 BEDSIDE GLU 113 mg/dL (Abnormal) Range: 70-110 Comments: Fasting Glucose result from 110 to <126 mg/dLsuggests IMPAIRED HOMEOSTASIS per A.D.A. criteria.Policy and Physicians Orders [id number] 80-Csn-613804:24 LEFT HEART CATH/COR/LV PERCUT Radiology Report See Note (Normal) Comments: Exam Number: [id number] Procedure completed. Please see MEDICAL RECORDS reports in PCI -OP - OP NOTELET - LETTER. Reported By: CYRIL ROBLES M.D. 50-Hsl-[id number] BMP BUN/CRE 35.0 {RATIO} (Abnormal) Range: 10-20 CA 9.1 mg/dL (Normal) Range: 8.5-10.1 CL 104 mmol/L (Normal) Range: 98-107 CO2 31.0 mmol/L (Normal) Range: 21.0-32.0 EST GFR - AA 127 mL/min (Normal) GAP 7 (Normal) Range: 5-15 K 3.9 mmol/L (Normal) Range: 3.5-5.1 NA 142 mmol/L (Normal) Range: 136-145 BUN 21 mg/dL (Abnormal) Range: 7-18 CREAT,SERUM 0.6 mg/dL (Normal) Range: 0.6-1.0 EST GFR 105 mL/min (Normal) GLU 107 mg/dL (Normal) Range: 70-110 [id number] CBC HCT 37.6 % (Normal) Range: 37-47 MCH 30.2 pg (Normal) Range: 27.0-32.0 MCHC 34.1 g/dL (Normal) Range: 32-36 MCV 88.4 fL (Normal) Range: 81-99 MPV 7.7 fL (Normal) Range: 6.5-12.0 PLT 256 K/mm3 (Normal) Range: 150-450 RDW 13.2 % (Normal) Range: 11.6-14.6 HGB 12.8 g/dL (Normal) Range: 12.0-16.0 RBC 4.25 {M/mm3} (Normal) Range: 4.2-5.4 WBC 11.4 K/mm3 (Abnormal) Range: 4.4-11.0 [id number] METABOLIC PANEL, Comments: PATIENT WAS FASTINGPERFORMED BY: [id number] [id number] Information: [id number] COMPREHENSIVE ([id number]) ALT (SGPT) 15 [iU]/L (Normal) Range: 0-40 Alkaline Phosphatase, S 53 [iU]/L (Normal) Range: 25-165 AST (SGOT) 18 [iU]/L (Normal) Range: 0-40 Bilirubin, Total 0.8 mg/dL (Normal) Range: 0.0-1.2 A/G Ratio 1.5 (Normal) Range: 1.1-2.5 Albumin, Serum 3.8 g/dL (Normal) Range: 3.6-4.8 Globulin, Total 2.6 g/dL (Normal) Range: 1.5-4.5 Calcium, Serum 8.9 mg/dL (Normal) Range: 8.6-10.2 Carbon Dioxide, Total 25 mmol/L (Normal) Range: 20-32 Protein, Total, Serum 6.4 g/dL (Normal) Range: 6.0-8.5 Chloride, Serum 104 mmol/L (Normal) Range: 97-108 Potassium, Serum 4.0 mmol/L (Normal) Range: 3.5-5.2 Sodium, Serum 141 mmol/L (Normal) Range: 135-145 BUN/Creatinine Ratio 32 (Abnormal) Range: 8-27 eGFR >59 mL/min/1.73 (Normal) eGFR AfricanAmerican >59 mL/min/1.73 Comments: Note: Persistent reduction for 3 months or more in an eGFR<60 mL/min/1.73 m2 defines CKD. Patients with eGFR values>/=60 mL/min/1.73 m2 may also have CKD if evidence of persistentproteinuria is (Normal) present. Additional information may be found [email or web address]. Creatinine, Serum 0.68 mg/dL (Normal) Range: 0.57-1.00 BUN 22 mg/dL (Normal) Range: 5-26 Glucose, Serum 105 mg/dL (Abnormal) Range: 65-99 29-Squ-982558:25 LIPID PANEL (31651) Comments: PATIENT WAS FASTINGPERFORMED BY: [employer] [facility]Former[facility] [id number] LDL Cholesterol Calc 50 mg/dL (Normal) Range: 0-99 LDL/HDL Ratio 1.2 {ratio_units} (Normal) Range: 0.0-3.2 VLDL Cholesterol Drew 22 mg/dL (Normal) Range: 5-40 Cholesterol, Total 114 mg/dL (Normal) Range: 100-199 HDL Cholesterol 42 mg/dL (Normal) Comments: According to ATP-III Guidelines, HDL-C >59 mg/dL is considered anegative risk factor for CHD. Triglycerides 109 mg/dL (Normal) Range: 0-149 68-Sdv-875574:25 MICROALBUMIN: CREATININE RATIO Comments: PATIENT WAS FASTINGPERFORMED BY: [employer]6370 [facility] [id number] ([id number]) AND (86098) Microalb/Creat Ratio 7.4 {mg/g_creat} (Normal) Range: 0.0-30.0 Microalbumin, Urine 9.9 ug/mL (Normal) Range: 0.0-17.0 Creatinine, Urine 134.6 mg/dL (Normal) Range: 15.0-278.0 23-Jdp-875758:17 HgA1C , Office (41873) HgA1C , Office 6.5 % (Normal) Range: 4.6 - 7.1 22-Xmq-520970:17 Blood Glucose , Office (51636) Blood Glucose , Office 114 (Normal) 35-Aut-403293:07 TSH (88468) Comments: PATIENT WAS FASTINGPERFORMED BY: [facility]6[address] [facility] [id number] TSH 3.630 {uIU/mL} (Normal) Range: 0.450-4.500 53-Srk-101021:07 METABOLIC PANEL, Comments: PATIENT WAS FASTINGPERFORMED BY: [facility]6[address] [facility] [id number] Information: [id number] COMPREHENSIVE (75521) Alkaline Phosphatase, S 47 [iU]/L (Normal) Range: 25-165 ALT (SGPT) 18 [iU]/L (Normal) Range: 0-40 AST (SGOT) 21 [iU]/L (Normal) Range: 0-40 A/G Ratio 1.5 (Normal) Range: 1.1-2.5 Albumin, Serum 4.1 g/dL (Normal) Range: 3.6-4.8 Bilirubin, Total 1.1 mg/dL (Normal) Range: 0.1-1.2 Comments: Effective October 27, 2009, Bilirubin, Total,reference interval will be changing to: mg/dLNewborns, term and near term:24 hours old: 0.0 - 8.048 hours old: 0.0 - 13.272 hours old: 0.0 - 15.696 hours to 1 month old: 0.0 - 16.6Children 1 month and older andAdults: 0.0 - 1.2.*Panic value will be changed such that results*>17.0 mg/dL will be called as panics. Globulin, Total 2.8 g/dL (Normal) Range: 1.5-4.5 Calcium, Serum 9.5 mg/dL (Normal) Range: 8.6-10.2 Carbon Dioxide, Total 24 mmol/L (Normal) Range: 20-32 Protein, Total, Serum 6.9 g/dL (Normal) Range: 6.0-8.5 BUN/Creatinine Ratio 24 (Normal) Range: 8-27 Chloride, Serum 105 mmol/L (Normal) Range: 97-108 Potassium, Serum 4.3 mmol/L (Normal) Range: 3.5-5.2 Sodium, Serum 144 mmol/L (Normal) Range: 135-145 eGFR >59 mL/min/1.73 (Normal) eGFR AfricanAmerican >59 mL/min/1.73 Comments: Note: Persistent reduction for 3 months or more in an eGFR<60 mL/min/1.73 m2 defines CKD. Patients with eGFR values>/=60 mL/min/1.73 m2 may also have CKD if evidence of persistentproteinuria is (Normal) present. Additional information may be found [email or web address]. BUN 16 mg/dL (Normal) Range: 5-26 Creatinine, Serum 0.66 mg/dL (Normal) Range: 0.57-1.00 Glucose, Serum 121 mg/dL (Abnormal) Range: 65-99 96-Tdk-862441:07 LIPID PANEL (58718) Comments: PATIENT WAS FASTINGPERFORMED BY: [facility]6370 [facility] [id number] HDL Cholesterol 55 mg/dL (Normal) Comments: According to ATP-III Guidelines, HDL-C >59 mg/dL is considered anegative risk factor for CHD. LDL Cholesterol Calc 45 mg/dL (Normal) Range: 0-99 LDL/HDL Ratio 0.8 {ratio_units} (Normal) Range: 0.0-3.2 VLDL Cholesterol Drew 17 mg/dL (Normal) Range: 5-40 Cholesterol, Total 117 mg/dL (Normal) Range: 100-199 Triglycerides 86 mg/dL (Normal) Range: 0-149 63-Anw-580882:16 HgA1C , Office (63236) HgA1C , Office 7.1 % (Normal) Range: 4.6 - 7.1 59-Nrl-673376:16 Blood Glucose , Office (35516) Blood Glucose , Office 105 (Normal) 15-Uwe-01695:43 CHEST, PA AND LATERAL (MT) Radiology Report See Note (Normal) Comments: Exam Number: [id number] PA AND LATERAL CHEST No interval change is demonstrated from a previous study of November with no evidence of active pulmonary or pleural disease. Pericardial silhouette remain s in the upper limits of normal. IMPRESSIONNo evidence of active pulmonary disease. Reported By: BRADEN HOLLOWAY M.D. 29-Xli-586637:43 METABOLIC PANEL, Comments: PATIENT WAS FASTINGPERFORMED BY: LabCoMeadowlands Hospital Medical CenterJglwaf8484 [facility] [id number] Information: [id number] COMPREHENSIVE (26227) ALT (SGPT) 11 [iU]/L (Normal) Range: 0-40 AST (SGOT) 17 [iU]/L (Normal) Range: 0-40 A/G Ratio 1.5 (Normal) Range: 1.1-2.5 Albumin, Serum 4.1 g/dL (Normal) Range: 3.6-4.8 Alkaline Phosphatase, S 51 [iU]/L (Normal) Range: 25-165 Bilirubin, Total 0.7 mg/dL (Normal) Range: 0.1-1.2 Globulin, Total 2.8 g/dL (Normal) Range: 1.5-4.5 Calcium, Serum 9.7 mg/dL (Normal) Range: 8.6-10.2 Carbon Dioxide, Total 23 mmol/L (Normal) Range: 20-32 Protein, Total, Serum 6.9 g/dL (Normal) Range: 6.0-8.5 Chloride, Serum 105 mmol/L (Normal) Range: 97-108 BUN/Creatinine Ratio 31 (Abnormal) Range: 8-27 Potassium, Serum 4.4 mmol/L (Normal) Range: 3.5-5.2 Sodium, Serum 142 mmol/L (Normal) Range: 135-145 Creatinine, Serum 0.67 mg/dL (Normal) Range: 0.57-1.00 eGFR >59 mL/min/1.73 (Normal) eGFR AfricanAmerican >59 mL/min/1.73 Comments: Note: Persistent reduction for 3 months or more in an eGFR<60 mL/min/1.73 m2 defines CKD. Patients with eGFR values>/=60 mL/min/1.73 m2 may also have CKD if evidence of persistentproteinuria is (Normal) present. Additional information may be found [email or web address]. BUN 21 mg/dL (Normal) Range: 5-26 Glucose, Serum 98 mg/dL (Normal) Range: 65-99 78-Zmr-289882:43 LIPID PANEL (08351) Comments: PATIENT WAS FASTINGPERFORMED BY: [facility]6[address] [facility] [id number] LDL Cholesterol Calc 49 mg/dL (Normal) Range: 0-99 LDL/HDL Ratio 1.0 {ratio_units} (Normal) Range: 0.0-3.2 Cholesterol, Total 119 mg/dL (Normal) Range: 100-199 HDL Cholesterol 50 mg/dL (Normal) Comments: According to ATP-III Guidelines, HDL-C >59 mg/dL is considered anegative risk factor for CHD. Triglycerides 99 mg/dL (Normal) Range: 0-149 VLDL Cholesterol Drew 20 mg/dL (Normal) Range: 5-40 68-Xlr-417317:43 TSH (05371) Comments: PATIENT WAS FASTINGPERFORMED BY: [facility] CenterGeoLearningMeadowlands Hospital Medical CenterUejdbt4109 [facility] [id number] TSH 3.500 {uIU/mL} (Normal) Range: 0.450-4.500 Comments: Effective July 28, 2009, TSH reference interval for11 - 19 years will be changing to: 0.450 - 4.500 uIU/mLReference interval for all other ages will NOT be affected. :49 HgA1C , Office (01668) HgA1C , Office 6.1 % (Normal) Range: 4.6 - 7.1 :49 Blood Glucose , Office (42122) Blood Glucose , Office 127 (Normal) 95-Mjm-04153:00 LIPID PANEL (21147) Comments: PATIENT WAS FASTINGPERFORMED BY: LabCoMeadowlands Hospital Medical CenterZaqaha1844 [facility] [id number] Cholesterol, Total 112 mg/dL (Normal) Range: 100-199 HDL Cholesterol 42 mg/dL (Normal) Comments: According to ATP-III Guidelines, HDL-C >59 mg/dL is considered anegative risk factor for CHD. LDL Cholesterol Calc 48 mg/dL (Normal) Range: 0-99 LDL/HDL Ratio 1.1 {ratio_units} (Normal) Range: 0.0-3.2 Triglycerides 109 mg/dL (Normal) Range: 0-149 VLDL Cholesterol Drew 22 mg/dL (Normal) Range: 5-40 :00 METABOLIC PANEL, COMPREHENSIVE Comments: PATIENT WAS FASTINGPERFORMED BY: RYLIE [employer] Duqtxr2993 [facility] [id number] (73302) A/G Ratio 1.6 (Normal) Range: 1.1-2.5 Albumin, Serum 4.1 g/dL (Normal) Range: 3.6-4.8 Alkaline Phosphatase, S 55 [iU]/L (Normal) Range: 25-165 ALT (SGPT) 17 [iU]/L (Normal) Range: 0-40 AST (SGOT) 22 [iU]/L (Normal) Range: 0-40 Bilirubin, Total 0.8 mg/dL (Normal) Range: 0.1-1.2 BUN 20 mg/dL (Normal) Range: 5-26 BUN/Creatinine Ratio 32 (Abnormal) Range: 8-27 Calcium, Serum 9.3 mg/dL (Normal) Range: 8.5-10.6 Carbon Dioxide, Total 26 mmol/L (Normal) Range: 20-32 Chloride, Serum 104 mmol/L (Normal) Range: 97-108 Creatinine, Serum 0.62 mg/dL (Normal) Range: 0.57-1.00 eGFR >59 mL/min/1.73 (Normal) eGFR AfricanAmerican >59 mL/min/1.73 Comments: Note: Persistent reduction for 3 months or more in an eGFR<60 mL/min/1.73 m2 defines CKD. Patients with eGFR values>/=60 mL/min/1.73 m2 may also have CKD if evidence of persistentproteinuria is (Normal) present. Additional information may be found [email or web address]. Globulin, Total 2.5 g/dL (Normal) Range: 1.5-4.5 Glucose, Serum 106 mg/dL (Abnormal) Range: 65-99 Potassium, Serum 4.4 mmol/L (Normal) Range: 3.5-5.2 Protein, Total, Serum 6.6 g/dL (Normal) Range: 6.0-8.5 Sodium, Serum 142 mmol/L (Normal) Range: 135-145 :00 CBC WITH MANUAL DIFF (10264) Comments: PATIENT WAS FASTINGClinical Information: [id number] PERFORMED BY: [employer]IE [employer]6370 [facility] [id number] Baso (Absolute) 0.1 {x10E3/uL} (Normal) Range: 0.0-0.2 Basos 1 % (Normal) Range: 0-3 Eos 3 % (Normal) Range: 0-7 Eos (Absolute) 0.3 {x10E3/uL} (Normal) Range: 0.0-0.4 Hematocrit 37.3 % (Normal) Range: 34.0-44.0 Hemoglobin 12.6 g/dL (Normal) Range: 11.5-15.0 Lymphs 34 % (Normal) Range: 14-46 Lymphs (Absolute) 2.9 {x10E3/uL} (Normal) Range: 0.7-4.5 MCH 31.1 pg (Normal) Range: 27.0-34.0 MCHC 33.7 g/dL (Normal) Range: 32.0-36.0 MCV 93 fL (Normal) Range: 80-98 Monocytes 9 % (Normal) Range: 4-13 Monocytes(Absolute) 0.8 {x10E3/uL} (Normal) Range: 0.1-1.0 Neutrophils 53 % (Normal) Range: 40-74 Neutrophils (Absolute) 4.6 {x10E3/uL} (Normal) Range: 1.8-7.8 Platelets 231 {x10E3/uL} (Normal) Range: 140-415 RBC 4.03 {x10E6/uL} (Normal) Range: 3.80-5.10 RDW 13.9 % (Normal) Range: 11.7-15.0 WBC 8.6 {x10E3/uL} (Normal) Range: 4.0-10.5 :00 TSH (37776) Comments: PATIENT WAS FASTINGPERFORMED BY: LabCoMeadowlands Hospital Medical CenterEchruw8146 [facility] [id number] TSH 7.360 {uIU/mL} (Abnormal) Range: 0.450-4.500 :30 HgA1C , Office (83212) HgA1C , Office 6.5 % (Normal) Range: 4.6 - 7.1 :30 Blood Glucose , Office (85374) Blood Glucose , Office 126 (Normal) :35 CBC With Differential/Platelet Comments: PATIENT WAS FASTINGPERFORMED BY: LabCoMeadowlands Hospital Medical CenterIihlto4261 [facility] [id number] Baso (Absolute) 0.1 {x10E3/uL} (Normal) Range: 0.0-0.2 Basos 1 % (Normal) Range: 0-3 Eos 5 % (Normal) Range: 0-7 Eos (Absolute) 0.3 {x10E3/uL} (Normal) Range: 0.0-0.4 Hematocrit 35.6 % (Normal) Range: 34.0-44.0 Hemoglobin 12.3 g/dL (Normal) Range: 11.5-15.0 Lymphs 39 % (Normal) Range: 14-46 Lymphs (Absolute) 2.5 {x10E3/uL} (Normal) Range: 0.7-4.5 MCH 31.8 pg (Normal) Range: 27.0-34.0 MCHC 34.4 g/dL (Normal) Range: 32.0-36.0 MCV 92 fL (Normal) Range: 80-98 Monocytes 9 % (Normal) Range: 4-13 Monocytes(Absolute) 0.6 {x10E3/uL} (Normal) Range: 0.1-1.0 Neutrophils 46 % (Normal) Range: 40-74 Neutrophils (Absolute) 2.9 {x10E3/uL} (Normal) Range: 1.8-7.8 Platelets 218 {x10E3/uL} (Normal) Range: 140-415 RBC 3.87 {x10E6/uL} (Normal) Range: 3.80-5.10 RDW 13.9 % (Normal) Range: 11.7-15.0 WBC 6.4 {x10E3/uL} (Normal) Range: 4.0-10.5 :35 Comp. Metabolic Panel (14) Comments: PATIENT WAS FASTINGPERFORMED BY: LabCoMeadowlands Hospital Medical CenterKtthiw7007 [facility] [id number] A/G Ratio 1.4 (Normal) Range: 1.1-2.5 Albumin, Serum 3.9 g/dL (Normal) Range: 3.6-4.8 Alkaline Phosphatase, S 49 [iU]/L (Normal) Range: 25-165 ALT (SGPT) 14 [iU]/L (Normal) Range: 0-40 AST (SGOT) 25 [iU]/L (Normal) Range: 0-40 Bilirubin, Total 0.9 mg/dL (Normal) Range: 0.1-1.2 BUN 19 mg/dL (Normal) Range: 5-26 BUN/Creatinine Ratio 30 (Abnormal) Range: 8-27 Calcium, Serum 9.2 mg/dL (Normal) Range: 8.5-10.6 Carbon Dioxide, Total 24 mmol/L (Normal) Range: 20-32 Chloride, Serum 106 mmol/L (Normal) Range: 97-108 Creatinine, Serum 0.64 mg/dL (Normal) Range: 0.57-1.00 eGFR >59 mL/min/1.73 (Normal) eGFR AfricanAmerican >59 mL/min/1.73 Comments: Note: Persistent reduction for 3 months or more in an eGFR<60 mL/min/1.73 m2 defines CKD. Patients with eGFR values>/=60 mL/min/1.73 m2 may also have CKD if evidence of persistentproteinuria is (Normal) present. Additional information may be found [email or web address]. Globulin, Total 2.7 g/dL (Normal) Range: 1.5-4.5 Glucose, Serum 108 mg/dL (Abnormal) Range: 65-99 Potassium, Serum 4.3 mmol/L (Normal) Range: 3.5-5.2 Protein, Total, Serum 6.6 g/dL (Normal) Range: 6.0-8.5 Sodium, Serum 142 mmol/L (Normal) Range: 135-145 04-Qqb-72790:35 Lipid Panel With LDL/HDL Comments: PATIENT WAS FASTINGPERFORMED BY: LabCoMeadowlands Hospital Medical CenterKnqggf5003 [facility] [id number] Ratio Cholesterol, Total 152 mg/dL (Normal) Range: 100-199 HDL Cholesterol 43 mg/dL (Normal) Comments: According to ATP-III Guidelines, HDL-C >59 mg/dL is considered anegative risk factor for CHD. LDL Cholesterol Calc 86 mg/dL (Normal) Range: 0-99 LDL/HDL Ratio 2.0 {ratio_units} (Normal) Range: 0.0-3.2 Triglycerides 113 mg/dL (Normal) Range: 0-149 VLDL Cholesterol Drew 23 mg/dL (Normal) Range: 5-40 :35 Microalb/Creat Ratio, Randm Ur Comments: PATIENT WAS FASTINGPERFORMED BY: Better ATM ServicesMeadowlands Hospital Medical CenterNbiirj2935 [facility] [id number] Creatinine, Urine 118.6 mg/dL Range: 15.0-278.0 (Normal) Microalb/Creat Ratio 2.6 {ug/mg_creat} Range: 0.0-30.0 (Normal) Microalbumin, Urine 3.1 ug/mL (Normal) Range: 0.0-17.0 : TSH 5.690 {uIU/mL} Comments: PATIENT WAS FASTINGPERFORMED BY: [employer] [id number] 35 (Abnormal) Range: 0.450-4.500 :29 TSH (80206) Comments: PATIENT NOT FASTINGClinical Information: ADD DRAW FEE [id number] ADD J 10914 PERFORMED BY: [employer] [id number] TSH 4.407 {uIU/mL} (Normal) Range: 0.450-4.500 :04 HgA1C , Office (50775) HgA1C , Office 6.5 % (Normal) Range: 4.6 - 7.1 :04 Blood Glucose , Office (02884) Blood Glucose , Office 110 (Normal) :35 UNILAT RT DIAG DIGITAL & CAD Radiology Report See Note (Normal) Comments: Exam Number: [id number] MAMMOGRAM, UNILATERAL RIGHT DIAGNOSTIC DIGITAL AND CAD HISTORYAbnormal screening study. Full field digital images were obtained in true lateral and in mediolateral obl ique and experimental aircraft mechanic niocaudal spot compressionviews. The current study is compared to the examinations of June,June, and August 12, 2008. There is moderately dense fibroglandular parenchyma present. Th ere isno skin thickening or retraction, architectural distortion, or clusterof suspicious microcalcifications. There are numerous scatteredbenign calcifications present. What appeared to be a new dens ity inthe retroareolar area of the breast on the mediolateral obliqueprojection of August 12, 2008, is not a persistent finding. Thisarea of density, therefore, represented superimposition. If there isno suspicious palpable abnormality, followup mammogram in 1 year isrecommended. IMPRESSIONThere is no radiographic evidence of malignancy identified. FINAL ASSESSMENTBenign findings. BIRADS Category 2. A letter regarding these results has been sent to the patient. This interpretation was rendered by a radiologist certified under theMammography Quality Standards Act of 1992 (MQSA). The mammogram s werealso examined with computer-aided detection software ([employer] Reported By: GABRIEL REYES M.D. 12-Aug-20089:22 BILAT SCRN DIGITAL & CAD Radiology Report See Note (Normal) Comments: Exam Number: [id number] MAMMOGRAM, BILATERAL SCREENING DIGITAL AND CAD HISTORYRoutine screening. Full field digital images were obtained in mediolateral oblique andcraniocaudal projections. CAD images w ere reviewed. The current study is compared to the examinations of June 2006 andJune 2007. There is moderately dense fibroglandular parenchyma present. There isno skin thickening or retraction, architectural distortion, or clusterof suspicious microcalcifications. There are scattered benigncalcifications present bilaterally. On the right, there is anirregular density in the mediolateral ob lique projection in theanterior depth just inferior to the plane of the nipple. This is notidentified with certainty on previous studies. Right true lateral andspot mediolateral oblique projections ar e recommended. IMPRESSIONPossible new density on the right. Additional views are recommended. FINAL ASSESSMENTNeed additional imaging evaluation. BIRADS Category 0. A letter regarding these results h as been sent to the patient. This interpretation was rendered by a radiologist certified under theMammography Quality Standards Act of 1992 (MQSA). The mammograms werealso examined with computer-aided detection software ([employer] Reported By: GABRIEL REYES M.D. 44-Dey-132554:50 LIPID PANEL (63175) Comments: PATIENT WAS FASTINGPERFORMED BY: [facility]6370 [facility] [id number] Cholesterol, Total 134 mg/dL (Normal) Range: 100-199 HDL Cholesterol 46 mg/dL (Normal) Comments: According to ATP-III Guidelines, HDL-C >59 mg/dL is considered anegative risk factor for CHD. LDL Cholesterol Calc 70 mg/dL (Normal) Range: 0-99 LDL/HDL Ratio 1.5 {ratio_units} (Normal) Range: 0.0-3.2 Triglycerides 92 mg/dL (Normal) Range: 0-149 VLDL Cholesterol Drew 18 mg/dL (Normal) Range: 5-40 08-Neb-682852:50 MICROALBUMIN: CREATININE RATIO Comments: PATIENT WAS FASTINGPERFORMED BY: [employer] [facility] [id number] (55015) AND (70506) Creatinine, Urine 107.1 mg/dL (Normal) Range: 15.0-278.0 Microalb/Creat Ratio 5.6 {ug/mg_creat} (Normal) Range: 0.0-30.0 Microalbum.,U,Random 6.0 ug/mL (Normal) Range: 0.0-17.0 55-Fwh-003243:50 TSH (74236) Comments: PATIENT WAS FASTINGPERFORMED BY: [employer] [facility] [id number] TSH 4.641 {uIU/mL} (Abnormal) Range: 0.450-4.500 59-Blf-027748:50 METABOLIC PANEL, COMPREHENSIVE Comments: PATIENT WAS FASTINGClinical Information: ADD DRAW FEE [id number] ADD J 33882 PERFORMED BY: [employer] [facility] [id number] (74805) A/G Ratio 1.3 (Normal) Range: 1.1-2.5 Albumin, Serum 3.9 g/dL (Normal) Range: 3.6-4.8 Alkaline Phosphatase, S 53 [iU]/L (Normal) Range: 25-165 ALT (SGPT) 14 [iU]/L (Normal) Range: 0-40 AST (SGOT) 22 [iU]/L (Normal) Range: 0-40 Bilirubin, Total 0.8 mg/dL (Normal) Range: 0.1-1.2 BUN 19 mg/dL (Normal) Range: 5-26 BUN/Creatinine Ratio 28 (Abnormal) Range: 8-27 Calcium, Serum 9.1 mg/dL (Normal) Range: 8.5-10.6 Carbon Dioxide, Total 26 mmol/L (Normal) Range: 20-32 Chloride, Serum 106 mmol/L (Normal) Range: 97-108 Creatinine, Serum 0.67 mg/dL (Normal) Range: 0.57-1.00 Globulin, Total 2.9 g/dL (Normal) Range: 1.5-4.5 Glom Filt Rate, Est >59 mL/min/1.73 (Normal) Glucose, Serum 115 mg/dL (Abnormal) Range: 65-99 If -Colombian >59 mL/min/1.73 Comments: Note: Persistent reduction for 3 months or more in an eGFR<60 mL/min/1.73 m2 defines CKD. Patients with eGFR values>/=60 mL/min/1.73 m2 may also have CKD if evidence of persistentproteinur ia is (Normal) present. Additional information may be found [email or web address]. Potassium, Serum 4.5 mmol/L (Normal) Range: 3.5-5.2 Protein, Total, Serum 6.8 g/dL (Normal) Range: 6.0-8.5 Sodium, Serum 143 mmol/L (Normal) Range: 135-145 :19 HgA1C , Office (14198) HgA1C , Office 6.0 % (Normal) Range: 4.6 - 7.1 :19 Blood Glucose , Office (64447) Blood Glucose , Office 100 (Normal) 58-Qul-210921:10 LIPID CHOL 125 mg/dL (Normal) Comments: <200 mg/dL Desirable 200-240 mg/dL Borderline >240 mg/dL High Risk HDL 43 mg/dL (Normal) Comments: Reference Range HDL <40 mg/dL Low HDL Cholesterol HDL >or= 60 mg/dL High HDL Cholesterol LDL 65 mg/dL (Normal) Range: 0-130 TRIG 85 mg/dL (Normal) Comments: Serum Triglycerides Reference Interval Normal <150 mg/dL Borderline high 150 - 199 mg/dL High 200 - 499 mg/dL Very High > or = 500 mg/dL VLDL 17 mg/dL (Normal) Range: 5-40 :10 LIVER ALB 3.3 g/dL (Abnormal) Range: 3.4-5.0 ALK P 54 U/L (Normal) Range: 50-136 ALT 34 U/L (Normal) Range: 30-65 AST 23 U/L (Normal) Range: 15-37 D BILI 0.14 mg/dL (Normal) Range: 0.00-0.30 T BILI 0.75 mg/dL (Normal) Range: 0.00-1.00 T PROT 6.9 g/dL (Normal) Range: 6.4-8.2 :32 HgA1C , Office (84240) HgA1C , Office 6.1 % (Normal) Range: 4.6 - 7.1 :32 Blood Glucose , Office (55809) Blood Glucose , Office 102 (Normal) :39 CBC With Differential/Platelet Comments: PATIENT WAS FASTINGPERFORMED BY: LabCoMeadowlands Hospital Medical CenterGxuhzy4590 [facility] [id number] Baso (Absolute) 0.1 {x10E3/uL} (Normal) Range: 0.0-0.2 Basos 1 % (Normal) Range: 0-3 Eos 4 % (Normal) Range: 0-7 Eos (Absolute) 0.3 {x10E3/uL} (Normal) Range: 0.0-0.4 Hematocrit 37.0 % (Normal) Range: 34.0-44.0 Hemoglobin 12.4 g/dL (Normal) Range: 11.5-15.0 Lymphs 40 % (Normal) Range: 14-46 Lymphs (Absolute) 3.1 {x10E3/uL} (Normal) Range: 0.7-4.5 MCH 30.5 pg (Normal) Range: 27.0-34.0 MCHC 33.5 g/dL (Normal) Range: 32.0-36.0 MCV 91 fL (Normal) Range: 80-98 Monocytes 10 % (Normal) Range: 4-13 Monocytes(Absolute) 0.8 {x10E3/uL} (Normal) Range: 0.1-1.0 Neutrophils 45 % (Normal) Range: 40-74 Neutrophils (Absolute) 3.5 {x10E3/uL} (Normal) Range: 1.8-7.8 Platelets 230 {x10E3/uL} (Normal) Range: 140-415 RBC 4.07 {x10E6/uL} (Normal) Range: 3.80-5.10 RDW 14.0 % (Normal) Range: 11.7-15.0 WBC 7.7 {x10E3/uL} (Normal) Range: 4.0-10.5 83-Tee-520924:39 Comp. Metabolic Panel (14) Comments: PATIENT WAS FASTINGPERFORMED BY: LabCoMeadowlands Hospital Medical CenterWbppan2788 [facility] [id number] A/G Ratio 1.3 (Normal) Range: 1.1-2.5 Albumin, Serum 4.0 g/dL (Normal) Range: 3.6-4.8 Alkaline Phosphatase, S 49 [iU]/L (Normal) Range: 25-165 ALT (SGPT) 16 [iU]/L (Normal) Range: 0-40 AST (SGOT) 22 [iU]/L (Normal) Range: 0-40 Bilirubin, Total 1.1 mg/dL (Normal) Range: 0.1-1.2 BUN 26 mg/dL (Normal) Range: 5-26 BUN/Creatinine Ratio 37 (Abnormal) Range: 8-27 Calcium, Serum 9.8 mg/dL (Normal) Range: 8.5-10.6 Carbon Dioxide, Total 25 mmol/L (Normal) Range: 20-32 Chloride, Serum 106 mmol/L (Normal) Range: 97-108 Creatinine, Serum 0.70 mg/dL (Normal) Range: 0.57-1.00 Globulin, Total 3.1 g/dL (Normal) Range: 1.5-4.5 Glom Filt Rate, Est >60 mL/min/1.73 Range: 60-128 (Normal) Glucose, Serum 104 mg/dL (Abnormal) Range: 65-99 If -Colombian >60 mL/min/1.73 Range: 60-128 (Normal) Comments: Note: Persistent reduction for 3 months or more in an eGFR<60 mL/min/1.73 m2 defines CKD. Patients with eGFR values>/=60 mL/min/1.73 m2 may also have CKD if evidence of persistentproteinuria is present. Additional information may be found [email or web address]. Potassium, Serum 4.7 mmol/L (Normal) Range: 3.5-5.2 Protein, Total, Serum 7.1 g/dL (Normal) Range: 6.0-8.5 Sodium, Serum 144 mmol/L (Normal) Range: 135-145 :39 Lipid Panel With LDL/HDL Comments: PATIENT WAS FASTINGPERFORMED BY: [facility] [id number] Ratio Cholesterol, Total 164 mg/dL (Normal) Range: 100-199 Comment SPRCS (Normal) Comments: If initial LDL-cholesterol result is >100 mg/dL, assess forrisk factors. HDL Cholesterol 48 mg/dL (Normal) Range: 40-59 LDL Cholesterol Calc 101 mg/dL Range: 0-99 (Abnormal) LDL/HDL Ratio 2.1 {ratio_units} Range: 0.0-3.2 (Normal) Triglycerides 76 mg/dL (Normal) Range: 0-149 VLDL Cholesterol Drew 15 mg/dL (Normal) Range: 5-40 TSH 3.372 {uIU/mL} Comments: PATIENT WAS FASTINGPERFORMED BY: [facility] [id number] :39 (Normal) Range: 0.450-4.500 Comments: Please note reference interval change :55 CBC WITH MANUAL DIFF ([id number]) Comments: PATIENT WAS FASTINGClinical Information: ADD DRAW FEE [id number] ADD J [id number] PERFORMED BY: [facility] [id number] Baso (Absolute) 0.1 {x10E3/uL} (Normal) Range: 0.0-0.2 Basos 1 % (Normal) Range: 0-3 Eos 3 % (Normal) Range: 0-7 Eos (Absolute) 0.2 {x10E3/uL} (Normal) Range: 0.0-0.4 Hematocrit 36.8 % (Normal) Range: 34.0-44.0 Hemoglobin 12.5 g/dL (Normal) Range: 11.5-15.0 Lymphs 32 % (Normal) Range: 14-46 Lymphs (Absolute) 2.5 {x10E3/uL} (Normal) Range: 0.7-4.5 MCH 31.1 pg (Normal) Range: 27.0-34.0 MCHC 33.9 g/dL (Normal) Range: 32.0-36.0 MCV 92 fL (Normal) Range: 80-98 Monocytes 8 % (Normal) Range: 4-13 Monocytes(Absolute) 0.6 {x10E3/uL} (Normal) Range: 0.1-1.0 Neutrophils 56 % (Normal) Range: 40-74 Neutrophils (Absolute) 4.4 {x10E3/uL} (Normal) Range: 1.8-7.8 Platelets 221 {x10E3/uL} (Normal) Range: 140-415 RBC 4.01 {x10E6/uL} (Normal) Range: 3.80-5.10 RDW 14.5 % (Normal) Range: 11.7-15.0 WBC 7.8 {x10E3/uL} (Normal) Range: 4.0-10.5 :55 LIPID PANEL (67989) Comments: PATIENT WAS FASTINGPERFORMED BY: [facility] DigitalMead[facility] Medical CenterNeapuc1777 [facility] [id number] Cholesterol, Total 145 mg/dL (Normal) Range: 100-199 HDL Cholesterol 49 mg/dL (Normal) Range: 40-59 LDL Cholesterol Calc 80 mg/dL (Normal) Range: 0-99 LDL/HDL Ratio 1.6 {ratio_units} (Normal) Range: 0.0-3.2 Triglycerides 78 mg/dL (Normal) Range: 0-149 VLDL Cholesterol Drew 16 mg/dL (Normal) Range: 5-40 :55 METABOLIC PANEL, COMPREHENSIVE Comments: PATIENT WAS FASTINGPERFORMED BY: [facility] DigitalMead[facility] Medical CenterMojnzh8075 [facility] [id number] ([id number]) A/G Ratio 1.4 (Normal) Range: 1.1-2.5 Albumin, Serum 4.0 g/dL (Normal) Range: 3.6-4.8 Alkaline Phosphatase, S 51 [iU]/L (Normal) Range: 25-165 ALT (SGPT) 16 [iU]/L (Normal) Range: 0-40 AST (SGOT) 23 [iU]/L (Normal) Range: 0-40 Bilirubin, Total 0.9 mg/dL (Normal) Range: 0.1-1.2 BUN 27 mg/dL (Abnormal) Range: 5-26 BUN/Creatinine Ratio 39 (Abnormal) Range: 8-27 Calcium, Serum 9.7 mg/dL (Normal) Range: 8.5-10.6 Carbon Dioxide, Total 28 mmol/L (Normal) Range: 20-32 Chloride, Serum 103 mmol/L (Normal) Range: 97-108 Creatinine, Serum 0.70 mg/dL (Normal) Range: 0.50-1.50 Globulin, Total 2.8 g/dL (Normal) Range: 1.5-4.5 Glom Filt Rate, Est >60 mL/min (Normal) Range: 60-128 Glucose, Serum 101 mg/dL (Abnormal) Range: 65-99 If -Colombian >60 mL/min (Normal) Range: 60-128 Comments: Note: Persistent reduction for 3 months or more in an eGFR<60 mL/min/1.73 m2 defines CKD. Patients with eGFR values>/=60 mL/min/1.73 m2 may also have CKD if evidence of persistentproteinuria is present. Additional information may be found [email or web address]. Potassium, Serum 4.6 mmol/L (Normal) Range: 3.5-5.2 Protein, Total, Serum 6.8 g/dL (Normal) Range: 6.0-8.5 Sodium, Serum 141 mmol/L (Normal) Range: 135-145 :55 TSH (28298) Comments: PATIENT WAS FASTINGPERFORMED BY: LabCoMeadowlands Hospital Medical CenterBaguvd6381 [facility] [id number] TSH 3.447 {uIU/mL} (Normal) Range: 0.350-5.500 Comments: Adult TSH concentrations below 5.5 uIU/mL do not rule out the presence of subclinical hypothyroidism. :31 HgA1C , Office (53404) HgA1C , Office 5.9 % (Normal) Range: 4.6 - 7.1 :31 Blood Glucose , Office (64972) Blood Glucose , Office 100 (Normal) 52-Kmj-910322:40 DEXA BONE DENSITY STUDY () Radiology Report See Note (Normal) Comments: Exam Number: [id number] BONE DENSITOMETRY HISTORYPostmenopausal. TECHNIQUE Bone densitometry of the lumbar spine and left hip was performed. Thebest criteria for evaluation of osteoporosis is the T- value, whichrepresents the comparison of the patient's bone mass to an expectedpeak bone mass. For most patients, the mean T-value of L1 through L4is used to evaluate the lumbar spine. Based on the [facility] WorldHealth Organization classifications, the hip is evaluated by utilizingthe lower of the T-value of the total hip or the T-value of thefemoral neck. FINDINGSIn this patient, the mean T-value o f L1 through L4 is -0.2 which isnormal. Digital lateral view for evaluation of vertebral deformityonly demonstrates no obvious compression fractures. Bone mineraldensity is measured at 6.9% less than in 2001 and 3.3% less than [id number]. The T-value of the left femoral neck is -1 which is low normal.The T-value of the total left hip is 0.4 which is normal. Bonemineral density of the total left hip is measured at 3.6% less than [id number] and 1.8% more than in 2006. IMPRESSIONBone densitometry of the lumbar spine and left hip are within normallimits. Reported By: GABRIEL REYES M.D. 35-Pfl-268757:19 LIPID CHOL 126 mg/dL (Normal) Comments: <200 mg/dL Desirable 200-240 mg/dL Borderline >240 mg/dL High Risk HDL 45 mg/dL (Normal) Comments: Reference Range HDL <40 mg/dL Low HDL Cholesterol HDL >or= 60 mg/dL High HDL Cholesterol LDL 69 mg/dL (Normal) Range: 0-130 TRIG 60 mg/dL (Normal) Comments: Serum Triglycerides Reference Interval Normal <150 mg/dL Borderline high 150 - 199 mg/dL High 200 - 499 mg/dL Very High > or = 500 mg/dL VLDL 12 mg/dL (Normal) Range: 5-40 18-Iui-404123:19 LIVER ALB 3.5 g/dL (Normal) Range: 3.4-5.0 ALK P 53 U/L (Normal) Range: 50-136 ALT 32 [iU]/L (Normal) Range: 30-65 AST 22 U/L (Normal) Range: 15-37 D BILI 0.16 mg/dL (Normal) Range: 0.00-0.30 T BILI 0.77 mg/dL (Normal) Range: 0.00-1.00 T PROT 7.1 g/dL (Normal) Range: 6.4-8.2 19-Uaz-967461:19 MICROALBUMIN,UR 16.6 mg/L (Normal) 03-Oux-882162:19 TSH 2.93 {uIU/mL} (Normal) Range: 0.34-4.82 53-Iqw-329163:47 BILAT SCRN DIGITAL & CAD Radiology Report See Note (Normal) Comments: Exam Number: [id number] MAMMOGRAM, BILATERAL SCREENING DIGITAL AND CAD HISTORYRoutine screening. TECHNIQUEFull field digital images were obtained in mediolateral oblique andcraniocaudal proje ctions. CAD images were reviewed. COMPARISONThe current study is compared to the examinations of June of 2005and June of 2006. FINDINGSThere is moderately dense fibroglandular parenchyma present. There is no skin thickening or retraction, architectural distortion, or clusterof suspicious microcalcifications. There are numerous scatteredcalcifications present bilaterally more numerous on the left than th eright. There is no suspicious cluster of microcalcifications seen.There is a metal marker in place on the left at the location of amole. If there is no suspicious palpable abnormality, followupmammog catie in 1 year is recommended. IMPRESSIONThere is no radiographic evidence of malignancy identified. FINAL ASSESSMENTBIRADS Category 2 - Benign. A letter regarding these results has been sent to the [facility]. This interpretation was rendered by a radiologist certified under theMammography Quality Standards Act of 1992 (MQSA). The mammograms werealso examined with computer-aided detection software (Mary chandra, [employer] Reported By: GABRIEL REYES M.D. 41-Tln-512408:07 HgA1C , Office (08450) HgA1C , Office 5.9 % (Normal) Range: 4.6 - 7.1 95-Ync-999807:07 Blood Glucose , Office (27693) Blood Glucose , Office 123 (Normal) 35-Bgm-35342:55 COMP METABOLIC A/G 0.9 {RATIO} (Normal) Range: 0.9-2.4 ALB 3.4 g/dL (Normal) Range: 3.4-5.0 ALK P 55 U/L (Normal) Range: 50-136 ALT 33 [iU]/L (Normal) Range: 30-65 AST 22 U/L (Normal) Range: 15-37 BUN 22 mg/dL (Abnormal) Range: 7-18 BUN/CRE 31.4 {RATIO} (Abnormal) Range: 10-20 CA 9.0 mg/dL (Normal) Range: 8.5-10.1 CL 104 mmol/L (Normal) Range: 98-107 CO2 30.4 mmol/L (Normal) Range: 21.0-32.0 Comments: Please Note Reference Interval Change CREAT,SERUM 0.7 mg/dL (Normal) Range: 0.6-1.0 GAP 7 (Normal) Range: 5-15 GLOB 3.6 g/dL (Normal) Range: 2.7-4.2 Comments: Please Note Reference Interval Change GLU 97 mg/dL (Normal) Range: 70-110 K 4.3 mmol/L (Normal) Range: 3.5-5.1 NA 141 mmol/L (Normal) Range: 136-145 T BILI 0.83 mg/dL (Normal) Range: 0.00-1.00 T PROT 7.0 g/dL (Normal) Range: 6.4-8.2 :55 LIPID CHOL 132 mg/dL (Normal) Comments: <200 mg/dL Desirable 200-240 mg/dL Borderline >240 mg/dL High Risk HDL 47 mg/dL (Normal) Comments: Reference Range HDL <40 mg/dL Low HDL Cholesterol HDL >or= 60 mg/dL High HDL Cholesterol LDL 70 mg/dL (Normal) Range: 0-130 TRIG 73 mg/dL (Normal) Comments: Serum Triglycerides Reference Interval Normal <150 mg/dL Borderline high 150 - 199 mg/dL High 200 - 499 mg/dL Very High > or = 500 mg/dL VLDL 15 mg/dL (Normal) Range: 5-40 :33 HgA1C , Office (25011) Comments: ABn signed HgA1C , Office 5.9 % (Normal) Range: 4.6 - 7.1 :33 Blood Glucose , Office (14776) Blood Glucose , Office 91 (Normal) Comments: 3 HPPBS :45 LIPID CHOL 138 mg/dL (Normal) Comments: <200 mg/dL Desirable 200-240 mg/dL Borderline >240 mg/dL High Risk HDL 44 mg/dL (Normal) Comments: Reference Range HDL <40 mg/dL Low HDL Cholesterol HDL >or= 60 mg/dL High HDL Cholesterol LDL 76 mg/dL (Normal) Range: 0-130 TRIG 91 mg/dL (Normal) Comments: Serum Triglycerides Reference Interval Normal <150 mg/dL Borderline high 150 - 199 mg/dL High 200 - 499 mg/dL Very High > or = 500 mg/dL VLDL 18 mg/dL (Normal) Range: 5-40 :45 LIVER ALB 3.3 g/dL (Abnormal) Range: 3.4-5.0 ALK P 53 U/L (Normal) Range: 50-136 ALT 33 [iU]/L (Normal) Range: 30-65 AST 24 U/L (Normal) Range: 15-37 D BILI 0.14 mg/dL (Normal) Range: 0.00-0.30 T BILI 0.80 mg/dL (Normal) Range: 0.00-1.00 T PROT 6.8 g/dL (Normal) Range: 6.4-8.2 :34 DEXA BONE DENSITY STUDY () Radiology Report See Note (Normal) Comments: Exam Number: [id number] BONE DENSITOMETRY HISTORYPostmenopausal. Bone densitometry of the lumbar spine and left hip was performed. Thebest criteria for evaluation of osteoporosis is the T-value whichrep resents the comparison of the patient's bone mass to an expectedpeak bone mass. For most patients, the mean T-value of L1 through L4and the T-value of the total left hip are most useful. In this ralf ent, the mean T-value of L1 through L4 is 0.1. Digital lateral view for evaluation of vertebral deformity only demonstrates no obvious compression fractures. Bone mineral densityis measured at 3.8% le ss than in 2001. T-value of the left femoral neck is -1.1 which is in the range of osteopenia. The T-value of thetotal left hip is 0.4 which is normal. Bone mineral density ismeasured at 8.6% less th an in 2001. IMPRESSION1. Bone densitometry of the lumbar spine and total left hip arewithin the normal range. Reported By: GABRIEL REYES M.D. :14 Blood Glucose , Office (84705) Blood Glucose , Office 137 (Normal) 66-Unu-498516:00 HgA1C , Office (05777) HgA1C , Office 5.8 % (Normal) Range: 4.6 - 7.1 39-Fmk-128251:00 Blood Glucose , Office (35897) Blood Glucose , Office 98 (Normal) :28 CBCD,SMEAR DIFF CELLS COUNTED 100 (Normal) HCT 36.3 % (Abnormal) Range: 37-47 HGB 12.5 g/dL (Normal) Range: 12.0-16.0 LYMPH 41 % (Normal) Range: 19-41 MCH 31.0 pg (Normal) Range: 27.0-32.0 MCHC 34.5 g/dL (Normal) Range: 32-36 MCV 89.8 fL (Normal) Range: 81-99 PLT 238 K/mm3 (Normal) Range: 150-450 PLT EST SeeNote (Normal) Comments: Result: ADEQUATE RBC 4.04 {M/mm3} (Abnormal) Range: 4.2-5.4 RDW 13.6 % (Normal) Range: 11.6-14.6 REACTIVE LYMPH 2+ (Normal) RED CELL MORPH SeeNote {NORMAL} (Normal) Comments: Result: NORM C&C SEGS 59 % (Normal) Range: 47-70 WBC 6.7 K/mm3 (Normal) Range: 4.4-11.0 :28 COMP METABOLIC A/G 0.9 {RATIO} (Normal) Range: 0.9-2.4 ALB 3.4 g/dL (Normal) Range: 3.4-5.0 ALK P 55 U/L (Normal) Range: 50-136 ALT 37 [iU]/L (Normal) Range: 30-65 AST 19 U/L (Normal) Range: 15-37 BUN 18 mg/dL (Normal) Range: 7-18 BUN/CRE 22.5 {RATIO} (Abnormal) Range: 10-20 CA 8.8 mg/dL (Normal) Range: 8.5-10.1 CL 107 mmol/L (Normal) Range: 98-107 CO2 32.8 mmol/L (Abnormal) Range: 22.0-29.0 CREAT,SERUM 0.8 mg/dL (Normal) Range: 0.6-1.0 GAP 2 (Abnormal) Range: 5-15 GLOB 3.7 g/dL (Abnormal) Range: 2.3-3.5 GLU 104 mg/dL (Normal) Range: 70-110 K 4.3 mmol/L (Normal) Range: 3.5-5.1 NA 142 mmol/L (Normal) Range: 136-145 T BILI 0.89 mg/dL (Normal) Range: 0.00-1.00 T PROT 7.1 g/dL (Normal) Range: 6.4-8.2 :28 MICROALBUMIN,UR 9.1 mg/L (Normal) :28 PFLIP CHOL 118 mg/dL (Normal) Comments: <200 mg/dL Desirable 200-240 mg/dL Borderline >240 mg/dL High Risk HDL 45 mg/dL (Normal) Comments: Reference Range HDL <40 mg/dL Low HDL Cholesterol HDL >or= 60 mg/dL High HDL Cholesterol LDL 57 mg/dL (Normal) Range: 0-130 TRIG 78 mg/dL (Normal) Comments: Serum Triglycerides Reference Interval Normal <150 mg/dL Borderline high 150 - 199 mg/dL High 200 - 499 mg/dL Very High > or = 500 mg/dL VLDL 16 mg/dL (Normal) Range: 5-40 :28 TSH 2.08 {uIU/mL} (Normal) Range: 0.34-4.82 :14 HgA1C , Office (99413) HgA1C , Office 5.7 % (Normal) Range: 4.6 - 7.1 :14 Blood Glucose , Office (81977) Blood Glucose , Office 132 (Normal) Plan of Care Name Dates Details Instructions Hypertensive kidney disease with chronic kidney disease, stage 1 through stage 4 or unspecified chronic kidney disease : Eprescribed prescriptions (G8553) Indication: Hypertensive kidney disease with chronic kidney disease, stage 1 through stage 4 or unspecified chronic kidney disease Diabetes mellitus type 2, controlled : Eprescribed prescriptions (G8553) Indication: Diabetes mellitus type 2, controlled BMI 34.0-34.9,adult : Eprescribed prescriptions (G8553) Indication: BMI 34.0-34.9,adult Current nonsmoker (Renamed from Current non-smoker) : Eprescribed prescriptions (G8553) Indication: Current nonsmoker (Renamed from Current non-smoker) Current nonsmoker (Renamed from Current non-smoker) : Eprescribed prescriptions (G8553) Indication: Current nonsmoker (Renamed from Current non-smoker) Hematuria : Follow up in 1 week by DB and or KR Indication: Hematuria Hematuria : Eprescribed prescriptions (G8553) Indication: Hematuria Diabetes mellitus type 2, controlled : Eprescribed prescriptions (G8553) Indication: Diabetes mellitus type 2, controlled [facility] : Eprescribed prescriptions (G8553) Indication: [facility] Diabetes mellitus type 2, controlled : Eprescribed prescriptions (G8553) Indication: Diabetes mellitus type 2, controlled Benign essential HTN : Diabetes and Exercise: Preventing Low Blood Sugar: blood sugar Indication: Benign essential HTN Diabetes mellitus type 2, controlled : Eprescribed prescriptions (G8553) Indication: Diabetes mellitus type 2, controlled Hypertensive kidney disease with chronic kidney disease, stage 1 through stage 4 or unspecified chronic kidney disease : Eprescribed prescriptions (G8553) Indication: Hypertensive kidney disease with chronic kidney disease, stage 1 through stage 4 or unspecified chronic kidney disease Wheeze : Follow up if no improvement or if symptoms worsen Indication: Wheeze Acute sinusitis, unspecified : *URI Treatment Indication: Acute sinusitis, unspecified Acute sinusitis, unspecified : *URI Symptoms Indication: Acute sinusitis, unspecified Acute sinusitis, unspecified : *Antibiotic Usage Education - Female Indication: Acute sinusitis, unspecified Diabetes mellitus type 2, controlled : Eprescribed prescriptions (G8553) Indication: Diabetes mellitus type 2, controlled Diabetes mellitus type 2, controlled : Eprescribed prescriptions (G8553) Indication: Diabetes mellitus type 2, controlled Anticoagulant long-term use : Follow up iFriday Indication: Anticoagulant long-term use Dysuria : follow up for recheck urine 1 week after complete antibiotic Indication: Dysuria Dysuria : *UTI treatment Indication: Dysuria Dysuria : Water in diet, brief version Indication: Dysuria Diabetes mellitus type 2, controlled : Diabetes and Midlife Sexuality: type 2 diabetes Indication: Diabetes mellitus type 2, controlled Rash : Follow up in 6 weeks Indication: Rash Osteopenia : Follow up in 4 months Indication: Osteopenia Diabetes mellitus type 2, controlled : Diet, Exercise, and Wt loss Indication: Diabetes mellitus type 2, controlled Unspecified bacterial pneumonia : *Antibiotic Usage Education - Female Indication: Unspecified bacterial pneumonia Cough : Follow up in 1 week Indication: Cough Bronchitis : *URI Treatment Indication: Bronchitis Bronchitis : *URI Symptoms Indication: Bronchitis Bronchitis : *Antibiotic Usage Education - Female Indication: Bronchitis Hematuria, unspecified : Follow up in 2 weeks with [facility] for repeat UA Indication: Hematuria, unspecified Other hyperlipidemia : Diet, Exercise, and Wt loss Indication: Other hyperlipidemia Uncontrolled type II diabetes mellitus : Diet, Exercise, and Wt loss Indication: Uncontrolled type II diabetes mellitus Other and unspecified hyperlipidemia : Diet and Exercise Indication: Other and unspecified hyperlipidemia Cough : Antibiotic Usage Education - Female Indication: Cough Well woman exam with routine gynecological exam : Pap/Pelvic/Bimanual/Rectal/Breast Exam was done. Indication: Well woman exam with routine gynecological exam Well woman exam with routine gynecological exam : Well Female Maintenance (KF) Indication: Well woman exam with routine gynecological exam Other and unspecified hyperlipidemia : Cholesterol - Medication Side Effects Indication: Other and unspecified hyperlipidemia partial achilles tendon tear- send to pt- she is getting better but still pretty tender - will send to pt : FOLLOW UP IN 3 MONTHS Indication: partial achilles tendon tear- send to pt- she is getting better but still pretty tender - will send to pt Well woman exam with routine gynecological exam : Pap/Pelvic/Bimanual/Rectal/Breast Exam was done. Indication: Well woman exam with routine gynecological exam Well woman exam with routine gynecological exam : Well Female Maintenance (KF) Indication: Well woman exam with routine gynecological exam Acquired hypothyroidism : FOLLOW UP IN 4 MONTHS Indication: Acquired hypothyroidism Planned Observations CBC W/AUTO DIFF WBC (16016)Indication: Hypertensive kidney disease with chronic kidney disease, stage 1 through stage 4 or unspecified chronic kidney disease On: :29 Request METABOLIC PANEL, COMPREHENSIVE (26417)Indication: Hypertensive kidney disease with chronic kidney disease, stage 1 through stage 4 or unspecified chronic kidney disease On: :29 Request CBC W/AUTO DIFF WBC (19009)Indication: Hypertensive kidney disease with chronic kidney disease, stage 1 through stage 4 or unspecified chronic kidney disease On: 8-Ffz-207778:03 Request URINE KRISTINA CULTURE-IDENTIFICATN (71562)Indication: UTI (urinary tract infection), uncomplicated On: 09-Sep-20169:07 Request Comments: recheck after antibiotic URINALYSIS (43560)Indication: UTI (urinary tract infection), uncomplicated On: 09-Sep-20169:07 Request Comments: recheck after antibiotic HgA1C , Office (16700)Indication: Diabetes mellitus type 2, controlled On: 03-Mdh-951283:23 Request MICROALBUMIN: CREATININE RATIO (26581) AND (51625)Indication: Diabetes mellitus type 2, controlled On: :30 Request METABOLIC PANEL, COMPREHENSIVE (00070)Indication: Diabetes mellitus type 2, controlled On: :30 Request LIPID PANEL (14563)Indication: Other hyperlipidemia On: :29 Request TSH (50776)Indication: Acquired hypothyroidism On: :29 Request Urinalysis, Office (17539)Indication: UTI (urinary tract infection), uncomplicated On: 99-Xtr-972983:04 Request Comments: post-atb UPEP (97421)Indication: Osteopenia On: 37-Qqs-456161:41 Request SPEP (71584)Indication: Osteopenia On: 98-Lco-806613:41 Request LIPID PANEL (68081)Indication: Other hyperlipidemia On: 02-Phq-578161:53 Request HgA1C , Office (06058)Indication: Diabetes mellitus type 2, controlled On: 30-Xgu-468288:23 Request CULTURE, SPUTUM (19333)Indication: Cough On: 60-Mfy-537125:46 Request HEPATIC FUNCTION PANEL (57889)Indication: Other and unspecified hyperlipidemia On: 88-Smy-189955:20 Request LIPID PANEL (45812)Indication: Other and unspecified hyperlipidemia On: 65-Tvf-553498:20 Request FECAL OCCULT HGB ASSAY- tubes sent home (24285)Indication: Well woman exam with routine gynecological exam On: 08-Vux-09351:46 Request MICROALBUMIN URINE QUANT (30438)Indication: Diabetes mellitus type 2, controlled On: 78-Xgl-698872:34 Request TSH (95739)Indication: Acquired hypothyroidism On: 68-Xfh-521909:34 Request HEPATIC FUNCTION PANEL (95406)Indication: Other hyperlipidemia On: 36-Twx-710106:34 Request LIPID PANEL (66632)Indication: Other hyperlipidemia On: :34 Request METABOLIC PANEL, COMPREHENSIVE (75889)Indication: Other and unspecified hyperlipidemia On: :24 Request LIPID PANEL (95601)Indication: Other and unspecified hyperlipidemia On: :23 Request HEPATIC FUNCTION PANEL (91904)Indication: Other and unspecified hyperlipidemia On: :29 Request LIPID PANEL (75069)Indication: Other and unspecified hyperlipidemia On: :29 Request HgA1C , Office (09608)Indication: Diabetes mellitus type 2, controlled On: :14 Request Thin prep Pap (97598)Indication: Well woman exam with routine gynecological exam On: 37-Ltk-147833:36 Request TSH (89567)Indication: Acquired hypothyroidism On: :33 Request MICROALBUMIN URINE QUANT (57964)Indication: Diabetes mellitus type 2, controlled On: :32 Request LIPID PANEL (76295)Indication: Other and unspecified hyperlipidemia On: :32 Request METABOLIC PANEL, COMPREHENSIVE (00583)Indication: Hypertension On: :32 Request CBC WITH MANUAL DIFF (16281)Indication: Hypertension On: :31 Request Planned Encounters Medical; [facility] Exam (Doctor) - On: 19-Jul-2018 13:30 [facility] Fast DO, Etta A Fast DO, Etta A Planned Procedures Flu Vaccine (Quadrivalent) On: 05-Apr-2018 Intent 73143Eq: Fast DO, Etta A Fast Comments: Lot #[id number]-L dltd, IMDose prefilled syringegiven by: CHRIS Moody reviewed and ABN signed DO, Etta A Cartoid DopplerBy: Fast DO, On: 21-Nov-2017 Intent Etta A Fast DO, Etta A Comments: 02/18 Radiology - Knee - Right - On: 13-Jul-2017 Intent Weight BearingBy: Fast DO, Etta A Fast DO, Etta A SCREENING DIGITAL TOMOSYNTHESIS On: 13-Jul-2017 Intent OF BREAST (91759)By: Fast DO, Comments: END September Etta A Fast DO, Etta A ELECTROCARDIOGRAM, COMPLETE On: 13-Jul-2017 Intent (ECG) (62426)By: Fast DO, Etta A Fast DO, Etta A Flu Vaccine (Quadrivalent) On: 13-Apr-2017 Intent 09367Lo: Fast DO, Etta A Fast Comments: Lot:[id number]:0.5mLRoute:IMSite:L DltdGiven By:MADELYN signed DO, Etta A Cartoid DopplerBy: Fast DO, On: 08-Nov-2016 Intent Etta A Fast DO, Etta A Comments: january DEXA SCAN AXIAL SKELETON On: 28-Jul-2016 Intent (42483)By: Fast DO, Etta A Comments: end september Fast DO, Etta A SCREENING DIGITAL TOMOSYNTHESIS On: 28-Jul-2016 Intent OF BREAST (69020)By: Fast DO, Etta A Fast DO, Etta A ELECTROCARDIOGRAM, COMPLETE On: 19-Apr-2016 Intent (ECG) (35653)By: Fast DO, Etta A Fast DO, Etta A Flu Vaccine (Quadrivalent) On: 12-Mar-2016 Intent 52032Uf: Levy Busby Comments: FLUlot: [id number]:12/31/16site:Lt deltoidroute:IMdose:.5mlDEMICK, MA US DOPPLER CAROTID BILATERAL On: 06-Nov-2015 Intent (08084)By: Elena Henderson MD MAMMOGRAM, SCREENING, BOTH On: 25-Aug-2015 Intent BREAST (55985)By: Fast DO, Etta A Fast DO, Etta A Aerosol Treatment (51050)By: On: 15-Nov-2014 Intent Fátima Peoples LPN MAMMOGRAM, SCREENING, BOTH On: 20-Aug-2014 Intent BREAST (55011)By: Fast DO, Etta A Fast DO, Etta A Flu Vaccine (Quadrivalent) On: 05-Jun-2014 Intent 24931Au: Fast DO, Etta A Fast Comments: lot:[id number]:dose:0.5mLRoute: IMlocation: L armgiven by: Etta hale DO ADMINISTRATION OF INFLUENZA On: 05-Jun-2014 Intent VIRUS VACCINE (G0008)By: Yoel Enciso 13 (78322)By: Dequan ANG, On: 16-Apr-2014 Intent Etta A Dequan DO, Etta A Comments: Lot:[id number]:07/19Dose:prefilled Route:imSite:la rmGiven By:MADELYN signed DEXA SCAN AXIAL SKELETON On: 16-Apr-2014 Intent (68542)By: Etta Lopez DO A Comments: you Etta Lopez DO A Radiology - Ankle - RightBy: On: 20-Aug-2013 Intent Dequan ANG, Etta A Dequan DO, Etta A Eprescribed prescriptions On: 20-Aug-2013 Intent (G8553)By: Etta Lopez DO DO, Etta A MAMMOGRAM, SCREENING, BOTH On: 04-Apr-2013 Intent BREASTS (02129)By: Dequan ANG, Comments: jul Etta Leavitt DO A FLU VAC, SPLIT, >3 YEARS, On: 04-Apr-2013 Intent INTRAMUSC (58696)By: José Miguel, Comments: Lot #:[id number] date:mount given:0.5mlRoute: IMSite given: L dltdVIS and ABN signedGiven by: BEAR Edmond IMMUNIZ ADMNIN, 1 VAC, On: 04-Apr-2013 Intent SNGL/COMBO (57451)By: Manda Valdez Toradol Injection, 30 mg On: 07-Aug-2012 Intent (J1885)By: Alyson Capps CNP Comments: Lot: [id number]: 9.14Amt: 1mlRoute: IMSite: R GlutealGiven by: SHANTE Merritt CT - Abdomen & Pelvis Stone On: 07-Aug-2012 Intent ProtocolBy: Alyson Capps CNP Comments: today SPECIMEN HANDLING/TRANSPORT On: 07-Aug-2012 Intent ([id number])By: Kary Werner LPN Eprescribed prescriptions On: 21-Jul-2012 Intent ([id number])By: Manda Valdez MAMMOGRAM, SCREENING, BOTH On: 29-Feb-2012 Intent BREASTS ([id number])By: Dequan ANG, Comments: screening-dec Etta A Dequan DO, Etta A DXA, BONE DENSITY, AXIAL On: 29-Feb-2012 Intent SKELETON ([id number])By: Dequan ANG, Comments: dec Etta A Fast DO, Etta A EKG ([id number])By: Crow Lopez DOa On: 29-Feb-2012 Intent A Dequan DO, Etta A Comments: ekg showed normal sinus rhythym, normal axis, no acute st/t wave changes Eprescribed prescriptions On: 12-Nov-2011 Intent ([id number])By: Etta Lopez DO, DO, Etta A Radiology - ChestBy: Bonezzi On: 05-Nov-2011 Intent Elena BARRIGA Comments: call wet read. Inhaler Demonstration On: 29-Oct-2011 Intent ([id number])By: Alyson Capps CNP Aerosol Treatment ([id number])By: On: 29-Oct-2011 Intent Alyson Capps CNP PNEUM VAC ADLT/IMUMNOSPR, On: 28-Sep-2011 Intent SBC/INTRM ([id number])By: Dequan ANG, Comments: Lot #: [id number] date: 03/16Amount given: 0.5 mlRoute: IMSite given: left deltoidGiven by: DAVIE Swartz DO Etta A ADMINISTRATION OF PNEUMOCOCCAL On: 28-Sep-2011 Intent VACCINE ([id number])By: Dequan ANG, Etta Lopez DO, Etta A MAMMOGRAM, SCREENING, BOTH On: 01-Jun-2011 Intent BREASTS ([id number])By: Etta Lopez DO, DO, Etat A TDAP VACCINE >7 IM ([id number])By: On: 01-Jun-2011 Intent Manda Valdez Comments: refuses- allergic FLU VAC, SPLIT, >3 YEARS, On: 01-Jun-2011 Intent INTRAMUSC ([id number])By: José Miguel, Comments: work Manda FLU VAC, SPLIT, >3 YEARS, On: 27-Apr-2010 Intent INTRAMUSC ([id number])By: Rosi, Comments: Lot:[id number] 4pExp:10/2010Dose:0.5mlRoute:IMSite:Left Deltoid Given by: BEAR Fritz IMMUNIZ ADMNIN, 1 VAC, On: 27-Apr-2010 Intent SNGL/COMBO ([id number])By: Phyllis Aranda DXA, BONE DENSITY, AXIAL On: 02-Mar-2010 Intent SKELETON ([id number])By: Fast DO, Etta A Fast DO, Etta A MAMMOGRAM, SCREENING, BOTH On: 02-Mar-2010 Intent BREASTS ([id number])By: Fast DO, Etta A Fast DO, Etta A Radiology - Hand - RightBy: On: 15-Dec-2009 Intent Alyson Capps CNP Comments: call wet read to [facility] Radiology - Finger(s) - On: 15-Dec-2009 Intent RightBy: Alyson Capps CNP Comments: call wet read Holter Monitor 24 hrsBy: Fast On: 29-Oct-2009 Intent DO, Etta A Fast DO, Etta A EKG ([id number])By: José Miguel, On: 29-Oct-2009 Intent Manda Comments: ekg showed normal sinus rhythym, normal axis, no acute st/t wave changes Radiology - Chest- PA and On: 30-Apr-2009 Intent LatBy: Fast DO, Etta A Fast DO, Etta A FLU VAC, SPLIT, >3 YEARS, On: 21-Apr-2009 Intent INTRAMUSC ([id number])By: José Miguel, Comments: Lot #:[id number] date:mount given:0.5mlRoute: IMSite given:left deltGiven by: BEAR Edmond IMMUNIZ ADMNIN, 1 VAC, On: 21-Apr-2009 Intent SNGL/COMBO ([id number])By: Manda Valdez Radiology - Chest- PA and On: 24-Sep-2008 Intent LatBy: Fast DO, Etta A Fast DO, Etta A Echo CompleteBy: Fast DO, Etta On: 24-Sep-2008 Intent A Fast DO, Etta A Bio Z ([id number])By: Fast DO, Etta On: 24-Sep-2008 Intent A Fast DO, Etta A Comments: done-awnormal paremteres EKG ([id number])By: Fast DO, Etta On: 24-Sep-2008 Intent A Fast DO, Etta A Comments: done-awekg showed normal sinus rhythym, normal axis, no acute st/t wave changes Spirometry ([id number])By: Dequan DO, On: 24-Sep-2008 Intent Etta A Fast DO, Etta A Comments: done-awgood effort and curve normal Pulse Oximetry ([id number])By: Fast On: 24-Sep-2008 Intent DO, Etta A Fast DO, Etta A Comments: 97% MAMMOGRAM, SCREENING, BOTH On: 25-Jun-2008 Intent BREASTS ([id number])By: Fast DO, Etta A Fast DO, Etta A Spirometry ([id number])By: Dequan ANG, On: 26-Mar-2008 Intent Etta A Fast DO, Etta A Comments: good effort and curve normal EKG ([id number])By: José Miguel, On: 29-Dec-2007 Intent Manda Comments: ekg showed normal sinus rhythym, normal axis, no acute st/t wave changes DXA, BONE DENSITY, AXIAL On: 26-Sep-2007 Intent SKELETON ([id number])By: Dequan DO, Comments: postmenopausal without estrogen Etta A Fast DO, Etta A EKG ([id number])By: Fast DO Etta On: 27-Oct-2006 Intent A Fast DO, Etta A Comments: ekg showed normal sinus rhythym, normal axis, no acute st/t wave changes Bone Density StudyBy: Dequan DO, On: 13-Sep-2006 Intent Etta A Fast DO, Etta A Comments: post menopausal without estrogen MAMMOGRAM, SCREENING, BOTH On: 13-Sep-2006 Intent BREASTS ([id number])By: Fast DO Etta A Fast DO, Etta A Planned Medications INJECTION, KETOROLAC TROMETHAMINE, PER 15 MG Ordered: 07-Aug-2012 Pending Alyson Capps CNP Instructions Name Dates Details Hypertensive kidney disease with chronic kidney disease, stage 1 through stage 4 or unspecified chronic kidney disease : How to access health information online Indication: Hypertensive kidney disease with chronic kidney disease, stage 1 through stage 4 or unspecified chronic kidney disease Hypertensive kidney disease with chronic kidney disease, stage 1 through stage 4 or unspecified chronic kidney disease : How to access health information online - Detail Indication: Hypertensive kidney disease with chronic kidney disease, stage 1 through stage 4 or unspecified chronic kidney disease Hypertensive kidney disease with chronic kidney disease, stage 1 through stage 4 or unspecified chronic kidney disease : Patient Instructions Indication: Hypertensive kidney disease with chronic kidney disease, stage 1 through stage 4 or unspecified chronic kidney disease Diabetes mellitus type 2, controlled : How to access health information online Indication: Diabetes mellitus type 2, controlled Diabetes mellitus type 2, controlled : How to access health information online - Detail Indication: Diabetes mellitus type 2, controlled Diabetes mellitus type 2, controlled : Patient Instructions Indication: Diabetes mellitus type 2, controlled BMI 34.0-34.9,adult : How to access health information online Indication: BMI 34.0-34.9,adult BMI 34.0-34.9,adult : How to access health information online - Detail Indication: BMI 34.0-34.9,adult BMI 34.0-34.9,adult : Patient Instructions Indication: BMI 34.0-34.9,adult Current nonsmoker (Renamed from Current non-smoker) : How to access health information online Indication: Current nonsmoker (Renamed from Current non-smoker) Current nonsmoker (Renamed from Current non-smoker) : How to access health information online - Detail Indication: Current nonsmoker (Renamed from Current non-smoker) Current nonsmoker (Renamed from Current non-smoker) : Patient Instructions Indication: Current nonsmoker (Renamed from Current non-smoker) Current nonsmoker (Renamed from Current non-smoker) : How to access health information online Indication: Current nonsmoker (Renamed from Current non-smoker) Current nonsmoker (Renamed from Current non-smoker) : How to access health information online - Detail Indication: Current nonsmoker (Renamed from Current non-smoker) Current nonsmoker (Renamed from Current non-smoker) : Patient Instructions Indication: Current nonsmoker (Renamed from Current non-smoker) BMI 35.0-35.9,adult : How to access health information online Indication: BMI 35.0-35.9,adult BMI 35.0-35.9,adult : How to access health information online - Detail Indication: BMI 35.0-35.9,adult BMI 35.0-35.9,adult : Patient Instructions Indication: BMI 35.0-35.9,adult Hematuria : How to access health information online Indication: Hematuria Hematuria : How to access health information online - Detail Indication: Hematuria Hematuria : Patient Instructions Indication: Hematuria Diabetes mellitus type 2, controlled : How to access health information online Indication: Diabetes mellitus type 2, controlled Diabetes mellitus type 2, controlled : How to access health information online - Detail Indication: Diabetes mellitus type 2, controlled Diabetes mellitus type 2, controlled : Patient Instructions Indication: Diabetes mellitus type 2, controlled [facility] : How to access health information online Indication: [facility] : How to access health information online - Detail Indication: [facility] : Patient Instructions Indication: [facility] Diabetes mellitus type 2, controlled : How to access health information online Indication: Diabetes mellitus type 2, controlled Diabetes mellitus type 2, controlled : How to access health information online - Detail Indication: Diabetes mellitus type 2, controlled Diabetes mellitus type 2, controlled : Patient Instructions Indication: Diabetes mellitus type 2, controlled Benign positional vertigo, bilateral : How to access health information online Indication: Benign positional vertigo, bilateral Benign positional vertigo, bilateral : How to access health information online - Detail Indication: Benign positional vertigo, bilateral Benign positional vertigo, bilateral : Patient Instructions Indication: Benign positional vertigo, bilateral Diabetes mellitus type 2, controlled : How to access health information online Indication: Diabetes mellitus type 2, controlled Diabetes mellitus type 2, controlled : How to access health information online - Detail Indication: Diabetes mellitus type 2, controlled Diabetes mellitus type 2, controlled : Patient Instructions Indication: Diabetes mellitus type 2, controlled Hypertensive kidney disease with chronic kidney disease, stage 1 through stage 4 or unspecified chronic kidney disease : Patient Instructions Indication: Hypertensive kidney disease with chronic kidney disease, stage 1 through stage 4 or unspecified chronic kidney disease Second degree fontaine : Patient Instructions Indication: Second degree fontaine Diabetes mellitus type 2, controlled : Patient Instructions Indication: Diabetes mellitus type 2, controlled Diabetes mellitus type 2, controlled : Patient Instructions Indication: Diabetes mellitus type 2, controlled Acquired hypothyroidism : How to access health information online Indication: Acquired hypothyroidism Acquired hypothyroidism : How to access health information online - Detail Indication: Acquired hypothyroidism Diabetes mellitus type 2, controlled : Patient Instructions Indication: Diabetes mellitus type 2, controlled Diabetes mellitus type 2, controlled : Patient Instructions Indication: Diabetes mellitus type 2, controlled Diabetes mellitus type 2, controlled : Patient Instructions Indication: Diabetes mellitus type 2, controlled Diabetes mellitus type 2, controlled : Patient Instructions Indication: Diabetes mellitus type 2, controlled Diabetes mellitus type 2, controlled : Patient Instructions Indication: Diabetes mellitus type 2, controlled Diabetes mellitus type 2, controlled : Patient Instructions Indication: Diabetes mellitus type 2, controlled Other hyperlipidemia : Patient Instructions Indication: Other hyperlipidemia Advance Directives Name Dates Details Living Will - Effective on 08/10/2017. Expiration date Effective: 10-Aug-2017 unspecified. Scanned Document is available upon request. Encounters Phone Encounter On: 03-Jul-2018 16:21 Encounter Diagnosis: Diabetes mellitus type 2, controlled End: 03-Jul-2018 16:44 [facility] Visit On: 05-Apr-2018 10:59 Encounter Diagnosis: Need for prophylactic vaccination and inoculation against influenza (Renamed from Need for immunization against influenza) End: 05-Apr-2018 11:05 [facility] Visit On: 29-Mar-2018 10:37 Encounter Reason: Follow up for chronic medical issues - The patient feels well with minor complaints (having issues with knee, having an MRI this Tuesday. Has been seeing Monica Baig.), has good energy level and is sle End: 30-Mar-2018 20:36 eping well (depends on the night). Patient has been compliant with instructions. Current medication use: no side effects and compliant with dosing regimen. Patient sleeps 7 (6-7 hrs) hours per night. Nu trition: balanced diet. The medical issues the patient is following up for include All identified problems below and blood sugar issues. blood pressure range : (has list) and fasting blood sugars : (has list). Note for Follow up for chronic medical issues: she havign knee issues - she saw Dr Ng and he gave her a kenalog shot - this likely why sugar is up - she then saw cyn velasco- and h e examined- he ordered mri- she not able to walk like she wants - her bp is good- saw cardio doing ok had carotids getting echo, [ADDITIONAL REASON] Follow up tests - Date: (03/22 blood work). Encounter Diagnosis: BMI 36.0-36.9,adult, Current nonsmoker (Renamed from Current non-smoker), Hypertensive kidney disease with chronic kidney disease, stage 1 through stage 4 or unspecified chronic kidney disease, Diabetes mellitus type 2, controlled, Other and unspecified hyperlipidemia (272.4), Acquired hypothyroidism, Asymptomatic bilateral carotid artery stenosis, Afib [facility] Phone Encounter On: 06-Feb-2018 11:11 Encounter Diagnosis: Hypertensive kidney disease with chronic kidney disease, stage 1 through stage 4 or unspecified chronic kidney disease End: 06-Feb-2018 11:15 [facility] Visit On: 21-Nov-2017 11:08 Encounter Reason: Follow up tests - Date: (11/16 blood work)., [ADDITIONAL REASON] Follow up for chronic medical issues - The patient feels well with no complaints End: 21-Nov-2017 12:16 , has good energy level and is sleeping well (depends). Patient has been compliant with instructions. Current medication use: no side effects and compliant with dosing regimen. Patient sleeps 7 (sometim es less depending on how stressed she is) hours per night. Nutrition: balanced diet. The medical issues the patient is following up for include All identified problems below and blood sugar issues. bloo d pressure range : (has list) and fasting blood sugars : (has list). Note for Follow up for chronic medical issues: bp is great and slept well last night- she is trying to drink her water and did get skin check and did have a basal cell removed on her nose Encounter Diagnosis: BMI 36.0-36.9,adult, Current nonsmoker (Renamed from Current non-smoker), Asymptomatic bilateral carotid artery stenosis, Diabetes mellitus type 2, controlled, Hypertensive kidney disease with chronic kidney disease, stage 1 through stage 4 or unspecified chronic kidney disease, Other and unspecified hyperlipidemia (272.4), Acquired hypothyroidism, Cardiac dysrhythmia [facility] Visit On: 13-Jul-2017 13:15 Encounter Reason: Physical female exam - Last seen between 3-6 months ago. General health: feels well with no complaints, has good energy level and is sleeping poorly (interuppted). The patient's appetite is normal. Nutr End: 28-Jul-2017 20:37 ition: normal/adequate. Exercises 0 (does when she can. Has back problems that prevents her sometimes. Goal is 4 x's) days per week. Sleeps on average 6 (6.5) hours per night. Elimination problems inclu de none (does have some urgency whenever she visually sees a toliet). There are no current emotional problems. screening, mammography. Note for Physical exam: JUST SAW CARDIO NOT TOO LONG ago and wei valladares well- not much issue with the vertigo and no nausea or diarrhea- taking probiotic and doing well bowel borjas- energy pretty good- bps great most all in 120/70-80-- blood sugars on average 110-126Encounter Diagnosis: Current nonsmoker (Renamed from Current non-smoker), BMI 34.0-34.9,adult, Diabetes mellitus type 2, controlled, Acquired hypothyroidism, [facility] EX[facility], Hypertensive kidney disease with chronic kidney disease, stage 1 through stage 4 or unspecified chronic kidney disease, Encounter for screening mammogram for breast cancer (Renamed from Encounter for screening mammogram f or malignant neoplasm of breast), Asymptomatic bilateral carotid artery stenosis, Right knee pain, Abnormal urine (Renamed from Abnormal finding in urine), Other and unspecified hyperlipidemia (272.4) [facility] Visit On: 13-Apr-2017 11:04 Encounter Reason: Injections - The medication the patient is here to receive is other (i am here for my flu shot).Encounter Diagnosis: Need for prophylactic vaccination and inoculation against influenza (V04.81) End: 13-Apr-2017 11:09 [facility] Visit On: 14-Mar-2017 9:26 Encounter Reason: Follow up for chronic medical issues - The patient feels well with no complaints, has good energy level and is sleeping well. Patient has been compliant with instructions. Current medication use: no jade End: 14-Mar-2017 10:20 e effects and compliant with dosing regimen. Patient sleeps 7 hours per night. Nutrition: balanced diet. The medical issues the patient is following up for include All identified problems below and bloo d sugar issues. blood pressure range : (has list) and fasting blood sugars : (has list). Note for Follow up for chronic medical issues: she still working on the weight and down verall 37 pounds over t he years - bpsx are great at home mostly in the 120s- she had back flareup this summer and so her activiity went down so sugar up bit and hdl down because, [ADDITIONAL REASON] Follow up tests - Date: (03/08/17 blood work). Encounter Diagnosis: BMI 35.0-35.9,adult, Current nonsmoker (Renamed from Current non-smoker), Asymptomatic bilateral carotid artery stenosis, Diabetes mellitus type 2, controlled, Acquired hypothyroidism, Osteopenia (733.90), Other and unspecified hyperlipidemia (272.4) , Hypertensive kidney disease with chronic kidney disease, stage 1 through stage 4 or unspecified chronic kidney disease [facility] Visit On: 08-Nov-2016 10:06 Encounter Reason: Follow up for chronic medical issues - The patient feels well with minor complaints (talk about nutrionist cause of her different diets- should she see Kristen for her kidney stone??), has good energy le End: 08-Nov-2016 13:36 kalli and is sleeping well. Patient has been compliant with instructions. Current medication use: no side effects and compliant with dosing regimen. Patient sleeps 6 hours per night. Nutrition: balanced d iet. The medical issues the patient is following up for include All identified problems below and blood sugar issues. blood pressure range : (has list) and fasting blood sugars : (has list). Note for Marianne hernandez up for chronic medical issues: her sugars climbing a bit averaging more 120s fasting - think becuase she not able to exercise like was because of her back- she was getting better then got worse a gain and now doing traction- her bps at home great all running 106-120/60-80- this is first week she able to walk 5 minute s at time- traction helping- her fatigue and nausea better- diarrhea gone and vertigo has been pretty good, [ADDITIONAL REASON] Follow up, Laboratory Test Results - Date: (11/01/16). Encounter Diagnosis: BMI 35.0-35.9,adult, Current nonsmoker (Renamed from Current non- smoker), Diabetes mellitus type 2, controlled, Hypertensive kidney disease with chronic kidney disease, stage 1 through stage 4 or unspecified chronic kidney disease, Recurrent nephrolithiasis, Asymptomatic bilateral carotid artery stenosis, Other and unspecified hyperlipidemia (272.4), Acquired hypothyroidism, Osteopenia (733.90), Abnormal serum lipase level [facility] Office Visit On: 29-Sep-2016 11:13 Encounter Reason: Nausea - Note for Nausea: been coming and going since had stone and still just not feeling great- fatigue lack of appeittie- urine cx neg no urinary sx no fever no abd pain no vomit- intermittent diarrhea no blood- no chest sx End: 30-Sep-2016 18:18 Encounter Diagnosis: Nausea, Other fatigue, Diarrhea, unspecified type [facility] Visit On: 23-Sep-2016 11:09 Encounter Reason: Nurse procedure visit - Reason for visit: other (recheck urine).Encounter Diagnosis: UTI (urinary tract infection), uncomplicated (599.0) End: 24-Sep-2016 16:05 [facility] Lab Order On: 09-Sep-2016 9:06 Encounter Diagnosis: UTI (urinary tract infection), uncomplicated (599.0) End: 09-Sep-2016 9:07 [facility] Office Visit On: 06-Sep-2016 9:46 Encounter Reason: Follow up acute care visit - The patient feeling better since last seen and improving. Patient has been compliant with instructions. Current medication use: no side effects and compliant with dosing reg End: 06-Sep-2016 10:36 imen. Patient sleeps 7 hours per night. Nutrition: balanced diet. Note for Follow up acute care visit: no pain no fever now= was on flomax and had vertigobut happened after off flomax - was positional vertigo= this am only when turned over in bed- - no double vision no weak or numb in arms or legs Encounter Diagnosis: Current nonsmoker (Renamed from Current non-smoker), BMI 35.0-35.9,adult, Recurrent nephrolithiasis, Obstructive uropathy, Benign paroxysmal positional vertigo, unspecified laterality [facility] Office Visit On: 25-Aug-2016 14:38 Encounter Reason: Hematuria - Symptoms include bright red urine and evangelina colored urine. Onset was 7 hour(s) ago. The symptoms occur constantly. The patient describes this as unchanged. Symptoms are not exacerbated by act End: 25-Aug-2016 15:12 ivity, sports, prolonged sitting or prolonged standing. Associated symptoms do not include pelvic pain, back pain, bladder spasm, incontinence, vaginal discharge, vaginal itching, fatigue, fever, chills , nausea, vomiting, edema, sore throat or rash. The patient is not currently being treated for this problem. Previous presentation included hematuria.Encounter Diagnosis: Current nonsmoker (Renamed from Current non-smoker), BMI 36.0-36.9,adult, Hematuria, Urgency of micturition [facility] Office Visit On: 28-Jul-2016 10:49 Encounter Reason: Follow up for chronic medical issues - The patient feels well with no complaints, has good energy level and is sleeping well. Patient has been compliant with instructions. Current medication use: no jade End: 28-Jul-2016 11:57 e effects and compliant with dosing regimen. Patient sleeps 6 hours per night. Nutrition: balanced diet. The medical issues the patient is following up for include All identified problems below and bloo d sugar issues. blood pressure range : (has list) and fasting blood sugars : (has list). Note for Follow up for chronic medical issues: melisa carter has been amazing- 120/70-s on average- - blood suga rs more low 90 and 100s than usual- she getting more walking in not quite got all the water in yet- feeling good in general- she has ddd of back and seeing chiropractor and keeping her in line- did get copper gloves- if sleeps feels energy the next day, [ADDITIONAL REASON] Follow up, Laboratory Test Results - Date: (07/22/16). Encounter Diagnosis: Diabetes mellitus type 2, controlled, BMI 35.0-35.9,adult, Current nonsmoker (Renamed from Current non-smoker), Benign essential HTN, Osteopenia (733.90), Encounter for screening mammogram for breast cancer (Renamed from Encounter for screening mammogram for malignant neoplasm of breast), Postmenopausal (Renamed from Postmenopausal status), Other and unspecified hyperlipidemia (272.4), Acquired hypothyroidism, Arthralgia of both hands, Asymptomatic bilateral carotid artery stenosis [facility] Office Visit On: 19-Apr-2016 8:34 Encounter Reason: Physical female exam - General health: feels well with minor complaints (joint pains in hands- pt has hx of Osteoarthrosis.), has good energy level and is sleeping well. The patient's appetite is normal End: 19-Apr-2016 12:26 . Nutrition: appropriate balanced diet. Exercises 2 (walks on tread mill when her back allows it) days per week. Sleeps on average 6 hours per night. Elimination problems include urinary incontinence (c ant hold when right at toilet and trying to get her pants down and then dribbles.). Safety measures include appropriate use of safety belts and home smoke detectors. There are no current emotional probl ems. Note for Physical exam: [facility]- her bps great at home running 118-120s /60-70s- , [ADDITIONAL REASON] Follow up, Laboratory Test Results - Date: (03/2016). Encounter Diagnosis: [facility], Current nonsmoker (Renamed from Current non-smoker), BMI 35.0-35.9,adult, Allergic rhinitis, unspecified allergic rhinitis type, Arthralgia of both hands, Diabetes mellitus type 2, controlled, Benign essential HTN, Other and unspecified hyperlipidemia (272.4), Acquired hypothyroidism, Osteopenia (733.90) [facility] Office Visit On: 12-Mar-2016 12:04 Encounter Reason: Nurse procedure visit - The symptoms have been associated with other (flu).Encounter Diagnosis: Need for prophylactic vaccination and inoculation against influenza (V04.81) End: 12-Mar-2016 12:15 [facility] Office Visit On: 26-Jan-2016 15:22 Encounter Reason: Follow up for chronic medical issues - The patient feels well with no complaints, has good energy level and is sleeping well. Patient has been compliant with instructions. Current medication use: no jade End: 27-Jan-2016 7:13 e effects and compliant with dosing regimen. Patient sleeps 6 hours per night. Nutrition: balanced diet. The medical issues the patient is following up for include All identified problems below and bloo d sugar issues. blood pressure range : (has list) and fasting blood sugars : (has list). Note for Follow up for chronic medical issues: Pt had some issues with her sugars being elevated which was from a different kind of niacin she took but has stopped it since then and sugars are better. Pt having left knee issues but is seeing a chiropractor for it.- bp is great at home all runnning 120-/70s-- her blood sugar average is lower , [ADDITIONAL REASON] Follow up, Laboratory Test Results - Date: (01/2016). Encounter Diagnosis: Diabetes mellitus type 2, controlled, Benign essential HTN, Asymptomatic bilateral carotid artery stenosis, Other and unspecified hyperlipidemia (272.4), Acquired hypothyroidism, Benign positional vertigo, bilateral [facility] Office Visit On: 06-Nov-2015 11:07 Encounter Reason: Dizziness - The last clinic visit was 4 day(s) ago. Symptoms include dizziness. The dizziness is described as vertigo and loss of balance (bent over to tie shoes and about fell on her head ). Onset wa End: 06-Nov-2015 11:56 s sudden. The patient describes this as moderate in severity. Associated symptoms include ear fullness. Previous presentation included dizziness and lightheadedness. Note for Dizziness: when turned ov er in bed will spinning in head. mainly at night laying down. when bend head back did it. itf trun head fast notice. not have before. bend over to tie shoes and almost on head. short episodes. no di plopia no headache. suspect inner ear issues. feel with allergies get under pressure. have to yawn to open up. allergies bad recently. take zyretic and still signs and symptoms Encounter Diagnosis: Benign positional vertigo, bilateral, Current nonsmoker (Renamed from Current non-smoker), Chronic sinusitis, unspecified [facility] Office Visit On: 25-Aug-2015 13:18 Encounter Reason: Follow up tests - Date: (08/18 blood work)., [ADDITIONAL REASON] Follow up for chronic medical issues - The patient feels well with no complaints End: 25-Aug-2015 23:15 , has good energy level and is sleeping well. Patient has been compliant with instructions. Current medication use: no side effects and compliant with dosing regimen. Patient sleeps 6 hours per night. N utrition: balanced diet. The medical issues the patient is following up for include All identified problems below and blood sugar issues. blood pressure range : (has list) and fasting blood sugars : (gavin s list). Note for Follow up for chronic medical issues: she just had stress test and was good- and her bp is good- feeling good sugars stable tolerating meds Encounter Diagnosis: Encounter for screening mammogram for breast cancer (Renamed from Encounter for screening mammogram for malignant neoplasm of breast), Other hyperlipidemia, Acquired hypothyroidism, Diabetes mellitus type 2, controlled, Benign essential HTN [facility] Office Visit On: 22-Apr-2015 12:49 Encounter Reason: Follow up for chronic medical issues - The patient feels well with minor complaints (recheck the tops of her feet from the bad sunburn she had back in the summer), has good energy level and is sleeping End: 22-Apr-2015 22:10 poorly. Patient has been compliant with instructions. Current medication use: no side effects and compliant with dosing regimen. Patient sleeps 6 hours per night. Nutrition: balanced diet. The medical i ssues the patient is following up for include All identified problems below. Note for Follow up for chronic medical issues: she thinks had some nerve ending damage in area of fontaine they are tingling w hen take shoes off not so much at night0- and is lesssening over time- - weight down 5pounds - really working hard on this- - bps at home all running pretty good- sugars really pretty good at home fasti ng - she had colosnocopy and was good she done with them, [ADDITIONAL REASON] Follow up, Laboratory Test Results - Date: (04/15/15). Encounter Diagnosis: Hypertension, renal disease, UNSPECIFIED ACQUIRED HYPOTHYROIDISM (244.9), Diabetes mellitus type 2, controlled, Hyperlipidemia, unspecified, Fibrillation, atrial (427.31) [facility] Phone Encounter On: 14-Mar-2015 12:10 [facility] End: 14-Mar-2015 12:11 Office Visit On: 01-Jan-2015 15:34 Encounter Reason: Sunburn - The patient sustained sunburn to the left lower extremity and right lower extremity. Symptoms include pain, blistering and pruritus, while symptoms do not include nausea, vomiting or fever. Th End: 06-Jan-2015 8:03 e patient describes this as mild and improving. Symptoms are not relieved by topical aloe vera. Current treatment includes topical aloe vera. Note for Sunburn: she had more swelling but that some bett er we talked about cold solarciane ice and elevate and bacitracinEncounter Diagnosis: Second degree fontaine [facility] Office Visit On: 18-Dec-2014 13:21 Encounter Reason: Follow up tests - Date: (12/12/14)., [ADDITIONAL REASON] Follow up for chronic medical issues - The patient feels well with no complaints End: 20-Dec-2014 10:38 , has good energy level and is sleeping poorly. Patient has been compliant with instructions. Current medication use: no side effects and compliant with dosing regimen. Patient sleeps 6 hours per night. Nutrition: balanced diet. fasting blood sugars :. Note for Follow up for chronic medical issues: bps athome 118-136/70-80 bps pretty good0 and fasting sugars pretty good too- had eye exam good and gavin s colosnocpy appt set up - feeling good and numbers are good Encounter Diagnosis: UNSPECIFIED ACQUIRED HYPOTHYROIDISM (244.9), Diabetes, Type II, controlled (250.00), UNSPECIFIED HYPERTENSIVE KIDNEY DISEASE, WITHOUT CHRONIC KIDNEY DISEASE (403.90) , Wheeze, Other and unspecified hyperlipidemia (272.4), Fibrillation, atrial (427.31) [facility] Office Visit On: 15-Nov-2014 12:56 Encounter Reason: Cough - The last clinic visit was 9 day(s) ago. No changes in management were made at the last visit. Symptoms include cough, dyspnea, wheezing, runny nose and stuffy nose, while symptoms do not include End: 15-Nov-2014 13:16 chills, fever, sore throat, myalgias, pleuritic chest pain, chest pain or vomiting. The cough is described as productive (yellow). Cough onset was sudden 9 day(s) ago. Onset of cough followed cold symp toms (allergy). The cough occurs constantly. The episodes last for 9 days. Symptoms are described as moderate in severity and unchanged. Symptoms are exacerbated by lying down, while symptoms are not ex acerbated by smoke exposure, pollen exposure, animal exposure, going outside, activity, cold temperature or inhaled bronchodilator use. Symptoms are not relieved by air conditioning, humidified air, war m drinks, warm weather, avoiding irritants, resting, lying down, sitting up, cough drops, cough medicine, acetaminophen, nonsteroidal anti-inflammatory drugs or inhaled bronchodilator use. Associated sy mptoms include postnasal drainage, while associated symptoms do not include mouth breathing, noisy breathing, rapid breathing, hoarseness, painful swallowing, eye itching, nose itching, headache, hemopt ysis or night sweats. Pertinent family history does not include asthma, eczema, coagulation disorder or tuberculosis. Previous presentation included a cough, a runny nose and dyspnea.Encounter Diagnosis: Cough (786.2), ACUTE SINUSITIS, UNSPECIFIED (461.9), Wheeze [facility] Office Visit On: 20-Aug-2014 13:01 Encounter Reason: Follow up for chronic medical issues - The patient feels well with minor complaints (left eye pain), has good energy level and is sleeping well. Patient has been compliant with instructions. Current med End: 20-Aug-2014 21:46 ication use: no side effects and compliant with dosing regimen. Patient sleeps 6 hours per night. Nutrition: balanced diet, supplemental vitamins and low salt diet. The medical issues the patient is fol lowing up for include All identified problems below, blood sugar issues, high blood pressure, high cholesterol and other (allergic rhinitis). blood pressure range : (110-122/69-78), fasting blood sugars : (89 to 116) and weight : (home-180). Note for Follow up for chronic medical issues: bps are good at home- woke up this am with something in her eye and had to work it out for while- - eye getting b marbella - labs good in general other than some stress doing well - has had recent cardio and saw wilberto holden , [ADDITIONAL REASON] Follow up, Laboratory Test Results - Date: (08/15/14). , [ADDITIONAL REASON] Eye Pain - The onset of the eye pain has been sudden and has been occurring in a persistent pattern for hours. The course has been decreasing. The pain is located in the left eye. T here has been associated headache, while there has been no associated change in vision, nausea or vomiting. Encounter Diagnosis: Diabetes, Type II, controlled (250.00), Hyperlipidemia, Unspecified (272.4), UNSPECIFIED HYPERTENSIVE KIDNEY DISEASE, WITHOUT CHRONIC KIDNEY DISEASE (403.90), UNSPECIFIED ACQUIRED HYPOTHYROIDISM (244.9), screening , Fibrillation, atrial (427.31) [facility] Office Visit On: 05-Jun-2014 10:46 Encounter Reason: Injections - The medication the patient is here to receive is other (Influenza).Encounter Diagnosis: Need for prophylactic vaccination and inoculation against influenza (V04.81) End: 05-Jun-2014 11:06 [facility] Office Visit On: 16-Apr-2014 13:02 Encounter Reason: Follow up for chronic medical issues - The patient feels well with no complaints, has good energy level and is sleeping well. Patient has been compliant with instructions. Current medication use: no jade End: 16-Apr-2014 15:20 e effects and compliant with dosing regimen. Patient sleeps 6 hours per night. Nutrition: balanced diet, supplemental vitamins and low salt diet. The medical issues the patient is following up for inclu de All identified problems below, blood sugar issues, high blood pressure, high cholesterol and other (allergic rhinitis). blood pressure range : (110-122/69-78), fasting blood sugars : (89 to 116) and weight : (home-180). Note for Follow up for chronic medical issues: bp is good at home too and fasting sugars are reviewed and good- sleeping good and feeling good, [ADDITIONAL REASON] Follow up, Laboratory Test Results - Date: (04/08/14). Encounter Diagnosis: Diabetes, Type II, controlled (250.00), UNSPECIFIED HYPERTENSIVE KIDNEY DISEASE, WITHOUT CHRONIC KIDNEY DISEASE (403.90), Hyperlipidemia, Unspecified (272.4), Osteopenia (733.90), UNSPECIFIED ACQUIRED HYPOTHYROIDISM (244.9), Need for vaccination against Streptococcus pneumoniae [facility] Office Visit On: 19-Dec-2013 12:56 Encounter Reason: Follow up for chronic medical issues - The patient feels well with minor complaints (edema on inside of right ankle), has good energy level and is sleeping well (sometimes not so much). Patient has been End: 19-Dec-2013 13:31 compliant with instructions. Current medication use: no side effects and compliant with dosing regimen. Patient sleeps 5 (and sometimes 7 - sleeping better) hours per night. Nutrition: balanced diet, s upplemental vitamins and low salt diet. The medical issues the patient is following up for include All identified problems below, blood sugar issues, high blood pressure, high cholesterol and other (all ergic rhinitis). blood pressure range : (110-122/69-78), fasting blood sugars : (89 to 116) and weight : (home-180). Note for Follow up for chronic medical issues: she saw shey and doing ok -and tosin le swelling in ankles less in am more at night - feels like little bit- and not more sob is more active and sugar coming down did do eye examEncounter Diagnosis: Diabetes, Type II, controlled (250.00), UNSPECIFIED ACQUIRED HYPOTHYROIDISM (244.9), Swelling of joint, ankle, right, Hyperlipidemia, Unspecified (272.4), Osteopenia (733.90), UNSPECIFIED HYPERTENSIVE KIDNEY DISEASE, WITHOUT CHRONIC KIDNEY DISEASE (403.90) [facility] Office Visit On: 20-Aug-2013 14:19 Encounter Reason: Follow up for chronic medical issues - The patient feels well with minor complaints (edema on inside of right ankle), has good energy level and is sleeping well (sometimes not so much). Patient has been End: 20-Aug-2013 21:41 compliant with instructions. Current medication use: no side effects and compliant with dosing regimen. Patient sleeps 5 hours per night. Nutrition: balanced diet, supplemental vitamins and low salt di et. The medical issues the patient is following up for include All identified problems below, blood sugar issues, high blood pressure, high cholesterol and other (allergic rhinitis). blood pressure rang e : (110-122/69-78), fasting blood sugars : (89 to 116) and weight : (home-180). Note for Follow up for chronic medical issues: she is getting treated for pinched nerve in back with traction and helpi ng and weight down 2 pounds and bp is good- and saw Shey and things were goo and chol good and no side effects of med s, [ADDITIONAL REASON] Follow up, Laboratory Test Results - Date: (08/03/13). Encounter Diagnosis: Diabetes, Type II, controlled (250.00), Hyperlipidemia, Unspecified (272.4), UNSPECIFIED ACQUIRED HYPOTHYROIDISM (244.9), Swelling of joint, ankle, right, Cardiac dysrhythmia (427.9), UNSPECIFIED HYPERTENSIVE KIDNEY DISEASE, WITHOUT CHRONIC KIDNEY DISEASE (403.90) [facility] Historical Summary On: 02-May-2013 14:59 [facility] End: 02-May-2013 15:00 Office Visit On: 04-Apr-2013 13:02 Encounter Reason: Follow up for chronic medical issues - The patient feels well with no complaints, has good energy level and is sleeping well (sometimes not so much). Patient has been compliant with instructions. [facility] End: 04-Apr-2013 14:07 t medication use: no side effects and compliant with dosing regimen. Patient sleeps 5 hours per night. Nutrition: balanced diet, supplemental vitamins and low salt diet. The medical issues the patient i s following up for include All identified problems below, blood sugar issues, high blood pressure, high cholesterol and other (allergic rhinitis). blood pressure range : (110-122/69-78), fasting blood s ugars : (89 to 116) and weight : (home-180). Note for Follow up for chronic medical issues: weight stable- bp is great at home all well controlled - her fasting sugars are all under 115- and she feels ok- , [ADDITIONAL REASON] Follow up, Laboratory Test Results - Date: (03/29/13). Encounter Diagnosis: Diabetes, Type II, controlled (250.00), Need for prophylactic vaccination and inoculation against influenza (V04.81), UNSPECIFIED HYPERTENSIVE KIDNEY DISEASE, WITHOUT CHRONIC KIDNEY DISEASE (403.90), UNSPECIFIED ACQUIRED HYPOTHYROIDISM (244.9), Osteopenia (733.90), Hyperlipidemia, Unspecified (272.4), screening [facility] Office Visit On: 17-Nov-2012 10:48 Encounter Reason: Follow up for chronic medical issues - The patient feels well with no complaints, has good energy level and is sleeping well (sometimes not so much). Patient has been compliant with instructions. Nallely End: 17-Nov-2012 11:26 t medication use: no side effects and compliant with dosing regimen. Patient sleeps 5 hours per night. Nutrition: balanced diet, supplemental vitamins and low salt diet. The medical issues the patient i s following up for include All identified problems below, blood sugar issues, high blood pressure, high cholesterol and other (allergic rhinitis). blood pressure range : (110-122/69-78), fasting blood s ugars : (89 to 116) and weight : (home-180). Note for Follow up for chronic medical issues: she thinks she passed stone and has follow to check- her bp is good and weight down a pound sugar up ??a bit - but thinks stress on body- no secondary reason why bones thinning she now walking 6 days a week, [ADDITIONAL REASON] Follow up, Laboratory Test Results - Date: (11/13/12). Encounter Diagnosis: Diabetes, Type II, controlled (250.00), UNSPECIFIED HYPERTENSIVE KIDNEY DISEASE, WITHOUT CHRONIC KIDNEY DISEASE (403.90), Hyperlipidemia, Unspecified (272.4), Osteopenia (733.90), UNSPECIFIED ACQUIRED HYPOTHYROIDISM (244.9) [facility] Phone Encounter On: 18-Sep-2012 14:03 Encounter Diagnosis: UTI (urinary tract infection), uncomplicated (599.0) End: 18-Sep-2012 14:05 [facility] Office Visit On: 14-Sep-2012 13:19 Encounter Diagnosis: Kidney stone (592.0) End: 15-Sep-2012 13:15 [facility] Annotation/Addendum On: 28-Aug-2012 11:39 Encounter Diagnosis: Unspecified Diagnosis End: 28-Aug-2012 12:43 [facility] Phone Encounter On: 11-Aug-2012 9:20 Encounter Diagnosis: UTI (urinary tract infection), uncomplicated (599.0) End: 11-Aug-2012 9:22 [facility] Annotation/Addendum On: 07-Aug-2012 14:24 Encounter Diagnosis: Kidney stone (592.0) End: 07-Aug-2012 14:30 [facility] Office Visit On: 07-Aug-2012 11:26 Encounter Reason: Urinary problems - The onset of the urinary problems has been sudden and they have been occurring in a persistent pattern for 2 days. The course has been increasing. The urinary problems are described a End: 07-Aug-2012 14:06 s moderate. The urinary problem is characterized as frequency and urgency. There has been associated blood in urine.Encounter Diagnosis: Dysuria (788.1), Lumbago (724.2), Hematuria, unspecified (599.70), Anticoagulant long-term use (V58.61) [facility] Office Visit On: 21-Jul-2012 10:08 Encounter Reason: Follow up for chronic medical issues - The patient feels well with no complaints, has good energy level and is sleeping well (sometimes not so much). Patient has been compliant with instructions. Curren End: 21-Jul-2012 11:00 t medication use: no side effects and compliant with dosing regimen. Patient sleeps 5 hours per night. Nutrition: balanced diet, supplemental vitamins and low salt diet. The medical issues the patient i s following up for include All identified problems below, blood sugar issues, high blood pressure, high cholesterol and other (allergic rhinitis). blood pressure range : (110-122/69-78), fasting blood s ugars : (89 to 116) and weight : (home-180). Note for Follow up for chronic medical issues: - she is feeling good- and has perfect bps at home- she sometimes doesnt sleep if her joint are aching- stil l taking calcium and vit d and tries to walk daily but often has to take time off due to joints and back getting worse- -she will try mealonitn for sleeep, [ADDITIONAL REASON] Follow up, Laboratory Test Results - Date: (07/14/12). Encounter Diagnosis: Diabetes, Type II, controlled (250.00), UNSPECIFIED ACQUIRED HYPOTHYROIDISM (244.9), UNSPECIFIED HYPERTENSIVE KIDNEY DISEASE, WITHOUT CHRONIC KIDNEY DISEASE (403.90), Osteopenia (733.90), Rash (782.1), Insect bite, nonvenomous of face, neck, and scalp except eye, without mention of infection (910.4), Hyperlipidemia, Unspecified (272.4), BRONCHITIS, NOT SPECIFIED ACUTE OR CHRONIC (490.) [facility] Office Visit On: 18-Apr-2012 11:31 Encounter Reason: Skin Problems - The onset of the problems has been sudden and they have been occurring in a persistent pattern for 3 days. The course has been constant. The problem is characterized as itching and a yunior End: 18-Apr-2012 13:00 nge in skin color. There has been associated itching, while there has been no chills.Encounter Diagnosis: Insect bite, nonvenomous of face, neck, and scalp except eye, without mention of infection (910.4), Rash (782.1) [facility] Office Visit On: 29-Feb-2012 11:20 Encounter Reason: Follow up tests - Date: ()., [ADDITIONAL REASON] Follow up for chronic medical issues - The patient feels well with minor complai End: 29-Feb-2012 22:33 nts, has decreased energy level and is sleeping poorly. Patient has been compliant with instructions. Current medication use: no side effects and compliant with dosing regimen. Patient sleeps 7 hours pe r night. Nutrition: balanced diet, supplemental vitamins and low salt diet. The medical issues the patient is following up for include All identified problems below, blood sugar issues, high blood press ure, high cholesterol and other (allergic rhinitis). blood pressure range : (110-122/69-78), fasting blood sugars : (89 to 116) and weight : (home-180). Note for Follow up for chronic medical issues: she is nt taking 2 on tue and tuesday of thyroid so will have her take two on tuesday- she is feeling wello therwise- sugars and bp is good and heart has been regualr Encounter Diagnosis: Need for prophylactic vaccination and inoculation against influenza (V04.81), Diabetes, Type II, controlled (250.00), Hyperlipidemia, Unspecified (272.4), UNSPECIFIED ACQUIRED HYPOTHYROIDISM (244.9), Bacterial pneumonia, unspecified (482.9), Osteopenia (733.90), Cough (786.2) [facility] Office Visit On: 12-Nov-2011 9:14 Encounter Reason: Follow up acute care visit - The patient feeling better since last seen. Patient has been compliant with instructions. Current medication use: no side effects. Patient sleeps 7 hours per night. The medi End: 12-Nov-2011 9:53 drew issues the patient is following up for include other (pneumonia). Note for Follow up acute care visit: she is done with antiobiotics and feeling better=- not much cough now- the breathing is stil l some issues- still little sob- not like was by any sense- and no energy- no fever -now , [ADDITIONAL REASON] Follow up tests - Date: (cxr 11.05.11). Encounter Diagnosis: Bacterial pneumonia, unspecified (482.9) [facility] Office Visit On: 05-Nov-2011 12:36 Encounter Reason: Follow up acute care visit - The patient feeling better since last seen and improving. Patient has been compliant with instructions. Current medication use: no side effects, compliant with dosing regime End: 05-Nov-2011 13:11 n and considered effective by patient. Patient sleeps 6 hours per night. The medical issues the patient is following up for include All identified problems below and other (bronchitis).Encounter Diagnosis: Bacterial pneumonia, unspecified (482.9), Diabetes, Type II, controlled (250.00) [facility] Office Visit On: 29-Oct-2011 11:21 Encounter Reason: Sinusitis/ - The duration of the symptoms are 2 weeks The course has been worsening. The sinusitis/ has no relieving factors. Associated features include The symptoms have been associated with cough (pr End: 29-Oct-2011 11:47 oductive of thick yellow/armenta sputum), nasal discharge/stuffy nose (clear) and sinus pain, ??while the symptoms have not been associated with ear pain, sore throat, swollen lymph glands or teeth pain. No previous evaluations were reported. Encounter Diagnosis: Cough (786.2), BRONCHITIS, NOT SPECIFIED ACUTE OR CHRONIC (490.) [facility] Office Visit On: 28-Sep-2011 9:08 Encounter Reason: Follow up for chronic medical issues - The patient feels well with no complaints, has good energy level and is sleeping well. Patient has been compliant with instructions. Current medication use: no jade End: 28-Sep-2011 9:56 e effects and compliant with dosing regimen. Patient sleeps 7 hours per night. Nutrition: balanced diet, supplemental vitamins and low salt diet. The medical issues the patient is following up for inclu de All identified problems below, blood sugar issues, high blood pressure, high cholesterol and other (allergic rhinitis). blood pressure range : (110's/50's to 120's/70's), fasting blood sugars : (90's to 110's) and weight : (home-180). Note for Follow up for chronic medical issues: bp and weight stable and feels prettygood- chol great and saw shey and heart been good - sugar is stable, [ADDITIONAL REASON] Follow up, Laboratory Test Results - Date: (09/22/11). Encounter Diagnosis: Diabetes, Type II, controlled (250.00), UNSPECIFIED ACQUIRED HYPOTHYROIDISM (244.9), Osteopenia (733.90), Hyperlipidemia, Unspecified (272.4), UNSPECIFIED HYPERTENSIVE KIDNEY DISEASE, WITHOUT CHRONIC KIDNEY DISEASE (403.90) [facility] Office Visit On: 01-Jun-2011 10:55 Encounter Reason: Follow up for chronic medical issues - The patient feels well with no complaints, has good energy level and is sleeping well. Patient has been compliant with instructions. Current medication use: no jade End: 01-Jun-2011 12:16 e effects and compliant with dosing regimen. Patient sleeps 7 hours per night. Nutrition: balanced diet, supplemental vitamins and low salt diet. The medical issues the patient is following up for inclu de All identified problems below, blood sugar issues, high blood pressure, high cholesterol and other (allergic rhinitis). blood pressure range : (110's/50's to 120's/70's), fasting blood sugars : (90's to 110's) and weight : (home-180). Note for Follow up for chronic medical issues: bps at home great -camilla in and feels well and sugar betteer and had eye exam this year - had ekg- this year from cardio- saw cardio and things going well there , [ADDITIONAL REASON] Follow up, Laboratory Test Results - Date: (05/28/11). Encounter Diagnosis: Diabetes, Type II, controlled (250.00), Need for prophylactic vaccination and inoculation against influenza (V04.81), UNSPECIFIED HYPERTENSIVE KIDNEY DISEASE, WITHOUT CHRONIC KIDNEY DISEASE (403.90), Hyperlipidemia, Unspecified (272.4), UNSPECIFIED ACQUIRED HYPOTHYROIDISM (244.9), Osteopenia (733.90), Fibrillation, atrial (427.31), screening [facility] Office Visit On: 30-Mar-2011 8:29 Encounter Reason: Follow up acute care visit - The patient feeling better since last seen and improving. Patient has been compliant with instructions. Current medication use: no side effects, compliant with dosing regime End: 30-Mar-2011 12:10 n and considered effective by patient. Patient sleeps 7 hours per night. The medical issues the patient is following up for include All identified problems below and UTI.Encounter Diagnosis: Dysuria (788.1) [facility] Office Visit On: 16-Mar-2011 13:07 Encounter Reason: Hematuria - The last clinic visit was 3 day(s) ago. Symptoms include bright red urine and suprapubic pain, while symptoms do not include dysuria, urgency, frequency or flank pain. Onset was sudden 3 day End: 16-Mar-2011 13:40 (s) ago. There is no known event that preceded symptom onset. The symptoms occur constantly. The patient describes this as worsening.Encounter Diagnosis: Hematuria, unspecified (599.70) [facility] Visit On: 25-Jan-2011 9:29 Encounter Reason: Follow up for chronic medical issues - The patient feels well with no complaints, has decreased energy level (I think it is just the weather, hard to tell) and is sleeping well. Patient has been complia End: 25-Jan-2011 11:01 nt with instructions. Current medication use: no side effects and compliant with dosing regimen. Patient sleeps 7 hours per night. Nutrition: balanced diet, supplemental vitamins and low salt diet. The medical issues the patient is following up for include All identified problems below, blood sugar issues, high blood pressure, high cholesterol and other (allergic rhinitis). blood pressure range : (110 's/50's to 120's/70's), fasting blood sugars : (90's to 110's) and weight : (home- 180). Note for Follow up for chronic medical issues: she is feeling little less energetic- hasnt been able to walk wit h the heat and weightup few pounds- and bp is good - no afib issues and had stress test with [facility]-allergies acceptable, [ADDITIONAL REASON] Follow up, Laboratory Test Results - Date: (01.19.11). Encounter Diagnosis: Diabetes, Type II, controlled (250.00), UNSPECIFIED ACQUIRED HYPOTHYROIDISM (244.9), Hyperlipidemia, Unspecified (272.4), UNSPECIFIED HYPERTENSIVE KIDNEY DISEASE, WITHOUT CHRONIC KIDNEY DISEASE (403.90), Allergic rhinitis, cause unspecified (477.9) [facility] Visit On: 28-Sep-2010 10:10 Encounter Reason: Follow up for chronic medical issues - The patient feels well with no complaints, has good energy level and is sleeping well. Patient has been compliant with instructions. Current medication use: no jade End: 28-Sep-2010 10:45 e effects and compliant with dosing regimen. Patient sleeps 7 hours per night. Nutrition: balanced diet, supplemental vitamins and low salt diet. The medical issues the patient is following up for inclu de All identified problems below, blood sugar issues, high blood pressure, high cholesterol and other (allergic rhinitis). blood pressure range : (110's/50's to 120's/70's), fasting blood sugars : (90's to 110's) and weight : (home-180). Note for Follow up for chronic medical issues: she is feeling well although allergy jimmyon is coming - so she will start using her meds as needed- bps are good at ho ca and weight down another pounds- sugars are good at home-just saw cardio last week and had stresss test and was good, [ADDITIONAL REASON] Follow up, Laboratory Test Results - Date: (09/21/10). Encounter Diagnosis: UNSPECIFIED HYPERTENSIVE KIDNEY DISEASE, WITHOUT CHRONIC KIDNEY DISEASE (403.90), UNSPECIFIED ACQUIRED HYPOTHYROIDISM (244.9), Diabetes, Type II, controlled (250.00), Hyperlipidemia, Unspecified (272.4) [facility] Visit On: 02-Jun-2010 9:39 Encounter Reason: Follow up for chronic medical issues - The patient feels well with no complaints, has good energy level and is sleeping well. Patient has been compliant with instructions. Current medication use: no jade End: 02-Jun-2010 10:32 e effects and compliant with dosing regimen. Patient sleeps 7 hours per night. Nutrition: balanced diet, supplemental vitamins and low salt diet. The medical issues the patient is following up for inclu de All identified problems below, blood sugar issues, high blood pressure, high cholesterol and other (allergic rhinitis). blood pressure range : (110's/50's to 120's/70's), fasting blood sugars : (90's to 120's) and weight : (180). Note for Follow up for chronic medical issues: feeling good- kept weight stable over holiday- and bp is great at home really well controlled - got flu shot- blood sugars are better- takes 1200mg of calcium a day and vit d - will check vit d and she will increase weight bearing exercise as she hasnt been doing as routine exercise- she is follwoing with cardio and feels well- , [ADDITIONAL REASON] Follow up, Laboratory Test Results - Date: (05/26/10). Encounter Diagnosis: Diabetes, Type II, controlled (250.00), Hyperlipidemia, Unspecified (272.4), UNSPECIFIED ACQUIRED HYPOTHYROIDISM (244.9), UNSPECIFIED HYPERTENSIVE KIDNEY DISEASE, WITHOUT CHRONIC KIDNEY DISEASE (403.90), Hypertension (401.0), Osteopenia (733.90) [facility] Visit On: 27-Apr-2010 13:24 Encounter Reason: Injections - The medication the patient is here to receive is other (Influenza).Encounter Diagnosis: VACCINE AGAINST INFLUENZA (V04.81) End: 27-Apr-2010 13:32 [facility] Visit On: 02-Mar-2010 10:46 Encounter Reason: Follow up for chronic medical issues - The patient feels well with no complaints ,has good energy level and is sleeping well. Patient has been compliant with instructions. Current medication use: no jade End: 02-Mar-2010 11:29 e effects and compliant with dosing regimen. Patient sleeps 7 hours per night. Nutrition: balanced diet ,supplemental vitamins and low salt diet. The medical issues the patient is following up for inclu de All identified problems below ,blood sugar issues ,high blood pressure ,high cholesterol and other (allergic rhinitis). blood pressure range : (110's/50's to 120's/70's) ,fasting blood sugars : (90's to low 140's) and weight : (186). Note for Follow up for chronic medical issues: she had heart cath and was diagnosed with afib and pvcs- now on flecainide toprol and coumadin, [ADDITIONAL REASON] Follow up, Laboratory Test Results - Date: (02/24/10). Encounter Diagnosis: Diabetes, Type II, controlled (250.00), UNSPECIFIED ACQUIRED HYPOTHYROIDISM (244.9), PVC, OTHER PREMATURE BEATS (427.69), Fibrillation, atrial (427.31), UNSPECIFIED HYPERTENSIVE KIDNEY DISEASE, WITHOUT CHRONIC KIDNEY DISEASE (403.90), Hyperlipidemia, Unspecified (272.4), screening, postmenopausal without estrogen [facility] Visit On: 15-Dec-2009 10:40 Encounter Reason: Bruising - The onset of the bruising has been sudden and has been occurring in a persistent pattern for 1 weeks. The course has been constant. The bruising is moderate. The bruising is described as bein End: 15-Dec-2009 11:41 g located on the skin of right upper extremity. The bruising was precipitated by trauma (dog). The symptoms have been associated with joint pains and use of anticoagulant (2.5mg qd of coumiden), while t he symptoms have not been associated with bleeding ,fatigue ,fever or skin rash. Encounter Diagnosis: Hand (882.1), Finger (883.1) [facility] Visit On: 10-Nov-2009 16:31 Encounter Reason: Follow up, Diagnostic Procedure Results - Diagnostic tests include other (holter monitor). Date: (11/06/09- in scanned documents). Encounter Diagnosis: Cardiac dysrhythmia (427.9) End: 10-Nov-2009 17:33 [facility] Visit On: 29-Oct-2009 11:09 Encounter Reason: Follow up for chronic medical issues - The patient feels well with minor complaints (since off lodine, shoulder has been bothering her more, but mostly at hs and then keeps her up. Pt wants advise on wh End: 29-Oct-2009 12:08 at to do from here since off lodine.) ,has good energy level and is sleeping well (sometimes not- off the lodine and shoulder pain will wake her up). Patient has been compliant with instructions. Renataen t medication use: no side effects and compliant with dosing regimen. Patient sleeps 6 hours per night. Nutrition: balanced diet ,supplemental vitamins and low salt diet. The medical issues the patient i s following up for include All identified problems below ,blood sugar issues ,high blood pressure ,high cholesterol and other (allergic rhinitis). blood pressure range : (110's/70's to 120's/70's) ,fast ing blood sugars : (90's to low 100's) and weight : (186). Note for Follow up for chronic medical issues: her weight coming down with metformin and thyroid- --bps great at home--, [ADDITIONAL REASON] Follow up, Laboratory Test Results - Date: (10/24/09). Encounter Diagnosis: Diabetes, Type II, controlled (250.00), Hyperlipidemia, Unspecified (272.4), Pain in joint involving shoulder region (719.41), UNSPECIFIED ACQUIRED HYPOTHYROIDISM (244.9), Hypertension (401.0), Cardiac dysrhythmia (427.9) [facility] Visit On: 01-Aug-2009 11:03 Encounter Reason: Follow up for chronic medical issues - The patient feels well with no complaints ,has good energy level and is sleeping well. Patient has been compliant with instructions. Current medication use: no jade End: 01-Aug-2009 11:49 e effects and compliant with dosing regimen. Patient sleeps 7 hours per night. Nutrition: balanced diet ,supplemental vitamins and low salt diet. The medical issues the patient is following up for inclu de All identified problems below ,blood sugar issues ,high blood pressure ,high cholesterol and other (allergic rhinitis). blood pressure range : (110's/70's to 120's/70's) ,fasting blood sugars : (90's to low 100's) and weight :. Note for Follow up for chronic medical issues: her weight still coming down- and bps are good- feels better off actos and feels like can be more active, [ADDITIONAL REASON] Follow up, Laboratory Test Results - Date: (07/23/09). Encounter Diagnosis: Type II Diabetes,uncontrolled (250.02), UNSPECIFIED HYPERTENSIVE KIDNEY DISEASE, WITHOUT CHRONIC KIDNEY DISEASE (403.90), Other and unspecified hyperlipidemia (272.4), UNSPECIFIED ACQUIRED HYPOTHYROIDISM (244.9), SOB (786.05), Edema (782.3) [facility] Visit On: 30-Apr-2009 8:38 Encounter Reason: Follow up for chronic medical issues - The patient feels well with minor complaints (allergy problems- continued clear nasal drainage and takes zyrtec and singular plus a nasal spray- has alot of post-n End: 30-Apr-2009 9:23 malka drip) ,has good energy level and is sleeping well. Patient has been compliant with instructions. Current medication use: no side effects and compliant with dosing regimen. Patient sleeps 7 hours pe r night. Nutrition: balanced diet ,supplemental vitamins and low salt diet. The medical issues the patient is following up for include All identified problems below ,blood sugar issues ,high blood press ure ,high cholesterol and other (allergic rhinitis). blood pressure range : (110's/70's to 120's/70's) and fasting blood sugars : (90's to low 100's). Note for Follow up for chronic medical issues: richie long is off actos and is managing the glucophage initally nausea and still sometimes but tolerating well and weight is coming down- her bps at home great and she isdoing well, [ADDITIONAL REASON] Follow up, Laboratory Test Results - Date: (04/23/09). Encounter Diagnosis: Diabetes, Type II, controlled (250.00), UNSPECIFIED ACQUIRED HYPOTHYROIDISM (244.9), Other and unspecified hyperlipidemia (272.4), UNSPECIFIED HYPERTENSIVE KIDNEY DISEASE, WITHOUT CHRONIC KIDNEY DISEASE (403.90), Cough (786.2), Allergic rhinitis, cause unspecified (477.9) [facility] Nurse Visit On: 21-Apr-2009 10:37 Encounter Diagnosis: Need for prophylactic vaccination and inoculation against influenza (V04.81) End: 21-Apr-2009 10:39 [facility] Visit On: 21-Jan-2009 9:20 Encounter Reason: Follow up for chronic medical issues - The patient feels well with no complaints ,has good energy level and is sleeping well. Patient has been compliant with instructions. Current medication use: no jade End: 21-Jan-2009 10:17 e effects and compliant with dosing regimen. Patient sleeps 8 hours per night. Nutrition: balanced diet ,supplemental vitamins and low salt diet. The medical issues the patient is following up for inclu de All identified problems below ,blood sugar issues ,high blood pressure ,high cholesterol ,hypothyroid and osteoarthritis. Note for Follow up for chronic medical issues: weight down 8 pounds and she has been working hard on it- -- her edema i better and her sob- comes and goes- if she rakes the hay- she doesnt breath well -s he is sure it is allergy-- - her bps at home all great 110-120 /50-70- and her sugasrs are great , [ADDITIONAL REASON] Follow up, Laboratory Test Results - Date: (01/16/09). Encounter Diagnosis: Diabetes, Type II, controlled (250.00), UNSPECIFIED ACQUIRED HYPOTHYROIDISM (244.9), Other and unspecified hyperlipidemia (272.4), Hypertension (401.0), UNSPECIFIED HYPERTENSIVE KIDNEY DISEASE, WITHOUT CHRONIC KIDNEY DISEASE (403.90) [facility] Visit On: 30-Oct-2008 11:11 Encounter Reason: Follow up, Diagnostic Procedure Results - Diagnostic tests include ECHO (in scanned documents). Date: (10/02/08). Note for Follow up, Diagnostic Procedure Results: wt down 3 pounds and she is feeling si End: 30-Oct-2008 11:57 gnificantly better - her breathing is better and thinks the singulair helped alot she used prn and worked that way and with her thyroid better edema agone and echo normalEncounter Diagnosis: Edema (782.3), UNSPECIFIED ACQUIRED HYPOTHYROIDISM (244.9) , SOB (786.05), Allergic rhinitis, cause unspecified (477.9) [facility] Visit On: 24-Sep-2008 8:39 Encounter Reason: Follow up for chronic medical issues - The patient feels well with minor complaints (edema in ankles and allergies) ,has decreased energy level and is sleeping well. Patient has been compliant with inst End: 24-Sep-2008 22:21 ructions. Current medication use: no side effects and compliant with dosing regimen. Patient sleeps 7 hours per night. Nutrition: balanced diet ,supplemental vitamins and low salt diet. The medical issu es the patient is following up for include All identified problems below ,blood sugar issues ,high blood pressure ,high cholesterol ,hypothyroid ,kidney problems (kidney dz) ,osteoarthritis and other (a llergic rhinits). blood pressure range : (110's//50's to 120's/60's, varies) ,fasting blood sugars : (90's to low 100's) and weight :. , [ADDITIONAL REASON] Follow up, Laboratory Test Results - Date: (09/17/08- under date of 05/11). , [ADDITIONAL REASON] Edema - The onset of the edema has been gradual and has been occurring in a persistent pattern for 1 months. The course has been increasing. The edema is described as being located in both lower extremities (ankles). The symptoms prolonged standing. The symptoms have been associated with fatigue ,hypertension ,known diabetes ,known kidney disease ,wheezing ,cough and short of jovanni th, while the symptoms have not been associated with abdominal pain ,chest pain ,redness ,use of new medication ,use of oral contraceptives ,use of steroids ,calf pain or use of NSAIDs. Note for Edema: no increase salt Encounter Diagnosis: Diabetes, Type II, controlled (250.00), UNSPECIFIED ACQUIRED HYPOTHYROIDISM (244.9), SOB (786.05), Edema (782.3), Hypertension (401.0) [facility] Visit On: 25-Jun-2008 10:10 Encounter Reason: Follow up for chronic medical issues - The patient feels well with minor complaints (arthritis) ,has good energy level and is sleeping well (with tylenol arthritis). Patient has been compliant with inst End: 25-Jun-2008 10:53 ructions. Current medication use: no side effects and compliant with dosing regimen. Patient sleeps 8 hours per night. Nutrition: balanced diet ,supplemental vitamins and low salt diet. The medical issu es the patient is following up for include All identified problems below ,blood sugar issues ,high blood pressure ,high cholesterol ,hypothyroid ,osteoarthritis and other (allergic rhinitis, diverticulo sis). blood pressure range : (110's/70's to 120's/80's) ,fasting blood sugars : (90's to low 100's) and weight :. Note for Follow up for chronic medical issues: she is walking more and her weight is d own 6 pounds-- and her bp is 115- 120 /70-80-- BLOOD SUGARS 90-100, [ADDITIONAL REASON] Follow up, Laboratory Test Results - Date: (06/19/08). Encounter Diagnosis: Diabetes, Type II, controlled (250.00), UNSPECIFIED ACQUIRED HYPOTHYROIDISM (244.9) , Allergic rhinitis, cause unspecified (477.9), Osteoarthrosis, unspecified whether generalized or localized, involving unspecified site (715.90), Hypertension (401.0), Hyperlipidemia, Unspecified (272.4) [facility] Visit On: 26-Mar-2008 10:31 Encounter Reason: Follow up for chronic medical issues - The patient does not feel well (chest cold/cough) ,has decreased energy level and is sleeping poorly. Patient has been compliant with instructions. Current medicat End: 26-Mar-2008 11:36 ion use: no side effects and compliant with dosing regimen. Patient sleeps 5 hours per night. Nutrition: balanced diet ,supplemental vitamins and low salt diet. The medical issues the patient is followi ng up for include All identified problems below ,blood sugar issues ,high blood pressure ,high cholesterol ,osteoarthritis and other (lumbago, diverticulosis). blood pressure range : (110's/70's to 120' s/80's) ,fasting blood sugars : (80's to 100's) and weight :. Note for Follow up for chronic medical issues: ankle is better and blood sugars and blood pressure is good and so is chol, [ADDITIONAL REASON] Follow up, Laboratory Test Results - Date: (03/19/08). , [ADDITIONAL REASON] Cough - The onset of the cough has been sudden (last tuesday). The cough is mindy cterized as productive of mucopurulent sputum. The amount of sputum produced is scanty. The cough occurs all the time. The symptoms are not aggravated by supine posture or meals. The symptoms have been associated with headache ,hoarseness ,runny nose and sore throat, while the symptoms have not been associated with fever or wheezing. the color of the sputum is yellowish (to whitish). Encounter Diagnosis: Diabetes, Type II, controlled (250.00), UNSPECIFIED ACQUIRED HYPOTHYROIDISM (244.9), UNSPECIFIED HYPERTENSIVE KIDNEY DISEASE, WITHOUT CHRONIC KIDNEY DISEASE (403.90), Cough (786.2), Other and unspecified hyperlipidemia (272.4), Allergic rhinitis, cause unspecified (477.9) [facility] Visit On: 29-Dec-2007 9:24 Encounter Reason: Follow up for chronic medical issues - The patient feels well with no complaints ,has good energy level and is sleeping well. Patient has been compliant with instructions. Current medication use: no jade End: 31-Dec-2007 21:59 e effects and compliant with dosing regimen. The medical issues the patient is following up for include All identified problems below ,blood sugar issues ,high blood pressure ,high cholesterol ,osteoart hritis and other (allergic rhinitis, diverticulosis). blood pressure range : (110's/60's to 120's/70's) ,fasting blood sugars : (80's to 100's) and weight :. Note for Follow up for chronic medical issu es: she doesnt feel needs meds for anxiety-- bps are great at home-- her blood sugars are greatEncounter Diagnosis: Diabetes, Type II, controlled (250.00), Hypertension (401.0), Other and unspecified hyperlipidemia (272.4), UNSPECIFIED HYPERTENSIVE KIDNEY DISEASE, WITHOUT CHRONIC KIDNEY DISEASE (403.90), UNSPECIFIED ACQUIRED HYPOTHYROIDISM (244.9) [facility] Visit On: 26-Sep-2007 9:05 Encounter Reason: Well Women Exam - The patient feels well with no complaints ,has good energy level and is sleeping well. Pap smear: date of last pap: (09/07). Contraceptive history: The patient is not using any method o End: 26-Sep-2007 9:47 f contraception at this time. Patient exercises 3 - 4 times per week. The patient's libido is normal. The patient reports that she performs monthly self breast exam. Calcium intake includes 1500 mg with Vit D daily supplement and 1 serving milk daily. Previous evaluations: hysterectomy (still has part of her right ovary). The patient denies the use of oral contraceptives or hormone replacement therapy. Encounter Diagnosis: Well Woman Exam (V72.31) (Pap,Mammo,Routine Female) [facility] Visit On: 02-Aug-2007 9:44 Encounter Reason: Follow up for chronic medical issues - The patient feels well with no complaints ,has good energy level and is sleeping well. Patient has been compliant with instructions. Current medication use: no jade End: 02-Aug-2007 10:30 e effects and compliant with dosing regimen. Nutrition: balanced diet ,supplemental vitamins and low salt diet. The medical issues the patient is following up for include All identified problems below , blood sugar issues ,high blood pressure ,high cholesterol ,hypothyroid ,osteoarthritis and other (allergic rhinitis). blood pressure range : (120's/60's) and fasting blood sugars : (80's to 89). 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 Encounter Diagnosis: Allergic rhinitis, cause unspecified (477.9), Osteoarthrosis, unspecified whether generalized or localized, involving unspecified site (715.90), Hypertension (401.0), Diabetes, Type II, controlled (250.00), UNSPECIFIED ACQUIRED HYPOTHYROIDISM (244.9) [facility] Office Visit On: 03-May-2007 9:46 Encounter Reason: Follow up for chronic medical issues - The patient feels well with minor complaints (skin lesions) ,has good energy level and is sleeping well. Patient has been compliant with instructions. Current medi End: 03-May-2007 10:45 cation use: no side effects and compliant with dosing regimen. Nutrition: balanced diet ,supplemental vitamins and low salt diet. The medical issues the patient is following up for include All identifie d problems below ,blood sugar issues ,high blood pressure ,high cholesterol ,hypothyroid ,osteoarthritis and other (allergic rhinitis). blood pressure range : (120's/70's) ,fasting blood sugars : (90's) and weight :. Note for Follow up for chronic medical issues: bps are great at home 116- 120 primarily and over 70s, [ADDITIONAL REASON] Follow up, Laboratory Test Results - Date: (04/25/07). , [ADDITIONAL REASON] Skin lesion - The skin lesion appeared gradually and has been occurring for 6 weeks. It has been increasing in size. The skin lesion is characterized as red ,crusty and raised above the skin. The skin lesion is located on the back (shoulder) and the face (nose). There has been no associated chills ,fatigue ,fever ,itching ,loss of sensation or pain. Encounter Diagnosis: Diabetes, Type II, controlled (250.00), Hyperlipidemia, Unspecified (272.4), UNSPECIFIED ACQUIRED HYPOTHYROIDISM (244.9), UNSPECIFIED HYPERTENSIVE KIDNEY DISEASE, WITHOUT CHRONIC KIDNEY DISEASE (403.90), atypical skin lesions- rule out basal cell ca [facility] Office Visit On: 24-Jan-2007 11:28 Encounter Reason: Follow up for chronic medical issues - The patient feels well with no complaints ,has good energy level and is sleeping well. Patient has been compliant with instructions. Current medication use: no jade End: 24-Jan-2007 22:34 e effects ,compliant with dosing regimen and considered effective by patient. Patient sleeps 7 hours per night. Impact of disease: no overall impact. Nutrition: balanced diet. The medical issues the pat ient is following up for include All identified problems below ,blood sugar issues (DM) ,high blood pressure and osteoarthritis. blood pressure range : (118/72 116/78 118/78 124/72 116/73). Note for Fo llow up for chronic medical issues: bs at home perfect- ankle better but not yet perfect- improving over time- done with therapy, [ADDITIONAL REASON] Follow up for diabetes/glucose intolerance - The patient feels well with no comp laints ,has good energy level and is sleeping well. Patient has been compliant with instructions. Nutrition: balanced diet. fasting blood sugars : (102 99 89 95 101 91 102 93 91). , [ADDITIONAL REASON] Follow up, Laboratory Test Results - Date: (01-16-07). Current symptoms/reason for visit include/s Follow up visit with no current symptoms. There is a family history of cardiovascul ar disease (father) , while there is no family history of breast cancer ,cystic fibrosis ,Down's syndrome ,mental retardation or myocardial infarction before age 55. Past medical history includes diabetes mellitus ,hypertension and other (OA). Encounter Diagnosis: Diabetes, Type II, controlled (250.00), Other and unspecified hyperlipidemia (272.4), Hypertension (401.0), UNSPECIFIED ACQUIRED HYPOTHYROIDISM (244.9) [facility] Office Visit On: 27-Oct-2006 9:09 Encounter Reason: Follow up for chronic medical issues - The patient feels well with minor complaints (pain in right achilles tendon) ,has good energy level and is sleeping well. Patient has been compliant with instructi End: 27-Oct-2006 10:09 ons. Current medication use: no side effects. Patient sleeps 7 hours per night. Impact of disease: no overall impact. Nutrition: balanced diet. The medical issues the patient is following up for include All identified problems below ,blood sugar issues ,high blood pressure ,high cholesterol and other (diverticulosis). blood pressure range : (118/69-133/72) and fasting blood sugars : (89-101). Note for Follow up for chronic medical issues: she has achilles tendon issue that has caused her not to be able to be on the treadmill- has improved with not exercising and saw the chiropractor- he is giving her stretching exercises for the achilles tendon- is alot better on her own- she doesnt feel the need to do therapy at this pointEncounter Diagnosis: Diabetes, Type II, controlled (250.00), UNSPECIFIED HYPERTENSIVE KIDNEY DISEASE, WITHOUT CHRONIC KIDNEY DISEASE (403.90), Other and unspecified hyperlipidemia (272.4), partial achilles tendon tear- send to pt- she is getting better but still pretty tender - will send to pt [facility] Office Visit On: 13-Sep-2006 10:06 Encounter Reason: Well Women Exam - The patient feels well with no complaints ,has good energy level and is sleeping well. Pap smear: date of last pap: (09/06/05). Contraceptive history: The patient is not using any method End: 13-Sep-2006 10:37 of contraception at this time. Patient exercises a daily. The patient's libido is decreased. The patient reports that she performs monthly self breast exam. Calcium intake includes 1200 mg with Vit D d aily supplement. Previous evaluations: hysterectomy (still has 1/2 ovary- rt). The patient denies the use of oral contraceptives or hormone replacement therapy. Encounter Diagnosis: Well Woman Exam (V72.31) (Pap,Mammo,Routine Female) [facility] Office Visit On: 25-Jul-2006 9:41 Encounter Reason: Follow up for chronic medical issues - The patient feels well with minor complaints (sinus) ,has good energy level and is sleeping well. Patient has been compliant with instructions. Current medication End: 25-Jul-2006 10:27 use: no side effects and compliant with dosing regimen. Patient sleeps 7 hours per night. Nutrition: balanced diet ,supplemental vitamins and low salt diet. The medical issues the patient is following u p for include blood sugar issues ,high blood pressure ,high cholesterol ,hypothyroid ,osteoarthritis and other (allergic rhinitis). blood pressure range : ,fasting blood sugars : and weight :. Note for Follow up for chronic medical issues: bps are great at home - several done all in 110- 120 / 60 -70 and bs are 80 -102- shoulder pain improved but not gone, [ADDITIONAL REASON] Follow up, Laboratory Test Results - Date: (07/20/06- on face sheet.). , [ADDITIONAL REASON] Sinusitis/ - The duration of the symptoms are 4 weeks The course has been recurr ent. The sinusitis/ has no relieving factors. Associated features include The symptoms have been associated with cough ,nasal discharge/stuffy nose and sinus pain, while the symptoms have not been assoc iated with ear pain ,sore throat ,swollen lymph glands or teeth pain. No previous evaluations were reported. allergies and diabetes. Encounter Diagnosis: Diabetes, Type II, controlled (250.00), Hyperlipidemia, Unspecified (272.4), UNSPECIFIED ACQUIRED HYPOTHYROIDISM (244.9), UNSPECIFIED HYPERTENSIVE KIDNEY DISEASE, WITHOUT CHRONIC KIDNEY DISEASE (403.90), Allergic rhinitis, cause unspecified (477.9) [facility] Historical Summary On: 20-Jul-2006 13:05 [facility] End: 20-Jul-2006 13:17 Historical Summary On: 23-Mar-2006 15:59 [facility] End: 23-Mar-2006 16:02 Office Visit On: 22-Mar-2006 8:48 Encounter Reason: Follow up for chronic medical issues - The patient feels well with no complaints ,has good energy level and is sleeping well. Patient has been compliant with instructions. Current medication use: no jade End: 22-Mar-2006 9:43 e effects. Patient sleeps 7 hours per night. Nutrition: balanced diet ,supplemental vitamins and low salt diet. The medical issues the patient is following up for include blood sugar issues ,high blood pressure ,high cholesterol and hypothyroid. blood pressure range : ,fasting blood sugars : and weight :. Note for Follow up for chronic medical issues: blood sugars are 80-108, bps are 110-130/60-70, [ADDITIONAL REASON] Follow up, Laboratory Test Results - Date: (03/15/06- FLP/LIVER, in EMR.). Encounter Diagnosis: Hypertension (401.0), Other and unspecified hyperlipidemia (272.4), Diabetes, Type II, controlled (250.00), Pain in joint involving shoulder region (719.41), Allergic rhinitis, cause unspecified (477.9), UNSPECIFIED ACQUIRED HYPOTHYROIDISM (244.9) [facility] Historical Summary On: 18-Mar-2006 22:01 [facility] End: 18-Mar-2006 22:54 [employer] [place] [facility] [employer]; [employer] guarant[employer]
--- OUTSIDE RECORDS SUMMARY | 2018-09-27 09:19 | XMS RPT_ITS | Continuity of Care Document ---
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 with respect to what to eat with [...] for 0 days Refills: 0 Ordered:15-Dec-2009 Walter eWrner LPN FLONASE, 50MCG/ACT (Nasal Suspension) 2 (two) [...] {Strip} Refills: 3 Ordered:13-Jul-2017 Dequan ANG, Etta AFolga DO, Etta A Start : 13-Jul-2017 Active PROAIR HFA, 108 (90 Base)MCG/ACT (Inhalation Aerosol Solution) 2 (two) Puff(s) tid for 0 days Quantity: 1 {Inhaler} Refills: 0 Ordered:08-Nov-2016 Manda Valdez Start : 15-Nov-2014 Active Synthroid 75 MCG Oral Tablet 1 (one) Tablet daily for 0 days Quantity: 104 {Tablet} Refills: 3 Ordered:13-Jul-2017 Dequan ANG, Etta Selena DO, Etta A Start : 13-Jul-2017 Active Comments:take 2 sat and sun BACTRIM DS, 800-160MG (Oral Tablet) 1 Tablet bid for 7 days Quantity: 14 {Tablet} Refills: 0 Ordered:28-Aug-2012 Alyson Capps CNP Start : 28-Aug-2012 End : 04-Sep-2012 Inactive Budesonide 32 MCG/ACT Nasal Suspension 1 (one) Suspension Suspension 2 sprays each nostril daily for 90 days Quantity: 3 {[place]} Refills: 3 Ordered:14-Mar-2017 Leilani Ash Start : [...] Echocardiogram Complete Result: Comments: See Note; NOTES: [facility] Cardiovascular Services [address] [place] [address] Echo Complete 04/11/18 1052 MR#: [id number] Acct: [id number] Name: YOEL SCOTT Rep #: [id number] : 1940 77 From: Cyril Robles MD Attending Dr: Cyril Robles MD Status: REG CLI Ordering Dr: Cyril Robles MD Date: 04/11/18 Location: [facility] Sex: F C Admitted: Reason For Study: [...] Dicta mary: 04/11/18 1052 Date Transcribed: 04/11/181711 Maxillofacial Pathology: Signed 28-Mar-2018 Cardiology Visit Report Result: Comments: See Note; NOTES: [facility] [address] [place], [place] [address] OFFICE VISIT Date of Service: 03/28/18 MR#: [id number] Acct: [id number] Name: YOEL SCOTT Rep #: [id number] : 1940 Provider: Cyril Robles MD Age/Sex: 77/F Location: [facility] Status: Signed HPI HPI Chief Complaint: Follow-up [...] 03/28/18 @ 15:32 by Cyril Robles MD) prison current use of anticoagulant (Chronic) Atrial fibrillation [...] Pedis Pulse, Right Posterior Tibial Pulse, Left Core Stacker ior Tibial Pulse, Right Radial Pulse, Left [...] Other Medications Discontinued: Follow Up 1 Year ([facility]) Coding Level of Care Code Off vis,est,level 3 Diagnoses Hypertension I 10 Hyperlipidemia E78.5 Paroxysmal atrial fibrillation I48.0 Murmur, cardiac R01.1 Coding Level of Care Code Off vis,est,level 3 Diagnoses Hypertension I10 Hyperlipidemia E78.5 Paroxysmal atrial fibr illation I48.0 Murmur, cardiac R01.1 03/28/18 1537 <Electronically signed by Cyril Robles MD> Date Cyril Robles MD Cosigner Signatur e: Date (if applicable) CC: Etta Lopez DO 28-Mar-2018 12 Lead EKG performed by BMS Result: Comments: See Note; NOTES: [facility] [address] [place] [address] 12 Lead EKG performed by BMS 03/28/18 150 MR#: [id number] Acct: [id number] Name: YOEL SCOTT Rep #: [id number] : 1940 77 From: Cyril Robles MD Attending Dr: Cyril Robles MD Status: DEP [facility] Ordering Dr: Cyril Robles MD Date: 03/28/18 Location: [facility] Sex: F C Admitted: ORDER # : [id number] BMS/12 Lead EKG performed by BMS Sinus Bradycardia Low voltage in precordial leads. - Negative precordial -waves -Probably normal -consider anteroseptal ischemia. ABNORMAL 03/29/18 1305 & amp;#60;Electronically signed by Cyril Robles MD> Date Cyril Robles MD CC: Etta Lopez DO Date Dictated: 03/28/181505 Date Transcribed: 03/28/181505 Maxillofacial Pathology: CO Signed 28-Mar-2018 12 Lead EKG performed by BMS Result: Comments: See Note; NOTES: [facility] [address] [place] [address] 12 Lead EKG performed by [facility] 03/28/18 1506 MR#: [id number] Acct: [id number] Name: YOEL SCOTT Rep #: [id number] : 1940 77 From: Cyril Robles MD Attending Dr: Cyril Robles MD Status: DEP [facility] Ordering Dr: Cyril Robles MD Date: 03/28/18 Location: [facility] Sex: F C Admitted: ORDER # : [id number] BMS/12 Lead EKG performed by [facility] ECG Report Interpretation Sinus Bradycardia Low voltage in precordial leads. - Negative precordial T-waves - Probably normal -consid er anteroseptal ischemia. ABNORMAL Electronically signed on 06/07/2018 at 11:38 by Cyril Robles [employer] Version [id number] 06/07/18 1146 Date Cyril Robles MD CC: Etta Lopez DO Date Dictated: 03/28/181505 Date Transcribed: 03/28/18 150 Maxillofacial Pathology: CO Signed 08-Feb-2018 Carotid Duplex Ultrasound Result: Comments: See Note; NOTES: [facility] Cardiovascular Services [address] [place] [address] Carotid Duplex Ultrasound 02/06/18 0958 MR#: [id number] Acct: [id number] Name: YOEL LERMA Rep #: [id number] : 1940 77 From: Hermann Gaspar MD Attending Dr: Etta Lopez DO Status: REG CLI Ordering Dr: Etta Lopez DO Date: 02/06/18 Location: [facility] Sex: F C Admitted: [facility] n For Study: Carotid Stenosis Rt. Velocities/BP [...] left verteb ral artery. Procedure Carotid Duplex 62092. Exam performed in department. Interpretation Summary Mild (<50%) stenosis right extracranial internal carotid. Moderate (50- 69%) stenosis left extra cranial internal carotid. Flow within the vertebral arteries is antegrade bilaterally. Ordering P hysician: Etta Lopez Referring Physician: Etta Lopez Performed By: Alyssa Rodrigues, RDCS, RVT 08749 Date Hermann Gaspar MD CC: Etta Lopez DO Date Dictated: 02/06/18 0958 Date Transcribed: 02/08/18749 Maxillofacial Pathology: Signed 05-Oct-2017 SCREENING MAMM (CAD), BILAT Result: Comments: See Note; NOTES: [facility] Imaging Services [address] [place] [address] SCREENING MAMM (CAD), BILAT MR#: [id number] Acct: [id number] Name: YOEL SCOTT Rep #: [id number] : 1940 F 77 From: Elmer Sexton MD PCP: Etta Lopez DO Status: REG CLI Study: SCREENING MAMM (CAD), BILAT Date of Exam: 10/05/17 Exam# [id number] Ordering Dr: Etta Lopez DO [facility] MOGRAPHY - BILATERAL SCREENING REASON FOR [...] biopsy of a clinically susp icious abnormality. [id number] Electronically Signed: Elmer Sexton MD at 13:49 EDT Tel [phone], Service support , CC: Etta Lopez DO Maxillofacial Pathology: Signed 02-Sep-2017 Cardiology Visit Report Result: Comments: See Note; NOTES: [facility] [address] [place] [address]. 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 Fo llow Up 6 Months (REVIEW TRAINER) Coding Level of Care Code Off vis,est,level [...] by Bismark CALLES> Date [place] Siria Lilia OPERATING ROOM ASSISTANT-C Cosigner Signature: Date (if applicable) CC: Etta Lopez DO 25-Jul-2017 Knee 4 or More Views Result: Comments: See Note; NOTES: [facility] Imaging Services [address] [place] [address] Knee 4 or More Views MR#: [id number] Acct: [id number] Name: YOEL SCOTT Rep #: [id number] : 1940 F 77 From: Elmer Sexton MD PCP: Etta Lopez DO Status: REG RCR Study: Knee 4 or More Views Date of Exam: 07/25/17 Exam# [id number] Ordering Dr: Etta Lopez DO STUDY: X-RAY [...] Elmer Sexton MD at 13:40 EST Tel [phone], Vocalyticsic e support , CC: Etta Lopez DO Maxillofacial Pathology: Signed 09-Feb-2017 Carotid Duplex Ultrasound Result: Comments: See Note; NOTES: [facility] Cardiovascular Services [address] [place] [address] Carotid Duplex Ultrasound 01/31/17 1002 MR#: [id number] Acct: [id number] Name: YOEL LERMA Rep #: [id number] : 1940 76 From: Hermann Gaspar MD [...] in the left bulb. Procedure Carotid Duplex 44216. Exam performed in department. Int erpretation Summary [...] 01/31/17 1002 Date Transcrib ed: 02/09/17 0739 Maxillofacial Pathology: Signed 29-Sep-2016 Dexa Bone Density Study () Result: Comments: See Note; NOTES: [facility] Imaging Services [address] [place] [address] Verdana 4d Dexa Bone Density Study () MR#: [id number] Acct: [id number] Name: SONIALIYA SALINA Patten Rep #: [id number] : 1940 F 76 From: Elmer Sexton MD PCP: Etta Lopez DO Status: REG CLI Study: Dexa Bone Density Study () Date of Exam: 09/29/16 Exam# [id number] Ordering Dr: Leonor Lopez DO STUDY: DUAL [...] Elmer Sexton MD at 10:48 EDT Tel [phone], Service support [phone], CC: Etta Lopez DO Maxillofacial Pathology: Signed 29-Sep-2016 SCREENING MAMM (CAD), BILAT Result: Comments: See Note; NOTES: [facility] Imaging Services [address] [place] [address] Verdana 4d SCREENING MAMM (CAD), BILAT MR#: [id number] Acct: [id number] Name: ZACH SCOTT Rep #: [id number] : 1940 F 76 From: Elmer Sexton MD PCP: Etta Loepz DO Status: REG CLI Study: SCREENING MAMM (CAD), BILAT Date of Exam: 09/29/16 Exam# [id number] Ordering Dr: Claribel Lopez ra, DO MAMMOGRAPHY [...] [facility]. Approximately 10% of breast cancers are not detected by mammography. A normal mammogram should not delay biopsy of a clinically suspicious abnormality. [id number] Electronically Signed : Elmer Sexton MD at 12:22 EDT Tel [phone], Service support [phone], CC: Etta Lopez DO Maxillofacial Pathology: Signed 03-Sep-2016 Emergency Department Summary Result: Comments: See Note; NOTES: [facility] Medical Records Department [facility] [place] [address] Emergency Department Summary MR#: [id number] Acct: [id number] Name: ZACH SCOTT Rep #: [id number] : 1940 76 From: Micaela Noe MD [...] prescribed Flomax and given a prescription for Winkelman for pain at home. She is on Coumadin and limited in the pain medication she can take. She was more comfortable prior to discharge and resting comfortably in bed. She is established with Dr. Peterson and will follo w up with him next week. The patient is discharged home with family. IMPRESSION: Renal colic, left urolithiasis. MICAELA NOE MD T: NTS JOB: [id number] 09/03/16 0822 <Electronically signed by Micaela Noe MD> Date Micaela Noe MD Cosigner Signature (If Indicated): Date CC: Claribel Lopez DO Date Dictated: 08/28/162207 Date Transcribed: 08/28/162207 Maxillofacial Pathology: Signed 29-Aug-2016 Discharge Instruction Result: Comments: See Note; NOTES: [facility] Medical Records Department [address] [place] [address] Discharge Instruction 08/28/16 1713 MR#: [id number] Acct: [id number] Name: SONIAMarian MANN Rep #: [id number] : 1940 76 From: Micaela Noe MD PCP: Etta Lopez DO Status: DEP ER ED Disposition - Plan for ED Patient: Disposition: Home or Assisted Living Chief Complaint: Flank Pain Instructions: ED Stone Renal W Colic Prescriptions: Hydrocodone Bitart/Apap 5-325 [Winkelman 5/325] 1 tablet PO Q6H PRN PRN [...] your Primary Care Provider. Call [facility] ([phone]) or report to the closest Emergency Room. Call 911 if necessary. 08/29/16 0043 <Electronically signed by Micaela Noe MD> Date Micaela Noe MD Cosigner Signature (If Indicated): Date CC: Etta Lopez DO 28-Aug-2016 Abdomen/Pelvis without Cont Result: Comments: See Note; NOTES: [facility] Imaging Services [address] [place] [address] Verdana 4d Abdomen/Pelvis without Cont MR#: [id number] Acct: [id number] Name: ZACH SCOTT Rep #: [id number] : 1940 F 76 From: Monica Faye DO PCP: Etta Lopez DO Status: REG ER Study: Abdomen/Pelvis without Cont Date of Exam: 08/28/16 Exam# [id number] Ordering Dr: Micaela Noe STUDY: CT ABDOMEN [...] at 16:24 EST Tel , Service support [phone], CC: Etta Lopez DO; Micaela Noe MD Maxillofacial Pathology: Signed 28-Aug-2016 Abdomen/Pelvis without Cont Result: Comments: See Note; NOTES: [facility] Imaging Services [address] [place] [address] Verdana 4d Abdomen/Pelvis without Cont MR#: [id number] Acct: [id number] Name: ZACH SCOTT Earline Rep #: [id number] : 1940 F 76 From: Monica Faye DO PCP: Etta Lopez DO Status: DEP ER Study: Abdomen/Pelvis without Cont Date of Exam: 08/28/16 Exam# [id number] Ordering Dr: Micaela Noe ADDENDUM by Monica [...] at 18:21 EST Tel , Service support [phone], 09/06/16 1821 Date cc: Etta Lopez DO; [...] at 16:24 EST Tel , Service support [phone], CC: Etta Lopez DO; Micaela Noe MD Maxillofacial Pathology: Signed 11-Aug-2016 Echocardiogram Complete Result: Comments: See Note; NOTES: [facility] Cardiovascular Services [address] [place] [address] Echo Complete 08/11/16 1359 MR#: [id number] Acct: [id number] Name: YOEL SCOTT Rep #: [id number] : 1940 76 From: Cyril Robles MD Attending Dr: Wilberto Trevino Status: REG CLI Ordering Dr: Wilberto Trevino Date: 08/11/16 Location: 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 Procedure Carotid Duplex 68118. Exam performed in department. Interpretation Summary Mild (<50%) stenosis right extracranial internal carotid. Mild (<50%) stenosis left extracranial internal carotid. Flow within the vertebral arteries is antegrade bilaterally. Ordering Physician: Elena Henderson Referring Physician: Etta Lopez Performed By: Analia Hwang RVT 01/07/16 1125 Date Hermann Gaspar MD CC: Elena Henderson MD; Etta Lopez DO Date Dictated: 12/31/15 1101 Date Transcribed: 01/07/16 1125 Maxillofacial Pathology: Signed 06-Nov-2015 EKG (28932) Comments: see scanned document of test done to see results reviewed today with patient Result: [MEASUREMENTS ANALYSIS] Date of Test: 11/06/2015 11:27:04; Heart Rate: 54; MN Interval: 180; QRS: 102; QT Interval: 472; Corrected QT Interval (QTc): 462; P Wave [place]: 60; QRS Wave [place]: 19; T Wave [place] : 38; Blood Pressure: 142/86 [ECG DIAGNOSTIC STATEMENTS] Date of Test: 11/06/2015 11:27:04; Summary: Sinus Bradycardia - Negative precordial T-waves. WITHIN NORMAL LIMITS 29-Sep-2015 Bilat Scrn Digital AND CAD Result: Comments: See Note; NOTES: [facility] Imaging Services [address] [place] [address] Verdana 4d Bilat Scrn Digital AND CAD MR#: [id number] Acct: [id number] Name: YOEL SCOTT Rep #: [id number] : 1940 F 75 From: Elmer Sexton MD PCP: Etta Lopez DO Status: REG CLI Study: Bilat Scrn Digital AND CAD Date of Exam: 09/29/15 Exam# [id number] Pipo valladares Dr: Etta Lopez DO MAMMOGRAPHY [...] delay biopsy of a clinically suspicious abnormality. [id number] Electronically Signed: Elmer Sexton MD at 9:19 EDT Tel [phone], Doris alexandra support [phone], CC: Etta Lopez DO Maxillofacial Pathology: Signed 05-Aug-2015 Stress Report Result: Comments: See Note; NOTES: [facility] Cardiovascular Services [address] [place] [address] Verdana 4d Stress Test Regular MR#: [id number] Acct: [id number] Name: YOEL SCOTT Rep #: [id number] : 1940 75 From: Cyril Robles MD [...] noted. Cyril Robles MD T: NTS JOB: [id number] 08/05/15 1729 <Electronically signed by Cyril Robles MD> Date Cyril Robles MD CC: Cyril Robles MD; Etta Lopez DO Date Dictated: 08/04/151636 Date Transcribed: 08/04/151636 Maxillofacial Pathology: Signed 25-Sep-2014 Biljazmine Freeman Digital AND CAD Result: Comments: See Note; NOTES: [facility] Imaging Services [address] [place] [address] Breast Imaging Report MR#: [id number] Acct: [id number] Name: YOEL SCOTT Rep #: [id number] : 1940 F 74 From: Elmer Sexton MD PCP: Etta Lopez DO Status: REG CLI Study: Harriet Freeman Digital AND CAD Date of Exam: 09/25/14 Exam# [id number] Ordering Dr: Etta Lopez DO MAMMOGRAPHY - BILATERAL SCREENING REASON FOR EXAM: Female, 74 years old. Routine annual screening examination. PERTINENT HISTORY: Sister with breast cancer. TECHNIQUE: Digital examination. Medi olateral oblique (MLO) and craniocaudad (CC) views of both breasts were obtained. CAD: CAD was performed on this study. COMPARISON: Comparison is made with prior study dated 2013 and [facility] 2012. FINDINGS: Breast Composition: There are [...] Elmer Sexton MD at 12:41 EDT Tel [phone], Service support [phone], CC: Etta Lopez DO Maxillofacial Pathology: Signed 25-Sep-2014 Dexa Bone Density Study (HP) Result: Comments: See Note; NOTES: [facility] Imaging Services [address] [place] [address] Bone Density Report MR#: [id number] Acct: [id number] Name: YOEL SCOTT Rep #: [id number] : 1940 F 74 From: Elmer Sexton MD PCP: Etta Lopez DO Status: REG CLI Study: Dexa Bone Density Study (HP) Date of Exam: 09/25/14 Exam# [id number] Ordering Dr: Etta Lopez DO STUDY: DUAL [...] Elmer Sexton MD at 13:04 EDT Tel [phone], Service support [phone], CC: Etta Lopez DO Maxillofacial Pathology: Signed 06-Dec-2013 Echocardiogram Complete Result: Comments: See Note; NOTES: [facility] Cardiovascular Services [address] [place] [address] Echo Complete 12/06/13 0946 MR#: [id number] Acct: [id number] Name: OTYIN SCOTT Rep #: [id number] : 1940 73 From: Cyril Robles MD Attending Dr: Shey BARRIGA, Status: REG CLI Ordering Dr: Cyril Robles MD Date: 12/06/13 Location: [facility] Sex: F C Admitted: [facility] This was a 2D Doppler, Color Flow [...] valv e. Structurally normal valves. Ordering Physician: Cyril Robles Referring Physician: Blas D.O. Performed By: Analia Hwang RVT : Cyril Robles MD; Etta Fast DO Date Dictated: 12/06/13 0946 Date Transcribed: 12/06/13 1237 Maxillofacial Pathology: Signed 20-Aug-2013 Ankle min 3 Views Result: Comments: See Note; NOTES: [facility] Imaging Services [address] [place] [address] Radiology Report MR#: [id number] Acct: [id number] Name: YOEL SCOTT Rep #: [id number] : 1940 F 73 From: Elmer Sexton MD PCP: Status: REG CLI Study: Ankle min 3 Views Date of Exam: 08/20/13 Exam# [id number] Ordering Dr: Etta Lopez DO STUDY: X-RAY [...] M.D. at 16:03 EST , Service support [phone], CC: Etta Lopez DO Maxillofacial Pathology: Signed 20-Jul-2013 Bilat Scrn Digital & CAD Result: Comments: See Note; NOTES: [facility] Imaging Services [address] [place] [address] Breast Imaging Report MR#: [id number] Acct: [id number] Name: ZACH SCOTTA Earline Rep #: [id number] : 1940 F 73 From: Elmer Sexton MD PCP: Status: REG [facility] Exam# [id number] Ordering Dr: Etta Lopez DO MAMMOGRAPHY - [...] M.D. at 15:30 EST , Service support [phone], CC: Etta Lopez DO Maxillofacial Pathology: Signed Immunization Name Dates Details Influenza (3 years and up) on: 21-Apr-2009 Comments: Lot #:[id number] date:mount given:0.5mlRoute: IMSite given:left deltGiven by: BEAR Edmond Family History Unknown Family Member Name Dates Details Brother 1 Comments: living heart issues and digestive issues Status: Active Brother 2 Comments: living and good health Status: Active Father Comments: High Blood Pressure, [place] x 2, Smoker, age 55 - his father [place] at 40 Status: Active Mother Comments: CHF age 87 - Rheumataic fever with valve problem Status: Active Mother's Sister: Kidney Disease, Thyroid Goiter Status: Active sister - strangled in fpc by roomate- alzheimers Status: Active Sister 1 [...] kg/m2 Body Surface Area Calculated 1.81 m2 48-Xvl-956075:25 Temperature 97.3 f Comments: Method: Temporal Pulse [...] kg/m2 Body Surface Area Calculated 1.81 m2 90-Rum-700849:59 Temperature 96.4 f Comments: Method: Temporal Pulse [...] kg/m2 Body Surface Area Calculated 1.81 m2 23-Nmz-294734:15 Temperature 97.1 f Pulse 52 /min Comments: [...] Arm; Cuff Size: Large Weight 183 lb 09-Cwo-839801:00 Temperature 97.4 f Comments: Method: Oral Pulse [...] 0.00 cm Results Date Description Value Details 81-Rrw-135694:01 Protime w/INR Fingerstick Comments: [place] [address] [place] [address] INR ISTAT 1.90 (Normal) Comments: Critical Value > 3.5 PROTIME ISTAT 21.7 {SEC} (Abnormal) Range: 11.9-14.4 Comments: Reference Range 11.9 - 14.4 49-Bnf-212169:03 Protime w/INR Fingerstick Comments: [place] [address] [place] [address] INR ISTAT 3.40 (Normal) Comments: Critical Value > 3.5 PROTIME ISTAT 38.3 {SEC} (Abnormal) Range: 11.9-14.4 Comments: Reference Range 11.9 - 14.4 82-Dve-354328:55 Basic Metabolic Profile (BMP) Comments: DR ROBLES [facility] [address] [place], [place], [id number] GAP 8 (Normal) Range: 5-15 CO2 29.0 [...] A.D.A. criteria.Please note revised GLUCOSE reference range qjepnbscj21/02/2018. 22-Cuf-129630:55 CBC-Complete Blood Cnt No Diff Comments: DR ROBLES [facility] [address] [place], [place], [id number] MPV 10.1 fL (Normal) Range: 6.2-12.0 PLT [...] 4.2-5.4 WBC 8.7 K/mm3 (Normal) Range: 4.4-11.0 94-Noc-770032:55 Prothrombin Time w/INR Comments: DR ROBLES ORDERED PTTMICHAEL TERAN ORDERED [facility] [address] [place], [address] INR 1.0 (Normal) PROTIME 13.3 s (Normal) Range: 11.7-14.9 58-Sad-718731:04 Protime w/INR Fingerstick Comments: [facility] [address] [place] [address] INR ISTAT 2.70 (Normal) Comments: Critical Value > 3.5 PROTIME ISTAT 31.1 {SEC} (Abnormal) Range: 11.9-14.4 Comments: Reference Range 11.9 - 14.4 16-Eio-632707:16 METABOLIC PANEL, BASIC Comments: PATIENT WAS FASTINGPERFORMED BY: [facility] [id number] [facility] [id number]; upcomng appt ([id number]) Calcium 9.3 mg/dL (Normal) Range: 8.7-10.3 Carbon [...] 8-27 Glucose 118 mg/dL (Abnormal) Range: 65-99 62-Csf-990226:47 Protime w/INR Fingerstick Comments: [facility] [address] [place] [address] INR ISTAT 2.50 (Normal) Comments: Critical Value > 3.5 PROTIME ISTAT 29.1 {SEC} (Abnormal) Range: 11.9-14.4 Comments: Reference Range 11.9 - 14.4 10-Zsu-251701:23 LIPID PANEL (37294) Comments: PATIENT WAS FASTINGPERFORMED BY: [employer] [facility] [id number] LDL/HDL Ratio 0.7 {ratio} (Normal) Range: 0.0-3.2 Comments: LDL/HDL Ratio Men Women 1/2 Avg.Risk 1.0 1.5 Av g.Risk 3.6 3.2 2X Avg.Risk 6.2 5.0 3X Avg.Risk 8.0 6.1 LDL Cholesterol Calc 33 mg/dL (Normal) Range: 0-99 VLDL Cholesterol Drew 28 mg/dL (Normal) Range: 5-40 HDL Cholesterol 48 mg/dL (Normal) Triglycerides 140 mg/dL (Normal) Range: 0-149 Cholesterol, Total 109 mg/dL (Normal) Range: 100-199 07-Xbb-589983:23 TSH (THYROID STIMULATING Comments: PATIENT WAS FASTINGPERFORMED BY: [employer]ra [facility] [id number] HORMONE) ([id number]) TSH 1.970 {uIU/mL} (Normal) Range: 0.450-4.500 09-Kel-786420:23 MICROALBUMIN: CREATININE RATIO Comments: PATIENT WAS FASTINGPERFORMED BY: [facility] [place] [address] [id number] ([id number]) AND (21827) Alb/Creat Ratio 14.1 {mg/g_creat} (Normal) Range: 0.0-30.0 Albumin, Urine 18.3 ug/mL (Normal) Creatinine, Urine 129.4 mg/dL (Normal) 74-Upn-381767:23 METABOLIC PANEL, COMPREHENSIVE Comments: PATIENT WAS FASTINGPERFORMED BY: LabCoKessler Institute for RehabilitationEkpqwm7602 [facility] [id number] ([id number]) ALT (SGPT) 19 [iU]/L (Normal) Range: 0-32 [...] 8-27 Glucose 116 mg/dL (Abnormal) Range: 65-99 98-Dtd-400706:23 HGB A1C (75791) Comments: PATIENT WAS FASTINGPERFORMED BY: RYLIE LabCoKessler Institute for RehabilitationSaafif6706 [facility] [id number] Hemoglobin A1c 6.7 % (Abnormal) Range: 4.8-5.6 Comments: . Prediabetes: 5.7 - 6.4 Diabetes: >6.4 Glycemic control for adults with diabetes: <7.0 4-Eli-823890:22 Protime w/INR Fingerstick Comments: [facility] LaboratoryPoint of [address] [place] [address] INR ISTAT 2.90 (Normal) Comments: Critical Value > 3.5 PROTIME ISTAT 32.8 {SEC} (Abnormal) Range: 11.9-14.4 Comments: Reference Range 11.9 - 14.4 56-Bee-865270:47 Prothrombin Time w/INR Comments: [place] [address] [place], [address] INR 2.2 (Normal) PROTIME 24.8 s (Abnormal) Range: 11.7-14.9 03-Kxs-354609:10 Protime w/INR Fingerstick Comments: [facility] LaboratoryPoint [place] [address] [place] [address] INR ISTAT 3.30 (Normal) Comments: Critical Value > 3.5 PROTIME ISTAT 37.3 {SEC} (Abnormal) Range: 11.9-14.4 Comments: Reference Range 11.9 - 14.4 :57 Protime w/INR Fingerstick Comments: [facility] LaboratoryPoint [place] [address] [place] [address] INR ISTAT 2.40 (Normal) Comments: Critical Value > 3.5 PROTIME ISTAT 27.2 {SEC} (Abnormal) Range: 11.9-14.4 Comments: Reference Range 11.9 - 14.4 83-Nkv-193506:03 LIPID PANEL (66411) Comments: PATIENT WAS FASTINGPERFORMED BY: LabCoKessler Institute for RehabilitationUxploj7925 [facility] [id number] LDL/HDL Ratio 0.9 {ratio} (Normal) Range: 0.0-3.2 Comments: LDL/HDL Ratio Men Women 1/2 Avg.Risk 1.0 1.5 Av g.Risk 3.6 3.2 2X Avg.Risk 6.2 5.0 3X Avg.Risk 8.0 6.1 LDL Cholesterol Calc 44 mg/dL (Normal) Range: 0-99 VLDL Cholesterol Drew 27 mg/dL (Normal) Range: 5-40 HDL Cholesterol 47 mg/dL (Normal) Triglycerides 137 mg/dL (Normal) Range: 0-149 Cholesterol, Total 118 mg/dL (Normal) Range: 100-199 26-Khq-325125:03 CBC with auto diff (60887) Comments: PATIENT WAS FASTINGPERFORMED BY: LabCoKessler Institute for RehabilitationNawxcb1715 [facility] [id number] Immature Grans (Abs) 0.0 {x10E3/uL} (Normal) Range: [...] 3.77-5.28 WBC 9.1 {x10E3/uL} (Normal) Range: 3.4-10.8 12-Voa-082795:03 METABOLIC PANEL, COMPREHENSIVE Comments: PATIENT WAS FASTINGPERFORMED BY: LabCoKessler Institute for RehabilitationDwghdw8357 [facility] [id number]; will review at upcoming appt (92771) ALT (SGPT) 20 [iU]/L (Normal) Range: 0-32 [...] 8-27 Glucose 119 mg/dL (Abnormal) Range: 65-99 81-Qwa-531706:03 HGB A1C (51067) Comments: PATIENT WAS FASTINGPERFORMED BY: Ze-gen6370 [facility] [id number] Hemoglobin A1c 6.4 % (Abnormal) Range: 4.8-5.6 Comments: . Pre-diabetes: 5.7 - 6.4 Diabetes: >6.4 Glycemic control for adults with diabetes: <7.0 05-Whq-708365:53 URINE KRISTINA CULTURE-IDENTIFICATN Comments: PATIENT NOT FASTINGPERFORMED BY: [employer] Cigkrb7415 [facility] [id number] Information: SRC:MARK ([id number]) Result 1 MTHREE (Normal) Comments: More than 3 organisms recovered, none predominant. Please submitanother culture if clinically indicated.4,000 Colonies/mL Urine Final report (Normal) Culture,Comprehensive 14-Gnf-654829:42 Protime w/INR Fingerstick Comments: [facility] LaboratoryPoint [place] [address] [place] [address] INR ISTAT 3.30 (Normal) Comments: Critical Value > 3.5 PROTIME ISTAT 37.8 {SEC} (Abnormal) Range: 11.9-14.4 Comments: Reference Range 11.9 - 14.4 :59 Microscopic Examination Comments: PATIENT NOT FASTINGPERFORMED BY: LabCoKessler Institute for RehabilitationIjwsjq4922 [facility] [id number] Bacteria Few (Normal) Mucus Threads Present (Normal) Crystal Type Calcium Oxalate (Normal) Crystals Present (Abnormal) Cast Type Hyaline casts (Normal) Casts Present {/lpf} (Abnormal) Epithelial Cells (non renal) 0-10 {/hpf} (Normal) Range: 0 - 10 RBC 0-2 {/hpf} (Normal) Range: 0 - 2 WBC 11-30 {/hpf} (Abnormal) Range: 0 - 5 94-Bjt-694817:22 Protime w/INR Fingerstick Comments: [facility] LaboratoryKevin [place] [address] [place] [address] INR ISTAT 2.20 (Normal) Comments: Critical Value > 3.5 PROTIME ISTAT 25.9 {SEC} (Abnormal) Range: 11.9-14.4 Comments: Reference Range 11.9 - 14.4 :59 CBC W/AUTO DIFF WBC Comments: PATIENT NOT FASTINGPERFORMED BY: LabCoKessler Institute for RehabilitationQloipd6825 [facility] [id number] Information: NURSE DRAW ([id number]) Immature Grans (Abs) 0.0 {x10E3/uL} (Normal) Range: [...] 3.77-5.28 WBC 9.5 {x10E3/uL} (Normal) Range: 3.4-10.8 38-Tzs-834768:59 METABOLIC PANEL, COMPREHENSIVE Comments: PATIENT NOT FASTINGPERFORMED BY: LabCoKessler Institute for RehabilitationGmodud8085 [facility] [id number] ([id number]) ALT (SGPT) 16 [iU]/L (Normal) Range: 0-32 [...] Glucose, Serum 121 mg/dL (Abnormal) Range: 65-99 94-Jws-291885:59 MICROALBUMIN: CREATININE RATIO Comments: PATIENT NOT FASTINGPERFORMED BY: Relationship AnalyticsKessler Institute for RehabilitationLpsfkl5116 [facility] [id number] (56313) AND (17469) Microalb/Creat Ratio 14.1 {mg/g_creat} (Normal) Range: 0.0-30.0 Microalbumin, Urine 17.0 ug/mL (Normal) Creatinine, Urine 120.9 mg/dL (Normal) 11-Sgm-179255:59 URINALYSIS, W/ MICRO (48582) Comments: PATIENT NOT FASTINGPERFORMED BY: [employer] Bnbdyr3158 [facility] [id number] Microscopic Examination See below: (Normal) Comments: Microscopic was indicated and was performed. Nitrite, Urine Negative (Normal) Urobilinogen,Semi-Qn 0.2 mg/dL (Normal) Range: 0.2-1.0 Bilirubin Negative (Normal) Occult Blood Negative (Normal) Ketones Negative (Normal) Glucose Negative (Normal) Protein Negative (Normal) WBC Esterase 2+ (Abnormal) Appearance Clear (Normal) Urine-Color Yellow (Normal) pH 5.0 (Normal) Range: 5.0-7.5 Specific Medina 1.029 (Normal) Range: 1.005-1.030 79-Ytj-124813:23 INR Fingerstick Comments: [facility] LaboratoryPoint [place] [address] [place], [place] [address] INR ISTAT 2.70 (Normal) Comments: Critical Value > 3.5; ADDENDA: managed by cardio 89-Vmy-628388:23 Prothrombin Time Fingerstick Comments: [facility] LaboratoryPoint of [address] [place], [place] [address] PROTIME ISTAT 30.4 {SEC} (Abnormal) Range: 11.9-14.4 Comments: Reference Range 11.9 - 14.4 6-Ovq-527209:24 LIPASE (71899) Comments: PATIENT WAS FASTINGPERFORMED BY: LabCoKessler Institute for RehabilitationLzsuoa0048 [facility] [id number]; can review on 03/14 Lipase, Serum 53 U/L (Normal) Range: 0-59 6-Mge-072420:24 CBC with auto diff (16439) Comments: PATIENT WAS FASTINGPERFORMED BY: LabCoKessler Institute for RehabilitationQxrowa8622 [facility] [id number] Immature Grans (Abs) 0.0 {x10E3/uL} (Normal) Range: [...] {x10E3/uL} (Normal) Range: 3.4-10.8 :24 LIPID PANEL (03072) Comments: PATIENT WAS FASTINGPERFORMED BY: [employer]70 [facility] [id number] LDL/HDL Ratio 0.7 {ratio_units} (Normal) Range: 0.0-3.2 Comments: LDL/HDL Ratio Men Women 1/2 Avg.Risk 1.0 1.5 Av g.Risk 3.6 3.2 2X Avg.Risk 6.2 5.0 3X Avg.Risk 8.0 6.1 LDL Cholesterol Calc 35 mg/dL (Normal) Range: 0-99 VLDL Cholesterol Drew 28 mg/dL (Normal) Range: 5-40 HDL Cholesterol 48 mg/dL (Normal) Triglycerides 140 mg/dL (Normal) Range: 0-149 Cholesterol, Total 111 mg/dL (Normal) Range: 100-199 :24 METABOLIC PANEL, COMPREHENSIVE Comments: PATIENT WAS FASTINGPERFORMED BY: Ze-gen6370 [facility] [id number] (00123) ALT (SGPT) 15 [iU]/L (Normal) Range: 0-32 [...] Glucose, Serum 114 mg/dL (Abnormal) Range: 65-99 8-Vhq-312135:24 HGB A1C (70900) Comments: PATIENT WAS FASTINGPERFORMED BY: LabCoKessler Institute for RehabilitationXgdtcs5900 [facility] [id number] Hemoglobin A1c 6.5 % (Abnormal) Range: 4.8-5.6 Comments: . Pre-diabetes: 5.7 - 6.4 Diabetes: >6.4 Glycemic control for adults with diabetes: <7.0 7-Fkd-144512:39 HgA1C , Office (31644) HgA1C , Office 6.1 % (Normal) Range: 4.6 - 7.1 4-Unl-942921:44 INR Fingerstick Comments: [place] [address] [place] [address] INR ISTAT 2.00 (Normal) Comments: Critical Value > 3.5; ADDENDA: managed by cardio 5-Jeq-342456:44 Prothrombin Time Fingerstick Comments: [place] [address] [place] [address] PROTIME ISTAT 22.8 {SEC} (Abnormal) Range: 11.9-14.4 Comments: Reference Range 11.9 - 14.4 83-Uws-385461:15 INR Fingerstick Comments: [place] [address] [place] [address] INR ISTAT 2.40 (Normal) Comments: Critical Value > 3.5 28-Gqi-350870:15 Prothrombin Time Fingerstick Comments: [facility] LaboratoryPoint of [address] [place] [address] PROTIME ISTAT 27.3 {SEC} (Abnormal) Range: 11.9-14.4 Comments: Reference Range 11.9 - 14.4 19-Nsf-748157:13 Clostridium difficile Comments: PATIENT NOT FASTINGPERFORMED BY: [address] [id number] Information: SRC:ST Toxin A+B, EIA (82514) C difficile Toxins A+B, EIA Negative (Normal) 72-Vqb-876497:20 Lipase (91581) Comments: PATIENT NOT FASTINGPERFORMED BY: [address] [id number] Lipase, Serum 77 U/L (Abnormal) Range: 0-59 68-Lgl-081709:20 Amylase (28876) Comments: PATIENT NOT FASTINGPERFORMED BY: [address] [id number] Amylase, Serum 58 U/L (Normal) Range: 31-124 65-Xmw-875252:20 TSH (85948) Comments: PATIENT NOT FASTINGPERFORMED BY: [address] [id number] TSH 1.390 {uIU/mL} (Normal) Range: 0.450-4.500 25-Yxk-305517:20 CBC W/AUTO DIFF WBC (24367) Comments: PATIENT NOT FASTINGPERFORMED BY: [address] [id number] Immature Grans (Abs) 0.0 {x10E3/uL} (Normal) Range: [...] 3.77-5.28 WBC 8.1 {x10E3/uL} (Normal) Range: 3.4-10.8 38-Zyf-226734:20 METABOLIC PANEL, COMPREHENSIVE Comments: PATIENT NOT FASTINGPERFORMED BY: LabCoKessler Institute for RehabilitationHtpdcw3010 [facility] [id number] (08916) ALT (SGPT) 16 [iU]/L (Normal) Range: 0-32 [...] 0 days - 7 days 9 - 9 - 8 days - 30 days 8 - [...] Glucose, Serum 97 mg/dL (Normal) Range: 65-99 38-Wdu-531806:27 Urinalysis, Office (82624) UA - LEUKOCYTE ESTERASE Small (Normal) UA - NITRITE Negative (Normal) URINE UROBILINGN AGNES TIMED Normal mg/dL (Normal) UA - PROTEIN Negative mg/dL (Normal) UA - PH 6 (Abnormal) UA - BLOOD non-hemolyzed trace (Normal) UA - SPECIFIC GRAVITY 1.025 (Normal) UA - KETONES Negative mg/dL (Normal) UA - BILIRUBIN Negative (Normal) UA - GLUCOSE Negative (Normal) 22-Kml-829681:54 URINE KRISTINA CULTURE (AGNES Comments: PATIENT NOT FASTINGPERFORMED BY: [facility]As[facility] [id number] Information: SRC:MARK COL COUNT) (98767) Result 1 NG36 (Normal) Comments: No growth in 36 - 48 hours. Urine Culture,Comprehensive Final report (Normal) 5-Wwf-216209:06 Microscopic Examination Comments: PATIENT NOT FASTINGPERFORMED BY: [employer]arkblin [place] [id number] Bacteria Few (Normal) Mucus Threads Present (Normal) Cast Type Hyaline casts (Normal) Casts Present {/lpf} (Abnormal) Epithelial Cells (non renal) 0-10 {/hpf} (Normal) Range: 0 - 10 RBC 3-10 {/hpf} (Abnormal) Range: 0 - 2 WBC 11-30 {/hpf} (Abnormal) Range: 0 - 5 1-Lez-889220:06 URINALYSIS, W/ MICRO Comments: PATIENT NOT FASTINGPERFORMED BY: [facility]6370 [facility] [id number] Information: SRC: ([id number]) Microscopic Examination See below: (Normal) Comments: Microscopic was indicated and was performed. Nitrite, Urine Negative (Normal) Urobilinogen,Semi-Qn 0.2 mg/dL (Normal) Range: 0.2-1.0 Bilirubin Negative (Normal) Occult Blood Negative (Normal) Ketones Negative (Normal) Glucose Negative (Normal) Protein Negative (Normal) WBC Esterase 3+ (Abnormal) Appearance Clear (Normal) Urine-Color Yellow (Normal) pH 5.5 (Normal) Range: 5.0-7.5 Specific [place]ina 1.023 (Normal) Range: 1.005-1.030 6-Zrn-864698:06 URINE KRISTINA CULTURE (AGNES COL Comments: PATIENT NOT FASTINGPERFORMED BY: [facility]6370 [facility] [id number] COUNT) (32123) Antimicrobial MIHEAD (Normal) Comments: S = Susceptible; [...] primarily for treating urinary tract infections. (CLSI, T040-O46,2009) Result 2 ECV (Abnormal) Comments: Escherichia coli, identified by an automated biochemical system.2,000 Colonies/mL Result 1 Serratia marcescens Comments: Greater than 100,000 colony forming units per mL (Abnormal) Urine Final report Culture,Comprehensive (Abnormal) 3-Ljh-463946:27 CALCULUS CHEMICAL QUANTI Comments: PATIENT NOT FASTINGPERFORMED BY: Yo [address] [id number] (73695) Please note: SPRCS (Normal) Comments: Calculi report without photograph will follow via computer, mail,or tactical intelligence officer delivery.Physician questions regarding Calculi Analysis contact Yo at:[phone].This test was developed and its perfor mile characteristicsdetermined by Yo. It has not been cleared or approvedby the Food and Drug Administration. Nidus CORCAM (Normal) Comments: Nidus composed of Calcium oxalate monohydrate. Calcium phosphate 03 % (Normal) Ca oxalate monohydr. 97 % (Normal) Composition SPRCS (Normal) Comments: Percentage (Represents the % composition) Weight 45.0 mg (Normal) Size 5x4x2 mm (Normal) Color Brown (Normal) 3-Wac-695680:59 Metabolic Panel, Basic (46223) Comments: PATIENT NOT FASTINGPERFORMED BY: LabAds-FiKessler Institute for RehabilitationMzonnf3281 [facility] [id number] Calcium, Serum 9.5 mg/dL (Normal) Range: 8.7-10.3 [...] Glucose, Serum 127 mg/dL (Abnormal) Range: 65-99 0-Wbx-821110:59 CBC W/AUTO DIFF WBC (05627) Comments: PATIENT NOT FASTINGPERFORMED BY: [facility] Zengfq7798 [facility] [id number] Immature Grans (Abs) 0.0 {x10E3/uL} (Normal) Range: [...] 3.77-5.28 WBC 10.0 {x10E3/uL} (Normal) Range: 3.4-10.8 75-Vkb-618385:40 Basic Metabolic Profile (BMP) Comments: [facility] [address] [place], [place], [id number] GAP 11 (Normal) Range: 5-15 CO2 26.0 [...] <126 mg/dLsuggests IMPAIRED HOMEOSTASIS per A.D.A. criteria. :40 CBC W/Diff, Automated Comments: [facility] [address] [place], [place], [id number] Absolute Lymph 1.94 {X10_3/ul} (Normal) Range: 0.83-4.51 [...] 4.2-5.4 WBC 14.7 K/mm3 (Abnormal) Range: 4.4-11.0 :30 Urinalysis, Complete Comments: Order Date: 08/28/16Order Date: 08/28/16How was Urine Obtained? [facility] [address] [place], [place], [id number] MUCUS, URINE 1+ {/hpf} (Normal) BACTERIA 1+ [...] (Normal) CLARITY Cloudy (Normal) COLOR Yellow (Normal) 52-Hec-144108:55 URINE KRISTINA CULTURE-IDENTIFICATN Comments: PATIENT NOT FASTINGPERFORMED BY: LabCoKessler Institute for RehabilitationYyufov9920 [facility] [id number] Information: SRC:MARK ([id number]) Result 1 MUG (Normal) Comments: Mixed urogenital flora25,000-50,000 colony forming units per mL Urine Final report (Normal) Culture,Comprehensive 01-Ohi-320330:29 PT (Prothrobim Time) (43273) Comments: PATIENT NOT FASTINGPERFORMED BY: [facility] Yegisa3109 [facility] [id number] Prothrombin Time 28.5 {sec} (Abnormal) Range: 9.1-12.0 INR 2.8 (Abnormal) Range: 0.8-1.2 Comments: Reference interval is for non-anticoagulated patients. . Suggested INR therapeutic range for Vitamin K anta gonist therapy: Standard Dose (moderate intensity therapeutic range): 2.0 - 3.0 Higher intensity therapeutic range 2.5 - 3.5 13-Bzl-311672:44 Urinalysis, Office (52830) UA - LEUKOCYTE ESTERASE Trace (Normal) UA - NITRITE Negative (Normal) URINE UROBILINGN AGNES TIMED Normal mg/dL (Normal) UA - PROTEIN 100 mg/dL (Normal) UA - PH 6 (Abnormal) UA - BLOOD Hemolyzed Large (Normal) UA - SPECIFIC GRAVITY 1.025 (Normal) UA - KETONES Small mg/dL (Normal) UA - BILIRUBIN Small (Normal) UA - GLUCOSE Negative (Normal) 96-Xof-019543:23 INR Fingerstick Comments: [facility] LaboratoryPoint [address] [place] [address] INR ISTAT 2.80 (Normal) Comments: Critical Value > 3.5; ADDENDA: managed by cardio 86-Pwr-996514:23 Prothrombin Time Fingerstick Comments: [facility] LaboratoryPoint of [address] [place] [address] PROTIME ISTAT 32.1 {SEC} (Abnormal) Range: 11.9-14.4 Comments: Reference Range 11.9 - 14.4 3-Bat-159896:30 INR Fingerstick Comments: [facility] LaboratoryPoint of [address] [place] [address] INR ISTAT 3.30 (Normal) Comments: Critical Value > 3.5 8-Sde-332932:30 Prothrombin Time Fingerstick Comments: [facility] LaboratoryPoint of [address]dts[address] [place] [address] PROTIME ISTAT 37.8 {SEC} (Abnormal) Range: 11.9-14.4 Comments: Reference Range 11.9 - 14.4 1-Wjk-118404:17 CBC W/AUTO DIFF WBC (30865) Comments: PATIENT WAS FASTINGPERFORMED BY: [facility] Acfdts7025 [facility] [id number] Immature Grans (Abs) 0.0 {x10E3/uL} (Normal) Range: [...] 3.77-5.28 WBC 8.7 {x10E3/uL} (Normal) Range: 3.4-10.8 1-Waf-073066:17 METABOLIC PANEL, COMPREHENSIVE Comments: PATIENT WAS FASTINGPERFORMED BY: LabCoGoMango.comEjbwjm9519 [facility] [id number]; non- emergent till apt (88637) ALT (SGPT) 18 [iU]/L (Normal) Range: 0-32 [...] Glucose, Serum 110 mg/dL (Abnormal) Range: 65-99 9-Skd-698910:17 TSH (17658) Comments: PATIENT WAS FASTINGPERFORMED BY: [employer] LabCoGoMango.comQqsxwc0794 [facility] [id number] TSH 1.190 {uIU/mL} (Normal) Range: 0.450-4.500 7-Sms-410291:17 LIPID PANEL (13345) Comments: PATIENT WAS FASTINGPERFORMED BY: [facility] Egcymq1157 Aditya EspitiaUNC Health Lenoir [id number] LDL/HDL Ratio 0.7 {ratio_units} (Normal) Range: 0.0-3.2 Comments: LDL/HDL Ratio Men Women 1/2 Avg.Risk 1.0 1.5 Av g.Risk 3.6 3.2 2X Avg.Risk 6.2 5.0 3X Avg.Risk 8.0 6.1 LDL Cholesterol Calc 36 mg/dL (Normal) Range: 0-99 VLDL Cholesterol Derw 18 mg/dL (Normal) Range: 5-40 HDL Cholesterol 54 mg/dL (Normal) Triglycerides 91 mg/dL (Normal) Range: 0-149 Cholesterol, Total 108 mg/dL (Normal) Range: 100-199 2-Wzr-524521:46 INR Fingerstick Comments: [facility] [address] [place] [address] INR ISTAT 1.90 (Normal) Comments: Critical Value > 3.5; ADDENDA: cardio manages 2-Fho-366472:46 Prothrombin Time Fingerstick Comments: [address] [place] [address] PROTIME ISTAT 22.4 {SEC} (Abnormal) Range: 11.9-14.4 Comments: Reference Range 11.9 - 14.4 12-Wjy-783725:56 INR Fingerstick Comments: [address] [place] [address] INR ISTAT 2.20 (Normal) Comments: Critical Value > 3.5 :56 Prothrombin Time Fingerstick Comments: [address] [place] [address] PROTIME ISTAT 25.9 {SEC} (Abnormal) Range: 11.9-14.4 Comments: Reference Range 11.9 - 14.4 48-Miq-518219:54 INR Fingerstick Comments: [facility] LaboratoryPoint of [address] [place], [place] [address] INR ISTAT 1.80 (Normal) Comments: Critical Value > 3.5; ADDENDA: handled by cardio 24-Jey-044363:54 Prothrombin Time Fingerstick Comments: [facility] LaboratoryPoint of [address] [place] [address] PROTIME ISTAT 21.4 {SEC} (Abnormal) Range: 11.9-14.4 Comments: Reference Range 11.9 - 14.4 46-Mhe-975577:04 LIPID PANEL (49132) Comments: PATIENT WAS FASTINGPERFORMED BY: [facility]SparkUNC Health Lenoir [id number] LDL/HDL Ratio 0.9 {ratio_units} (Normal) Range: 0.0-3.2 Comments: LDL/HDL Ratio Men Women 1/2 Avg.Risk 1.0 1.5 Av g.Risk 3.6 3.2 2X Avg.Risk 6.2 5.0 3X Avg.Risk 8.0 6.1 LDL Cholesterol Calc 43 mg/dL (Normal) Range: 0-99 VLDL Cholesterol Drew 19 mg/dL (Normal) Range: 5-40 HDL Cholesterol 50 mg/dL (Normal) Triglycerides 96 mg/dL (Normal) Range: 0-149 Cholesterol, Total 112 mg/dL (Normal) Range: 100-199 07-Tqp-291408:04 CBC with auto diff (09909) Comments: PATIENT WAS FASTINGPERFORMED BY: [employer]70 BurgessHackHandsUNC Health Lenoir [id number] Immature Grans (Abs) 0.0 {x10E3/uL} (Normal) Range: [...] 3.77-5.28 WBC 7.7 {x10E3/uL} (Normal) Range: 3.4-10.8 76-Baq-697834:04 METABOLIC PANEL, COMPREHENSIVE Comments: PATIENT WAS FASTINGPERFORMED BY: LabCoKessler Institute for RehabilitationMeacfw5299 [facility] [id number] (29144) ALT (SGPT) 19 [iU]/L (Normal) Range: 0-32 [...] Glucose, Serum 104 mg/dL (Abnormal) Range: 65-99 10-Sqg-702030:04 MICROALBUMIN: CREATININE RATIO Comments: PATIENT WAS FASTINGPERFORMED BY: [facility]SparkUNC Health Lenoir [id number] (03613) AND (08336) Microalb/Creat Ratio 6.2 {mg/g_creat} (Normal) Range: 0.0-30.0 Microalbumin, Urine 4.0 ug/mL (Normal) Creatinine, Urine 64.3 mg/dL (Normal) 58-Koc-396495:04 HGB A1C (34355) Comments: PATIENT WAS FASTINGPERFORMED BY: [facility]SparkUNC Health Len[facility] [id number] Hemoglobin A1c 6.4 % (Abnormal) Range: 4.8-5.6 Comments: . Pre-diabetes: 5.7 - 6.4 Diabetes: >6.4 Glycemic control for adults with diabetes: <7.0 41-Nhd-143181:04 LOUANN (ANTINUCLEAR ANTIBODY) Comments: PATIENT WAS FASTINGPERFORMED BY: [employer] [facility] [id number] (66155) LOUANN Direct Negative (Normal) 88-Oqm-954678:04 RHEUMATOID FACTOR-QUANT (48037) Comments: PATIENT WAS FASTINGPERFORMED BY: [facility]SparkUNC Health Len[facility] [id number] RA Latex Turbid. <10.0 {IU/mL} (Normal) Range: 0.0-13.9 46-Jhy-352023:04 C-REACTIVE PROTEIN (45104) Comments: PATIENT WAS FASTINGPERFORMED BY: [employer]s RoadDublin [place] [id number] C-Reactive Protein, Quant 0.4 mg/L (Normal) Range: 0.0-4.9 72-Lpe-262491:04 SED RATE ERYTHROCYTE (21059) Comments: PATIENT WAS FASTINGPERFORMED BY: [facility] Phjufx3977 [facility] [id number] Sedimentation Rate-[facility] Islandren 11 mm/h (Normal) Range: 0-40 :23 INR Fingerstick Comments: [facility] LaboratoryPoint [place] [address] [place] [address] INR ISTAT 2.50 (Normal) Comments: Critical Value > 3.5 :23 Prothrombin Time Fingerstick Comments: [facility] [place] [address] [place] [address] PROTIME ISTAT 28.8 {SEC} (Abnormal) Range: 11.9-14.4 Comments: Reference Range 11.9 - 14.4 [id number] INR Fingerstick Comments: [facility] [place] [address] [place] [address] INR ISTAT 2.50 (Normal) Comments: Critical Value > 3.5; ADDENDA: cardio manages [id number] Prothrombin Time Fingerstick Comments: [facility] [place] [address] [place] [address] PROTIME ISTAT 28.8 {SEC} (Abnormal) Range: 11.9-14.4 Comments: Reference Range 11.9 - 14.4 92-Hok-231733:30 INR Fingerstick Comments: [facility]Point [place] [address] [place] [address] INR ISTAT 1.80 (Normal) Comments: Critical Value > 3.5; ADDENDA: cardio handles 98-Vgi-659313:30 Prothrombin Time Fingerstick Comments: [facility] [place] [address] [place] [address] PROTIME ISTAT 20.9 {SEC} (Abnormal) Range: 11.9-14.4 Comments: Reference Range 11.9 - 14.4 :08 INR Fingerstick Comments: [facility]Point [address] [place] [address] INR ISTAT 1.80 (Normal) Comments: Critical Value > 3.5; ADDENDA: cardio manages her INR's :08 Prothrombin Time Fingerstick Comments: [facility] [place] [address] [place] [address] PROTIME ISTAT 21.2 {SEC} (Abnormal) Range: 11.9-14.4 Comments: Reference Range 11.9 - 14.4 :55 CBC with auto diff Comments: PATIENT NOT FASTINGPERFORMED BY: [facility]CoKessler Institute for RehabilitationNiaqhf9680 [facility] [id number] Information: NURSE DRAW ([id number]) Immature Grans (Abs) 0.0 {x10E3/uL} (Normal) Range: [...] 3.77-5.28 WBC 8.9 {x10E3/uL} (Normal) Range: 3.4-10.8 0-Ejv-524056:55 METABOLIC PANEL, COMPREHENSIVE Comments: PATIENT NOT FASTINGPERFORMED BY: [facility] Hvhbqs6187 [facility] [id number]; non- emergent till apt (05507) ALT (SGPT) 17 [iU]/L (Normal) Range: 0-32 [...] Glucose, Serum 123 mg/dL (Abnormal) Range: 65-99 7-Yzi-643981:55 MICROALBUMIN: CREATININE RATIO Comments: PATIENT NOT FASTINGPERFORMED BY: [facility]CoK[facility] Institute for RehabilitationKezjsa8024 [facility] [id number] (67162) AND (48854) Microalb/Creat Ratio <6.1 {mg/g_creat} (Normal) Range: 0.0-30.0 Microalbumin, Urine <3.0 ug/mL (Normal) Creatinine, Urine 48.8 mg/dL (Normal) 61-Vvx-786471:25 HgA1C , Office (77125) HgA1C , Office 6.2 % (Normal) Range: 4.6 - 7.1 1-Vpg-277251:39 INR Fingerstick Comments: [address] [place] [address] INR ISTAT 2.10 (Normal) Comments: Critical Value > 3.5; ADDENDA: INR are managed by cardio :39 Prothrombin Time Fingerstick Comments: [address] [place] [place] [address] PROTIME ISTAT 24.2 {SEC} (Abnormal) Range: 11.9-14.4 Comments: Reference Range 11.9 - 14.4 :03 INR Fingerstick Comments: [place] [address] [place] [address] INR ISTAT 1.70 (Normal) Comments: Critical Value > 3.5 71-Mys-834744:03 Prothrombin Time Fingerstick Comments: [facility]Point [place] [address] [place], [place] [address] PROTIME ISTAT 19.6 {SEC} (Abnormal) Range: 11.9-14.4 Comments: Reference Range 11.9 - 14.4 57-Sdp-272787:00 INR Fingerstick Comments: [facility] [place] [address] [place], [place] [address](001) INR ISTAT 3.40 (Normal) Comments: Critical Value > 3.5; ADDENDA: cardio aware of her INR :00 Prothrombin Time Fingerstick Comments: [facility] [place] [address] [place] [address]( PROTIME ISTAT 38.5 {SEC} (Abnormal) Range: 11.9-14.4 Comments: Reference Range 11.9 - 14.4 :02 Prothrombin Time w/INR Comments: Result obtained is for confirmation testing ofFingerstick PT/INR Specimen # [id number] . 12/15/15 1108 VSICKTHIS CONFIRMATION SPECIMEN RESULT IS FROM VENOUS BLOOD.[place] [address], [address] INR 3.3 (Normal) Comments: ADDENDA: left detailed message with [facility] group nurse line to make sure was addressed by them PROTIME 32.7 s (Abnormal) Range: 11.7-14.9 82-Gqj-913346:48 INR Fingerstick Comments: [facility] [place] [address] [place] [address] INR ISTAT 3.90 (Abnormal) Comments: Critical Value > 3.5 :48 Prothrombin Time Fingerstick Comments: [facility] [place] [address] [place] [address]( PROTIME ISTAT 44.3 {SEC} (Abnormal) Range: 11.9-14.4 Comments: Reference Range 11.9 - 14.4 14-Uty-819456:42 INR Fingerstick Comments: [facility] [place] [address] [place] [address] INR ISTAT 2.50 (Normal) Comments: Critical Value > 3.5 :42 Prothrombin Time Fingerstick Comments: [place] [address] [place] [address] PROTIME ISTAT 28.9 {SEC} (Abnormal) Range: 11.9-14.4 Comments: Reference Range 11.9 - 14.4 28-Nlx-614845:26 INR Fingerstick Comments: [place] [address] [place] [address] INR ISTAT 3.00 (Normal) Comments: Critical Value > 3.5; ADDENDA: handled by cardio 23-Uqo-303480:26 Prothrombin Time Fingerstick Comments: [address] [place] [address] PROTIME ISTAT 34.4 {SEC} (Abnormal) Range: 11.9-14.4 Comments: Reference Range 11.9 - 14.4 :54 INR Fingerstick Comments: [place] [address] [place] [address] INR ISTAT 1.70 (Normal) Comments: Critical Value > 3.5; ADDENDA: handled by shey :54 Prothrombin Time Fingerstick Comments: [address] [place] [address] PROTIME ISTAT 20.0 {SEC} (Abnormal) Range: 11.9-14.4 Comments: Reference Range 11.9 - 14.4 42-Zbo-160878:39 CBC W/AUTO DIFF WBC Comments: PATIENT WAS FASTINGPERFORMED BY: [facility] Mylyxd4789 [facility] [id number] Information: [id number] CC:[id number] (82762) Immature Grans (Abs) 0.0 {x10E3/uL} (Normal) Range: [...] 3.77-5.28 WBC 8.3 {x10E3/uL} (Normal) Range: 3.4-10.8 28-Bes-680655:39 METABOLIC PANEL, COMPREHENSIVE Comments: PATIENT WAS FASTINGPERFORMED BY: [facility]CoK[facility] Institute for RehabilitationAfvrak7586 [facility] [id number] (26595) ALT (SGPT) 16 [iU]/L (Normal) Range: 0-32 [...] Glucose, Serum 100 mg/dL (Abnormal) Range: 65-99 32-Avl-015288:39 LIPID PANEL (68055) Comments: PATIENT WAS FASTINGPERFORMED BY: [employer] Group Phoebe IngenicaUNC [facility] [id number] LDL/HDL Ratio 0.6 {ratio_units} (Normal) Range: 0.0-3.2 [...] Cholesterol, Total 112 mg/dL (Normal) Range: 100-199 10-Sre-761050:39 TSH (56354) Comments: PATIENT WAS FASTINGPERFORMED BY: [facility] [id number] TSH 1.210 {uIU/mL} (Normal) Range: 0.450-4.500 22-Qhd-923508:54 HgA1C , Office (06091) HgA1C , Office 6.4 % (Normal) Range: 4.6 - 7.1 63-Gvn-555345:58 INR Fingerstick Comments: [place] [address] [place] [address] INR ISTAT 2.50 (Normal) Comments: Critical Value > 3.5 :58 Prothrombin Time Fingerstick Comments: [address] [place] [address] PROTIME ISTAT 29.2 {SEC} (Abnormal) Range: 11.9-14.4 Comments: Reference Range 11.9 - 14.4 :19 Prothrombin Time w/INR Comments: [place] [address] [place], [address] INR 2.9 (Normal) Comments: ADDENDA: handled by cardio PROTIME 30.0 s (Abnormal) Range: 11.7-14.9 :46 INR Fingerstick Comments: [place] [address] [place] [address] INR ISTAT 1.40 (Normal) Comments: Critical Value > 3.5 :46 Prothrombin Time Fingerstick Comments: [address] [place] [address] PROTIME ISTAT 16.5 {SEC} (Abnormal) Range: 11.9-14.4 Comments: Reference Range 11.9 - 14.4; ADDENDA: handled by cardio :14 INR Fingerstick Comments: [place] [address] [place] [address] INR ISTAT 3.50 (Normal) Comments: Critical Value > 3.5 4-Yag-257498:14 Prothrombin Time Fingerstick Comments: [facility] LaboratoryPoint of [address] [place], [place] [address] PROTIME ISTAT 39.1 {SEC} (Abnormal) Range: 11.9-14.4 Comments: Reference Range 11.9 - 14.4 :29 CBC W/AUTO DIFF WBC Comments: PATIENT WAS FASTINGPERFORMED BY: LabCoCrownpoint Healthcare FacilityOvhvcx2086 [facility] [id number] Information: [id number] (86670) Immature Grans (Abs) 0.0 {x10E3/uL} (Normal) Range: [...] {x10E3/uL} (Normal) Range: 3.4-10.8 :29 LIPID PANEL (02900) Comments: PATIENT WAS FASTINGPERFORMED BY: [facility] [id number] LDL/HDL Ratio 0.8 {ratio_units} (Normal) Range: 0.0-3.2 [...] 118 mg/dL (Normal) Range: 100-199 :29 TSH (03837) Comments: PATIENT WAS FASTINGPERFORMED BY: [facility] [id number] TSH 1.780 {uIU/mL} (Normal) Range: 0.450-4.500 64-Mjh-098613:29 METABOLIC PANEL, COMPREHENSIVE Comments: PATIENT WAS FASTINGPERFORMED BY: [address] [id number] (25542) ALT (SGPT) 16 [iU]/L (Normal) Range: 0-32 [...] Glucose, Serum 110 mg/dL (Abnormal) Range: 65-99 91-Kwo-878159:29 MICROALBUMIN: CREATININE RATIO Comments: PATIENT WAS FASTINGPERFORMED BY: Relationship AnalyticsKessler Institute for RehabilitationNafajj9819 [facility] [id number] (74935) AND (52203) Microalb/Creat Ratio 21.5 {mg/g_creat} (Normal) Range: 0.0-30.0 Microalbumin, Urine 29.6 ug/mL (Abnormal) Range: 0.0-17.0 Creatinine, Urine 137.4 mg/dL (Normal) Range: 15.0-278.0 54-Mxy-453733:29 Hemoglobin Glyclated (HGB A1C) Comments: PATIENT WAS FASTINGPERFORMED BY: Relationship AnalyticsKessler Institute for RehabilitationUutlzq7469 [facility] [id number] (02097) Hemoglobin A1c 6.2 % (Abnormal) Range: 4.8-5.6 Comments: . Pre-diabetes: 5.7 - 6.4 Diabetes: >6.4 Glycemic control for adults with diabetes: <7.0 90-Jid-275868:39 INR Fingerstick Comments: [facility] [address] [place], [place], [address] INR ISTAT 3.20 (Normal) Comments: Critical Value > 3.5 64-Uni-751840:39 Prothrombin Time Fingerstick Comments: [facility] [address] [place], [address] PROTIME ISTAT 36.2 {SEC} (Abnormal) Range: 11.9-14.4 Comments: Reference Range 11.9 - 14.4 14-Ndr-374375:55 Prothrombin Time w/INR Comments: Test performed at:[facility] [address] [place] [address] INR 2.0 (Normal) PROTIME 23.1 s (Abnormal) Range: 11.7-14.9 50-Syu-482011:32 Prothrombin Time w/INR Comments: Test performed at:[facility] [address] [place] [address] ; managed by shey INR 3.1 (Normal) PROTIME 31.4 s (Abnormal) Range: 11.7-14.9 9-Uwd-596667:15 INR Fingerstick Comments: Test performed at:[facility] [address] [place] [address] INR ISTAT 2.80 (Normal) Comments: Critical Value > 3.5; ADDENDA: cardio handles 3-Xgf-150399:15 Prothrombin Time Fingerstick Comments: Test performed at:[facility] [address] [place] [address] PROTIME ISTAT 31.9 {SEC} (Abnormal) Range: 11.9-14.4 Comments: Reference Range 11.9 - 14.4 28-Sol-328858:27 METABOLIC PANEL, Comments: PATIENT WAS FASTINGPERFORMED BY: LabCoKessler Institute for RehabilitationXfvqtd7925 [facility] [id number] Information: [id number] COMPREHENSIVE (53533) ALT (SGPT) 18 [iU]/L (Normal) Range: 0-32 [...] Glucose, Serum 106 mg/dL (Abnormal) Range: 65-99 65-Sqi-199861:27 LIPID PANEL (57846) Comments: PATIENT WAS FASTINGPERFORMED BY: LabCoKessler Institute for RehabilitationXkofwr0534 [facility] [id number] LDL/HDL Ratio 0.8 {ratio_units} (Normal) Range: 0.0-3.2 [...] - 169 >19 years 100 - 199 41-Lyw-837924:27 TSH (61809) Comments: PATIENT WAS FASTINGPERFORMED BY: [employer] Ijojvo1173 [facility] [id number] TSH 1.500 {uIU/mL} (Normal) Range: 0.450-4.500 01-Dmd-775282:23 Comp. Metabolic Panel Comments: PATIENT NOT FASTINGPERFORMED BY: Relationship AnalyticsKessler Institute for RehabilitationNaremx6643 [facility] [id number] Information: [id number], [id number]; will review at 12/18 appt (14) ALT [...] Glucose, Serum 112 mg/dL (Abnormal) Range: 65-99 46-Dpd-999716:23 Lipid Panel With LDL/HDL Comments: PATIENT NOT FASTINGPERFORMED BY: [employer] Jimxng3722 [facility] [id number] Ratio LDL/HDL Ratio 0.7 {ratio_units} (Normal) Range: [...] Cholesterol, Total 110 mg/dL (Normal) Range: 100-199 94-Zdq-411088:23 Microalb/Creat Ratio, Randm Ur Comments: PATIENT NOT FASTINGPERFORMED BY: [employer] Wsuftn4747 [facility] [id number] Microalb/Creat Ratio 8.3 {mg/g_creat} Range: 0.0-30.0 (Normal) Microalbumin, Urine 9.2 ug/mL (Normal) Range: 0.0-17.0 Creatinine, Urine 111.3 mg/dL (Normal) Range: 15.0-278.0 12-Dec-2014 TSH 1.580 {uIU/mL} Comments: PATIENT NOT FASTINGPERFORMED BY: Relationship AnalyticsKessler Institute for RehabilitationQqtmrn0686 [facility] [id number] 11:23 (Normal) Range: 0.450-4.500 4-Nwk-268610:07 Prothrombin Time w/INR Comments: Test performed at:[facility] [address] [place] [address] INR 2.9 (Normal) PROTIME 29.9 s (Abnormal) Range: 11.7-14.9 25-Rqm-533466:52 INR Fingerstick Comments: Test performed at:[facility] [address] [place] [address] INR ISTAT 3.10 (Normal) Comments: Critical Value > 3.5 :52 Prothrombin Time Fingerstick Comments: Test performed at:[facility] [address] [place] [address] PROTIME ISTAT 35.1 {SEC} (Abnormal) Range: 11.9-14.4 Comments: Reference Range 11.9 - 14.4 47-Irx-381632:45 Prothrombin Time w/INR Comments: Test performed at:[facility] [address] [place] [address] INR 2.1 (Normal) PROTIME 23.6 s (Abnormal) Range: 11.7-14.9 29-Qqs-465386:00 Prothrombin Time w/INR Comments: Result obtained is for confirmation testing ofFingerstick PT/INR Specimen # [id number] . 09/25/14 1207 [facility] CONFIRMATION SPECIMEN RESULT IS FROM VENOUS BLOOD.Test performed at:[facility] [address] [place] [address] INR 4.0 (Abnormal) Comments: RESULTS CALLED TO RAHAT WERNER 09/25/14 Martin Plasencia.REPORT READ BACK BY SAME.; ADDENDA: handled by cardio and they were notified. PROTIME 38.9 s (Abnormal) Range: 11.7-14.9 31-Dvt-683505:48 INR Fingerstick Comments: Test performed at:[facility] [address] [place] [address] INR ISTAT 4.30 (Abnormal) Comments: Critical Value > 3.5; ADDENDA: Dr. Robles handles and Felisa aware of results. 96-Tzw-572972:48 Prothrombin Time Fingerstick Comments: Test performed at:[facility] [address] [facility] [address] [place] [address] PROTIME ISTAT 48.2 {SEC} (Abnormal) Range: 11.9-14.4 Comments: Reference Range 11.9 - 14.4 37-Ktd-413202:02 HgA1C , Office (13806) HgA1C , Office 6.3 % (Normal) Range: 4.6 - 7.1 6-Dlg-335484:22 INR Fingerstick Comments: Test performed at:[facility] [address] [place] [address] INR ISTAT 2.60 (Normal) Comments: Critical Value > 3.5; ADDENDA: Ordered by Dorian chu at [facility] office of result 4-Tpd-839495:22 Prothrombin Time Fingerstick Comments: Test performed at:[facility] [address] [place] [address] PROTIME ISTAT 30.4 {SEC} (Abnormal) Range: 11.9-14.4 Comments: Reference Range 11.9 - 14.4 57-Kkp-209063:19 INR Fingerstick Comments: Test performed at:[facility] [address] [place] [address] INR ISTAT 3.20 (Normal) Comments: Critical Value > 3.5 :19 Prothrombin Time Fingerstick Comments: Test performed at:[facility] [address] [place] [address] PROTIME ISTAT 36.2 {SEC} (Abnormal) Range: 11.9-14.4 Comments: Reference Range 11.9 - 14.4 21-Kyo-865035:11 CBC W/AUTO DIFF WBC Comments: PATIENT WAS FASTINGPERFORMED BY: [facility] Vwubty6360 [address] [place] [id number] Information: [id number] CC:[id number] (46707) Immature Grans (Abs) 0.0 {x10E3/uL} (Normal) Range: [...] 3.77-5.28 WBC 7.9 {x10E3/uL} (Normal) Range: 3.4-10.8 65-Six-317696:11 METABOLIC PANEL, COMPREHENSIVE Comments: PATIENT WAS FASTINGPERFORMED BY: LabCoKessler Institute for RehabilitationUyftyg3350 [facility] [id number]; will review at 08/20 (51708) ALT (SGPT) 19 [iU]/L (Normal) Range: 0-32 [...] Glucose, Serum 115 mg/dL (Abnormal) Range: 65-99 79-Ldq-941130:11 LIPID PANEL (39787) Comments: PATIENT WAS FASTINGPERFORMED BY: [employer] Phoebe IngenicaUNC [facility] [id number] LDL/HDL Ratio 0.6 {ratio_units} (Normal) Range: 0.0-3.2 [...] Cholesterol, Total 114 mg/dL (Normal) Range: 100-199 85-Ocq-236300:11 TSH (47574) Comments: PATIENT WAS FASTINGPERFORMED BY: [employer]70 [facility]ShareAsheville [facility] [id number] TSH 2.220 {uIU/mL} (Normal) Range: 0.450-4.500 09-Qyg-303372:11 Vitamin D Hydroxy (44828) Comments: PATIENT WAS FASTINGPERFORMED BY: [facility] Kabmkc[address] [place] [id number] Vitamin D, 25-Hydroxy 58.5 ng/mL (Normal) Range: 30.0-100.0 Comments: Vitamin D deficiency has been defined by the Hundred ofMedicine and an Endocrine Society practice guideline as alevel of serum 25-OH vitamin D less than 20 ng/mL (1,2).The Endocrine Society went on to further define vitamin Dinsufficiency as a level between 21 and 29 ng/mL (2).1. IOM (Hundred of Medicine). 2010. Dietary reference intakes for calcium and D. [place]: The National Academies Press.2. Isidro MF, Bella FLORES, Ron GAVIN, et al. Evaluation, treatment, and prevention of vitamin D deficiency: an Endocrine Society clinical practice guideline. JCEM. 2010; 96(7):1911-30. 76-Wsw-904083:04 HgA1C , Office (22783) HgA1C , Office 6.4 % (Normal) Range: 4.6 - 7.1 6-Zbj-247215:35 IINR 2.80 (Normal) Comments: Critical Value> 3.5 9-Iuq-099422:35 IPTF 32.1 {SEC} (Abnormal) Range: 11.9-14.4 Comments: Reference Range11.9 - 14.4 8-Rqo-153307:40 PT Comments: Result obtained is for confirmation testing ofFingerstick PT/INR Specimen # [id number] . 02/08/14 1315 [id number] CONFIRMATION SPECIMEN RESULT IS FROM VENOUS BLOOD.This critical result is preliminary and n ot confirmed.Venous sample sent to main laboratory for confirmation.A call with confirmation result will follow.See specimen #:[id number][] for confirmation result.Preliminary critical result Call to/Read back by ?[].02/08/14 1310 DMAIBACH2. INR 3.2 (Normal) PTP 32.4 s (Abnormal) Range: 11.7-14.9 Comments: Please note revised PROTIME reference range rnlydaoic15/14/15. 2-Dxk-047028:32 IINR 3.60 (Abnormal) Comments: Critical Value> 3.5 :32 IPTF 40.7 {SEC} (Abnormal) Range: 11.9-14.4 Comments: Reference Range11.9 - 14.4 1-Vlr-155454:53 LIPID PANEL (87199) Comments: PATIENT WAS FASTINGPERFORMED BY: [facility] [id number] LDL/HDL Ratio 0.9 {ratio_units} (Normal) Range: 0.0-3.2 [...] MANUAL DIFF Comments: PATIENT WAS FASTINGPERFORMED BY: [facility] [id number] Information: [id number] (07574) Immature Grans (Abs) 0.0 {x10E3/uL} (Normal) Range: [...] 3.77-5.28 WBC 11.0 {x10E3/uL} (Abnormal) Range: 3.4-10.8 8-Dhy-963139:53 METABOLIC PANEL, COMPREHENSIVE Comments: PATIENT WAS FASTINGPERFORMED BY: LabCoKessler Institute for RehabilitationIflang8099 [facility] [id number] (90085) ALT (SGPT) 14 [iU]/L (Normal) Range: 0-32 [...] URINE QUANT Comments: PATIENT WAS FASTINGPERFORMED BY: Fringe CorpKessler Institute for RehabilitationYvxcow2193 [facility] [id number] (31965) Microalb/Creat Ratio 5.9 {mg/g_creat} (Normal) Range: 0.0-30.0 Microalbumin, Urine 14.4 ug/mL (Normal) Range: 0.0-17.0 Creatinine, Urine 245.9 mg/dL (Normal) Range: 15.0-278.0 :53 TSH (60664) Comments: PATIENT WAS FASTINGPERFORMED BY: Relationship AnalyticsKessler Institute for RehabilitationUxkplu9236 [facility] [id number] TSH 1.260 {uIU/mL} (Normal) Range: 0.450-4.500 :59 HgA1C , Office (77709) Comments: not fasting and was 107 Fasting this am HgA1C , Office 6.3 % (Normal) Range: 4.6 - 7.1 :58 Blood Glucose , Office (20423) Blood Glucose , Office 126 (Normal) Comments: non-fasting :4 IINR 2.90 (Normal) Comments: Critical Value> 3.5 0 :4 IPTF 32.7 {SEC} (Abnormal) Range: 11.9-14.4 0 Comments: Reference Range11.9 - 14.4 :08 METABOLIC PANEL, Comments: PATIENT WAS FASTINGPERFORMED BY: [facility]6370 [facility] [id number] Information: [id number] CC:[id number] COMPREHENSIVE (09537) ALT (SGPT) 14 [iU]/L (Normal) Range: 0-32 [...] 31 d - 5 months 15 - 6 m - 11 months 15 - [...] Glucose, Serum 98 mg/dL (Normal) Range: 65-99 34-Zwx-343600:08 LIPID PANEL (09705) Comments: PATIENT WAS FASTINGPERFORMED BY: LabCoKessler Institute for RehabilitationMcbqbm4744 [facility] [id number] LDL/HDL Ratio 0.8 {ratio_units} (Normal) Range: 0.0-3.2 LDL Cholesterol Calc 50 mg/dL (Normal) Range: 0-99 VLDL Cholesterol Drew 15 mg/dL (Normal) Range: 5-40 HDL Cholesterol 59 mg/dL (Normal) Comments: According to ATP-III Guidelines, HDL-C >59 mg/dL is considered anegative risk factor for CHD. Triglycerides 73 mg/dL (Normal) Range: 0-149 Cholesterol, Total 124 mg/dL (Normal) Range: 100-199 21-Ngg-025716:08 TSH (87959) Comments: PATIENT WAS FASTINGPERFORMED BY: [employer] Gslbuw6811 [facility] [id number] TSH 1.220 {uIU/mL} (Normal) Range: 0.450-4.500 39-Kmg-795797:26 HgA1C , Office (47817) HgA1C , Office 6.4 % (Normal) Range: 4.6 - 7.1 58-Vbc-504531:13 MICROALBUMIN: CREATININE RATIO Comments: PATIENT WAS FASTINGPERFORMED BY: [employer] Sylzxb6550 [facility] [id number] (12960) AND (13670) Microalb/Creat Ratio 5.4 {mg/g_creat} (Normal) Range: 0.0-30.0 Microalbumin, Urine 4.7 ug/mL (Normal) Range: 0.0-17.0 Creatinine, Urine 87.4 mg/dL (Normal) Range: 15.0-278.0 14-Mic-234875:13 CBC WITH MANUAL DIFF Comments: PATIENT WAS FASTINGPERFORMED BY: Relationship AnalyticsKessler Institute for RehabilitationKjriqm3510 [facility] [id number] Information: [id number] CC:[id number] (64622) Immature Grans (Abs) 0.0 {x10E3/uL} (Normal) Range: [...] 3.77-5.28 WBC 8.1 {x10E3/uL} (Normal) Range: 3.4-10.8 21-Aib-538567:13 METABOLIC PANEL, COMPREHENSIVE Comments: PATIENT WAS FASTINGPERFORMED BY: LabCoKessler Institute for RehabilitationNvqqif5408 [facility] [id number] (02578) ALT (SGPT) 13 [iU]/L (Normal) Range: 0-32 [...] Glucose, Serum 104 mg/dL (Abnormal) Range: 65-99 08-Xrx-897766:13 LIPID PANEL (26118) Comments: PATIENT WAS FASTINGPERFORMED BY: [employer]6370 [facility] [id number] LDL/HDL Ratio 0.9 {ratio_units} (Normal) Range: 0.0-3.2 LDL Cholesterol Calc 53 mg/dL (Normal) Range: 0-99 VLDL Cholesterol Drew 13 mg/dL (Normal) Range: 5-40 HDL Cholesterol 56 mg/dL (Normal) Comments: According to ATP-III Guidelines, HDL-C >59 mg/dL is considered anegative risk factor for CHD. Triglycerides 64 mg/dL (Normal) Range: 0-149 Cholesterol, Total 122 mg/dL (Normal) Range: 100-199 49-Lld-659455:13 Vitamin D Hydroxy (81652) Comments: PATIENT WAS FASTINGPERFORMED BY: [employer]6370 [facility] [id number] Vitamin D, 25-Hydroxy 72.0 ng/mL (Normal) Range: 30.0-100.0 Comments: Vitamin D deficiency has been defined by the Hundred ofMedicine and an Endocrine Society practice guideline as alevel of serum 25-OH vitamin D less than 20 ng/mL (1,2).The Endocrine Society went on to further define vitamin Dinsufficiency as a level between 21 and 29 ng/mL (2).1. IOM (Hundred of Medicine). 2010. Dietary reference intakes for calcium and D. [place]: The National Academies Press.2. Isidro MF, Bella FLORES, Ron GAVIN, et al. Evaluation, treatment, and prevention of vitamin D deficiency: an Endocrine Society clinical practice guideline. JCEM. 2010; 96(7):3961-30. 9-Bql-012715:06 HgA1C , Office (32887) HgA1C , Office 6.5 % (Normal) Range: 4.6 - 7.1 :46 CBC WITH MANUAL DIFF Comments: PATIENT WAS FASTINGPERFORMED BY: [facility]CoK[facility] Institute for RehabilitationBscvah7464 [facility] [id number] Information: [id number] (15872) Immature Grans (Abs) 0.0 {x10E3/uL} (Normal) Range: [...] 8.9 {x10E3/uL} (Normal) Range: 3.4-10.8 :46 TSH (41478) Comments: PATIENT WAS FASTINGPERFORMED BY: [facility] [id number] TSH 2.720 {uIU/mL} (Normal) Range: 0.450-4.500 :46 LIPID PANEL (60388) Comments: PATIENT WAS FASTINGPERFORMED BY: [facility] [id number] LDL/HDL Ratio 0.8 {ratio_units} (Normal) Range: 0.0-3.2 [...] PANEL, COMPREHENSIVE Comments: PATIENT WAS FASTINGPERFORMED BY: [facility] [id number] (60934) ALT (SGPT) 20 [iU]/L (Normal) Range: 0-32 [...] Glucose, Serum 96 mg/dL (Normal) Range: 65-99 02-Gbx-416487:54 HgA1C , Office (48741) HgA1C , Office 6.5 % (Normal) Range: 4.6 - 7.1 62-Ugj-743670:21 Protein Electro, Random Urine Comments: PERFORMED BY: [facility] [id number] Please note: SPRCS (Normal) Comments: Protein electrophoresis scan will follow via computer, mail, orcourier delivery. Gamma Globulin, U 14.4 % (Normal) M-Stewart, % Not Observed % (Normal) Beta Globulin, U 24.3 % (Normal) Ppwhg-6-Dhgtkchz, U 22.4 % (Normal) Pqnca-8-Swfnqdiy, U 5.9 % (Normal) Albumin, U 33.0 % (Normal) Protein,Total,Urine 10.5 mg/dL (Normal) Range: 0.0-15.0 87-Hth-120075:21 Protein Electro.,S Comments: PERFORMED BY: [employer] [place] [id number] Please note: SPRCS (Normal) Comments: Protein electrophoresis scan will follow via computer, mail, orcourier delivery. A/G Ratio 1.4 (Normal) Range: 0.7-2.0 Globulin, Total 2.7 g/dL (Normal) Range: 2.0-4.5 Gamma Globulin 0.8 g/dL (Normal) Range: 0.5-1.6 M-Stewart Not Observed g/dL (Normal) Ofxwk-3-Jwepuodj 0.7 g/dL (Normal) Range: 0.4-1.2 Beta Globulin 1.1 g/dL (Normal) Range: 0.6-1.3 Bnasb-5-Yiioysmb 0.2 g/dL (Normal) Range: 0.1-0.4 Albumin 3.7 g/dL (Normal) Range: 3.2-5.6 Written Authorization WAR (Normal) Comments: PERFORMED BY: [facility] [place] [address] [id number] 1:21 Comments: Written Authorization Received.Authorization received from ORIGINAL ORDER [id number] by Alyson Correa 04-Oct-20129:25 URINE KRISTINA CULTURE-AGNES COL Comments: post-atb; PATIENT NOT FASTINGPERFORMED BY: [facility] [id number] Information: SRC:UR [id number] COUNT ([id number]) Result 1 CNSNSS (Normal) Comments: Coagulase negative [...] S Urine Final report Culture,Comprehe (Normal) nsive 11-Mzd-323903:20 URINE KRISTINA CULTURE (AGNES Comments: PATIENT NOT FASTINGPERFORMED BY: [facility] [place] [address] [id number] Information: SRC:UR [id number] COL COUNT) (09170) Antimicrobial MIHEAD (Normal) Comments: S = Susceptible; [...] primarily for treating urinary tract infections. (CLSI, Y576-J88,2009) Urine Final report (Normal) Culture,Comprehensive :28 Microscopic Examination Comments: PATIENT NOT FASTINGPERFORMED BY: [facility] Kocpfb8041 [facility] [id number] Bacteria None seen (Normal) Mucus Threads Present (Normal) Epithelial Cells (non renal) 0-10 {/hpf} (Normal) Range: 0 - 10 RBC 0-3 {/hpf} (Normal) Range: 0 - 3 WBC 0-5 {/hpf} (Normal) Range: 0 - 5 :28 URINE KRISTINA CULTURE-IDENTIFICATN Comments: re check following ATB treatment; PATIENT NOT FASTINGPERFORMED BY: [facility] Kqpieo8033 [facility] [id number] (67647) Result 1 CNSNSS (Normal) Comments: Coagulase negative [...] S Urine Final report Culture,Comprehens (Normal) natividad 73-Aue-683105:28 URINALYSIS (94187) Comments: re check following ATB treatment; PATIENT NOT FASTINGPERFORMED BY: RYLIE [facility] Lwsuvn0557 Aditya Sosa [place] [id number] Information: [id number] Microscopic Examination See below: (Normal) Nitrite, Urine Negative (Normal) Bilirubin Negative (Normal) Urobilinogen,Semi-Qn 0.2 mg/dL (Normal) Range: 0.0-1.9 Ketones Negative (Normal) Occult Blood Negative (Normal) Glucose Negative (Normal) Protein Negative (Normal) Appearance Clear (Normal) WBC Esterase Trace (Abnormal) Urine-Color Yellow (Normal) pH 6.5 (Normal) Range: 5.0-7.5 Specific Medina 1.009 (Normal) Range: 1.005-1.030 5-Zky-638295:09 ABDOMEN/PELVIS WITHOUT CONT Radiology Report See Note [...] Sexton M.D.August 07, 2012 at 1:59:39 PM [id number] Signed GP/GP If you are the referring physician and would like to consult with theradiologist who provided this interpretation, please contact Yuly Zapien at [phone]. If this radiologist is unavaila ble, youwill be directed to another radiologist to assist. If you are a patient with a question regarding this report, pleasecontactyour referring physician directly. Professional Interpretation Provide d By: [employer], Phone , These documents contain legally protected [...] destructionofthese documents. Dictated on 08/07/12 1334 by Tierra Sexton MDscribed on 08/07/12 1406 by ITS IMPORTSign by Elmer Sexton MD on 08/07/12 1406 Sign by: Elmer Sexton MD 3-Cib-957189:46 URINE KRISTINA CULTURE-AGNES COL Comments: PATIENT NOT FASTINGPERFORMED BY: [facility] [id number] Information: SRC:UR [id number] COUNT (86600) Antimicrobial MIHEAD (Normal) Comments: S = Susceptible; [...] mL (Normal) Urine Final report Culture,Comprehensive (Normal) 5-Ozt-973146:34 Urinalysis, Office (61230) UA - BILIRUBIN Negative (Normal) UA - BLOOD Non Hemolyzed Moderate (Normal) UA - GLUCOSE Negative (Normal) UA - KETONES Moderate mg/dL (Normal) Comments: trace UA - LEUKOCYTE ESTERASE Small (Normal) UA - NITRITE Negative (Normal) UA - PH 7.0 (Normal) UA - PROTEIN Trace mg/dL (Normal) UA - SPECIFIC GRAVITY 1.020 (Normal) URINE UROBILINGN AGNES TIMED Normal mg/dL (Normal) 74-Nqm-684578:21 LIPID PANEL (88366) Comments: PERFORMED BY: [facility] [place] [id number] LDL/HDL Ratio 0.9 {ratio_units} (Normal) Range: 0.0-3.2 HDL Cholesterol 54 mg/dL (Normal) Comments: According to ATP-III Guidelines, HDL-C >59 mg/dL is considered anegative risk factor for CHD. LDL Cholesterol Calc 48 mg/dL (Normal) Range: 0-99 VLDL Cholesterol Drew 21 mg/dL (Normal) Range: 5-40 Cholesterol, Total 123 mg/dL (Normal) Range: 100-199 Triglycerides 104 mg/dL (Normal) Range: 0-149 12-Kfk-557810:21 CBC WITH MANUAL DIFF (10370) Comments: PERFORMED BY: [facility] [id number] Immature Grans (Abs) 0.0 {x10E3/uL} (Normal) Range: [...] 3.77-5.28 WBC 9.0 {x10E3/uL} (Normal) Range: 4.0-10.5 11-Jtw-995292:21 METABOLIC PANEL, COMPREHENSIVE Comments: PERFORMED BY: [facility] [id number] (51864) ALT (SGPT) 15 [iU]/L (Normal) Range: 0-32 [...] Glucose, Serum 107 mg/dL (Abnormal) Range: 65-99 06-Bpk-971202:21 MICROALBUMIN: CREATININE RATIO Comments: PERFORMED BY: [employer] Phoebe IngenicaUNC [facility] [id number] (31543) AND (38128) Microalb/Creat Ratio 3.5 {mg/g_creat} (Normal) Range: 0.0-30.0 Microalbumin, Urine 3.5 ug/mL (Normal) Range: 0.0-17.0 Creatinine, Urine 100.1 mg/dL (Normal) Range: 15.0-278.0 15-Pog-433367:21 TSH (22771) Comments: PERFORMED BY: [facility] [id number] TSH 2.440 {uIU/mL} (Normal) Range: 0.450-4.500 51-Mmo-448499:21 PARATHORMONE (32199) Comments: PERFORMED BY: [facility]6370 [facility] [id number] PTH, Intact 14 pg/mL (Abnormal) Range: 15-65 41-Daw-757377:21 PHOSPHORUS (46972) Comments: PERFORMED BY: [facility] Kcsrwb7991 [facility] [id number] Phosphorus, Serum 3.8 mg/dL (Normal) Range: 2.5-4.5 70-Sdv-054041:21 Vitamin D Hydroxy (06875) Comments: PERFORMED BY: [facility] Nxzpib5878 [facility] [id number] Vitamin D, 25-Hydroxy 87.1 ng/mL (Normal) Range: 30.0-100.0 Comments: Vitamin D deficiency has been defined by the Hundred ofMedicine and an Endocrine Society practice guideline as alevel of serum 25-OH vitamin D less than 20 ng/mL (1,2).The Endocrine Society went on to further define vitamin Dinsufficiency as a level between 21 and 29 ng/mL (2).1. IOM (Hundred of Medicine). 2010. Dietary reference intakes for calcium and D. [place]: The National Academies Press.2. Isidro MF, Bella [place], Jolene-Carlos GAVIN, et al. Evaluation, treatment, and prevention of vitamin D deficiency: an Endocrine Society clinical practice guideline. JCEM. 2010; 96(7):1911-30. 29-Rny-903517:15 HgA1C , Office (48541) HgA1C , Office 6.2 % (Normal) Range: [...] Sexton M.D.July 05, 2012 at 9:40:03 AM [id number] Signed GP/GP If you are the referri physician and would like to consult with theradiologist who provided this interpretation, please contact Yuly Zapien at [phone]. If this radiologist is unavailable, youwill be direct ed to another radiologist to assist. If you are a patient with a question regarding this report, pleasecontactyour referring physician directly. Professional Interpretation Provided By: [facility] , These documents contain legally protected and [...] destructionofthese documents. Dictated on 07/05/12 0853 by Sohan Sexton MDribed on 07/05/12 0949 by ITS IMPORTSign by Elmer Sexton MD on 07/05/12 0951 Sign by: Elmer Sexton MD 05-Jul-20128:53 DEXA BONE DENSITY STUDY (HP) Radiology Report See Note (Normal) Comments: PROCEDURE: [...] is considered osteopenic, as outlined above, according toWPemb[facility] Organi zation (WHO) criteria. Fracture risk is [...] Sexton M.D.July 05, 2012 at 9:45:08 AM [id number] Signed GP/GP If you are the referring physician and would like to consult with theradiologist who provided this interpretation, please contact Yuly Zapien at [phone]. If this radiologist is unavailable, youwill be [...] the return or destructionofthese documents. Dictated on 07/05/1202 by Darshan BARRIGA,Sevenranscribed on 07/05/1252 by ITS IMPORTSign by Darshan BARRIGA,Danny burns on 07/05/1253 Sign by: Elmer Sexton MD 64-Lio-110610:19 Lyme Disease Antibody W/ Comments: PATIENT NOT FASTINGPERFORMED BY: [facility] [id number] Information: [id number] Reflex (07742) Lyme Ab Interp.,EIA Negative (Normal) Lyme IgG/IgM Ab <0.91 {index} (Normal) Range: 0.00-0.90 Comments: Negative <0.91 Equivocal 0.91 - 1.09 Positive >1.09 Note: The CDC curren tly advises that Western blot testing be performed following all equivocal or positive EIA results. Final diagnosis should include appropriate clinical findi ngs and a positive EIA which is also positive by Western blot. 83-Tpn-514751:05 Lyme Disease Antibody W/ Comments: PATIENT NOT FASTINGPERFORMED BY: [facility] [id number] Information: [id number] Reflex (94745) Lyme Ab Interp.,EIA Negative (Normal) Lyme IgG/IgM Ab <0.91 {index} (Normal) Range: 0.00-0.90 Comments: Negative <0.91 Equivocal 0.91 - 1.09 Positive >1.09 Note: The [facility] curren tly advises that Western blot testing be performed following all equivocal or positive EIA results. Final diagnosis should include appropriate clinical findi ngs and a positive EIA which is also positive by Western blot. 20-Zku-242465:45 CBC WITH MANUAL DIFF Comments: PATIENT WAS FASTINGPERFORMED BY: [facility] [id number] Information: [id number] (31331) Immature Grans (Abs) 0.0 {x10E3/uL} (Normal) Range: [...] 3.77-5.28 WBC 8.0 {x10E3/uL} (Normal) Range: 4.0-10.5 20-Cai-249280:45 METABOLIC PANEL, COMPREHENSIVE Comments: PATIENT WAS FASTINGPERFORMED BY: [facility]CoKessler Institute for RehabilitationLrpsco7453 [facility] [id number] (21081) ALT (SGPT) 21 [iU]/L (Normal) Range: 0-32 [...] Glucose, Serum 99 mg/dL (Normal) Range: 65-99 58-Nsj-699848:45 TSH (11148) Comments: PATIENT WAS FASTINGPERFORMED BY: [facility] Rdvuym4445 [facility] [id number] TSH 1.850 {uIU/mL} (Normal) Range: 0.450-4.500 38-Gqj-178891:45 LIPID PANEL (85799) Comments: PATIENT WAS FASTINGPERFORMED BY: [facility]CoKessler Institute for RehabilitationJhtkay8426 [facility] [id number] LDL/HDL Ratio 1.2 {ratio_units} (Normal) Range: 0.0-3.2 LDL Cholesterol Calc 59 mg/dL (Normal) Range: 0-99 VLDL Cholesterol Drew 22 mg/dL (Normal) Range: 5-40 HDL Cholesterol 50 mg/dL (Normal) Comments: According to ATP-III Guidelines, HDL-C >59 mg/dL is considered anegative risk factor for CHD. Triglycerides 111 mg/dL (Normal) Range: 0-149 Cholesterol, Total 131 mg/dL (Normal) Range: 100-199 09-Bzo-316070:22 Blood Glucose , Office (06313) Blood Glucose , Office 142 (Normal) Comments: has eaten in last 2h108 fasting this am 9-Nxh-603161:16 CHEST, PA AND LATERAL Radiology Report See Note (Normal) Comments: PROCEDURE: X-RAY CHEST REASON FOR EXAM: Female, 71 years old. Cough and fever. TECHNIQUE: PA and lateral views of the chest. COMPARISON: Comparison is made with prior examination da mary April. FINDINGS: The lungs are expanded. There [...] EDTElectronically Signed GP/GP Professional Interpretation Provided By: [facility] p, , To consult with a radiologist regarding this report, please call our [id number] line @ Dictated on 11/05/11 1316 by Darshan BARRIGA,RamonriJamaransc ribed on 11/05/11 1346 by ITS IMPORTSign by Darshan BARRIGA,Elmer on 11/05/11 1347 Sign by: Darshan BARRIGA,Elmer :44 MICROALBUMIN: CREATININE RATIO Comments: PATIENT WAS FASTINGPERFORMED BY: [facility] CorpKessler Institute for RehabilitationGswfbr2157 [facility] [id number] (59415) AND (57551) Microalb/Creat Ratio 6.8 {mg/g_creat} (Normal) Range: 0.0-30.0 Microalbumin, Urine 9.0 ug/mL (Normal) Range: 0.0-17.0 Creatinine, Urine 133.1 mg/dL (Normal) Range: 15.0-278.0 :44 METABOLIC PANEL, COMPREHENSIVE Comments: PATIENT WAS FASTINGPERFORMED BY: [employer] Sdaqny7605 [facility] [id number] (90738) ALT (SGPT) 20 [iU]/L (Normal) Range: 0-40 [...] Glucose, Serum 111 mg/dL (Abnormal) Range: 65-99 26-Rrn-32816:44 CBC WITH MANUAL DIFF Comments: PATIENT WAS FASTINGPERFORMED BY: LabCoKessler Institute for RehabilitationSjybue9382 [facility] [id number] Information: [id number] (68893) Immature Grans (Abs) 0.0 {x10E3/uL} (Normal) Range: [...] {x10E3/uL} (Normal) Range: 4.0-10.5 :44 LIPID PANEL (77208) Comments: PATIENT WAS FASTINGPERFORMED BY: Relationship AnalyticsKessler Institute for RehabilitationSwmbow0264 [facility] [id number] LDL/HDL Ratio 0.8 {ratio_units} (Normal) Range: 0.0-3.2 LDL Cholesterol Calc 46 mg/dL (Normal) Range: 0-99 VLDL Cholesterol Drew 18 mg/dL (Normal) Range: 5-40 HDL Cholesterol 60 mg/dL (Normal) Comments: According to ATP-III Guidelines, HDL-C >59 mg/dL is considered anegative risk factor for CHD. Triglycerides 92 mg/dL (Normal) Range: 0-149 Cholesterol, Total 124 mg/dL (Normal) Range: 100-199 :44 TSH (87043) Comments: PATIENT WAS FASTINGPERFORMED BY: Relationship AnalyticsKessler Institute for RehabilitationNgxdpq5840 [facility] [id number] TSH 5.040 {uIU/mL} (Abnormal) Range: 0.450-4.500 :09 HgA1C , Office (85976) HgA1C , Office 6.3 % (Normal) Range: 4.6 - 7.1 84-Jff-670588:26 BILAT SCRN DIGITAL & CAD Radiology Report [...] radiologist regarding this report, please call our [id number] line @ Dictated on 06/18/11 1447 by Darshan BARRIGA,Sevenranscribed on 06/18/11 1601 by ITS IMPORTSign by Elmer Azul MD on 06/18/11 1602 Sign by: Elmer Sexton MD 43-Hjm-624574:55 CBC WITH MANUAL DIFF Comments: PATIENT WAS FASTINGPERFORMED BY: LabCoKessler Institute for RehabilitationVkrmuw2898 [facility] [id number] Information: [id number] (84473) Immature Grans (Abs) 0.0 {x10E3/uL} (Normal) Range: [...] 3.80-5.10 WBC 8.9 {x10E3/uL} (Normal) Range: 4.0-10.5 77-Pii-920538:55 METABOLIC PANEL, COMPREHENSIVE Comments: PATIENT WAS FASTINGPERFORMED BY: LabCoKessler Institute for RehabilitationPquukm9182 [facility] [id number] (29115) ALT (SGPT) 16 [iU]/L (Normal) Range: 0-40 [...] Glucose, Serum 107 mg/dL (Abnormal) Range: 65-99 21-Pec-294519:55 LIPID PANEL (10226) Comments: PATIENT WAS FASTINGPERFORMED BY: [employer] Ltyude0251 [facility] [id number] LDL/HDL Ratio 0.8 {ratio_units} (Normal) Range: 0.0-3.2 LDL Cholesterol Calc 46 mg/dL (Normal) Range: 0-99 VLDL Cholesterol Drew 15 mg/dL (Normal) Range: 5-40 HDL Cholesterol 57 mg/dL (Normal) Comments: According to ATP-III Guidelines, HDL-C >59 mg/dL is considered anegative risk factor for CHD. Triglycerides 77 mg/dL (Normal) Range: 0-149 Cholesterol, Total 118 mg/dL (Normal) Range: 100-199 :57 HgA1C , Office (16210) HgA1C , Office 6.3 % (Normal) Range: 4.6 - 7.1 :57 Blood Glucose , Office (38131) Blood Glucose , Office 88 (Normal) :31 Urinalysis, Office (35848) UA - BILIRUBIN Negative (Normal) UA - BLOOD Negative (Normal) UA - GLUCOSE Negative (Normal) UA - KETONES Negative mg/dL (Normal) UA - LEUKOCYTE ESTERASE Small (Normal) UA - NITRITE Negative (Normal) UA - PH 7.0 (Normal) UA - PROTEIN Negative mg/dL (Normal) UA - SPECIFIC GRAVITY 1.025 (Normal) URINE UROBILINGN AGNES TIMED 2 mg/dL (Normal) 20-Wnj-467218:57 URINE KRISTINA CULTURE-AGNES COL Comments: PATIENT NOT FASTINGPERFORMED BY: LabCoKessler Institute for RehabilitationQmqcxy8905 [facility] [id number] Information: SRC:UR [id number] COUNT (74324) Result 1 BETAGB (Normal) Comments: Beta hemolytic [...] per mL Urine Final report (Normal) Culture,Comprehensive 25-Kgk-937023:14 Urinalysis, Office (54832) UA - BILIRUBIN Negative (Normal) UA - BLOOD Hemolyzed Large (Normal) UA - GLUCOSE Negative (Normal) UA - KETONES Negative mg/dL (Normal) UA - LEUKOCYTE ESTERASE Small (Normal) UA - NITRITE Negative (Normal) UA - PH 6.0 (Normal) UA - PROTEIN 30 mg/dL (Normal) UA - SPECIFIC GRAVITY 1.025 (Normal) URINE UROBILINGN AGNES TIMED Normal mg/dL (Normal) 15-Wwq-830846:15 METABOLIC PANEL, Comments: PATIENT WAS FASTINGPERFORMED BY: LabCoKessler Institute for RehabilitationJmgylh4058 [facility] [id number] Information: [id number] COMPREHENSIVE (76018) ALT (SGPT) 19 [iU]/L (Normal) Range: 0-40 [...] Glucose, Serum 107 mg/dL (Abnormal) Range: 65-99 17-Apx-961671:15 MICROALBUMIN: CREATININE RATIO Comments: PATIENT WAS FASTINGPERFORMED BY: RYLIE [employer] Wsskko1500 [facility] [id number] (17274) AND (20419) Microalb/Creat Ratio 4.1 {mg/g_creat} (Normal) Range: 0.0-30.0 Creatinine, Urine 88.8 mg/dL (Normal) Range: 15.0-278.0 Microalbumin, Urine 3.6 ug/mL (Normal) Range: 0.0-17.0 55-Qsa-684496:15 TSH (78493) Comments: PATIENT WAS FASTINGPERFORMED BY: RYLIE [employer] Xkxfum8722 [facility] [id number] TSH 4.160 {uIU/mL} (Normal) Range: 0.450-4.500 57-Psb-145087:15 LIPID PANEL (03702) Comments: PATIENT WAS FASTINGPERFORMED BY: RYLIE [employer] Upfgjg5491 [facility] [id number] LDL/HDL Ratio 0.9 {ratio_units} (Normal) Range: 0.0-3.2 LDL Cholesterol Calc 44 mg/dL (Normal) Range: 0-99 HDL Cholesterol 50 mg/dL (Normal) Comments: According to ATP-III Guidelines, HDL-C >59 mg/dL is considered anegative risk factor for CHD. VLDL Cholesterol Drew 21 mg/dL (Normal) Range: 5-40 Triglycerides 103 mg/dL (Normal) Range: 0-149 Cholesterol, Total 115 mg/dL (Normal) Range: 100-199 :31 HgA1C , Office (71420) HgA1C , Office 6.5 % (Normal) Range: 4.6 - 7.1 :31 Blood Glucose , Office (76609) Blood Glucose , Office 107 (Normal) 99-Dfz-791089:15 MICROALBUMIN: CREATININE RATIO Comments: PATIENT WAS FASTINGPERFORMED BY: Relationship AnalyticsKessler Institute for RehabilitationAmjzxl6987 [facility] [id number] (25890) AND (39281) Microalb/Creat Ratio 8.0 {mg/g_creat} (Normal) Range: 0.0-30.0 Microalbumin, Urine 11.2 ug/mL (Normal) Range: 0.0-17.0 Creatinine, Urine 139.4 mg/dL (Normal) Range: 15.0-278.0 :15 CBC WITH MANUAL DIFF Comments: PATIENT WAS FASTINGPERFORMED BY: Relationship AnalyticsKessler Institute for RehabilitationXdcjzu9910 [facility] [id number] Information: [id number] (04053) Immature Grans (Abs) 0.0 {x10E3/uL} (Normal) Range: [...] 3.80-5.10 WBC 8.3 {x10E3/uL} (Normal) Range: 4.0-10.5 13-Ome-366142:15 METABOLIC PANEL, COMPREHENSIVE Comments: PATIENT WAS FASTINGPERFORMED BY: LabCoKessler Institute for RehabilitationVktekf0107 [facility] [id number]; appt 01/25/11 (81314) ALT (SGPT) 15 [iU]/L (Normal) Range: 0-40 [...] Glucose, Serum 96 mg/dL (Normal) Range: 65-99 11-Ypc-455890:15 LIPID PANEL (07871) Comments: PATIENT WAS FASTINGPERFORMED BY: [employer] [facility] [id number] LDL/HDL Ratio 1.0 {ratio_units} (Normal) Range: 0.0-3.2 LDL Cholesterol Calc 49 mg/dL (Normal) Range: 0-99 HDL Cholesterol 50 mg/dL (Normal) Comments: According to ATP-III Guidelines, HDL-C >59 mg/dL is considered anegative risk factor for CHD. VLDL Cholesterol Drew 19 mg/dL (Normal) Range: 5-40 Cholesterol, Total 118 mg/dL (Normal) Range: 100-199 Triglycerides 97 mg/dL (Normal) Range: 0-149 79-Rkp-230153:15 TSH (15207) Comments: PATIENT WAS FASTINGPERFORMED BY: [employer] [facility] [id number] TSH 4.080 {uIU/mL} (Normal) Range: 0.450-4.500 69-Dhv-29510:32 Vitamin D Hydroxy (87704) Comments: PATIENT WAS FASTINGPERFORMED BY: [employer] Bddyqz8785 [facility] [id number] Vitamin D, 25-Hydroxy 39.9 ng/mL (Normal) Range: 32.0-100.0 Comments: Recent studies consider the lower limit of 32.0 ng/mL to be athreshold for optimal health.Keith CANO. J Nutr. 2004;135(2):317-22. :32 METABOLIC PANEL, Comments: PATIENT WAS FASTINGPERFORMED BY: RYLIE LabCoKessler Institute for RehabilitationLnzxjr1950 [facility] [id number] Information: [id number]; appt 09/28/10 COMPREHENSIVE (75092) ALT (SGPT) 19 [iU]/L (Normal) Range: 0-40 [...] mg/dL (Abnormal) Range: 65-99 :32 LIPID PANEL (61474) Comments: PATIENT WAS FASTINGPERFORMED BY: LabCoKessler Institute for RehabilitationBwhsyj8129 [facility] [id number] HDL Cholesterol 50 mg/dL (Normal) Comments: According to ATP-III Guidelines, HDL-C >59 mg/dL is considered anegative risk factor for CHD. LDL Cholesterol Calc 48 mg/dL (Normal) Range: 0-99 LDL/HDL Ratio 1.0 {ratio_units} (Normal) Range: 0.0-3.2 VLDL Cholesterol Drew 25 mg/dL (Normal) Range: 5-40 Cholesterol, Total 123 mg/dL (Normal) Range: 100-199 Triglycerides 124 mg/dL (Normal) Range: 0-149 :54 HgA1C , Office (49817) HgA1C , Office 6.3 % (Normal) Range: 4.6 - 7.1 :54 Blood Glucose , Office (62948) Blood Glucose , Office 108 (Normal) :46 [...] PT/INR Specimen # [id number] . 03/30/10 1213 [facility] CONFIRMATION SPECIMEN RESULT IS FROM VENOUS BLOOD. INR 3.3 (Normal) PROTIME 34.2 s (Abnormal) Range: 9.1-11.7 81-Ksf-179650:45 INR ISTAT 3.80 (Abnormal) 60-Vqb-327119:45 PROTIME ISTAT 42.4 {SEC} (Normal) 63-Mlv-004312:20 BILAT SCRN DIGITAL & CAD Radiology Report See Note (Normal) Comments: Exam Number: [id number] MAMMOGRAPHY - BILATERAL SCREENING INDICATION:Routine annual screening [...] attaching a ResultCode to this e xam.ADDENDUM: [id number] HPBI/MDS Reported By: GABRIEL REYES M.D. 88-Hdz-004029:19 DEXA BONE DENSITY STUDY (HP) Radiology Report See Note Comments: Exam Number: [id number] CLINICAL:Patient is a 69-year-old female who is postmenopausal. EXAMINATION:DUAL ENERGY X-RAY ABSORPTIOMETRY / DEXA. TECHNIQUE:Bone mineral density of the lumbar spine and both hi (Normal) ps was measuredusing a Compute. EtagUin scannerFINDINGS:Lumbar spine g/cm2(1.257) / T-score (0.6) / [...] 02-Mar-20 PROTIME ISTAT 37.5 {SEC} 1011:55 (Normal) 41-Ahz-05184:27 CBC WITH MANUAL DIFF Comments: PATIENT WAS FASTINGPERFORMED BY: [facility]6370 [facility] [id number] Information: ADD [id number] AND DRAW FEE [id number] [id number] (50981) Immature Grans (Abs) 0.0 {x10E3/uL} (Normal) Range: [...] 3.80-5.10 WBC 7.8 {x10E3/uL} (Normal) Range: 4.0-10.5 :27 LIPID PANEL (56010) Comments: PATIENT WAS FASTINGPERFORMED BY: [employer] Phoebe Ingen[facility]UNC [facility] [id number] LDL Cholesterol Calc 48 mg/dL (Normal) Range: 0-99 LDL/HDL Ratio 1.2 {ratio_units} (Normal) Range: 0.0-3.2 VLDL Cholesterol Drew 18 mg/dL (Normal) Range: 5-40 HDL Cholesterol 39 mg/dL (Abnormal) Comments: According to ATP-III Guidelines, HDL-C >59 mg/dL is considered anegative risk factor for CHD. Triglycerides 88 mg/dL (Normal) Range: 0-149 Cholesterol, Total 105 mg/dL (Normal) Range: 100-199 :27 TSH (14977) Comments: PATIENT WAS FASTINGPERFORMED BY: [facility]UNC [facility] [id number] TSH 3.660 {uIU/mL} (Normal) Range: 0.450-4.500 :27 METABOLIC PANEL, COMPREHENSIVE Comments: PATIENT WAS FASTINGPERFORMED BY: [facility] Qyjaon8773 [facility] [id number] (31290) ALT (SGPT) 18 [iU]/L (Normal) Range: 0-40 [...] Glucose, Serum 108 mg/dL (Abnormal) Range: 65-99 89-Mch-991500:47 HgA1C , Office (14629) HgA1C , Office 6.8 % (Normal) Range: 4.6 - 7.1 34-Umx-329851:47 Blood Glucose , Office (72105) Blood Glucose , Office 107 (Normal) 2-Xif-600759:59 PRO TIME INR 2.9 (Normal) PROTIME 29.9 [...] Report See Note (Normal) Comments: Exam Number: [id number] CLINICAL:The patient is a 69-year-old female with [...] proximalring finger. Reported By: GABRIEL REYES M.D. 4-Uky-613131:36 PRO TIME INR 5.6 (Abnormal) Comments: [facility] Justin CHAY SANTIAGOEN.REPORT READ BACK BY SAME . PROTIME 57.6 s (Abnormal) Range: 9.1-11.7 5-Wmo-551546:28 PRO TIME INR 2.3 (Normal) PROTIME 23.7 s (Abnormal) Range: 9.1-11.7 38-Nul-192929:57 BEDSIDE GLU 139 mg/dL (Abnormal) Range: 70-110 Comments: Fasting Glucose result greater than or equal to 126 mg/dLsuggests DIABETES MELLITUS per A.D.A. criteria.Policy and Physicians Orders iuksdvqk34 14-Cim-517609:02 BEDSIDE GLU 113 mg/dL (Abnormal) Range: 70-110 Comments: Fasting Glucose result from 110 to <126 mg/dLsuggests IMPAIRED HOMEOSTASIS per A.D.A. criteria.Policy and Physicians Orders anwsexvb2124-Nov-200910:24 LEFT HEART CATH/COR/LV PERCUT Radiology Report See Note (Normal) Comments: Exam Number: [id number] Procedure completed. Please see MEDICAL RECORDS reports in PCI -OP - OP NOTELET - LETTER. Reported By: CYRIL ROBLES M.D. 26-Ubj-303882:26 BMP BUN/CRE 35.0 {RATIO} (Abnormal) Range: 10-20 [...] (Normal) GLU 107 mg/dL (Normal) Range: 70-110 27-Hyy-782005:26 CBC HCT 37.6 % (Normal) Range: 37-47 MCH 30.2 pg (Normal) Range: 27.0-32.0 MCHC 34.1 g/dL (Normal) Range: 32-36 MCV 88.4 fL (Normal) Range: 81-99 MPV 7.7 fL (Normal) Range: 6.5-12.0 PLT 256 K/mm3 (Normal) Range: 150-450 RDW 13.2 % (Normal) Range: 11.6-14.6 HGB 12.8 g/dL (Normal) Range: 12.0-16.0 RBC 4.25 {M/mm3} (Normal) Range: 4.2-5.4 WBC 11.4 K/mm3 (Abnormal) Range: 4.4-11.0 16-Wgj-659451:25 METABOLIC PANEL, Comments: PATIENT WAS FASTINGPERFORMED BY: LabCoKessler Institute for RehabilitationJampfg6634 [facility] [id number] Information: [id number] COMPREHENSIVE (17272) ALT (SGPT) 15 [iU]/L (Normal) Range: 0-40 [...] Glucose, Serum 105 mg/dL (Abnormal) Range: 65-99 63-Mhd-827103:25 LIPID PANEL (77560) Comments: PATIENT WAS FASTINGPERFORMED BY: [employer] [facility] [id number] LDL Cholesterol Calc 50 mg/dL (Normal) Range: 0-99 LDL/HDL Ratio 1.2 {ratio_units} (Normal) Range: 0.0-3.2 VLDL Cholesterol Drew 22 mg/dL (Normal) Range: 5-40 Cholesterol, Total 114 mg/dL (Normal) Range: 100-199 HDL Cholesterol 42 mg/dL (Normal) Comments: According to ATP-III Guidelines, HDL-C >59 mg/dL is considered anegative risk factor for CHD. Triglycerides 109 mg/dL (Normal) Range: 0-149 10-Ffy-967091:25 MICROALBUMIN: CREATININE RATIO Comments: PATIENT WAS FASTINGPERFORMED BY: [employer]70 [facility] [id number] (70321) AND (33390) Microalb/Creat Ratio 7.4 {mg/g_creat} (Normal) Range: 0.0-30.0 Microalbumin, Urine 9.9 ug/mL (Normal) Range: 0.0-17.0 Creatinine, Urine 134.6 mg/dL (Normal) Range: 15.0-278.0 80-Dyh-455359:17 HgA1C , Office (45280) HgA1C , Office 6.5 % (Normal) Range: 4.6 - 7.1 90-Crm-673866:17 Blood Glucose , Office (58234) Blood Glucose , Office 114 (Normal) 92-Aar-244335:07 TSH (57949) Comments: PATIENT WAS FASTINGPERFORMED BY: [employer] Ftwunu4507 [facility] [id number] TSH 3.630 {uIU/mL} (Normal) Range: 0.450-4.500 70-Gnv-816318:07 METABOLIC PANEL, Comments: PATIENT WAS FASTINGPERFORMED BY: LabCoKessler Institute for RehabilitationZksrvf7745 [facility] [id number] Information: [id number] COMPREHENSIVE (08065) Alkaline Phosphatase, S 47 [iU]/L (Normal) Range: [...] Glucose, Serum 121 mg/dL (Abnormal) Range: 65-99 81-Uei-190943:07 LIPID PANEL (51938) Comments: PATIENT WAS FASTINGPERFORMED BY: [email or web address] LabRipple LabsXyjmfh2278 [facility] [id number] HDL Cholesterol 55 mg/dL (Normal) Comments: According to ATP-III Guidelines, HDL-C >59 mg/dL is considered anegative risk factor for CHD. LDL Cholesterol Calc 45 mg/dL (Normal) Range: 0-99 LDL/HDL Ratio 0.8 {ratio_units} (Normal) Range: 0.0-3.2 VLDL Cholesterol Drew 17 mg/dL (Normal) Range: 5-40 Cholesterol, Total 117 mg/dL (Normal) Range: 100-199 Triglycerides 86 mg/dL (Normal) Range: 0-149 24-Bdu-611400:16 HgA1C , Office (75589) HgA1C , Office 7.1 % (Normal) Range: 4.6 - 7.1 23-Lme-777549:16 Blood Glucose , Office (79485) Blood Glucose , Office 105 (Normal) 03-Qje-77883:43 CHEST, PA AND LATERAL (MT) Radiology Report See Note (Normal) Comments: Exam Number: [id number] PA AND LATERAL CHEST No interval change is demonstrated from a previous study of November with no evidence of active pulmonary or pleural disease. Pericardial silhouette remain s in the upper limits of normal. IMPRESSIONNo evidence of active pulmonary disease. Reported By: BRADEN HOLLOWAY M.D. 37-Aor-225910:43 METABOLIC PANEL, Comments: PATIENT WAS FASTINGPERFORMED BY: [email or web address] [facility] Nmdhgm1392 [facility] [id number] Information: [id number] COMPREHENSIVE (99205) ALT (SGPT) 11 [iU]/L (Normal) Range: 0-40 [...] Glucose, Serum 98 mg/dL (Normal) Range: 65-99 90-Fpl-696112:43 LIPID PANEL (39453) Comments: PATIENT WAS FASTINGPERFORMED BY: LabCoKessler Institute for RehabilitationAowvgv6568 [facility] [id number] LDL Cholesterol Calc 49 mg/dL (Normal) Range: 0-99 LDL/HDL Ratio 1.0 {ratio_units} (Normal) Range: 0.0-3.2 Cholesterol, Total 119 mg/dL (Normal) Range: 100-199 HDL Cholesterol 50 mg/dL (Normal) Comments: According to ATP-III Guidelines, HDL-C >59 mg/dL is considered anegative risk factor for CHD. Triglycerides 99 mg/dL (Normal) Range: 0-149 VLDL Cholesterol Drew 20 mg/dL (Normal) Range: 5-40 94-Rel-544417:43 TSH (60311) Comments: PATIENT WAS FASTINGPERFORMED BY: [employer] Fkhzgo9043 [facility] [id number] TSH 3.500 {uIU/mL} (Normal) Range: 0.450-4.500 Comments: Effective July 28, 2009, TSH reference interval for11 - 19 years will be changing to: 0.450 - 4.500 uIU/mLReference interval for all other ages will NOT be affected. :49 HgA1C , Office (06455) HgA1C , Office 6.1 % (Normal) Range: 4.6 - 7.1 :49 Blood Glucose , Office (64187) Blood Glucose , Office 127 (Normal) 38-Dkb-46489:00 LIPID PANEL (01692) Comments: PATIENT WAS FASTINGPERFORMED BY: [employer]6370 [facility] [id number] Cholesterol, Total 112 mg/dL (Normal) Range: 100-199 [...] PANEL, COMPREHENSIVE Comments: PATIENT WAS FASTINGPERFORMED BY: [facility] Resourceslin6370 [facility] [id number] (44251) A/G Ratio 1.6 (Normal) Range: 1.1-2.5 Albumin, [...] Sodium, Serum 142 mmol/L (Normal) Range: 135-145 55-Civ-70244:00 CBC WITH MANUAL DIFF (97705) Comments: PATIENT WAS FASTINGClinical Information: [id number] PERFORMED BY: [facility]6370 [facility] [id number] Baso (Absolute) 0.1 {x10E3/uL} (Normal) Range: 0.0-0.2 [...] 8.6 {x10E3/uL} (Normal) Range: 4.0-10.5 :00 TSH (88006) Comments: PATIENT WAS FASTINGPERFORMED BY: [facility] [place]6041 [facility] [id number] TSH 7.360 {uIU/mL} (Abnormal) Range: 0.450-4.500 :30 HgA1C , Office (23724) HgA1C , Office 6.5 % (Normal) Range: 4.6 - 7.1 :30 Blood Glucose , Office (27853) Blood Glucose , Office 126 (Normal) :35 CBC With Differential/Platelet Comments: PATIENT WAS FASTINGPERFORMED BY: [facility] Uksghv0287 [facility] [id number] Baso (Absolute) 0.1 {x10E3/uL} (Normal) Range: 0.0-0.2 [...] Panel (14) Comments: PATIENT WAS FASTINGPERFORMED BY: [facility]6370 [facility] [id number] A/G Ratio 1.4 (Normal) Range: 1.1-2.5 Albumin, [...] Sodium, Serum 142 mmol/L (Normal) Range: 135-145 :35 Lipid Panel With LDL/HDL Comments: PATIENT WAS FASTINGPERFORMED BY: [facility] [id number] Ratio Cholesterol, Total 152 mg/dL (Normal) Range: [...] Randm Ur Comments: PATIENT WAS FASTINGPERFORMED BY: [employer] Phoebe IngenicaUNC Health [facility] [id number] Creatinine, Urine 118.6 mg/dL Range: 15.0-278.0 (Normal) Microalb/Creat Ratio 2.6 {ug/mg_creat} Range: 0.0-30.0 (Normal) Microalbumin, Urine 3.1 ug/mL (Normal) Range: 0.0-17.0 : TSH 5.690 {uIU/mL} Comments: PATIENT WAS FASTINGPERFORMED BY: [employer]6370 [facility] [id number] 35 (Abnormal) Range: 0.450-4.500 :29 TSH (42377) Comments: PATIENT NOT FASTINGClinical Information: ADD DRAW FEE [id number] ADD J 23508 PERFORMED BY: LabAds-Fi Bmguyd1736 [facility] [id number] TSH 4.407 {uIU/mL} (Normal) Range: 0.450-4.500 :04 HgA1C , Office (09310) HgA1C , Office 6.5 % (Normal) Range: 4.6 - 7.1 :04 Blood Glucose , Office (74835) Blood Glucose , Office 110 (Normal) :35 UNILAT RT DIAG DIGITAL & CAD Radiology Report See Note (Normal) Comments: Exam Number: [id number] MAMMOGRAM, UNILATERAL RIGHT DIAGNOSTIC DIGITAL AND CAD HISTORYAbnormal screening study. Full field digital images were obtained in true lateral and in mediolateral obl ique and awning craftsperson niocaudal spot compressionviews. The current study is [...] s werealso examined with computer-aided detection software ([employer] Reported By: GABRIEL REYES M.D. 12-Aug-20089:22 BILAT [facility] DIGITAL & CAD Radiology Report See Note (Normal) Comments: Exam Number: [id number] MAMMOGRAM, BILATERAL SCREENING DIGITAL AND CAD HISTORYRoutine [...] mammograms werealso examined with computer-aided detection software ([employer] Reported By: GABRIEL REYES M.D. 92-Ovp-236015:50 LIPID PANEL (50740) Comments: PATIENT WAS FASTINGPERFORMED BY: LabCoKessler Institute for RehabilitationNdykav4681 [facility] [id number] Cholesterol, Total 134 mg/dL (Normal) Range: 100-199 HDL Cholesterol 46 mg/dL (Normal) Comments: According to ATP-III Guidelines, HDL-C >59 mg/dL is considered anegative risk factor for CHD. LDL Cholesterol Calc 70 mg/dL (Normal) Range: 0-99 LDL/HDL Ratio 1.5 {ratio_units} (Normal) Range: 0.0-3.2 Triglycerides 92 mg/dL (Normal) Range: 0-149 VLDL Cholesterol Drew 18 mg/dL (Normal) Range: 5-40 51-Mtq-631779:50 MICROALBUMIN: CREATININE RATIO Comments: PATIENT WAS FASTINGPERFORMED BY: [facility]6370 [facility] [id number] (21176) AND (68572) Creatinine, Urine 107.1 mg/dL (Normal) Range: 15.0-278.0 Microalb/Creat Ratio 5.6 {ug/mg_creat} (Normal) Range: 0.0-30.0 Microalbum.,U,Random 6.0 ug/mL (Normal) Range: 0.0-17.0 61-Pna-290101:50 TSH (01272) Comments: PATIENT WAS FASTINGPERFORMED BY: [place] [id number] [facility] [id number] TSH 4.641 {uIU/mL} (Abnormal) Range: 0.450-4.500 52-Wsj-360375:50 METABOLIC PANEL, COMPREHENSIVE Comments: PATIENT WAS FASTINGClinical Information: ADD DRAW FEE [id number] ADD J 55294 PERFORMED BY: [address] [id number] (43914) A/G Ratio 1.3 (Normal) Range: 1.1-2.5 Albumin, [...] Serum 115 mg/dL (Abnormal) Range: 65-99 If -South African >59 mL/min/1.73 Comments: Note: Persistent reduction for [...] Sodium, Serum 143 mmol/L (Normal) Range: 135-145 40-Hiu-358288:19 HgA1C , Office (00463) HgA1C , Office 6.0 % (Normal) Range: 4.6 - 7.1 23-Mia-184398:19 Blood Glucose , Office (70891) Blood Glucose , Office 100 (Normal) 87-Egt-634482:10 LIPID CHOL 125 mg/dL (Normal) Comments: <200 [...] (Normal) Range: 6.4-8.2 :32 HgA1C , Office (25768) HgA1C , Office 6.1 % (Normal) Range: 4.6 - 7.1 :32 Blood Glucose , Office (40671) Blood Glucose , Office 102 (Normal) :39 CBC With Differential/Platelet Comments: PATIENT WAS FASTINGPERFORMED BY: LabCoKessler Institute for RehabilitationLhudbb2031 [facility] [id number] Baso (Absolute) 0.1 {x10E3/uL} (Normal) Range: 0.0-0.2 [...] 11.7-15.0 WBC 7.7 {x10E3/uL} (Normal) Range: 4.0-10.5 :39 Comp. Metabolic Panel (14) Comments: PATIENT WAS FASTINGPERFORMED BY: [facility] Khnpbc3548 [facility] [id number] A/G Ratio 1.3 (Normal) Range: 1.1-2.5 Albumin, [...] Serum 104 mg/dL (Abnormal) Range: 65-99 If -South African >60 mL/min/1.73 Range: 60-128 (Normal) Comments: Note: [...] With LDL/HDL Comments: PATIENT WAS FASTINGPERFORMED BY: [employer]6370 [facility] [id number] Ratio Cholesterol, Total 164 mg/dL (Normal) Range: [...] 3.372 {uIU/mL} Comments: PATIENT WAS FASTINGPERFORMED BY: Relationship AnalyticsKessler Institute for RehabilitationExtjdb7102 [facility] [id number] :39 (Normal) Range: 0.450-4.500 Comments: Please note reference interval change :55 CBC WITH MANUAL DIFF (39020) Comments: PATIENT WAS FASTINGClinical Information: ADD DRAW FEE [id number] ADD J 23493 PERFORMED BY: Relationship AnalyticsChristopher [place] 4954870 [facility] [id number] Baso (Absolute) 0.1 {x10E3/uL} (Normal) Range: 0.0-0.2 [...] {x10E3/uL} (Normal) Range: 4.0-10.5 :55 LIPID PANEL (29209) Comments: PATIENT WAS FASTINGPERFORMED BY: [employer] Waspgk5794 [facility] [id number] Cholesterol, Total 145 mg/dL (Normal) Range: 100-199 HDL Cholesterol 49 mg/dL (Normal) Range: 40-59 LDL Cholesterol Calc 80 mg/dL (Normal) Range: 0-99 LDL/HDL Ratio 1.6 {ratio_units} (Normal) Range: 0.0-3.2 Triglycerides 78 mg/dL (Normal) Range: 0-149 VLDL Cholesterol Drew 16 mg/dL (Normal) Range: 5-40 :55 METABOLIC PANEL, COMPREHENSIVE Comments: PATIENT WAS FASTINGPERFORMED BY: [employer] Qztmhs3658 [facility] [id number] (84083) A/G Ratio 1.4 (Normal) Range: 1.1-2.5 Albumin, [...] Serum 101 mg/dL (Abnormal) Range: 65-99 If -South African >60 mL/min (Normal) Range: 60-128 Comments: Note: [...] 141 mmol/L (Normal) Range: 135-145 :55 TSH (63678) Comments: PATIENT WAS FASTINGPERFORMED BY: [facility]6370 [facility] [id number] TSH 3.447 {uIU/mL} (Normal) Range: 0.350-5.500 Comments: Adult TSH concentrations below 5.5 uIU/mL do not rule out the presence of subclinical hypothyroidism. :31 HgA1C , Office (38563) HgA1C , Office 5.9 % (Normal) Range: 4.6 - 7.1 :31 Blood Glucose , Office (59456) Blood Glucose , Office 100 (Normal) :40 DEXA BONE DENSITY STUDY () Radiology Report See Note (Normal) Comments: Exam Number: [id number] BONE DENSITOMETRY HISTORYPostmenopausal. TECHNIQUE Bone densitometry of the lumbar spine and left hip was performed. Thebest criteria for evaluation of osteoporosis is the T- value, whichrepresents the comparison of the patient's bone mass to an expectedpeak bone mass. For most patients, the mean T-value of L1 through L4is used to evaluate the lumbar spine. Based on the [place] WorldHealth Organization classifications, the hip is evaluated [...] than in 2001 and 3.3% less than ye8834. The T-value of the left femoral neck is -1 which is low normal.The T-value of the total left hip is 0.4 which is normal. Bonemineral density of the total left hip is measured at 3.6% less than ln1344 and 1.8% more than in 2006. IMPRESSIONBone densitometry of the lumbar spine and left hip are within normallimits. Reported By: GABRIEL REYES M.D. 58-Sbc-963145:19 LIPID CHOL 126 mg/dL (Normal) Comments: <200 [...] mg/dL VLDL 12 mg/dL (Normal) Range: 5-40 09-Zae-783348:19 LIVER ALB 3.5 g/dL (Normal) Range: 3.4-5.0 ALK P 53 U/L (Normal) Range: 50-136 ALT 32 [iU]/L (Normal) Range: 30-65 AST 22 U/L (Normal) Range: 15-37 D BILI 0.16 mg/dL (Normal) Range: 0.00-0.30 T BILI 0.77 mg/dL (Normal) Range: 0.00-1.00 T PROT 7.1 g/dL (Normal) Range: 6.4-8.2 56-Wzj-593660:19 MICROALBUMIN,UR 16.6 mg/L (Normal) 01-Ziu-242141:19 TSH 2.93 {uIU/mL} (Normal) Range: 0.34-4.82 74-Irs-632213:47 BILAT SCRN DIGITAL & CAD Radiology Report See Note (Normal) Comments: Exam Number: [id number] MAMMOGRAM, BILATERAL SCREENING DIGITAL AND CAD HISTORYRoutine [...] examined with computer-aided detection software (Mary chandra, [employer] Reported By: GABRIEL REYES M.D. 99-Nyz-182759:07 HgA1C , Office (66006) HgA1C , Office 5.9 % (Normal) Range: 4.6 - 7.1 31-Brl-625884:07 Blood Glucose , Office (96997) Blood Glucose , Office 123 (Normal) 37-Glw-20112:55 COMP METABOLIC A/G 0.9 {RATIO} (Normal) Range: [...] (Normal) Range: 5-40 :33 HgA1C , Office (79192) Comments: ABn signed HgA1C , Office 5.9 % (Normal) Range: 4.6 - 7.1 :33 Blood Glucose , Office (87545) Blood Glucose , Office 91 (Normal) Comments: [...] mg/dL VLDL 18 mg/dL (Normal) Range: 5-40 72-Qnz-49941:45 LIVER ALB 3.3 g/dL (Abnormal) Range: 3.4-5.0 ALK P 53 U/L (Normal) Range: 50-136 ALT 33 [iU]/L (Normal) Range: 30-65 AST 24 U/L (Normal) Range: 15-37 D BILI 0.14 mg/dL (Normal) Range: 0.00-0.30 T BILI 0.80 mg/dL (Normal) Range: 0.00-1.00 T PROT 6.8 g/dL (Normal) Range: 6.4-8.2 26-Ouw-379562:34 DEXA BONE DENSITY STUDY (HP) Radiology Report See Note (Normal) Comments: Exam Number: [id number] BONE DENSITOMETRY HISTORYPostmenopausal. Bone densitometry of the [...] measured at 3.8% le ss than in 2002. T-value of the left femoral neck is -1.1 which is in the range of osteopenia. The T-value of thetotal left hip is 0.4 which is normal. Bone mineral density ismeasured at 8.6% less th an in 2002. IMPRESSION1. Bone densitometry of the lumbar spine and total left hip arewithin the normal range. Reported By: GABRIEL REYES M.D. 25-Xfc-99656:14 Blood Glucose , Office (39484) Blood Glucose , Office 137 (Normal) 33-Sav-949503:00 HgA1C , Office (74238) HgA1C , Office 5.8 % (Normal) Range: 4.6 - 7.1 65-Dbs-956441:00 Blood Glucose , Office (05582) Blood Glucose , Office 98 (Normal) :28 [...] (Normal) Range: 0.34-4.82 :14 HgA1C , Office (63052) HgA1C , Office 5.7 % (Normal) Range: 4.6 - 7.1 :14 Blood Glucose , Office (46231) Blood Glucose , Office 132 (Normal) Plan [...] : Follow up in 2 weeks with [facility] for repeat UA Indication: Hematuria, unspecified [...] 4 MONTHS Indication: Acquired hypothyroidism Planned Observations METABOLIC PANEL, COMPREHENSIVE (43692)Indication: Diabetes mellitus type 2, controlled On: 85-Cho-429423:22 Request CBC & PLATELETS (AUTO) (93838)Indication: Diabetes mellitus type 2, controlled On: 83-Ngl-529145:22 Request CBC W/AUTO DIFF WBC (37157)Indication: Hypertensive kidney disease with chronic kidney disease, stage 1 through stage 4 or unspecified chronic kidney disease On: 60-Fyu-458363:29 Request METABOLIC PANEL, COMPREHENSIVE (02074)Indication: Hypertensive kidney disease with chronic kidney disease, stage 1 through stage 4 or unspecified chronic kidney disease On: :29 Request CBC W/AUTO DIFF WBC (16350)Indication: Hypertensive kidney disease with chronic kidney disease, stage 1 through stage 4 or unspecified chronic kidney disease On: 6-Hum-460955:03 Request URINE KRISTINA CULTURE-IDENTIFICATN (11589)Indication: UTI (urinary tract infection), uncomplicated On: :07 Request Comments: recheck after antibiotic URINALYSIS (12336)Indication: UTI (urinary tract infection), uncomplicated On: 09-Sep-20169:07 Request Comments: recheck after antibiotic HgA1C , Office (05402)Indication: Diabetes mellitus type 2, controlled On: 55-Wxi-207258:23 Request MICROALBUMIN: CREATININE RATIO (09030) AND (33961)Indication: Diabetes mellitus type 2, controlled On: :30 Request METABOLIC PANEL, COMPREHENSIVE (74897)Indication: Diabetes mellitus type 2, controlled On: :30 Request LIPID PANEL (45104)Indication: Other hyperlipidemia On: :29 Request TSH (86432)Indication: Acquired hypothyroidism On: :29 Request Urinalysis, Office (02828)Indication: UTI (urinary tract infection), uncomplicated On: 19-Eem-328645:04 Request Comments: post-atb UPEP (55427)Indication: Osteopenia On: 32-Paa-152709:41 Request SPEP (53614)Indication: Osteopenia On: 74-Dcp-397546:41 Request LIPID PANEL (97499)Indication: Other hyperlipidemia On: 88-Qmo-486498:53 Request HgA1C , Office (94167)Indication: Diabetes mellitus type 2, controlled On: 69-Ypy-305267:23 Request CULTURE, SPUTUM (45070)Indication: Cough On: 15-Kwy-286759:46 Request HEPATIC FUNCTION PANEL (17573)Indication: Other and unspecified hyperlipidemia On: 75-Hud-553273:20 Request LIPID PANEL (73948)Indication: Other and unspecified hyperlipidemia On: 57-Osc-208689:20 Request FECAL OCCULT HGB ASSAY- tubes sent home (89061)Indication: Well woman exam with routine gynecological exam On: :46 Request MICROALBUMIN URINE QUANT (09985)Indication: Diabetes mellitus type 2, controlled On: :34 Request TSH (68639)Indication: Acquired hypothyroidism On: 89-Fln-176705:34 Request HEPATIC FUNCTION PANEL (11641)Indication: Other hyperlipidemia On: 85-Qgk-404718:34 Request LIPID PANEL (91193)Indication: Other hyperlipidemia On: 00-Vfs-181026:34 Request METABOLIC PANEL, COMPREHENSIVE (68807)Indication: Other and unspecified hyperlipidemia On: :24 Request LIPID PANEL (42345)Indication: Other and unspecified hyperlipidemia On: :23 Request HEPATIC FUNCTION PANEL (98059)Indication: Other and unspecified hyperlipidemia On: :29 Request LIPID PANEL (35077)Indication: Other and unspecified hyperlipidemia On: :29 Request HgA1C , Office (53384)Indication: Diabetes mellitus type 2, controlled On: :14 Request Thin prep Pap (81449)Indication: Well woman exam with routine gynecological exam On: :36 Request TSH (63556)Indication: Acquired hypothyroidism On: :33 Request MICROALBUMIN URINE QUANT (02562)Indication: Diabetes mellitus type 2, controlled On: :32 Request LIPID PANEL ([id number])Indication: Other and unspecified hyperlipidemia On: :32 Request METABOLIC PANEL, COMPREHENSIVE ([id number])Indication: Hypertension On: :32 Request CBC WITH MANUAL DIFF ([id number])Indication: Hypertension On: :31 Request Planned Encounters Medical; [facility] Pre Wellness Exam (DF Nurse) - On: 05-Jul-2018 10:00 [facility] NURSE, [facility] Medical; [facility] Wellness Exam (Doctor) - On: 19-Jul-2018 13:30 [facility] Fast DO, Etta A Fast DO, Etta A Planned Procedures Flu Vaccine (Quadrivalent) On: 05-Apr-2018 Intent [id number]: Fast DO, Etta A Fast Comments: Lot #[id number]-L dltd, IMDose prefilled syringegiven by: CHRIS Moody reviewed and ABN signed DO, Etta A Cartoid DopplerBy: Fast DO, On: 21-Nov-2017 Intent Etta A Fast DO, Etta A Comments: 02/18 Radiology - Knee - Right - On: 13-Jul-2017 Intent Weight BearingBy: Fast DO, Etta A Fast DO, Etta A SCREENING DIGITAL TOMOSYNTHESIS On: 13-Jul-2017 Intent OF BREAST ([id number])By: Fast DO, Comments: END September Etta A Fast DO, Etta A ELECTROCARDIOGRAM, COMPLETE On: 13-Jul-2017 Intent (ECG) ([id number])By: Fast DO, Etta A Fast DO, Etta A Flu Vaccine (Quadrivalent) On: 13-Apr-2017 Intent [id number]: Fast DO, Etta A Fast Comments: Lot:[id number]:10/2017Dose:0.5mLRoute:IMSite:L DltdGiven By:MADELYN guillermo DO, Etta A Cartoid DopplerBy: Fast DO, On: 08-Nov-2016 Intent Etta A Fast DO, Etta A Comments: january DEXA SCAN AXIAL SKELETON On: 28-Jul-2016 Intent ([id number])By: Fast DO, Etta A Comments: end september Fast DO, Etta A SCREENING DIGITAL TOMOSYNTHESIS On: 28-Jul-2016 Intent OF BREAST ([id number])By: Fast DO, Etta A Fast DO, Etta A ELECTROCARDIOGRAM, COMPLETE On: 19-Apr-2016 Intent (ECG) ([id number])By: Fast DO, Etta A Fast DO, Etta A Flu Vaccine (Quadrivalent) On: 12-Mar-2016 Intent [id number]: Levy Busby Comments: FLUlot: [id number]:12/31/16site:Lt deltoidroute:IMdose:.5mlDEMICK, MA US DOPPLER CAROTID BILATERAL On: 06-Nov-2015 Intent ([id number])By: Elena Henderson MD MAMMOGRAM, SCREENING, BOTH On: 25-Aug-2015 Intent BREAST ([id number])By: Fast DO, Etta A Fast DO, Etta A Aerosol Treatment ([id number])By: On: 15-Nov-2014 Intent Fátima Peoples LPN MAMMOGRAM, SCREENING, BOTH On: 20-Aug-2014 Intent BREAST ([id number])By: Fast DO, Etta A Fast DO, Etta A Flu Vaccine (Quadrivalent) On: 05-Jun-2014 Intent [id number]: Fast DO, Etta A Fast Comments: lot:[id number]:dose:0.5mLRoute: IMlocation: L armgiven by: geoffrey DO, Etta A ADMINISTRATION OF INFLUENZA On: 05-Jun-2014 Intent VIRUS VACCINE ([id number])By: Yoel Enciso 13 ([id number])By: Dequan ANG, On: 16-Apr-2014 Intent Etta A Dequan DO, Etta A Comments: Lot:[id number]:07/19Dose:prefilled Route:imSite:la rmGiven By:MADELYN signed DEXA SCAN AXIAL SKELETON On: 16-Apr-2014 Intent ([id number])By: Crow Lopez DOa A Comments: you Lopez DO Etta A Radiology - Ankle - RightBy: On: 20-Aug-2013 Intent Fast DO, Etta A Fast DO, Etta A Eprescribed prescriptions On: 20-Aug-2013 Intent ([id number])By: Crow Lopez DOa A Fast DO, Etta A MAMMOGRAM, SCREENING, BOTH On: 04-Apr-2013 Intent BREASTS ([id number])By: Dequan ANG, Comments: Etta Skinner DO A FLU VAC, SPLIT, >3 YEARS, On: 04-Apr-2013 Intent INTRAMUSC ([id number])By: José Miguel, Comments: Lot #:[id number] date:mount given:0.5mlRoute: IMSite given: L dltdVIS and ABN signedGiven by: BEAR Edmond IMMUNIZ ADMNIN, 1 VAC, On: 04-Apr-2013 Intent SNGL/COMBO ([id number])By: Manda Valdez Toradol Injection, 30 mg On: 07-Aug-2012 Intent ([id number])By: Alyson Capps CNP Comments: Lot: [id number]: 9.14Amt: 1mlRoute: IMSite: R GlutealGiven by: SHANTE Merritt CT - Abdomen & Pelvis Stone On: 07-Aug-2012 Intent ProtocolBy: Alyson Capps CNP Comments: today SPECIMEN HANDLING/TRANSPORT On: 07-Aug-2012 Intent ([id number])By: Kary Werner LPN Eprescribed prescriptions On: 21-Jul-2012 Intent ([id number])By: Manda Valdez MAMMOGRAM, SCREENING, BOTH On: 29-Feb-2012 Intent BREASTS ([id number])By: Dequan ANG, Comments: screening-dec Etta A Dequan DO, Etta A DXA, BONE DENSITY, AXIAL On: 29-Feb-2012 Intent SKELETON ([id number])By: Dequan ANG, Comments: dec Etta A Dequan DO Etta A EKG ([id number])By: Etta Lopez DO On: 29-Feb-2012 Intent A Fast DO, Etta A Comments: ekg showed normal sinus rhythym, normal axis, no acute st/t wave changes Eprescribed prescriptions On: 12-Nov-2011 Intent ([id number])By: Etta Lopez DO A Dequan ANG, Etta A Radiology - ChestBy: Bonezzi On: 05-Nov-2011 Intent Elena BARRIGA Comments: call wet read. Inhaler Demonstration On: 29-Oct-2011 Intent ([id number])By: Alyson Capps CNP Aerosol Treatment ([id number])By: On: 29-Oct-2011 Intent Alyson Capps CNP PNEUM VAC ADLT/IMUMNOSPR, On: 28-Sep-2011 Intent SBC/INTRM ([id number])By: Dequan ANG, Comments: Lot #: [id number] date: 03/16Amount given: 0.5 mlRoute: IMSite given: left deltoidGiven by: DAVIE Swartz DO, Debra A ADMINISTRATION OF PNEUMOCOCCAL On: 28-Sep-2011 Intent VACCINE ([id number])By: Dequan ANG, Etta Lopez DO, Etta A MAMMOGRAM, SCREENING, BOTH On: 01-Jun-2011 Intent BREASTS ([id number])By: Etta Lopez DO, DO, Etta A TDAP VACCINE >7 IM ([id number])By: On: 01-Jun-2011 Intent Manda Valdez Comments: refuses- allergic FLU VAC, SPLIT, >3 YEARS, On: 01-Jun-2011 Intent INTRAMUSC ([id number])By: José Miguel, Comments: work Manda FLU VAC, SPLIT, >3 YEARS, On: 27-Apr-2010 Intent INTRAMUSC ([id number])By: Rosi, Comments: Lot:[id number]:10/2010Dose:0.5mlRoute:IMSite:Left Deltoid Given by: PSirl, MA Phyllis IMMUNIZ ADMNIN, 1 VAC, On: 27-Apr-2010 Intent SNGL/COMBO ([id number])By: Phyllis Aranda DXA, BONE DENSITY, AXIAL On: 02-Mar-2010 Intent SKELETON ([id number])By: Fast DO, Etta A Fast DO, Etta A MAMMOGRAM, SCREENING, BOTH On: 02-Mar-2010 Intent BREASTS ([id number])By: Fast DO, Etta A Fast DO, Etta A Radiology - Hand - RightBy: On: 15-Dec-2009 Intent Alyson Capps CNP Comments: call wet read to [facility] Radiology - Finger(s) - On: 15-Dec-2009 Intent RightBy: Alyson Capps CNP Comments: call wet read Holter Monitor 24 hrsBy: Fast On: 29-Oct-2009 Intent DO, Etta A Fast DO, Etta A EKG ([id number])By: José Miguel, On: 29-Oct-2009 Intent Manda Comments: ekg showed normal sinus rhythym, normal axis, no acute st/t wave changes Radiology - Chest- PA and On: 30-Apr-2009 Intent LatBy: Fast DO, Etta A Fast DO, Etta A FLU VAC, SPLIT, >3 YEARS, On: 21-Apr-2009 Intent INTRAMUSC ([id number])By: José Miguel, Comments: Lot #:[id number] date:mount given:0.5mlRoute: IMSite given:left deltGiven by: BEAR Edmond IMMUNIZ ADMNIN, 1 VAC, On: 21-Apr-2009 Intent SNGL/COMBO ([id number])By: Manda Valdez Radiology - Chest- PA and On: 24-Sep-2008 Intent LatBy: Fast DO, Etta A Fast DO, Etta A Echo CompleteBy: Fast DO, Etta On: 24-Sep-2008 Intent A Fast DO, Etta A Bio Z ([id number])By: Fast DO, Etta On: 24-Sep-2008 Intent A Fast DO, Etta A Comments: done-awnormal paremteres EKG ([id number])By: Fast DO, Etta On: 24-Sep-2008 Intent A Fast DO, Etta A Comments: done-awekg showed normal sinus rhythym, normal axis, no acute st/t wave changes Spirometry ([id number])By: Dequan ANG, On: 24-Sep-2008 Intent Etta A Fast DO, Etta A Comments: done-awgood effort and curve normal Pulse Oximetry ([id number])By: Dequan On: 24-Sep-2008 Intent DO, Etta A Fast DO, Etta A Comments: 97% MAMMOGRAM, SCREENING, BOTH On: 25-Jun-2008 Intent BREASTS ([id number])By: Dequan ANG, Etta A Fast DO, Etta A Spirometry ([id number])By: Dequan ANG, On: 26-Mar-2008 Intent Etta A Fast DO, Etta A Comments: good effort and curve normal EKG ([id number])By: José Miguel, On: 29-Dec-2007 Intent Manda Comments: ekg showed normal sinus rhythym, normal axis, no acute st/t wave changes DXA, BONE DENSITY, AXIAL On: 26-Sep-2007 Intent SKELETON ([id number])By: Dequan ANG, Comments: postmenopausal without estrogen Etta A Fast DO, Etta A EKG ([id number])By: Crow Lopez DOa On: 27-Oct-2006 Intent A Fast DO, Etta A Comments: ekg showed normal sinus rhythym, normal axis, no acute st/t wave changes Bone Density StudyBy: Dequan ANG, On: 13-Sep-2006 Intent Etta A Fast DO, Etta A Comments: post menopausal without estrogen MAMMOGRAM, SCREENING, BOTH On: 13-Sep-2006 Intent BREASTS ([id number])By: Crow Lopez DOa A Fast DO, Etta A Planned Medications [...] CARDIO NOT TOO LONG ago and wei craig- not much issue with the vertigo and [...] disease [facility] Office Visit On: 8-May-2017 10:06 Encounter Reason: Follow up for chronic [...] much). Patient has been compliant with instructions. [facility] End: 04-Apr-2013 14:07 t medication use: no [...] Patient sleeps 7 hours per night. [facility] End: 12-Nov-2011 9:53 drew issues the patient [...] REASON] Follow up tests - Date: (cxr 5). Encounter Diagnosis: Bacterial pneumonia, unspecified (482.9) [facility] [...] as needed- bps are good at ho ut and weight down another pounds- sugars are [...] up). Patient has been compliant with instructions. Nallely snyder medication use: no side effects and compliant [...] Internal Medicine End: 18-Mar-2006 22:54 [facility]; a guarantor
--- OUTSIDE RECORDS SUMMARY | 2018-09-27 09:31 | XMS RPT_ITS | Continuity of Care Document ---
:1940 Author Organization [facility] Address [facility] [address] [place] [address] Phone Care Team Providers Name Role Phone [...] [phone]) Comments: on coumadin, [facility] officehistory of kidney stone Status: Active [...] Comments: she will see Kristen- refer to manager of application development with respect to what to eat with [...] nostril daily for 90 days Quantity: 3 {Juntura} Refills: 3 Ordered:14-Mar-2017 Leilani Ash Start : [...] Echocardiogram Complete Result: Comments: See Note; NOTES: [facility] Cardiovascular Services [address] [place] [address] Echo Complete 04/11/18 1052 MR#: [id number] Acct: [id number] Name: YOEL SCOTT Rep #: [id number] : 1940 77 From: Cyril Robles MD Attending Dr: Cyril Robles MD Status: REG CLI Ordering Dr: Cyril Robles MD Date: 04/11/18 Location: [facility] Sex: F C Admitted: Reason For Study: [...] Dicta mary: 04/11/18 1052 Date Transcribed: 04/11/181711 Unit Manager: Signed 28-Mar-2018 Cardiology Visit Report Result: Comments: See Note; NOTES: [facility] [address] [place], [place] [address] OFFICE VISIT Date of Service: 03/28/18 MR#: [id number] Acct: [id number] Name: YOEL SCOTT Rep #: [id number] : 1940 Provider: Cyril Robles MD Age/Sex: 77/F Location: [facility] Status: Signed HPI HPI Chief Complaint: [...] 03/28/18 @ 15:32 by Cyril Robles MD) [facility] current use of anticoagulant (Chronic) Atrial fibrillation [...] Pedis Pulse, Right Posterior Tibial Pulse, Left Authorizer ior Tibial Pulse, Right Radial Pulse, Left [...] Other Medications Discontinued: Follow Up 1 Year ([facility]) Coding Level of Care Code [...] by BMS Result: Comments: See Note; NOTES: [facility] [address] [place] [address] 12 Lead EKG performed by BMS 03/28/18 150 MR#: [id number] Acct: [id number] Name: YOEL SCOTT Rep #: [id number] : 1940 77 From: Cyril Robles MD Attending Dr: Cyril Robles MD Status: DEP [facility] Ordering Dr: Cyril Robles MD Date: 03/28/18 [place] [facility] Sex: F C Admitted: ORDER # : [id number] BMS/12 Lead EKG performed by BMS Sinus Bradycardia Low voltage in precordial leads. - Negative precordial -waves -Probably normal -consider anteroseptal ischemia. ABNORMAL 03/29/18 1305 & amp;#60;Electronically signed by Cyril Robles MD> Date Cyril Robles MD CC: Etta Lopez DO Date Dictated: 03/28/181505 Date Transcribed: 03/28/181505 Unit Manager: CO Signed 28-Mar-2018 12 Lead EKG performed by BMS Result: Comments: See Note; NOTES: [facility] [address] [place] [address] 12 Lead EKG performed by [facility] 03/28/18 1506 MR#: [id number] Acct: [id number] Name: YOEL SCOTT Rep #: [id number] : 1940 77 From: Cyril Robles MD Attending Dr: Cyril Robles MD Status: DEP [facility] Ordering Dr: Cyril Robles MD Date: 03/28/18 Location: [facility] Sex: F C Admitted: ORDER # : [id number] BMS/12 Lead EKG performed by [facility] ECG Report Interpretation Sinus Bradycardia Low voltage in precordial leads. - Negative precordial T-waves - Probably normal -consid er anteroseptal ischemia. ABNORMAL Electronically signed on 06/07/2018 at 11:38 by Cyril Robles [employer] Version [id number] 06/07/18 1146 Date Cyril Robles MD CC: Etta Lopez DO Date Dictated: 03/28/181505 Date Transcribed: 03/28/18 150 Unit Manager: CO Signed 08-Feb-2018 Carotid Duplex Ultrasound Result: Comments: See Note; NOTES: [facility] Cardiovascular Services [address] [place] [address] Carotid Duplex Ultrasound 02/06/18 0958 MR#: [id number] Acct: [id number] Name: YOEL LERMA Rep #: [id number] : 1940 77 From: Hermann Gaspar MD Attending Dr: Etta Lopez DO Status: REG CLI Ordering Dr: Etta Lopez DO Date: 02/06/18 Location: [facility] Sex: F C Admitted: [facility] n For Study: Carotid Stenosis [...] left verteb ral artery. Procedure Carotid Duplex 78529. Exam performed in department. Interpretation Summary Mild (<50%) stenosis right extracranial internal carotid. Moderate (50- 69%) stenosis left extra cranial internal carotid. Flow within the vertebral arteries is antegrade bilaterally. Ordering P hysician: Etta Lopez Referring Physician: Etta Lopez Performed By: Alyssa Rodrigues, RDCS, RVT 08749 Date Hermann Gaspar MD CC: Etta Lopez DO Date Dictated: 02/06/18 0958 Date Transcribed: 02/08/18749 Unit Manager: Signed 05-Oct-2017 SCREENING MAMM (CAD), BILAT Result: Comments: See Note; NOTES: [facility] Imaging Services [address] [place] [address] SCREENING MAMM (CAD), BILAT MR#: [id number] Acct: [id number] Name: YOEL SCOTT Rep #: [id number] : 1940 F 77 From: Elmer Sexton MD PCP: Etta Lopez DO Status: REG CLI Study: SCREENING MAMM (CAD), BILAT Date of Exam: 10/05/17 Exam# [id number] Ordering Dr: Etta Lopez DO [facility] MOGRAPHY - BILATERAL SCREENING REASON FOR EXAM: [...] biopsy of a clinically susp icious abnormality. [id number] Electronically Signed: Elmer Sexton MD at 13:49 EDT Tel [phone], Service support , CC: Etta Lopez DO Unit Manager: Signed 02-Sep-2017 Cardiology Visit Report Result: Comments: See Note; NOTES: [facility] [address] [place] [address]. 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 Fo llow Up 6 Months (EDGE GLUER) Coding Level of Care Code Off vis,est,level [...] by Bismark CALLES> Date Bismark Siria Lilia TOP COLLAR MAKER-C Cosigner Signature: Date (if applicable) CC: Etta Lopez DO 25-Jul-2017 Knee 4 or More Views Result: Comments: See Note; NOTES: [facility] Imaging Services [address] [place] [address] Knee 4 or More Views MR#: [id number] Acct: [id number] Name: YOEL SCOTT Rep #: [id number] : 1940 F 77 From: Elmer Sexton MD PCP: Etta Lopez DO Status: REG RCR Study: Knee 4 or More Views Date of Exam: 07/25/17 Exam# [id number] Ordering Dr: Etta Lopez DO STUDY: X-RAY [...] Elmer Sexton MD at 13:40 EST Tel [phone], Game Trustic e support , CC: Etta Lopez DO Unit Manager: Signed 09-Feb-2017 Carotid Duplex Ultrasound Result: Comments: See Note; NOTES: [facility] Cardiovascular Services [address] [place] [address] Carotid Duplex Ultrasound 01/31/17 1002 MR#: [id number] Acct: [id number] Name: YOEL LERMA Rep #: [id number] : 1940 76 From: Hermann Gaspar MD [...] in the left bulb. Procedure Carotid Duplex 50824. Exam performed in department. Int erpretation Summary [...] 01/31/17 1002 Date Transcrib ed: 02/09/17 0739 Unit Manager: Signed 29-Sep-2016 Dexa Bone Density Study () Result: Comments: See Note; NOTES: [facility] Imaging Services [address] [place] [address] Verdana 4d Dexa Bone Density Study () MR#: [id number] Acct: [id number] Name: SONIALIYA SALINA Patten Rep #: [id number] : 1940 F 76 From: Elmer Sexton MD PCP: Etta Lopez DO Status: REG CLI Study: Dexa Bone Density Study () Date of Exam: 09/29/16 Exam# [id number] Ordering Dr: Leonor Lopez DO STUDY: DUAL [...] Elmer Sexton MD at 10:48 EDT Tel [phone], Service support [phone], CC: Etta Lopez DO Unit Manager: Signed 29-Sep-2016 SCREENING MAMM (CAD), BILAT Result: Comments: See Note; NOTES: [facility] Imaging Services [address] [place] [address] Verdana 4d SCREENING MAMM (CAD), BILAT MR#: [id number] Acct: [id number] Name: ZACH SCOTT Rep #: [id number] : 1940 F 76 From: Elmer Sexton MD PCP: Etta Lopez DO Status: REG CLI Study: SCREENING MAMM (CAD), BILAT Date of Exam: 09/29/16 Exam# [id number] Ordering Dr: Claribel Lopez ra, DO MAMMOGRAPHY [...] [facility]. Approximately 10% of breast cancers are not detected by mammography. A normal mammogram should not delay biopsy of a clinically suspicious abnormality. [id number] Electronically Signed : Elmer Sexton MD at 12:22 EDT Tel [phone], Service support [phone], CC: Etta Lopez DO Unit Manager: Signed 03-Sep-2016 Emergency Department Summary Result: Comments: See Note; NOTES: [facility] Medical Records Department [facility] [place] [address] Emergency Department Summary MR#: [id number] Acct: [id number] Name: ZCAH SCOTT Rep #: [id number] : 1940 76 From: Micaela Noe MD [...] prescribed Flomax and given a prescription for Georgetown for pain at home. She is on Coumadin and limited in the pain medication she can take. She was more comfortable prior to discharge and resting comfortably in bed. She is established with Dr. Peterson and will follo w up with him next week. The patient is discharged home with family. IMPRESSION: Renal colic, left urolithiasis. MICAELA NOE MD T: NTS JOB: [id number] 09/03/16 0822 <Electronically signed by Micaela Noe MD> Date Micaela Noe MD Cosigner Signature (If Indicated): Date CC: Claribel Lopez DO Date Dictated: 08/28/162207 Date Transcribed: 08/28/162207 Unit Manager: Signed 29-Aug-2016 Discharge Instruction Result: Comments: See Note; NOTES: [facility] Medical Records Department [address] [place] [address] Discharge Instruction 08/28/16 1713 MR#: [id number] Acct: [id number] Name: SONIAMarian MANN Rep #: [id number] : 1940 76 From: Micaela Noe MD PCP: Etta Lopez DO Status: DEP ER ED Disposition - Plan for ED Patient: Disposition: Home or Assisted Living Chief Complaint: Flank Pain Instructions: ED Stone Renal W Colic Prescriptions: Hydrocodone Bitart/Apap 5-325 [[place] 5/325] 1 tablet PO Q6H PRN PRN [...] your Primary Care Provider. Call [facility] ([phone]) or report to the closest Emergency Room. Call 911 if necessary. 08/29/16 0043 <Electronically signed by Micaela Noe MD> Date Micaela Noe MD Cosigner Signature (If Indicated): Date CC: Etta Lopez DO 28-Aug-2016 Abdomen/Pelvis without Cont Result: Comments: See Note; NOTES: [facility] Imaging Services [address] [place] [address] Verdana 4d Abdomen/Pelvis without Cont MR#: [id number] Acct: [id number] Name: ZACH SCOTT Rep #: [id number] : 1940 F 76 From: Monica Faye DO PCP: Etta Lopez DO Status: DEP ER Study: Abdomen/Pelvis without Cont Date of Exam: 08/28/16 Exam# [id number] Ordering Dr: Micaela Noe ADDENDUM by Monica Faye DO on 09/06/[address]/Abdomen/Pelvis without Cont 09/06/161827 Date cc: Etta Lopez DO; Micaela Noe [...] at 18:21 EST Tel , Service support [phone], 09/06/161820 Date cc: Etta Lopez DO; Micaela Noe [...] at 16:24 EST Tel , Service support [phone], CC: Etta Lopez DO; Micaela Noe MD Unit Manager: Signed 28-Aug-2016 Abdomen/Pelvis without Cont Result: Comments: See Note; NOTES: [facility] Imaging Services [address] [place] [address] Verdana 4d Abdomen/Pelvis without Cont MR#: [id number] Acct: [id number] Name: ZACH SCOTT Earline Rep #: [id number] : 1940 F 76 From: Monica Faye DO PCP: Etta Lopez DO Status: REG ER Study: Abdomen/Pelvis without Cont Date of Exam: 08/28/16 Exam# [id number] Ordering Dr: Micaela Noe STUDY: CT ABDOMEN [...] at 16:24 EST Tel , Service support [phone], CC: Etta Lopez DO; Micaela Noe MD Unit Manager: Signed 11-Aug-2016 Echocardiogram Complete Result: Comments: See Note; NOTES: [facility] Cardiovascular Services [address] [place] [address] Echo Complete 08/11/16 1359 MR#: [id number] Acct: [id number] Name: YOEL SCOTT Rep #: [id number] : 1940 76 From: Cyril Robles MD Attending Dr: Wilberto Trevino Status: REG CLI Ordering Dr: Wilberto Trevino Date: 08/11/16 Location: [facility] Sex: F C Admitted: Reaso n 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 Procedure Carotid Duplex 85796. Exam performed in department. Interpretation Summary Mild (<50%) stenosis right extracranial internal carotid. Mild (<50%) stenosis left extracranial internal carotid. Flow within the vertebral arteries is antegrade bilaterally. Ordering Physician: Elena Henderson Referring Physician: Etta Lopez Performed By: Analia Hwang RVT 01/07/16 1125 Date Hermann Gaspar MD CC: Elena Henderson MD; Etta Lopez DO Date Dictated: 12/31/15 1101 Date Transcribed: 01/07/16 1125 Unit Manager: Signed 06-Nov-2015 EKG ([id number]) Comments: see scanned document of test done to see results reviewed today with patient Result: [MEASUREMENTS ANALYSIS] Date of Test: 11/06/2015 11:27:04; Heart Rate: 54; ND Interval: 180; QRS: 102; QT Interval: 472; Corrected QT Interval (QTc): 462; P Wave Leivasy: 60; QRS Wave Leivasy: 19; T Wave Leivasy : 38; Blood Pressure: 142/86 [ECG DIAGNOSTIC STATEMENTS] Date of Test: 11/06/2015 11:27:04; Summary: Sinus Bradycardia - Negative precordial T-waves. WITHIN NORMAL LIMITS 29-Sep-2015 Bilat Scrn Digital AND CAD Result: Comments: See Note; NOTES: [facility] Imaging Services [address] [place] [address] Verdana 4d Bilat Scrn Digital AND CAD MR#: [id number] Acct: [id number] Name: YOEL SCOTT Rep #: [id number] : 1940 F 75 From: Elmer Sexton MD PCP: Etta Lopez DO Status: REG CLI Study: Bilat Scrn Digital AND CAD Date of Exam: 09/29/15 Exam# [id number] Pipo valladares Dr: Etta Lopez DO MAMMOGRAPHY [...] delay biopsy of a clinically suspicious abnormality. [id number] Electronically Signed: Elmer Sexton MD at 9:19 EDT Tel [phone], Doris alexandra support [phone], CC: Etta Lopez DO Unit Manager: Signed 05-Aug-2015 Stress Report Result: Comments: See Note; NOTES: [facility] Cardiovascular Services [address] [place] [address] Verdana 4d Stress Test Regular MR#: [id number] Acct: [id number] Name: YOEL SCOTT Rep #: [id number] : 1940 75 From: Cyril Robles MD [...] noted. Cyril Robles MD T: NTS JOB: [id number] 08/05/15 1729 <Electronically signed by Cyril Robles MD> Date Cyril Robles MD CC: Cyril Robles MD; Etta Lopez DO Date Dictated: 08/04/151636 Date Transcribed: 08/04/151636 Unit Manager: Signed 25-Sep-2014 Biljazmine Freeman Digital AND CAD Result: Comments: See Note; NOTES: [facility] Imaging Services [address] [place] [address] Breast Imaging Report MR#: [id number] Acct: [id number] Name: YOEL SCOTT Rep #: [id number] : 1940 F 74 From: Elmer Sexton MD PCP: Etta Lopez DO Status: REG CLI Study: Hrariet Freeman Digital AND CAD Date of Exam: 09/25/14 Exam# [id number] Ordering Dr: Etta Lopez DO MAMMOGRAPHY - BILATERAL SCREENING REASON FOR EXAM: Female, 74 years old. Routine annual screening examination. PERTINENT HISTORY: Sister with breast cancer. TECHNIQUE: Digital examination. Medi olateral oblique (MLO) and craniocaudad (CC) views of both breasts were obtained. CAD: CAD was performed on this study. COMPARISON: Comparison is made with prior study dated 2013 and [facility] 2012. FINDINGS: Breast Composition: There are scattered [...] Elmer Sexton MD at 12:41 EDT Tel [phone], Service support [phone], CC: Etta Lopez DO Unit Manager: Signed 25-Sep-2014 Dexa Bone Density Study (HP) Result: Comments: See Note; NOTES: [facility] Imaging Services [address] [place] [address] Bone Density Report MR#: [id number] Acct: [id number] Name: YOEL SCOTT Rep #: [id number] : 1940 F 74 From: Elmer Sexton MD PCP: Etta Lopez DO Status: REG CLI Study: Dexa Bone Density Study (HP) Date of Exam: 09/25/14 Exam# [id number] Ordering Dr: Etta Lopez DO STUDY: DUAL [...] Elmer Sexton MD at 13:04 EDT Tel [phone], Service support [phone], CC: Etta Lopez DO Unit Manager: Signed 06-Dec-2013 Echocardiogram Complete Result: Comments: See Note; NOTES: [facility] Cardiovascular Services [address] [place] [address] Echo Complete 12/06/13 0946 MR#: [id number] Acct: [id number] Name: TOYIN SCOTT Rep #: [id number] : 1940 73 From: Cyril Robles MD Attending Dr: Shey BARRIGA, Status: REG CLI Ordering Dr: Cyril Robles MD Date: 12/06/13 Location: [facility] Sex: F C Admitted: [facility] This was a 2D Doppler, [...] Dictated: 12/06/13 0946 Date Transcribed: 12/06/13 1237 Unit Manager: Signed 20-Aug-2013 Ankle min 3 Views Result: Comments: See Note; NOTES: [facility] Imaging Services [address] [place] [address] Radiology Report MR#: [id number] Acct: [id number] Name: YOEL SCOTT Rep #: [id number] : 1940 F 73 From: Elmer Sexton MD PCP: Status: REG CLI Study: Ankle min 3 Views Date of Exam: 08/20/13 Exam# [id number] Ordering Dr: Etta Lopez DO STUDY: X-RAY [...] M.D. at 16:03 EST , Service support [phone], CC: Etta Lopez DO Unit Manager: Signed 20-Jul-2013 Bilat Scrn Digital & CAD Result: Comments: See Note; NOTES: [facility] Imaging Services [address] [place] [address] Breast Imaging Report MR#: [id number] Acct: [id number] Name: ZACH CSOTTA Earline Rep #: [id number] : 1940 F 73 From: Elmer Sexton MD PCP: Status: REG [facility] Exam# [id number] Ordering Dr: Etta Lopez DO MAMMOGRAPHY - [...] M.D. at 15:30 EST , Service support [phone], CC: Etta Lopez DO Unit Manager: Signed Immunization Name Dates Details Influenza (3 years and up) on: 21-Apr-2009 Comments: Lot #:[id number] date:mount given:0.5mlRoute: IMSite given:left deltGiven by: BEAR Edmond Family History Unknown Family Member Name Dates Details Brother 1 Comments: living heart issues and digestive issues Status: Active Brother 2 Comments: living and good health Status: Active Father Comments: High Blood Pressure, [place] x 2, Smoker, age 55 - his father MT at 40 Status: Active Mother Comments: CHF age 87 - Rheumataic fever with valve problem Status: Active Mother's Sister: Kidney Disease, Thyroid Goiter Status: Active sister - strangled [facility] [place] by roomate- alzheimers Status: Active Sister 1 [...] kg/m2 Body Surface Area Calculated 1.81 m2 75-Pch-975517:25 Temperature 97.3 f Comments: Method: Temporal Pulse [...] kg/m2 Body Surface Area Calculated 1.81 m2 21-Fyx-384943:59 Temperature 96.4 f Comments: Method: Temporal Pulse [...] kg/m2 Body Surface Area Calculated 1.81 m2 96-Ahh-029174:15 Temperature 97.1 f Pulse 52 /min Comments: [...] Arm; Cuff Size: Large Weight 183 lb 90-Nyx-790579:00 Temperature 97.4 f Comments: Method: Oral Pulse [...] 0.00 cm Results Date Description Value Details 79-Sbf-910465:01 Protime w/INR Fingerstick Comments: [place] [address] [place] [address] INR ISTAT 1.90 (Normal) Comments: Critical Value > 3.5 PROTIME ISTAT 21.7 {SEC} (Abnormal) Range: 11.9-14.4 Comments: Reference Range 11.9 - 14.4 85-Jkp-787490:03 Protime w/INR Fingerstick Comments: [place] [address] [place] [address] INR ISTAT 3.40 (Normal) Comments: Critical Value > 3.5 PROTIME ISTAT 38.3 {SEC} (Abnormal) Range: 11.9-14.4 Comments: Reference Range 11.9 - 14.4 73-Fed-956981:55 Basic Metabolic Profile (BMP) Comments: DR ROBLES [facility] [address] [place], [place], [address] GAP 8 (Normal) Range: 5-15 CO2 29.0 [...] A.D.A. criteria.Please note revised GLUCOSE reference range okczlbntr28/02/2018. 04-Hle-203113:55 CBC-Complete Blood Cnt No Diff Comments: DR ROBLES [facility]MP[facility] [address] [place], [place], [address] MPV 10.1 fL (Normal) Range: 6.2-12.0 PLT [...] 4.2-5.4 WBC 8.7 K/mm3 (Normal) Range: 4.4-11.0 86-Vzz-853205:55 Prothrombin Time w/INR Comments: DR ROBLES ORDERED PTTMICHAEL TERAN ORDERED [facility] [address] [place], [address] INR 1.0 (Normal) PROTIME 13.3 s (Normal) Range: 11.7-14.9 74-Zyy-375010:04 Protime w/INR Fingerstick Comments: [facility] [address] [place] [address] INR ISTAT 2.70 (Normal) Comments: Critical Value > 3.5 PROTIME ISTAT 31.1 {SEC} (Abnormal) Range: 11.9-14.4 Comments: Reference Range 11.9 - 14.4 14-Qnl-116315:16 METABOLIC PANEL, BASIC Comments: PATIENT WAS FASTINGPERFORMED BY: [facility] Ibqmra9144 [facility] [id number]; upcomng appt (65135) Calcium 9.3 mg/dL (Normal) Range: 8.7-10.3 Carbon [...] 8-27 Glucose 118 mg/dL (Abnormal) Range: 65-99 48-Mfa-979446:47 Protime w/INR Fingerstick Comments: [facility] [address] [place] [address] INR ISTAT 2.50 (Normal) Comments: Critical Value > 3.5 PROTIME ISTAT 29.1 {SEC} (Abnormal) Range: 11.9-14.4 Comments: Reference Range 11.9 - 14.4 91-Tsk-635535:23 LIPID PANEL (48095) Comments: PATIENT WAS FASTINGPERFORMED BY: [facility] [id number] LDL/HDL Ratio 0.7 {ratio} (Normal) Range: 0.0-3.2 Comments: LDL/HDL Ratio Men Women 1/2 Avg.Risk 1.0 1.5 Av g.Risk 3.6 3.2 2X Avg.Risk 6.2 5.0 3X Avg.Risk 8.0 6.1 LDL Cholesterol Calc 33 mg/dL (Normal) Range: 0-99 VLDL Cholesterol Drew 28 mg/dL (Normal) Range: 5-40 HDL Cholesterol 48 mg/dL (Normal) Triglycerides 140 mg/dL (Normal) Range: 0-149 Cholesterol, Total 109 mg/dL (Normal) Range: 100-199 24-Dtr-674478:23 TSH (THYROID STIMULATING Comments: PATIENT WAS FASTINGPERFORMED BY: [facility] [id number] HORMONE) ([id number]) TSH 1.970 {uIU/mL} (Normal) Range: 0.450-4.500 29-Dgj-220686:23 MICROALBUMIN: CREATININE RATIO Comments: PATIENT WAS FASTINGPERFORMED BY: [facility] [place] [address] [id number] (54896) AND (92226) Alb/Creat Ratio 14.1 {mg/g_creat} (Normal) Range: 0.0-30.0 Albumin, Urine 18.3 ug/mL (Normal) Creatinine, Urine 129.4 mg/dL (Normal) 39-Ypr-938736:23 METABOLIC PANEL, COMPREHENSIVE Comments: PATIENT WAS FASTINGPERFORMED BY: [facility] RahwayPnpifn3336 [facility] [id number] (95072) ALT (SGPT) 19 [iU]/L (Normal) Range: 0-32 [...] 8-27 Glucose 116 mg/dL (Abnormal) Range: 65-99 95-Ofa-110477:23 HGB A1C (29690) Comments: PATIENT WAS FASTINGPERFORMED BY: RYLIE [facility]CoRobert [facility] RahwayGrqfvq3028 [facility] [id number] Hemoglobin A1c 6.7 % (Abnormal) Range: 4.8-5.6 Comments: . Prediabetes: 5.7 - 6.4 Diabetes: >6.4 Glycemic control for adults with diabetes: <7.0 1-Tpm-349915:22 Protime w/INR Fingerstick Comments: [facility] [address] [place] [address] INR ISTAT 2.90 (Normal) Comments: Critical Value > 3.5 PROTIME ISTAT 32.8 {SEC} (Abnormal) Range: 11.9-14.4 Comments: Reference Range 11.9 - 14.4 50-Ezz-073132:47 Prothrombin Time w/INR Comments: [place] [address] [place], [address] INR 2.2 (Normal) PROTIME 24.8 s (Abnormal) Range: 11.7-14.9 85-Syv-664492:10 Protime w/INR Fingerstick Comments: [facility] [place] [address] [place] [address] INR ISTAT 3.30 (Normal) Comments: Critical Value > 3.5 PROTIME ISTAT 37.3 {SEC} (Abnormal) Range: 11.9-14.4 Comments: Reference Range 11.9 - 14.4 :57 Protime w/INR Fingerstick Comments: [facility] [place] [address] [place] [address] INR ISTAT 2.40 (Normal) Comments: Critical Value > 3.5 PROTIME ISTAT 27.2 {SEC} (Abnormal) Range: 11.9-14.4 Comments: Reference Range 11.9 - 14.4 12-Qgf-046124:03 LIPID PANEL (84098) Comments: PATIENT WAS FASTINGPERFORMED BY: LabCoRobert Wood Johnson [facility] Hospital at RahwayUfeygo1479 [facility] [id number] LDL/HDL Ratio 0.9 {ratio} (Normal) Range: 0.0-3.2 Comments: LDL/HDL Ratio Men Women 1/2 Avg.Risk 1.0 1.5 Av g.Risk 3.6 3.2 2X Avg.Risk 6.2 5.0 3X Avg.Risk 8.0 6.1 LDL Cholesterol Calc 44 mg/dL (Normal) Range: 0-99 VLDL Cholesterol Drew 27 mg/dL (Normal) Range: 5-40 HDL Cholesterol 47 mg/dL (Normal) Triglycerides 137 mg/dL (Normal) Range: 0-149 Cholesterol, Total 118 mg/dL (Normal) Range: 100-199 91-Sfg-522923:03 CBC with auto diff (78109) Comments: PATIENT WAS FASTINGPERFORMED BY: LabCoRobert Wood Johnson [facility] Hospital at RahwayVlpwzf9337 [facility] [id number] Immature Grans (Abs) 0.0 {x10E3/uL} (Normal) Range: [...] 3.77-5.28 WBC 9.1 {x10E3/uL} (Normal) Range: 3.4-10.8 70-Xth-977359:03 METABOLIC PANEL, COMPREHENSIVE Comments: PATIENT WAS FASTINGPERFORMED BY: LabCoRobert Wood Johnson [facility] Hospital at RahwayPpcjoo9941 [facility] [id number]; will review at upcoming appt (76169) ALT (SGPT) 20 [iU]/L (Normal) Range: 0-32 [...] 8-27 Glucose 119 mg/dL (Abnormal) Range: 65-99 43-Bvz-407498:03 HGB A1C (34347) Comments: PATIENT WAS FASTINGPERFORMED BY: [facility]6370 [employer] [facility] [id number] Hemoglobin A1c 6.4 % (Abnormal) Range: 4.8-5.6 Comments: . Pre-diabetes: 5.7 - 6.4 Diabetes: >6.4 Glycemic control for adults with diabetes: <7.0 14-Hvz-898577:53 URINE KRISTINA CULTURE-IDENTIFICATN Comments: PATIENT NOT FASTINGPERFORMED BY: [employer] Kxemdq9672 [facility]The [facility] [id number] Information: SRC:MARK ([id number]) Result 1 MTHREE (Normal) Comments: More than 3 organisms recovered, none predominant. Please submitanother culture if clinically indicated.4,000 Colonies/mL Urine Final report (Normal) Culture,Comprehensive 13-Vdc-022647:42 Protime w/INR Fingerstick Comments: [facility] [place] [address] [place] [address] INR ISTAT 3.30 (Normal) Comments: Critical Value > 3.5 PROTIME ISTAT 37.8 {SEC} (Abnormal) Range: 11.9-14.4 Comments: Reference Range 11.9 - 14.4 :59 Microscopic Examination Comments: PATIENT NOT FASTINGPERFORMED BY: LabCoRobert Wood Johnson [facility] Hospital at RahwayUwwnzo2212 [facility] [id number] Bacteria Few (Normal) Mucus Threads Present (Normal) Crystal Type Calcium Oxalate (Normal) Crystals Present (Abnormal) Cast Type Hyaline casts (Normal) Casts Present {/lpf} (Abnormal) Epithelial Cells (non renal) 0-10 {/hpf} (Normal) Range: 0 - 10 RBC 0-2 {/hpf} (Normal) Range: 0 - 2 WBC 11-30 {/hpf} (Abnormal) Range: 0 - 5 65-Fyu-290225:22 Protime w/INR Fingerstick Comments: [facility] [address] [place] [address] INR ISTAT 2.20 (Normal) Comments: Critical Value > 3.5 PROTIME ISTAT 25.9 {SEC} (Abnormal) Range: 11.9-14.4 Comments: Reference Range 11.9 - 14.4 :59 CBC W/AUTO DIFF WBC Comments: PATIENT NOT FASTINGPERFORMED BY: LabCoRobert Wood Johnson [facility] Hospital at RahwayDzjtid2974 [facility] [id number] Information: NURSE DRAW ([id number]) Immature Grans (Abs) 0.0 {x10E3/uL} (Normal) Range: [...] 3.77-5.28 WBC 9.5 {x10E3/uL} (Normal) Range: 3.4-10.8 46-Upy-534627:59 METABOLIC PANEL, COMPREHENSIVE Comments: PATIENT NOT FASTINGPERFORMED BY: LabCoRobert Wood Johnson [facility] Hospital at RahwayLqiusm9141 [facility] [id number] (32558) ALT (SGPT) 16 [iU]/L (Normal) Range: 0-32 [...] Glucose, Serum 121 mg/dL (Abnormal) Range: 65-99 93-Unx-858607:59 MICROALBUMIN: CREATININE RATIO Comments: PATIENT NOT FASTINGPERFORMED BY: EdvertRobert Wood Johnson University Hospital at RahwayDoddzd5607 [facility] [id number] (45812) AND (86171) Microalb/Creat Ratio 14.1 {mg/g_creat} (Normal) Range: 0.0-30.0 Microalbumin, Urine 17.0 ug/mL (Normal) Creatinine, Urine 120.9 mg/dL (Normal) 16-Gpl-252158:59 URINALYSIS, W/ MICRO (55267) Comments: PATIENT NOT FASTINGPERFORMED BY: [employer]vert Agndbp2155 [facility] [id number] Microscopic Examination See below: (Normal) Comments: Microscopic was indicated and was performed. Nitrite, Urine Negative (Normal) Urobilinogen,Semi-Qn 0.2 mg/dL (Normal) Range: 0.2-1.0 Bilirubin Negative (Normal) Occult Blood Negative (Normal) Ketones Negative (Normal) Glucose Negative (Normal) Protein Negative (Normal) WBC Esterase 2+ (Abnormal) Appearance Clear (Normal) Urine-Color Yellow (Normal) pH 5.0 (Normal) Range: 5.0-7.5 Specific [place] 1.029 (Normal) Range: 1.005-1.030 60-Msr-609733:23 INR Fingerstick Comments: [facility] [place] [address] [place], [place] [address] INR ISTAT 2.70 (Normal) Comments: Critical Value > 3.5; ADDENDA: managed by cardio 25-Gxx-417330:23 Prothrombin Time Fingerstick Comments: [facility] Ueqk[address] [place], [place] [address] PROTIME ISTAT 30.4 {SEC} (Abnormal) Range: 11.9-14.4 Comments: Reference Range 11.9 - 14.4 2-Lts-780912:24 LIPASE (83726) Comments: PATIENT WAS FASTINGPERFORMED BY: LabCoRobert Wood Johnson [facility] Hospital at RahwayAdjphk7173 [facility] [id number]; can review on 03/14 Lipase, Serum 53 U/L (Normal) Range: 0-59 0-Puc-423426:24 CBC with auto diff (58111) Comments: PATIENT WAS FASTINGPERFORMED BY: LabCoRobert Wood Johnson [facility] Hospital at RahwayDdfvnz4426 [facility] [id number] Immature Grans (Abs) 0.0 {x10E3/uL} (Normal) Range: [...] {x10E3/uL} (Normal) Range: 3.4-10.8 :24 LIPID PANEL (72401) Comments: PATIENT WAS FASTINGPERFORMED BY: [employer]70 [facility] [id number] LDL/HDL Ratio 0.7 {ratio_units} (Normal) Range: 0.0-3.2 [...] PANEL, COMPREHENSIVE Comments: PATIENT WAS FASTINGPERFORMED BY: [facility]6370 [facility] [id number] (18346) ALT (SGPT) 15 [iU]/L (Normal) Range: 0-32 [...] Glucose, Serum 114 mg/dL (Abnormal) Range: 65-99 2-Kut-379820:24 HGB A1C (47844) Comments: PATIENT WAS FASTINGPERFORMED BY: LabCoRobert Wood Johnson [facility] Hospital at RahwaySsmyhq3427 [facility] [id number] Hemoglobin A1c 6.5 % (Abnormal) Range: 4.8-5.6 Comments: . Pre-diabetes: 5.7 - 6.4 Diabetes: >6.4 Glycemic control for adults with diabetes: <7.0 5-Sve-230057:39 HgA1C , Office (97945) HgA1C , Office 6.1 % (Normal) Range: 4.6 - 7.1 8-Mdc-414401:44 INR Fingerstick Comments: [place] [address] [place] [address] INR ISTAT 2.00 (Normal) Comments: Critical Value > 3.5; ADDENDA: managed by cardio 8-Smz-735707:44 Prothrombin Time Fingerstick Comments: [place] [address] [place] [address] PROTIME ISTAT 22.8 {SEC} (Abnormal) Range: 11.9-14.4 Comments: Reference Range 11.9 - 14.4 80-Duz-143665:15 INR Fingerstick Comments: [place] [address] [place] [address] INR ISTAT 2.40 (Normal) Comments: Critical Value > 3.5 27-Prp-815819:15 Prothrombin Time Fingerstick Comments: [facility] Jkaw[address] [place] [address] PROTIME ISTAT 27.3 {SEC} (Abnormal) Range: 11.9-14.4 Comments: Reference Range 11.9 - 14.4 34-Ndv-733101:13 Clostridium difficile Comments: PATIENT NOT FASTINGPERFORMED BY: [address] [id number] Information: SRC:ST Toxin A+B, EIA (87793) C difficile Toxins A+B, EIA Negative (Normal) 31-Kqb-162052:20 Lipase (28176) Comments: PATIENT NOT FASTINGPERFORMED BY: [address] [id number] Lipase, Serum 77 U/L (Abnormal) Range: 0-59 12-Uvy-361400:20 Amylase (24634) Comments: PATIENT NOT FASTINGPERFORMED BY: [address] [id number] Amylase, Serum 58 U/L (Normal) Range: 31-124 43-Ojs-122152:20 TSH (70964) Comments: PATIENT NOT FASTINGPERFORMED BY: [address] [id number] TSH 1.390 {uIU/mL} (Normal) Range: 0.450-4.500 51-Ebg-779025:20 CBC W/AUTO DIFF WBC (41142) Comments: PATIENT NOT FASTINGPERFORMED BY: [address] [id number] Immature Grans (Abs) 0.0 {x10E3/uL} (Normal) Range: [...] 3.77-5.28 WBC 8.1 {x10E3/uL} (Normal) Range: 3.4-10.8 29-Dpw-321593:20 METABOLIC PANEL, COMPREHENSIVE Comments: PATIENT NOT FASTINGPERFORMED BY: LabCoRobert Wood Johnson [facility] Hospital at RahwayYwtipi6740 [facility] [id number] (44566) ALT (SGPT) 16 [iU]/L (Normal) Range: 0-32 [...] Glucose, Serum 97 mg/dL (Normal) Range: 65-99 33-Zxi-990798:27 Urinalysis, Office (47222) UA - LEUKOCYTE ESTERASE Small (Normal) UA - NITRITE Negative (Normal) URINE UROBILINGN AGNES TIMED Normal mg/dL (Normal) UA - PROTEIN Negative mg/dL (Normal) UA - PH 6 (Abnormal) UA - BLOOD non-hemolyzed trace (Normal) UA - SPECIFIC GRAVITY 1.025 (Normal) UA - KETONES Negative mg/dL (Normal) UA - BILIRUBIN Negative (Normal) UA - GLUCOSE Negative (Normal) 81-Vxf-022065:54 URINE KRISTINA CULTURE (AGNES Comments: PATIENT NOT FASTINGPERFORMED BY: [facility]ostaAl[facility] [id number] Information: SRC:MARK COL COUNT) (62024) Result 1 NG36 (Normal) Comments: No growth in 36 - 48 hours. Urine Culture,Comprehensive Final report (Normal) 8-Vog-682967:06 Microscopic Examination Comments: PATIENT NOT FASTINGPERFORMED BY: Nomos Softwareblin [place] [id number] Bacteria Few (Normal) Mucus Threads Present (Normal) Cast Type Hyaline casts (Normal) Casts Present {/lpf} (Abnormal) Epithelial Cells (non renal) 0-10 {/hpf} (Normal) Range: 0 - 10 RBC 3-10 {/hpf} (Abnormal) Range: 0 - 2 WBC 11-30 {/hpf} (Abnormal) Range: 0 - 5 5-Glp-064750:06 URINALYSIS, W/ MICRO Comments: PATIENT NOT FASTINGPERFORMED BY: [facility] [id number] Information: SRC: ([id number]) Microscopic Examination See below: (Normal) Comments: Microscopic was indicated and was performed. Nitrite, Urine Negative (Normal) Urobilinogen,Semi-Qn 0.2 mg/dL (Normal) Range: 0.2-1.0 Bilirubin Negative (Normal) Occult Blood Negative (Normal) Ketones Negative (Normal) Glucose Negative (Normal) Protein Negative (Normal) WBC Esterase 3+ (Abnormal) Appearance Clear (Normal) Urine-Color Yellow (Normal) pH 5.5 (Normal) Range: 5.0-7.5 Specific [place] 1.023 (Normal) Range: 1.005-1.030 9-Gjd-691570:06 URINE KRISTINA CULTURE (AGNES COL Comments: PATIENT NOT FASTINGPERFORMED BY: [facility] [id number] COUNT) (05724) Antimicrobial MIHEAD (Normal) Comments: S = Susceptible; [...] primarily for treating urinary tract infections. (CLSI, [id number],2009) Result 2 ECV (Abnormal) Comments: Escherichia coli, identified by an automated biochemical system.2,000 Colonies/mL Result 1 Serratia marcescens Comments: Greater than 100,000 colony forming units per mL (Abnormal) Urine Final report Culture,Comprehensive (Abnormal) 0-Kni-021942:27 CALCULUS CHEMICAL QUANTI Comments: PATIENT NOT FASTINGPERFORMED BY: [employer] [address] [id number] ([id number]) Please note: SPRCS (Normal) Comments: Calculi report without photograph will follow via computer, mail,or roulette dealer delivery.Physician questions regarding Calculi Analysis contact [employer] at:[phone].This test was developed and its perfor mile characteristicsdetermined by [employer]. It has not been cleared or approvedby the Food and Drug Administration. Nidus CORCAM (Normal) Comments: Nidus composed of Calcium oxalate monohydrate. Calcium phosphate 03 % (Normal) Ca oxalate monohydr. 97 % (Normal) Composition SPRCS (Normal) Comments: Percentage (Represents the % composition) Weight 45.0 mg (Normal) Size 5x4x2 mm (Normal) Color Brown (Normal) 1-Sos-355496:59 Metabolic Panel, Basic (78871) Comments: PATIENT NOT FASTINGPERFORMED BY: LabAdaptlyRobert Wood Johnson University Hospital at RahwayQttaoh0645 [facility] [id number] Calcium, Serum 9.5 mg/dL (Normal) Range: 8.7-10.3 [...] Glucose, Serum 127 mg/dL (Abnormal) Range: 65-99 6-Sub-429270:59 CBC W/AUTO DIFF WBC (09826) Comments: PATIENT NOT FASTINGPERFORMED BY: [facility] Vzgcyz5985 [facility] [id number] Immature Grans (Abs) 0.0 {x10E3/uL} (Normal) Range: [...] 3.77-5.28 WBC 10.0 {x10E3/uL} (Normal) Range: 3.4-10.8 47-Nmw-501216:40 Basic Metabolic Profile (BMP) Comments: [facility] Luhaeinipw[address] [place], [place], [id number] GAP 11 (Normal) Range: 5-15 CO2 26.0 [...] A.D.A. criteria. :40 CBC W/Diff, Automated Comments: [facility] Ultnmwjlkd225[address] [place], [place], [id number] Absolute Lymph 1.94 {X10_3/ul} (Normal) Range: 0.83-4.51 [...] Date: 08/28/16Order Date: 08/28/16How was Urine Obtained? [facility] Hgpailjujs5523 [place], [place], [id number] MUCUS, URINE 1+ {/hpf} (Normal) BACTERIA 1+ [...] (Normal) CLARITY Cloudy (Normal) COLOR Yellow (Normal) 27-Obx-931304:55 URINE KRISTINA CULTURE-IDENTIFICATN Comments: PATIENT NOT FASTINGPERFORMED BY: LabCoRobert Wood Johnson [facility] Hospital at RahwayXuplam4485 [facility] [id number] Information: SRC:MARK ([id number]) Result 1 MUG (Normal) Comments: Mixed urogenital flora25,000-50,000 colony forming units per mL Urine Final report (Normal) Culture,Comprehensive 94-Esf-203173:29 PT (Prothrobim Time) (31028) Comments: PATIENT NOT FASTINGPERFORMED BY: [facility] Rnmqxs3069 [facility] [id number] Prothrombin Time 28.5 {sec} (Abnormal) Range: 9.1-12.0 INR 2.8 (Abnormal) Range: 0.8-1.2 Comments: Reference interval is for non-anticoagulated patients. . Suggested INR therapeutic range for Vitamin K anta gonist therapy: Standard Dose (moderate intensity therapeutic range): 2.0 - 3.0 Higher intensity therapeutic range 2.5 - 3.5 30-Klr-081992:44 Urinalysis, Office (92894) UA - LEUKOCYTE ESTERASE Trace (Normal) UA - NITRITE Negative (Normal) URINE UROBILINGN AGNES TIMED Normal mg/dL (Normal) UA - PROTEIN 100 mg/dL (Normal) UA - PH 6 (Abnormal) UA - BLOOD Hemolyzed Large (Normal) UA - SPECIFIC GRAVITY 1.025 (Normal) UA - KETONES Small mg/dL (Normal) UA - BILIRUBIN Small (Normal) UA - GLUCOSE Negative (Normal) 08-Hcf-751858:23 INR Fingerstick Comments: [facility] [address]je[address] [place] [address] INR ISTAT 2.80 (Normal) Comments: Critical Value > 3.5; ADDENDA: managed by cardio 96-Tdq-517836:23 Prothrombin Time Fingerstick Comments: [facility] Xukm[address] [place] [address] PROTIME ISTAT 32.1 {SEC} (Abnormal) Range: 11.9-14.4 Comments: Reference Range 11.9 - 14.4 7-Wir-298544:30 INR Fingerstick Comments: [facility] Dpqb[address] [place] [address] INR ISTAT 3.30 (Normal) Comments: Critical Value > 3.5 1-Rtf-486426:30 Prothrombin Time Fingerstick Comments: [facility] Quot[address] [place] [address] PROTIME ISTAT 37.8 {SEC} (Abnormal) Range: 11.9-14.4 Comments: Reference Range 11.9 - 14.4 9-Jvg-881434:17 CBC W/AUTO DIFF WBC (09858) Comments: PATIENT WAS FASTINGPERFORMED BY: [facility] Lysulq8735 [facility] [id number] Immature Grans (Abs) 0.0 {x10E3/uL} (Normal) Range: [...] 3.77-5.28 WBC 8.7 {x10E3/uL} (Normal) Range: 3.4-10.8 8-Rkb-258663:17 METABOLIC PANEL, COMPREHENSIVE Comments: PATIENT WAS FASTINGPERFORMED BY: LabCoOnzoSndrda8775 [facility] [id number]; non- emergent till apt (28967) ALT (SGPT) 18 [iU]/L (Normal) Range: 0-32 [...] Glucose, Serum 110 mg/dL (Abnormal) Range: 65-99 3-Fvi-252904:17 TSH (29695) Comments: PATIENT WAS FASTINGPERFORMED BY: [employer] LabCoOnzoUsmnnr9350 [facility] [id number] TSH 1.190 {uIU/mL} (Normal) Range: 0.450-4.500 7-Rhy-202168:17 LIPID PANEL (54551) Comments: PATIENT WAS FASTINGPERFORMED BY: [facility] Vjpxkn5547 Aditya EspitiaAt[facility] [id number] LDL/HDL Ratio 0.7 {ratio_units} (Normal) Range: 0.0-3.2 Comments: LDL/HDL Ratio Men Women 1/2 Avg.Risk 1.0 1.5 Av g.Risk 3.6 3.2 2X Avg.Risk 6.2 5.0 3X Avg.Risk 8.0 6.1 LDL Cholesterol Calc 36 mg/dL (Normal) Range: 0-99 VLDL Cholesterol Drew 18 mg/dL (Normal) Range: 5-40 HDL Cholesterol 54 mg/dL (Normal) Triglycerides 91 mg/dL (Normal) Range: 0-149 Cholesterol, Total 108 mg/dL (Normal) Range: 100-199 1-Rdu-739758:46 INR Fingerstick Comments: [facility] [address] [place] [address] INR ISTAT 1.90 (Normal) Comments: Critical Value > 3.5; ADDENDA: cardio manages 2-Pax-161118:46 Prothrombin Time Fingerstick Comments: [address] [place] [address] PROTIME ISTAT 22.4 {SEC} (Abnormal) Range: 11.9-14.4 Comments: Reference Range 11.9 - 14.4 71-Dms-862850:56 INR Fingerstick Comments: [address] [place] [address] INR ISTAT 2.20 (Normal) Comments: Critical Value > 3.5 :56 Prothrombin Time Fingerstick Comments: [address] [place] [place] [address] PROTIME ISTAT 25.9 {SEC} (Abnormal) Range: 11.9-14.4 Comments: Reference Range 11.9 - 14.4 95-Bno-996957:54 INR Fingerstick Comments: [facility] Zucy[address] [place], [place] [address] INR ISTAT 1.80 (Normal) Comments: Critical Value > 3.5; ADDENDA: handled by cardio 62-Vof-740976:54 Prothrombin Time Fingerstick Comments: [facility] [address]sp[address] [place] [address] PROTIME ISTAT 21.4 {SEC} (Abnormal) Range: 11.9-14.4 Comments: Reference Range 11.9 - 14.4 62-Gau-613360:04 LIPID PANEL (79739) Comments: PATIENT WAS FASTINGPERFORMED BY: [facility] SoftwareAtrium [facility] [id number] LDL/HDL Ratio 0.9 {ratio_units} (Normal) Range: 0.0-3.2 Comments: LDL/HDL Ratio Men Women 1/2 Avg.Risk 1.0 1.5 Av g.Risk 3.6 3.2 2X Avg.Risk 6.2 5.0 3X Avg.Risk 8.0 6.1 LDL Cholesterol Calc 43 mg/dL (Normal) Range: 0-99 VLDL Cholesterol Drew 19 mg/dL (Normal) Range: 5-40 HDL Cholesterol 50 mg/dL (Normal) Triglycerides 96 mg/dL (Normal) Range: 0-149 Cholesterol, Total 112 mg/dL (Normal) Range: 100-199 01-Ppu-976131:04 CBC with auto diff (24584) Comments: PATIENT WAS FASTINGPERFORMED BY: [employer]70 BurgessAlpine Data LabsAtrium Health [facility] [id number] Immature Grans (Abs) 0.0 {x10E3/uL} (Normal) Range: [...] 3.77-5.28 WBC 7.7 {x10E3/uL} (Normal) Range: 3.4-10.8 09-Plh-079629:04 METABOLIC PANEL, COMPREHENSIVE Comments: PATIENT WAS FASTINGPERFORMED BY: LabCoRobert Wood Johnson University Hospital at RahwayZzqrun1757 [facility] [id number] (64207) ALT (SGPT) 19 [iU]/L (Normal) Range: 0-32 [...] Glucose, Serum 104 mg/dL (Abnormal) Range: 65-99 67-Euo-890186:04 MICROALBUMIN: CREATININE RATIO Comments: PATIENT WAS FASTINGPERFORMED BY: [facility] SoftwareAtrium [facility] [id number] (28962) AND (91200) Microalb/Creat Ratio 6.2 {mg/g_creat} (Normal) Range: 0.0-30.0 Microalbumin, Urine 4.0 ug/mL (Normal) Creatinine, Urine 64.3 mg/dL (Normal) 54-Baq-687229:04 HGB A1C (68860) Comments: PATIENT WAS FASTINGPERFORMED BY: [facility] SoftwareAtrium [facility] [id number] Hemoglobin A1c 6.4 % (Abnormal) Range: 4.8-5.6 Comments: . Pre-diabetes: 5.7 - 6.4 Diabetes: >6.4 Glycemic control for adults with diabetes: <7.0 16-Wap-886566:04 LOUANN (ANTINUCLEAR ANTIBODY) Comments: PATIENT WAS FASTINGPERFORMED BY: [employer] [facility] [id number] (18220) LOUANN Direct Negative (Normal) 73-Kyq-702571:04 RHEUMATOID FACTOR-QUANT (41492) Comments: PATIENT WAS FASTINGPERFORMED BY: [facility] SoftwareAtrium Health [facility] [id number] RA Latex Turbid. <10.0 {IU/mL} (Normal) Range: 0.0-13.9 83-Ggd-848425:04 C-REACTIVE PROTEIN (96330) Comments: PATIENT WAS FASTINGPERFORMED BY: HighGround RoadDublin [place] [id number] C-Reactive Protein, Quant 0.4 mg/L (Normal) Range: 0.0-4.9 72-Lrb-876706:04 SED RATE ERYTHROCYTE (88681) Comments: PATIENT WAS FASTINGPERFORMED BY: [facility] Etwilk0901 [facility] [id number] Sedimentation Rate-[facility] Hospitalren 11 mm/h (Normal) Range: 0-40 :23 INR Fingerstick Comments: [facility] [place] [address] [place] [address] INR ISTAT 2.50 (Normal) Comments: Critical Value > 3.5 :23 Prothrombin Time Fingerstick Comments: [facility] [place] [address] [place] [address] PROTIME ISTAT 28.8 {SEC} (Abnormal) Range: 11.9-14.4 Comments: Reference Range 11.9 - 14.4 8-Yqn-677681:15 INR Fingerstick Comments: [facility] [place] [address] [place] [address] INR ISTAT 2.50 (Normal) Comments: Critical Value > 3.5; ADDENDA: cardio manages 9-Pse-996958:15 Prothrombin Time Fingerstick Comments: [facility] [place] [address] [place] [address] PROTIME ISTAT 28.8 {SEC} (Abnormal) Range: 11.9-14.4 Comments: Reference Range 11.9 - 14.4 16-Nki-205358:30 INR Fingerstick Comments: [facility] [place] [address] [place] [address] INR ISTAT 1.80 (Normal) Comments: Critical Value > 3.5; ADDENDA: cardio handles 93-Iaj-163467:30 Prothrombin Time Fingerstick Comments: [facility] [place] [address] [place] [address] PROTIME ISTAT 20.9 {SEC} (Abnormal) Range: 11.9-14.4 Comments: Reference Range 11.9 - 14.4 :08 INR Fingerstick Comments: [facility] [address] [place] [address] INR ISTAT 1.80 (Normal) Comments: Critical Value > 3.5; ADDENDA: cardio manages her INR's :08 Prothrombin Time Fingerstick Comments: [facility] [place] [address] [place] [address] PROTIME ISTAT 21.2 {SEC} (Abnormal) Range: 11.9-14.4 Comments: Reference Range 11.9 - 14.4 :55 CBC with auto diff Comments: PATIENT NOT FASTINGPERFORMED BY: LabCoRobert Wood Johnson [facility] Hospital at RahwayInqtrs6190 [facility] [id number] Information: NURSE DRAW (86196) Immature Grans (Abs) 0.0 {x10E3/uL} (Normal) Range: [...] 3.77-5.28 WBC 8.9 {x10E3/uL} (Normal) Range: 3.4-10.8 3-Hvx-154356:55 METABOLIC PANEL, COMPREHENSIVE Comments: PATIENT NOT FASTINGPERFORMED BY: [facility] Dlnjwm5845 [facility] [id number]; non- emergent till apt (84280) ALT (SGPT) 17 [iU]/L (Normal) Range: 0-32 [...] Glucose, Serum 123 mg/dL (Abnormal) Range: 65-99 9-Lle-955513:55 MICROALBUMIN: CREATININE RATIO Comments: PATIENT NOT FASTINGPERFORMED BY: LabCoRobert Wood Johnson [facility] Hospital at RahwaySpyjhr7455 [facility] [id number] (32421) AND (11141) Microalb/Creat Ratio <6.1 {mg/g_creat} (Normal) Range: 0.0-30.0 Microalbumin, Urine <3.0 ug/mL (Normal) Creatinine, Urine 48.8 mg/dL (Normal) 47-Pjs-839438:25 HgA1C , Office (77584) HgA1C , Office 6.2 % (Normal) Range: 4.6 - 7.1 4-Lut-584937:39 INR Fingerstick Comments: [address] [place] [address] INR ISTAT 2.10 (Normal) Comments: Critical Value > 3.5; ADDENDA: INR are managed by cardio :39 Prothrombin Time Fingerstick Comments: [address] [place] [address] PROTIME ISTAT 24.2 {SEC} (Abnormal) Range: 11.9-14.4 Comments: Reference Range 11.9 - 14.4 :03 INR Fingerstick Comments: [place] [address] [place] [address] INR ISTAT 1.70 (Normal) Comments: Critical Value > 3.5 98-Yqi-648480:03 Prothrombin Time Fingerstick Comments: [facility] [place] [address] [place], [place] [id number] PROTIME ISTAT 19.6 {SEC} (Abnormal) Range: 11.9-14.4 Comments: Reference Range 11.9 - 14.4 11-Iuu-608062:00 INR Fingerstick Comments: [facility] [place] [address] [place], [place] [address](867) INR ISTAT 3.40 (Normal) Comments: Critical Value > 3.5; ADDENDA: cardio aware of her INR :00 Prothrombin Time Fingerstick Comments: [facility] [place] [address] [place] [address]( PROTIME ISTAT 38.5 {SEC} (Abnormal) Range: 11.9-14.4 Comments: Reference Range 11.9 - 14.4 :02 Prothrombin Time w/INR Comments: Result obtained is for confirmation testing ofFingerstick PT/INR Specimen # [id number] . 12/15/15 1108 VSICKTHIS CONFIRMATION SPECIMEN RESULT IS FROM VENOUS BLOOD.[place] [address] [place], [address] INR 3.3 (Normal) Comments: ADDENDA: left detailed message with heart group nurse line to make sure was addressed by them PROTIME 32.7 s (Abnormal) Range: 11.7-14.9 34-Irr-969501:48 INR Fingerstick Comments: [facility] [place] [address] [place] [address] INR ISTAT 3.90 (Abnormal) Comments: Critical Value > 3.5 :48 Prothrombin Time Fingerstick Comments: [facility] [place] [address] [place] [address]( PROTIME ISTAT 44.3 {SEC} (Abnormal) Range: 11.9-14.4 Comments: Reference Range 11.9 - 14.4 90-Vvo-723652:42 INR Fingerstick Comments: [facility] [place] [address] [place] [address] INR ISTAT 2.50 (Normal) Comments: Critical Value > 3.5 :42 Prothrombin Time Fingerstick Comments: [place] [address] [place] [address] PROTIME ISTAT 28.9 {SEC} (Abnormal) Range: 11.9-14.4 Comments: Reference Range 11.9 - 14.4 72-Voh-831842:26 INR Fingerstick Comments: [place] [address] [place] [address] INR ISTAT 3.00 (Normal) Comments: Critical Value > 3.5; ADDENDA: handled by cardio 78-Afr-239873:26 Prothrombin Time Fingerstick Comments: [address] [place] [address] PROTIME ISTAT 34.4 {SEC} (Abnormal) Range: 11.9-14.4 Comments: Reference Range 11.9 - 14.4 :54 INR Fingerstick Comments: [place] [address] [place] [address] INR ISTAT 1.70 (Normal) Comments: Critical Value > 3.5; ADDENDA: handled by shey :54 Prothrombin Time Fingerstick Comments: [address] [address] PROTIME ISTAT 20.0 {SEC} (Abnormal) Range: 11.9-14.4 Comments: Reference Range 11.9 - 14.4 03-Xlt-867328:39 CBC W/AUTO DIFF WBC Comments: PATIENT WAS FASTINGPERFORMED BY: [facility] Erhkgw0253 [facility] [id number] Information: [id number] CC:[id number] ([id number]) Immature Grans (Abs) 0.0 {x10E3/uL} (Normal) Range: [...] 3.77-5.28 WBC 8.3 {x10E3/uL} (Normal) Range: 3.4-10.8 06-Ufg-502557:39 METABOLIC PANEL, COMPREHENSIVE Comments: PATIENT WAS FASTINGPERFORMED BY: [facility]CoRobert [facility] Johnson [facility] at RahwayRjsapy1872 [facility] [id number] (33123) ALT (SGPT) 16 [iU]/L (Normal) Range: 0-32 [...] Glucose, Serum 100 mg/dL (Abnormal) Range: 65-99 47-Vxp-123473:39 LIPID PANEL (26076) Comments: PATIENT WAS FASTINGPERFORMED BY: [employer]70 [facility] [id number] LDL/HDL Ratio 0.6 {ratio_units} (Normal) Range: 0.0-3.2 [...] Cholesterol, Total 112 mg/dL (Normal) Range: 100-199 48-Axk-500252:39 TSH (44149) Comments: PATIENT WAS FASTINGPERFORMED BY: [facility] [id number] TSH 1.210 {uIU/mL} (Normal) Range: 0.450-4.500 58-Rdc-930504:54 HgA1C , Office (89696) HgA1C , Office 6.4 % (Normal) Range: 4.6 - 7.1 06-Bnh-175809:58 INR Fingerstick Comments: [place] [address] [place] [address] INR ISTAT 2.50 (Normal) Comments: Critical Value > 3.5 :58 Prothrombin Time Fingerstick Comments: [address] [place] [address] PROTIME ISTAT 29.2 {SEC} (Abnormal) Range: 11.9-14.4 Comments: Reference Range 11.9 - 14.4 :19 Prothrombin Time w/INR Comments: [place] [address] [place], [address] INR 2.9 (Normal) Comments: ADDENDA: handled by cardio PROTIME 30.0 s (Abnormal) Range: 11.7-14.9 :46 INR Fingerstick Comments: [place] [address] [place] [address] INR ISTAT 1.40 (Normal) Comments: Critical Value > 3.5 :46 Prothrombin Time Fingerstick Comments: [address] [place] [address] PROTIME ISTAT 16.5 {SEC} (Abnormal) Range: 11.9-14.4 Comments: Reference Range 11.9 - 14.4; ADDENDA: handled by cardio :14 INR Fingerstick Comments: [place] [address] [place] [address] INR ISTAT 3.50 (Normal) Comments: Critical Value > 3.5 2-Cso-534307:14 Prothrombin Time Fingerstick Comments: [facility] [address]ww[address] [place], [place] [address] PROTIME ISTAT 39.1 {SEC} (Abnormal) Range: 11.9-14.4 Comments: Reference Range 11.9 - 14.4 :29 CBC W/AUTO DIFF WBC Comments: PATIENT WAS FASTINGPERFORMED BY: LabCoLovelace Women's HospitalYzkjsx3402 [facility] [id number] Information: [id number] (62027) Immature Grans (Abs) 0.0 {x10E3/uL} (Normal) Range: [...] {x10E3/uL} (Normal) Range: 3.4-10.8 :29 LIPID PANEL (37371) Comments: PATIENT WAS FASTINGPERFORMED BY: [facility] [id number] LDL/HDL Ratio 0.8 {ratio_units} (Normal) Range: 0.0-3.2 [...] 118 mg/dL (Normal) Range: 100-199 :29 TSH (24258) Comments: PATIENT WAS FASTINGPERFORMED BY: [facility] [id number] TSH 1.780 {uIU/mL} (Normal) Range: 0.450-4.500 86-Kvi-021017:29 METABOLIC PANEL, COMPREHENSIVE Comments: PATIENT WAS FASTINGPERFORMED BY: [address] [id number] (80253) ALT (SGPT) 16 [iU]/L (Normal) Range: 0-32 [...] Glucose, Serum 110 mg/dL (Abnormal) Range: 65-99 81-Mzp-925003:29 MICROALBUMIN: CREATININE RATIO Comments: PATIENT WAS FASTINGPERFORMED BY: EdvertRobert Wood Johnson [facility] Hospital at RahwayUnogxs7835 [facility] [id number] (76389) AND (40869) Microalb/Creat Ratio 21.5 {mg/g_creat} (Normal) Range: 0.0-30.0 Microalbumin, Urine 29.6 ug/mL (Abnormal) Range: 0.0-17.0 Creatinine, Urine 137.4 mg/dL (Normal) Range: 15.0-278.0 49-Atx-586876:29 Hemoglobin Glyclated (HGB A1C) Comments: PATIENT WAS FASTINGPERFORMED BY: EdvertRobert Wood Johnson [facility] Hospital at RahwayXvaouz7063 [facility] [id number] (42877) Hemoglobin A1c 6.2 % (Abnormal) Range: 4.8-5.6 Comments: . Pre-diabetes: 5.7 - 6.4 Diabetes: >6.4 Glycemic control for adults with diabetes: <7.0 63-Wtr-624491:39 INR Fingerstick Comments: [facility] [address] [place], [place], [id number] INR ISTAT 3.20 (Normal) Comments: Critical Value > 3.5 22-Xrl-239050:39 Prothrombin Time Fingerstick Comments: [facility] [address] [place], [address] PROTIME ISTAT 36.2 {SEC} (Abnormal) Range: 11.9-14.4 Comments: Reference Range 11.9 - 14.4 72-Byg-380799:55 Prothrombin Time w/INR Comments: Test performed at:[facility] [address]svcy[address] [place] [address] INR 2.0 (Normal) PROTIME 23.1 s (Abnormal) Range: 11.7-14.9 86-Hiu-668916:32 Prothrombin Time w/INR Comments: Test performed at:[facility] [address] [place] [address] ; managed by shey INR 3.1 (Normal) PROTIME 31.4 s (Abnormal) Range: 11.7-14.9 3-Rqt-834721:15 INR Fingerstick Comments: Test performed at:[facility] [address] [place] [address] INR ISTAT 2.80 (Normal) Comments: Critical Value > 3.5; ADDENDA: cardio handles 8-Qsx-859352:15 Prothrombin Time Fingerstick Comments: Test performed at:[facility] [address] [place] [address] PROTIME ISTAT 31.9 {SEC} (Abnormal) Range: 11.9-14.4 Comments: Reference Range 11.9 - 14.4 56-Plh-186973:27 METABOLIC PANEL, Comments: PATIENT WAS FASTINGPERFORMED BY: LabCoRobert [facility] Johnson [facility] Hospital at RahwayNglvpc1652 [facility] [id number] Information: [id number] COMPREHENSIVE (41227) ALT (SGPT) 18 [iU]/L (Normal) Range: 0-32 [...] Glucose, Serum 106 mg/dL (Abnormal) Range: 65-99 98-Aty-465000:27 LIPID PANEL (35751) Comments: PATIENT WAS FASTINGPERFORMED BY: LabCoRobert [facility] Johnson [facility] Hospital at RahwayIqmsqi2511 [facility] [id number] LDL/HDL Ratio 0.8 {ratio_units} (Normal) Range: 0.0-3.2 [...] - 169 >19 years 100 - 199 50-Nvl-951340:27 TSH (26930) Comments: PATIENT WAS FASTINGPERFORMED BY: [employer] Bbbcyd3501 [facility] [id number] TSH 1.500 {uIU/mL} (Normal) Range: 0.450-4.500 91-Pzh-624881:23 Comp. Metabolic Panel Comments: PATIENT NOT FASTINGPERFORMED BY: EdvertRobert Wood Johnson [facility] Hospital at RahwayVbxkdb4081 [facility] [id number] Information: [id number]; will review at 12/18 appt (14) ALT [...] Glucose, Serum 112 mg/dL (Abnormal) Range: 65-99 06-Gtx-037213:23 Lipid Panel With LDL/HDL Comments: PATIENT NOT FASTINGPERFORMED BY: Edvert Ncuoyy7462 [facility] [id number] Ratio LDL/HDL Ratio 0.7 {ratio_units} (Normal) Range: [...] Cholesterol, Total 110 mg/dL (Normal) Range: 100-199 98-Rtn-823941:23 Microalb/Creat Ratio, Randm Ur Comments: PATIENT NOT FASTINGPERFORMED BY: Edvert Uayhqb9702 [facility] [id number] Microalb/Creat Ratio 8.3 {mg/g_creat} Range: 0.0-30.0 (Normal) Microalbumin, Urine 9.2 ug/mL (Normal) Range: 0.0-17.0 Creatinine, Urine 111.3 mg/dL (Normal) Range: 15.0-278.0 12-Dec-2014 TSH 1.580 {uIU/mL} Comments: PATIENT NOT FASTINGPERFORMED BY: EdvertRobert Wood Johnson [facility] Hospital at RahwayPqaueg4396 [facility] [id number] 11:23 (Normal) Range: 0.450-4.500 3-Rkd-192481:07 Prothrombin Time w/INR Comments: [facility] performed at[facility] [address] [place] [address] INR 2.9 (Normal) PROTIME 29.9 s (Abnormal) Range: 11.7-14.9 26-Pfb-873357:52 INR Fingerstick Comments: Test performed at:[facility] [address] [place] [address] INR ISTAT 3.10 (Normal) Comments: Critical Value > 3.5 :52 Prothrombin Time Fingerstick Comments: Test performed at:[facility] [address] [place] [address] PROTIME ISTAT 35.1 {SEC} (Abnormal) Range: 11.9-14.4 Comments: Reference Range 11.9 - 14.4 31-Htg-293613:45 Prothrombin Time w/INR Comments: Test performed at:[facility] [address] [place] [address] INR 2.1 (Normal) PROTIME 23.6 s (Abnormal) Range: 11.7-14.9 83-Ayd-604574:00 Prothrombin Time w/INR Comments: Result obtained is for confirmation testing ofFingerstick PT/INR Specimen # [id number] . 09/25/14 1207 [facility] CONFIRMATION SPECIMEN RESULT IS FROM VENOUS BLOOD.Test performed at:[facility] Dekhvrpdbd4307 [facility] [place] [address] INR 4.0 (Abnormal) Comments: RESULTS CALLED TO RAHAT WERNER 09/25/14 Martin Plasencia.REPORT READ BACK BY SAME.; ADDENDA: handled by cardio and they were notified. PROTIME 38.9 s (Abnormal) Range: 11.7-14.9 98-Xdu-921247:48 INR Fingerstick Comments: Test performed at:[facility] [address] [place] [address] INR ISTAT 4.30 (Abnormal) Comments: Critical Value > 3.5; ADDENDA: Dr. Robles handles and Felisa aware of results. 40-Oof-864610:48 Prothrombin Time Fingerstick Comments: Test performed at:[facility] G[address]batciv[address] [facility] [place] [address] PROTIME ISTAT 48.2 {SEC} (Abnormal) Range: 11.9-14.4 Comments: Reference Range 11.9 - 14.4 12-Uux-331749:02 HgA1C , Office (81883) HgA1C , Office 6.3 % (Normal) Range: 4.6 - 7.1 0-Xfl-816622:22 INR Fingerstick Comments: Test performed at:[facility] [address] [place] [address] INR ISTAT 2.60 (Normal) Comments: Critical Value > 3.5; ADDENDA: Ordered by Dorian chu at [facility] office of result 7-Fwn-059355:22 Prothrombin Time Fingerstick Comments: Test performed at:[facility] [address] [place] [address] PROTIME ISTAT 30.4 {SEC} (Abnormal) Range: 11.9-14.4 Comments: Reference Range 11.9 - 14.4 87-Kst-138691:19 INR Fingerstick Comments: Test performed at:[facility] [address] [place] [address] INR ISTAT 3.20 (Normal) Comments: Critical Value > 3.5 :19 Prothrombin Time Fingerstick Comments: Test performed at:[facility] [address] [place] [address] PROTIME ISTAT 36.2 {SEC} (Abnormal) Range: 11.9-14.4 Comments: Reference Range 11.9 - 14.4 02-Cco-032688:11 CBC W/AUTO DIFF WBC Comments: PATIENT WAS FASTINGPERFORMED BY: [facility] Irsxhp1285 [address] [place] [id number] Information: [id number] CC:[id number] (90673) Immature Grans (Abs) 0.0 {x10E3/uL} (Normal) Range: [...] 3.77-5.28 WBC 7.9 {x10E3/uL} (Normal) Range: 3.4-10.8 32-Rhy-798844:11 METABOLIC PANEL, COMPREHENSIVE Comments: PATIENT WAS FASTINGPERFORMED BY: LabCoRobert Wood Johnson [facility] Hospital at RahwayRcscbh2487 [facility] [id number]; will review at 08/20 (35378) ALT (SGPT) 19 [iU]/L (Normal) Range: 0-32 [...] Glucose, Serum 115 mg/dL (Abnormal) Range: 65-99 59-Lub-712059:11 LIPID PANEL (05161) Comments: PATIENT WAS FASTINGPERFORMED BY: [employer]70 [facility]At[facility] [id number] LDL/HDL Ratio 0.6 {ratio_units} (Normal) Range: 0.0-3.2 [...] Cholesterol, Total 114 mg/dL (Normal) Range: 100-199 29-Ipn-466065:11 TSH (24861) Comments: PATIENT WAS FASTINGPERFORMED BY: [employer]70 Qu[facility] TechnologiesAlleghany Health [id number] TSH 2.220 {uIU/mL} (Normal) Range: 0.450-4.500 01-Ran-243207:11 Vitamin D Hydroxy (81125) Comments: PATIENT WAS FASTINGPERFORMED BY: [facility] Orcvcc7316 [address] [place] [id number] Vitamin D, 25-Hydroxy 58.5 ng/mL (Normal) Range: 30.0-100.0 Comments: Vitamin D deficiency has been defined by the Mineral ofMedicine and an Endocrine Society practice guideline as alevel of serum 25-OH vitamin D less than 20 ng/mL (1,2).The Endocrine Society went on to further define vitamin Dinsufficiency as a level between 21 and 29 ng/mL (2).1. IOM (Mineral of Medicine). 2010. Dietary reference intakes for calcium and D. [place]: The National Academies Press.2. Isidro MF, Bella FLORES, Ron GAVIN, et al. Evaluation, treatment, and prevention of vitamin D deficiency: an Endocrine Society clinical practice guideline. JCEM. 2010; 96(7):1911-30. 46-Jkt-867678:04 HgA1C , Office (97652) HgA1C , Office 6.4 % (Normal) Range: 4.6 - 7.1 0-Scn-913861:35 IINR 2.80 (Normal) Comments: Critical Value> 3.5 9-Tji-269251:35 IPTF 32.1 {SEC} (Abnormal) Range: 11.9-14.4 Comments: Reference Range11.9 - 14.4 2-Bex-518483:40 PT Comments: Result obtained is for confirmation testing ofFingerstick PT/INR Specimen # [id number] . 02/08/14 1315 [id number] CONFIRMATION SPECIMEN RESULT IS FROM VENOUS BLOOD.This critical result is preliminary and n ot confirmed.Venous sample sent to main laboratory for confirmation.A call with confirmation result will follow.See specimen #:[id number][] for confirmation result.Preliminary critical result Call to/Read back by ?[].02/08/14 1310 DMAIBACH2. INR 3.2 (Normal) PTP 32.4 s (Abnormal) Range: 11.7-14.9 Comments: Please note revised PROTIME reference range eocuwknxv74/14/15. 3-Ntg-857830:32 IINR 3.60 (Abnormal) Comments: Critical Value> 3.5 :32 IPTF 40.7 {SEC} (Abnormal) Range: 11.9-14.4 Comments: Reference Range11.9 - 14.4 8-Ycs-223088:53 LIPID PANEL (61366) Comments: PATIENT WAS FASTINGPERFORMED BY: [facility] [id number] LDL/HDL Ratio 0.9 {ratio_units} (Normal) Range: 0.0-3.2 [...] MANUAL DIFF Comments: PATIENT WAS FASTINGPERFORMED BY: [facility] [id number] Information: [id number] (10253) Immature Grans (Abs) 0.0 {x10E3/uL} (Normal) Range: [...] 3.77-5.28 WBC 11.0 {x10E3/uL} (Abnormal) Range: 3.4-10.8 1-Gxk-056083:53 METABOLIC PANEL, COMPREHENSIVE Comments: PATIENT WAS FASTINGPERFORMED BY: LabCoRobert Wood Johnson [facility] Hospital at RahwayRcqjwn9547 [facility] [id number] (98419) ALT (SGPT) 14 [iU]/L (Normal) Range: 0-32 [...] URINE QUANT Comments: PATIENT WAS FASTINGPERFORMED BY: WisdomTreeRobert Wood Johnson [facility] Hospital at RahwayJkkpsu7725 [facility] [id number] (13919) Microalb/Creat Ratio 5.9 {mg/g_creat} (Normal) Range: 0.0-30.0 Microalbumin, Urine 14.4 ug/mL (Normal) Range: 0.0-17.0 Creatinine, Urine 245.9 mg/dL (Normal) Range: 15.0-278.0 :53 TSH (37716) Comments: PATIENT WAS FASTINGPERFORMED BY: EdvertRobert Wood Johnson [facility] Hospital at RahwayTitzcb7314 [facility] [id number] TSH 1.260 {uIU/mL} (Normal) Range: 0.450-4.500 :59 HgA1C , Office (99759) Comments: not fasting and was 107 Fasting this am HgA1C , Office 6.3 % (Normal) Range: 4.6 - 7.1 :58 Blood Glucose , Office (80687) Blood Glucose , Office 126 (Normal) Comments: non-fasting :4 IINR 2.90 (Normal) Comments: Critical Value> 3.5 0 :4 IPTF 32.7 {SEC} (Abnormal) Range: 11.9-14.4 0 Comments: Reference Range11.9 - 14.4 :08 METABOLIC PANEL, Comments: PATIENT WAS FASTINGPERFORMED BY: WidgetboxHenry [facility] Hospital6370 [facility] [id number] Information: [id number] CC:[id number] COMPREHENSIVE (92481) ALT (SGPT) 14 [iU]/L (Normal) Range: 0-32 [...] Glucose, Serum 98 mg/dL (Normal) Range: 65-99 40-Mja-967570:08 LIPID PANEL (54231) Comments: PATIENT WAS FASTINGPERFORMED BY: LabCoRobert Wood Johnson [facility] Hospital at RahwayGvbfpw8971 [facility] [id number] LDL/HDL Ratio 0.8 {ratio_units} (Normal) Range: 0.0-3.2 LDL Cholesterol Calc 50 mg/dL (Normal) Range: 0-99 VLDL Cholesterol Drew 15 mg/dL (Normal) Range: 5-40 HDL Cholesterol 59 mg/dL (Normal) Comments: According to ATP-III Guidelines, HDL-C >59 mg/dL is considered anegative risk factor for CHD. Triglycerides 73 mg/dL (Normal) Range: 0-149 Cholesterol, Total 124 mg/dL (Normal) Range: 100-199 60-Zdq-058197:08 TSH (07629) Comments: PATIENT WAS FASTINGPERFORMED BY: Edvert Jpaalz7959 [facility] [id number] TSH 1.220 {uIU/mL} (Normal) Range: 0.450-4.500 42-Vqu-065980:26 HgA1C , Office (15526) HgA1C , Office 6.4 % (Normal) Range: 4.6 - 7.1 99-Aec-889834:13 MICROALBUMIN: CREATININE RATIO Comments: PATIENT WAS FASTINGPERFORMED BY: Edvert Xheuob1285 [facility] [id number] (69362) AND (30987) Microalb/Creat Ratio 5.4 {mg/g_creat} (Normal) Range: 0.0-30.0 Microalbumin, Urine 4.7 ug/mL (Normal) Range: 0.0-17.0 Creatinine, Urine 87.4 mg/dL (Normal) Range: 15.0-278.0 81-Cta-451831:13 CBC WITH MANUAL DIFF Comments: PATIENT WAS FASTINGPERFORMED BY: EdvertRobert Wood Johnson [facility] Hospital at RahwayCulfxd8008 [facility] [id number] Information: [id number] CC:[id number] 1 (46657) Immature Grans (Abs) 0.0 {x10E3/uL} (Normal) Range: [...] 3.77-5.28 WBC 8.1 {x10E3/uL} (Normal) Range: 3.4-10.8 96-Yko-989349:13 METABOLIC PANEL, COMPREHENSIVE Comments: PATIENT WAS FASTINGPERFORMED BY: LabCoRobert Wood Johnson [facility] Hospital at RahwayZgfnoh7305 [facility] [id number] (00111) ALT (SGPT) 13 [iU]/L (Normal) Range: 0-32 [...] Glucose, Serum 104 mg/dL (Abnormal) Range: 65-99 77-Vkg-106691:13 LIPID PANEL (97589) Comments: PATIENT WAS FASTINGPERFORMED BY: [employer]6370 [employer] [facility] [id number] LDL/HDL Ratio 0.9 {ratio_units} (Normal) Range: 0.0-3.2 LDL Cholesterol Calc 53 mg/dL (Normal) Range: 0-99 VLDL Cholesterol Drew 13 mg/dL (Normal) Range: 5-40 HDL Cholesterol 56 mg/dL (Normal) Comments: According to ATP-III Guidelines, HDL-C >59 mg/dL is considered anegative risk factor for CHD. Triglycerides 64 mg/dL (Normal) Range: 0-149 Cholesterol, Total 122 mg/dL (Normal) Range: 100-199 30-Aps-685168:13 Vitamin D Hydroxy (97496) Comments: PATIENT WAS FASTINGPERFORMED BY: [facility]6370 [facility] [id number] Vitamin D, 25-Hydroxy 72.0 ng/mL (Normal) Range: 30.0-100.0 Comments: Vitamin D deficiency has been defined by the Mineral ofMedicine and an Endocrine Society practice guideline as alevel of serum 25-OH vitamin D less than 20 ng/mL (1,2).The Endocrine Society went on to further define vitamin Dinsufficiency as a level between 21 and 29 ng/mL (2).1. IOM (Mineral of Medicine). 2010. Dietary reference intakes for calcium and D. [place]: The National Academies Press.2. Isidro MF, Bella FLORES, Ron GAVIN, et al. Evaluation, treatment, and prevention of vitamin D deficiency: an Endocrine Society clinical practice guideline. JCEM. 2010; 96(7):9971-30. 1-Kph-724852:06 HgA1C , Office (58545) HgA1C , Office 6.5 % (Normal) Range: 4.6 - 7.1 :46 CBC WITH MANUAL DIFF Comments: PATIENT WAS FASTINGPERFORMED BY: LabCoRobert Wood Johnson [facility] Hospital at RahwayQazyep0930 [facility] [id number] Information: [id number] (47575) Immature Grans (Abs) 0.0 {x10E3/uL} (Normal) Range: [...] 8.9 {x10E3/uL} (Normal) Range: 3.4-10.8 :46 TSH (95643) Comments: PATIENT WAS FASTINGPERFORMED BY: [facility] [id number] TSH 2.720 {uIU/mL} (Normal) Range: 0.450-4.500 :46 LIPID PANEL (45893) Comments: PATIENT WAS FASTINGPERFORMED BY: [facility]6370 [facility] [id number] LDL/HDL Ratio 0.8 {ratio_units} (Normal) Range: 0.0-3.2 [...] PANEL, COMPREHENSIVE Comments: PATIENT WAS FASTINGPERFORMED BY: [facility] [id number] (42114) ALT (SGPT) 20 [iU]/L (Normal) Range: 0-32 [...] Glucose, Serum 96 mg/dL (Normal) Range: 65-99 40-Hne-985604:54 HgA1C , Office (83682) HgA1C , Office 6.5 % (Normal) Range: 4.6 - 7.1 46-Gjj-045948:21 Protein Electro, Random Urine Comments: PERFORMED BY: [facility] [id number] Please note: SPRCS (Normal) Comments: Protein electrophoresis scan will follow via computer, mail, orcourier delivery. Gamma Globulin, U 14.4 % (Normal) M-Stewart, % Not Observed % (Normal) Beta Globulin, U 24.3 % (Normal) Xmnct-7-Jcnvpflg, U 22.4 % (Normal) Tykwf-0-Dnovfppk, U 5.9 % (Normal) Albumin, U 33.0 % (Normal) Protein,Total,Urine 10.5 mg/dL (Normal) Range: 0.0-15.0 29-Vkh-370511:21 Protein Electro.,S Comments: PERFORMED BY: [employer] [place] [id number] Please note: SPRCS (Normal) Comments: Protein electrophoresis scan will follow via computer, mail, orcourier delivery. A/G Ratio 1.4 (Normal) Range: 0.7-2.0 Globulin, Total 2.7 g/dL (Normal) Range: 2.0-4.5 Gamma Globulin 0.8 g/dL (Normal) Range: 0.5-1.6 M-Stewart Not Observed g/dL (Normal) Xyvud-1-Rhebfgml 0.7 g/dL (Normal) Range: 0.4-1.2 Beta Globulin 1.1 g/dL (Normal) Range: 0.6-1.3 Ksrkw-9-Qcehdjif 0.2 g/dL (Normal) Range: 0.1-0.4 Albumin 3.7 g/dL (Normal) Range: 3.2-5.6 Written Authorization WAR (Normal) Comments: PERFORMED BY: [facility] [place] [address] [id number] 1:21 Comments: Written Authorization Received.Authorization received from ORIGINAL ORDER [id number] by Alyson Correa 04-Oct-20129:25 URINE KRISTINA CULTURE-AGNES COL Comments: post-atb; PATIENT NOT FASTINGPERFORMED BY: [facility] [facility] [id number] Information: SRC:UR [id number] COUNT (01811) Result 1 CNSNSS (Normal) Comments: Coagulase negative [...] S Urine Final report Culture,Comprehe (Normal) nsive [id number] URINE KRISTINA CULTURE (AGNES Comments: PATIENT NOT FASTINGPERFORMED BY: [facility] [place], [place] [address] [id number] Information: SRC:UR G77360 COL COUNT) (04473) Antimicrobial MIHEAD (Normal) Comments: S = Susceptible; [...] primarily for treating urinary tract infections. (CLSI, [id number],2009) Urine Final report (Normal) Culture,Comprehensive :28 Microscopic Examination Comments: PATIENT NOT FASTINGPERFORMED BY: [facility] Ockqoj5091 [facility] [id number] Bacteria None seen (Normal) Mucus Threads Present (Normal) Epithelial Cells (non renal) 0-10 {/hpf} (Normal) Range: 0 - 10 RBC 0-3 {/hpf} (Normal) Range: 0 - 3 WBC 0-5 {/hpf} (Normal) Range: 0 - 5 :28 URINE KRISTINA CULTURE-IDENTIFICATN Comments: re check following ATB treatment; PATIENT NOT FASTINGPERFORMED BY: [facility] Fzjbgn3908 [facility] [id number] (38762) Result 1 CNSNSS (Normal) Comments: Coagulase negative [...] S Urine Final report Culture,Comprehens (Normal) natividad 89-Zcv-932675:28 URINALYSIS (26663) Comments: re check following ATB treatment; PATIENT NOT FASTINGPERFORMED BY: RYLIE [facility] Mussdu9044 Aditya Sosa [place] [id number] Information: [id number] Microscopic Examination See below: (Normal) Nitrite, Urine Negative (Normal) Bilirubin Negative (Normal) Urobilinogen,Semi-Qn 0.2 mg/dL (Normal) Range: 0.0-1.9 Ketones Negative (Normal) Occult Blood Negative (Normal) Glucose Negative (Normal) Protein Negative (Normal) Appearance Clear (Normal) WBC Esterase Trace (Abnormal) Urine-Color Yellow (Normal) pH 6.5 (Normal) Range: 5.0-7.5 Specific [place] 1.009 (Normal) Range: 1.005-1.030 5-Xnm-443357:09 ABDOMEN/PELVIS WITHOUT CONT Radiology Report See Note [...] Sexton M.D.August 07, 2012 at 1:59:39 PM [id number] Signed GP/GP If you are the referring physician and would like to consult with theradiologist who provided this interpretation, please contact Yuly Zapien at [phone]. If this radiologist is unavaila ble, youwill be directed to another radiologist to assist. If you are a patient with a question regarding this report, pleasecontactyour referring physician directly. Professional Interpretation Provide d By: [employer], Phone , These documents contain legally protected [...] 08/07/12 1406 Sign by: Elmer Sexton MD 6-Byn-992089:46 URINE KRISTINA CULTURE-AGNES COL Comments: PATIENT NOT FASTINGPERFORMED BY: [facility] Diegolin6370 [facility] [id number] Information: SRC:UR [id number] COUNT (03380) Antimicrobial MIHEAD (Normal) Comments: S = Susceptible; [...] mL (Normal) Urine Final report Culture,Comprehensive (Normal) 5-Ymo-213421:34 Urinalysis, Office (44039) UA - BILIRUBIN Negative (Normal) UA - BLOOD Non Hemolyzed Moderate (Normal) UA - GLUCOSE Negative (Normal) UA - KETONES Moderate mg/dL (Normal) Comments: trace UA - LEUKOCYTE ESTERASE Small (Normal) UA - NITRITE Negative (Normal) UA - PH 7.0 (Normal) UA - PROTEIN Trace mg/dL (Normal) UA - SPECIFIC GRAVITY 1.020 (Normal) URINE UROBILINGN AGNES TIMED Normal mg/dL (Normal) 05-Uup-698914:21 LIPID PANEL (10907) Comments: PERFORMED BY: [employer] [place] [id number] LDL/HDL Ratio 0.9 {ratio_units} (Normal) Range: 0.0-3.2 HDL Cholesterol 54 mg/dL (Normal) Comments: According to ATP-III Guidelines, HDL-C >59 mg/dL is considered anegative risk factor for CHD. LDL Cholesterol Calc 48 mg/dL (Normal) Range: 0-99 VLDL Cholesterol Drew 21 mg/dL (Normal) Range: 5-40 Cholesterol, Total 123 mg/dL (Normal) Range: 100-199 Triglycerides 104 mg/dL (Normal) Range: 0-149 54-Fdw-252645:21 CBC WITH MANUAL DIFF (16687) Comments: PERFORMED BY: [facility]At[facility] [id number] Immature Grans (Abs) 0.0 {x10E3/uL} (Normal) Range: [...] 3.77-5.28 WBC 9.0 {x10E3/uL} (Normal) Range: 4.0-10.5 90-Eue-779840:21 METABOLIC PANEL, COMPREHENSIVE Comments: PERFORMED BY: [facility] [id number] (60077) ALT (SGPT) 15 [iU]/L (Normal) Range: 0-32 [...] Glucose, Serum 107 mg/dL (Abnormal) Range: 65-99 99-Eta-542028:21 MICROALBUMIN: CREATININE RATIO Comments: PERFORMED BY: [employer]70 [facility]At[facility] [id number] (61341) AND (17571) Microalb/Creat Ratio 3.5 {mg/g_creat} (Normal) Range: 0.0-30.0 Microalbumin, Urine 3.5 ug/mL (Normal) Range: 0.0-17.0 Creatinine, Urine 100.1 mg/dL (Normal) Range: 15.0-278.0 56-Glr-325423:21 TSH (42083) Comments: PERFORMED BY: [facility]At[facility] [id number] TSH 2.440 {uIU/mL} (Normal) Range: 0.450-4.500 42-Bxx-302015:21 PARATHORMONE (54883) Comments: PERFORMED BY: [employer] Indialin6370 [facility] [id number] PTH, Intact 14 pg/mL (Abnormal) Range: 15-65 33-Thg-876362:21 PHOSPHORUS (71942) Comments: PERFORMED BY: [facility] Wcszky7033 [facility] [id number] Phosphorus, Serum 3.8 mg/dL (Normal) Range: 2.5-4.5 10-Epv-393379:21 Vitamin D Hydroxy (14976) Comments: PERFORMED BY: [facility] Didbkb4073 [facility] [id number] Vitamin D, 25-Hydroxy 87.1 ng/mL (Normal) Range: 30.0-100.0 Comments: Vitamin D deficiency has been defined by the Mineral ofMedicine and an Endocrine Society practice guideline as alevel of serum 25-OH vitamin D less than 20 ng/mL (1,2).The Endocrine Society went on to further define vitamin Dinsufficiency as a level between 21 and 29 ng/mL (2).1. IOM (Mineral of Medicine). 2010. Dietary reference intakes for calcium and D. [place]: The National Academies Press.2. Isidro MF, Bella [place], Jolene-Carlos GAVIN, et al. Evaluation, treatment, and prevention of vitamin D deficiency: an Endocrine Society clinical practice guideline. JCEM. 2010; 96(7):1911-30. 44-Kuh-536819:15 HgA1C , Office (64333) HgA1C , Office 6.2 % (Normal) Range: [...] Sexton M.D.July 05, 2012 at 9:40:03 AM [id number] Signed GP/GP If you are the referri physician and would like to consult with theradiologist who provided this interpretation, please contact Yuly Zapien at [phone]. If this radiologist is unavailable, youwill be direct ed to another radiologist to assist. If you are a patient with a question regarding this report, pleasecontactyour referring physician directly. Professional Interpretation Provided By: [facility] , These documents contain legally protected [...] is considered osteopenic, as outlined above, according toWUnimed Medical Center Organi zation (WHO) criteria. Fracture risk is [...] Sexton M.D.July 05, 2012 at 9:45:08 AM [id number] Signed GP/GP If you are the referring physician and would like to consult with theradiologist who provided this interpretation, please contact Yuly Zapien at [phone]. If this radiologist is unavailable, youwill be [...] on 07/05/1253 Sign by: Elmer Sexton MD 45-Hhg-146291:19 Lyme Disease Antibody W/ Comments: PATIENT NOT FASTINGPERFORMED BY: [facility] [id number] Information: [id number] Reflex (30256) Lyme Ab Interp.,EIA Negative (Normal) Lyme IgG/IgM Ab <0.91 {index} (Normal) Range: 0.00-0.90 Comments: Negative <0.91 Equivocal 0.91 - 1.09 Positive >1.09 Note: The CDC curren tly advises that Western blot testing be performed following all equivocal or positive EIA results. Final diagnosis should include appropriate clinical findi ngs and a positive EIA which is also positive by Western blot. 43-Lcz-512702:05 Lyme Disease Antibody W/ Comments: PATIENT NOT FASTINGPERFORMED BY: [facility] [id number] Information: [id number] Reflex (76874) Lyme Ab Interp.,EIA Negative (Normal) Lyme IgG/IgM Ab <0.91 {index} (Normal) Range: 0.00-0.90 Comments: Negative <0.91 Equivocal 0.91 - 1.09 Positive >1.09 Note: The [facility] curren tly advises that Western blot testing be performed following all equivocal or positive EIA results. Final diagnosis should include appropriate clinical findi ngs and a positive EIA which is also positive by Western blot. 14-Sbz-845855:45 CBC WITH MANUAL DIFF Comments: PATIENT WAS FASTINGPERFORMED BY: [facility] [id number] Information: [id number] (67295) Immature Grans (Abs) 0.0 {x10E3/uL} (Normal) Range: [...] 3.77-5.28 WBC 8.0 {x10E3/uL} (Normal) Range: 4.0-10.5 24-Pmr-249520:45 METABOLIC PANEL, COMPREHENSIVE Comments: PATIENT WAS FASTINGPERFORMED BY: [facility]CoRobert [facility] at RahwayXhddmj2506 [facility] [id number] (12932) ALT (SGPT) 21 [iU]/L (Normal) Range: 0-32 [...] Glucose, Serum 99 mg/dL (Normal) Range: 65-99 59-Qgp-537940:45 TSH (39985) Comments: PATIENT WAS FASTINGPERFORMED BY: [facility] Nmpdod1547 [facility] [id number] TSH 1.850 {uIU/mL} (Normal) Range: 0.450-4.500 18-Hyb-689088:45 LIPID PANEL (88678) Comments: PATIENT WAS FASTINGPERFORMED BY: LabCoRobert Wood Johnson [facility] Hospital at RahwaySezhys3896 [facility] [id number] LDL/HDL Ratio 1.2 {ratio_units} (Normal) Range: 0.0-3.2 LDL Cholesterol Calc 59 mg/dL (Normal) Range: 0-99 VLDL Cholesterol Drew 22 mg/dL (Normal) Range: 5-40 HDL Cholesterol 50 mg/dL (Normal) Comments: According to ATP-III Guidelines, HDL-C >59 mg/dL is considered anegative risk factor for CHD. Triglycerides 111 mg/dL (Normal) Range: 0-149 Cholesterol, Total 131 mg/dL (Normal) Range: 100-199 38-Rmg-929021:22 Blood Glucose , Office (04390) Blood Glucose , Office 142 (Normal) Comments: has eaten in last 2h108 fasting this am 2-Gow-463886:16 CHEST, PA AND LATERAL Radiology Report See [...] EDTElectronically Signed GP/GP Professional Interpretation Provided By: [facility] p, , To consult with a radiologist regarding this report, please call our [id number] line @ Dictated on 11/05/11 1316 by Darshan BARRIGA,RamonriJamaransc ribed on 11/05/11 1346 by ITS IMPORTSign by Darshan BARRIGA,Elmer on 11/05/11 1347 Sign by: Darshan BARRIGA,Elmer :44 MICROALBUMIN: CREATININE RATIO Comments: PATIENT WAS FASTINGPERFORMED BY: WisdomTreeRobert Wood Johnson [facility] Hospital at RahwayKtiavr2825 [facility] [id number] (24200) AND (15794) Microalb/Creat Ratio 6.8 {mg/g_creat} (Normal) Range: 0.0-30.0 Microalbumin, Urine 9.0 ug/mL (Normal) Range: 0.0-17.0 Creatinine, Urine 133.1 mg/dL (Normal) Range: 15.0-278.0 :44 METABOLIC PANEL, COMPREHENSIVE Comments: PATIENT WAS FASTINGPERFORMED BY: [employer] Mzktpq9094 [facility] [id number] (92520) ALT (SGPT) 20 [iU]/L (Normal) Range: 0-40 [...] Glucose, Serum 111 mg/dL (Abnormal) Range: 65-99 25-Oij-60245:44 CBC WITH MANUAL DIFF Comments: PATIENT WAS FASTINGPERFORMED BY: LabCoRobert Wood Johnson [facility] Hospital at RahwayJfkgop7558 [facility] [id number] Information: [id number] (09494) Immature Grans (Abs) 0.0 {x10E3/uL} (Normal) Range: [...] {x10E3/uL} (Normal) Range: 4.0-10.5 :44 LIPID PANEL (30765) Comments: PATIENT WAS FASTINGPERFORMED BY: EdvertRobert Wood Johnson [facility] Hospital at RahwayJbefjq3968 [facility] [id number] LDL/HDL Ratio 0.8 {ratio_units} (Normal) Range: 0.0-3.2 LDL Cholesterol Calc 46 mg/dL (Normal) Range: 0-99 VLDL Cholesterol Drew 18 mg/dL (Normal) Range: 5-40 HDL Cholesterol 60 mg/dL (Normal) Comments: According to ATP-III Guidelines, HDL-C >59 mg/dL is considered anegative risk factor for CHD. Triglycerides 92 mg/dL (Normal) Range: 0-149 Cholesterol, Total 124 mg/dL (Normal) Range: 100-199 :44 TSH (51851) Comments: PATIENT WAS FASTINGPERFORMED BY: EdvertRobert Wood Johnson [facility] Hospital at RahwayAgmsvg1997 [facility] [id number] TSH 5.040 {uIU/mL} (Abnormal) Range: 0.450-4.500 :09 HgA1C , Office (54522) HgA1C , Office 6.3 % (Normal) Range: 4.6 - 7.1 76-Egm-024875:26 BILAT SCRN DIGITAL & CAD Radiology Report [...] radiologist regarding this report, please call our [id number] line @ Dictated on 06/18/11 1447 by Darshan BARRIGA,Sevenranscribed on 06/18/11 1601 by ITS IMPORTSign by Elmer Azul MD on 06/18/11 1602 Sign by: Elmer Sexton MD 10-Ulq-367454:55 CBC WITH MANUAL DIFF Comments: PATIENT WAS FASTINGPERFORMED BY: LabCoRobert Wood Johnson [facility] Hospital at RahwaySzaskk1472 [facility] [id number] Information: [id number] (55563) Immature Grans (Abs) 0.0 {x10E3/uL} (Normal) Range: [...] 3.80-5.10 WBC 8.9 {x10E3/uL} (Normal) Range: 4.0-10.5 04-Yxi-503636:55 METABOLIC PANEL, COMPREHENSIVE Comments: PATIENT WAS FASTINGPERFORMED BY: LabCoRobert Wood Johnson [facility] at RahwayQoykpc9082 [facility] [id number] (35711) ALT (SGPT) 16 [iU]/L (Normal) Range: 0-40 [...] Glucose, Serum 107 mg/dL (Abnormal) Range: 65-99 45-Jon-050197:55 LIPID PANEL (72871) Comments: PATIENT WAS FASTINGPERFORMED BY: [employer] Zhvjfh0212 [facility] [id number] LDL/HDL Ratio 0.8 {ratio_units} (Normal) Range: 0.0-3.2 LDL Cholesterol Calc 46 mg/dL (Normal) Range: 0-99 VLDL Cholesterol Drew 15 mg/dL (Normal) Range: 5-40 HDL Cholesterol 57 mg/dL (Normal) Comments: According to ATP-III Guidelines, HDL-C >59 mg/dL is considered anegative risk factor for CHD. Triglycerides 77 mg/dL (Normal) Range: 0-149 Cholesterol, Total 118 mg/dL (Normal) Range: 100-199 :57 HgA1C , Office (12056) HgA1C , Office 6.3 % (Normal) Range: 4.6 - 7.1 :57 Blood Glucose , Office (53609) Blood Glucose , Office 88 (Normal) :31 Urinalysis, Office (95080) UA - BILIRUBIN Negative (Normal) UA - BLOOD Negative (Normal) UA - GLUCOSE Negative (Normal) UA - KETONES Negative mg/dL (Normal) UA - LEUKOCYTE ESTERASE Small (Normal) UA - NITRITE Negative (Normal) UA - PH 7.0 (Normal) UA - PROTEIN Negative mg/dL (Normal) UA - SPECIFIC GRAVITY 1.025 (Normal) URINE UROBILINGN AGNES TIMED 2 mg/dL (Normal) 41-Oam-705704:57 URINE KRISTINA CULTURE-AGNES COL Comments: PATIENT NOT FASTINGPERFORMED BY: LabCoRobert Wood Johnson [facility] Hospital at RahwayBlptlj7884 [facility] [id number] Information: SRC:UR [id number] COUNT (72945) Result 1 BETAGB (Normal) Comments: Beta hemolytic [...] per mL Urine Final report (Normal) Culture,Comprehensive 78-Dsv-102710:14 Urinalysis, Office (71296) UA - BILIRUBIN Negative (Normal) UA - BLOOD Hemolyzed Large (Normal) UA - GLUCOSE Negative (Normal) UA - KETONES Negative mg/dL (Normal) UA - LEUKOCYTE ESTERASE Small (Normal) UA - NITRITE Negative (Normal) UA - PH 6.0 (Normal) UA - PROTEIN 30 mg/dL (Normal) UA - SPECIFIC GRAVITY 1.025 (Normal) URINE UROBILINGN AGNES TIMED Normal mg/dL (Normal) 19-Fij-410578:15 METABOLIC PANEL, Comments: PATIENT WAS FASTINGPERFORMED BY: LabCoRobert Wood Johnson [facility] Hospital at RahwayUwyfsw5652 [facility] [id number] Information: [id number] COMPREHENSIVE (72535) ALT (SGPT) 19 [iU]/L (Normal) Range: 0-40 [...] Glucose, Serum 107 mg/dL (Abnormal) Range: 65-99 80-Kag-112248:15 MICROALBUMIN: CREATININE RATIO Comments: PATIENT WAS FASTINGPERFORMED BY: RYLIE Edvert Rvkhja4942 [facility] [id number] (10010) AND (39107) Microalb/Creat Ratio 4.1 {mg/g_creat} (Normal) Range: 0.0-30.0 Creatinine, Urine 88.8 mg/dL (Normal) Range: 15.0-278.0 Microalbumin, Urine 3.6 ug/mL (Normal) Range: 0.0-17.0 77-Knc-409081:15 TSH (04409) Comments: PATIENT WAS FASTINGPERFORMED BY: RYLIE [employer] Afteyd8491 [facility] [id number] TSH 4.160 {uIU/mL} (Normal) Range: 0.450-4.500 94-Afs-913256:15 LIPID PANEL (15131) Comments: PATIENT WAS FASTINGPERFORMED BY: RYLIE Edvert Pjhspb5218 [facility] [id number] LDL/HDL Ratio 0.9 {ratio_units} (Normal) Range: 0.0-3.2 LDL Cholesterol Calc 44 mg/dL (Normal) Range: 0-99 HDL Cholesterol 50 mg/dL (Normal) Comments: According to ATP-III Guidelines, HDL-C >59 mg/dL is considered anegative risk factor for CHD. VLDL Cholesterol Drew 21 mg/dL (Normal) Range: 5-40 Triglycerides 103 mg/dL (Normal) Range: 0-149 Cholesterol, Total 115 mg/dL (Normal) Range: 100-199 :31 HgA1C , Office (35800) HgA1C , Office 6.5 % (Normal) Range: 4.6 - 7.1 :31 Blood Glucose , Office (45230) Blood Glucose , Office 107 (Normal) 20-Lsz-164976:15 MICROALBUMIN: CREATININE RATIO Comments: PATIENT WAS FASTINGPERFORMED BY: EdvertRobert Wood Johnson [facility] Hospital at RahwaySxqbyo4179 [facility] [id number] (06394) AND (70698) Microalb/Creat Ratio 8.0 {mg/g_creat} (Normal) Range: 0.0-30.0 Microalbumin, Urine 11.2 ug/mL (Normal) Range: 0.0-17.0 Creatinine, Urine 139.4 mg/dL (Normal) Range: 15.0-278.0 :15 CBC WITH MANUAL DIFF Comments: PATIENT WAS FASTINGPERFORMED BY: EdvertRobert Wood Johnson [facility] Hospital at RahwayBzeeka7583 [facility] [id number] Information: [id number] (70885) Immature Grans (Abs) 0.0 {x10E3/uL} (Normal) Range: [...] 3.80-5.10 WBC 8.3 {x10E3/uL} (Normal) Range: 4.0-10.5 64-Ugv-369787:15 METABOLIC PANEL, COMPREHENSIVE Comments: PATIENT WAS FASTINGPERFORMED BY: LabCoRobert Wood Johnson [facility] Hospital at RahwayLzauxd5991 [facility] [id number]; appt 01/25/11 (15965) ALT (SGPT) 15 [iU]/L (Normal) Range: 0-40 [...] Glucose, Serum 96 mg/dL (Normal) Range: 65-99 33-Oqs-810194:15 LIPID PANEL (24437) Comments: PATIENT WAS FASTINGPERFORMED BY: [employer] [facility] [id number] LDL/HDL Ratio 1.0 {ratio_units} (Normal) Range: 0.0-3.2 LDL Cholesterol Calc 49 mg/dL (Normal) Range: 0-99 HDL Cholesterol 50 mg/dL (Normal) Comments: According to ATP-III Guidelines, HDL-C >59 mg/dL is considered anegative risk factor for CHD. VLDL Cholesterol Drew 19 mg/dL (Normal) Range: 5-40 Cholesterol, Total 118 mg/dL (Normal) Range: 100-199 Triglycerides 97 mg/dL (Normal) Range: 0-149 64-Uwn-822984:15 TSH (87774) Comments: PATIENT WAS FASTINGPERFORMED BY: [employer] [facility] [id number] TSH 4.080 {uIU/mL} (Normal) Range: 0.450-4.500 29-Itz-48997:32 Vitamin D Hydroxy (28506) Comments: PATIENT WAS FASTINGPERFORMED BY: WisdomTreerp Yjdibv7845 [facility] [id number] Vitamin D, 25-Hydroxy 39.9 ng/mL (Normal) Range: 32.0-100.0 Comments: Recent studies consider the lower limit of 32.0 ng/mL to be athreshold for optimal health.Keith CANO. J Nutr. 2004;135(2):317-22. :32 METABOLIC PANEL, Comments: PATIENT WAS FASTINGPERFORMED BY: RYLIE LabCoRobert Wood Johnson [facility] Hospital at RahwayEgcrnt1182 [facility] [id number] Information: [id number]; appt 09/28/10 COMPREHENSIVE (53345) ALT (SGPT) 19 [iU]/L (Normal) Range: 0-40 [...] mg/dL (Abnormal) Range: 65-99 :32 LIPID PANEL (62255) Comments: PATIENT WAS FASTINGPERFORMED BY: LabCoRobert Wood Johnson [facility] Hospital at RahwaySzfeee1800 [facility] [id number] HDL Cholesterol 50 mg/dL (Normal) Comments: According to ATP-III Guidelines, HDL-C >59 mg/dL is considered anegative risk factor for CHD. LDL Cholesterol Calc 48 mg/dL (Normal) Range: 0-99 LDL/HDL Ratio 1.0 {ratio_units} (Normal) Range: 0.0-3.2 VLDL Cholesterol Drew 25 mg/dL (Normal) Range: 5-40 Cholesterol, Total 123 mg/dL (Normal) Range: 100-199 Triglycerides 124 mg/dL (Normal) Range: 0-149 :54 HgA1C , Office (97333) HgA1C , Office 6.3 % (Normal) Range: 4.6 - 7.1 :54 Blood Glucose , Office (34684) Blood Glucose , Office 108 (Normal) :46 [...] PT/INR Specimen # [id number] . 03/30/10 1213 [facility] CONFIRMATION SPECIMEN RESULT IS FROM VENOUS BLOOD. INR 3.3 (Normal) PROTIME 34.2 s (Abnormal) Range: 9.1-11.7 56-Kes-471261:45 INR ISTAT 3.80 (Abnormal) 36-Cnh-709462:45 PROTIME ISTAT 42.4 {SEC} (Normal) 04-Dmj-026614:20 BILAT SCRN DIGITAL & CAD Radiology Report See Note (Normal) Comments: Exam Number: [id number] MAMMOGRAPHY - BILATERAL SCREENING INDICATION:Routine annual screening [...] attaching a ResultCode to this e xam.ADDENDUM: [id number] HPBI/MDS Reported By: GABRIEL REYES M.D. 76-Ogf-488282:19 DEXA BONE DENSITY STUDY (HP) Radiology Report See Note Comments: Exam Number: [id number] CLINICAL:Patient is a 69-year-old female who is postmenopausal. EXAMINATION:DUAL ENERGY X-RAY ABSORPTIOMETRY / DEXA. TECHNIQUE:Bone mineral density of the lumbar spine and both hi (Normal) ps was measuredusing a Hightail. ETribeHR scannerFINDINGS:Lumbar spine g/cm2(1.257) / T-score (0.6) / [...] 02-Mar-20 PROTIME ISTAT 37.5 {SEC} 1011:55 (Normal) 35-Swb-26774:27 CBC WITH MANUAL DIFF Comments: PATIENT WAS FASTINGPERFORMED BY: LabHenry [facility]6370 [facility] [id number] Information: ADD [id number] AND DRAW FEE 99 4255 (25005) Immature Grans (Abs) 0.0 {x10E3/uL} (Normal) Range: [...] {x10E3/uL} (Normal) Range: 4.0-10.5 :27 LIPID PANEL (52575) Comments: PATIENT WAS FASTINGPERFORMED BY: [employer]70 [facility]ightAt[facility] [id number] LDL Cholesterol Calc 48 mg/dL (Normal) Range: 0-99 LDL/HDL Ratio 1.2 {ratio_units} (Normal) Range: 0.0-3.2 VLDL Cholesterol Drew 18 mg/dL (Normal) Range: 5-40 HDL Cholesterol 39 mg/dL (Abnormal) Comments: According to ATP-III Guidelines, HDL-C >59 mg/dL is considered anegative risk factor for CHD. Triglycerides 88 mg/dL (Normal) Range: 0-149 Cholesterol, Total 105 mg/dL (Normal) Range: 100-199 :27 TSH (63036) Comments: PATIENT WAS FASTINGPERFORMED BY: [facility] SoftwareAt[facility] [id number] TSH 3.660 {uIU/mL} (Normal) Range: 0.450-4.500 :27 METABOLIC PANEL, COMPREHENSIVE Comments: PATIENT WAS FASTINGPERFORMED BY: [facility] Ffdyvv4948 [facility] [id number] (50500) ALT (SGPT) 18 [iU]/L (Normal) Range: 0-40 [...] Glucose, Serum 108 mg/dL (Abnormal) Range: 65-99 22-Kpf-819560:47 HgA1C , Office (24488) HgA1C , Office 6.8 % (Normal) Range: 4.6 - 7.1 44-Scj-757111:47 Blood Glucose , Office (69322) Blood Glucose , Office 107 (Normal) 9-Bfq-159583:59 PRO TIME INR 2.9 (Normal) PROTIME 29.9 [...] Report See Note (Normal) Comments: Exam Number: [id number] CLINICAL:The patient is a 69-year-old female with [...] proximalring finger. Reported By: GABRIEL REYES M.D. 3-Jxt-708906:36 PRO TIME INR 5.6 (Abnormal) Comments: [facility] Justin CHAY SANTIAGOEN.REPORT READ BACK BY SAME . PROTIME 57.6 s (Abnormal) Range: 9.1-11.7 8-Wph-615196:28 PRO TIME INR 2.3 (Normal) PROTIME 23.7 s (Abnormal) Range: 9.1-11.7 51-Yig-314047:57 BEDSIDE GLU 139 mg/dL (Abnormal) Range: 70-110 Comments: Fasting Glucose result greater than or equal to 126 mg/dLsuggests DIABETES MELLITUS per A.D.A. criteria.Policy and Physicians Orders [id number] 02-Wki-490816:02 BEDSIDE GLU 113 mg/dL (Abnormal) Range: 70-110 Comments: Fasting Glucose result from 110 to <126 mg/dLsuggests IMPAIRED HOMEOSTASIS per A.D.A. criteria.Policy and Physicians Orders wbccssqd8624-Nov-200910:24 LEFT HEART CATH/COR/LV PERCUT Radiology Report See Note (Normal) Comments: Exam Number: [id number] Procedure completed. Please see MEDICAL RECORDS reports in PCI -OP - OP NOTELET - LETTER. Reported By: CYRIL ROBLES M.D. 75-Wsc-123622:26 BMP BUN/CRE 35.0 {RATIO} (Abnormal) Range: 10-20 [...] (Normal) GLU 107 mg/dL (Normal) Range: 70-110 63-Kur-793427:26 CBC HCT 37.6 % (Normal) Range: 37-47 MCH 30.2 pg (Normal) Range: 27.0-32.0 MCHC 34.1 g/dL (Normal) Range: 32-36 MCV 88.4 fL (Normal) Range: 81-99 MPV 7.7 fL (Normal) Range: 6.5-12.0 PLT 256 K/mm3 (Normal) Range: 150-450 RDW 13.2 % (Normal) Range: 11.6-14.6 HGB 12.8 g/dL (Normal) Range: 12.0-16.0 RBC 4.25 {M/mm3} (Normal) Range: 4.2-5.4 WBC 11.4 K/mm3 (Abnormal) Range: 4.4-11.0 33-Xzf-125596:25 METABOLIC PANEL, Comments: PATIENT WAS FASTINGPERFORMED BY: LabCoRobert Wood Johnson University Hospital at RahwayFopsya7506 [facility] [id number] Information: [id number] COMPREHENSIVE (07164) ALT (SGPT) 15 [iU]/L (Normal) Range: 0-40 [...] Glucose, Serum 105 mg/dL (Abnormal) Range: 65-99 10-Ulm-817926:25 LIPID PANEL (99730) Comments: PATIENT WAS FASTINGPERFORMED BY: [employer] [facility] [id number] LDL Cholesterol Calc 50 mg/dL (Normal) Range: 0-99 LDL/HDL Ratio 1.2 {ratio_units} (Normal) Range: 0.0-3.2 VLDL Cholesterol Drew 22 mg/dL (Normal) Range: 5-40 Cholesterol, Total 114 mg/dL (Normal) Range: 100-199 HDL Cholesterol 42 mg/dL (Normal) Comments: According to ATP-III Guidelines, HDL-C >59 mg/dL is considered anegative risk factor for CHD. Triglycerides 109 mg/dL (Normal) Range: 0-149 15-Znj-189489:25 MICROALBUMIN: CREATININE RATIO Comments: PATIENT WAS FASTINGPERFORMED BY: [employer]70 [facility] [id number] (86345) AND (04423) Microalb/Creat Ratio 7.4 {mg/g_creat} (Normal) Range: 0.0-30.0 Microalbumin, Urine 9.9 ug/mL (Normal) Range: 0.0-17.0 Creatinine, Urine 134.6 mg/dL (Normal) Range: 15.0-278.0 02-Jtu-471304:17 HgA1C , Office (05455) HgA1C , Office 6.5 % (Normal) Range: 4.6 - 7.1 25-Rxs-794559:17 Blood Glucose , Office (46264) Blood Glucose , Office 114 (Normal) 26-Bax-863673:07 TSH (00392) Comments: PATIENT WAS FASTINGPERFORMED BY: Edvert Adpjux5338 [facility] [id number] TSH 3.630 {uIU/mL} (Normal) Range: 0.450-4.500 59-Sko-725607:07 METABOLIC PANEL, Comments: PATIENT WAS FASTINGPERFORMED BY: LabCoRobert Wood Johnson University Hospital at RahwayAbuhxj8244 [facility] [id number] Information: [id number] COMPREHENSIVE (71388) Alkaline Phosphatase, S 47 [iU]/L (Normal) Range: [...] Glucose, Serum 121 mg/dL (Abnormal) Range: 65-99 39-Ikq-503855:07 LIPID PANEL (09531) Comments: PATIENT WAS FASTINGPERFORMED BY: [employer] LabEtixMvlbvh3360 [facility] [id number] HDL Cholesterol 55 mg/dL (Normal) Comments: According to ATP-III Guidelines, HDL-C >59 mg/dL is considered anegative risk factor for CHD. LDL Cholesterol Calc 45 mg/dL (Normal) Range: 0-99 LDL/HDL Ratio 0.8 {ratio_units} (Normal) Range: 0.0-3.2 VLDL Cholesterol Drew 17 mg/dL (Normal) Range: 5-40 Cholesterol, Total 117 mg/dL (Normal) Range: 100-199 Triglycerides 86 mg/dL (Normal) Range: 0-149 10-Tri-514224:16 HgA1C , Office (86700) HgA1C , Office 7.1 % (Normal) Range: 4.6 - 7.1 80-Rau-345866:16 Blood Glucose , Office (45833) Blood Glucose , Office 105 (Normal) 65-Olw-51387:43 CHEST, PA AND LATERAL (MT) Radiology Report See Note (Normal) Comments: Exam Number: [id number] PA AND LATERAL CHEST No interval change is demonstrated from a previous study of November with no evidence of active pulmonary or pleural disease. Pericardial silhouette remain s in the upper limits of normal. IMPRESSIONNo evidence of active pulmonary disease. Reported By: BRADEN HOLLOWAY M.D. 55-Thw-028718:43 METABOLIC PANEL, Comments: PATIENT WAS FASTINGPERFORMED BY: [employer] LabCo Qgvebe3554 [facility] [id number] Information: [id number] COMPREHENSIVE (87878) ALT (SGPT) 11 [iU]/L (Normal) Range: 0-40 [...] Glucose, Serum 98 mg/dL (Normal) Range: 65-99 17-Owm-209098:43 LIPID PANEL (15961) Comments: PATIENT WAS FASTINGPERFORMED BY: LabCoRobert Wood Johnson University Hospital at RahwayZwjqjf9488 [facility] [id number] LDL Cholesterol Calc 49 mg/dL (Normal) Range: 0-99 LDL/HDL Ratio 1.0 {ratio_units} (Normal) Range: 0.0-3.2 Cholesterol, Total 119 mg/dL (Normal) Range: 100-199 HDL Cholesterol 50 mg/dL (Normal) Comments: According to ATP-III Guidelines, HDL-C >59 mg/dL is considered anegative risk factor for CHD. Triglycerides 99 mg/dL (Normal) Range: 0-149 VLDL Cholesterol Drew 20 mg/dL (Normal) Range: 5-40 67-Klk-774431:43 TSH (19974) Comments: PATIENT WAS FASTINGPERFORMED BY: Edvert Xoftzx6838 [facility] [id number] TSH 3.500 {uIU/mL} (Normal) Range: 0.450-4.500 Comments: Effective July 28, 2009, TSH reference interval for11 - 19 years will be changing to: 0.450 - 4.500 uIU/mLReference interval for all other ages will NOT be affected. :49 HgA1C , Office (29711) HgA1C , Office 6.1 % (Normal) Range: 4.6 - 7.1 :49 Blood Glucose , Office (40567) Blood Glucose , Office 127 (Normal) 39-Arc-09614:00 LIPID PANEL (86729) Comments: PATIENT WAS FASTINGPERFORMED BY: [employer]6370 [facility] [id number] Cholesterol, Total 112 mg/dL (Normal) Range: 100-199 [...] PANEL, COMPREHENSIVE Comments: PATIENT WAS FASTINGPERFORMED BY: NeuroTroniklin6370 [facility] [id number] (33496) A/G Ratio 1.6 (Normal) Range: 1.1-2.5 Albumin, [...] Sodium, Serum 142 mmol/L (Normal) Range: 135-145 99-Vkf-16096:00 CBC WITH MANUAL DIFF (81182) Comments: PATIENT WAS FASTINGClinical Information: [id number] PERFORMED BY: [facility] [id number] Baso (Absolute) 0.1 {x10E3/uL} (Normal) Range: 0.0-0.2 [...] 8.6 {x10E3/uL} (Normal) Range: 4.0-10.5 :00 TSH (57601) Comments: PATIENT WAS FASTINGPERFORMED BY: [facility] Jcrtrx4254 [facility] [id number] TSH 7.360 {uIU/mL} (Abnormal) Range: 0.450-4.500 :30 HgA1C , Office (52088) HgA1C , Office 6.5 % (Normal) Range: 4.6 - 7.1 :30 Blood Glucose , Office (53195) Blood Glucose , Office 126 (Normal) :35 CBC With Differential/Platelet Comments: PATIENT WAS FASTINGPERFORMED BY: [facility] Kykfjz4325 [facility] [id number] Baso (Absolute) 0.1 {x10E3/uL} (Normal) Range: 0.0-0.2 [...] Panel (14) Comments: PATIENT WAS FASTINGPERFORMED BY: [facility] [id number] A/G Ratio 1.4 (Normal) Range: 1.1-2.5 Albumin, [...] With LDL/HDL Comments: PATIENT WAS FASTINGPERFORMED BY: [facility] SoftwareAtrium Health Carol[facility] [id number] Ratio Cholesterol, Total 152 mg/dL (Normal) Range: [...] Randm Ur Comments: PATIENT WAS FASTINGPERFORMED BY: [employer]70 [facility]At[facility] [id number] Creatinine, Urine 118.6 mg/dL Range: 15.0-278.0 (Normal) Microalb/Creat Ratio 2.6 {ug/mg_creat} Range: 0.0-30.0 (Normal) Microalbumin, Urine 3.1 ug/mL (Normal) Range: 0.0-17.0 : TSH 5.690 {uIU/mL} Comments: PATIENT WAS FASTINGPERFORMED BY: [facility] [facility]6370 [facility]The [facility] [id number] 35 (Abnormal) Range: 0.450-4.500 :29 TSH (50069) Comments: PATIENT NOT FASTINGClinical Information: ADD DRAW FEE 194915 ADD J 00997 PERFORMED BY: LabAdaptly Lnuvce2636 [facility] [id number] TSH 4.407 {uIU/mL} (Normal) Range: 0.450-4.500 :04 HgA1C , Office (08477) HgA1C , Office 6.5 % (Normal) Range: 4.6 - 7.1 :04 Blood Glucose , Office (29509) Blood Glucose , Office 110 (Normal) :35 UNILAT RT DIAG DIGITAL & CAD Radiology Report See Note (Normal) Comments: Exam Number: [id number] MAMMOGRAM, UNILATERAL RIGHT DIAGNOSTIC DIGITAL AND CAD HISTORYAbnormal screening study. Full field digital images were obtained in true lateral and in mediolateral obl ique and crab backer niocaudal spot compressionviews. The current study is [...] s werealso examined with computer-aided detection software ([employer] Reported By: GABRIEL REYES M.D. 12-Aug-20089:22 [facility] Rad[facility] Report See Note (Normal) Comments: Exam Number: [id number] MAMMOGRAM, BILATERAL SCREENING DIGITAL AND CAD HISTORYRoutine [...] mammograms werealso examined with computer-aided detection software ([employer] Reported By: GABRIEL REYES M.D. 76-Vmi-097538:50 LIPID PANEL (98441) Comments: PATIENT WAS FASTINGPERFORMED BY: LabCoRobert Wood Johnson University Hospital at RahwayOdwmpw9168 [facility] [id number] Cholesterol, Total 134 mg/dL (Normal) Range: 100-199 HDL Cholesterol 46 mg/dL (Normal) Comments: According to ATP-III Guidelines, HDL-C >59 mg/dL is considered anegative risk factor for CHD. LDL Cholesterol Calc 70 mg/dL (Normal) Range: 0-99 LDL/HDL Ratio 1.5 {ratio_units} (Normal) Range: 0.0-3.2 Triglycerides 92 mg/dL (Normal) Range: 0-149 VLDL Cholesterol Drew 18 mg/dL (Normal) Range: 5-40 89-Zqz-913700:50 MICROALBUMIN: CREATININE RATIO Comments: PATIENT WAS FASTINGPERFORMED BY: WidgetboxHenry Ford Cottage Hospital6370 [facility] [id number] (27906) AND (80336) Creatinine, Urine 107.1 mg/dL (Normal) Range: 15.0-278.0 Microalb/Creat Ratio 5.6 {ug/mg_creat} (Normal) Range: 0.0-30.0 Microalbum.,U,Random 6.0 ug/mL (Normal) Range: 0.0-17.0 15-Ohf-084897:50 TSH (31367) Comments: PATIENT WAS FASTINGPERFORMED BY: [place] [id number] [facility] [id number] TSH 4.641 {uIU/mL} (Abnormal) Range: 0.450-4.500 19-Cwj-900934:50 METABOLIC PANEL, COMPREHENSIVE Comments: PATIENT WAS FASTINGClinical Information: ADD DRAW FEE [id number] ADD J 71959 PERFORMED BY: [address] [id number] (72246) A/G Ratio 1.3 (Normal) Range: 1.1-2.5 Albumin, [...] Serum 115 mg/dL (Abnormal) Range: 65-99 If -Stateless >59 mL/min/1.73 Comments: Note: Persistent reduction for [...] Sodium, Serum 143 mmol/L (Normal) Range: 135-145 98-Wmi-430145:19 HgA1C , Office (74250) HgA1C , Office 6.0 % (Normal) Range: 4.6 - 7.1 19-Rny-198670:19 Blood Glucose , Office (75365) Blood Glucose , Office 100 (Normal) 41-Pif-704728:10 LIPID CHOL 125 mg/dL (Normal) Comments: <200 [...] (Normal) Range: 6.4-8.2 :32 HgA1C , Office (33896) HgA1C , Office 6.1 % (Normal) Range: 4.6 - 7.1 :32 Blood Glucose , Office (40530) Blood Glucose , Office 102 (Normal) :39 CBC With Differential/Platelet Comments: PATIENT WAS FASTINGPERFORMED BY: LabCoRobert Wood Johnson University Hospital at RahwayBhsmqx5939 [facility] [id number] Baso (Absolute) 0.1 {x10E3/uL} (Normal) Range: 0.0-0.2 [...] Panel (14) Comments: PATIENT WAS FASTINGPERFORMED BY: LabMer[facility] Mzdjxj9953 [facility] [id number] A/G Ratio 1.3 (Normal) Range: 1.1-2.5 Albumin, [...] Serum 104 mg/dL (Abnormal) Range: 65-99 If -Stateless >60 mL/min/1.73 Range: 60-128 (Normal) Comments: Note: [...] With LDL/HDL Comments: PATIENT WAS FASTINGPERFORMED BY: [employer]6370 [facility] [id number] Ratio Cholesterol, Total 164 mg/dL (Normal) Range: [...] 3.372 {uIU/mL} Comments: PATIENT WAS FASTINGPERFORMED BY: EdvertRobert Wood Johnson University Hospital at RahwayOyzmus1953 [facility] [id number] :39 (Normal) Range: 0.450-4.500 Comments: Please note reference interval change :55 CBC WITH MANUAL DIFF (57211) Comments: PATIENT WAS FASTINGClinical Information: ADD DRAW FEE 713119 ADD J 06262 PERFORMED BY: EdvertMark Ville 3357870 [facility] [id number] Baso (Absolute) 0.1 {x10E3/uL} (Normal) Range: 0.0-0.2 [...] {x10E3/uL} (Normal) Range: 4.0-10.5 :55 LIPID PANEL (45476) Comments: PATIENT WAS FASTINGPERFORMED BY: [employer] Mkkhvz0717 [facility] [id number] Cholesterol, Total 145 mg/dL (Normal) Range: 100-199 HDL Cholesterol 49 mg/dL (Normal) Range: 40-59 LDL Cholesterol Calc 80 mg/dL (Normal) Range: 0-99 LDL/HDL Ratio 1.6 {ratio_units} (Normal) Range: 0.0-3.2 Triglycerides 78 mg/dL (Normal) Range: 0-149 VLDL Cholesterol Drew 16 mg/dL (Normal) Range: 5-40 :55 METABOLIC PANEL, COMPREHENSIVE Comments: PATIENT WAS FASTINGPERFORMED BY: [employer] Uvkyjt7048 [facility] [id number] (51894) A/G Ratio 1.4 (Normal) Range: 1.1-2.5 Albumin, [...] Serum 101 mg/dL (Abnormal) Range: 65-99 If -Stateless >60 mL/min (Normal) Range: 60-128 Comments: Note: [...] 141 mmol/L (Normal) Range: 135-145 :55 TSH (06961) Comments: PATIENT WAS FASTINGPERFORMED BY: [facility] [id number] TSH 3.447 {uIU/mL} (Normal) Range: 0.350-5.500 Comments: Adult TSH concentrations below 5.5 uIU/mL do not rule out the presence of subclinical hypothyroidism. :31 HgA1C , Office (32864) HgA1C , Office 5.9 % (Normal) Range: 4.6 - 7.1 :31 Blood Glucose , Office (37814) Blood Glucose , Office 100 (Normal) :40 DEXA BONE DENSITY STUDY () Radiology Report See Note (Normal) Comments: Exam Number: [id number] BONE DENSITOMETRY HISTORYPostmenopausal. TECHNIQUE Bone densitometry of the lumbar spine and left hip was performed. Thebest criteria for evaluation of osteoporosis is the T- value, whichrepresents the comparison of the patient's bone mass to an expectedpeak bone mass. For most patients, the mean T-value of L1 through L4is used to evaluate the lumbar spine. Based on the id west WorldHealth Organization classifications, the hip is [...] than in 2001 and 3.3% less than eq5066. The T-value of the left femoral neck is -1 which is low normal.The T-value of the total left hip is 0.4 which is normal. Bonemineral density of the total left hip is measured at 3.6% less than ke3148 and 1.8% more than in 2006. IMPRESSIONBone densitometry of the lumbar spine and left hip are within normallimits. Reported By: GABRIEL REYES M.D. 13-Fsi-362557:19 LIPID CHOL 126 mg/dL (Normal) Comments: <200 [...] mg/dL VLDL 12 mg/dL (Normal) Range: 5-40 57-Wdw-439814:19 LIVER ALB 3.5 g/dL (Normal) Range: 3.4-5.0 ALK P 53 U/L (Normal) Range: 50-136 ALT 32 [iU]/L (Normal) Range: 30-65 AST 22 U/L (Normal) Range: 15-37 D BILI 0.16 mg/dL (Normal) Range: 0.00-0.30 T BILI 0.77 mg/dL (Normal) Range: 0.00-1.00 T PROT 7.1 g/dL (Normal) Range: 6.4-8.2 23-Urs-128703:19 MICROALBUMIN,UR 16.6 mg/L (Normal) 00-Ous-883935:19 TSH 2.93 {uIU/mL} (Normal) Range: 0.34-4.82 20-Xsu-268055:47 BILAT SCRN DIGITAL & CAD Radiology Report See Note (Normal) Comments: Exam Number: [id number] MAMMOGRAM, BILATERAL SCREENING DIGITAL AND CAD HISTORYRoutine [...] examined with computer-aided detection software ([employer] Reported By: GABRIEL REYES M.D. 31-Gdw-517158:07 HgA1C , Office (27891) HgA1C , Office 5.9 % (Normal) Range: 4.6 - 7.1 84-Qxl-037624:07 Blood Glucose , Office (52650) Blood Glucose , Office 123 (Normal) 65-Evg-45261:55 COMP METABOLIC A/G 0.9 {RATIO} (Normal) Range: [...] (Normal) Range: 5-40 :33 HgA1C , Office (19308) Comments: ABn signed HgA1C , Office 5.9 % (Normal) Range: 4.6 - 7.1 :33 Blood Glucose , Office (77605) Blood Glucose , Office 91 (Normal) Comments: [...] mg/dL VLDL 18 mg/dL (Normal) Range: 5-40 85-Szw-98991:45 LIVER ALB 3.3 g/dL (Abnormal) Range: 3.4-5.0 ALK P 53 U/L (Normal) Range: 50-136 ALT 33 [iU]/L (Normal) Range: 30-65 AST 24 U/L (Normal) Range: 15-37 D BILI 0.14 mg/dL (Normal) Range: 0.00-0.30 T BILI 0.80 mg/dL (Normal) Range: 0.00-1.00 T PROT 6.8 g/dL (Normal) Range: 6.4-8.2 07-Iym-838817:34 DEXA BONE DENSITY STUDY (HP) Radiology Report See Note (Normal) Comments: Exam Number: [id number] BONE DENSITOMETRY HISTORYPostmenopausal. Bone densitometry of the [...] normal range. Reported By: GABRIEL REYES M.D. 26-Ctz-36646:14 Blood Glucose , Office (98171) Blood Glucose , Office 137 (Normal) 09-Dhk-715682:00 HgA1C , Office (21029) HgA1C , Office 5.8 % (Normal) Range: 4.6 - 7.1 70-Ois-805503:00 Blood Glucose , Office (81627) Blood Glucose , Office 98 (Normal) :28 [...] (Normal) Range: 0.34-4.82 :14 HgA1C , Office (90051) HgA1C , Office 5.7 % (Normal) Range: 4.6 - 7.1 :14 Blood Glucose , Office (31760) Blood Glucose , Office 132 (Normal) Plan [...] : Follow up in 2 weeks with [facility] for repeat UA Indication: Hematuria, unspecified Other [...] hypothyroidism Planned Observations CBC W/AUTO DIFF WBC (43018)Indication: Hypertensive kidney disease with chronic kidney disease, stage 1 through stage 4 or unspecified chronic kidney disease On: 95-Lsk-543825:29 Request METABOLIC PANEL, COMPREHENSIVE (68316)Indication: Hypertensive kidney disease with chronic kidney disease, stage 1 through stage 4 or unspecified chronic kidney disease On: 79-Cit-249542:29 Request CBC W/AUTO DIFF WBC (29717)Indication: Hypertensive kidney disease with chronic kidney disease, stage 1 through stage 4 or unspecified chronic kidney disease On: 1-Mbl-966821:03 Request URINE KRISTINA CULTURE-IDENTIFICATN (32646)Indication: UTI (urinary tract infection), uncomplicated On: :07 Request Comments: recheck after antibiotic URINALYSIS (74687)Indication: UTI (urinary tract infection), uncomplicated On: :07 Request Comments: recheck after antibiotic HgA1C , Office (43582)Indication: Diabetes mellitus type 2, controlled On: 98-Ofq-918600:23 Request MICROALBUMIN: CREATININE RATIO (09411) AND (22343)Indication: Diabetes mellitus type 2, controlled On: :30 Request METABOLIC PANEL, COMPREHENSIVE (46935)Indication: Diabetes mellitus type 2, controlled On: :30 Request LIPID PANEL (69326)Indication: Other hyperlipidemia On: :29 Request TSH (93249)Indication: Acquired hypothyroidism On: :29 Request Urinalysis, Office (30021)Indication: UTI (urinary tract infection), uncomplicated On: 73-Nlb-576140:04 Request Comments: post-atb UPEP (29856)Indication: Osteopenia On: 65-Hxm-315119:41 Request SPEP (80979)Indication: Osteopenia On: 14-Seu-698444:41 Request LIPID PANEL (36161)Indication: Other hyperlipidemia On: 94-Ajg-807704:53 Request HgA1C , Office (73166)Indication: Diabetes mellitus type 2, controlled On: 51-Ipu-805289:23 Request CULTURE, SPUTUM (93322)Indication: Cough On: 35-Lfj-066471:46 Request HEPATIC FUNCTION PANEL (57096)Indication: Other and unspecified hyperlipidemia On: 13-Edw-102520:20 Request LIPID PANEL (38111)Indication: Other and unspecified hyperlipidemia On: 98-Htw-111687:20 Request FECAL OCCULT HGB ASSAY- tubes sent home (14757)Indication: Well woman exam with routine gynecological exam On: 43-Pac-41966:46 Request MICROALBUMIN URINE QUANT (16884)Indication: Diabetes mellitus type 2, controlled On: 47-Tia-260448:34 Request TSH (88789)Indication: Acquired hypothyroidism On: 02-Snz-421007:34 Request HEPATIC FUNCTION PANEL (52674)Indication: Other hyperlipidemia On: 68-Vgb-345769:34 Request LIPID PANEL (73000)Indication: Other hyperlipidemia On: 60-Vef-454744:34 Request METABOLIC PANEL, COMPREHENSIVE (41663)Indication: Other and unspecified hyperlipidemia On: 80-Fsk-107792:24 Request LIPID PANEL (67444)Indication: Other and unspecified hyperlipidemia On: 40-Gap-643748:23 Request HEPATIC FUNCTION PANEL (00562)Indication: Other and unspecified hyperlipidemia On: :29 Request LIPID PANEL (71881)Indication: Other and unspecified hyperlipidemia On: :29 Request HgA1C , Office (15188)Indication: Diabetes mellitus type 2, controlled On: :14 Request Thin prep Pap (60195)Indication: Well woman exam with routine gynecological exam On: :36 Request TSH (80339)Indication: Acquired hypothyroidism On: :33 Request MICROALBUMIN URINE QUANT (54963)Indication: Diabetes mellitus type 2, controlled On: :32 Request LIPID PANEL (57860)Indication: Other and unspecified hyperlipidemia On: :32 Request METABOLIC PANEL, COMPREHENSIVE (91980)Indication: Hypertension On: :32 Request CBC WITH MANUAL DIFF (59925)Indication: Hypertension On: :31 Request Planned Encounters Medical; [facility] Pre Wellness Exam (DF Nurse) - On: 05-Jul-2018 10:00 [facility] NURSE, DF Medical; [facility] Wellness Exam (Doctor) - On: 19-Jul-2018 13:30 [facility] Fast DO, Etta A Fast DO, Etta A Planned Procedures Flu Vaccine (Quadrivalent) On: 05-Apr-2018 Intent 55157Ft: Fast DO, Etta A Fast Comments: Lot #[id number]-L dltd, IMDose prefilled syringegiven by: CHRIS Moody reviewed and ABN signed DO, Etta A Cartoid DopplerBy: Fast DO, On: 21-Nov-2017 Intent Etta A Fast DO, Etta A Comments: 02/18 Radiology - Knee - Right - On: 13-Jul-2017 Intent Weight BearingBy: Fast DO, Etta A Fast DO, Etta A SCREENING DIGITAL TOMOSYNTHESIS On: 13-Jul-2017 Intent OF BREAST (83035)By: Dequan DO, Comments: END September Etta A Fast DO, Etta A ELECTROCARDIOGRAM, COMPLETE On: 13-Jul-2017 Intent (ECG) (26526)By: Fast DO, Etta A Fast DO, Etta A Flu Vaccine (Quadrivalent) On: 13-Apr-2017 Intent 26266Sh: Fast DO, Etta A Fast Comments: Lot:[id number]:10/2017Dose:0.5mLRoute:IMSite:L DltdGiven By:MADELYN guillermo DO, Etta A Cartoid DopplerBy: Dequan DO, On: 08-Nov-2016 Intent Etta A Fast DO, Etta A Comments: january DEXA SCAN AXIAL SKELETON On: 28-Jul-2016 Intent (25285)By: Dequan DO, Etta A Comments: end september Fast DO, Etta A SCREENING DIGITAL TOMOSYNTHESIS On: 28-Jul-2016 Intent OF BREAST (24603)By: Dequan DO, Etta A Fast DO, Etta A ELECTROCARDIOGRAM, COMPLETE On: 19-Apr-2016 Intent (ECG) (70485)By: Dequan DO, Etta A Fast DO, Etta A Flu Vaccine (Quadrivalent) On: 12-Mar-2016 Intent 27975Pv: Levy Busby Comments: FLUlot: [id number]:12/31/16site:Lt deltoidroute:IMdose:.5mlDEMICK, MA US DOPPLER CAROTID BILATERAL On: 06-Nov-2015 Intent (47363)By: Beatriz BARRIGA, Elena Fonseca MAMMOGRAM, SCREENING, BOTH On: 25-Aug-2015 Intent BREAST (78866)By: Dequan DO, Etta A Fast DO, Etta A Aerosol Treatment (86198)By: On: 15-Nov-2014 Intent Fátima Peoples LPN MAMMOGRAM, SCREENING, BOTH On: 20-Aug-2014 Intent BREAST (66032)By: Dequan DO, Etta A Fast DO, Etta A Flu Vaccine (Quadrivalent) On: 05-Jun-2014 Intent 02922Rx: Fast DO, Etta A Fast Comments: lot:[id number]:dose:0.5mLRoute: IMlocation: L armgiven by: geoffrey DO, Etta A ADMINISTRATION OF INFLUENZA On: 05-Jun-2014 Intent VIRUS VACCINE (G0008)By: Yoel Enciso Prevnar 13 (70529)By: Dequan NAG, On: 16-Apr-2014 Intent Etta A Fast DO, Etta A Comments: Lot:[id number]:07/19Dose:prefilled Route:imSite:la rmGiven By:MADELYN signed DEXA SCAN AXIAL SKELETON On: 16-Apr-2014 Intent (90191)By: Dequan DO Etta A Comments: you Fast DO, Etta A Radiology - Ankle - RightBy: On: 20-Aug-2013 Intent Fast DO, Etta A Fast DO, Etta A Eprescribed prescriptions On: 20-Aug-2013 Intent (G8553)By: Dequan ANG, Etta A Fast DO, Etta A MAMMOGRAM, SCREENING, BOTH On: 04-Apr-2013 Intent BREASTS (00484)By: Dequan ANG, Comments: jul Etta Singleton Fast DO, Etta A FLU VAC, SPLIT, >3 YEARS, On: 04-Apr-2013 Intent INTRAMUSC (14823)By: José Miguel, Comments: Lot #:[id number] date:mount given:0.5mlRoute: IMSite given: L dltdVIS and ABN signedGiven by: BEAR Edmond IMMUNIZ ADMNIN, 1 VAC, On: 04-Apr-2013 Intent SNGL/COMBO (25064)By: Manda Valdez Toradol Injection, 30 mg On: 07-Aug-2012 Intent (J1885)By: Alyson Capps CNP Comments: Lot: [id number]: 9.14Amt: 1mlRoute: IMSite: R GlutealGiven by: SHANTE Merritt CT - Abdomen & Pelvis Stone On: 07-Aug-2012 Intent ProtocolBy: Alyson Capps CNP Comments: today SPECIMEN HANDLING/TRANSPORT On: 07-Aug-2012 Intent (54691)By: Kary Werner LPN Eprescribed prescriptions On: 21-Jul-2012 Intent (G8553)By: Manda Valdez MAMMOGRAM, SCREENING, BOTH On: 29-Feb-2012 Intent BREASTS (15698)By: Dequan ANG, Comments: screening-dec Etta A Fast DO, Etta A DXA, BONE DENSITY, AXIAL On: 29-Feb-2012 Intent SKELETON (57282)By: Dequan ANG, Comments: jun Etta A Fast DO, Etta A EKG (68879)By: Etta Lopez DO On: 29-Feb-2012 Intent A Dequan ANG Etta A Comments: ekg showed normal sinus rhythym, normal axis, no acute st/t wave changes Eprescribed prescriptions On: 12-Nov-2011 Intent (G8553)By: Etta Lopez DO, DO, Etta A Radiology - ChestBy: Bonezzi On: 05-Nov-2011 Intent Elena BARRIGA Comments: call wet read. Inhaler Demonstration On: 29-Oct-2011 Intent (36086)By: Alyson Capps CNP Aerosol Treatment (81490)By: On: 29-Oct-2011 Intent Alyson Capps CNP PNEUM VAC ADLT/IMUMNOSPR, On: 28-Sep-2011 Intent SBC/INTRM (37299)By: Dequan ANG, Comments: Lot #: [id number] date: 03/16Amount given: 0.5 mlRoute: IMSite given: left deltoidGiven by: DAVIE Swartz DO, Debra A ADMINISTRATION OF PNEUMOCOCCAL On: 28-Sep-2011 Intent VACCINE (G0009)By: Etta Lopez DO, DO, Etta A MAMMOGRAM, SCREENING, BOTH On: 01-Jun-2011 Intent BREASTS (16956)By: Etta Lopez DO, DO Etta A TDAP VACCINE >7 IM (13747)By: On: 01-Jun-2011 Intent Manda Valdez Comments: refuses- allergic FLU VAC, SPLIT, >3 YEARS, On: 01-Jun-2011 Intent INTRAMUSC ([id number])By: José Miguel, Comments: work Manda FLU VAC, SPLIT, >3 YEARS, On: 27-Apr-2010 Intent INTRAMUSC ([id number])By: Rosi, Comments: Lot:[id number]:10/2010Dose:0.5mlRoute:IMSite:Left Deltoid Given by: BEAR Fritz IMMUNIZ ADMNIN, 1 VAC, On: 27-Apr-2010 Intent SNGL/COMBO ([id number])By: Phyllis Aranda DXA, BONE DENSITY, AXIAL On: 02-Mar-2010 Intent SKELETON ([id number])By: Fast DO, Etta A Fast DO, Etta A MAMMOGRAM, SCREENING, BOTH On: 02-Mar-2010 Intent BREASTS ([id number])By: Fast DO, Etta A Fast DO, Etta A Radiology - Hand - RightBy: On: 15-Dec-2009 Intent Alyson Capps CNP Comments: call wet read to [facility] Radiology - Finger(s) - On: 15-Dec-2009 Intent RightBy: Alyson Capps CNP Comments: call wet read Holter Monitor 24 hrsBy: Fast On: 29-Oct-2009 Intent DO, Etta A Fast DO, Etta A EKG ([id number])By: José Miguel, On: 29-Oct-2009 Intent Manda Comments: ekg showed normal sinus rhythym, normal axis, no acute st/t wave changes Radiology - Chest- PA and On: 30-Apr-2009 Intent LatBy: Fast DO, Etta A Fast DO, Etta A FLU VAC, SPLIT, >3 YEARS, On: 21-Apr-2009 Intent INTRAMUSC ([id number])By: José Miguel, Comments: Lot #:[id number] date:mount given:0.5mlRoute: IMSite given:left deltGiven by: BEAR Edmond IMMUNIZ ADMNIN, 1 VAC, On: 21-Apr-2009 Intent SNGL/COMBO ([id number])By: Manda Valdez Radiology - Chest- PA and On: 24-Sep-2008 Intent LatBy: Fast DO, Etta A Fast DO, Etta A Echo CompleteBy: Fast DO, Etta On: 24-Sep-2008 Intent A Fast DO, Etta A Bio Z ([id number])By: Fast DO, Etta On: 24-Sep-2008 Intent A Fast DO, Etta A Comments: done-awnormal paremteres EKG ([id number])By: Fast DO, Etta On: 24-Sep-2008 Intent A Fast DO, Etta A Comments: done-awekg showed normal sinus rhythym, normal axis, no acute st/t wave changes Spirometry ([id number])By: Fast DO, On: 24-Sep-2008 Intent Etta A Fast DO, Etta A Comments: done-awgood effort and curve normal Pulse Oximetry ([id number])By: Fast On: 24-Sep-2008 Intent DO, Etta A Fast DO, Etta A Comments: 97% MAMMOGRAM, SCREENING, BOTH On: 25-Jun-2008 Intent BREASTS ([id number])By: Fast DO, Etta A Fast DO, Etta A Spirometry ([id number])By: Dequan ANG, On: 26-Mar-2008 Intent Etta A Fast DO, Etta A Comments: good effort and curve normal EKG ([id number])By: José Miguel, On: 29-Dec-2007 Intent Manda Comments: ekg showed normal sinus rhythym, normal axis, no acute st/t wave changes DXA, BONE DENSITY, AXIAL On: 26-Sep-2007 Intent SKELETON ([id number])By: Dequan ANG, Comments: postmenopausal without estrogen Etta A Fast DO, Etta A EKG ([id number])By: Crow Lopez DOa On: 27-Oct-2006 Intent A Fast DO, Etta A Comments: ekg showed normal sinus rhythym, normal axis, no acute st/t wave changes Bone Density StudyBy: Dequan ANG, On: 13-Sep-2006 Intent Etta A Fast DO, Etta A Comments: post menopausal without estrogen MAMMOGRAM, SCREENING, BOTH On: 13-Sep-2006 Intent BREASTS ([id number])By: Crow Lopez DOa A Fast DO, Etta [...] health information online Indication: [facility] : How to access health information online - Detail Indication: [facility] : Patient Instructions Indication: [facility] [...] Scanned Document is available upon request. Encounters Office Visit On: 05-Apr-2018 10:59 Encounter Diagnosis: [...] still working on the weight and down [employer] 37 pounds over t he years - [...] for Follow up for chronic medical issues: emmacata emma has been amazing- 120/70-s on average- - [...] appropriate balanced diet. Exercises 2 (walks on [employer] [place] when her back allows it) days [...] do not include nausea, vomiting or fever. End: 06-Jan-2015 8:03 e patient describes this [...] has been compliant with instructions. Nallely End: 04-Apr-2013 14:07 t medication use: no [...] REASON] Follow up tests - Date: (cxr 5..12). Encounter Diagnosis: Bacterial pneumonia, unspecified (482.9) Comprehensive [...] issues: she is feeling well although allergy seson is coming - so she will start using her meds as needed- bps are good at ho mn and weight down another pounds- sugars are [...] 18-Mar-2006 22:54 [facility]
--- OUTSIDE RECORDS SUMMARY | 2018-09-27 09:32 | XMS RPT_ITS ---
:1940 Author Organization [place] Support Name Relationship Address Phone [employer] Unavailable [address] + [place] [address] CURTIS SCOTT Unavailable [address] + [place] [address] ESTHELA BACA Unavailable [address] + [place] [address] [employer] Unavailable [address] + [place] [address] CURTIS SCOTT Unavailable [address] + [place] [address] TR BACAIN Unavailable [address] + [place] [address] [employer] Unavailable [address] + [place] [address] CURTIS SCOTT Unavailable [address] + [place] [address] ESTHELA BACA Unavailable [address] + [place] [address] [employer] Unavailable [address] + [place] [address] CURTIS SCOTT Unavailable [address] + [place] [address] TR BACAIN Unavailable [address] + [place] [address] [employer] Unavailable [address] + [place] [address] CURTIS SCOTT Unavailable [address] + [place] [address] ESTHELA BACA Unavailable [address] + [place] [address] [employer] Unavailable [address] + [place] [address] CURTIS SCOTT Unavailable [address] + [place] [address] ESTHELA ABCA Unavailable [address] + [place] [address] [employer] Unavailable [address] + [place] [address] CURTIS SCOTT Unavailable [address] + [place] [address] ESHTELA BACA Unavailable [address] + [place] [address] [employer] Unavailable [address] + [place] [address] CURTIS SCOTT Unavailable [address] + [place] [address] ESTHELA BACA Unavailable [address] + [place] [address] [employer] Unavailable [address] + [place] [address] CURTIS SCOTT Unavailable [address] + [place] [address] ESTHELA BACA Unavailable [address] + [place] [address] [employer] Unavailable [address] + [place] [address] CURTIS SCOTT Unavailable [address] + [place] [address] ESTHELA BACA Unavailable [address] + [place] [address] [employer] Unavailable [address] + [place] [address] CURTIS SCOTT Unavailable [address] + [place] [address] ESTHELA BACA Unavailable [address] + [place] [address] [employer] Unavailable [address] + [place] [address] CURTIS SCOTT Unavailable [address] + [place] [address] ESTHELA BACA Unavailable [address] + [place] [address] [employer] Unavailable [address] + [place] [address] CURTIS SCOTT Unavailable [address] + [place] [address] TR BACAIN Unavailable [address] + [place] [address] [employer] Unavailable [address] + [place] [address] CURTIS SCOTT Unavailable [address] + [place] [address] ESTHELA BACA Unavailable [address] + [place] [address] [employer] Unavailable [address] + [place] [address] CURTIS SCOTT Unavailable [address] + [place] [address] ESTHELA BACA Unavailable [address] + [place] [address] [employer] Unavailable [address] + [place] [address] CURTIS SCOTT Unavailable [address] + [place] [address] TR BACAIN Unavailable [address] + [place] [address] [employer] Unavailable [address] + [place] [address] CURTIS SCOTT Unavailable [address] + [place] [address] TR BACAIN Unavailable [address] + [place] [address] Care Team Providers Name Role Phone Fast DO, Hailey A Attending Unavailable Fast DO, Hailey A Referring Unavailable Fast DO, Hailey A Consulting Unavailable Margaret, Attending Unavailable Margaret, [place] Referring Unavailable Fast, Hailey Primary Care Unavailable Dewey Teran Consulting Unavailable Margaret, [place] Attending Unavailable Margaret, Referring Unavailable Fast, Hailey Primary Care Unavailable Dewey Teran Consulting Unavailable Margaret, Attending Unavailable Margaret, Referring Unavailable Fast, Hailey Primary Care Unavailable Margaret, Consulting Unavailable JanDewey lennon Attending Unavailable Fast, Hailey Primary Care Unavailable Margaret, Attending Unavailable Margaret, [place] Referring Unavailable Fast, Hailey Primary Care Unavailable Margaret, [place] Attending Unavailable Margaret, Referring Unavailable Fast, Hailey Primary Care Unavailable JanDewey lennon Consulting Unavailable Fast, Hailey Primary Care Unavailable Margaret, Attending Unavailable Margaret, [place] Referring Unavailable Margaret, Attending Unavailable Margaret, Referring Unavailable Fast, Hailey Primary Care Unavailable Fast, Hailey Attending Unavailable Fast, Hailey Referring Unavailable Fast, Hailey Primary Care Unavailable Margaret, Attending Unavailable Margaret, [place] Referring Unavailable Fast, Hailey Primary Care Unavailable Fast, Hailey Attending Unavailable Fast, Hailey Primary Care Unavailable Margaret, [place] Attending Unavailable Margaret, [place] Referring Unavailable Fast, Hailey Primary Care Unavailable Fast, Hailey Attending Unavailable Fast, Hailey Primary Care Unavailable Margaret, [place] Attending Unavailable Fast, Hailey Referring Unavailable RoofBismark Attending Unavailable Fast, Hailey Referring Unavailable Fast, Hailey Primary Care Unavailable Margaret, [place] Attending Unavailable Margaret, [place] Referring Unavailable Fast, Hailey Primary Care Unavailable Margaret, Attending Unavailable Margaret, Referring Unavailable Fast, Hailey Primary Care Unavailable Janas, Dewey Consulting Unavailable PROBLEMS PROBLEMS DATE TYPE CONDITION / CODE ATTENDING STATUS SOURCE 07/03/2018 Unknown I48.0 - Paroxysmal Margaret, Active [place] atrial fibrillation Community / I48.0(ICD-10) Hospital Repository 06/06/2018 Unknown Z01.818 - Encounter Margaret, Active [place] [facility] for other Community preprocedural Hospital examination / Repository Z01.818(ICD-10) 04/11/2018 Unknown R01.1 - Cardiac Margaret, Active [place] murmur, unspecified Community / R01.1(ICD-10) Hospital Repository 03/28/2018 Unknown I10 - Essential Margaret, [place] Active [place] (primary) Community hypertension / Hospital I10(ICD-10) Repository 03/28/2018 Unknown E78.5 - Margaret, [place] Active [place] Hyperlipidemia, Community unspecified / Hospital E78.5(ICD-10) Repository 02/06/2018 Unknown 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, 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 [facility] bilateral carotid Hospital arteries / Repository I65.23(ICD-10) 10/05/2017 Unknown Z12.31 - Encounter Fast, Hailey Active [place] for screening Community mammogram for Hospital malignant neoplasm Repository of breast / Z12.31(ICD-10) PROCEDURES PROCEDURES No Procedure Records FoundRESULTS RESULTS PROTIME W/INR Collected: 07/26/2018 Status: F Source: [place] FINGERSTICK 11:52 AM [facility] REPOSITORY TYPE CODE TESTS RESULT OUT OF REFERENCE UNITS RANGE LAB L9200.1001 11.9-14.4 SEC High PROTIME ISTAT 32.6 Result Comment: Reference Range 11.9 - 14.4 LAB L9200.2000 Normal INR ISTAT 2.90 Result Comment: Critical Value > 3.5 Performed By: #### L9200.0000 #### [facility] Point of Care [address] [place] [address]. [place] [address] PROTIME W/INR Collected: 06/14/2018 Status: F Source: [place] FINGERSTICK 12:01 PM [facility] REPOSITORY TYPE CODE TESTS RESULT OUT OF REFERENCE UNITS RANGE LAB L9200.1001 11.9-14.4 SEC High PROTIME ISTAT 21.7 Result Comment: Reference Range 11.9 - 14.4 LAB L9200.2000 Normal INR ISTAT 1.90 Result Comment: Critical Value > 3.5 Performed By: #### L9200.0000 #### [facility] Point of Care [address] [place] [address] PROTIME W/INR Collected: 05/15/2018 Status: F Source: [place] FINGERSTICK 11:03 AM [facility] REPOSITORY TYPE CODE TESTS RESULT OUT OF REFERENCE UNITS RANGE LAB L9200.1001 11.9-14.4 SEC High PROTIME ISTAT 38.3 Result Comment: Reference Range 11.9 - 14.4 LAB L9200.2000 Normal INR ISTAT 3.40 Result Comment: Critical Value > 3.5 Performed By: #### L9200.0000 #### [facility] Point of Care [address] [place], [place] [address] CBC-COMPLETE BLOOD CNT Collected: 04/12/2018 Status: F Source: [place] NO DIFF 12:55 PM [facility] REPOSITORY Order Comment: DR ROBLES ORDERED PT DEWEY TERAN ORDERED CBC/BMP TYPE CODE TESTS RESULT OUT [...] MPV 10.1 Performed By: #### L100.0500 #### [facility] [place], [place], [id number] PROTHROMBIN TIME W/INR Collected: 04/12/2018 Status: F Source: [place] 12:55 PM [facility] REPOSITORY Order Comment: DR ROBLES ORDERED PT DEWEY TERAN ORDERED CBC/BMP TYPE CODE TESTS RESULT OUT OF RANGE REFERENCE UNITS LAB L300.4150 11.7-14.9 SECONDS Normal PROTIME 13.3 LAB L300.4200 Normal INR 1.0 Performed By: #### L300.3900 #### [facility] [address] [place], [place] [address], [place], [address] BASIC METABOLIC Collected: 04/12/2018 Status: F Source: [place] PROFILE (BMP) 12:55 PM [facility] REPOSITORY Order Comment: DR ROBLES ORDERED PT DEWEY TERAN ORDERED CBC/BMP TYPE CODE TESTS RESULT OUT [...] GAP 8 Performed By: #### L500.2500 #### [facility] [address] [facility] [place], [address] ECHOCARDIOGRAM COMPLETE Observed: 04/11/2018 Status: F Source: [place] 5:13 PM [facility] REPOSITORY [facility] Cardiovascular Services [address] [place] [address] Echo Complete 04/11/18 1052 MR#: [id number] Acct: [id number] Name: YOEL SCOTT Rep #: [id number] : 1940 77 From: Cyril Robles MD Attending Dr: yCril Robles MD Status: REG CLI Ordering Dr: Cyril Robles MD Date: 04/11/18 Location: [facility] Sex: F C Admitted: Reason For Study: [...] diastolic dysfunction (reversed pattern). Ordering Physician: Cyril Robles Referring Physician: HAILEY LOPEZ Performed By: Jessica Nicholas, BEVERLY, RVT 04/11/181711 Date Cyril Robles MD CC: Cyril Robles MD; Hailey Lopez DO Date Dictated: 04/11/18 105 Date Transcribed: 04/11/181711 Hip Hop Dancer: Signed CARDIOLOGY VISIT Observed: 03/28/2018 Status: F Source: [place] REPORT 3:37 PM [facility] REPOSITORY [facility] [address] [place] [address] OFFICE VISIT Date of Service: 03/28/18 MR#: [id number] Acct: [id number] Name: YOEL SCOTT Rep #: [id number] : 1940 Provider: Cyril Robles MD Age/Sex: 77/F [place] [facility] [place]: Signed HPI HPI Chief Complaint: Follow-up [...] Lt brachial Intake Visit Reasons: 6 M Litigation Legal Secretary Required: No Accompanied by: none Is patient [...] PO DAILY 08/28/16 [History Confirmed 03/28/18] Gluc Gonzalez/Chondro Gonzalez A/Vit C/Mn [Glucosamine [...] BID #180 tab 11/02/17 [Rx Confirmed 03/28/18] [facility] 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) Atrial fibrillation [...] Other Medications Discontinued: 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) Coding Level of Care Code Off vis,est,level 3 Diagnoses Hypertension I10 Hyperlipidemia E78.5 Paroxysmal atrial fibrillation I48.0 Murmur, cardiac R01.1 Coding Level of Care Code Off vis,est,level 3 Diagnoses Hypertension I10 Hyperlipidemia E78.5 Paroxysmal atrial fibrillation I48.0 Murmur, cardiac R01.1 03/28/18 1537 <Electronically signed by Cyril Robles MD> Date Cyril Robles MD Cosigner Signature: Date (if applicable) CC: Hailey Lopez DO 12 LEAD EKG PERFORMED Observed: 03/28/2018 Status: F Source: [place] BY DANK 3:10 PM [facility] REPOSITORY [facility] [address] [place] [address] 12 Lead EKG performed by DANK 03/28/18 1506 MR#: [id number] Acct: [id number] Name: YOEL SCOTT Rep #: [id number] : 1940 77 From: Cyril Robles MD Attending Dr: Cyril Robles MD Status: DEP AMB Ordering Dr: Cyril Robles MD Date: 03/28/18 Location: [facility] Sex: F C Admitted: BMS/12 Lead EKG performed by [facility] ECG Report Interpretation Sinus Bradycardia Low voltage in precordial leads. - Negative precordial T-waves -Probably normal -consider anteroseptal ischemia. ABNORMAL Electronically signed on 06/07/2018 at 11:38 by Cyril Robles Software Version [id number] 06/07/18 1146 Date Cyril Robles MD CC: Hailey Lopez DO Date Dictated: 03/28/18 1506 Date Transcribed: 03/28/18 1506 Hip Hop Dancer: CO Signed PROTIME W/INR Collected: 02/10/2018 Status: F Source: [place] FINGERSTICK 1:04 PM [facility] REPOSITORY TYPE CODE TESTS RESULT OUT OF REFERENCE UNITS RANGE LAB L9200.1001 11.9-14.4 SEC High PROTIME ISTAT 31.1 Result Comment: Reference Range 11.9 - 14.4 LAB L9200.2000 Normal INR ISTAT 2.70 Result Comment: Critical Value > 3.5 Performed By: #### L9200.0000 #### [facility] Point of Care [address] [place] [address] CAROTID DUPLEX Observed: 02/08/2018 Status: F Source: [place] ULTRASOUND 7:51 AM [facility] REPOSITORY [facility] Cardiovascular Services [address] [place] [address] Carotid Duplex Ultrasound 02/06/18 0958 MR#: [id number] Acct: [id number] Name: TOYIN SCOTTDADA Patten Rep #: [id number] : 1940 77 From: Hermann Gaspar MD Attending Dr: Hailey Lopez DO Status: REG CLI Ordering Dr: Hailey Lopez DO Date: 02/06/18 Location: [facility] Sex: F C Admitted: Reason For Study: [...] the left vertebral artery. Procedure Carotid Duplex 29149. Exam performed in department. Interpretation Summary Mild (<50%) stenosis right extracranial internal carotid. Moderate (50-69%) stenosis left extracranial internal carotid. Flow within the vertebral arteries is antegrade bilaterally. Ordering Physician: Hailey Lopez Referring Physician: Hailey Lopez Performed By: Alyssa Rodrigues, BEVERLY, RVT 02/08/18 0750 Date Hermann Gaspar MD CC: Hailey Lopez DO Date Dictated: 02/06/1858 Date Transcribed: 02/08/18749 Hip Hop Dancer: Signed PROTIME W/INR Collected: 01/16/2018 Status: F Source: [place] FINGERSTICK 11:47 AM [facility] REPOSITORY TYPE CODE TESTS RESULT OUT OF REFERENCE UNITS RANGE LAB L9200.1001 11.9-14.4 SEC High PROTIME ISTAT 29.1 Result Comment: Reference Range 11.9 - 14.4 LAB L9200.2000 Normal INR ISTAT 2.50 Result Comment: Critical Value > 3.5 Performed By: #### L9200.0000 #### [facility] Point of Care [address] [facility] [place] [address] PROTIME W/INR Collected: 11/02/2017 Status: F Source: [place] FINGERSTICK 11:22 AM [facility] REPOSITORY TYPE CODE TESTS RESULT OUT OF REFERENCE UNITS RANGE LAB L9200.1001 11.9-14.4 SEC High PROTIME ISTAT 32.8 Result Comment: Reference Range 11.9 - 14.4 LAB L9200.2000 Normal INR ISTAT 2.90 Result Comment: Critical Value > 3.5 Performed By: #### L9200.0000 #### [facility] Point of Care [address] [facility] [place] [address] SCREENING MAMM (CAD), Observed: 10/05/2017 Status: F Source: [place] BILAT 11:59 AM [facility] REPOSITORY [facility] Imaging Services [address] [place] [address] SCREENING MAMM (CAD), BILAT MR#: [id number] Acct: [id number] Name: YOEL SCOTT Rep #: [id number] : 1940 F 77 From: Elmer Sexton MD PCP: Hailey Lopez DO Status: REG CLI Study: SCREENING MAMM (CAD), BILAT Date of Exam: 10/05/17 Exam# [id number] Ordering Dr: Hailey Lopez DO MAMMOGRAPHY - [...] delay biopsy of a clinically suspicious abnormality. [id number] Electronically Signed: Elmer Sexton MD at 13:49 EDT Tel [phone], Service support , CC: Hailey Lopez DO Hip Hop Dancer: Signed PROTHROMBIN TIME W/INR Collected: 09/30/2017 Status: F Source: [place] 1:47 PM [facility] REPOSITORY TYPE CODE TESTS RESULT OUT OF RANGE REFERENCE UNITS LAB L300.4150 11.7-14.9 SECONDS High PROTIME 24.8 LAB L300.4200 Normal INR 2.2 Performed By: #### L300.3900 #### [facility] [address] [place], [address] PROTIME W/INR Collected: 09/16/2017 Status: F Source: [place] FINGERSTICK 12:10 PM [facility] REPOSITORY TYPE CODE TESTS RESULT OUT OF REFERENCE UNITS RANGE LAB L9200.1001 11.9-14.4 SEC High PROTIME ISTAT 37.3 Result Comment: Reference Range 11.9 - 14.4 LAB L9200.2000 Normal INR ISTAT 3.30 Result Comment: Critical Value > 3.5 Performed By: #### L9200.0000 #### [facility] Point of Care [address] [place], [place] [address] CARDIOLOGY VISIT Observed: 09/02/2017 Status: F Source: [place] REPORT 4:30 PM [facility] REPOSITORY [facility] 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) Coding Level of Care Code Off vis,est,level 3 Diagnoses Paroxysmal atrial fibrillation I48.0 Essential hypertension I10 Hypertension type: essential hypertension Mixed hyperlipidemia E78.2 Hyperlipidemia type: mixed hyperlipidemia Coding Level of Care Code Off vis,est,level 3 Diagnoses Paroxysmal atrial fibrillation I48.0 Essential hypertension I10 Hypertension type: essential hypertension Mixed hyperlipidemia E78.2 Hyperlipidemia type: mixed hyperlipidemia 09/02/17 1630 <Electronically signed by Bismark CALLES> Date Bismark CALLES Cosigner Signature: Date (if applicable) CC: Hailey Lopez DO ALLERGIES ALLERGIES DATE TYPE / CODE NAME / CODE REACTION SEVERITY SOURCE 03/28/2018 Drug Penicillins/F0 Other Unknown [place] [facility] Allergy/4160 01333259(RXNOR Hospital 92225(SNOMED M) Repository CT) 03/28/2018 Drug tetanus Swelling Unknown [facility] Allergy/4160 toxoid, Hospital 40064(SNOMED adsorbed/F0060 Repository CT) [address]98[address](RXNORM) ENCOUNTERS ENCOUNTERS ADMIT/DISCHARGE ACCOUNT ADMITTING ENCOUNTER LOCATION SOURCE NUMBER CLASS 07/26/2018 [id number] Ambulatory [place] 1 [facility] ing:MTLAB Repository 07/19/2018 6278 Ambulatory Building:[facility] Repository 06/14/2018/ [id number] Ambulatory [place] 8 1 [facility] ing:MTLAB Repository 05/15/2018/ [id number] Ambulatory [place] 8 5 [facility] ing:MTLAB Repository 04/12/2018/ [id number] Ambulatory [place] 8 2 [facility] ing:MTLAB Repository 04/11/2018 [id number] Ambulatory BMSBuilding:B [place] 5 CF.[facility] Repository 04/11/2018 [id number] Ambulatory [place] 5 [facility] ing:[facility] Repository 04/11/2018 [id number] Ambulatory [place] 5 [facility] ing:LAB.FUTUR Repository E 03/28/2018/ [id number] Ambulatory BMSBuilding:B [place] 8 4 MS[facility] Repository 02/11/2018 [id number] Ambulatory [place] 9 [facility] ing:MTLAB Repository 02/10/2018/ [id number] Ambulatory [place] 8 1 [facility] ing:MTLAB Repository 02/06/2018 [id number] Ambulatory [place] 1 [facility] ing:[facility] Repository 01/16/2018/ [id number] Ambulatory [place] 8 0 [facility] ing:MTLAB Repository 11/02/2017/ [id number] Ambulatory [place] 8 9 [facility] ing:MTLAB Repository 10/05/2017 [id number] Ambulatory [place] 8 [facility] ing:BI Repository 10/05/2017 [id number] Ambulatory [place] 9 [facility] ing:OPBI Repository 09/30/2017/ [id number] Ambulatory [place] 8 7 [facility] ing:MTLAB Repository 09/02/2017/ [id number] Ambulatory BMSBuilding:B [place] 8 3 [facility] Repository PAYERS PAYERS ENCOUNTER GUARANTOR PAYER SUBSCRIBER SOURCE 07/26/2018 YOEL J Primary NOT GIVENUNK [place] [id number] TR Insurance:SELF PAY [address] [address]Rql: (330) Number: Effective Repository [phone] () Date:2018-07-03 07/19/2018 YOEL J Primary YOEL J OHIP Practices ELIOTDOB: Insurance:Medical ELIOTDOB: Repository [id number] [facility] [id number] Number: [address] [place] [address] [id number] [place] [phone]: ([phone]) Date:3985-01-87Cstm 19348Lbb: () Name:[facility] [phone] () [address], [place] [id number]: 07/19/2018 Secondary YOEL J OHIP Practices [facility]: Repository l Benefits [id number] AdminPolicy Number: [id number] [place] [address] Date:2001-11-01 00878Mmc: [phone] [id number] [phone] () Name:[id number] [place], [place] [address]BK: 07/19/2018 Tertiary YOEL J OHIP Practices Insurance:First ELIOTDOB: Repository Federal [employer] [id number] [employer]Policy [address] Number: Effective [address] [place] [address] Date: [address]Gwu: [phone] [id number] 496 () Name:[id number] [place] [address]PH: 07/19/2018 Tertiary YOEL J OHIP Practices Insurance:[facility] ELIOTDOB: Repository ChoicePolicy Number: [id number] [address] Date:2011-03-[address] [place] [address] [id number] [id number]: (330) Name:[facility] [phone] () [place] [address]ZG: [phone] 06/14/2018 YOEL J Primary Insurance:MED YOEL J [place] [id number] TR GARVIN TPAPolic ELIOTDOB: [address] Number: [id number] Hospital [address]Fkl: (192) [id number] Repository [phone] () Date:4799-43-41HL [address] [address], [place] [address]KY: CHECK WEBSITE 06/14/2018 Secondary NOT GIVENUNK [place] Insurance:SELF PAY [facility] Number: Effective Repository Date:2018-06-06 05/15/2018 YOEL Patten Primary Insurance:MED YOEL J [place] [id number] TR MUTUAL TPAPolicy ELIOTDOB: [address] Number: [id number] Hospital [address]Tqk: 330 [id number] Repository [phone] () Date:5184-27-82VX [address] [address], [place] [address]RO: CHECK WEBSITE 05/15/2018 Secondary NOT GIVENUNK [place] Insurance:SELF PAY [facility] Number: Effective Repository Date:2018-05-04 04/12/2018 YOEL Earline Primary Insurance:MED YOEL J [place] [id number] TR MUTUAL TPAPolicy ELIOTDOB: [address] Number: [id number] Hospital [address]Syw: 330 [id number] Repository [phone] (HP) Date:8735-83-94WZ [address] [address], [place] [address]ML: CHECK WEBSITE 04/12/2018 Secondary NOT GIVENUNK [place] Insurance:SELF PAY [facility] Number: Effective Repository Date:2018-03-08 04/11/2018 YOEL Patten Primary Insurance:MED YOEL J [place] [id number] TR MUTUAL TPAPolicy ELIOTDOB: [address] Number: [id number] Hospital [id number]: 330 [id number] Repository [phone] () Date:4724-63-10UW [address] [address]FXQPDYFW[place], [place] [address]KS: CHECK WEBSITE 04/11/2018 Secondary NOT GIVENUNK [place] Insurance:SELF PAY [facility] Number: Effective Repository Date:2018-04-11 04/11/2018 YOEL Patten Primary Insurance:MED YOEL J [place] [id number] TR MUTUAL TPAPolicy ELIOTDOB: [address] Number: [id number] Hospital [id number]: 330 [id number] Repository [phone] () Date:9624-71-29JQ [address] [address], [place] [address]EE: CHECK WEBSITE 04/11/2018 Secondary NOT GIVENUNK [place] Insurance:SELF PAY [facility] Number: Effective Repository Date:2018-03-28 04/11/2018 YOEL Patten Primary Insurance:MED YOEL J [place] [id number] TR MUTUAL TPAPolicy ELIOTDOB: [address] [address] Number: [id number] [address]Lvc: [phone] [id number] Repository [phone] () Date:5667-37-99BG [address] [address], [place] [address]OF: CHECK WEBSITE 04/11/2018 Secondary NOT GIVENUNK [place] Insurance:SELF PAY [facility] Number: Effective Repository Date:2018-04-11 03/28/2018 YOEL Patten Primary Insurance:MED YOEL J [place] [id number] TR MUTUAL TPAPolicy ELIOTDOB: [address] Number: [id number] [facility] [address]Qfz: 330 [id number] Repository [phone] () Date:8754-17-61OY [address] [address], [place] [address]FM: CHECK WEBSITE 03/28/2018 Secondary NOT GIVENUNK [place] Insurance:SELF PAY [facility] Number: Effective Repository Date:2018-03-28 02/11/2018 YOEL Patten Primary Insurance:MED YOEL J [place] [id number] TR MUTUAL TPAPolicy ELIOTDOB: [address] Number: [id number] [facility] [address]Qiq: [phone] [id number] Repository [phone] () Date:3627-21-83AF [address] [address], [place] [address]YL: CHECK WEBSITE 02/11/2018 Secondary NOT GIVENUNK [place] Insurance:SELF PAY [facility] Number: Effective Repository Date:2018-02-03 02/10/2018 YOEL Patten Primary Insurance:MED YOEL J [place] [id number] TR MUTUAL TPAPolicy ELIOTDOB: [address] Number: [id number] [facility] [address]Uhc: [phone] [id number] Repository [phone] () Date:9423-65-40AN [address] [address]JO[place], [place] [address]UZ: CHECK WEBSITE 02/10/2018 Secondary NOT GIVENUNK [place] Insurance:SELF PAY [facility] Number: Effective Repository Date:2018-02-10 02/06/2018 YOEL Patten Primary Insurance:MED YOEL J [place] [id number] TR MUTUAL TPAPolicy ELIOTDOB: [address] Number: [id number] [facility] [address]Npw: 330 [id number] Repository [phone] () Date:7620-84-38YF [address] [address], [place] [address]FK: CHECK WEBSITE 02/06/2018 Secondary NOT GIVENUNK [place] Insurance:SELF PAY [facility] Number: Effective Repository Date:2017-11-21 01/16/2018 YOEL Patten Primary Insurance:MED YOEL J [place] [id number] TR MUTUAL TPAPolicy ELIOTDOB: [address] Number: [id number] [facility] [address]Zlz: 330 [id number] Repository [phone] () Date:4835-86-98EL [address] [address], [place] [address]QD: CHECK WEBSITE 01/16/2018 Secondary NOT GIVENUNK [place] Insurance:SELF PAY [facility] Number: Effective Repository Date:2017-12-01 11/02/2017 YOEL Patten Primary Insurance:MED YOEL J [place] [id number] TR MUTUAL TPAPolicy ELIOTDOB: [address] Number: [id number] [facility] [address]Mlr: 330 [id number] Repository [phone] () Date:9192-85-85VW [address] [address], [place] [address]WD: CHECK WEBSITE 11/02/2017 Secondary NOT GIVENUNK [place] Insurance:SELF PAY [facility] Number: Effective Repository Date:2017-10-03 10/05/2017 YOEL Patten Primary Insurance:MED YOEL J [place] [id number] TR MUTUAL TPAPolicy ELIOTDOB: [address] Number: [id number] [facility] [address]Tfz: 330 [id number] Repository [phone] (HP) Date:6983-17-53YM [address] [address]B, [place] [address]BQ: CHECK WEBSITE 10/05/2017 Secondary NOT GIVENUNK [place] Insurance:SELF PAY [facility] Number: Effective Repository Date:2017-10-05 10/05/2017 YOEL J Primary Insurance:MED YOEL J [place] [id number] TR MUTUAL TPAPolicy ELIOTDOB: [address] Number: [id number] [facility] [address]Aou: 330 [id number] Repository [phone] () Date:6016-61-64ZE [address] [address], [place] [address]BZ: CHECK WEBSITE 10/05/2017 Secondary NOT GIVENUNK [place] Insurance:SELF PAY [facility] Number: Effective Repository Date:2017-07-13 09/30/2017 YOEL Patten Primary Insurance:MED YOEL J [place] [id number] TR MUTUAL TPAPolicy ELIOTDOB: [address] Number: [id number] [facility] [address]Dpd: 330 [id number] Repository [phone] () Date:6109-57-42XM [address] [address]FHB[place]W, [place] [address]NI: CHECK WEBSITE 09/30/2017 Secondary NOT GIVENUNK [place] Insurance:SELF PAY [facility] Number: Effective Repository Date:2017-08-05 09/02/2017 YOEL Patten Primary Insurance:MED YOEL J [place] [id number] TR MUTUAL TPAPolicy ELIOTDOB: [address] Number: [id number] [facility] [address]Bwc: 330 [id number] Repository [phone] (HP) Date:6753-52-31MZ [address] [address]OO[place]CP, [place] [address]YR: CHECK WEBSITE 09/02/2017 Secondary NOT GIVENUNK [place] Insurance:SELF PAY [facility] Number: Effective Repository Date:2017-06-11
== END 2018-07-26 13:00 | disposition home or self-care (01) ==
LOC: MTLAB 11:37
PROVIDERS: Family Provider Internal Medicine; PCP Internal Medicine; Referring Provider Internal Medicine Cardiovascular Disease; Visit Provider Internal Medicine Cardiovascular Disease
DX: I48.0 Paroxysmal atrial fibrillation (principal); Z79.01 Long term (current) use of anticoagulants
CPT/HCPCS: 36416; 85610

== ENCOUNTER → 2018-08-03 14:32 | Outpatient (CLI) | payer SELFPAY ==
[2018-03-28 14:59] VITALS: BMI 37.5
[2018-08-03 14:51] VITALS: BP 207/59; PULSE 60; RESP 18; O2SAT 97; BMI 37.3
--- NOTE | 2018-08-03 15:20 | CT_ITS ---
STUDY: CT CHEST WITHOUT CONTRAST REASON FOR EXAM: Female, 78 years old. Hyperlipidemia. Calcium scoring examination. Radiological ovary. RADIATION DOSAGE (If Supplied By Facility): CTDIvol = ( 12.19 ) mGy, DLP = ( 243.79 ) mGycm TECHNIQUE: Transaxial imaging was performed without the administration of intravenous contrast material. Individualized dose optimization techniques were used for this CT. COMPARISON: None. FINDINGS: Small benign-appearing bilateral axillary lymph nodes. Increased linear markings at the lung bases suggestive of bone scarring. Mild degree of bronchiectasis. There is no demonstrated pleural abnormality. There are calcifications of the coronary arteries. There are multiple small lymph nodes within the mediastinum, which are normal in size and morphology most compatible with reactive lymph hyperplasia. Normal hilar regions. Normal unenhanced pulmonary arteries. There is atherosclerotic calcification of the aortic arch. There are degenerative changes of the thoracic spine. There is no demonstrated abnormality of the visualized upper abdomen. CT/Limited Chest CT w/CCTA IMPRESSION: Normal unenhanced CT Chest examination. Electronically Signed: Elmer Sexton MD at 13:35 EST , Service support ,
--- NOTE | 2018-08-03 16:24 | CA.SCORE ---
Calcium Scoring Date of Study:: 08/03/18 Coronary Calcium Scoring: Coronary calcium scoring. High-resolution computed tomographic imaging of the chest was performed on 08/03/2018 with particular attention paid to the coronary arteries. Images from the examination were analyzed for the presence and extent of coronary artery calcification using the coronary calcification software. The patient tolerated the procedure well there were no complications. The results of the coronary calcification analysis are provided below. Left main coronary artery score 0 Left anterior descending artery score 268 Left circumflex artery score 0 Right coronary artery score 0 Total Agagston score 268. The above places the patient between the 75th and 90th percentile ranking. The above is suggestive of moderate nonobstructive coronary artery disease present.
== END ==
PROVIDERS: Family Provider Internal Medicine; PCP Internal Medicine; Referring Provider Internal Medicine; Visit Provider Internal Medicine
DX: E78.5 Hyperlipidemia, unspecified (principal)
CPT/HCPCS: 75571; 76380

== ENCOUNTER → 2018-08-18 06:43 | Outpatient (CLI) | payer OTHER, SELFPAY ==
[2018-08-03 14:51] VITALS: BMI 37.3
--- NOTE | 2018-08-18 09:07 | STRESSREP ---
Stress Test Report Pharmacologic myocardial perfusion stress test. 78-year-old lady with a history of chest pain. Stress protocol: Resting EKG demonstrates normal sinus rhythm with a rate of 63 bpm normal intervals are noted resting blood pressure 160/78 mmHg. 0.4 mg of regadenoson was infused per usual protocol 0.4 mg of regadenoson was infused per usual protocol. The maximum heart rate attained was 80 bpm which was 56% of maximum predicted heart rate the maximum workload was 1 metabolic equivalent. At rest there were no ST or T wave changes noted suggest ischemia at peak infusion nonspecific ST-T wave changes were noted. The resting blood pressure 160/78 with a peak blood pressure 170/64. Myocardial perfusion protocol. 10.0 mCi of technetium 99m sestamibi was injected at rest. 0.4 mg of regadenoson was infused per usual protocol peak infusion 30.0 mCi of technetium 99m sestamibi was injected stress images were obtained stress and rest images were reconstructed and compared in the short axis vertical and horizontal long axis. Gated images were also obtained next Perfusion SPECT analysis: Review of the stress images demonstrate normal uptake of tracer noted in all areas of myocardium. The resting images similarly demonstrate normal uptake of tracer noted in all areas of the myocardium. No areas of reversibility are noted suggest ischemia no previous infarct is noted. Gated SPECT analysis: The gated ejection fraction is 72%. Conclusion: Normal pharmacologic myocardial perfusion stress test. Preserved ejection fraction.
== END ==
PROVIDERS: Family Provider Internal Medicine; PCP Internal Medicine; Referring Provider Internal Medicine; Visit Provider Internal Medicine
DX: I25.10 Atherosclerotic heart disease of native coronary artery without angina pectoris (principal)
CPT/HCPCS: 78452; 93017; A9500; A4216; J2785

== ENCOUNTER 2018-10-03 09:12 | Outpatient (RCR) | payer OTHER, SELFPAY ==
[2018-08-03 14:51] VITALS: BMI 37.3
[2018-10-03 09:26] LABS: Prothrombin Time Fingerstick 29.2 SEC (11.9-14.4)
== END 2018-10-31 16:00 | disposition home or self-care (01) ==
LOC: MTLAB 09:12
PROVIDERS: Family Provider Internal Medicine; PCP Internal Medicine; Referring Provider Internal Medicine Cardiovascular Disease; Visit Provider Internal Medicine Cardiovascular Disease
DX: I48.0 Paroxysmal atrial fibrillation (principal); Z79.01 Long term (current) use of anticoagulants
CPT/HCPCS: 36416; 85610

== ENCOUNTER → 2018-10-10 | Outpatient (CLI) | payer OTHER, SELFPAY ==
[2018-08-03 14:51] VITALS: BMI 37.3
--- NOTE | 2018-10-10 14:24 | BI_ITS ---
MAMMOGRAPHY - BILATERAL SCREENING REASON FOR EXAM: Female, 78 years old. Routine annual screening examination. PERTINENT HISTORY: Sister with breast cancer. TECHNIQUE: Digital bilateral breast jerome (3D mammographic acquisition) in the CC and MLO projections. 2-D mediolateral oblique (MLO) and craniocaudad (CC) views of both breasts were obtained. CAD: Full Field Digital Mammography with Computer Added Detection was performed. COMPARISON: Comparison is made with prior examination dated October 05, 2017 and September 29, 2016. FINDINGS: Breast Composition: The breasts are heterogeneously dense, which may obscure small masses. There are no dominant masses or suspicious calcifications. Stable small bilateral axillary lymph nodes. No other significant abnormalities are identified. There has been no significant change since the prior study. BI/SCREENING MAMM (CAD), BILAT IMPRESSION: Stable bilateral screening mammogram. Yearly follow-up mammogram recommended. (A) ASSESSMENT CATEGORY: BIRADS Category 2: Benign. A letter regarding these results will be sent to the patient by the facility within 30 days. Approximately 10% of breast cancers are not detected by mammography. A normal mammogram should not delay biopsy of a clinically suspicious abnormality. [id number] Electronically Signed: Elmer Sexton, at 10:31 EDT , Service support ,
--- NOTE | 2018-10-10 14:25 | BD_ITS ---
STUDY: DUAL ENERGY X-RAY ABSORPTIOMETRY / DXA REASON FOR EXAM: Female, 78 years old. Early menopause. Loss of height. TECHNIQUE: Bone Mineral Density (BMD) measurements of lumbar spine and bilateral hips were obtained. COMPARISON: Comparison is made with prior examination of September 29, 2016. FINDINGS: Lumbar Spine (L1-L4): g/cm2 (1.160) / T-score (0.0) / Z-score (1.8) Findings are suggestive of normal bone density with a low fracture risk. Left Femur Total: g/cm2 (0.947) / T-score (-0.5) / Z-score (1.4) Left Femoral Neck: g/cm2 (0.811) / T-score (-1.6) / Z-score (0.4) Right Femur Total: g/cm2 (0.922) / T-score (-0.7) / Z-score (1.2) Right Femoral Neck: g/cm2 (0.857) / T-score (-1.3) / Z-score (0.8) The T-Scores on the most recent prior examination were: Lumbar Spine (L1-L4): There has been worsening of bone density since the previous examination. Left Femur Total: which represents a worsening of 1.8%. Right Femur Total: which represents a worsening of 0.8%. BD/Dexa Bone Density Study IMPRESSION: The patient is considered osteopenic as outlined below according to World Loyd Organization (WHO) criteria with a moderate fracture risk. There has been worsening of bone density since the previous examination. Reference Information: The T-score is the number of standard deviations above or below the standard which is normal for young adults at their peak bone mineral density. The World Health Organization (WHO) interprets the T-scores as follows: Above -1 Normal bone density Between -1 and -2.5 Osteopenia Equal to / or below -2.5 Osteoporosis As a practical clinical guideline, osteopenia may be graded as follows: Mild -1 through -1.5 Moderate -1.6 through -2.0 Severe -2.1 through -2.4 The Z-score is the number of standard deviations above or below age-matched controls. A Z-score of less than -1.5 would be considered abnormal. References: 1. NIH Osteoporosis and Related Bone Diseases http://www.osteo.org 2. International Society for Clinical Densitometry http://www.iscd.org 3. National Osteoporosis Foundation http://www.nof.org Electronically Signed: Elmer Sexton, at 15:39 EDT , Service support ,
== END | disposition home or self-care (01) ==
LOC: OPBD 14:23
PROVIDERS: Family Provider Internal Medicine; PCP Internal Medicine; Referring Provider Internal Medicine; Visit Provider Internal Medicine
DX: Z12.31 Encounter for screening mammogram for malignant neoplasm of breast (principal); Z78.0 Asymptomatic menopausal state
CPT/HCPCS: 77063; 77067; 77080

== ENCOUNTER 2019-01-24 13:33 | Outpatient (RCR) | payer OTHER, SELFPAY ==
[2018-08-03 14:51] VITALS: BMI 37.3
[2019-01-24 13:45] LABS: Prothrombin Time Fingerstick 22.9 SEC (11.9-14.4)
== END 2019-01-31 16:06 | disposition home or self-care (01) ==
LOC: MTLAB 13:33
PROVIDERS: Family Provider Internal Medicine; PCP Internal Medicine; Referring Provider Internal Medicine Cardiovascular Disease; Visit Provider Internal Medicine Cardiovascular Disease
DX: I48.0 Paroxysmal atrial fibrillation (principal); Z79.01 Long term (current) use of anticoagulants
CPT/HCPCS: 36416; 85610

== ENCOUNTER → 2019-02-09 11:01 | Outpatient (CLI) | payer OTHER, SELFPAY ==
[2018-08-03 14:51] VITALS: BMI 37.3
--- NOTE | 2019-02-09 11:05 | CDU_ITS ---
Reason For Study: Stenosis Rt. Velocities/BP Lt. Velocities/BP Prox CCA 58.3/7.5 cm/sec. Prox CCA 74/12.6 cm/sec. Mid CCA 57.5/9.1 cm/sec. Mid CCA 71.6/9 cm/sec. Dist CCA 64/8 cm/sec. Dist CCA 51.9/9 cm/sec. Prox ICA 42.1/7.1 cm/sec. Prox ICA 59/11.5 cm/sec. Mid ICA 65.2/12.4 cm/sec. Mid ICA 139.4/24.3 cm/sec. Dist ICA 107.2/17.6 cm/sec. Dist ICA 132.1/17 cm/sec. Rt. ICA/CCA = 1.8. Lt. ICA/CCA = 1.9. Prox ECA 71.8 cm/sec. Prox ECA 114.8/20.4 cm/sec. Rt. Vert. 54.4/10.2 cm/sec. Lt. Vert. 91.9/13.3 cm/sec. Right Extracranial There is intimal thickening but no significant atherosclerotic plaque noted in the right common carotid artery. There is heterogeneous, irregular atherosclerotic plaque noted in the right internal carotid artery. There is heterogeneous, irregular atherosclerotic plaque noted in the right external carotid artery. Antegrade flow is noted in the right vertebral artery. Left Extracranial There is intimal thickening but no significant atherosclerotic plaque noted in the left common carotid artery. There is intimal thickening but no significant atherosclerotic plaque noted in the left internal carotid artery. The left internal carotid artery is very tortuous. The tortuous nature of the left internal carotid artery may result in flow velocities overestimating the degree of stenosis. There is intimal thickening but no significant atherosclerotic plaque noted in the left external carotid artery. Antegrade flow is noted in the left vertebral artery. Procedure Carotid Duplex [id number]. Exam performed in department. Interpretation Summary Mild (<50%) stenosis right extracranial internal carotid. Moderate (50-69%) stenosis left extracranial internal carotid. Flow within the vertebral arteries is antegrade bilaterally. Ordering Physician: Hailey Baires Referring Physician: Hailey Baires Performed By: Jemima Ly RVT
== END ==
PROVIDERS: Family Provider Internal Medicine; PCP Internal Medicine; Referring Provider Internal Medicine; Visit Provider Internal Medicine
DX: I65.23 Occlusion and stenosis of bilateral carotid arteries (principal)
CPT/HCPCS: 93880

== ENCOUNTER 2019-07-12 11:57 | Outpatient (RCR) | payer OTHER, SELFPAY ==
[2018-08-03 14:51] VITALS: BMI 37.3
[2019-03-29 08:27] VITALS: BMI 38.0
[2019-07-13 16:01] LABS: Prothrombin Time Fingerstick 25.3 SEC (11.9-14.4)
== END 2019-07-12 18:00 | disposition home or self-care (01) ==
LOC: MTLAB 11:57
PROVIDERS: Family Provider Internal Medicine; PCP Internal Medicine; Referring Provider Internal Medicine Cardiovascular Disease; Visit Provider Internal Medicine Cardiovascular Disease
DX: I48.0 Paroxysmal atrial fibrillation (principal); Z79.01 Long term (current) use of anticoagulants
CPT/HCPCS: 36416; 85610

== ENCOUNTER → 2019-12-06 | Outpatient (CLI) | payer OTHER, SELFPAY ==
[2019-03-29 08:27] VITALS: BMI 38.0
--- NOTE | 2019-12-06 10:39 | BI_ITS ---
MAMMOGRAPHY - BILATERAL SCREENING REASON FOR EXAM: Female, 79 years old. Routine annual screening examination. PERTINENT HISTORY: Sister with breast cancer. TECHNIQUE: Digital bilateral breast arcelia (3D mammographic acquisition) in the CC and MLO projections. 2-D mediolateral oblique (MLO) and craniocaudad (CC) views of both breasts were obtained. CAD: Full Field Digital Mammography with Computer Added Detection was performed. COMPARISON: Comparison is made with prior examination of October 10, 2018 and October 05, 2017. FINDINGS: Breast Composition: The breasts are heterogeneously dense, which may obscure small masses. There are no dominant masses or suspicious calcifications. Stable bilateral small axillary lymph nodes as well as stable bilateral secretory calcifications. No other significant abnormalities are identified. There has been no significant change since the prior study. BI/SCREEN MAMM (CAD) W/ARCELIA BILAT IMPRESSION: Stable bilateral screening mammogram. Yearly follow-up mammogram recommended. (A) ASSESSMENT CATEGORY: BIRADS Category 2: Benign. A letter regarding these results will be sent to the patient by the facility within 30 days. Approximately 10% of breast cancers are not detected by mammography. A normal mammogram should not delay biopsy of a clinically suspicious abnormality. [id number] Electronically Signed: Elmer Sexton, at 11:22 EDT , Service support ,
== END | disposition home or self-care (01) ==
LOC: OPBI 10:38
PROVIDERS: PCP Internal Medicine; Referring Provider Internal Medicine; Visit Provider Internal Medicine
DX: Z12.31 Encounter for screening mammogram for malignant neoplasm of breast (principal)
CPT/HCPCS: 77063; 77067

== ENCOUNTER 2019-12-20 11:19 | Outpatient (RCR) | payer OTHER, SELFPAY ==
[2019-03-29 08:27] VITALS: BMI 38.0
[2019-12-06 11:45] LABS: Prothrombin Time Fingerstick 39.3 SEC (11.9-14.4)
[2019-12-20 11:51] LABS: Prothrombin Time Fingerstick 23.7 SEC (11.9-14.4)
== END 2019-12-20 18:00 | disposition home or self-care (01) ==
LOC: MTLAB 11:19
PROVIDERS: Family Provider Internal Medicine; PCP Internal Medicine; Referring Provider Internal Medicine Cardiovascular Disease; Visit Provider Internal Medicine Cardiovascular Disease
DX: I48.0 Paroxysmal atrial fibrillation (principal); Z79.01 Long term (current) use of anticoagulants
CPT/HCPCS: 36416; 85610

== ENCOUNTER → 2020-02-12 12:45 | Outpatient (CLI) | payer OTHER, SELFPAY ==
[2019-03-29 08:27] VITALS: BMI 38.0
--- NOTE | 2020-02-12 12:46 | CDU_ITS ---
Reason For Study: carotid stenosis Rt. Velocities/BP Lt. Velocities/BP Prox CCA 74.7/13.4 cm/sec. Prox CCA 65.5/11.6 cm/sec. Mid CCA 63.0/10.8 cm/sec. Mid CCA 68.2/14.7 cm/sec. Dist CCA 64.3/9.5 cm/sec. Dist CCA 65.6/12.1 cm/sec. Prox ICA 74.7/13.4 cm/sec. Prox ICA 74.0/13.9 cm/sec. Mid ICA 90.4/21.3 cm/sec. Mid ICA 150.3/30.7 cm/sec. Dist ICA 99.5/20.0 cm/sec. Dist ICA 127.7/24.2 cm/sec. Rt. ICA/CCA = 1.6. Lt. ICA/CCA = 2.2. Prox ECA 70.8/5.6 cm/sec. Prox ECA 147.7/7.2 cm/sec. Rt. Vert. 59.1/8.2 cm/sec. Lt. Vert. 47.3/11.7 cm/sec. Right Extracranial There is intimal thickening but no significant atherosclerotic plaque noted in the right common carotid artery. There is heterogeneous, irregular atherosclerotic plaque noted in the right internal carotid artery. There is heterogeneous, irregular atherosclerotic plaque noted in the right external carotid artery. Antegrade flow is noted in the right vertebral artery. Left Extracranial There is intimal thickening but no significant atherosclerotic plaque noted in the left common carotid artery. There is intimal thickening but no significant atherosclerotic plaque noted in the left internal carotid artery. The left internal carotid artery is very tortuous. The tortuous nature of the left internal carotid artery may result in flow velocities overestimating the degree of stenosis. There is intimal thickening but no significant atherosclerotic plaque noted in the left external carotid artery. Antegrade flow is noted in the left vertebral artery. Procedure Carotid Duplex [id number]. The exam was diagnostic. Exam performed in department. Interpretation Summary Mild (<50%) stenosis right extracranial internal carotid. Moderate (50-69%) stenosis left extracranial internal carotid. Flow within the vertebral arteries is antegrade bilaterally. Ordering Physician: Hailey Baires Performed By: Wade Altamirano RVT
== END ==
PROVIDERS: PCP Internal Medicine; Referring Provider Internal Medicine; Visit Provider Internal Medicine
DX: I65.23 Occlusion and stenosis of bilateral carotid arteries (principal)
CPT/HCPCS: 93880

== ENCOUNTER 2020-02-29 13:07 | Outpatient (RCR) | payer OTHER, SELFPAY ==
[2019-03-29 08:27] VITALS: BMI 38.0
[2020-02-12 13:51] LABS: Prothrombin Time Fingerstick 39.8 SEC (11.9-14.4)
[2020-03-03 13:16] LABS: Prothrombin Time Fingerstick 26.4 SEC (11.9-14.4)
== END 2020-03-03 18:00 | disposition home or self-care (01) ==
LOC: MTLAB 13:07
PROVIDERS: Family Provider Internal Medicine; PCP Internal Medicine; Referring Provider Internal Medicine Cardiovascular Disease; Visit Provider Internal Medicine Cardiovascular Disease
DX: I48.0 Paroxysmal atrial fibrillation (principal); Z79.01 Long term (current) use of anticoagulants
CPT/HCPCS: 36416; 85610

== ENCOUNTER 2020-04-25 12:48 | Outpatient (RCR) | payer OTHER, SELFPAY ==
[2019-03-29 08:27] VITALS: BMI 38.0
[2020-04-01 10:59] VITALS: BMI 35.1
[2020-04-14 07:50] LABS: Prothrombin Time Fingerstick 27.9 SEC (11.9-14.4)
[2020-04-28 16:06] LABS: Prothrombin Time Fingerstick 22.9 SEC (11.9-14.4)
== END 2020-04-25 18:00 | disposition home or self-care (01) ==
LOC: MTLAB 12:48
PROVIDERS: Family Provider Internal Medicine; PCP Internal Medicine; Referring Provider Internal Medicine Cardiovascular Disease; Visit Provider Internal Medicine Cardiovascular Disease
DX: I48.0 Paroxysmal atrial fibrillation (principal); Z79.01 Long term (current) use of anticoagulants
CPT/HCPCS: 36416; 85610

== ENCOUNTER 2020-05-23 14:27 | Outpatient (RCR) | payer OTHER, SELFPAY ==
[2020-04-01 10:59] VITALS: BMI 35.1
[2020-05-16 13:01] LABS: Prothrombin Time Fingerstick 43.7 SEC (11.9-14.4)
[2020-05-16 15:39] LABS: Prothrombin Time (Protime)PT. 36.9 SECONDS (11.7-14.9)
[2020-05-16 15:43] LABS: International Normalized Ratio 3.8
== END 2020-05-23 18:00 | disposition home or self-care (01) ==
LOC: MTLAB 14:27
PROVIDERS: Family Provider Internal Medicine; PCP Internal Medicine; Referring Provider Internal Medicine Cardiovascular Disease; Visit Provider Internal Medicine Cardiovascular Disease
DX: I48.0 Paroxysmal atrial fibrillation (principal); Z79.01 Long term (current) use of anticoagulants
CPT/HCPCS: 36415; 36416; 85610

== ENCOUNTER 2020-07-22 12:48 | Outpatient (RCR) | payer OTHER, SELFPAY ==
[2020-04-01 10:59] VITALS: BMI 35.1
[2020-07-22 12:56] LABS: Prothrombin Time Fingerstick 25.8 SEC (11.9-14.4)
== END 2020-07-22 18:00 | disposition home or self-care (01) ==
LOC: MTLAB 12:48
PROVIDERS: Family Provider Internal Medicine; PCP Internal Medicine; Referring Provider Internal Medicine Cardiovascular Disease; Visit Provider Internal Medicine Cardiovascular Disease
DX: I48.0 Paroxysmal atrial fibrillation (principal); Z79.01 Long term (current) use of anticoagulants
CPT/HCPCS: 36416; 85610

== ENCOUNTER → 2020-09-17 13:05 | Outpatient (CLI) | payer OTHER, SELFPAY ==
[2020-04-01 10:59] VITALS: BMI 35.1
--- NOTE | 2020-09-17 13:07 | ECHOD_ITS ---
Reason For Study: Cardiac Dysrhythmia Procedure This was a 2D Doppler, Color Flow transthoracic echocardiogram. Exam performed in department. Left Ventricle Normal LV size. Left ventricular systolic function is normal. The estimated ejection fraction is 60 %. Stage 1 diastolic dysfunction. No regional wall motion abnormalities noted. Right Ventricle Normal RV size. Normal systolic function. Atria Normal left atrium. Normal right atrium. Mitral Valve Normal mitral valve. Trivial eccentric mitral valve insufficiency. Tricuspid Valve Normal tricuspid valve. Unable to estimate RV systolic pressure due to insufficient tricuspid regurgitant envelope. Aortic Valve Trisinus/trileaflet aortic valve. Mild diffuse aortic valve thickening. Peak aortic valve gradient 31 mmHg. Mean aortic valve gradient 16 mmHg. Mild aortic stenosis. Pulmonic Valve Normal pulmonic valve. Great Vessels Normal aortic root. The pulmonary artery is normal size. Normal inferior vena cava. Pericardium/Pleural No pericardial effusion. MMode/2D Measurements & Calculations LVIDd: 4.0 cm IVSd: 1.3 cm LVOT diam: 2.0 cm LVIDs: 2.9 cm LVPWd: 0.83 cm LVOT area: 3.0 cm2 RVDd: 3.8 cm FS: 28.7 % Ao root diam: 3.3 cm LAV(MOD-bp): 49.0 ml LA A4 area: 17.4 cm2 LA dimension: 4.1 cm LAV(MOD-bp) Indexed: 28.4 ml/m2 LAV(MOD-sp2): 46.3 ml LAV(MOD-sp4): 48.0 ml RA A4 area: 15.8 cm2 Time Measurements MV dec time: 0.32 sec Doppler Measurements & Calculations MV E max ethan: 76.6 cm/sec Lat Peak E' Ethan: 8.6 cm/sec Med Peak E' Ethan: 5.9 cm/sec MV A max ethan: 122.4 cm/sec E/E' lat: 8.9 E/E' med: 12.9 MV E/A: 0.63 MV V2 max: 123.3 cm/sec MV P1/2t max ethan: 84.7 cm/sec Ao V2 max: 280.7 cm/sec MV max P.1 mmHg MV P1/2t: 102.7 msec Ao max P.5 mmHg MV V2 mean: 67.3 cm/sec MV dec slope: 241.7 cm/sec2 Ao V2 mean: 183.7 cm/sec MV mean P.1 mmHg Ao mean P.7 mmHg MV V2 VTI: 32.0 cm MVA(P1/2t): 2.1 cm2 Ao V2 VTI: 61.6 cm MVA(VTI): 2.0 cm2 [place](I,D): 1.1 cm2 [place](V,D): 1.2 cm2 LV V1 max: 108.1 cm/sec SV(LVOT): 64.9 ml PA V2 max: 116.5 cm/sec LV V1 max P.7 mmHg LV V1 mean P.1 mmHg LV V1 mean: 65.7 cm/sec LV V1 VTI: 21.7 cm Interpretation Summary Normal LV size. Left ventricular systolic function is normal. The estimated ejection fraction is 60 %. Stage 1 diastolic dysfunction. Mean aortic valve gradient 16 mmHg. Mild aortic stenosis. Ordering Physician: Hailey Baires Referring Physician: Hailey Baires Performed By: Mayo Trent RCS
== END ==
PROVIDERS: PCP Internal Medicine; Referring Provider Internal Medicine; Visit Provider Internal Medicine
DX: I49.9 Cardiac arrhythmia, unspecified (principal)
CPT/HCPCS: 93225; 93226; 93306

== ENCOUNTER → 2020-10-08 06:14 | Outpatient (CLI) | payer OTHER, SELFPAY ==
[2020-04-01 10:59] VITALS: BMI 35.1
--- NOTE | 2020-10-08 19:07 | STRESSREP ---
Stress Test Report Pharmacologic myocardial perfusion stress test. 79-year-old lady with a history of hypertension, lipidemia, paroxysmal atrial fibrillation. Stress protocol: Resting EKG demonstrates normal sinus rhythm with a rate of 67 bpm normal intervals are noted resting blood pressure is 180/82 mmHg. 0.4 mg of regadenoson was infused per usual protocol followed by rapid intravenous saline flush injection continuous EKG monitoring was performed. The maximum heart rate attained was 83 bpm which was 59% of maximum predicted heart rate the maximum workload was 1 metabolic equivalent. At rest there were no ST or T wave changes noted to suggest abnormal flow reserve at peak infusion nonspecific ST changes were noted which did not meet the criteria for ischemia. No clinical angina was noted. Cardiac perfusion protocol. 10.7 mCi of technetium 99m sestamibi was injected at rest. 0.4 mg of regadenoson was infused per usual protocol. At peak infusion 36.0 mCi of technetium 99m sestamibi was injected stress images were obtained stress and rest images were reconstructed and compared in the short axis vertical long horizontal long axis. Gated images were also obtained Perfusion SPECT analysis: Review of the stress images demonstrate normal uptake of tracer noted in all areas of the myocardium. The resting images similar demonstrate uptake of tracer noted in all areas of the myocardium. There is mild anterior breast wall attenuation noted scans. The rest of the harrell appear to be well perfused. Gated SPECT analysis: The gated ejection fraction is 80%. Conclusion: Normal pharmacologic myocardial perfusion stress test. Preserved ejection fraction.
== END ==
PROVIDERS: PCP Internal Medicine; Referring Provider Internal Medicine Cardiovascular Disease; Visit Provider Internal Medicine Cardiovascular Disease
DX: R07.9 Chest pain, unspecified (principal); I48.0 Paroxysmal atrial fibrillation; I10 Essential (primary) hypertension; E78.5 Hyperlipidemia, unspecified; I65.29 Occlusion and stenosis of unspecified carotid artery; Z79.01 Long term (current) use of anticoagulants
CPT/HCPCS: 78452; 93017; A9500; A4216; J2785

== ENCOUNTER → 2021-01-16 09:49 | Outpatient (CLI) | payer OTHER, SELFPAY ==
[2020-04-01 10:59] VITALS: BMI 35.1
--- NOTE | 2021-01-16 09:53 | CDU_ITS ---
Reason For Study: STENOSIS Rt. Velocities/BP Lt. Velocities/BP Prox CCA 89/13 cm/sec. Prox CCA 86/17 cm/sec. Mid CCA 91/11 cm/sec. Mid CCA 70/13 cm/sec. Dist CCA 71/12 cm/sec. Dist CCA 64/12 cm/sec. Prox ICA 53/9 cm/sec. Prox ICA 65/14 cm/sec. Mid ICA 66/18 cm/sec. Mid ICA 83/19 cm/sec. Dist ICA 86/21 cm/sec. Dist ICA 101/17 cm/sec. Rt. ICA/CCA = 1.0. Lt. ICA/CCA = 1.4. Prox ECA 49/0 cm/sec. Prox ECA 60/8 cm/sec. Rt. Vert. 61/12 cm/sec. Lt. Vert. 47/12 cm/sec. Right Extracranial There is homogeneous, smooth atherosclerotic plaque noted in the right common carotid artery. There is heterogeneous, irregular atherosclerotic plaque noted in the right internal carotid artery. There is heterogeneous, irregular atherosclerotic plaque noted in the right external carotid artery. Antegrade flow is noted in the right vertebral artery. There is heterogeneous, irregular atherosclerotic plaque noted in the right bulb. Left Extracranial There is homogeneous, smooth atherosclerotic plaque noted in the left common carotid artery. There is heterogeneous, irregular atherosclerotic plaque noted in the left internal carotid artery. There is heterogeneous, irregular atherosclerotic plaque noted in the left external carotid artery. Antegrade flow is noted in the left vertebral artery. Procedure Carotid Duplex [id number]. Exam performed in department. VL/Carotid Duplex Ultrasound Interpretation Summary Mild (<50%) stenosis right extracranial internal carotid. Mild (<50%) stenosis left extracranial internal carotid. Flow within the vertebral arteries is antegrade bilaterally. Ordering Physician: Hailey Baires Referring Physician: Hailey Baires Performed By: Jessica Nicholas, RDCS, RVT
== END ==
PROVIDERS: PCP Internal Medicine; Referring Provider Internal Medicine; Visit Provider Internal Medicine
DX: I65.23 Occlusion and stenosis of bilateral carotid arteries (principal)
CPT/HCPCS: 93880

== ENCOUNTER 2021-01-16 10:48 | Outpatient (RCR) | payer OTHER, SELFPAY ==
[2020-04-01 10:59] VITALS: BMI 35.1
[2021-01-16 10:55] LABS: INR Fingerstick 2.1; Prothrombin Time Fingerstick 23.8 SEC (11.9-14.4)
== END 2021-01-16 18:00 | disposition home or self-care (01) ==
LOC: MTLAB 10:48
PROVIDERS: Family Provider Internal Medicine; PCP Internal Medicine; Referring Provider Internal Medicine Cardiovascular Disease; Visit Provider Internal Medicine Cardiovascular Disease
DX: I48.0 Paroxysmal atrial fibrillation (principal); Z79.01 Long term (current) use of anticoagulants
CPT/HCPCS: 36416; 85610

== ENCOUNTER → 2021-02-04 10:58 | Outpatient (CLI) | payer OTHER, SELFPAY ==
[2020-04-01 10:59] VITALS: BMI 35.1
--- NOTE | 2021-02-04 10:59 | BI_ITS ---
MAMMOGRAPHY - BILATERAL SCREENING REASON FOR EXAM: Female, 80 years old. Routine annual screening examination. PERTINENT HISTORY: Screening TECHNIQUE: Digital bilateral breast arcelia (3D mammographic acquisition) in the CC and MLO projections. 2-D mediolateral oblique (MLO) and craniocaudad (CC) views of both breasts were obtained. CAD: Full Field Digital Mammography with Computer Added Detection was performed. COMPARISON: 12/06/2019 FINDINGS: Breast Composition: Scattered There are no dominant masses or suspicious calcifications. No other significant abnormalities are identified. BI/SCRN MAMM (CAD)W/ARCELIA BILAT IMPRESSION: Stable bilateral screening mammogram. Yearly follow-up mammogram recommended. (A) ASSESSMENT CATEGORY: BIRADS Category 1: Negative. A letter regarding these results will be sent to the patient by the facility within 30 days. BR1 Approximately 10% of breast cancers are not detected by mammography. A normal mammogram should not delay biopsy of a clinically suspicious abnormality. [id number] Electronically Signed: Bismark Martínez DO at 13:53 EDT Tel , Service support ,
--- NOTE | 2021-02-04 11:01 | BD_ITS ---
STUDY: DUAL ENERGY X-RAY ABSORPTIOMETRY / DXA REASON FOR EXAM: Female, 80 years old. Z780. The patient is postmenopausal. TECHNIQUE: Bone Mineral Density (BMD) measurements of lumbar spine and bilateral hips were obtained. COMPARISON: Comparison is made with prior examination dated 10/10/2018. FINDINGS: Lumbar Spine (L1-L4): g/cm2 (1.034) / T-score (-0.6) / Z-score (2.2) Findings are suggestive of normal bone density with a low fracture risk. Left Femur Total: g/cm2 (0.878) / T-score (-0.5) / Z-score (1.6) Left Femoral Neck: g/cm2 (0.629) / T-score (-2.0) / Z-score (0.3) Right Femur Total: g/cm2 (0.871) / T-score (-0.6) / Z-score (1.5) Right Femoral Neck: g/cm2 (0.625) / T-score (-2.0) / Z-score (0.3) The T-Scores on the most recent prior examination were: Lumbar Spine (L1-L4): There has been worsening of bone density since the previous examination. Left Femur Total: which represents a worsening of 0.5%. Right Femur Total: which represents an improvement of 1.5%. BD/Dexa Bone Density Study IMPRESSION: The patient is considered osteopenic as outlined below according to World Loyd Organization (WHO) criteria with a moderate fracture risk. There has been worsening of bone density since the previous examination. Reference Information: The T-score is the number of standard deviations above or below the standard which is normal for young adults at their peak bone mineral density. The World Health Organization (WHO) interprets the T-scores as follows: Above -1 Normal bone density Between -1 and -2.5 Osteopenia Equal to / or below -2.5 Osteoporosis As a practical clinical guideline, osteopenia may be graded as follows: Mild -1 through -1.5 Moderate -1.6 through -2.0 Severe -2.1 through -2.4 The Z-score is the number of standard deviations above or below age-matched controls. A Z-score of less than -1.5 would be considered abnormal. References: 1. NIH Osteoporosis and Related Bone Diseases www osteo.org 2. International Society for Clinical Densitometry www iscd.org 3. National Osteoporosis Foundation www nof.org Electronically Signed: Elmer Sexton MD at 14:59 EDT , Service support ,
== END ==
PROVIDERS: PCP Internal Medicine; Referring Provider Internal Medicine; Visit Provider Internal Medicine
DX: Z78.0 Asymptomatic menopausal state (principal); Z12.31 Encounter for screening mammogram for malignant neoplasm of breast
CPT/HCPCS: 77063; 77067; 77080

== ENCOUNTER 2021-03-26 10:39 | Outpatient (RCR) | payer OTHER, SELFPAY ==
[2020-04-01 10:59] VITALS: BMI 35.1
[2021-03-26 10:51] LABS: Prothrombin Time Fingerstick 22.8 SEC (11.9-14.4)
== END 2021-03-26 18:00 | disposition home or self-care (01) ==
LOC: MTLAB 10:39
PROVIDERS: Family Provider Internal Medicine; PCP Internal Medicine; Referring Provider Internal Medicine Cardiovascular Disease; Visit Provider Internal Medicine Cardiovascular Disease
DX: I48.0 Paroxysmal atrial fibrillation (principal); Z79.01 Long term (current) use of anticoagulants
CPT/HCPCS: 36416; 85610

== ENCOUNTER → 2021-06-19 10:56 | Outpatient (CLI) | payer OTHER, SELFPAY ==
--- NOTE | 2021-06-19 11:00 | VDLE_ITS ---
Reason For Study: Pain Procedure LEFT This is a venous duplex using B-mode, color GSV is normal. flow and spectral Doppler. CFV is compressible, spontaneous, phasic, Exam performed in department. competent, and demonstrates normal A preliminary report was called and/or faxed augmentation. to [facility]. FV is compressible, spontaneous, phasic, competent and demonstrates normal augmentation. POP V is compressible, spontaneous, phasic, competent and demonstrates normal augmentation. T/P Trunk is compressible. PTV is compressible. LT PerV is compressible. VL/Venous Duplex US, Unilateral Interpretation Summary Deep veins of the left lower extremity are patent and compressible segmentally. There is no evidence of left lower extremity deep vein thrombosis. Valvular competence appears intac t within the proximal deep venous system on the left . The left great saphenous vein appears patent a nd compressible segmentally. Ordering Physician: Madi Ponce Referring Physician: Hailey Baires D.O. Performed By: Jemima Ly RVT
== END ==
PROVIDERS: PCP Internal Medicine; Referring Provider Physician Assistant; Visit Provider Physician Assistant
DX: M79.662 Pain in left lower leg (principal)
CPT/HCPCS: 93971

== ENCOUNTER 2021-07-16 10:21 | Outpatient (RCR) | payer OTHER, SELFPAY ==
[2021-04-03 02:04] VITALS: BMI 35.1
[2021-07-17 15:46] LABS: INR Fingerstick 1.8; Prothrombin Time Fingerstick 20.5 SEC (11.9-14.4)
== END 2021-08-03 18:00 | disposition home or self-care (01) ==
LOC: MTLAB 10:21
PROVIDERS: Family Provider Internal Medicine; PCP Internal Medicine; Referring Provider Internal Medicine Cardiovascular Disease; Visit Provider Internal Medicine Cardiovascular Disease
DX: I48.0 Paroxysmal atrial fibrillation (principal); Z79.01 Long term (current) use of anticoagulants
CPT/HCPCS: 36416; 85610

== ENCOUNTER 2021-09-28 10:12 | Outpatient (RCR) | payer OTHER, SELFPAY ==
[2021-08-04 01:49] VITALS: BMI 35.1
[2021-09-18 14:51] LABS: INR Fingerstick 1.3; Prothrombin Time Fingerstick 16.3 SEC (11.7-14.9)
[2021-09-28 10:26] LABS: INR Fingerstick 2.1; Prothrombin Time Fingerstick 24.5 SEC (11.7-14.9)
== END 2021-10-01 18:00 | disposition home or self-care (01) ==
LOC: MTLAB 10:12
PROVIDERS: Family Provider Internal Medicine; PCP Internal Medicine; Referring Provider Internal Medicine Cardiovascular Disease; Visit Provider Internal Medicine Cardiovascular Disease
DX: I48.0 Paroxysmal atrial fibrillation (principal); Z79.01 Long term (current) use of anticoagulants
CPT/HCPCS: 36416; 85610

== ENCOUNTER 2021-10-21 10:17 | Outpatient (RCR) | payer OTHER, SELFPAY ==
[2021-10-02 03:09] VITALS: BMI 35.1
[2021-10-21 10:31] LABS: INR Fingerstick 2.7; Prothrombin Time Fingerstick 31.1 SEC (11.7-14.9)
== END 2021-10-21 18:00 | disposition home or self-care (01) ==
LOC: MTLAB 10:17
PROVIDERS: Family Provider Internal Medicine; PCP Internal Medicine; Referring Provider Internal Medicine Cardiovascular Disease; Visit Provider Internal Medicine Cardiovascular Disease
DX: I48.0 Paroxysmal atrial fibrillation (principal); Z79.01 Long term (current) use of anticoagulants
CPT/HCPCS: 36416; 85610

== ENCOUNTER 2021-11-27 14:44 | Outpatient (RCR) | payer OTHER, SELFPAY ==
[2021-11-01 05:30] VITALS: BMI 35.1
[2021-11-27 14:56] LABS: Prothrombin Time Fingerstick 24.1 SEC (11.7-14.9)
== END 2021-11-27 18:00 | disposition home or self-care (01) ==
LOC: MTLAB 14:44
PROVIDERS: Family Provider Internal Medicine; PCP Internal Medicine; Referring Provider Internal Medicine Cardiovascular Disease; Visit Provider Internal Medicine Cardiovascular Disease
DX: I48.0 Paroxysmal atrial fibrillation (principal); Z79.01 Long term (current) use of anticoagulants
CPT/HCPCS: 36416; 85610

== ENCOUNTER 2021-12-18 06:08 | Emergency (ER) | payer OTHER, SELFPAY ==
[2021-12-18 06:09] VITALS: BP 172/56; PULSE 64; RESP 16; TEMP 36.1; O2SAT 97; BMI 33.1
--- NOTE | 2021-12-18 06:19 | CT_ITS ---
STUDY: CT ABDOMEN AND PELVIS WITHOUT CONTRAST REASON FOR EXAM: Female, 81 years old. R flank pain. History of kidney stones. RADIATION DOSAGE (If Supplied By Facility): CTDIvol = ( 12.42 ) mGy, DLP = ( 682.02 ) mGycm TECHNIQUE: Transaxial images were obtained from the dome of the diaphragm to the symphysis pubis without oral contrast, and without intravenous contrast. Sagittal and coronal images were reconstructed. Individualized dose optimization techniques were used for this CT. COMPARISON: Comparison is made with prior study dated 08/28/2016. FINDINGS: Minimal linear scarring at the lung bases. Coronary artery calcification. Normal liver. There are surgical clips in the gallbladder fossa consistent with a prior cholecystectomy. Normal spleen. Normal pancreas. Normal bilateral adrenal glands. Stable right renal parapelvic cyst. There is an 8.9 mm calculus in the lower pole calyx of the left kidney. There is a small hiatal hernia. Normal small intestine. There are multiple colonic diverticula consistent with diverticulosis. The appendix is visualized and appears normal. Normal abdominal aorta. Normal inferior vena cava. Normal retroperitoneum. Normal urinary bladder. There is absence of the uterus consistent with a prior hysterectomy. Normal abdominal wall. There are diffuse degenerative changes of the visualized lumbar spine. Stable grade 1 anterolisthesis of L4 on L5 with disc space narrowing and disc degeneration. CT/Abdomen/Pelvis without Cont IMPRESSION: 8.9 mm calculus in the lower pole calyx of the left kidney. Bilateral parapelvic cysts. Sigmoid diverticulosis. Electronically Signed: Elmer Sexton MD at 8:01 EDT ,
--- NOTE | 2021-12-18 06:20 | ED.VIS.GI ---
HPI HPI - GI History of Present Illness Chief Complaint: Flank Pain Informant: patient Abdominal Pain/Flank Pain Onset: Today (4 hours prior to her arrival) Context: Sudden Onset Timing: Continuous and Waxes and wanes Quality: Aching Location: Right Flank Current Severity: Severe Maximum Severity: Severe Worsened by: Nothing Relieved by: Nothing Nausea/Vomiting/Emesis GI Symptom: Positive for Nausea and Vomiting Onset: Today Quality: Positive for Nonbilious Diarrhea/Melena/Hematochezia GI Symptom: Negative for Diarrhea, Melena or Hematochezia Associated Symptoms Associated Symptoms: Positive for Hematuria (Off and on last several days); Negative for Dysuria, Frequency or Urgency Narrative Narrative: Patient presents sudden onset severe right flank pain that feels like prior kidney stone pain. Nausea and vomiting since the pain started. Has never needed surgery to remove a stone. Several days ago, she noticed intermittent gross hematuria without retention or clots, she is on warfarin for A. fib. She saw her PCP and they did a urine test in the office and as result told her she likely had an infection and started her on Macrobid. [facility] Medical History (Updated 12/18/21 @ 08:[address] Gabriel Salamanca MD) Carotid artery stenosis Essential (primary) hypertension History of cardiac murmur Hyperlipidemia Obesity (BMI 30-39.9) Paroxysmal atrial fibrillation Home Medications aspirin 81 mg chewable tablet 81 mg PO DAILY@0800 08/28/16 [History Last Taken Unknown] calcium carbonate 600 mg calcium (1,500 mg) tablet 600 mg PO BID 08/28/16 [History Last Taken Unknown] cetirizine 10 mg capsule 10 mg PO DAILY 08/28/16 [History Last Taken Unknown] coenzyme Q10 100 mg capsule 200 mg PO DAILY 08/28/16 [History Last Taken Unknown] fish oil-dha-epa 1,200 mg-144 mg-216 mg capsule 1 ea PO DAILY 08/28/16 [History Last Taken Unknown] glucosamine cardenas dipot-chond cardenas sod-C-Mn 500 mg-400 mg-66 mg-3 mg cap 1 ea PO BID 08/28/16 [History Last Taken Unknown] multivitamin 1 ea PO DAILY 08/28/16 [History Last Taken Unknown] rosuvastatin 10 mg tablet 10 mg PO QHS 08/28/16 [History Last Taken Unknown] valsartan 160 mg-hydrochlorothiazide 25 mg tablet 1 ea PO DAILY 08/28/16 [History Last Taken Unknown] warfarin 1 mg tablet 1 mg PO DAILY 06/16/18 [History Last Taken Unknown] warfarin 4 mg tablet 6 mg PO 06/16/18 [History Last Taken Unknown] amlodipine 5 mg tablet 5 mg PO DAILY #90 tabs 03/29/19 [Rx Last Taken Unknown] cyanocobalamin (vitamin B-12) 50 mcg lozenges (Vitamin B-12) 50 mcg PO DAILY 03/29/19 [History Last Taken Unknown] levothyroxine 75 mcg tablet 75 mcg PO MOTUWETHFR 03/31/21 [History Last Taken Unknown] metformin 500 mg tablet,extended release 24 hr 2,000 mg PO DAILY 03/31/21 [History Last Taken Unknown] warfarin 3 mg tablet 3 mg PO DAILY #90 tabs 06/08/21 [Rx Last Taken Unknown] cefdinir 300 mg capsule 300 mg PO BID 10 days #20 caps 12/18/21 [Rx Last Taken Unknown] hydrocodone-acetaminophen 5-325mg 5mg-325mg 1 tab PO Q4H PRN PRN Pain 2 days #12 TABLETS 12/18/21 [Rx Last Taken Unknown] ondansetron 4 mg disintegrating tablet 8 mg PO Q8H PRN PRN Nausea #16 tabs 12/18/21 [Rx Last Taken Unknown] Allergy/AdvReac Type Severity Reaction Status Date / Time ciprofloxacin Allergy dyspnea Verified 12/18/21 06:12 Penicillins Allergy Other Verified 12/18/21 06:12 sulfamethoxazole Allergy dyspnea Verified 12/18/21 06:12 [From Bactrim] tetanus toxoid, adsorbed Allergy Swelling Verified 12/18/21 06:12 trimethoprim [From Bactrim] Allergy dyspnea Verified 12/18/21 06:12 Family History Father Hypertension Myocardial infarction CAD (coronary artery disease) Mother FH: rheumatic fever FH: CHF (congestive heart failure) Brother FH: atrial fibrillation Sister Breast cancer Surgical History H/O tubal ligation History of appendectomy History of cholecystectomy History of hysterectomy History of tonsillectomy Social History Smoking Status: Never smoker alcohol intake: current alcohol intake frequency: a few times a month Alcohol type: wine and hard liquor substance use type: does not use caffeine: Yes Type: carbonated beverages and coffee what type of physical activity do you participate in: walking and other details: tredmill frequency: 5-6 times per week duration: 15-30 minutes/day seatbelt use: always do you feel safe at home: Yes ROS ROS ED Constitutional Constitutional ED: Denies chills or fever(s) Eyes Eyes: Denies change in vision or diplopia ENT ENT ED: Denies rhinorrhea or sore throat Cardiovascular Cardiovascular: Denies chest pain or palpitations Respiratory/Chest Respiratory/Chest: Denies cough or dyspnea Gastrointestinal Gastrointestinal: Reports abdominal pain, nausea and vomiting; Denies diarrhea Genitourinary Genitourinary ED: Denies dysuria or hematuria Musculoskeletal Musculoskeletal: Reports back pain; Denies neck pain Integumentary Denies abscess or rash Neurologic Neurologic: Denies headache(s), paresthesias or weakness Psychiatric Psychiatric: Denies anxiety or suicidal thoughts EXAM Physical Exam Const Vital Signs: 12/18/21 06:09 Temperature 97 F L Temperature Source Oral Pulse Rate 64 Respiratory Rate 16 Blood Pressure 172/56 H Blood Pressure Mean 94 Pulse Ox 97 Oxygen Delivery Method Room Air Positive well nourished and well developed Constitutional Narrative: Uncomfortable no distress General Appearance ED: well developed and NAD HEENT Reports moist mucous membranes normocephalic and atraumatic Eyes PERRL and EOMs intact bilaterally Neck full ROM and supple Resp normal respiratory effort and clear to auscultation bilaterally Cardio regular rate, regular rhythm and no murmurs GI non-distended GI Narrative: Mild tenderness throughout right side no guarding or rebound tenderness otherwise benign abdomen Auscultation: normoactive bowel sounds Palpation: soft Back/Spine General Back: CVA tenderness right and other FROM Extremity normal to inspection General Extremety ED: Negative for edema, pulses abnormal or tenderness General Extremity: Negative for edema or pulses abnormal Neuro oriented x3, CN's II-XII intact bilaterally, no sensory deficits noted and gait normal Sensorium / Orientation: awake and alert Motor Exam: strength 5/5 throughout Skin no rashes or lesions noted and no wounds MDM MDM MDM Narrative Medical decision making narrative: Patient initially given IV morphine and Zofran, this did not help her pain any and she said that she had good luck from Toradol. I gave her a small dose, 10 mg, in addition to empiric Rocephin for her urinalysis that shows significant signs of infection/pyuria. However, there were no bacteria seen, the etiology of this is unknown; she is not partially treated yet because she has not been able to fill the prescription for Macrobid yet. She has a mild leukocytosis. Her CT does show some stranding around her right kidney, there is no obstructive uropathy, she does have a stone in the right kidney that is stable, as well as some cysts and phleboliths that are stable from previous scans. Patient is feeling much better after Toradol, her nausea is resolved after the Zofran. She is feeling better enough to go home. She is not septic, she is well-appearing, I sent a culture of her urine and she tolerated the IV Rocephin without difficulty (her reaction to penicillin as a child was rash and hands swollen) so according to recommendations that also accommodate her allergies to ciprofloxacin and sulfa medications in addition to the fact that she is on warfarin, will prescribe her cefdinir 300 mg twice daily for 10 days. Lab Data Attestation: I reviewed the patient's lab results. Labs: Laboratory Results - last 24 hr 12/18/21 12/18/21 12/18/21 06:57 07:25 07:25 WBC 13.3 H RBC 3.85 L Hgb 11.9 L Hct 36.0 L MCV 93.5 MCH 30.9 MCHC 33.1 RDW Std Deviation 48.2 H RDW Coeff of [place] 14.1 Plt Count 251 MPV 9.6 Immature Gran % (Auto) 0.500 Neut % (Auto) 83.5 H Lymph % (Auto) 10.6 L [place] % (Auto) 4.8 Eos % (Auto) 0.1 Baso % (Auto) 0.5 Absolute Neuts (auto) 11.1 H Absolute Lymphs (auto) 1.41 Nucleated RBC % 0 PT INR Sodium 142 Potassium 4.0 Chloride 109 H Carbon Dioxide 27.0 Anion Gap 6 BUN 20 H Creatinine 0.78 Estim Creat Clear Calc 51.82 Est GFR (MDRD) Af Amer 90 Est GFR (MDRD) Non-Af 75 BUN/Creatinine Ratio 25.5 H Glucose 156 H Calcium 9.3 Urine Color Yellow Urine Clarity Sl. Cloudy Urine pH 5.0 Ur Specific [place] 1.030 Urine Protein 30 H Urine Glucose (UA) Normal Urine Ketones 5 H Urine Occult Blood 50 H Urine Nitrite Negative Urine Bilirubin Negative Urine Urobilinogen Normal Ur Leukocyte Esterase 500 H Urine RBC 0 SEEN Urine WBC 50-100 SEEN Ur Squamous Epith Cells 0 SEEN Urine Bacteria 0 SEEN Urine Mucus 0 SEEN 12/18/21 07:25 WBC RBC Hgb Hct MCV MCH MCHC RDW Std Deviation RDW Coeff of [place] Plt Count MPV Immature Gran % (Auto) Neut % (Auto) Lymph % (Auto) [place] % (Auto) Eos % (Auto) Baso % (Auto) Absolute Neuts (auto) Absolute Lymphs (auto) Nucleated RBC % PT 24.4 H INR 2.2 Sodium Potassium Chloride Carbon Dioxide Anion Gap BUN Creatinine Estim Creat Clear Calc Est GFR (MDRD) Af Amer Est GFR (MDRD) Non-Af BUN/Creatinine Ratio Glucose Calcium Urine Color Urine Clarity Urine pH Ur Specific [place] Urine Protein Urine Glucose (UA) Urine Ketones Urine Occult Blood Urine Nitrite Urine Bilirubin Urine Urobilinogen Ur Leukocyte Esterase Urine RBC Urine WBC Ur Squamous Epith Cells Urine Bacteria Urine Mucus Radiography Diagnostic Testing: Clinical Impression(s) from Imaging Studies Abdomen/Pelvis CT 12/18/21 06:19 IMPRESSION: 8.9 mm calculus in the lower pole calyx of the left kidney. Bilateral parapelvic cysts. Sigmoid diverticulosis. Electronically Signed: Elmer Sexton MD at 8:01 EDT , Discharge Plan Triage Chief Complaint: Flank Pain ED Provider: Gabriel Salamanca Dx/Rx/DC Orders Clinical Impression: Renal colic on right side, Acute pyelonephritis, Warfarin-induced coagulopathy Instructions: ED Pyelonephritis, Female (Adult) Prescriptions: New ondansetron [ondansetron] 4 MG tablet 8 mg PO Q8H PRN PRN (Reason: Nausea) Qty: 16 0RF hydrocodone-acetaminophen [hydrocodone-acetaminophen] 1 TABLET tablet 1 tab PO Q4H PRN PRN (Reason: Pain) 2 Days Qty: 12 0RF cefdinir 300 mg capsule 300 mg PO BID 10 Days Qty: 20 0RF Continued cyanocobalamin (vit B-12) 50 mcg lozenges 50 mcg lozenge 50 mcg PO DAILY amlodipine 5 mg tablet 5 mg PO DAILY Qty: 90 6RF metformin 500 mg tablet extended release 24 hr 2,000 mg PO DAILY Label Comments: TAKE 4 TABLETS BY MOUTH EVERY 24HR WITH EVENING MEAL multivitamin 1 EACH tablet 1 ea PO DAILY calcium carbonate 600 MG tablet 600 mg PO BID aspirin 81 MG tablet,chewable 81 mg PO DAILY@0800 valsartan-hydrochlorothiazide 1 EACH tablet 1 ea PO DAILY coenzyme Q10 100 MG capsule 200 mg PO DAILY rosuvastatin 10 MG tablet 10 mg PO QHS fish oil-dha-epa 1 EACH capsule 1 ea PO DAILY cetirizine 10 MG capsule 10 mg PO DAILY glucosam cardenas acp-jtinfijlw-D-Mn 1 EACH capsule 1 ea PO BID levothyroxine 75 mcg tablet 75 mcg PO MOTUWETH Rx Instructions: 75 mcg 5 days a week and 150 mcg on Sat/Sun warfarin 4 mg tablet 6 mg PO Protocol: Dose Management Condition: Tuesday Dose/Route: 3 mg Instruction: 1 x 3 mg tablet Condition: Tuesday Dose/Route: 3 mg Instruction: 1 x 3 mg tablet Condition: Tuesday Dose/Route: 3 mg Instruction: 1 x 3 mg tablet Condition: Tuesday Dose/Route: 3 mg Instruction: 1 x 3 mg tablet Condition: Dose/Route: 3 mg Instruction: 1 x 3 mg tablet Condition: Tuesday Dose/Route: 6 mg Instruction: 2 x 3 mg tablets Condition: Tuesday Dose/Route: 3 mg Instruction: 1 x 3 mg tablet Protocol Text: Adjustment Start Date: Tuesday11/27/21 INR Value: 2.0 INR Date: 11/27/21 Recheck Date: 12/25/21 Label Comments: pt has tablets on hand for dose increase Rx Instructions: TUESDAY warfarin 1 mg tablet 1 mg PO DAILY Protocol: Dose Management Condition: Tuesday Dose/Route: 3 mg Instruction: 1 x 3 mg tablet Condition: Tuesday Dose/Route: 3 mg Instruction: 1 x 3 mg tablet Condition: Tuesday Dose/Route: 3 mg Instruction: 1 x 3 mg tablet Condition: Tuesday Dose/Route: 3 mg Instruction: 1 x 3 mg tablet Condition: Dose/Route: 3 mg Instruction: 1 x 3 mg tablet Condition: Tuesday Dose/Route: 6 mg Instruction: 2 x 3 mg tablets Condition: Tuesday Dose/Route: 3 mg Instruction: 1 x 3 mg tablet Protocol Text: Adjustment Start Date: Tuesday11/27/21 INR Value: 2.0 INR Date: 11/27/21 Recheck Date: 12/25/21 Label Comments: 1 mg PO has on hand for dose increase or decrease; Rx Instructions: EXCEPT TUESDAY warfarin 3 mg tablet 3 mg PO DAILY Qty: 90 3RF Protocol: Dose Management Condition: Tuesday Dose/Route: 3 mg Instruction: 1 x 3 mg tablet Condition: Tuesday Dose/Route: 3 mg Instruction: 1 x 3 mg tablet Condition: Tuesday Dose/Route: 3 mg Instruction: 1 x 3 mg tablet Condition: Tuesday Dose/Route: 3 mg Instruction: 1 x 3 mg tablet Condition: Dose/Route: 3 mg Instruction: 1 x 3 mg tablet Condition: Tuesday Dose/Route: 6 mg Instruction: 2 x 3 mg tablets Condition: Tuesday Dose/Route: 3 mg Instruction: 1 x 3 mg tablet Protocol Text: Adjustment Start Date: Tuesday11/27/21 INR Value: 2.0 INR Date: 11/27/21 Recheck Date: 12/25/21 Primary Care Provider: Hailey Baires Referrals: Hailey Baires DO [Primary Care Provider] - Amaury Peterson MD [STAFF PHYSICIAN] - Disposition Disposition: Home, Self Care
[2021-12-18 07:02] LABS: Bacteria 0 SEEN /hpf (None Seen); Mucous, Urine 0 SEEN /hpf (<or=2+); Red Blood Cells-Urine 0 SEEN /hpf (0-5); Squamous Epithelial Cells - UA 0 SEEN /hpf (5-10)
[2021-12-18 07:19] LABS: Color, Urine Yellow (Yellow); Glucose, Dipstick Normal (Normal); Ketone-Dipstick 5 mg/dl (Negative); Leukocyte Esterase-Dipstick 500 /ul (Negative); Nitrite-Dipstick Negative (Negative); Occult Blood-Urine 50 /ul (Negative); Protein-Dipstick 30 mg/dl (Negative); Urine Bilirubin Dipstick Negative (Negative); Urine Clarity Sl. Cloudy (Clear); Urine Urobilinogen Normal (Normal)
[2021-12-18] MEDS: Ondansetron 4 MG/2 ML Vial IV (07:26)
[2021-12-18] MEDS: Morphine 4 MG/ML Syringe IV (07:26)
[2021-12-18 07:28] LABS: White Blood Cells 50-100 SEEN /hpf (0-5)
[2021-12-18 07:37] LABS: Absolute Lymphocyte Count 1.41 X10^3/uL (0.83-4.51); Absolute Neutrophil Count 11.1 X10^3/uL (2.0-7.7); Basophil# 0.07 X10^3/uL; Basophil% 0.5 % (0-1); Eosinophil# 0.01 X10^3/uL; Eosinophils% 0.1 % (0-5); Hemoglobin 11.9 g/dL (12.0-15.0); Lymphocyte # 1.41 X10^3/ul (0.83-4.51); Lymphocyte % 10.6 % (19-41); Mean Corp Hgb Conc 33.1 g/dL (32-36); Mean Corpuscular Hgb 30.9 pg (27.0-32.0); Mean Corpuscular Volume 93.5 fL (81-99); Mean Platelet Vol. 9.6 fl (6.2-12.0); Monocyte# 0.64 X10^3/uL; Monocyte% 4.8 % (0-10); NRBC Flagged by Analyzer 0 % (0-5); Neutrophil # 11.14 X10^3/uL (2.7-7.7); Neutrophil % 83.5 % (47-70); Platelet Count 251 K/mm3 (150-450); RBC Distribution Width CV 14.1 % (11.6-14.6); RBC Distribution Width SD 48.2 fl (35.1-43.9); Red Blood Count 3.85 M/mm3 (4.2-5.4); White Blood Count 13.3 K/mm3 (4.4-11.0)
[2021-12-18 07:44] LABS: Anion Gap 6 (5-15); BUN 20 mg/dL (7-18); BUN/Creat Ratio 25.5 RATIO (10-20); Calcium,Total 9.3 mg/dL (8.5-10.1); Chloride 109 mmol/L (98-107); Creatinine, Serum 0.78 mg/dL (0.55-1.02); EST Glomerular Filtration Rate 75 mL/min (>60); Est Glom Filt Rate - Afr Amer 90 mL/min (>60); Estimated Creatinine Clearance 51.82 ml/min; Glucose 156 mg/dL (74-106); Sodium Level 142 mmol/L (136-145)
[2021-12-18] MEDS: Ketorolac 15 MG/ML Vial 10 MG IV (07:58)
[2021-12-18 08:04] LABS: International Normalized Ratio 2.2; Prothrombin Time (Protime)PT. 24.4 SECONDS (11.7-14.9)
[2021-12-18] MEDS: Ceftriaxone 1 GM/50 ML BAG IV (08:04)
[2021-12-18 08:37] VITALS: BP 129/66; RESP 14; O2SAT 98
== END 2021-12-18 08:55 | disposition home or self-care (01) ==
PROVIDERS: Emergency Provider Emergency Medicine; PCP Internal Medicine; Visit Provider Emergency Medicine
DX: N23 Unspecified renal colic (principal); R79.1 Abnormal coagulation profile; N10 Acute pyelonephritis; Z79.01 Long term (current) use of anticoagulants
CPT/HCPCS: 74176; 80048; 81001; 85025; 85610; 87077; 87086; 87088; 87186; 96365; 96375; 99283; J7050; J2405

== ENCOUNTER 2022-01-08 10:11 | Outpatient (RCR) | payer OTHER, SELFPAY ==
[2021-12-01 21:50] VITALS: BMI 35.1
[2022-01-08 10:21] LABS: INR Fingerstick 2.3; Prothrombin Time Fingerstick 26.4 SEC (11.7-14.9)
== END 2022-01-31 03:29 | disposition home or self-care (01) ==
LOC: MTLAB 10:11
PROVIDERS: Family Provider Internal Medicine; PCP Internal Medicine; Referring Provider Internal Medicine Cardiovascular Disease; Visit Provider Internal Medicine Cardiovascular Disease
DX: I48.0 Paroxysmal atrial fibrillation (principal); Z79.01 Long term (current) use of anticoagulants
CPT/HCPCS: 36416; 85610

== ENCOUNTER 2022-01-09 09:57 | Outpatient (CLI) | payer OTHER, SELFPAY ==
[2022-01-09 10:11] VITALS: BP 173/57; PULSE 60; RESP 16; TEMP 36.3; O2SAT 100
[2022-01-09 11:13] VITALS: BP 171/60; PULSE 64; RESP 16; TEMP 36.6; O2SAT 100
== END 2022-01-09 11:20 | disposition home or self-care (01) ==
LOC: MEDOUTP 09:58 → ICU 09:59
PROVIDERS: PCP Internal Medicine; Referring Provider Internal Medicine; Visit Provider Internal Medicine
DX: R82.998 Other abnormal findings in urine (principal)
CPT/HCPCS: 96365; J0696

== ENCOUNTER → 2022-01-10 | Outpatient (CLI) | payer OTHER, SELFPAY ==
[2022-01-10 09:59] VITALS: BP 150/63; PULSE 71; RESP 16; TEMP 36.2; O2SAT 99
[2022-01-10 11:00] VITALS: BP 160/55; PULSE 69; RESP 16; TEMP 36.2; O2SAT 100
== END | disposition home or self-care (01) ==
LOC: MEDOUTP 15:28
PROVIDERS: PCP Internal Medicine; Referring Provider Internal Medicine; Visit Provider Internal Medicine
DX: R82.998 Other abnormal findings in urine (principal)
CPT/HCPCS: 96365; J0696

== ENCOUNTER → 2022-02-15 | Outpatient (CLI) | payer OTHER, SELFPAY ==
--- NOTE | 2022-02-15 12:36 | BI_ITS ---
MAMMOGRAPHY - BILATERAL SCREENING 3-D TOMOSYNTHESIS REASON FOR EXAM: Female, 81 years old. SCREENING PERTINENT HISTORY: No significant family history. TECHNIQUE: 2-D mammograms and 3-D Tomosynthesis of the breast (s) were performed. CAD was performed. COMPARISON: 02/04/2021 FINDINGS: The breast composition is heterogeneously dense that can obscure small breast masses. Scattered benign calcifications are seen. No dense spiculated masses or suspicious microcalcifications are identified. No architectural distortion is identified. There is no skin thickening or retraction. Bilateral benign rodlike calcifications are unchanged. Bilateral benign vascular calcifications can be associated with coronary artery disease. BI/SCRN MAMM (CAD)W/ARCELIA BILAT IMPRESSION: No mammographic signs of malignancy. Routine yearly mammograms recommended. ASSESSMENT CATEGORY: BIRADS Category 2: Benign. A letter regarding these results will be sent to the patient by the facility within 30 days. FOLLOW UP RECOMMENDATION: Yearly follow up mammogram recommended. (A) Approximately 10% of breast cancers are not detected by mammography. A normal mammogram should not delay biopsy of a clinically suspicious abnormality. Electronically Signed: Joseph Bernabe MD at 16:05 EDT ,
== END | disposition home or self-care (01) ==
LOC: OPBI 12:35
PROVIDERS: PCP Internal Medicine; Visit Provider Internal Medicine
DX: Z12.31 Encounter for screening mammogram for malignant neoplasm of breast (principal)
CPT/HCPCS: 77063; 77067

== ENCOUNTER 2022-03-29 10:28 | Outpatient (RCR) | payer OTHER, SELFPAY ==
[2022-01-31 03:29] VITALS: BMI 35.1
[2022-03-11 12:50] LABS: INR Fingerstick 1.7; Prothrombin Time Fingerstick 20.5 SEC (11.7-14.9)
[2022-03-29 11:45] LABS: INR Fingerstick 2.9; Prothrombin Time Fingerstick 33.4 SEC (11.7-14.9)
== END 2022-03-29 18:00 | disposition home or self-care (01) ==
LOC: MTLAB 10:28
PROVIDERS: Family Provider Internal Medicine; PCP Internal Medicine; Referring Provider Internal Medicine Cardiovascular Disease; Visit Provider Internal Medicine Cardiovascular Disease
DX: I48.0 Paroxysmal atrial fibrillation (principal); Z79.01 Long term (current) use of anticoagulants
CPT/HCPCS: 36416; 85610

== ENCOUNTER 2022-04-27 08:58 | Outpatient (RCR) | payer OTHER, SELFPAY ==
[2022-04-03 02:34] VITALS: BMI 35.1
[2022-04-27 09:05] LABS: INR Fingerstick 2.9; Prothrombin Time Fingerstick 32.9 SEC (11.7-14.9)
== END 2022-04-27 18:00 | disposition home or self-care (01) ==
LOC: MTLAB 08:58
PROVIDERS: Family Provider Internal Medicine; PCP Internal Medicine; Referring Provider Internal Medicine Cardiovascular Disease; Visit Provider Internal Medicine Cardiovascular Disease
DX: I48.0 Paroxysmal atrial fibrillation (principal); Z79.01 Long term (current) use of anticoagulants
CPT/HCPCS: 36416; 85610

== ENCOUNTER → 2022-05-11 | Outpatient (CLI) | payer OTHER, SELFPAY ==
--- NOTE | 2022-05-11 13:58 | CDU_ITS ---
Reason For Study: carotid stenosis Rt. Velocities/BP Lt. Velocities/BP Prox CCA 98.1/14.6 cm/sec. Prox CCA 77.3/13.5 cm/sec. Mid CCA 53.1/8.0 cm/sec. Mid CCA 65.2/8.0 cm/sec. Dist CCA 67.4/11.3 cm/sec. Dist CCA 64.1/12.4 cm/sec. Prox ICA 79.5/14.6 cm/sec. Prox ICA 50.9/13.5 cm/sec. Mid ICA 65.2/12.4 cm/sec. Mid ICA 141.2/33.4 cm/sec. Dist ICA 74.0/15.7 cm/sec. Dist ICA 99.8/18.8 cm/sec. Rt. ICA/CCA = 1.5. Lt. ICA/CCA = 2.2. Prox ECA 75.1/6.9 cm/sec. Prox ECA 52.0 cm/sec. Rt. Vert. 59.7/6.9 cm/sec. Lt. Vert. 63.0/9.0 cm/sec. Right Extracranial There is intimal thickening but no significant atherosclerotic plaque noted in the right common carotid artery. There is heterogeneous, irregular atherosclerotic plaque noted in the right internal carotid artery. There is heterogeneous, irregular atherosclerotic plaque noted in the right external carotid artery. Antegrade flow is noted in the right vertebral artery. Left Extracranial There is intimal thickening but no significant atherosclerotic plaque noted in the left common carotid artery. There is heterogeneous, irregular atherosclerotic plaque noted in the left internal carotid artery. The left internal carotid artery is very tortuous. There is heterogeneous, irregular atherosclerotic plaque noted in the left external carotid artery. Antegrade flow is noted in the left vertebral artery. Procedure Carotid Duplex [id number]. This is a Carotid Duplex examination using B-mode, color flow and specral Doppler. The exam was diagnostic. Exam performed in department. VL/Carotid Duplex Ultrasound Interpretation Summary Mild (<50%) stenosis right extracranial internal carotid. Mild (<50%) stenosis left extracranial internal carotid. Mildly elevated velocities in the left mid-internal carotid a rtery are likely due to vessel tortuosity. Flow within the vertebral arteries is antegrade bilateral ly. Ordering Physician: Hailey Baires Referring Physician: Hailey Baires Performed By: Wade Altamirano RVT
== END | disposition home or self-care (01) ==
LOC: CVS 13:56
PROVIDERS: PCP Internal Medicine; Referring Provider Internal Medicine; Visit Provider Internal Medicine
DX: I65.23 Occlusion and stenosis of bilateral carotid arteries (principal)
CPT/HCPCS: 93880

== ENCOUNTER 2022-06-10 14:48 | Outpatient (RCR) | payer OTHER, SELFPAY ==
[2022-05-04 10:29] VITALS: BMI 35.1
[2022-06-10 14:55] LABS: INR Fingerstick 2.1; Prothrombin Time Fingerstick 24.7 SEC (11.7-14.9)
== END 2022-06-10 18:00 | disposition home or self-care (01) ==
LOC: MTLAB 14:48
PROVIDERS: Family Provider Internal Medicine; PCP Internal Medicine; Referring Provider Internal Medicine Cardiovascular Disease; Visit Provider Internal Medicine Cardiovascular Disease
DX: I48.0 Paroxysmal atrial fibrillation (principal); Z79.01 Long term (current) use of anticoagulants
CPT/HCPCS: 36416; 85610

== ENCOUNTER 2022-08-11 14:41 | Outpatient (RCR) | payer OTHER, SELFPAY ==
[2022-07-04 06:29] VITALS: BMI 35.1
[2022-08-11 14:55] LABS: INR Fingerstick 2.4; Prothrombin Time Fingerstick 27.5 SEC (11.7-14.9)
== END 2022-08-11 18:00 | disposition home or self-care (01) ==
LOC: MTLAB 14:41
PROVIDERS: Family Provider Internal Medicine; PCP Internal Medicine; Referring Provider Internal Medicine Cardiovascular Disease; Visit Provider Internal Medicine Cardiovascular Disease
DX: I48.0 Paroxysmal atrial fibrillation (principal); Z79.01 Long term (current) use of anticoagulants
CPT/HCPCS: 36416; 85610

== ENCOUNTER 2022-09-30 14:20 | Outpatient (RCR) | payer OTHER, SELFPAY ==
[2022-08-31 23:19] VITALS: BMI 35.1
[2022-09-30 14:36] LABS: Prothrombin Time Fingerstick 42.2 SEC (11.7-14.9)
[2022-09-30 15:35] LABS: Prothrombin Time (Protime)PT. 39.3 SECONDS (11.7-14.9)
[2022-09-30 15:45] LABS: International Normalized Ratio 4.1
== END 2022-10-01 20:56 | disposition home or self-care (01) ==
LOC: MTLAB 14:20
PROVIDERS: Family Provider Internal Medicine; PCP Internal Medicine; Referring Provider Internal Medicine Cardiovascular Disease; Visit Provider Internal Medicine Cardiovascular Disease
DX: I48.0 Paroxysmal atrial fibrillation (principal); Z79.01 Long term (current) use of anticoagulants
CPT/HCPCS: 36416; 85610

== ENCOUNTER 2022-10-07 11:18 | Emergency (ER) | payer OTHER, SELFPAY ==
[2022-10-07 11:19] VITALS: BP 133/80; PULSE 136; RESP 16; TEMP 36.4; O2SAT 97; BMI 29.4
--- NOTE | 2022-10-07 11:37 | EX.ED.DYSGE1 ---
HPI History of Present Illness Chief Complaint: General Illness Narrative Narrative: 82-year-old female presenting with tachycardia, lightheadedness, generally feeling unwell. She states this is been ongoing since about Tuesday. She thought she had a UTI so she went to the urgent care today. They told her she did have a urinary tract infection but were concerned that her heart rate was around 140 and they sent her to the ER. Patient does have history of tachycardia and atrial fibrillation. Patient is on Coumadin. She does state that she does not have a cough, chest pain, shortness of breath. She does feel like she has a UTI and she states that she has been incontinent of urine. She feels nauseous. She thinks she had a fever yesterday. She states her thermometer did not work but she had chills as well. [facility] Medical History Carotid artery stenosis Diabetes Essential (primary) hypertension Heart disease History of cardiac murmur Hyperlipidemia Kidney disease Lightheaded Obesity (BMI 30-39.9) Paroxysmal atrial fibrillation Tachycardia Thyroid disease Urinary tract infection with hematuria Home Medications aspirin 81 mg chewable tablet 81 mg PO DAILY@0800 08/28/16 [History Last Taken Unknown] calcium carbonate 600 mg calcium (1,500 mg) tablet 600 mg PO BID 08/28/16 [History Last Taken Unknown] cetirizine 10 mg capsule 10 mg PO DAILY 08/28/16 [History Last Taken Unknown] coenzyme Q10 100 mg capsule 200 mg PO DAILY 08/28/16 [History Last Taken Unknown] fish oil-dha-epa 1,200 mg-144 mg-216 mg capsule 1 ea PO DAILY 08/28/16 [History Last Taken Unknown] glucosamine cardenas dipot-chond cardenas sod-C-Mn 500 mg-400 mg-66 mg-3 mg cap 1 ea PO DAILY 08/28/16 [History Last Taken Unknown] multivitamin 1 ea PO DAILY 08/28/16 [History Last Taken Unknown] rosuvastatin 10 mg tablet 10 mg PO QHS 08/28/16 [History Last Taken Unknown] valsartan 160 mg-hydrochlorothiazide 25 mg tablet 1 ea PO DAILY 08/28/16 [History Last Taken Unknown] warfarin 1 mg tablet 1 mg PO DAILY 06/16/18 [History Last Taken Unknown] warfarin 4 mg tablet 6 mg PO 06/16/18 [History Last Taken Unknown] cyanocobalamin (vitamin B-12) 50 mcg lozenges (Vitamin B-12) 50 mcg PO DAILY 03/29/19 [History Last Taken Unknown] levothyroxine 75 mcg tablet 75 mcg PO MOTUWETHFR 03/31/21 [History Last Taken Unknown] metformin 500 mg tablet,extended release 24 hr 2,000 mg PO DAILY 03/31/21 [History Last Taken Unknown] warfarin 3 mg tablet 3 mg PO DAILY #90 tabs 12/24/21 [Rx Last Taken Unknown] metoprolol tartrate 25 mg tablet 12.5 mg PO DAILY PRN breakthrough episodes of atrial fib #30 tabs 08/25/22 [Rx Last Taken Unknown] amlodipine 5 mg tablet 5 mg PO DAILY 09/30/22 [History Last Taken Unknown] flecainide 50 mg tablet 50 mg PO Q12H #60 tabs 09/30/22 [Rx Last Taken Unknown] azithromycin 250 mg tablet 250 mg PO DAILY #4 TABLETS 10/07/22 [Rx Last Taken Unknown] nitrofurantoin monohydrate/macrocrystals 100 mg capsule 100 mg PO Q12H 5 days #10 caps 10/07/22 [Rx Last Taken Unknown] Allergy/AdvReac Type Severity Reaction Status Date / Time ciprofloxacin Allergy dyspnea Verified 10/07/22 11:21 Penicillins Allergy Other Verified 10/07/22 11:21 sulfamethoxazole Allergy dyspnea Verified 10/07/22 11:21 [From Bactrim] tetanus toxoid, adsorbed Allergy Swelling Verified 10/07/22 11:21 trimethoprim [From Bactrim] Allergy dyspnea Verified 10/07/22 11:21 Family History Father Hypertension Myocardial infarction CAD (coronary artery disease) Mother FH: rheumatic fever FH: CHF (congestive heart failure) Brother FH: atrial fibrillation Sister Breast cancer Surgical History H/O tubal ligation History of appendectomy History of cholecystectomy History of hysterectomy History of tonsillectomy Social History Smoking Status: Never smoker alcohol intake: current alcohol intake frequency: a few times a month Alcohol type: wine and hard liquor substance use type: does not use caffeine: Yes Type: carbonated beverages and coffee what type of physical activity do you participate in: walking and other details: tredmill frequency: 5-6 times per week duration: 15-30 minutes/day seatbelt use: always do you feel safe at home: Yes ROS ROS ED Constitutional Constitutional ED: Reports chills and fever(s) Eyes Eyes: Denies change in vision ENT ENT ED: Denies rhinorrhea or sore throat Cardiovascular Cardiovascular: Reports palpitations and racing heartbeat; Denies chest pain Respiratory/Chest Respiratory/Chest: Denies cough or dyspnea Gastrointestinal Gastrointestinal: Reports nausea Genitourinary Genitourinary ED: Reports dysuria and urinary frequency Musculoskeletal Musculoskeletal: Denies arthralgias or back pain Integumentary Denies abscess Neurologic Neurologic: Reports headache(s); Denies paresthesias or weakness Psychiatric Psychiatric: Denies anxiety or depression EXAM Physical Exam Const Vital Signs: 10/07/22 11:19 10/07/22 11:55 10/07/22 11:55 Temperature 97.5 F L Temperature Source Temporal Pulse Rate 136 H 134 H Respiratory Rate 16 18 Respiratory Effort Respiratory Pattern Blood Pressure 133/80 H 155/77 H Blood Pressure Mean 97 103 Pulse Ox 97 95 95 Oxygen Delivery Method Room Air Room Air Room Air 10/07/22 11:56 10/07/22 12:03 10/07/22 13:00 Temperature 100.7 F H 99 F Temperature Source Oral Oral Pulse Rate 135 H 112 H Respiratory Rate 18 18 Respiratory Effort Normal Respiratory Pattern Normal Blood Pressure 109/65 112/65 Blood Pressure Mean 79 80 Pulse Ox 96 95 Oxygen Delivery Method Room Air Room Air 10/07/22 14:00 Temperature 98.5 F Temperature Source Oral Pulse Rate 82 Respiratory Rate 18 Respiratory Effort Respiratory Pattern Blood Pressure 110/54 L Blood Pressure Mean 72 Pulse Ox 95 Oxygen Delivery Method Room Air Positive well nourished General Appearance ED: NAD HEENT Reports moist mucous membranes Eyes PERRL and EOMs intact bilaterally Resp normal respiratory effort and clear to auscultation bilaterally Effort and Inspection: Negative for retractions Auscultation: Negative for rales, rhonchi or wheezes Cardio Rate: tachycardic Rhythm: abnormal rhythm irregularly irregular Back/Spine General Back: Negative for CVA tenderness Extremity normal to inspection General Extremety ED: Negative for edema General Extremity: Negative for edema Neuro oriented x3 and CN's II-XII intact bilaterally Sensorium / Orientation: alert Psych mental status grossly normal Skin no rashes or lesions noted MDM MDM MDM Narrative Medical decision making narrative: I reviewed her her urine dip from the urgent care and this did not look suspicious for UTI. I repeated it and I still do not think she has a urinary tract infection. I also reviewed that her INR was subtherapeutic and she is now tachycardic and lightheaded. She not complaining of chest pain or shortness of breath however. Differential at this point includes differential includes but is not limited to ACS, PE, pneumonia, pneumothorax, muscle strain, costochondritis, A-fib with RVR. EKG on my interpretation shows atrial fibrillation with a rate of 134 bpm. Patient was given Cardizem 20 mg IV as well as a liter bolus of normal saline. At this point the patient was reassessed and she her heart rate was still fast however she was found to have a fever. Patient was given a gram of Tylenol. She is treated with Reglan for her nausea. I then obtained a septic work-up. CBC shows slight leukocytosis at 13.3. Minimal left shift. Hemoglobin macular stable. Platelets normal. PT slightly prolonged at 15.8. INR subtherapeutic at 1.3. D-dimer 0.95. BMP shows sodium of 130. BUN/creatinine ratio is 27.3. Patient was again given a liter of normal saline. Glucose 161 without anion gap. High-sensitivity troponin 8. BNP 75. Chest x-ray on my interpretation shows left-sided lingular infiltrate. Since the D-dimer was elevated I did obtain a CTA because she is subtherapeutic and CTA shows also lingular infiltrate and small right pleural effusion. Patient heart rate now in the 60s. She is normotensive. She looks well. She feels much better her nausea is gone. Lactic acid came back at 1.2. At this point patient looks well enough to go home. I suspect some of the tachycardia with some of the fever that was not detected initially. I did do a rapid flu and COVID and these are negative. Patient was discussed with Dr. Hernandez who is on-call for Hailey Baires. We discussed the case at length. We both feel the patient is stable for discharge home. She will be started on a Z-Jean. She will follow-up to have her INR monitored again. I do not believe the patient is septic. I did mention to her to keep track of her temperature as she is not checking this. I do believe her fever was driving her heart rate faster. She is understanding of this. Patient discharged in stable condition. Impression: 1. Pneumonia 2. Generalized weakness 3. A-fib with RVR resolved 4. Subtherapeutic INR 5. Febrile illness Lab Data Attestation: I reviewed the patient's lab results. Labs: Laboratory Results - last 24 hr 10/07/22 10/07/22 10/07/22 11:55 11:55 11:55 WBC 13.3 H RBC 4.21 Hgb 13.0 Hct 38.8 MCV 92.2 MCH 30.9 MCHC 33.5 RDW Std Deviation 49.6 H RDW Coeff of Blanca 14.8 H Plt Count 161 MPV 11.0 Immature Gran % (Auto) 0.600 Neut % (Auto) 73.3 H Lymph % (Auto) 12.1 L Bollinger % (Auto) 13.6 H Eos % (Auto) 0.0 Baso % (Auto) 0.4 Absolute Neuts (auto) 9.8 H Absolute Lymphs (auto) 1.61 Nucleated RBC % 0 Differential Comment SCANNED Diff Path Review May foll PT INR D-Dimer Quant (PE/DVT) Sodium 130 L Potassium 4.3 Chloride 98 Carbon Dioxide 24.0 Anion Gap 8 BUN 20 H Creatinine 0.73 Estim Creat Clear Calc 32.73 Est GFR (MDRD) Af Amer 98 Est GFR (MDRD) Non-Af 81 BUN/Creatinine Ratio 27.3 H Glucose 161 H Lactic Acid Calcium 9.2 Troponin I High Sens 8 B-Natriuretic Peptide 75.0 Urine Color Urine Clarity Urine pH Ur Specific [place] Urine Protein Urine Glucose (UA) Urine Ketones Urine Occult Blood Urine Nitrite Urine Bilirubin Urine Urobilinogen Ur Leukocyte Esterase Urine RBC Urine WBC Ur Squamous Epith Cells Urine Bacteria Urine Mucus 10/07/22 10/07/22 10/07/22 12:20 12:20 12:20 WBC RBC Hgb Hct MCV MCH MCHC RDW Std Deviation RDW Coeff of Blanca Plt Count MPV Immature Gran % (Auto) Neut % (Auto) Lymph % (Auto) Bollinger % (Auto) Eos % (Auto) Baso % (Auto) Absolute Neuts (auto) Absolute Lymphs (auto) Nucleated RBC % Differential Comment Diff Path Review PT 15.8 H INR 1.3 D-Dimer Quant (PE/DVT) 0.95 H* Sodium Potassium Chloride Carbon Dioxide Anion Gap BUN Creatinine Estim Creat Clear Calc Est GFR (MDRD) Af Amer Est GFR (MDRD) Non-Af BUN/Creatinine Ratio Glucose Lactic Acid 1.2 Calcium Troponin I High Sens B-Natriuretic Peptide Urine Color Urine Clarity Urine pH Ur Specific [place] Urine Protein Urine Glucose (UA) Urine Ketones Urine Occult Blood Urine Nitrite Urine Bilirubin Urine Urobilinogen Ur Leukocyte Esterase Urine RBC Urine WBC Ur Squamous Epith Cells Urine Bacteria Urine Mucus 10/07/22 12:30 WBC RBC Hgb Hct MCV MCH MCHC RDW Std Deviation RDW Coeff of Blanca Plt Count MPV Immature Gran % (Auto) Neut % (Auto) Lymph % (Auto) Bollinger % (Auto) Eos % (Auto) Baso % (Auto) Absolute Neuts (auto) Absolute Lymphs (auto) Nucleated RBC % Differential Comment Diff Path Review PT INR D-Dimer Quant (PE/DVT) Sodium Potassium Chloride Carbon Dioxide Anion Gap BUN Creatinine Estim Creat Clear Calc Est GFR (MDRD) Af Amer Est GFR (MDRD) Non-Af BUN/Creatinine Ratio Glucose Lactic Acid Calcium Troponin I High Sens B-Natriuretic Peptide Urine Color Yellow Urine Clarity Sl. Cloudy Urine pH 7.0 Ur Specific [place] 1.010 Urine Protein 15 H Urine Glucose (UA) Normal Urine Ketones 50 H Urine Occult Blood 10 H Urine Nitrite Negative Urine Bilirubin Negative Urine Urobilinogen Normal Ur Leukocyte Esterase 500 H Urine RBC 0 SEEN Urine WBC 10-25 SEEN Ur Squamous Epith Cells 0-5 SEEN Urine Bacteria RARE Urine Mucus 0 SEEN Radiography Diagnostic Testing: Clinical Impression(s) from Imaging Studies Chest X-Ray 10/07/22 12:30 IMPRESSION: Lingular infiltrate. Electronically Signed: Elmer Sexton MD at 12:44 EDT , Chest CTA 10/07/22 14:12 IMPRESSION: Patchy infiltrate in the peripheral lateral aspect of the lingular segment of the left upper lobe. Follow-up is recommended. Small left pleural effusion. Electronically Signed: Elmer Sexton MD at 15:09 EDT , Discharge Plan Triage Chief Complaint: General Illness ED Provider: Jalen Manuel Dx/Rx/DC Orders Instructions: International Normalized Ratio, ED AFIB, ED Pneumonia (Adult), ED Vomiting (Adult) Prescriptions: New azithromycin 250 mg tablet 250 mg PO DAILY Qty: 4 0RF No Action cyanocobalamin (vit B-12) 50 mcg lozenges 50 mcg lozenge 50 mcg PO DAILY metformin 500 mg tablet extended release 24 hr 2,000 mg PO DAILY Label Comments: TAKE 4 TABLETS BY MOUTH EVERY 24HR WITH EVENING MEAL amlodipine 5 mg tablet 5 mg PO DAILY flecainide 50 mg tablet 50 mg PO Q12H Qty: 60 11RF nitrofurantoin monohyd/m-cryst 100 mg capsule 100 mg PO Q12H 5 Days Qty: 10 0RF Rx Instructions: must administer with a meal/food multivitamin 1 EACH tablet 1 ea PO DAILY calcium carbonate 600 MG tablet 600 mg PO BID aspirin 81 MG tablet,chewable 81 mg PO DAILY@0800 valsartan-hydrochlorothiazide 1 EACH tablet 1 ea PO DAILY coenzyme Q10 100 MG capsule 200 mg PO DAILY rosuvastatin 10 MG tablet 10 mg PO QHS fish oil-dha-epa 1 EACH capsule 1 ea PO DAILY cetirizine 10 MG capsule 10 mg PO DAILY glucosam cardenas gnp-bpiwmlelh-G-Mn 1 EACH capsule 1 ea PO DAILY levothyroxine 75 mcg tablet 75 mcg PO MOTUWETHFR Rx Instructions: 75 mcg 5 days a week and 150 mcg on Sat/Sun warfarin 4 mg tablet 6 mg PO Protocol: Dose Management Condition: Tuesday Dose/Route: 3 mg Instruction: 1 x 3 mg tablet Condition: Tuesday Dose/Route: 3 mg Instruction: 1 x 3 mg tablet Condition: Tuesday Dose/Route: 3 mg Instruction: 1 x 3 mg tablet Condition: Tuesday Dose/Route: 3 mg Instruction: 1 x 3 mg tablet Condition: Dose/Route: 3 mg Instruction: 1 x 3 mg tablet Condition: Tuesday Dose/Route: 3 mg Instruction: 1 x 3 mg tablet Condition: Tuesday Dose/Route: 3 mg Instruction: 1 x 3 mg tablet Protocol Text: Adjustment Start Date: 10/07/22 INR Value: 1.4 INR Date: 10/07/22 Recheck Date: 10/14/22 Label Comments: pt has tablets on hand for dose increase Rx Instructions: TUESDAY warfarin 1 mg tablet 1 mg PO DAILY Protocol: Dose Management Condition: Tuesday Dose/Route: 3 mg Instruction: 1 x 3 mg tablet Condition: Tuesday Dose/Route: 3 mg Instruction: 1 x 3 mg tablet Condition: Tuesday Dose/Route: 3 mg Instruction: 1 x 3 mg tablet Condition: Tuesday Dose/Route: 3 mg Instruction: 1 x 3 mg tablet Condition: Dose/Route: 3 mg Instruction: 1 x 3 mg tablet Condition: Tuesday Dose/Route: 3 mg Instruction: 1 x 3 mg tablet Condition: Tuesday Dose/Route: 3 mg Instruction: 1 x 3 mg tablet Protocol Text: Adjustment Start Date: 10/07/22 INR Value: 1.4 INR Date: 10/07/22 Recheck Date: 10/14/22 Label Comments: 1 mg PO has on hand for dose increase or decrease; Rx Instructions: EXCEPT TUESDAY warfarin 3 mg tablet 3 mg PO DAILY Qty: 90 3RF Protocol: Dose Management Condition: Tuesday Dose/Route: 3 mg Instruction: 1 x 3 mg tablet Condition: Tuesday Dose/Route: 3 mg Instruction: 1 x 3 mg tablet Condition: Tuesday Dose/Route: 3 mg Instruction: 1 x 3 mg tablet Condition: Tuesday Dose/Route: 3 mg Instruction: 1 x 3 mg tablet Condition: Dose/Route: 3 mg Instruction: 1 x 3 mg tablet Condition: Tuesday Dose/Route: 3 mg Instruction: 1 x 3 mg tablet Condition: Tuesday Dose/Route: 3 mg Instruction: 1 x 3 mg tablet Protocol Text: Adjustment Start Date: 10/07/22 INR Value: 1.4 INR Date: 10/07/22 Recheck Date: 10/14/22 Rx Instructions: 3 mg M,T,W,S,S 6 MG TH AND F metoprolol tartrate 25 mg tablet 12.5 mg PO DAILY PRN (Reason: breakthrough episodes of atrial fib) Qty: 30 11RF Primary Care Provider: Hailey Baires Referrals: Hailey Baires, [Primary Care Provider] - Disposition Disposition: Home, Self Care
[2022-10-07 11:55] VITALS: BP 155/77; PULSE 134; RESP 18; O2SAT 95
[2022-10-07] MEDS: 0.9% Normal Saline 1,000 ML 999 ML IV (12:01)
[2022-10-07] MEDS: dilTIAZem 25 MG/5 ML Vial 20 MG IV BOLUS (12:01)
[2022-10-07 12:03] VITALS: BP 109/65; PULSE 135; RESP 18; TEMP 38.2; O2SAT 96
[2022-10-07] MEDS: Acetaminophen 500 MG Tablet 1000 MG PO (12:17)
[2022-10-07] MEDS: Metoclopramide 10 MG/2 ML Vial IV (12:21)
--- NOTE | 2022-10-07 12:30 | RAD_ITS ---
STUDY: X-RAY CHEST REASON FOR EXAM: Female, 82 years old. Chest pain TECHNIQUE: Single AP portable view of the chest. COMPARISON: Comparison is made with prior study dated December 29, 2020. FINDINGS: EKG electrodes are seen. There now is evidence of a lingular infiltrate. There is blunting of the left costophrenic angle. Normal size heart. Normal mediastinum and joann. Normal visualized pulmonary arteries. There is atherosclerotic calcification of the aortic arch with tortuosity. There are diffuse degenerative changes of the visualized thoracic spine. There is a 9 mm rounded bony density in the proximal shaft of the left humerus. There is no demonstrated abnormality of the visualized soft tissue structures of the upper abdomen. RAD/Chest 1 View (Portable) IMPRESSION: Lingular infiltrate. Electronically Signed: Elmer Sexton MD at 12:44 EDT ,
[2022-10-07 12:32] LABS: Absolute Lymphocyte Count 1.61 X10^3/uL (0.83-4.51); Absolute Neutrophil Count 9.8 X10^3/uL (2.0-7.7); Basophil# 0.05 X10^3/uL; Basophil% 0.4 % (0-1); Hematocrit 38.8 % (37-47); Lymphocyte # 1.61 X10^3/ul (0.83-4.51); Lymphocyte % 12.1 % (19-41); Mean Corp Hgb Conc 33.5 g/dL (32-36); Mean Corpuscular Hgb 30.9 pg (27.0-32.0); Mean Corpuscular Volume 92.2 fL (81-99); Monocyte# 1.81 X10^3/uL; Monocyte% 13.6 % (0-10); NRBC Flagged by Analyzer 0 % (0-5); Neutrophil # 9.76 X10^3/uL (2.7-7.7); Neutrophil % 73.3 % (47-70); POSITIVE COUNT YES; POSITIVE DIFFERENTIAL YES; Platelet Count 161 K/mm3 (150-450); RBC Distribution Width CV 14.8 % (11.6-14.6); RBC Distribution Width SD 49.6 fl (35.1-43.9); Red Blood Count 4.21 M/mm3 (4.2-5.4); White Blood Count 13.3 K/mm3 (4.4-11.0)
[2022-10-07 12:38] LABS: Anion Gap 8 (5-15); BUN 20 mg/dL (7-18); BUN/Creat Ratio 27.3 RATIO (10-20); Calcium,Total 9.2 mg/dL (8.5-10.1); Chloride 98 mmol/L (98-107); Creatinine, Serum 0.73 mg/dL (0.55-1.02); EST Glomerular Filtration Rate 81 mL/min (>60); Est Glom Filt Rate - Afr Amer 98 mL/min (>60); Estimated Creatinine Clearance 32.73 ml/min; Glucose 161 mg/dL (74-106); Potassium 4.3 mmol/L (3.5-5.1); Sodium Level 130 mmol/L (136-145); Troponin-I HS 8 pg/mL (3.0-54.0)
[2022-10-07 12:40] LABS: Mucous, Urine 0 SEEN /hpf (<or=2+); Red Blood Cells-Urine 0 SEEN /hpf (0-5)
[2022-10-07 12:44] LABS: Color, Urine Yellow (Yellow); Glucose, Dipstick Normal (Normal); Ketone-Dipstick 50 mg/dl (Negative); Leukocyte Esterase-Dipstick 500 /ul (Negative); Nitrite-Dipstick Negative (Negative); Occult Blood-Urine 10 /ul (Negative); Protein-Dipstick 15 mg/dl (Negative); Urine Bilirubin Dipstick Negative (Negative); Urine Clarity Sl. Cloudy (Clear); Urine Urobilinogen Normal (Normal)
[2022-10-07 12:54] LABS: Bacteria RARE /hpf (None Seen); Squamous Epithelial Cells - UA 0-5 SEEN /hpf (5-10); White Blood Cells 10-25 SEEN /hpf (0-5)
[2022-10-07 12:55] LABS: International Normalized Ratio 1.3; Prothrombin Time (Protime)PT. 15.8 SECONDS (11.7-14.9)
[2022-10-07 13:00] VITALS: BP 112/65; PULSE 112; RESP 18; TEMP 37.2; O2SAT 95
[2022-10-07 13:01] LABS: Lactic Acid 1.2 mmol/L (0.4-1.9)
[2022-10-07 13:01] LABS: Differential Comment SCANNED; Differential Indicated SCAN CRITERIA MET
[2022-10-07 13:28] LABS: D-Dimer Quantitative (DVT/PE) 0.95 FEU/ug/m (0.27-0.49)
[2022-10-07 14:00] VITALS: BP 110/54; PULSE 82; RESP 18; TEMP 36.9; O2SAT 95
--- NOTE | 2022-10-07 14:12 | CT_ITS ---
STUDY: CTA CHEST REASON FOR EXAM: Female, 82 years old. Tachycardia RADIATION DOSAGE (If Supplied By Facility): CTDIvol = ( 11.71 ) mGy, DLP = ( 445.39 ) mGycm TECHNIQUE: The examination was performed with the intravenous administration of IV 100mL Isovue-300. Post-processing of the angiographic images was performed, with multiplanar reformation and 3D reconstruction. Individualized dose optimization techniques were used for this CT. COMPARISON: Comparison is made with prior chest radiograph done earlier in the day. FINDINGS: Normal enhancement of the main pulmonary artery and right and left pulmonary arteries. Normal enhancement of the bilateral peripheral pulmonary arteries. There is no demonstrated pulmonary embolism. Normal thoracic aorta and visualized great vessels. There is no demonstrated aortic dissection. There are calcifications of the coronary arteries. There are visualized mediastinal lymph nodes, which are within normal size limits, and with normal morphology. Normal hilar regions. Normal visualized trachea and bronchi. The lungs are well expanded. Patchy infiltrate in the peripheral lateral aspect of the lingular segment of the left upper lobe. Radiographic follow-up is recommended. Small left pleural effusion. Normal chest wall structures. There are degenerative changes of thoracic spine. Status post cholecystectomy. Small hiatal hernia. CT/CTA Chest W/WO Contrast IMPRESSION: Patchy infiltrate in the peripheral lateral aspect of the lingular segment of the left upper lobe. Follow-up is recommended. Small left pleural effusion. Electronically Signed: Elmer Sexton MD at 15:09 EDT ,
[2022-10-07] MEDS: Azithromycin 250 MG Tablet 500 MG PO (16:10)
[2022-10-07 16:29] VITALS: PULSE 74; RESP 18
[2022-10-08 12:59] LABS: Pathologist Review Reviewed
== END 2022-10-07 16:29 | disposition home or self-care (01) ==
PROVIDERS: Emergency Provider Student in an Organized Health Care Education/Training Program; PCP Internal Medicine; Visit Provider Student in an Organized Health Care Education/Training Program
DX: J18.9 Pneumonia, unspecified organism (principal); I48.91 Unspecified atrial fibrillation; E11.9 Type 2 diabetes mellitus without complications; R53.1 Weakness; E78.5 Hyperlipidemia, unspecified; R42 Dizziness and giddiness; I10 Essential (primary) hypertension; R11.0 Nausea; B96.5 Pseudomonas (aeruginosa) (mallei) (pseudomallei) as the cause of diseases classified elsewhere; R51.9 Headache, unspecified
CPT/HCPCS: 71045; 71275; 80048; 81001; 83605; 83880; 84484; 85025; 85379; 85610; 87040; 87077; 87086; 87088; 87186; 87428; 93005; 96361; 96374; 96375; 99285; J7030; Q9967; A4216

== ENCOUNTER 2022-10-22 13:16 | Outpatient (RCR) | payer OTHER, SELFPAY ==
[2022-10-01 20:56] VITALS: BMI 35.1
[2022-10-07 11:06] LABS: INR Fingerstick 1.4; Prothrombin Time Fingerstick 15.4 SEC (11.7-14.9)
[2022-10-07 12:10] LABS: Mucous, Urine 0 SEEN /hpf (<or=2+)
[2022-10-07 12:12] LABS: Color, Urine Yellow (Yellow); Glucose, Dipstick Normal (Normal); Ketone-Dipstick 50 mg/dl (Negative); Leukocyte Esterase-Dipstick 500 /ul (Negative); Nitrite-Dipstick Negative (Negative); Occult Blood-Urine 50 /ul (Negative); Protein-Dipstick 30 mg/dl (Negative); Specific Gravity, Urine 1.015 (1.002-1.030); Urine Bilirubin Dipstick Negative (Negative); Urine Clarity Sl. Cloudy (Clear); Urine Urobilinogen Normal (Normal)
[2022-10-07 12:27] LABS: Bacteria 1+ /hpf (None Seen); Red Blood Cells-Urine 0-5 SEEN /hpf (0-5); Squamous Epithelial Cells - UA 0-5 SEEN /hpf (5-10); White Blood Cells 10-25 SEEN /hpf (0-5)
[2022-10-15 14:00] LABS: INR Fingerstick 1.3
[2022-10-26 15:50] LABS: INR Fingerstick 1.8
== END 2022-10-31 05:23 | disposition home or self-care (01) ==
LOC: MTLAB 13:16
PROVIDERS: Physician Assistant; Family Provider Internal Medicine; PCP Internal Medicine; Referring Provider Internal Medicine Cardiovascular Disease; Visit Provider Internal Medicine Cardiovascular Disease
DX: I48.0 Paroxysmal atrial fibrillation (principal); Z79.01 Long term (current) use of anticoagulants
CPT/HCPCS: 36416; 81001; 85610

== ENCOUNTER → 2022-10-27 | Outpatient (CLI) | payer OTHER, SELFPAY | END | disposition home or self-care (01) | LOC: PSN 09:01 | PROVIDERS: PCP Internal Medicine; Referring Provider Physician Assistant Medical; Visit Provider Physician Assistant Medical | DX: R00.1 Bradycardia, unspecified (principal); I48.0 Paroxysmal atrial fibrillation | CPT/HCPCS: 93225; 93226 ==

== ENCOUNTER 2022-11-19 13:43 | Outpatient (RCR) | payer OTHER, SELFPAY ==
[2022-10-31 05:24] VITALS: BMI 35.1
--- NOTE | 2022-11-08 11:06 | RAD_ITS ---
STUDY: X-RAY CHEST REASON FOR EXAM: Female, 82 years old. Evaluate for pneumonia. TECHNIQUE: Frontal and lateral views of the chest. COMPARISON: Chest dated October 07, 2022. FINDINGS: Mild hyperinflation. Patchy opacity in the lingular aspect of the left upper lobe slightly decreased. There is no demonstrated pleural abnormality. Stable cardiomegaly. Normal mediastinum and joann. Normal visualized pulmonary arteries. Aortic tortuosity unchanged. Thoracic osteopenia with diffuse moderate thoracic spondylosis. Normal visualized ribs, clavicles, and shoulders. There is no demonstrated abnormality of the visualized soft tissue structures of the upper abdomen. RAD/Chest PA and Lateral IMPRESSION: Cardiomegaly with hyperinflation and patchy opacity in the lingular segment of the left upper lobe which is decreased since the prior study. No superimposed acute finding. Electronically Signed: Madi Dangelo, at 11:49 EDT ,
[2022-11-08 11:25] LABS: INR Fingerstick 4.7; Prothrombin Time Fingerstick 49.2 SEC (11.7-14.9)
[2022-11-08 12:00] LABS: Prothrombin Time (Protime)PT. 44.2 SECONDS (11.7-14.9)
[2022-11-08 12:23] LABS: International Normalized Ratio 4.6
[2022-11-12 14:16] LABS: INR Fingerstick 1.9; Prothrombin Time Fingerstick 21.2 SEC (11.7-14.9)
[2022-11-19 13:50] LABS: INR Fingerstick 1.8; Prothrombin Time Fingerstick 20.1 SEC (11.7-14.9)
== END 2022-11-19 14:43 | disposition home or self-care (01) ==
LOC: MTLAB 13:43
PROVIDERS: Family Provider Internal Medicine; PCP Internal Medicine; Referring Provider Internal Medicine Cardiovascular Disease; Visit Provider Internal Medicine Cardiovascular Disease
DX: I48.0 Paroxysmal atrial fibrillation (principal); Z79.01 Long term (current) use of anticoagulants; J18.9 Pneumonia, unspecified organism
CPT/HCPCS: 36415; 36416; 71046; 85610

== ENCOUNTER 2022-11-21 20:42 | Inpatient (IN) | payer OTHER, MEDICARE, SELFPAY ==
[2022-11-21 20:44] VITALS: BP 158/97; PULSE 61; RESP 16; TEMP 36.8; O2SAT 99; BMI 33.2
--- NOTE | 2022-11-21 21:06 | EKG12_ITS ---
Test Reason : DYSRHYTHMIA Blood Pressure : / mmHG Vent. Rate : 063 BPM Atrial Rate : 063 BPM P-R Int : 170 ms QRS Dur : 088 ms QT Int : 438 ms P-R-T Axes : 064 038 055 degrees QTc Int : 448 ms Normal sinus rhythm Normal ECG Confirmed by SHIREEN BARRIGA, DORY ([id number]), material expeditor JOSE HERNANDEZ ([id number]) on 11/22/2022 10:22:01 AM Referred By: TL Confirmed By:DORY IYER MD
--- NOTE | 2022-11-21 21:06 | CT_ITS ---
STUDY: CT CERVICAL SPINE WITHOUT CONTRAST REASON FOR EXAM: Female, 82 years old. Syncope and fall. Head trauma. RADIATION DOSAGE (If Supplied By Facility): CTDIvol = ( 23.46 ) mGy, DLP = ( 473.11 ) mGycm TECHNIQUE: High resolution transaxial imaging was performed without contrast material. Sagittal and coronal images were reconstructed. Individualized dose optimization techniques were used for this CT. COMPARISON: None FINDINGS: Normal craniovertebral junction. There are degenerative changes of the anterior atlantoaxial articulation. Normal odontoid process. There is straightening of the normal cervical lordosis. Normal vertebral bodies and posterior osseous elements. C2-3: Normal endplates. Normal disc height and morphology. Secondary degenerative change. Normal central canal and intervertebral neuroforamina. C3-4: Mild anterolisthesis of C3 on C4. There is endplate spondylosis with loss of disc height and bulging annulus. Facet joint degenerative change without subluxation.. Normal central canal and intervertebral neuroforamina. C4-5: Endplate spondylosis with loss of disc height bulging annulus. Facet and uncovertebral joint degenerative change. Normal central canal. Narrowing of the right intervertebral neuroforamen. C5-6: Endplate spondylosis. Marked loss of disc height with bulging annulus. Facet and uncovertebral joint degenerative change. Normal central canal. Narrowing of bilateral intervertebral neuroforamina. C6-7: Spondylosis.. Severe loss of disc height. Facet and uncovertebral joint degenerative change. Normal central canal and intervertebral neuroforamina. C7-T1: Normal endplates. Loss of disc height. Facet joint degenerative change.. Normal central canal and intervertebral neuroforamina. Normal visualized soft tissue structures. CT/Spine Cervical without Contras IMPRESSION: Degenerative changes cervical spine without acute fracture or subluxation. Note: MRI is more sensitive than CT in detecting cord injury, ligamentous injury and epidural hematoma. If there is continued clinical concern for any of these entities, MRI should be considered. [employer] was utilized to assist in identifying pertinent positive findings in this case. Electronically Signed: Dakota Moreno DO at 21:55 EDT ,
--- NOTE | 2022-11-21 21:06 | CT_ITS ---
STUDY: CT BRAIN WITHOUT CONTRAST REASON FOR EXAM: Female, 82 years old. Head injury. RADIATION DOSAGE (If Supplied By Facility): CTDIvol = ( 44.99 ) mGy, DLP = ( 829.85 ) mGycm TECHNIQUE: Transaxial CT imaging of the brain was performed without administration of intravenous contrast material. Individualized dose optimization techniques were used for this CT. COMPARISON: No relevant priors. FINDINGS: Soft tissue hematoma in the right frontal region. Normal calvarium. There is mild cerebral atrophy with widening of the extra-axial spaces and ventricular dilatation. There are areas of decreased attenuation within the white matter tracts of the supratentorial brain, consistent with microvascular disease changes. Normal basal ganglia and thalami. Normal brainstem. Normal cerebellum. There is no intracranial hemorrhage. There are no findings of an acute ischemic infarction. Normal visualized paranasal sinuses. CT/Brain/Head without Contrast IMPRESSION: 1. Chronic involutional changes without evidence of acute intracranial or calvarial abnormality. 2. Soft tissue hematoma in the right frontal area. [employer] was utilized to assist in identifying pertinent positive findings in this case. Electronically Signed: Dakota Moreno DO at 21:51 EDT Reading Location ID and State: [address] [place] [address] Tel [phone], Service support ,
--- NOTE | 2022-11-21 21:15 | RAD_ITS ---
STUDY: X-RAY CHEST REASON FOR EXAM: Female, 82 years old. Syncope. TECHNIQUE: Single AP portable view of the chest. COMPARISON: November 08, 2022. FINDINGS: The lungs are clear and expanded. There is no demonstrated pleural abnormality. Stable cardiomegaly. Normal mediastinum and joann. Normal visualized pulmonary arteries. Normal visualized aortic arch and descending thoracic aorta. Normal visualized thoracic spine. Normal visualized ribs, clavicles, and shoulders. There is no demonstrated abnormality of the visualized soft tissue structures of the upper abdomen. RAD/Chest 1 View (Portable) IMPRESSION: No cardiomegaly without acute pulmonary disease. Electronically Signed: Dakota Moreno DO at 21:29 EDT ,
[2022-11-21 21:17] LABS: Absolute Lymphocyte Count 3.57 X10^3/uL (0.83-4.51); Absolute Neutrophil Count 5.6 X10^3/uL (2.0-7.7); Basophil% 0.9 % (0-1); Eosinophil# 0.33 X10^3/uL; Eosinophils% 3.1 % (0-5); Hematocrit 35.8 % (37-47); Hemoglobin 11.5 g/dL (12.0-15.0); Lymphocyte # 3.57 X10^3/ul (0.83-4.51); Lymphocyte % 33.8 % (19-41); Mean Corp Hgb Conc 32.1 g/dL (32-36); Mean Corpuscular Hgb 30.8 pg (27.0-32.0); Mean Platelet Vol. 9.8 fl (6.2-12.0); Monocyte# 0.94 X10^3/uL; Monocyte% 8.9 % (0-10); NRBC Flagged by Analyzer 0 % (0-5); Neutrophil # 5.57 X10^3/uL (2.7-7.7); Neutrophil % 52.9 % (47-70); Platelet Count 268 K/mm3 (150-450); RBC Distribution Width CV 15.4 % (11.6-14.6); RBC Distribution Width SD 54.4 fl (35.1-43.9); Red Blood Count 3.73 M/mm3 (4.2-5.4); White Blood Count 10.6 K/mm3 (4.4-11.0)
[2022-11-21 21:28] LABS: International Normalized Ratio 2.2; Prothrombin Time (Protime)PT. 24.5 SECONDS (11.7-14.9)
[2022-11-21 21:29] LABS: Partial Thromboplast Time 34.4 Seconds (24.1-36.2)
--- NOTE | 2022-11-21 21:30 | EX.ED.DYSGE1 ---
HPI History of Present Illness Chief Complaint: Head Injury Informant: patient and family Narrative Narrative: Patient brought in by EMS from son's home for evaluation of a syncopal episode. This happened twice today. Initially patient was outside when she had a slumped over. This was brief. Only after dinner she was sitting in the chair another episode happened when she fell off the chair hitting her head. No prodromal chest pains or shortness of breath. She is on warfarin for history of paroxysmal A-fib. She said earlier today she felt her heart rate in the 150s she took a 12 and half milligram dose of metoprolol. She is followed by Dr. Robles. She is not chronically on a beta-josy due to heart rate will go down to the 30s. No recent cough. No recent illness. No recent vomiting or diarrhea. Denies any urinary symptoms. She had INR checked 2 days ago was 1.8. She had her warfarin doubled for the past couple nights. Prior similar symptoms: No PFSH [facility] Medical History Carotid artery stenosis Diabetes Essential (primary) hypertension Heart disease History of cardiac murmur Hyperlipidemia Kidney disease Lightheaded Obesity (BMI 30-39.9) Paroxysmal atrial fibrillation Tachycardia Thyroid disease Urinary tract infection with hematuria Home Medications aspirin 81 mg chewable tablet 81 mg PO DAILY@0800 08/28/16 [History Last Taken Unknown] calcium carbonate 600 mg calcium (1,500 mg) tablet 650 mg PO BID 08/28/16 [History Last Taken Unknown] cetirizine 10 mg capsule 10 mg PO DAILY 08/28/16 [History Last Taken Unknown] coenzyme Q10 100 mg capsule 200 mg PO DAILY 08/28/16 [History Last Taken Unknown] fish oil-dha-epa 1,200 mg-144 mg-216 mg capsule 1 ea PO DAILY 08/28/16 [History Last Taken Unknown] glucosamine cardenas dipot-chond cardenas sod-C-Mn 500 mg-400 mg-66 mg-3 mg cap 1 ea PO DAILY 08/28/16 [History Last Taken Unknown] multivitamin 1 ea PO DAILY 08/28/16 [History Last Taken Unknown] rosuvastatin 10 mg tablet 10 mg PO QHS 08/28/16 [History Last Taken Unknown] valsartan 160 mg-hydrochlorothiazide 25 mg tablet 1 ea PO DAILY 08/28/16 [History Last Taken Unknown] warfarin 4 mg tablet 6 mg PO FRSA 06/16/18 [History Last Taken Unknown] cyanocobalamin (vitamin B-12) 50 mcg lozenges (Vitamin B-12) 50 mcg PO DAILY 03/29/19 [History Last Taken Unknown] levothyroxine 75 mcg tablet 75 mcg PO MOTUWETHFR 03/31/21 [History Last Taken Unknown] metformin 500 mg tablet,extended release 24 hr 2,000 mg PO 1700 03/31/21 [History Last Taken Unknown] amlodipine 5 mg tablet 5 mg PO DAILY 09/30/22 [History Last Taken Unknown] flecainide 50 mg tablet 50 mg PO Q12H #180 tabs 10/22/22 [Rx Last Taken Unknown] metoprolol tartrate 25 mg tablet 12.5 mg PO DAILY PRN breakthrough episodes of atrial fib #30 tabs 10/28/22 [Rx Last Taken Unknown] levothyroxine 75 mcg tablet 150 mcg PO SUSA 11/21/22 [History Last Taken Unknown] warfarin 3 mg tablet 3 mg PO SUMOTUWETH 11/21/22 [History Last Taken Unknown] Allergy/AdvReac Type Severity Reaction Status Date / Time ciprofloxacin Allergy dyspnea Verified 11/21/22 20:47 Penicillins Allergy Other Verified 11/21/22 20:47 sulfamethoxazole Allergy dyspnea Verified 11/21/22 20:47 [From Bactrim] tetanus toxoid, adsorbed Allergy Swelling Verified 11/21/22 20:47 trimethoprim [From Bactrim] Allergy dyspnea Verified 11/21/22 20:47 Family History Father Hypertension Myocardial infarction CAD (coronary artery disease) Mother FH: rheumatic fever FH: CHF (congestive heart failure) Brother FH: atrial fibrillation Sister Breast cancer Surgical History H/O tubal ligation History of appendectomy History of cholecystectomy History of hysterectomy History of tonsillectomy Social History Smoking Status: Never smoker alcohol intake: current alcohol intake frequency: a few times a month Alcohol type: wine and hard liquor substance use type: does not use caffeine: Yes Type: carbonated beverages and coffee what type of physical activity do you participate in: walking and other details: tredmill frequency: 5-6 times per week duration: 15-30 minutes/day seatbelt use: always do you feel safe at home: Yes ROS ROS ED Constitutional Constitutional ED: Denies chills, fever(s) or sweats Eyes Eyes: Denies change in vision ENT ENT ED: Denies dysphagia or sore throat Cardiovascular Cardiovascular: Denies chest pain, leg edema, palpitations or racing heartbeat Respiratory/Chest Respiratory/Chest: Denies cough, dyspnea or dyspnea on exertion Gastrointestinal Gastrointestinal: Denies abdominal pain, diarrhea, nausea or vomiting Genitourinary Genitourinary ED: Denies dysuria, hematuria or urinary frequency Musculoskeletal Musculoskeletal: Denies back pain, extremity pain or neck pain Integumentary Reports other Details: Right frontal contusion ; Denies rash or wounds Neurologic Neurologic: Reports headache(s); Denies paresthesias or weakness EXAM Physical Exam Const Vital Signs: 11/21/22 20:44 11/21/22 21:05 11/21/22 22:12 Temperature 98.2 F Temperature Source Temporal Pulse Rate 61 58 L Respiratory Rate 16 14 Respiratory Effort Normal Non-Labored Respiratory Depth Normal Respiratory Pattern Normal Blood Pressure 158/97 H 153/66 H Blood Pressure Mean 117 95 Pulse Ox 99 96 Oxygen Delivery Method Room Air Room Air Positive well nourished and well developed Constitutional Narrative: GCS 15. General Appearance ED: well developed and NAD HEENT Reports moist mucous membranes HEENT Narrative: Contusion right forehead this very superficial abrasion there is no active bleeding no lacerations. No hemotympanums. normocephalic Eyes PERRL, EOMs intact bilaterally and conjunctivae normal General Eye ED: Yes normal appearance of both eyes Neck no lymphadenopathy and supple General: Negative for tenderness Chest Wall inspection of chest normal and palpation of chest normal Chest: Negative for tenderness Resp normal respiratory effort and normal air movement Resp Narrative: Symmetric breath sounds Effort and Inspection: symmetric chest movement; Negative for respiratory distress Cardio regular rate, regular rhythm and no murmurs Peripheral Pulses: pulses 2+ throughout GI normal to inspection, nondistended, normoactive bowel sounds and non-tender Palpation: Negative for guarding or rebound tenderness present Back/Spine no CVA tenderness and no thoracic nor lumbar tenderness Extremity normal to inspection Extremity Narrative: Upper extremity movement without tenderness. Negative logroll bilateral lower extremities. Pulses intact x4. General Extremety ED: Negative for edema or tenderness General Extremity: Negative for edema Neuro oriented x3, CN's II-XII intact bilaterally and no sensory deficits noted Sensorium / Orientation: awake and alert Skin no rashes or lesions noted and no wounds MDM MDM MDM Narrative Medical decision making narrative: Interventions / MDM: Differential diagnosis: Diagnosis considered but do not suspect: N/A My EKG interpretation: Sinus rate of 63, no ST changes T wave inversions in V1 V2. New T wave inversions compared to previous EKG. Imaging independently reviewed and interpreted by myself: CT brain and cervical spine: No intracranial hemorrhage no fracture soft tissue contusion forehead. Also read by radiology. External documents reviewed: N/A Test considered but not ordered:N/A ED course: Patient syncope with head injury on warfarin. Trauma scans were negative. EKG T wave versions in anterior leads are new. INR therapeutic 2.2. Labs are stable initial negative. Re-evaluation: stable, normal sinus rhythm on the monitor, or syncope x2 while sitting is concerning. I spoke with hospice Dr. Fenton for observations admission. Disposition discussed with patient/family/significant other: Patient and family Case discussed with consulting clinician: Hospitalist, Dr. Fenton Lab Data Attestation: I reviewed the patient's lab results. Labs: Laboratory Results - last 24 hr 11/21/22 11/21/22 11/21/22 21:12 21:12 21:12 WBC 10.6 RBC 3.73 L Hgb 11.5 L Hct 35.8 L MCV 96.0 MCH 30.8 MCHC 32.1 RDW Std Deviation 54.4 H RDW Coeff of Blanca 15.4 H Plt Count 268 MPV 9.8 Immature Gran % (Auto) 0.400 Neut % (Auto) 52.9 Lymph % (Auto) 33.8 Baldwin % (Auto) 8.9 Eos % (Auto) 3.1 Baso % (Auto) 0.9 Absolute Neuts (auto) 5.6 Absolute Lymphs (auto) 3.57 Nucleated RBC % 0 PT 24.5 H INR 2.2 APTT 34.4 Sodium 138 Potassium 4.2 Chloride 104 Carbon Dioxide 28.0 Anion Gap 6 BUN 17 Creatinine 0.76 Estim Creat Clear Calc 51.05 Est GFR (MDRD) Af Amer 94 Est GFR (MDRD) Non-Af 78 BUN/Creatinine Ratio 22.5 H Glucose 194 H Calcium 9.3 Magnesium Troponin I High Sens 8 11/21/22 21:12 WBC RBC Hgb Hct MCV MCH MCHC RDW Std Deviation RDW Coeff of Blanca Plt Count MPV Immature Gran % (Auto) Neut % (Auto) Lymph % (Auto) Baldwin % (Auto) Eos % (Auto) Baso % (Auto) Absolute Neuts (auto) Absolute Lymphs (auto) Nucleated RBC % PT INR APTT Sodium Potassium Chloride Carbon Dioxide Anion Gap BUN Creatinine Estim Creat Clear Calc Est GFR (MDRD) Af Amer Est GFR (MDRD) Non-Af BUN/Creatinine Ratio Glucose Calcium Magnesium 1.6 Troponin I High Sens Radiography Diagnostic Testing: Clinical Impression(s) from Imaging Studies Brain CT 11/21/22 21:06 IMPRESSION: 1. Chronic involutional changes without evidence of acute intracranial or calvarial abnormality. 2. Soft tissue hematoma in the right frontal area. [employer] was utilized to assist in identifying pertinent positive findings in this case. Electronically Signed: Dakota Moreno DO at 21:51 EDT Reading Location ID and State: [employer] / [employer] Tel [phone], Service support , Cervical Spine CT 11/21/22 21:06 IMPRESSION: Degenerative changes cervical spine without acute fracture or subluxation. Note: MRI is more sensitive than CT in detecting cord injury, ligamentous injury and epidural hematoma. If there is continued clinical concern for any of these entities, MRI should be considered. [employer] was utilized to assist in identifying pertinent positive findings in this case. Electronically Signed: Dakota Moreno DO at 21:55 EDT Reading Location ID and State: [employer] / [employer] Tel [phone], Service support , Chest X-Ray 11/21/22 21:15 IMPRESSION: No cardiomegaly without acute pulmonary disease. 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
[2022-11-21 21:36] LABS: Anion Gap 6 (5-15); BUN 17 mg/dL (7-18); BUN/Creat Ratio 22.5 RATIO (10-20); Calcium,Total 9.3 mg/dL (8.5-10.1); Chloride 104 mmol/L (98-107); Creatinine, Serum 0.76 mg/dL (0.55-1.02); EST Glomerular Filtration Rate 78 mL/min (>60); Est Glom Filt Rate - Afr Amer 94 mL/min (>60); Estimated Creatinine Clearance 51.05 ml/min; Glucose 194 mg/dL (74-106); Potassium 4.2 mmol/L (3.5-5.1); Sodium Level 138 mmol/L (136-145); Troponin-I HS (w/2H Reflex) 8 pg/mL (3.0-54.0)
[2022-11-21 22:12] VITALS: BP 153/66; PULSE 58; RESP 14; O2SAT 96
--- NOTE | 2022-11-21 22:22 | HP.PCM.HOS_ITS ---
HPI - General General Date of Admission: 11/21/22 Date of Service: 11/21/22 Chief Complaint: Syncopal event x 2. HPI Narrative The patient is an 82 y/o F w/ PMHx: Carotid artery stenosis, HTN, HLD, Diabetes mellitus type II, PAF on Coumadin following with cardiology and per review of notes with intermittent elevated heart rate, palpitations and lightheadedness prompting her to occasionally take an extra dose of metoprolol with her flecai nide stopped the last year prior secondary to low heart rate and at that time had been unable to take metoprolol per most recent cardiology note 09/30/2022, Obesity, Hypothyroidism who presents to the [facility] ED on 11/21/22 with history of syncopal event twice on day of presentation initially when she was outside found slumped over noted to last very briefly and again while she was seated after dinner with a short syncopal event falling off her chair and unfortunately hitting her head with no prodromal symptoms including chest pain, dyspnea, lightheadedness or dyspnea although she does report her heart rate was elevated today up to 150s prompting her to take the extra dose of metoprolol patient and family do note that following the second syncopal event on day of presentation upon. Awakening she did have onset of nausea without any emesis and significant diaphoresis. She did have from hitting her head that second time a small abrasion to the right lateral frontal region but bleeding has since subsided. She denies any current headache, vision changes, further nausea or any onset of emesis. Work-up in the ED included vital signs with T98.2, heart rate 61, BP 158/97, respiratory rate 16, 99% on room air, CBC with WC 10.6, hemoglobin 11.5, MCV 96, platelet 268 without marked shift, coags with INR 2.2, BMP not marked appearing aside glucose 194, troponin 8, EKG with sinus rhythm with no acute evidence of ischemia, chest x-ray with no acute cardiopulmonary findings, CT of the brain with chronic involutional changes without any evidence of acute intracranial or calvarial abnormality, noted soft tissue hematoma right frontal area, CT cervical spine with degenerative changes of the cervical spine without any acute fracture or subluxation.minutes. [facility] Medical History Carotid artery stenosis Diabetes Essential (primary) hypertension Heart disease History of cardiac murmur Hyperlipidemia Kidney disease Lightheaded Obesity (BMI 30-39.9) Paroxysmal atrial fibrillation Tachycardia Thyroid disease Urinary tract infection with hematuria Home Medications aspirin 81 mg chewable tablet 81 mg PO DAILY@0800 08/28/16 [History Last Taken Unknown] calcium carbonate 600 mg calcium (1,500 mg) tablet 650 mg PO BID 08/28/16 [History Last Taken Unknown] cetirizine 10 mg capsule 10 mg PO DAILY 08/28/16 [History Last Taken Unknown] coenzyme Q10 100 mg capsule 200 mg PO DAILY 08/28/16 [History Last Taken Unknown] fish oil-dha-epa 1,200 mg-144 mg-216 mg capsule 1 ea PO DAILY 08/28/16 [History Last Taken Unknown] glucosamine cardenas dipot-chond cardenas sod-C-Mn 500 mg-400 mg-66 mg-3 mg cap 1 ea PO DAILY 08/28/16 [History Last Taken Unknown] multivitamin 1 ea PO DAILY 08/28/16 [History Last Taken Unknown] rosuvastatin 10 mg tablet 10 mg PO QHS 08/28/16 [History Last Taken Unknown] valsartan 160 mg-hydrochlorothiazide 25 mg tablet 1 ea PO DAILY 08/28/16 [History Last Taken Unknown] warfarin 1 mg tablet 1 mg PO DAILY 06/16/18 [History Last Taken Unknown] warfarin 4 mg tablet 6 mg PO 06/16/18 [History Last Taken Unknown] cyanocobalamin (vitamin B-12) 50 mcg lozenges (Vitamin B-12) 50 mcg PO DAILY 03/29/19 [History Last Taken Unknown] levothyroxine 75 mcg tablet 75 mcg PO MOTUWETHFR 03/31/21 [History Last Taken Unknown] metformin 500 mg tablet,extended release 24 hr 2,000 mg PO DAILY 03/31/21 [History Last Taken Unknown] warfarin 3 mg tablet 3 mg PO DAILY #90 tabs 12/24/21 [Rx Last Taken Unknown] amlodipine 5 mg tablet 5 mg PO DAILY 09/30/22 [History Last Taken Unknown] cefuroxime axetil 500 mg tablet 500 mg PO BID #10 tabs 10/11/22 [Rx Last Taken Unknown] flecainide 50 mg tablet 50 mg PO Q12H #180 tabs 10/22/22 [Rx Last Taken Unknown] metoprolol tartrate 25 mg tablet 12.5 mg PO DAILY PRN breakthrough episodes of atrial fib #30 tabs 10/28/22 [Rx Last Taken Unknown] levothyroxine 75 mcg tablet 150 mcg PO SUSA 11/21/22 [History Last Taken Unknown] Allergy/AdvReac Type Severity Reaction Status Date / Time ciprofloxacin Allergy dyspnea Verified 11/21/22 20:47 Penicillins Allergy Other Verified 11/21/22 20:47 sulfamethoxazole Allergy dyspnea Verified 11/21/22 20:47 [From Bactrim] tetanus toxoid, adsorbed Allergy Swelling Verified 11/21/22 20:47 trimethoprim [From Bactrim] Allergy dyspnea Verified 11/21/22 20:47 Family History Father Hypertension Myocardial infarction CAD (coronary artery disease) Mother FH: rheumatic fever FH: CHF (congestive heart failure) Brother FH: atrial fibrillation Sister Breast cancer Surgical History H/O tubal ligation History of appendectomy History of cholecystectomy History of hysterectomy History of tonsillectomy Social History Smoking Status: Never smoker alcohol intake: current alcohol intake frequency: a few times a month Alcohol type: wine and hard liquor substance use type: does not use caffeine: Yes Type: carbonated beverages and coffee what type of physical activity do you participate in: walking and other details: tredmill frequency: 5-6 times per week duration: 15-30 minutes/day seatbelt use: always do you feel safe at home: Yes ROS ROS Narrative Admission Review of Systems: CONSTITUTIONAL: No weight loss, fever, chills, + weakness or fatigue. HEENT: Eyes: No visual loss, blurred vision, double vision or yellow sclerae. Ears, Nose, Throat: No hearing loss, sneezing, congestion, runny nose or sore throat. SKIN: No rash or itching, lesions, wounds except for + recent small abrasion to the head status post fall, occasional staged ecchymoses. CARDIOVASCULAR: + Mild peripheral distal edema, Syncope. No chest pain, chest pressure or chest discomfort, orthopnea, syncopal events. RESPIRATORY: No shortness of breath, cough or sputum, wheezing, hemoptysis. GASTROINTESTINAL: + Transient nausea. No anorexia, vomiting or diarrhea, abdominal pain, melena, BRBPR. GENITOURINARY: No dysuria, frequency, urgency or retention. NEUROLOGICAL: + Syncope. No headache, paralysis, ataxia, numbness or tingling in the extremities, focal weakness, change in bowel or bladder control, seizure. MUSCULOSKELETAL: + muscle, back pain, joint pain or stiffness. HEMATOLOGIC: + anemia, bleeding or bruising. LYMPHATICS: No enlarged nodes. No history of splenectomy. PSYCHIATRIC: No history of depression or anxiety. ENDOCRINOLOGIC: + reports of sweating. No polyuria or polydipsia. ALLERGIES: No history of asthma, hives, eczema or rhinitis. Vital Signs Vital Signs Vital Signs: 11/21/22 20:44 11/21/22 21:05 11/21/22 22:12 Temperature 98.2 F Temperature Source Temporal Pulse Rate 61 58 L Respiratory Rate 16 14 Respiratory Effort Normal Non-Labored Respiratory Depth Normal Respiratory Pattern Normal Blood Pressure 158/97 H 153/66 H Blood Pressure Mean 117 95 Pulse Ox 99 96 Oxygen Delivery Method Room Air Room Air Weight Weight: 164 lb 6 oz Body Mass Index (BMI) 33.2 Physical Exam Narrative Physical Examination: General: Awake, alert, oriented x 3 and cooperative, seated upright in the ED bed, fatigued appearing. Skin: Normal color, normal turgor, no icterus, no cyanosis except for occasional staged ecchymoses to the extremities and recent abrasion to the right lateral frontal scalp with no active bleeding but mild edema to the region. HEENT: AT except for as noted abrasion to the right lateral frontal scalp with no active bleeding with mild edema to the region/NC, EOMI, PERRLA, MMM, no carotid bruits or JVD noted. Lungs: Mildly diminished, greater bases, proper effort, no rales, ronchi or wheezing. Heart: Currently regular rate and rhythm; no gallop, rub audible, no murmur appreciated. Abdomen: Soft, obese, NTTP, ND, distant normal BS, no HSM. Extremities: No cyanosis, no clubbing, mild distal ankle edema, nonpitting bilaterally. Neurological: Patient awake, alert, oriented as noted, cognitive function intact; pupils equally reactive to light and accommodation, cranial nerves II- XII grossly normal, moving all 4 extremities, no focal deficits, strength moderately globally decreased secondary to acute presentation complaints. Psychiatric: Affect appears mildly fatigued otherwise normal, no acute evidence of depressive or anxiety feelings. Results Lab / Micro Data Result Diagrams: 11/21/22 21:12 11/21/22 21:12 Labs: Laboratory Results - last 24 hr 11/21/22 21:12: WBC 10.6, RBC 3.73 L, Hgb 11.5 L, Hct 35.8 L, MCV 96.0, MCH 30.8, MCHC 32.1, RDW Std Deviation 54.4 H, RDW Coeff of Blanca 15.4 H, Plt Count 268, MPV 9.8, Immature Gran % (Auto) 0.400, Neut % (Auto) 52.9, Lymph % (Auto) 33.8, [place]y % (Auto) 8.9, Eos % (Auto) 3.1, Baso % (Auto) 0.9, Absolute Neuts (auto) 5.6, Absolute Lymphs (auto) 3.57, Nucleated RBC % 0 11/21/22 21:12: PT 24.5 H, INR 2.2, APTT 34.4 11/21/22 21:12: Sodium 138, Potassium 4.2, Chloride 104, Carbon Dioxide 28.0, Anion Gap 6, BUN 17, Creatinine 0.76, Estim Creat Clear Calc 51.05, Est GFR (MDRD) Af Amer 94, Est GFR (MDRD) Non-Af 78, BUN/Creatinine Ratio 22.5 H, Glucose 194 H, Calcium 9.3, Troponin I High Sens [address] 11/21/22 21:06 IMPRESSION: 1. Chronic involutional changes without evidence of acute intracranial or calvarial abnormality. 2. Soft tissue hematoma in the right frontal area. [employer] was utilized to assist in identifying pertinent positive findings in this case. Electronically Signed: Dakota Moreno DO at 21:51 EDT Reading Location ID and State: [address] [place] [address] Tel [phone], Service support , Cervical Spine CT 11/21/22 21:06 IMPRESSION: Degenerative changes cervical spine without acute fracture or subluxation. Note: MRI is more sensitive than CT in detecting cord injury, ligamentous injury and epidural hematoma. If there is continued clinical concern for any of these entities, MRI should be considered. [facility] was utilized to assist in identifying pertinent positive findings in this case. Electronically Signed: Dakota Moreno DO at 21:55 EDT Reading Location ID and State: [facility] / [place] Tel [phone], Service support , Chest X-Ray 11/21/22 21:15 IMPRESSION: No cardiomegaly without acute pulmonary disease. Electronically Signed: Dakota Moreno DO at 21:29 EDT , Assessment & Plan Assessment/Plan (1) Syncope: PLAN: Plan The patient is an 82 y/o F w/ PMHx: Carotid artery stenosis, HTN, HLD, Diabetes mellitus type II, PAF on Coumadin following with cardiology and per review of notes with intermittent elevated heart rate, palpitations and lightheadedness prompting her to occasionally take an extra dose of metoprolol with her flecainide stopped the last year prior secondary to low heart rate and at that time had been unable to take metoprolol per most recent cardiology note 09/30/2022, Obesity, Hypothyroidism who presents to the [facility] ED on 11/21/22 with history of syncopal event twice on day of presentation initially when she was outside found slumped over noted to last very briefly and again while she was seated after dinner with a short syncopal event falling off her chair and unfortunately hitting her head with no prodromal symptoms including chest pain, dyspnea, lightheadedness or dyspnea although she does report her heart rate was elevated today up to 150s prompting her to take the extra dose of metoprolol patient and family do note that following the second syncopal event on day of presentation upon. #1. Syncopal Event with suspected recurrent issues with transient tachycardia possibly PAF with RVR: Unclear etiololgy, but patient has had ongoing issues with PAF with RVR and is unable to take chronic medication secondary to associated bradycardia, EKG in ED w/ sinus rhythm with no acute evidence of ischemia, CXR w/ no acute cardiopulmonary findings, initial trop normal. Will admit to PCU, place on a monitored bed to assure no acute myocardial infarction with serial cardiac enzymes and EKGs. Will maintain on fall precautions, obtain admission orthostatic and AM orthostatic VS and increase hydration if appropriate. Will obtain ECHO as last noted 09/17/2020. Mag, TSH/FT4 pending. PT/OT consultation to ascertain stability and discharge needs. Cardiology consulted given issues ongoing per note review from their office and potential earlier evaluation for pacemaker placement. We will hold on adjusting or altering Coumadin at this time until they evaluate. #2. PAF: We will continue patient flecainide with continued Coumadin with INR trending, therapeutic upon presentation with INR 2.2. Patient only takes metoprolol as needed therefore we will continue to monitor and may dose with IV Lopressor as needed or Cardizem cautiously given bradycardic history. Given presentation as noted magnesium, TSH requested. Recent Holter monitor assessment/ with report noting average heart rate 78 sinus rhythm with paroxysmal A-fib with minimum heart rate 32 and maximum heart rate 169 with a total of 22 ventricular ectopic beats with no specific runs, 32 supraventricular ectopic beats with 1 atrial couplet, 1 atrial run totaling only 3 beats with evidence of atrial fibrillation comprising approximately 29.9% of the total QRS complexes. 09/17/2020 echocardiogram with normal LV size, normal LV systolic function, EF 60%, stage I diastolic dysfunction, mean AV gradient 16 mmHg with mild aortic stenosis. #3. Carotid stenosis: We will continue Coumadin with INR trending, statin therapy, hypertensive regimen as noted in diabetic regimen with adjustments as noted. #4. Chronic normocytic anemia: Admission hemoglobin 11.5, has vacillated, last noted 10/07/2022 hemoglobin 13 but prior to this 12/18/2021 hemoglobin 11.9, will await repeat CBC and further evaluate if necessary. #5. Hypertension: Continue home regimen including amlodipine, valsartan/hydrochlorothiazide but clarifying his regimen is actually up-to-date with hold parameters as needed, PRN hydralazine. Patient of note only uses metoprolol as needed and does not take it chronically secondary to issues with bradycardia. #6. Hyperlipidemia: We will continue patient on statin therapy. #7. Diabetes mellitus type II: Hold oral home regimen, ADA diet, accu checks w/ ISS. #8. Hypothyroidism: We will continue patient home levothyroxine regimen, TSH/fr ee T4 requested given presentation. #9. Obesity: Weight loss and lifestyle changes encouraged. #10. DVT Prophylaxis: Continue coumadin with INR trending. #11. CODE status: Patient ALANNAH is her daughter Marychuy Currie and living will is currently in place. Discussed CODE status at length including difference between FULL code, DNR-CCA and DNR-CC status. Following discussions about the differences in these status, requested Full Code status. Advanced Care Planning Face to Face Time: 16 minutes. Admission Evaluation Time spent evaluating chart, patient history, patient evaluation, care planning and discussion with specialists: 60 minutes. Charges/Coding Visit Charges Inpatient E&M: 09151 Init Hosp L2 Procedures Hospitalists Procedures: 48843 Advncd Care Plan 30 Min
[2022-11-21 22:29] VITALS: BP 156/65; PULSE 68; RESP 15; TEMP 36.1; O2SAT 94
[2022-11-21 22:58] LABS: Magnesium 1.6 mg/dL (1.6-2.6)
[2022-11-21 23:14] LABS: Reflex Troponin-HS? (from REC) Y
--- NOTE | 2022-11-21 23:28 | ECHOCS_ITS ---
Reason For Study: SYNCOPE Procedure This was a 2D Doppler, Color Flow transthoracic echocardiogram. The study was technically difficult. Contrast injection was performed. Exam performed portable in patient room. Left Ventricle Normal LV size. Left ventricular systolic function is normal. The estimated ejection fraction is 55 %. Stage 1 diastolic dysfunction. No regional wall motion abnormalities noted. Right Ventricle Normal RV size. Normal systolic function. Atria Normal left atrium. Normal right atrium. Mitral Valve Normal mitral valve. Tricuspid Valve Normal tricuspid valve. Aortic Valve Trisinus/trileaflet aortic valve. Mild focal aortic valve calcification. Mild aortic stenosis. Mean aortic valve gradient 17 mmHg. Pulmonic Valve Normal pulmonic valve. Great Vessels Normal aortic root. The pulmonary artery is normal size. Normal inferior vena cava. Pericardium/Pleural No pericardial effusion. Medication Diluted definity 1ml given slow IV push to enhance endocardial definition. MMode/2D Measurements & Calculations LVIDd: 4.6 cm IVSd: 1.4 cm LVOT diam: 2.0 cm LVIDs: 3.1 cm LVPWd: 1.1 cm FS: 33.7 % LVOT area: 3.0 cm2 Ao root diam: 3.3 cm LAV(MOD-sp4): 53.8 ml LVAd ap4: 34.4 cm2 LVLd ap4: 8.0 cm EDV(MOD-sp4): 122.9 ml EDV(sp4-el): 125.3 ml LVAs ap4: 19.7 cm2 LVLs ap4: 6.7 cm ESV(MOD-sp4): 50.8 ml ESV(sp4-el): 49.1 ml EF(MOD-sp4): 58.6 % EF(sp4-el): 60.8 % SV(MOD-sp4): 72.1 ml SV(sp4-el): 76.2 ml LA A4 area: 19.3 cm2 RA A4 area: 13.5 cm2 Time Measurements MV dec time: 0.24 sec Doppler Measurements & Calculations MV E max ethan: 99.6 cm/sec Lat Peak E' Ethan: 8.6 cm/sec Med Peak E' Ethan: 9.8 cm/sec MV A max ethan: 123.2 cm/sec E/E' lat: 11.6 E/E' med: 10.1 MV E/A: 0.81 MV V2 max: 124.2 cm/sec MV dec slope: 415.5 cm/sec2 Ao V2 max: 266.7 cm/sec MV max P.2 mmHg Ao max P.4 mmHg MV V2 mean: 61.3 cm/sec Ao V2 mean: 194.6 cm/sec MV mean P.9 mmHg Ao mean P.8 mmHg MV V2 VTI: 46.3 cm Ao V2 VTI: 74.8 cm MVA(VTI): 1.7 cm2 AV (velocity ratio): 0.36 [place](I,D): 1.1 cm2 [place](V,D): 1.1 cm2 LV V1 max: 95.3 cm/sec MR max ethan: 509.6 cm/sec SV(LVOT): 80.8 ml LV V1 max P.6 mmHg MR max P.9 mmHg LV V1 mean P.4 mmHg LV V1 mean: 73.5 cm/sec LV V1 VTI: 26.6 cm ECHO/Echo Complete W/ Contrast Interpretation Summary Normal LV size. Left ventricular systolic function is normal. The estimated ejection fraction is 55 %. Stage 1 diastolic dysfunction. Mild aortic stenosis. Mean aortic valve gradient 17 mmHg. Contrast injection was performed. Ordering Physician: Denise Fenton Referring Physician: ETTA LOPEZ Performed By: Clarita Thomas RCS
[2022-11-21 23:30] VITALS: BMI 32.3
[2022-11-21 23:34] VITALS: BP 171/55; PULSE 65; RESP 16; TEMP 36.8; O2SAT 99
[2022-11-21 23:44] LABS: Troponin-I HS 10 pg/mL (3.0-54.0)
[2022-11-21 23:47] VITALS: BP 159/57; BP 162/50; BP 162/60; PULSE 58; PULSE 59; PULSE 62
[2022-11-21] MEDS: 0.9% Normal Saline 1,000 ML 100 ML IV (23:54)
[2022-11-21] MEDS: Flecainide 100 MG Tablet 50 MG PO (23:55)
[2022-11-22] MEDS: Acetaminophen 325 MG Tablet 650 MG PO ×2 (01:23→21:28)
[2022-11-22 03:59] LABS: Absolute Lymphocyte Count 3.07 X10^3/uL (0.83-4.51); Basophil# 0.08 X10^3/uL; Basophil% 0.7 % (0-1); Eosinophils% 2.6 % (0-5); Hematocrit 32.5 % (37-47); Hemoglobin 11.1 g/dL (12.0-15.0); Lymphocyte # 3.07 X10^3/ul (0.83-4.51); Lymphocyte % 26.6 % (19-41); Mean Corp Hgb Conc 34.2 g/dL (32-36); Mean Corpuscular Hgb 32.2 pg (27.0-32.0); Mean Corpuscular Volume 94.2 fL (81-99); Mean Platelet Vol. 9.3 fl (6.2-12.0); Monocyte# 1.04 X10^3/uL; NRBC Flagged by Analyzer 0 % (0-5); Neutrophil # 7.03 X10^3/uL (2.7-7.7); Neutrophil % 60.8 % (47-70); Platelet Count 238 K/mm3 (150-450); RBC Distribution Width CV 15.6 % (11.6-14.6); RBC Distribution Width SD 53.6 fl (35.1-43.9); Red Blood Count 3.45 M/mm3 (4.2-5.4); White Blood Count 11.6 K/mm3 (4.4-11.0)
[2022-11-22 04:09] LABS: International Normalized Ratio 2.3; Prothrombin Time (Protime)PT. 25.8 SECONDS (11.7-14.9)
[2022-11-22 04:19] LABS: Troponin-I HS 9 pg/mL (3.0-54.0)
[2022-11-22 04:28] LABS: ALB/GLOB Ratio 0.9 RATIO (0.9-2.4); AST(SGOT) 21 U/L (15-37); Alanine Aminotransfer ALT/SGPT 20 U/L (13-56); Albumin, Serum 3.1 g/dL (3.2-5.0); Alkaline Phosphatase 35 U/L (45-117); Anion Gap 7 (5-15); BUN 16 mg/dL (7-18); BUN/Creat Ratio 31.6 RATIO (10-20); Calcium,Total 8.4 mg/dL (8.5-10.1); Chloride 110 mmol/L (98-107); Cholesterol 118 mg/dL (200); Creatinine, Serum 0.51 mg/dL (0.55-1.02); EST Glomerular Filtration Rate 124 mL/min (>60); Est Glom Filt Rate - Afr Amer 150 mL/min (>60); Estimated Creatinine Clearance 49.69 ml/min; Globulin 3.3 g/dL (2.2-4.2); Glucose 126 mg/dL (74-106); High Density Lipoprotein 63 mg/dL; Potassium 3.7 mmol/L (3.5-5.1); Protein, Total 6.4 g/dL (6.4-8.2); Sodium Level 142 mmol/L (136-145); T4 Free Direct 1.37 ng/dL (0.76-1.46); Thyroid Stim Hormone (TSH) 1.46 uIU/mL (0.358-3.74); Triglycerides 56 mg/dL; Very Low Density Lipoprotein 11 mg/dL (5-40)
[2022-11-22 05:41] VITALS: BP 142/55; PULSE 57; RESP 16; TEMP 36.4; O2SAT 97
[2022-11-22 05:42] VITALS: BMI 32.4
[2022-11-22] MEDS: Levothyroxine 75 MCG Tablet PO (06:47)
[2022-11-22 07:11] LABS: Bedside Glucose 136 mg/dL (74-106)
--- NOTE | 2022-11-22 07:53 | PCM.PN.HOSP ---
Reason for Visit Reason for Visit: Diagnoses Syncope and collapse (11/21/22) Subjective Subjective No events overnight. Feels well. Objective Data Objective Data Vital Signs: Vital Signs Temp Pulse Resp BP Pulse Ox O2 Del Method 36.4 C L 57 L 16 142/55 H 97 Room Air 11/22/22 05:41 11/22/22 05:41 11/22/22 05:41 11/22/22 05:41 11/22/22 05:41 11/22/22 05:41 Oxygen Delivery Method Room Air Weight: 72.9 kg Body Mass Index (BMI) 32.4 Intake & Output: Intake and Output for Last 24 Hours 11/20/22 11/21/22 11/22/22 23:59 23:59 23:59 Intake Total 220 / 220 Balance 220 / Lab / Micro Data Result Diagrams: 11/22/22 03:50 11/22/22 03:50 Labs: Laboratory Results - last 24 hr 11/21/22 21:12: WBC 10.6, RBC 3.73 L, Hgb 11.5 L, Hct 35.8 L, MCV 96.0, MCH 30.8, MCHC 32.1, RDW Std Deviation 54.4 H, RDW Coeff of Blanca 15.4 H, Plt Count 268, MPV 9.8, Immature Gran % (Auto) 0.400, Neut % (Auto) 52.9, Lymph % (Auto) 33.8, Kendall % (Auto) 8.9, Eos % (Auto) 3.1, Baso % (Auto) 0.9, Absolute Neuts (auto) 5.6, Absolute Lymphs (auto) 3.57, Nucleated RBC % 0 11/21/22 21:12: PT 24.5 H, INR 2.2, APTT 34.4 11/21/22 21:12: Sodium 138, Potassium 4.2, Chloride 104, Carbon Dioxide 28.0, Anion Gap 6, BUN 17, Creatinine 0.76, Estim Creat Clear Calc 51.05, Est GFR (MDRD) Af Amer 94, Est GFR (MDRD) Non-Af 78, BUN/Creatinine Ratio 22.5 H, Glucose 194 H, Calcium 9.3, Troponin I High Sens 8 11/21/22 21:12: Magnesium 1.6 11/21/22 23:20: Troponin I High Sens 10 11/22/22 03:50: WBC 11.6 H, RBC 3.45 L, Hgb 11.1 L, Hct 32.5 L, MCV 94.2, MCH 32.2 H, MCHC 34.2 D, RDW Std Deviation 53.6 H, RDW Coeff of Blanca 15.6 H, Plt Count 238, MPV 9.3, Immature Gran % (Auto) 0.300, Neut % (Auto) 60.8, Lymph % (Auto) 26.6, Kendall % (Auto) 9.0, Eos % (Auto) 2.6, Baso % (Auto) 0.7, Absolute Neuts (auto) 7.0, Absolute Lymphs (auto) 3.07, Nucleated RBC % 0 11/22/22 03:50: Sodium 142, Potassium 3.7, Chloride 110 H, Carbon Dioxide 25.0, Anion Gap 7, BUN 16, Creatinine 0.51 L, Estim Creat Clear Calc 49.69, Est GFR (MDRD) Af Amer 150, Est GFR (MDRD) Non-Af 124, BUN/Creatinine Ratio 31.6 H, Glucose 126 H, Calcium 8.4 L, Total Bilirubin 0.60, AST 21, ALT 20, Alkaline Phosphatase 35 L, Total Protein 6.4, Albumin 3.1 L, Globulin 3.3, Albumin/Globulin Ratio 0.9, Triglycerides 56, Cholesterol 118, LDL Cholesterol 44, VLDL Cholesterol 11, HDL Cholesterol 63, TSH 1.46, Free T4 1.37 11/22/22 03:50: PT 25.8 H, INR 2.3 11/22/22 03:50: Troponin I High Sens 9 11/22/22 06:44: POC Glucose 136 H Radiography Diagnostic Testing: Radiology Impression Brain CT 11/21/22 21:06 IMPRESSION: 1. Chronic involutional changes without evidence of acute intracranial or calvarial abnormality. 2. Soft tissue hematoma in the right frontal area. AIDOC was utilized to assist in identifying pertinent positive findings in this case. Electronically Signed: Dakota Moreno DO at 21:51 EDT Reading Location ID and State: [address] [place] [address] Tel [phone], Service support , Cervical Spine CT 11/21/22 21:06 IMPRESSION: Degenerative changes cervical spine without acute fracture or subluxation. Note: MRI is more sensitive than CT in detecting cord injury, ligamentous injury and epidural hematoma. If there is continued clinical concern for any of these entities, MRI should be considered. AIDOC was utilized to assist in identifying pertinent positive findings in this case. Electronically Signed: Dakota Moreno, DO at 21:55 EDT Reading Location ID and State: [facility] / [place] Tel [phone], Service support , Chest X-Ray 11/21/22 21:15 IMPRESSION: No cardiomegaly without acute pulmonary disease. Electronically Signed: Dakota Moreno, at 21:29 EDT Reading Location ID and State: [facility] / [place] Tel [phone], Service support , Physical Exam Const alert and no apparent distress HEENT head/scalp atraumatic Resp normal respiratory effort, no retractions, no use of accessory muscles and clear to auscultation bilaterally Cardio regular rate, regular rhythm, S1 normal heart sound and S2 normal heart sound GI normal to inspection, nondistended, normoactive bowel sounds, soft to palpation, non-tender and non-distended Extremity normal to inspection Assessment & Plan Assessment/Plan (1) Syncope: PLAN: Two events at son's home. Found slumped over then another falling out of chair hitting her head. orthostatic and AM orthostatic VS and increase hydration if appropriate. Checkn ECHO TSH and FT4 WNL PT/OT Cardiology consulted given issues ongoing per note review from their office and potential earlier evaluation for pacemaker placement. PLAN: Plan Chronic conditions: PAF: We will continue patient flecainide with continued Coumadin with INR trending, therapeutic upon presentation with INR 2.2. Patient only takes metoprolol as needed therefore we will continue to monitor and may dose with IV Lopressor as needed or Cardizem cautiously given bradycardic history. Recent Holter monitor assessment/ with report noting average heart rate 78 sinus rhythm with paroxysmal A-fib with minimum heart rate 32 and maximum heart rate 169 with a total of 22 ventricular ectopic beats with no specific runs, 32 supraventricular ectopic beats with 1 atrial couplet, 1 atrial run totaling only 3 beats with evidence of atrial fibrillation comprising approximately 29.9% of the total QRS complexes. 09/17/2020 echocardiogram with normal LV size, normal LV systolic function, EF 60%, stage I diastolic dysfunction, mean AV gradient 16 mmHg with mild aortic stenosis. Carotid stenosis: We will continue Coumadin with INR trending, statin therapy, hypertensive regimen as noted in diabetic regimen with adjustments as noted. Chronic normocytic anemia: Admission hemoglobin 11.5, has vacillated, last noted 10/07/2022 hemoglobin 13 but prior to this 12/18/2021 hemoglobin 11.9, will await repeat CBC and further evaluate if necessary. Hypertension: Continue home regimen including amlodipine, valsartan/hydrochlorothiazide but clarifying his regimen is actually up-to-date with hold parameters as needed, PRN hydralazine. Patient of note only uses metoprolol as needed and does not take it chronically secondary to issues with bradycardia. Hyperlipidemia: We will continue patient on statin therapy. Diabetes mellitus type II: Hold oral home regimen, ADA diet, accu checks w/ ISS. Hypothyroidism: We will continue patient home levothyroxine regimen, TSH/free T4 requested given presentation. Obesity: Weight loss and lifestyle changes encouraged. DVT Prophylaxis: not indicated as she is already anticoagulated CODE status: Full code Charges/Coding Visit Charges Inpatient E&M: 27358 Subs Hosp L2
--- NOTE | 2022-11-22 09:12 | PCM.CONS.C ---
Assessment & Plan Assessment/Plan (1) Paroxysmal atrial fibrillation: PLAN: She presents with paroxysmal atrial fibrillation. This has been going on and she has been on a beta-josy as well as flecainide for this in the past. It does not appear that she is tolerating this well and has had some bradycardia and tachycardia episodes. At this juncture I would recommend that we consider permanent pacemaker implantation for her so her other medications can be resumed. (2) Essential (primary) hypertension: PLAN: Her blood pressure appears to be under good control at this time I would not recommend that we make any major changes. (3) Carotid artery stenosis: PLAN: She does have a history of moderate carotid disease. I do not think that is contributing to the current presentation. (4) Syncope: PLAN: She did have an episode of syncope which I suspect is bradycardia arrhythmia related. She has been on flecainide in the past as well as metoprolol. I would recommend that we hold this in place to a permanent pacemaker implantation when her INR is better. Thank you for allowing me to participate in the care of your patient. Please don't hesitate to call if any issues arise. HPI Consult Data Date of Consult: 11/22/22 HPI Narrative HPI Narrative: YOEL SCOTT, is a 82 F who presents with episode of syncope that happened while she was having dinner. She does have a history of hypertension, mild carotid stenosis, hyperlipidemia, diabetes mellitus, paroxysmal atrial fibrillation on Coumadin who has been having intermittently elevated heart rates as well as bradycardia arrhythmia on beta-josy. She has had her medications adjusted recently through the office. She says that she was sitting down to have dinner and then she had a syncopal event where she fell off the chair unfortunately hit her head. She was seen in the emergency room was evaluated laboratory tests were noted to be normal her EKG demonstrated sinus rhythm with no acute changes and CT scan of the head did not demonstrate any significant abnormalities. She has had a previous history of paroxysmal atrial fibrillation on anticoagulation. [facility] Medical History Carotid artery stenosis Diabetes Essential (primary) hypertension Heart disease History of cardiac murmur Hyperlipidemia Kidney disease Lightheaded Obesity (BMI 30-39.9) Paroxysmal atrial fibrillation Tachycardia Thyroid disease Urinary tract infection with hematuria Home Medications aspirin 81 mg chewable tablet 81 mg PO DAILY@0800 02/25/17 [History Last Taken Unknown] calcium carbonate 600 mg calcium (1,500 mg) tablet 650 mg PO BID 08/28/16 [History Last Taken Unknown] cetirizine 10 mg capsule 10 mg PO DAILY 08/28/16 [History Last Taken Unknown] coenzyme Q10 100 mg capsule 200 mg PO DAILY 08/28/16 [History Last Taken Unknown] fish oil-dha-epa 1,200 mg-144 mg-216 mg capsule 1 ea PO DAILY 08/28/16 [History Last Taken Unknown] glucosamine cardenas dipot-chond cardenas sod-C-Mn 500 mg-400 mg-66 mg-3 mg cap 1 ea PO DAILY 08/28/16 [History Last Taken Unknown] multivitamin 1 ea PO DAILY 08/28/16 [History Last Taken Unknown] rosuvastatin 10 mg tablet 10 mg PO QHS 08/28/16 [History Last Taken Unknown] valsartan 160 mg-hydrochlorothiazide 25 mg tablet 1 ea PO DAILY 08/28/16 [History Last Taken Unknown] warfarin 4 mg tablet 6 mg PO FRSA 06/16/18 [History Last Taken Unknown] cyanocobalamin (vitamin B-12) 50 mcg lozenges (Vitamin B-12) 50 mcg PO DAILY 03/29/19 [History Last Taken Unknown] levothyroxine 75 mcg tablet 75 mcg PO MOTUWETHFR 03/31/21 [History Last Taken Unknown] metformin 500 mg tablet,extended release 24 hr 2,000 mg PO 1700 03/31/21 [History Last Taken Unknown] amlodipine 5 mg tablet 5 mg PO DAILY 09/30/22 [History Last Taken Unknown] flecainide 50 mg tablet 50 mg PO Q12H #180 tabs 10/22/22 [Rx Last Taken Unknown] metoprolol tartrate 25 mg tablet 12.5 mg PO DAILY PRN breakthrough episodes of atrial fib #30 tabs 10/28/22 [Rx Last Taken Unknown] levothyroxine 75 mcg tablet 150 mcg PO SUSA 11/21/22 [History Last Taken Unknown] warfarin 3 mg tablet 3 mg PO SUMOTUWETH 11/21/22 [History Last Taken Unknown] Allergy/AdvReac Type Severity Reaction Status Date / Time ciprofloxacin Allergy dyspnea Verified 11/21/22 20:47 Penicillins Allergy Other Verified 11/21/22 20:47 sulfamethoxazole Allergy dyspnea Verified 11/21/22 20:47 [From Bactrim] tetanus toxoid, adsorbed Allergy Swelling Verified 11/21/22 20:47 trimethoprim [From Bactrim] Allergy dyspnea Verified 11/21/22 20:47 Family History Father Hypertension Myocardial infarction CAD (coronary artery disease) Mother FH: rheumatic fever FH: CHF (congestive heart failure) Brother FH: atrial fibrillation Sister Breast cancer Surgical History H/O tubal ligation History of appendectomy History of cholecystectomy History of hysterectomy History of tonsillectomy Social History Smoking Status: Never smoker alcohol intake: current alcohol intake frequency: a few times a month Alcohol type: wine and hard liquor substance use type: does not use caffeine: Yes Type: carbonated beverages and coffee what type of physical activity do you participate in: walking and other details: tredmill frequency: 5-6 times per week duration: 15-30 minutes/day seatbelt use: always do you feel safe at home: Yes ROS Constitutional Constitutional: Denies fever(s) or weight loss Eyes Eyes: Reports systems reviewed and no addt'l complaints, except as documented ENT HEENT: Reports systems reviewed and no addt'l complaints, except as documented Cardiovascular Cardiovascular: Reports palpitations; Denies chest pain at rest, chest pain with activity, dyspnea at rest, dyspnea on exertion, edema or paroxysmal nocturnal dyspnea Respiratory/Chest Respiratory/Chest: Denies dyspnea on exertion, productive cough, shortness of breath at rest or shortness of breath with exertion Gastrointestinal Gastrointestinal: Denies change in bowel habits, nausea, vomiting or weight changes Genitourinary Genitourinary: Denies difficulty urinating Musculoskeletal Musculoskeletal: Denies joint stiffness or muscle weakness Integumentary Integumentary: Denies lesions Neurologic Neurologic: Reports dizziness and syncope Psychiatric Psychiatric: Denies anxiety Endocrine Endocrinology: Denies excessive sweating or fatigue Hematologic/Lymphatic Hematologic/Lymphatic: Denies anemia Allergic/Immunologic Allergic/Immunologic: Denies seasonal rhinorrhea Risk Stratification Risk Stratification Applicable: No Objective Data Vital Signs: Vital Signs Temp Pulse Resp BP Pulse Ox O2 Del Method 97.6 F L 57 L 16 142/55 H 97 Room Air 11/22/22 05:41 11/22/22 05:41 11/22/22 05:41 11/22/22 05:41 11/22/22 05:41 11/22/22 07:44 Oxygen Delivery Method Room Air Weight: 160 lb 11.472 oz Body Mass Index (BMI) 32.4 Intake & Output: Intake and Output for Last 24 Hours 11/20/22 11/21/22 11/22/22 23:59 23:59 23:59 Intake Total Balance Lab / Micro Data Result Diagrams: 11/22/22 03:50 11/22/22 03:50 Labs: Laboratory Results - last 24 hr 11/21/22 21:12: WBC 10.6, RBC 3.73 L, Hgb 11.5 L, Hct 35.8 L, MCV 96.0, MCH 30.8, MCHC 32.1, RDW Std Deviation 54.4 H, RDW Coeff of Blanca 15.4 H, Plt Count 268, MPV 9.8, Immature Gran % (Auto) 0.400, Neut % (Auto) 52.9, Lymph % (Auto) 33.8, [facility] % (Auto) 8.9, Eos % (Auto) 3.1, Baso % (Auto) 0.9, Absolute Neuts (auto) 5.6, Absolute Lymphs (auto) 3.57, Nucleated RBC % 0 11/21/22 21:12: PT 24.5 H, INR 2.2, APTT 34.4 11/21/22 21:12: Sodium 138, Potassium 4.2, Chloride 104, Carbon Dioxide 28.0, Anion Gap 6, BUN 17, Creatinine 0.76, Estim Creat Clear Calc 51.05, Est GFR (MDRD) Af Amer 94, Est GFR (MDRD) Non-Af 78, BUN/Creatinine Ratio 22.5 H, Glucose 194 H, Calcium 9.3, Troponin I High Sens 8 11/21/22 21:12: Magnesium 1.6 11/21/22 23:20: Troponin I High Sens 10 11/22/22 03:50: WBC 11.6 H, RBC 3.45 L, Hgb 11.1 L, Hct 32.5 L, MCV 94.2, MCH 32.2 H, MCHC 34.2 D, RDW Std Deviation 53.6 H, RDW Coeff of Blanca 15.6 H, Plt Count 238, MPV 9.3, Immature Gran % (Auto) 0.300, Neut % (Auto) 60.8, Lymph % (Auto) 26.6, [facility] % (Auto) 9.0, Eos % (Auto) 2.6, Baso % (Auto) 0.7, Absolute Neuts (auto) 7.0, Absolute Lymphs (auto) 3.07, Nucleated RBC % 0 11/22/22 03:50: Sodium 142, Potassium 3.7, Chloride 110 H, Carbon Dioxide 25.0, Anion Gap 7, BUN 16, Creatinine 0.51 L, Estim Creat Clear Calc 49.69, Est GFR (MDRD) Af Amer 150, Est GFR (MDRD) Non-Af 124, BUN/Creatinine Ratio 31.6 H, Glucose 126 H, Calcium 8.4 L, Total Bilirubin 0.60, AST 21, ALT 20, Alkaline Phosphatase 35 L, Total Protein 6.4, Albumin 3.1 L, Globulin 3.3, Albumin/Globulin Ratio 0.9, Triglycerides 56, Cholesterol 118, LDL Cholesterol 44, VLDL Cholesterol 11, HDL Cholesterol 63, TSH 1.46, Free T4 1.37 11/22/22 03:50: PT 25.8 H, INR 2.3 11/22/22 03:50: Troponin I High Sens 9 11/22/22 06:44: POC Glucose 136 H Cardiology Labs/Tests 11/21/22 21:12: WBC 10.6, RBC 3.73 L, Hgb 11.5 L, Hct 35.8 L, MCV 96.0, MCH 30.8, MCHC 32.1, Plt Count 268, MPV 9.8, Immature Gran % (Auto) 0.400, Neut % (Auto) 52.9, Lymph % (Auto) 33.8, [facility] % (Auto) 8.9, Eos % (Auto) 3.1, Baso % (Auto) 0.9, Absolute Neuts (auto) 5.6, Nucleated RBC % 0 11/21/22 21:12: PT 24.5 H, INR 2.2, APTT 34.4 11/21/22 21:12: Sodium 138, Potassium 4.2, Chloride 104, Carbon Dioxide 28.0, Anion Gap 6, BUN 17, Creatinine 0.76, Est GFR (MDRD) Af Amer 94, Est GFR (MDRD) Non-Af 78, BUN/Creatinine Ratio 22.5 H, Glucose 194 H, Calcium 9.3 11/21/22 21:12: Magnesium 1.6 11/22/22 03:50: WBC 11.6 H, RBC 3.45 L, Hgb 11.1 L, Hct 32.5 L, MCV 94.2, MCH 32.2 H, MCHC 34.2 D, Plt Count 238, MPV 9.3, Immature Gran % (Auto) 0.300, Neut % (Auto) 60.8, Lymph % (Auto) 26.6, [facility] % (Auto) 9.0, Eos % (Auto) 2.6, Baso % (Auto) 0.7, Absolute Neuts (auto) 7.0, Nucleated RBC % 0 11/22/22 03:50: Sodium 142, Potassium 3.7, Chloride 110 H, Carbon Dioxide 25.0, Anion Gap 7, BUN 16, Creatinine 0.51 L, Est GFR (MDRD) Af Amer 150, Est GFR (MDRD) Non-Af 124, BUN/Creatinine Ratio 31.6 H, Glucose 126 H, Calcium 8.4 L, Total Bilirubin 0.60, Triglycerides 56, Cholesterol 118, LDL Cholesterol 44, VLDL Cholesterol 11, HDL Cholesterol 63 11/22/22 03:50: PT 25.8 H, INR 2.3 Rhythm: EKG: ECHO: Stress Test: Cardiac Cath: PCI: CT Surgery: Holter monitor: EPS: PPM: CXR: Chest CT Scan: Radiography Diagnostic Testing: Radiology Impression Brain CT 11/21/22 21:06 IMPRESSION: 1. Chronic involutional changes without evidence of acute intracranial or calvarial abnormality. 2. Soft tissue hematoma in the right frontal area. AIDOC was utilized to assist in identifying pertinent positive findings in this case. Electronically Signed: Dakota Moreno DO at 21:51 EDT Reading Location ID and State: [address] [place] [address] Tel [phone], Service support , Cervical Spine CT 11/21/22 21:06 IMPRESSION: Degenerative changes cervical spine without acute fracture or subluxation. Note: MRI is more sensitive than CT in detecting cord injury, ligamentous injury and epidural hematoma. If there is continued clinical concern for any of these entities, MRI should be considered. AIDOC was utilized to assist in identifying pertinent positive findings in this case. Electronically Signed: Dakota Moreno DO at 21:55 EDT Reading Location ID and State: [facility] / [place] Tel [phone], Service support , Chest X-Ray 11/21/22 21:15 IMPRESSION: No cardiomegaly without acute pulmonary disease. Electronically Signed: Dakota Moreno DO at 21:29 EDT Reading Location ID and State: [facility] / [place] Tel [phone], Service support ,
[2022-11-22] MEDS: Aspirin 81 MG TAB.CHEW PO (09:45)
[2022-11-22] MEDS: Loratadine 10 MG Tablet PO (09:45)
[2022-11-22] MEDS: Flecainide 100 MG Tablet 50 MG PO ×2 (09:45→21:31)
[2022-11-22] MEDS: amLODIPine 5 MG Tablet PO (09:47)
[2022-11-22] MEDS: hydroCHLOROthiazide 25 MG Tablet PO (09:47)
[2022-11-22] MEDS: Losartan Potassium 50 MG Tablet PO (09:47)
[2022-11-22 11:40] VITALS: BP 138/78; PULSE 78; RESP 18; TEMP 36.7; O2SAT 97
--- NOTE | 2022-11-22 11:54 | CASEMGMT ---
Social Work As per initial nursing assessment, pt has LW/POA on file here, and daughter Marychuy Currie is healthcare POA. SW spoke w/pt to let her know they are not on file here, and explained she can bring them in to HIM after discharge if she would like them on file. Pt states understanding. THANH Martines
[2022-11-22 12:01] LABS: Bedside Glucose 145 mg/dL (74-106)
[2022-11-22 14:00] VITALS: BP 149/64; PULSE 59; RESP 18; TEMP 36.6; O2SAT 99
[2022-11-22 15:15] VITALS: O2SAT 99
[2022-11-22 19:34] VITALS: BP 144/68; PULSE 54; RESP 16; TEMP 36.4; O2SAT 100
[2022-11-22 19:35] VITALS: O2SAT 100
[2022-11-22] MEDS: Atorvastatin Calcium 20 MG Tablet PO (21:31)
[2022-11-22 23:15] LABS: Bedside Glucose 147 mg/dL (74-106)
[2022-11-23] VITALS (7 sets, daily range): BP systolic 126–143; BP diastolic 49–57; PULSE 55–62; RESP 16; TEMP 36.2–36.5; O2SAT 95–98; BMI 32.5
[2022-11-23] MEDS: Levothyroxine 75 MCG Tablet PO (05:26)
[2022-11-23 07:01] LABS: Bedside Glucose 117 mg/dL (74-106)
--- NOTE | 2022-11-23 08:42 | PN.HOSP_ITS ---
Reason for Visit Reason for Visit: Diagnoses Essential (primary) hypertension (11/22/22) Paroxysmal atrial fibrillation (11/22/22) Occlusion and stenosis of unspecified carotid artery (11/22/22) Syncope and collapse (11/22/22) Subjective Subjective No events. Feels well. Objective Data Objective Data Vital Signs: Vital Signs Temp Pulse Resp BP Pulse Ox O2 Del Method 36.3 C L 59 L 16 136/57 H 95 Room Air 11/23/22 03:51 11/23/22 03:51 11/23/22 03:51 11/23/22 03:51 11/23/22 07:42 11/23/22 07:42 Oxygen Delivery Method Room Air Weight: 73 kg Body Mass Index (BMI) 32.5 Intake & Output: Intake and Output for Last 24 Hours 11/21/22 11/22/22 11/23/22 23:59 23:59 23:59 Intake Total 1540 / 1540 50 / 50 Output Total 400 / 400 350 / 350 Balance 1140 / 1140 -300 / -300 Lab / Micro Data Result Diagrams: 11/22/22 03:50 11/22/22 03:50 Labs: Laboratory Results - last 24 hr 11/22/22 11:37: POC Glucose 145 H 11/22/22 21:24: POC Glucose 147 H 11/23/22 06:38: POC Glucose 117 H Radiography Diagnostic Testing: Radiology Impression Echocardiogram 11/21/22 23:28 Interpretation Summary Normal LV size. Left ventricular systolic function is normal. The estimated ejection fraction is 55 %. Stage 1 diastolic dysfunction. Mild aortic stenosis. Mean aortic valve gradient 17 mmHg. Contrast injection was performed. Ordering Physician: Denise Fenton Referring Physician: ETTA LOPEZ Performed By: Clarita Thomas RCS Physical Exam Const alert and no apparent distress HEENT head/scalp atraumatic and moist oral mucous membranes Resp normal respiratory effort, no retractions, no use of accessory muscles and clear to auscultation bilaterally Cardio regular rate, regular rhythm, S1 normal heart sound and S2 normal heart sound Assessment & Plan Assessment/Plan (1) Syncope: PLAN: Two events at son's home. Found slumped over then another falling out of chair hitting her head. 08/05 bradycardia ECHO shows an EF of 55% TSH and FT4 WNL PT/OT Plan for PPM on 11/24 as INR trends lower. PLAN: Plan Chronic conditions: * PAF: We will continue patient flecainide with continued Coumadin with INR trending, therapeutic upon presentation with INR 2.2. Patient only takes metoprolol as needed therefore we will continue to monitor and may dose with IV Lopressor as needed or Cardizem cautiously given bradycardic history. [facility] Holter monitor assessment/ with report noting average heart rate 78 sinus rhythm with paroxysmal A-fib with minimum heart rate 32 and maximum heart rate 169 with a total of 22 ventricular ectopic beats with no specific runs, 32 supraventricular ectopic beats with 1 atrial couplet, 1 atrial run totaling only 3 beats with evidence of atrial fibrillation comprising approximately 29.9% of the total QRS complexes. 09/17/2020 echocardiogram with normal LV size, normal LV systolic function, EF 60%, stage I diastolic dysfunction, mean AV gradient 16 mmHg with mild aortic stenosis. * Carotid stenosis: We will continue Coumadin with INR trending, statin therapy, hypertensive regimen as noted in diabetic regimen with adjustments as noted. * Chronic normocytic anemia: Admission hemoglobin 11.5, has vacillated, last noted 10/07/2022 hemoglobin 13 but prior to this 12/18/2021 hemoglobin 11.9, will await repeat CBC and further evaluate if necessary. * Hypertension: Continue home regimen including amlodipine, valsartan/hydrochlorothiazide but clarifying his regimen is actually up-to-date with hold parameters as needed, PRN hydralazine. Patient of note only uses metoprolol as needed and does not take it chronically secondary to issues with bradycardia. * Hyperlipidemia: We will continue patient on statin therapy. * Diabetes mellitus type II: Hold oral home regimen, ADA diet, accu checks w/ ISS. * Hypothyroidism: We will continue patient home levothyroxine regimen, TSH/free T4 requested given presentation. * Obesity: Weight loss and lifestyle changes encouraged. DVT Prophylaxis: not indicated as she is already anticoagulated CODE status: Full code Charges/Coding Visit Charges Inpatient E&M: 38146 Subs Hosp L2
[2022-11-23 08:46] LABS: International Normalized Ratio 1.8; Prothrombin Time (Protime)PT. 20.7 SECONDS (11.7-14.9)
[2022-11-23] MEDS: Loratadine 10 MG Tablet PO (09:52)
[2022-11-23] MEDS: Flecainide 100 MG Tablet 50 MG PO ×2 (09:52→22:12)
[2022-11-23] MEDS: amLODIPine 5 MG Tablet PO (09:52)
[2022-11-23] MEDS: hydroCHLOROthiazide 25 MG Tablet PO (09:52)
[2022-11-23] MEDS: Losartan Potassium 50 MG Tablet PO (09:52)
[2022-11-23] MEDS: Aspirin 81 MG TAB.CHEW PO (09:53)
--- NOTE | 2022-11-23 11:45 | CASEMGMT ---
DAVIE VAUGHN Face to Face with patient for initial transition planning/care coordination assessment. RN CM introduced self and role at [facility]. Patient sitting in chair, alert and oriented, daughter at bedside. Patient willing to participate in assessment and is able to answer all questions appropriately. Care providers, pharmacy, and demographics verified. Patient wishes to discharge home, denies need for home health at this time. Patient states she has no further needs or concerns at this time. CM to follow for discharge planning needs that may arise. PCP: Dequan Specialists: Margaret red hat open stack administrator; [facility]; Jennifer, pain management [place] Preferred Pharmacy: [facility] Insurance: [employer] [place], [employer] Prescription Benefit: yes Living Will/HPOA: yes, daughter Marychuy Currie LNOK: daughters Living Arrangements: Patient lives alone in a 2 story home with bed and bath on first floor. Patient state she is independent at home. Transportation: self, family DME/HHC: Michelle has shower chair, BSC, cane, walker, wheelchair, grab bars at home. No previous HHC or SNF Disposition Plan: Patient to discharge home with family support and follow-up plans in place. Jemima REIS, RN, CM
[2022-11-23 12:30] LABS: Bedside Glucose 105 mg/dL (74-106)
[2022-11-23 12:55] LABS: Bedside Glucose 120 mg/dL (74-106)
[2022-11-23] MEDS: Acetaminophen 325 MG Tablet 650 MG PO ×2 (15:38→22:13)
[2022-11-23 17:46] LABS: Bedside Glucose 118 mg/dL (74-106)
[2022-11-23] MEDS: Atorvastatin Calcium 20 MG Tablet PO (22:12)
[2022-11-23 22:40] LABS: Bedside Glucose 126 mg/dL (74-106)
[2022-11-24] VITALS (16 sets, daily range): BP systolic 131–164; BP diastolic 47–69; PULSE 55–62; RESP 16–18; TEMP 36.4–37; O2SAT 96–100; BMI 32.7
[2022-11-24 07:25] LABS: Bedside Glucose 115 mg/dL (74-106)
[2022-11-24] MEDS: Flecainide 100 MG Tablet 50 MG PO ×2 (08:53→21:54)
[2022-11-24] MEDS: 0.9% Normal Saline 1,000 ML 75 ML IV (08:53)
[2022-11-24] MEDS: amLODIPine 5 MG Tablet PO (08:53)
[2022-11-24] MEDS: Losartan Potassium 50 MG Tablet PO (08:53)
--- NOTE | 2022-11-24 09:46 | PCM.PN.HOSP ---
Reason for Visit Reason for Visit: Diagnoses Essential (primary) hypertension (11/22/22) Paroxysmal atrial fibrillation (11/22/22) Occlusion and stenosis of unspecified carotid artery (11/22/22) Syncope and collapse (11/22/22) Subjective Subjective Feeling well, no chest pain or shortness of breath, minimal swelling lower extremities Objective Data Objective Data Vital Signs: Vital Signs Temp Pulse Resp BP Pulse Ox O2 Del Method 98.3 F 62 16 154/65 H 97 Room Air 11/24/22 08:51 11/24/22 08:51 11/24/22 08:51 11/24/22 08:51 11/24/22 08:51 11/24/22 08:51 Oxygen Delivery Method Room Air Weight: 73.5 kg Body Mass Index (BMI) 32.7 Intake & Output: Intake and Output for Last 24 Hours 11/22/22 11/23/22 11/24/22 23:59 23:59 23:59 Intake Total 1540 / 1540 1770 / 1770 Output Total 400 / 400 700 / 700 Balance 1140 / 1140 1070 / 1070 Lab / Micro Data Result Diagrams: 11/24/22 10:05 11/24/22 10:05 Labs: Laboratory Results - last 24 hr 11/22/22 16:06: POC Glucose 120 H 11/23/22 12:11: POC Glucose 105 11/23/22 16:16: POC Glucose 118 H 11/23/22 22:18: POC Glucose 126 H 11/24/22 06:15: POC Glucose 115 H Physical Exam Narrative General: Alert, oriented, no apparent distress HEENT: Atraumatic, normocephalic Eyes: Anicteric, normal conjunctiva, extraocular movements grossly intact Neck: Supple Respiratory: Clear to auscultation bilaterally, normal respiratory effort Cardiovascular: Regular rate and rhythm GI: Soft, nontender, nondistended Extremities: Trace to 1+ lower extremity pitting edema Musculoskeletal: Moving all extremities Neuro: No overt focal neurological deficits Skin: No rashes appreciated Psych: Cooperative Assessment & Plan Assessment/Plan (1) Syncope: PLAN: Plan #syncope secondary to bradycardia -2 events prior to admission -TSH and free T4 within normal limits -Echo EF 55% -For permanent pacemaker 11/24/2022 #pafib -Cont flecanide -holding coum for PPM, this will be resumed and cardiology follow-up appointment -Cont BB #Carotid stenosis -Resume coum when able #HTN -Cont home meds #Type 2 diabetes mellitus -Glucose checks and sliding scale insulin #Hypothyroidism -TSH within normal limits -Continue Synthroid DVT Prophylaxis: SCDs while awaiting permanent pacemaker due to subtherapeutic INR now that is been held CODE status: Full code Charges/Coding Visit Charges Inpatient E&M: 30791 Subs Hosp L2
[2022-11-24 10:36] LABS: Absolute Lymphocyte Count 2.71 X10^3/uL (0.83-4.51); Absolute Neutrophil Count 4.6 X10^3/uL (2.0-7.7); Basophil# 0.08 X10^3/uL; Basophil% 0.9 % (0-1); Eosinophils% 3.5 % (0-5); Hematocrit 35.6 % (37-47); Hemoglobin 11.7 g/dL (12.0-15.0); Lymphocyte # 2.71 X10^3/ul (0.83-4.51); Mean Corp Hgb Conc 32.9 g/dL (32-36); Mean Corpuscular Volume 94.4 fL (81-99); Mean Platelet Vol. 9.8 fl (6.2-12.0); Monocyte# 0.76 X10^3/uL; NRBC Flagged by Analyzer 0 % (0-5); Neutrophil # 4.62 X10^3/uL (2.7-7.7); Neutrophil % 54.5 % (47-70); Platelet Count 264 K/mm3 (150-450); RBC Distribution Width CV 15.1 % (11.6-14.6); RBC Distribution Width SD 52.6 fl (35.1-43.9); Red Blood Count 3.77 M/mm3 (4.2-5.4); White Blood Count 8.5 K/mm3 (4.4-11.0)
[2022-11-24 10:47] LABS: International Normalized Ratio 1.3
[2022-11-24 11:10] LABS: Anion Gap 7 (5-15); BUN 14 mg/dL (7-18); BUN/Creat Ratio 26.7 RATIO (10-20); Chloride 102 mmol/L (98-107); Creatinine, Serum 0.52 mg/dL (0.55-1.02); EST Glomerular Filtration Rate 119 mL/min (>60); Est Glom Filt Rate - Afr Amer 144 mL/min (>60); Estimated Creatinine Clearance 50.33 ml/min; Glucose 136 mg/dL (74-106); Potassium 3.9 mmol/L (3.5-5.1); Sodium Level 134 mmol/L (136-145)
[2022-11-24 11:45] LABS: Bedside Glucose 135 mg/dL (74-106)
--- NOTE | 2022-11-24 14:50 | CL.IE_ITS ---
Patient: YOEL SCOTT Study Date: 11/24/2022 Performing: Cyril Robles MD : 1940 Age: 82 Gender: female PROCEDURES PERFORMED [id number])INITIAL PACER INSERT+DUAL LEADS INDICATIONS Syncope Tachy/be syndrome PROCEDURE DETAILS The patient was brought to the Catheterization Lab in the postabsorptive nonsedated state. Informed consent was obtained prior to the procedure. Local anesthetic was given subcutaneously to the left subclavian region with Lidocaine 2%. Incision was made to the left subclavicular area. Access was achieved and a guidewire was advanced into the left subclavian vein. PPM ventricular lead was inserted / positioned to right ventricular septal wall. PPM ventricular lead testing performed. PPM ventricular lead testing performed. The sheath was then removed. PPM atrial lead was inserted / positioned to the right atrial appendage. PPM atrial lead testing performed. PPM generator was attached to the lead(s) and inserted into the pocket. PPM generator was then interrogated by the professional programmer analyst. The Ventricular PM lead sutured in place with. The Atrial lead sutured in place with. The PPM generator was sutured in place with. Device pocket was irrigated with antibiotic. Subcutaneous closure was completed with. Subcutaneous closure was completed with. Skin closure was completed with. Steri-strips applied to left subclavicular incision. Instrument, sponge, and needle counts were noted to be normal. The patient tolerated the procedure well. Estimated Blood Loss: 15 ml's IMPLANTED / EX-PLANTED DEVICES IMPLANTED DEVICE(S): PPM Ventricular lead - Tool Specialist: [employer], Model # 7841 , Serial # [id number] PPM Atrial lead - Tool Specialist: [employer], Model # 7840 , Serial # [id number] PPM Generator - Tool Specialist: [employer], Model # L111 , Serial # [id number] DEVICE PARAMETERS DEVICE PARAMETERS: rate response on Mode - DDD lower rate - 60 upper rate - 130 rate response off Mode- DDD Lower rate- 60 Upper rate- 130 CONCLUSIONS / RECOMMENDATIONS Device Conclusions: Successful implantation of a dual chamber pacemaker Device Recommendations: Follow up with Primary Care Physician PROCEDURE MEDICATIONS Fentanyl 50 mcg IV Versed 1 mg IV Versed 1 mg IV Versed 1 mg IV Oxygen: 2 L/min via nasal cannula Antibiotic given in appropriate timeframe. Clindamycin 900 mg IV 11/24/2022 13:27:30 Signed By Cyril Robles MD On 11/24/2022 14:49:47 Cyril Robles MD
--- NOTE | 2022-11-24 14:51 | PN.CARD_ITS ---
Subjective Subjective Patient seen and evaluated. Objective Data Vital Signs: Vital Signs Temp Pulse Resp BP Pulse Ox O2 Del Method 98.3 F 62 16 154/65 H 97 Room Air 11/24/22 08:51 11/24/22 08:51 11/24/22 08:51 11/24/22 08:51 11/24/22 08:51 11/24/22 08:51 Oxygen Delivery Method Room Air Weight: 162 lb 0.636 oz Body Mass Index (BMI) 32.7 Intake & Output: Intake and Output for Last 24 Hours 11/22/22 11/23/22 11/24/22 23:59 23:59 23:59 Intake Total 1540 / 1540 1770 / 1770 120 / 120 Output Total 400 / 400 700 / 700 Balance 1140 / 1140 1070 / 1070 120 / 120 Lab / Micro Data Result Diagrams: 11/24/22 10:05 11/24/22 10:05 Labs: Laboratory Results - last 24 hr 11/23/22 16:16: POC Glucose 118 H 11/23/22 22:18: POC Glucose 126 H 11/24/22 06:15: POC Glucose 115 H 11/24/22 10:05: WBC 8.5, RBC 3.77 L, Hgb 11.7 L, Hct 35.6 L, MCV 94.4, MCH 31.0, MCHC 32.9, RDW Std Deviation 52.6 H, RDW Coeff of Blanca 15.1 H, Plt Count 264, MPV 9.8, Immature Gran % (Auto) 0.100, Neut % (Auto) 54.5, Lymph % (Auto) 32.0, [place] % (Auto) 9.0, Eos % (Auto) 3.5, Baso % (Auto) 0.9, Absolute Neuts (auto) 4.6, Absolute Lymphs (auto) 2.71, Nucleated RBC % 0 11/24/22 10:05: Sodium 134 L, Potassium 3.9, Chloride 102, Carbon Dioxide 25.0, Anion Gap 7, BUN 14, Creatinine 0.52 L, Estim Creat Clear Calc 50.33, Est GFR (MDRD) Af Amer 144, Est GFR (MDRD) Non-Af 119, BUN/Creatinine Ratio 26.7 H, Glucose 136 H, Calcium 9.0 11/24/22 10:05: PT 16.0 H, INR 1.3 11/24/22 11:23: POC Glucose 135 H Cardiology Labs/Tests 11/24/22 10:05: WBC 8.5, RBC 3.77 L, Hgb 11.7 L, Hct 35.6 L, MCV 94.4, MCH 31.0, MCHC 32.9, Plt Count 264, MPV 9.8, Immature Gran % (Auto) 0.100, Neut % (Auto) 54.5, Lymph % (Auto) 32.0, [place] % (Auto) 9.0, Eos % (Auto) 3.5, Baso % (Auto) 0.9, Absolute Neuts (auto) 4.6, Nucleated RBC % 0 11/24/22 10:05: Sodium 134 L, Potassium 3.9, Chloride 102, Carbon Dioxide 25.0, Anion Gap 7, BUN 14, Creatinine 0.52 L, Est GFR (MDRD) Af Amer 144, Est GFR (MDRD) Non-Af 119, BUN/Creatinine Ratio 26.7 H, Glucose 136 H, Calcium 9.0 11/24/22 10:05: PT 16.0 H, INR 1.3 Rhythm: EKG: ECHO: Stress Test: Cardiac Cath: PCI: CT Surgery: Holter monitor: EPS: PPM: CXR: Chest CT Scan: Physical Exam Const alert, oriented x3 and no apparent distress General Appearance: cooperative HEENT hearing grossly normal bilaterally Head and Scalp: atraumatic Eyes EOMs intact bilaterally Neck General: normal visual inspection Chest inspection of chest normal and palpation of chest normal Resp normal respiratory effort Auscultation: clear to auscultation bilaterally Cardio regular rate, regular rhythm, S1 normal heart sound and S2 normal heart sound Jugular Venous Distention: JVD GI normal to inspection, nondistended, normoactive bowel sounds Extremity normal capillary refill and no pedal edema Peripheral Pulses: Yes pulses 2+ throughout and femoral pulses present Skin no rashes or lesions noted Neuro oriented x3 and CN's II-XII intact bilaterally Psych Appearance: grossly normal and appropriate Assessment & Plan Assessment/Plan (1) Paroxysmal atrial fibrillation: PLAN: She presents with paroxysmal atrial fibrillation. This has been going on and she has been on a beta-josy as well as flecainide for this in the past. It does not appear that she is tolerating this well and has had some bradycardia and tachycardia episodes. She underwent a dual-chamber pacemaker this afternoon. We will resume Coumadin at office appointment Resume beta-josy and flecainide (2) Essential (primary) hypertension: PLAN: Her blood pressure appears to be under good control at this time I would not recommend that we make any major changes. (3) Carotid artery stenosis: PLAN: She does have a history of moderate carotid disease. I do not think that is contributing to the current presentation. (4) Syncope: PLAN: She did have an episode of syncope which I suspect is bradycardia arrhythmia related. She underwent a dual-chamber permanent pacemaker implantation today and appears to be stable. Thank you for allowing me to participate in the care of your patient. Please don't hesitate to call if any issues arise.
[2022-11-24 17:05] LABS: Bedside Glucose 110 mg/dL (74-106)
[2022-11-24] MEDS: Acetaminophen 325 MG Tablet PO ×2 (17:05→23:15)
[2022-11-24] MEDS: Insulin Lispro 100 UNIT/ML INSULN.PEN SC (21:53)
[2022-11-24] MEDS: Atorvastatin Calcium 20 MG Tablet PO (21:54)
[2022-11-24 23:45] LABS: Bedside Glucose 151 mg/dL (74-106)
[2022-11-25] MEDS: 0.9% Normal Saline 1,000 ML 75 ML IV (01:04)
[2022-11-25 02:00] VITALS: BP 142/61; PULSE 59; RESP 16; TEMP 36.5; O2SAT 99
[2022-11-25 05:27] VITALS: BMI 32.6
--- NOTE | 2022-11-25 06:03 | RAD_ITS ---
INDICATION: Post permanent ICD/Pacemaker -- inspiration/expiration. Arms Down. Wet read to MD EXAMINATION/TECHNIQUE: X-RAY - AP and lateral views of chest COMPARISON: Chest x-ray from 11/21/2022 FINDINGS: LINES/DEVICES: Dual-lead left AICD in place. LUNGS: No overt pulmonary edema. Mild basilar atelectatic changes. No sizable pleural effusion. No detectable pneumothorax. MEDIASTINUM AND CARDIOVASCULAR STRUCTURES: Stable slightly prominent heart shadow. Atherosclerotic calcifications along aorta. BONES AND SOFT TISSUES: Skeletal degenerative changes. RAD/Chest 3 View IMPRESSION: Mild cardiomegaly and basilar atelectasis Electronically Signed: Frankie Reddy MD at 20:40 EDT ,
[2022-11-25 06:20] VITALS: BP 147/58; PULSE 59; RESP 18; TEMP 36.6; O2SAT 100
[2022-11-25] MEDS: Levothyroxine 75 MCG Tablet PO (06:23)
[2022-11-25] MEDS: Acetaminophen 325 MG Tablet PO (06:23)
[2022-11-25 06:51] LABS: Bedside Glucose 113 mg/dL (74-106)
--- NOTE | 2022-11-25 08:59 | PCM.PN.CARD ---
Subjective Subjective Patient seen and eval noted. Appears to be doing well. Status post pacemaker implantation. Objective Data Vital Signs: Vital Signs Temp Pulse Resp BP Pulse Ox O2 Del Method 97.8 F 59 L 18 147/58 H 100 Room Air 11/25/22 06:20 11/25/22 06:20 11/25/22 06:20 11/25/22 06:20 11/25/22 06:20 11/25/22 06:20 Oxygen Delivery Method Room Air Weight: 161 lb 13.109 oz Body Mass Index (BMI) 32.6 Intake & Output: Intake and Output for Last 24 Hours 11/23/22 11/24/22 11/25/22 23:59 23:59 23:59 Intake Total 1770 / 1770 871.25 / 871.25 728.75 / 728.75 Output Total 700 / 700 500 / 500 1000 / 1000 Balance 1070 / 1070 371.25 / 371.25 -271.25 / -271.25 Lab / Micro Data Result Diagrams: 11/24/22 10:05 11/24/22 10:05 Labs: Laboratory Results - last 24 hr 11/24/22 10:05: WBC 8.5, RBC 3.77 L, Hgb 11.7 L, Hct 35.6 L, MCV 94.4, MCH 31.0, MCHC 32.9, RDW Std Deviation 52.6 H, RDW Coeff of Blanca 15.1 H, Plt Count 264, MPV 9.8, Immature Gran % (Auto) 0.100, Neut % (Auto) 54.5, Lymph % (Auto) 32.0, [place] % (Auto) 9.0, Eos % (Auto) 3.5, Baso % (Auto) 0.9, Absolute Neuts (auto) 4.6, Absolute Lymphs (auto) 2.71, Nucleated RBC % 0 11/24/22 10:05: Sodium 134 L, Potassium 3.9, Chloride 102, Carbon Dioxide 25.0, Anion Gap 7, BUN 14, Creatinine 0.52 L, Estim Creat Clear Calc 50.33, Est GFR (MDRD) Af Amer 144, Est GFR (MDRD) Non-Af 119, BUN/Creatinine Ratio 26.7 H, Glucose 136 H, Calcium 9.0 11/24/22 10:05: PT 16.0 H, INR 1.3 11/24/22 11:23: POC Glucose 135 H 11/24/22 16:42: POC Glucose 110 H 11/24/22 21:51: POC Glucose 151 H 11/25/22 06:29: POC Glucose 113 H Cardiology Labs/Tests 11/24/22 10:05: WBC 8.5, RBC 3.77 L, Hgb 11.7 L, Hct 35.6 L, MCV 94.4, MCH 31.0, MCHC 32.9, Plt Count 264, MPV 9.8, Immature Gran % (Auto) 0.100, Neut % (Auto) 54.5, Lymph % (Auto) 32.0, [place] % (Auto) 9.0, Eos % (Auto) 3.5, Baso % (Auto) 0.9, Absolute Neuts (auto) 4.6, Nucleated RBC % 0 11/24/22 10:05: Sodium 134 L, Potassium 3.9, Chloride 102, Carbon Dioxide 25.0, Anion Gap 7, BUN 14, Creatinine 0.52 L, Est GFR (MDRD) Af Amer 144, Est GFR (MDRD) Non-Af 119, BUN/Creatinine Ratio 26.7 H, Glucose 136 H, Calcium 9.0 11/24/22 10:05: PT 16.0 H, INR 1.3 Rhythm: EKG: ECHO: Stress Test: Cardiac Cath: PCI: CT Surgery: Holter monitor: EPS: PPM: CXR: Chest CT Scan: Physical Exam Const alert, oriented x3 and no apparent distress General Appearance: cooperative HEENT hearing grossly normal bilaterally Head and Scalp: atraumatic Eyes EOMs intact bilaterally Neck General: normal visual inspection Chest inspection of chest normal and palpation of chest normal Resp normal respiratory effort Auscultation: clear to auscultation bilaterally Cardio regular rate, regular rhythm, S1 normal heart sound and S2 normal heart sound Jugular Venous Distention: JVD GI normal to inspection, nondistended, normoactive bowel sounds Extremity normal capillary refill and no pedal edema Peripheral Pulses: Yes pulses 2+ throughout and femoral pulses present Skin no rashes or lesions noted Neuro oriented x3 and CN's II-XII intact bilaterally Psych Appearance: grossly normal and appropriate Assessment & Plan Assessment/Plan (1) Paroxysmal atrial fibrillation: PLAN: She presents with paroxysmal atrial fibrillation. This has been going on and she has been on a beta-josy as well as flecainide for this in the past. It does not appear that she is tolerating this well and has had some bradycardia and tachycardia episodes. She underwent a dual-chamber pacemaker. We will resume Coumadin at office appointment Resume beta-josy and flecainide (2) Essential (primary) hypertension: PLAN: Her blood pressure appears to be under good control at this time I would not recommend that we make any major changes. (3) Carotid artery stenosis: PLAN: She does have a history of moderate carotid disease. I do not think that is contributing to the current presentation. (4) Syncope: PLAN: She did have an episode of syncope which I suspect is bradycardia arrhythmia related. She underwent a dual-chamber permanent pacemaker implantation yesterday and the check today demonstrates stability and chest x-ray demonstrates no significant abnormalities. Thank you for allowing me to participate in the care of your patient. Please don't hesitate to call if any issues arise.
--- NOTE | 2022-11-25 09:02 | DCINST_ITS ---
Discharge Instructions Diet Discharge Diet: No restrictions Activity Discharge Activity: May Not Drive Additional Activity Instructions:: May shower or bathe on [day 3]. Do not scrub the incision or soak in the tub. Just wash with soap and let the water run over the incision. Gently pat dry with towel. Medications: Take your pain medication as directed. Refer to your discharge instruction sheet for a list of medications you are to take. Dressing / Incision Call your doctor if your incision/area has: Continuous Slow Oozing, Sudden Increased Bleeding, Increased Pain/ Swelling, Increased Redness, Foul Smelling Discharge and Swelling at the incision site Call your doctor if you observe: Fever of 101 or Higher, Shortness of breath, Dizziness, Fainting spells, Swelling in the ankles, Chest pain, Prolonged hiccupping and Increased palpitations (irregular heartbeat) Suture Line Care: Avoid Pulling/Pushing and Avoid Pinching/Bending Cleanse incision/area with: Keep Dressing Clean & Dry Additional Dressing/Incision Instructions:: When dressing is removed, wash and dry incision. Keep covered with a light bandage if it is rubbing against your clothing. Do not cover the incision with an airtight bandage. Change the bandage daily. Do not remove steri strips. The strips will fall off on their own. Follow Up Care Please Follow Up With: Cyril Robles MD When: Pacer follow up on December 02, 2022 at 2 PM. Test Results: Test results from this visit will be discussed in further detail at your follow- up appointment, if applicable. Discharge Plan Admission Admit Date/Time: 11/22/22 16:07 Attending Provider: Lamar Lei Primary Care Provider: Hailey Baires Consulting Providers: Jorden Gonzalez ; Denise Fenton ; Jeremy Puri Discharge Orders/Prescriptions Prescriptions: No Action cyanocobalamin (vit B-12) 50 mcg lozenges 50 mcg lozenge 50 mcg PO DAILY metformin 500 mg tablet extended release 24 hr 2,000 mg PO 1700 Label Comments: TAKE 4 TABLETS BY MOUTH EVERY 24HR WITH EVENING MEAL amlodipine 5 mg tablet 5 mg PO DAILY multivitamin 1 EACH tablet 1 ea PO DAILY calcium carbonate 600 MG tablet 650 mg PO BID aspirin 81 MG tablet,chewable 81 mg PO DAILY@0800 valsartan-hydrochlorothiazide 1 EACH tablet 1 ea PO DAILY coenzyme Q10 100 MG capsule 200 mg PO DAILY rosuvastatin 10 MG tablet 10 mg PO QHS fish oil-dha-epa 1 EACH capsule 1 ea PO DAILY cetirizine 10 MG capsule 10 mg PO DAILY glucosam cardenas pqo-dxlrwgznu-M-Mn 1 EACH capsule 1 ea PO DAILY levothyroxine 75 mcg tablet 75 mcg PO MOTUWETHFR Rx Instructions: 75 mcg 5 days a week and 150 mcg on Sat/Sun levothyroxine 75 mcg tablet 150 mcg PO SUSA Label Comments: TAKE 1 TABLET BY MOUTH EVERY DAY. TAKE 2 TABLETS BY MOUTH TUESDAY AND TUESDAY warfarin 3 mg tablet 3 mg PO SUMOTUWETH Protocol: Dose Management Condition: Tuesday Dose/Route: 3 mg Instruction: 1 x 3 mg tablet Condition: Tuesday Dose/Route: 3 mg Instruction: 1 x 3 mg tablet Condition: Tuesday Dose/Route: 3 mg Instruction: 1 x 3 mg tablet Condition: Tuesday Dose/Route: 3 mg Instruction: 1 x 3 mg tablet Condition: Dose/Route: 3 mg Instruction: 1 x 3 mg tablet Condition: Tuesday Dose/Route: 6 mg Instruction: 2 x 3 mg tablets Condition: Tuesday Dose/Route: 6 mg Instruction: 2 x 3 mg tablets Protocol Text: Adjustment Start Date: Tuesday11/19/22 INR Value: 1.8 INR Date: 11/19/22 Recheck Date: 11/26/22 Rx Instructions: 3 mg M,T,W,S,S 6 MG TH AND F warfarin 4 mg tablet 6 mg PO FRSA Protocol: Dose Management Condition: Tuesday Dose/Route: 3 mg Instruction: 1 x 3 mg tablet Condition: Tuesday Dose/Route: 3 mg Instruction: 1 x 3 mg tablet Condition: Tuesday Dose/Route: 3 mg Instruction: 1 x 3 mg tablet Condition: Tuesday Dose/Route: 3 mg Instruction: 1 x 3 mg tablet Condition: Dose/Route: 3 mg Instruction: 1 x 3 mg tablet Condition: Tuesday Dose/Route: 6 mg Instruction: 2 x 3 mg tablets Condition: Tuesday Dose/Route: 6 mg Instruction: 2 x 3 mg tablets Protocol Text: Adjustment Start Date: Tuesday11/19/22 INR Value: 1.8 INR Date: 11/19/22 Recheck Date: 11/26/22 Label Comments: pt has tablets on hand for dose increase Rx Instructions: TUESDAY flecainide 50 mg tablet 50 mg PO Q12H Qty: 180 3RF metoprolol tartrate 25 mg tablet 12.5 mg PO DAILY PRN (Reason: breakthrough episodes of atrial fib) Qty: 30 11RF Referrals / Follow Up: Hailey Baires DO [Primary Care Provider] -
[2022-11-25 10:21] VITALS: BP 139/54; PULSE 62; RESP 16; TEMP 36; O2SAT 100
[2022-11-25 10:28] VITALS: PULSE 62
[2022-11-25] MEDS: Flecainide 100 MG Tablet 50 MG PO (10:28)
[2022-11-25] MEDS: hydroCHLOROthiazide 25 MG Tablet PO (10:28)
[2022-11-25] MEDS: Losartan Potassium 50 MG Tablet PO (10:28)
[2022-11-25] MEDS: Metoprolol(XL)Succ 50 MG Tablet PO (10:28)
[2022-11-25] MEDS: amLODIPine 5 MG Tablet PO (10:28)
[2022-11-25] MEDS: Aspirin 81 MG TAB.CHEW PO (10:29)
--- NOTE | 2022-11-25 11:14 | DCINST_ITS ---
Discharge Instructions Diet Discharge Diet: No restrictions Activity Additional Activity Instructions:: May shower or bathe on [day 3]. Do not scrub the incision or soak in the tub. Just wash with soap and let the water run over the incision. Gently pat dry with towel. Medications: Take your pain medication as directed. Refer to your discharge instruction sheet for a list of medications you are to take. Dressing / Incision Call your doctor if your incision/area has: Continuous Slow Oozing, Sudden Increased Bleeding, Increased Pain/ Swelling, Increased Redness, Foul Smelling Discharge and Swelling at the incision site Call your doctor if you observe: Fever of 101 or Higher, Shortness of breath, Dizziness, Fainting spells, Swelling in the ankles, Chest pain, Prolonged hiccupping and Increased palpitations (irregular heartbeat) Suture Line Care: Avoid Pulling/Pushing and Avoid Pinching/Bending Cleanse incision/area with: Keep Dressing Clean & Dry Additional Dressing/Incision Instructions:: When dressing is removed, wash and dry incision. Keep covered with a light bandage if it is rubbing against your clothing. Do not cover the incision with an airtight bandage. Change the bandage daily. Do not remove steri strips. The strips will fall off on their own. Follow Up Care Please Follow Up With: Cyril Robles MD Test Results: Test results from this visit will be discussed in further detail at your follow- up appointment, if applicable. Discharge Plan Admission Admit Date/Time: 11/22/22 16:07 Primary Reason for Your Visit: Episode of passing out Attending Provider: Lamar Lei Primary Care Provider: Hailey Baires Consulting Providers: Jorden Gonzalez ; Denise Fenton ; Jeremy Puri Instructions Patient Instructions: Living with a Pacemaker Additional Instructions / Restrictions: DISCHARGE INSTRUCTIONS PLEASE READ *Please take this with you to your next doctors appointment* -Please continue to hold your Coumadin until your follow-up evaluation in the cardiology office -You will need to follow-up with cardiology upon discharge, please call the office of Dr. Robles upon discharge to schedule your hospital follow-up appointment ) -You we will be taking metoprolol succinate 50 mg once daily, this is different than the small dose of metoprolol tartrate you are taking before. Would recommend disposing of metoprolol tartrate prescription and begin taking metoprolol succinate -Please call your primary care provider's office upon discharge to schedule a hospital follow up within 1 week. -For any concerning signs or symptoms please call 911 or proceed to the nearest emergency department Discharge Orders/Prescriptions Prescriptions: New metoprolol succinate 50 mg Tablet Extended Release 24 Hr 50 mg PO DAILY 30 Days Qty: 30 0RF Continued cyanocobalamin (vit B-12) 50 mcg lozenges 50 mcg lozenge 50 mcg PO DAILY amlodipine 5 mg tablet 5 mg PO DAILY multivitamin 1 EACH tablet 1 ea PO DAILY calcium carbonate 600 MG tablet 650 mg PO BID aspirin 81 MG tablet,chewable 81 mg PO DAILY@0800 valsartan-hydrochlorothiazide 1 EACH tablet 1 ea PO DAILY coenzyme Q10 100 MG capsule 200 mg PO DAILY rosuvastatin 10 MG tablet 10 mg PO QHS fish oil-dha-epa 1 EACH capsule 1 ea PO DAILY cetirizine 10 MG capsule 10 mg PO DAILY glucosam cardenas mdk-lkrtjzdzh-O-Mn 1 EACH capsule 1 ea PO DAILY levothyroxine 75 mcg tablet 75 mcg PO MOTUWETHFR Rx Instructions: 75 mcg 5 days a week and 150 mcg on Sat/Sun levothyroxine 75 mcg tablet 150 mcg PO SUSA Label Comments: TAKE 1 TABLET BY MOUTH EVERY DAY. TAKE 2 TABLETS BY MOUTH TUESDAY AND TUESDAY flecainide 50 mg tablet 50 mg PO Q12H Qty: 180 3RF Held metformin 500 mg tablet extended release 24 hr 2,000 mg PO 1700 Hold Instructions: Resume on 11/28/22. Label Comments: TAKE 4 TABLETS BY MOUTH EVERY 24HR WITH EVENING MEAL warfarin 3 mg tablet 3 mg PO SUMOTUWETH Hold Instructions: Resume on 12/08/22. Please continue to hold your Coumadin until your follow-up evaluation in the cardiology office. Note: hold day may need to be extended if you have not had your follow up appointment or per Cardiology discretion Protocol: Dose Management Condition: Tuesday Dose/Route: 3 mg Instruction: 1 x 3 mg tablet Condition: Tuesday Dose/Route: 3 mg Instruction: 1 x 3 mg tablet Condition: Tuesday Dose/Route: 3 mg Instruction: 1 x 3 mg tablet Condition: Tuesday Dose/Route: 3 mg Instruction: 1 x 3 mg tablet Condition: Dose/Route: 3 mg Instruction: 1 x 3 mg tablet Condition: Tuesday Dose/Route: 6 mg Instruction: 2 x 3 mg tablets Condition: Tuesday Dose/Route: 6 mg Instruction: 2 x 3 mg tablets Protocol Text: Adjustment Start Date: Tuesday11/19/22 INR Value: 1.8 INR Date: 11/19/22 Recheck Date: 11/26/22 Rx Instructions: 3 mg M,T,W,S,S 6 MG TH AND F warfarin 4 mg tablet 6 mg PO FRSA Hold Instructions: Resume on 12/08/22. Please continue to hold your Coumadin until your follow-up evaluation in the cardiology office. Note: hold day may need to be extended if you have not had your follow up appointment or per Cardiology discretion Protocol: Dose Management Condition: Tuesday Dose/Route: 3 mg Instruction: 1 x 3 mg tablet Condition: Tuesday Dose/Route: 3 mg Instruction: 1 x 3 mg tablet Condition: Tuesday Dose/Route: 3 mg Instruction: 1 x 3 mg tablet Condition: Tuesday Dose/Route: 3 mg Instruction: 1 x 3 mg tablet Condition: Dose/Route: 3 mg Instruction: 1 x 3 mg tablet Condition: Tuesday Dose/Route: 6 mg Instruction: 2 x 3 mg tablets Condition: Tuesday Dose/Route: 6 mg Instruction: 2 x 3 mg tablets Protocol Text: Adjustment Start Date: Tuesday11/19/22 INR Value: 1.8 INR Date: 11/19/22 Recheck Date: 11/26/22 Label Comments: pt has tablets on hand for dose increase Rx Instructions: TUESDAY Discontinued metoprolol tartrate 25 mg tablet 12.5 mg PO DAILY PRN (Reason: breakthrough episodes of atrial fib) Qty: 30 11RF Referrals / Follow Up: Cyril Robles MD [Med Staff - Active Staff] - See Referral Note (You will need to follow-up with cardiology upon discharge, please call the office of Dr. Robles upon discharge to schedule your hospital follow-up appointment (ph [phone])) Hailey Baires DO [Primary Care Provider] - Within 1 Week Disposition Disposition (needs filled in before D/C Order can be placed): Home, Self Care
--- NOTE | 2022-11-25 11:17 | PCM.DC.SUM ---
Providers Date of Admission: 11/22/22 Date of Discharge: 11/25/22 Primary Care Physician: Dr. Hailey Baires, DO Consultations 11/21/22 23:28 Consult: Cardiology Routine Consulting Provider: Jorden Gonzalez Reason for Consult: Syncope x 2, issues with episoded PAF w/ RVR, limited med ability. EMERGENT Consult: No MD Notified: Yes Date Notified: 11/21/22 Time Notified: 22:32 Method of Notification: Text Reason For Visit: SYNCOPE Diagnosis Discharge Diagnosis (1) Paroxysmal atrial fibrillation: Status: Chronic Code(s): I48.0 - Paroxysmal atrial fibrillation (2) Essential (primary) hypertension: Status: Chronic Code(s): I10 - Essential (primary) hypertension (3) Carotid artery stenosis: Status: Chronic Code(s): I65.29 - Occlusion and stenosis of unspecified carotid artery (4) Syncope: Status: Acute Code(s): R55 - Syncope and collapse (5) (HFpEF) heart failure with preserved ejection fraction: Status: Acute Code(s): I50.30 - Unspecified diastolic (congestive) heart failure Plan #syncope secondary to bradycardia #pafib #Carotid stenosis #HTN #Type 2 diabetes mellitus #Hypothyroidism #HFpEF w/ stage I diastolic dysfunction, unclear chronicity, not currently in exacerbation Medications at Discharge Home Medications aspirin 81 mg chewable tablet 81 mg PO DAILY@0800 heart health 08/28/16 calcium carbonate 600 mg calcium (1,500 mg) tablet 650 mg PO BID supplement 08/28/16 cetirizine 10 mg capsule 10 mg PO DAILY allergies 08/28/16 coenzyme Q10 100 mg capsule 200 mg PO DAILY supplement 08/28/16 fish oil-dha-epa 1,200 mg-144 mg-216 mg capsule 1 ea PO DAILY supplement 08/28/16 glucosamine cardenas dipot-chond cardenas sod-C-Mn 500 mg-400 mg-66 mg-3 mg cap 1 ea PO DAILY supplement 08/28/16 multivitamin 1 ea PO DAILY vitamin 08/28/16 rosuvastatin 10 mg tablet 10 mg PO QHS cholesterol 08/28/16 valsartan 160 mg-hydrochlorothiazide 25 mg tablet 1 ea PO DAILY blood pressure 08/28/16 warfarin 4 mg tablet 6 mg PO FRSA blood thinner 06/16/18 cyanocobalamin (vitamin B-12) 50 mcg lozenges (Vitamin B-12) 50 mcg PO DAILY vitamin 03/29/19 levothyroxine 75 mcg tablet 75 mcg PO MOTUWETHFR thyroid 03/31/21 metformin 500 mg tablet,extended release 24 hr 2,000 mg PO 1700 blood sugar 03/31/21 amlodipine 5 mg tablet 5 mg PO DAILY blood pressure 09/30/22 flecainide 50 mg tablet 50 mg PO Q12H #180 tabs 10/22/22 levothyroxine 75 mcg tablet 150 mcg PO SUSA thyroid 11/21/22 warfarin 3 mg tablet 3 mg PO SUMOTUWETH blood thinner 11/21/22 metoprolol succinate 50 mg tablet,extended release 24 hr 50 mg PO DAILY 30 days #30 tabs 11/25/22 Hospital Course Summary of Care Provided Minutes Spent on Discharge: 35 Hospital Course: 82-year-old female history of carotid artery stenosis, hypertension, hypothyroidism type 2 diabetes mellitus, paroxysmal atrial fibrillation on Coumadin presented to [facility] 11/21/2022 with 2 syncopal events. She been having intermittent elevated heart rate and palpitations as well as lightheadedness which prompted her to take an extra dose of metoprolol. She had previously been taken off due to difficulty with low heart rate. TSH and free T4 within normal limits, echo with EF of 55% and stage I diastolic dysfunction with mild aortic stenosis and no other notable abnormalities, syncope was suspected to be secondary to her bradycardia and she had a permanent place maker placed 11/24/2022. She tolerated this well and the day of discharge had no acute complaints. Discharge instructions as followed: -Please continue to hold your Coumadin until your follow-up evaluation in the cardiology office -You will need to follow-up with cardiology upon discharge, please call the office of Dr. Robles upon discharge to schedule your hospital follow-up appointment (ph [phone]) -You we will be taking metoprolol succinate 50 mg once daily, this is different than the small dose of metoprolol tartrate you are taking before.? Would recommend disposing of metoprolol tartrate prescription and begin taking metoprolol succinate -Please call your primary care provider's office upon discharge to schedule a hospital follow up within 1 week. -For any concerning signs or symptoms please call 911 or proceed to the nearest emergency department Discharge Activity: May Not Drive Additional Activity Instructions:: May shower or bathe on [day 3]. Do not scrub the incision or soak in the tub. Just wash with soap and let the water run over the incision. Gently pat dry with towel. Suture Line Care: Avoid Pulling/Pushing and Avoid Pinching/Bending Cleanse incision/area with: Keep Dressing Clean & Dry Additional Dressing/Incision Instructions:: When dressing is removed, wash and dry incision. Keep covered with a light bandage if it is rubbing against your clothing. Do not cover the incision with an airtight bandage. Change the bandage daily. Do not remove steri strips. The strips will fall off on their own. Follow Up Care Please Follow Up With: Cyril Robles MD When: Pacer follow up on December 02, 2022 at 2 PM. Physical Exam Narrative General: Alert, oriented, no apparent distress HEENT: Atraumatic, normocephalic Eyes: Anicteric, normal conjunctiva, extraocular movements grossly intact Neck: Supple Respiratory: Clear to auscultation bilaterally, normal respiratory effort Cardiovascular: Regular rate and rhythm GI: Soft, nontender, nondistended Extremities: Trace to 1+ lower extremity pitting edema Musculoskeletal: Moving all extremities Neuro: No overt focal neurological deficits Skin: No rashes appreciated Psych: Cooperative Weight / BMI Weight Weight: 73.4 kg Body Mass Index (BMI) 32.6 ABG / Lab / Microbiology Data Result Diagrams: 11/24/22 10:05 11/24/22 10:05 Laboratory: Laboratory Results - last 24 hr 11/24/22 11:23: POC Glucose 135 H 11/24/22 16:42: POC Glucose 110 H 11/24/22 21:51: POC Glucose 151 H 11/25/22 06:29: POC Glucose 113 H D/C Instructions Discharge Diet: No restrictions Additional Activity Instructions: May shower or bathe on [day 3]. Do not scrub the incision or soak in the tub. Just wash with soap and let the water run over the incision. Gently pat dry with towel. Medications: Take your pain medication as directed. Refer to your discharge instruction sheet for a list of medications you are to take. Call your doctor if your incision/area has: Continuous Slow Oozing, Sudden Increased Bleeding, Increased Pain/ Swelling, Increased Redness, Foul Smelling Discharge and Swelling at the incision site Call your doctor if you observe: Fever of 101 or Higher, Shortness of breath, Dizziness, Fainting spells, Swelling in the ankles, Chest pain, Prolonged hiccupping and Increased palpitations (irregular heartbeat) Suture Line Care: Avoid Pulling/Pushing and Avoid Pinching/Bending Cleanse incision/area with: Keep Dressing Clean & Dry Additional Dressing/Incision Instructions: When dressing is removed, wash and dry incision. Keep covered with a light bandage if it is rubbing against your clothing. Do not cover the incision with an airtight bandage. Change the bandage daily. Do not remove steri strips. The strips will fall off on their own. Please Follow Up With: Cyril Robles MD When: Pacer follow up on December 02, 2022 at 2 PM. Meaningful Use Info Meaningful Use Diagnoses (Choose all that apply): None applicable Discharge Plan Admission Admit Date/Time: 11/22/22 16:07 Primary Reason for Your Visit: Episode of passing out Attending Provider: Lamar Lei Primary Care Provider: Hailey Baires Consulting Providers: Jorden Gonzalez ; Denise Fenton ; Jeremy Puri Instructions Patient Instructions: Living with a Pacemaker Additional Instructions / Restrictions: DISCHARGE INSTRUCTIONS PLEASE READ *Please take this with you to your next doctors appointment* -Please continue to hold your Coumadin until your follow-up evaluation in the cardiology office -You will need to follow-up with cardiology upon discharge, please call the office of Dr. Robles upon discharge to schedule your hospital follow-up appointment ( [phone]) -You we will be taking metoprolol succinate 50 mg once daily, this is different than the small dose of metoprolol tartrate you are taking before. Would recommend disposing of metoprolol tartrate prescription and begin taking metoprolol succinate -Please call your primary care provider's office upon discharge to schedule a hospital follow up within 1 week. -For any concerning signs or symptoms please call 911 or proceed to the nearest emergency department Discharge Orders/Prescriptions Prescriptions: New metoprolol succinate 50 mg Tablet Extended Release 24 Hr 50 mg PO DAILY 30 Days Qty: 30 0RF Continued cyanocobalamin (vit B-12) 50 mcg lozenges 50 mcg lozenge 50 mcg PO DAILY amlodipine 5 mg tablet 5 mg PO DAILY multivitamin 1 EACH tablet 1 ea PO DAILY calcium carbonate 600 MG tablet 650 mg PO BID aspirin 81 MG tablet,chewable 81 mg PO DAILY@0800 valsartan-hydrochlorothiazide 1 EACH tablet 1 ea PO DAILY coenzyme Q10 100 MG capsule 200 mg PO DAILY rosuvastatin 10 MG tablet 10 mg PO QHS fish oil-dha-epa 1 EACH capsule 1 ea PO DAILY cetirizine 10 MG capsule 10 mg PO DAILY glucosam cardenas flz-wlujtxjwb-F-Mn 1 EACH capsule 1 ea PO DAILY levothyroxine 75 mcg tablet 75 mcg PO MOTUWETHFR Rx Instructions: 75 mcg 5 days a week and 150 mcg on Sat/Sun levothyroxine 75 mcg tablet 150 mcg PO SUSA Label Comments: TAKE 1 TABLET BY MOUTH EVERY DAY. TAKE 2 TABLETS BY MOUTH TUESDAY AND TUESDAY flecainide 50 mg tablet 50 mg PO Q12H Qty: 180 3RF Held metformin 500 mg tablet extended release 24 hr 2,000 mg PO 1700 Hold Instructions: Resume on 11/28/22. Label Comments: TAKE 4 TABLETS BY MOUTH EVERY 24HR WITH EVENING MEAL warfarin 3 mg tablet 3 mg PO SUMOTUWETH Hold Instructions: Resume on 12/08/22. Please continue to hold your Coumadin until your follow-up evaluation in the cardiology office. Note: hold day may need to be extended if you have not had your follow up appointment or per Cardiology discretion Protocol: Dose Management Condition: Tuesday Dose/Route: 3 mg Instruction: 1 x 3 mg tablet Condition: Tuesday Dose/Route: 3 mg Instruction: 1 x 3 mg tablet Condition: Tuesday Dose/Route: 3 mg Instruction: 1 x 3 mg tablet Condition: Tuesday Dose/Route: 3 mg Instruction: 1 x 3 mg tablet Condition: Dose/Route: 3 mg Instruction: 1 x 3 mg tablet Condition: Tuesday Dose/Route: 6 mg Instruction: 2 x 3 mg tablets Condition: Tuesday Dose/Route: 6 mg Instruction: 2 x 3 mg tablets Protocol Text: Adjustment Start Date: Tuesday11/19/22 INR Value: 1.8 INR Date: 11/19/22 Recheck Date: 11/26/22 Rx Instructions: 3 mg M,T,W,S,S 6 MG TH AND F warfarin 4 mg tablet 6 mg PO FRSA Hold Instructions: Resume on 12/08/22. Please continue to hold your Coumadin until your follow-up evaluation in the cardiology office. Note: hold day may need to be extended if you have not had your follow up appointment or per Cardiology discretion Protocol: Dose Management Condition: Tuesday Dose/Route: 3 mg Instruction: 1 x 3 mg tablet Condition: Tuesday Dose/Route: 3 mg Instruction: 1 x 3 mg tablet Condition: Tuesday Dose/Route: 3 mg Instruction: 1 x 3 mg tablet Condition: Tuesday Dose/Route: 3 mg Instruction: 1 x 3 mg tablet Condition: Dose/Route: 3 mg Instruction: 1 x 3 mg tablet Condition: Tuesday Dose/Route: 6 mg Instruction: 2 x 3 mg tablets Condition: Tuesday Dose/Route: 6 mg Instruction: 2 x 3 mg tablets Protocol Text: Adjustment Start Date: Tuesday11/19/22 INR Value: 1.8 INR Date: 11/19/22 Recheck Date: 11/26/22 Label Comments: pt has tablets on hand for dose increase Rx Instructions: TUESDAY Discontinued metoprolol tartrate 25 mg tablet 12.5 mg PO DAILY PRN (Reason: breakthrough episodes of atrial fib) Qty: 30 11RF Referrals / Follow Up: Cyril Robles MD [Med Staff - Active Staff] - See Referral Note (You will need to follow-up with cardiology upon discharge, please call the office of Dr. Robles upon discharge to schedule your hospital follow-up appointment ( [phone])) Hailey Baires DO [Primary Care Provider] - Within 1 Week Disposition Disposition (needs filled in before D/C Order can be placed): Home, Self Care Charges/Coding Visit Charges Inpatient E&M: 60317 Disch Hosp >30min
== END 2022-11-25 13:23 | disposition home or self-care (01) | DRG 243 ==
LOC: ED 22:31 → PCU 22:39
PROVIDERS: Internal Medicine Cardiovascular Disease; Admitting Provider Family Medicine; Emergency Provider Emergency Medicine; PCP Internal Medicine; Visit Provider Internal Medicine
DX: I49.5 Sick sinus syndrome (principal); I50.30 Unspecified diastolic (congestive) heart failure; I11.0 Hypertensive heart disease with heart failure; I48.0 Paroxysmal atrial fibrillation; E11.9 Type 2 diabetes mellitus without complications; E03.9 Hypothyroidism, unspecified; E78.5 Hyperlipidemia, unspecified; I65.29 Occlusion and stenosis of unspecified carotid artery; I35.0 Nonrheumatic aortic (valve) stenosis; S00.83XA Contusion of other part of head, initial encounter; W07.XXXA Fall from chair, initial encounter; Y92.009 Unspecified place in unspecified non-institutional (private) residence as the place of occurrence of the external cause; E66.9 Obesity, unspecified; Z68.33 Body mass index [BMI] 33.0-33.9, adult; Z79.01 Long term (current) use of anticoagulants; Z79.82 Long term (current) use of aspirin; Z79.890 Hormone replacement therapy; Z79.899 Other long term (current) drug therapy; Z95.0 Presence of cardiac pacemaker
CPT/HCPCS: 33208; 36415; 70450; 71045; 71047; 72125; 80048; 80053; 80061; 82962; 83735; 84439; 84443; 84484; 85025; 85610; 85730; 93005; 93306; 94668; 97161; 97166; 99152; 99153; 99285; J7030; J7040; J7050; A4216; C1894; C8929

== ENCOUNTER → 2022-12-06 | Outpatient (CLI) | payer OTHER, SELFPAY ==
--- NOTE | 2022-12-06 18:10 | CT_ITS ---
STUDY: CT CHEST WITH CONTRAST REASON FOR EXAM: Female, 82 years old. Pt had abnormal chest xray, need CT of chest w/ contrast to follo -- pt had abnormal chest xray, need CT of chest w/ contrast to follo RADIATION DOSAGE (If Supplied By Facility): CTDIvol = ( 21.04 ) mGy, DLP = ( 551.32 ) mGycm TECHNIQUE: Transaxial imaging was performed following intravenous administration of IV 100mL Isovue-300. Multiplanar coronal and sagittal images were reformatted. Individualized dose optimization techniques were used for this CT. COMPARISON: Comparison made with prior CT scan of the chest dated October 07, 2022 and chest radiograph dated November 25, 2022. FINDINGS: CHEST Mild bilateral apical scarring. Minimal scarring is seen in the posterior lateral aspect of the right middle lobe. 3 mm calcified granuloma in the posterior aspect of the right middle lobe. Mild scarring at the lung bases. The previously seen infiltration in the peripheral lateral aspect of the lingular segment of the left upper lobe has cleared. There is no demonstrated pleural abnormality. There are calcifications of the coronary arteries. A left-sided dual-chamber pacemaker is seen. There are multiple small lymph nodes within the mediastinum, which are normal in size and morphology most compatible with reactive lymph hyperplasia. Normal hilar regions. Normal unenhanced pulmonary arteries. There is atherosclerotic calcification of the aortic arch. There are multi-level degenerative changes of the thoracic spine. Status post cholecystectomy. CT/Chest WITH Contrast IMPRESSION: Mild degree of scarring at the lung apices as well as at the lung bases. Electronically Signed: Elmer Sexton MD at 14:01 EDT ,
== END | disposition home or self-care (01) ==
LOC: CT 17:43
PROVIDERS: PCP Internal Medicine; Referring Provider Internal Medicine; Visit Provider Internal Medicine
DX: R93.89 Abnormal findings on diagnostic imaging of other specified body structures (principal)
CPT/HCPCS: 71260; Q9967

== ENCOUNTER 2022-12-31 14:31 | Outpatient (RCR) | payer OTHER, SELFPAY ==
[2022-12-02 08:10] VITALS: BMI 35.1
[2022-12-08 15:49] LABS: INR Fingerstick 1.2; Prothrombin Time Fingerstick 13.4 SEC (11.7-14.9)
[2022-12-16 17:13] LABS: INR Fingerstick 2.1; Prothrombin Time Fingerstick 22.5 SEC (11.7-14.9)
[2022-12-31 15:22] LABS: INR Fingerstick 2.5
== END 2022-12-31 18:00 | disposition home or self-care (01) ==
LOC: MTLAB 14:31
PROVIDERS: Family Provider Internal Medicine; PCP Internal Medicine; Referring Provider Internal Medicine Cardiovascular Disease; Visit Provider Internal Medicine Cardiovascular Disease
DX: I48.0 Paroxysmal atrial fibrillation (principal); Z79.01 Long term (current) use of anticoagulants
CPT/HCPCS: 36416; 85610

== ENCOUNTER 2023-02-28 15:55 | Outpatient (RCR) | payer OTHER, SELFPAY ==
[2023-01-01 02:43] VITALS: BMI 35.1
[2023-02-01 14:59] LABS: INR Fingerstick 1.8; Prothrombin Time Fingerstick 20.3 SEC (11.7-14.9)
[2023-02-14 14:51] LABS: INR Fingerstick 3.2; Prothrombin Time Fingerstick 33.7 SEC (11.7-14.9)
[2023-02-28 16:13] LABS: INR Fingerstick 3.1; Prothrombin Time Fingerstick 32.7 SEC (11.7-14.9)
== END 2023-02-28 18:00 | disposition home or self-care (01) ==
LOC: MTLAB 15:55
PROVIDERS: Family Provider Internal Medicine; PCP Internal Medicine; Referring Provider Internal Medicine Cardiovascular Disease; Visit Provider Internal Medicine Cardiovascular Disease
DX: I48.0 Paroxysmal atrial fibrillation (principal); Z79.01 Long term (current) use of anticoagulants
CPT/HCPCS: 36416; 85610

== ENCOUNTER → 2023-03-17 | Outpatient (CLI) | payer OTHER, SELFPAY ==
--- NOTE | 2023-03-17 14:47 | BI_ITS ---
MAMMOGRAPHY - BILATERAL SCREENING REASON FOR EXAM: Female, 82 years old. Routine annual screening examination. PERTINENT HISTORY: Sister with breast cancer. TECHNIQUE: Digital bilateral breast arcelia (3D mammographic acquisition) in the CC and MLO projections. 2-D mediolateral oblique (MLO) and craniocaudad (CC) views of both breasts were obtained. CAD: Full Field Digital Mammography with Computer Added Detection was performed. COMPARISON: Comparison is made with prior study dated February 15, 2022 and February 04, 2021. FINDINGS: Breast Composition: The breasts are heterogeneously dense, which may obscure small masses. There are no dominant masses or suspicious calcifications. Stable bilateral secretory calcifications. Stable small benign-appearing bilateral axillary lymph nodes. No other significant abnormalities are identified. There has been no significant change since the prior study. BI/SCRN MAMM (CAD)W/ARCELIA BILAT IMPRESSION: Stable bilateral screening mammogram. Yearly follow-up mammogram recommended. (A) ASSESSMENT CATEGORY: BIRADS Category 2: Benign. A letter regarding these results will be sent to the patient by the facility within 30 days. Approximately 10% of breast cancers are not detected by mammography. A normal mammogram should not delay biopsy of a clinically suspicious abnormality. [id number] Electronically Signed: Elmer Sexton MD at 15:53 EDT ,
--- NOTE | 2023-03-17 14:57 | BD_ITS ---
STUDY: DUAL ENERGY X-RAY ABSORPTIOMETRY / DXA REASON FOR EXAM: Female, 82 years old. [id number] TECHNIQUE: Bone Mineral Density (BMD) measurements of lumbar spine and bilateral hips were obtained. COMPARISON: Comparison is made with prior study February 04, 2021. FINDINGS: Lumbar Spine (L1-L4): g/cm2 (1.108) / T-score (0.5) / Z-score (3.3) Findings are suggestive of normal bone density with a low fracture risk. Left Femur Total: g/cm2 (0.842) / T-score (-0.8) / Z-score (1.4) Left Femoral Neck: g/cm2 (0.645) / T-score (-1.8) / Z-score (0.6) Right Femur Total: g/cm2 (0.820) / T-score (-1.0) / Z-score (1.2) Right Femoral Neck: g/cm2 (0.627) / T-score (-2.0) / Z-score (0.4) The T-Scores on the most recent prior examination were: Lumbar Spine (L1-L4): There has been no change of bone density since the previous examination. Left Femur Total: which represents a worsening of 4.1%. Right Femur Total: which represents a worsening of 5.8%. BD/Dexa Bone Density Study IMPRESSION: The patient is considered osteopenic as outlined below according to World Loyd Organization (WHO) criteria with a moderate fracture risk. There has been worsening of bone density since the previous examination. Reference Information: The T-score is the number of standard deviations above or below the standard which is normal for young adults at their peak bone mineral density. The World Health Organization (WHO) interprets the T-scores as follows: Above -1 Normal bone density Between -1 and -2.5 Osteopenia Equal to / or below -2.5 Osteoporosis As a practical clinical guideline, osteopenia may be graded as follows: Mild -1 through -1.5 Moderate -1.6 through -2.0 Severe -2.1 through -2.4 The Z-score is the number of standard deviations above or below age-matched controls. A Z-score of less than -1.5 would be considered abnormal. References: 1. NIH Osteoporosis and Related Bone Diseases www osteo.org 2. International Society for Clinical Densitometry www iscd.org 3. National Osteoporosis Foundation www nof.org Electronically Signed: Elmer Sexton MD at 13:00 EDT ,
== END | disposition home or self-care (01) ==
PROVIDERS: PCP Internal Medicine; Referring Provider Internal Medicine; Visit Provider Internal Medicine
DX: Z12.31 Encounter for screening mammogram for malignant neoplasm of breast (principal); Z80.3 Family history of malignant neoplasm of breast; Z78.0 Asymptomatic menopausal state
CPT/HCPCS: 77063; 77067; 77080

== ENCOUNTER 2023-03-28 10:21 | Outpatient (RCR) | payer OTHER, SELFPAY ==
[2023-03-04 02:05] VITALS: BMI 35.1
[2023-03-28 10:48] LABS: INR Fingerstick 6.4; Prothrombin Time Fingerstick 65.2 SEC (11.7-14.9)
[2023-03-28 12:04] LABS: International Normalized Ratio 3.1; Prothrombin Time (Protime)PT. 32.1 SECONDS (11.7-14.9)
== END 2023-03-28 18:00 | disposition home or self-care (01) ==
LOC: MTLAB 10:21
PROVIDERS: Family Provider Internal Medicine; PCP Internal Medicine; Referring Provider Internal Medicine Cardiovascular Disease; Visit Provider Internal Medicine Cardiovascular Disease
DX: I48.0 Paroxysmal atrial fibrillation (principal); Z79.01 Long term (current) use of anticoagulants
CPT/HCPCS: 36416; 85610

== ENCOUNTER 2023-05-03 15:47 | Outpatient (RCR) | payer OTHER, SELFPAY ==
[2023-04-03 05:03] VITALS: BMI 35.1
[2023-04-15 15:28] LABS: INR Fingerstick 3.2; Prothrombin Time Fingerstick 34.2 SEC (11.7-14.9)
[2023-05-04 13:51] LABS: INR Fingerstick 3.6; Prothrombin Time Fingerstick 38.5 SEC (11.7-14.9)
== END 2023-05-03 18:00 | disposition home or self-care (01) ==
LOC: MTLAB 15:47
PROVIDERS: Family Provider Internal Medicine; PCP Internal Medicine; Referring Provider Internal Medicine Cardiovascular Disease; Visit Provider Internal Medicine Cardiovascular Disease
DX: I48.0 Paroxysmal atrial fibrillation (principal); Z79.01 Long term (current) use of anticoagulants
CPT/HCPCS: 36416; 85610

== ENCOUNTER 2023-05-16 09:57 | Outpatient (RCR) | payer OTHER, SELFPAY ==
[2023-05-03 23:11] VITALS: BMI 35.1
[2023-05-16 14:00] LABS: INR Fingerstick 3.1; Prothrombin Time Fingerstick 32.8 SEC (11.7-14.9)
== END 2023-06-02 18:00 | disposition home or self-care (01) ==
LOC: MTLAB 09:57
PROVIDERS: Family Provider Internal Medicine; PCP Internal Medicine; Referring Provider Internal Medicine Cardiovascular Disease; Visit Provider Internal Medicine Cardiovascular Disease
DX: I48.0 Paroxysmal atrial fibrillation (principal); Z79.01 Long term (current) use of anticoagulants
CPT/HCPCS: 36416; 85610

== ENCOUNTER 2023-06-13 09:14 | Outpatient (RCR) | payer OTHER, SELFPAY ==
[2023-06-03 05:43] VITALS: BMI 35.1
[2023-06-13 09:25] LABS: INR Fingerstick 2.9; Prothrombin Time Fingerstick 30.9 SEC (11.7-14.9)
== END 2023-07-03 18:00 | disposition home or self-care (01) ==
LOC: MTLAB 09:14
PROVIDERS: Family Provider Internal Medicine; PCP Internal Medicine; Referring Provider Internal Medicine Cardiovascular Disease; Visit Provider Internal Medicine Cardiovascular Disease
DX: I48.0 Paroxysmal atrial fibrillation (principal); Z79.01 Long term (current) use of anticoagulants
CPT/HCPCS: 36416; 85610

== ENCOUNTER → 2023-07-07 | Outpatient (CLI) | payer OTHER, SELFPAY ==
--- NOTE | 2023-07-07 10:02 | CDU_ITS ---
Reason For Study: Carotid stenosis Rt. Velocities/BP Lt. Velocities/BP Prox CCA 63.6/10.7 cm/sec. Prox CCA 77.8/9.7 cm/sec. Mid CCA 48.2/9 cm/sec. Mid CCA 66.4/6.9 cm/sec. Dist CCA 58.7/9.9 cm/sec. Dist CCA 65.5/10.7 cm/sec. Prox ICA 57/10.7 cm/sec. Prox ICA 50/10.7 cm/sec. Mid ICA 84.4/17.3 cm/sec. Mid ICA 113.8/20.6 cm/sec. Dist ICA 101.4/20.1 cm/sec. Dist ICA 93.7/18.8 cm/sec. Rt. ICA/CCA = 1.72. Lt. ICA/CCA = 1.71. Prox ECA 56.1/4.6 cm/sec. Prox ECA 48.2/5.5 cm/sec. Rt. Vert. 40.9/6.9 cm/sec. Lt. Vert. 70.7/13.5 cm/sec. Right Extracranial There is intimal thickening but no significant atherosclerotic plaque noted in the right common carotid artery. There is heterogeneous, irregular atherosclerotic plaque noted in the right internal carotid artery. There is heterogeneous, irregular atherosclerotic plaque noted in the right external carotid artery. Antegrade flow is noted in the right vertebral artery. Left Extracranial There is intimal thickening but no significant atherosclerotic plaque noted in the left common carotid artery. There is heterogeneous, irregular atherosclerotic plaque noted in the left internal carotid artery. The left internal carotid artery is very tortuous. There is heterogeneous, irregular atherosclerotic plaque noted in the left external carotid artery. Antegrade flow is noted in the left vertebral artery. Procedure Carotid Duplex [id number]. This is a Carotid Duplex examination using B-mode, color flow and specral Doppler. Exam performed in department. VL/Carotid Duplex Ultrasound Interpretation Summary Mild (<50%) stenosis right extracranial internal carotid. Mild (<50%) stenosis left extracranial internal carotid. Flow within the vertebral arteries is antegrade bilaterally. Ordering Physician: Hailey Baires Referring Physician: Hailey Baires Performed By: Jemima Ly RVT
== END | disposition home or self-care (01) ==
LOC: CVS 10:01
PROVIDERS: PCP Internal Medicine; Referring Provider Internal Medicine; Visit Provider Internal Medicine
DX: I65.23 Occlusion and stenosis of bilateral carotid arteries (principal)
CPT/HCPCS: 93880

== ENCOUNTER 2023-07-25 09:13 | Outpatient (RCR) | payer OTHER, SELFPAY ==
[2023-07-03 23:34] VITALS: BMI 35.1
[2023-07-07 13:12] LABS: INR Fingerstick 1.9; Prothrombin Time Fingerstick 21.1 SEC (11.7-14.9)
[2023-07-25 14:38] LABS: INR Fingerstick 2.8; Prothrombin Time Fingerstick 30.2 SEC (11.7-14.9)
== END 2023-07-25 18:00 | disposition home or self-care (01) ==
LOC: MTLAB 09:13
PROVIDERS: Family Provider Internal Medicine; PCP Internal Medicine; Referring Provider Internal Medicine Cardiovascular Disease; Visit Provider Internal Medicine Cardiovascular Disease
DX: I48.0 Paroxysmal atrial fibrillation (principal); Z79.01 Long term (current) use of anticoagulants
CPT/HCPCS: 36416; 85610

== ENCOUNTER 2023-08-18 10:29 | Outpatient (RCR) | payer OTHER, SELFPAY ==
[2023-08-03 23:45] VITALS: BMI 35.1
[2023-08-18 10:39] LABS: INR Fingerstick 2.9; Prothrombin Time Fingerstick 31.6 SEC (11.7-14.9)
== END 2023-09-01 18:00 | disposition home or self-care (01) ==
LOC: MTLAB 10:29
PROVIDERS: Family Provider Internal Medicine; PCP Internal Medicine; Referring Provider Internal Medicine Cardiovascular Disease; Visit Provider Internal Medicine Cardiovascular Disease
DX: I48.0 Paroxysmal atrial fibrillation (principal); Z79.01 Long term (current) use of anticoagulants
CPT/HCPCS: 36416; 85610

== ENCOUNTER 2023-10-07 13:45 | Outpatient (RCR) | payer OTHER, SELFPAY ==
[2023-09-02 02:21] VITALS: BMI 35.1
[2023-10-07 23:19] LABS: Prothrombin Time Fingerstick 22.2 SEC (11.7-14.9)
== END 2023-11-01 22:06 | disposition home or self-care (01) ==
LOC: MTLAB 13:45
PROVIDERS: Family Provider Internal Medicine; PCP Internal Medicine; Referring Provider Internal Medicine Cardiovascular Disease; Visit Provider Internal Medicine Cardiovascular Disease
DX: I48.0 Paroxysmal atrial fibrillation (principal); Z79.01 Long term (current) use of anticoagulants
CPT/HCPCS: 36416; 85610

== ENCOUNTER 2023-12-21 10:42 | Outpatient (RCR) | payer OTHER, SELFPAY ==
[2023-11-01 22:06] VITALS: BMI 35.1
[2023-12-22 11:36] LABS: INR Fingerstick 2.5; Prothrombin Time Fingerstick 25.9 SEC (11.7-14.9)
== END 2023-12-21 18:00 | disposition home or self-care (01) ==
LOC: MTLAB 10:42
PROVIDERS: Family Provider Internal Medicine; PCP Internal Medicine; Referring Provider Internal Medicine Cardiovascular Disease; Visit Provider Internal Medicine Cardiovascular Disease
DX: I48.0 Paroxysmal atrial fibrillation (principal); Z79.01 Long term (current) use of anticoagulants
CPT/HCPCS: 36416; 85610

== ENCOUNTER 2024-02-23 09:30 | Outpatient (RCR) | payer OTHER, SELFPAY ==
[2024-01-02 04:30] VITALS: BMI 35.1
[2024-02-23 09:37] LABS: INR Fingerstick 2.7; Prothrombin Time Fingerstick 27.6 SEC (11.7-14.9)
== END 2024-02-23 18:00 | disposition home or self-care (01) ==
LOC: MTLAB 09:30
PROVIDERS: Family Provider Internal Medicine; PCP Internal Medicine; Referring Provider Internal Medicine Cardiovascular Disease; Visit Provider Internal Medicine Cardiovascular Disease
DX: I48.0 Paroxysmal atrial fibrillation (principal); Z79.01 Long term (current) use of anticoagulants
CPT/HCPCS: 36416; 85610

== ENCOUNTER 2024-03-29 09:55 | Outpatient (RCR) | payer OTHER, SELFPAY ==
[2024-03-03 21:22] VITALS: BMI 35.1
[2024-03-29 10:03] LABS: INR Fingerstick 3.1; Prothrombin Time Fingerstick 31.2 SEC (11.7-14.9)
== END 2024-03-29 18:00 | disposition home or self-care (01) ==
LOC: MTLAB 09:55
PROVIDERS: Family Provider Internal Medicine; PCP Internal Medicine; Referring Provider Internal Medicine Cardiovascular Disease; Visit Provider Internal Medicine Cardiovascular Disease
DX: I48.0 Paroxysmal atrial fibrillation (principal); Z79.01 Long term (current) use of anticoagulants
CPT/HCPCS: 36416; 85610

== ENCOUNTER → 2024-04-06 | Outpatient (CLI) | payer OTHER, SELFPAY ==
--- NOTE | 2024-04-06 10:11 | BI_ITS ---
MAMMOGRAPHY - BILATERAL SCREENING REASON FOR EXAM: Female, 83 years old. Routine annual screening examination. PERTINENT HISTORY: Sister with breast cancer. TECHNIQUE: Digital bilateral breast arcelia (3D mammographic acquisition) in the CC and MLO projections. 2-D mediolateral oblique (MLO) and craniocaudad (CC) views of both breasts were obtained. CAD: Full Field Digital Mammography with Computer Added Detection was performed. COMPARISON: Comparison is made with prior study March 17, 2023 and February 15, 2022. FINDINGS: Breast Composition: There are scattered areas of fibroglandular density. There are no dominant masses or suspicious calcifications. Stable bilateral secretory calcifications. Once again, a battery pack from a left-sided pacemaker device is seen in the left axilla. Stable fat-containing bilateral axillary lymph nodes. No other significant abnormalities are identified. There has been no significant change since the prior study. BI/SCRN MAMM (CAD)W/ARCELIA BILAT IMPRESSION: Stable bilateral screening mammogram. Yearly follow-up mammogram recommended. (A) ASSESSMENT CATEGORY: BIRADS Category 2: Benign. A letter regarding these results will be sent to the patient by the facility within 30 days. Approximately 10% of breast cancers are not detected by mammography. A normal mammogram should not delay biopsy of a clinically suspicious abnormality. [id number] Electronically Signed: Elmer Sexton MD at 10:56 EDT ,
== END | disposition home or self-care (01) ==
PROVIDERS: PCP Internal Medicine; Referring Provider Internal Medicine; Visit Provider Internal Medicine
DX: Z12.31 Encounter for screening mammogram for malignant neoplasm of breast (principal)
CPT/HCPCS: 77063; 77067

== ENCOUNTER 2024-04-26 09:42 | Outpatient (RCR) | payer OTHER, SELFPAY ==
[2024-04-03 04:52] VITALS: BMI 35.1
[2024-04-26 09:51] LABS: INR Fingerstick 2.4; Prothrombin Time Fingerstick 24.4 SEC (11.7-14.9)
== END 2024-04-26 18:00 | disposition home or self-care (01) ==
LOC: MTLAB 09:42
PROVIDERS: Anesthesiology Pain Medicine; Family Provider Internal Medicine; PCP Internal Medicine; Referring Provider Internal Medicine Cardiovascular Disease; Visit Provider Internal Medicine Cardiovascular Disease
DX: I48.0 Paroxysmal atrial fibrillation (principal); Z79.01 Long term (current) use of anticoagulants
CPT/HCPCS: 36416; 72110; 85610

== ENCOUNTER → 2024-07-19 | Outpatient (CLI) | payer OTHER, SELFPAY ==
--- NOTE | 2024-07-19 12:50 | ECHOD_ITS ---
Reason For Study: AORTIC STENOSIS Procedure This was a 2D Doppler, Color Flow transthoracic echocardiogram. Exam performed in department. Left Ventricle Normal LV size. Left ventricular systolic function is normal. The left ventricular ejection fraction is 60 %. No regional wall motion abnormalities noted. Right Ventricle Normal RV size. ICD or pacer leads identified within the right ventricle. Normal systolic function. Atria Normal left atrium. Normal right atrium. Aortic Valve Trisinus/trileaflet aortic valve. Mild focal aortic valve calcification. Peak aortic valve gradient 40 mmHg. Mean aortic valve gradient 23 mmHg. Moderate aortic stenosis. Pulmonic Valve Normal pulmonic valve. Great Vessels Normal aortic root. The pulmonary artery is normal size. Inferior vena cava collapse with respiration. Pericardium/Pleural No pericardial effusion. MMode/2D Measurements & Calculations LVIDd: 4.3 cm IVSd: 1.3 cm LVOT diam: 1.9 cm LVIDs: 2.7 cm LVPWd: 1.1 cm LVOT area: 2.9 cm2 RVDd: 3.3 cm FS: 36.2 % asc Aorta Diam: 3.2 cm LAV(MOD-bp): 44.6 ml LVAd ap4: 20.3 cm2 LAV(MOD-bp) Indexed: 27.6 ml/m2 LVLd ap4: 7.1 cm LAV(MOD-sp2): 44.1 ml EDV(MOD-sp4): 49.4 ml LAV(MOD-sp4): 43.5 ml EDV(sp4-el): 49.7 ml LVAs ap4: 11.3 cm2 LVLs ap4: 5.9 cm ESV(MOD-sp4): 18.3 ml ESV(sp4-el): 18.5 ml EF(MOD-sp4): 62.9 % EF(sp4-el): 62.8 % SV(MOD-sp4): 31.1 ml SV(MOD-sp2): 36.1 ml LVAd ap2: 22.3 cm2 LVLd ap2: 7.4 cm SI(MOD-sp4): 19.2 ml/m2 SI(MOD-sp2): 22.3 ml/m2 EDV(MOD-sp2): 55.3 ml EDV(sp2-el): 56.7 ml LVAs ap2: 11.7 cm2 LVLs ap2: 6.1 cm ESV(MOD-sp2): 19.2 ml ESV(sp2-el): 19.0 ml EF(MOD-sp2): 65.2 % SV(sp4-el): 31.2 ml Ao sinus diam: 3.[address] Junction: 2.5 cm LA A4 area: 17.9 cm2 LA dimension(2D): 3.3 cm RA A4 area: 13.3 cm2 TAPSE: 1.3 cm Time Measurements MV dec time: 0.21 sec Doppler Measurements & Calculations MV E max ethan: 90.2 cm/sec Lat Peak E' Ethan: 6.0 cm/sec Med Peak E' Ethan: 6.5 cm/sec MV A max ethan: 108.9 cm/sec E/E' lat: 15.0 E/E' med: 13.9 MV E/A: 0.83 Ao V2 max: 313.8 cm/sec LV V1 max: 103.7 cm/sec MV dec slope: 437.4 cm/sec2 Ao max P.5 mmHg LV V1 max P.3 mmHg Ao V2 mean: 226.5 cm/sec LV V1 mean P.5 mmHg Ao mean P.7 mmHg LV V1 mean: 74.8 cm/sec Ao V2 VTI: 70.7 cm LV V1 VTI: 24.2 cm AV (velocity ratio): 0.34 [place](I,D): 0.98 cm2 [place](V,D): 0.94 cm2 SV(LVOT): 69.1 ml PA V2 max: 61.3 cm/sec TR max ethan: 219.8 cm/sec TR max P.3 mmHg ECHO/Echo Complete Interpretation Summary Normal LV size. Left ventricular systolic function is normal. The left ventricular ejection fraction is 60 %. Mild focal aortic valve calcification. Moderate aortic stenosis. Mean aortic valve gradient 23 mmHg. Compared to the previous the aortic valve gradients are mildly worse. Ordering Physician: Elly Trevino Referring Physician: Hailey Baires D.O. Performed By: Susannah Espinoza RDCS
== END | disposition home or self-care (01) ==
LOC: CVS 12:50
PROVIDERS: PCP Internal Medicine; Referring Provider Physician Assistant Medical; Visit Provider Physician Assistant Medical
DX: I35.0 Nonrheumatic aortic (valve) stenosis (principal); R01.1 Cardiac murmur, unspecified
CPT/HCPCS: 93306

== ENCOUNTER 2024-07-23 06:28 | Outpatient (CLI) | payer OTHER, SELFPAY ==
--- NOTE | 2024-07-23 17:01 | STRESSREP ---
Stress Test Report Pharmacologic myocardial perfusion stress test. 84-year-old lady with a history of paroxysmal atrial fibrillation Resting EKG demonstrates atrial paced with a rate of 65 bpm. Resting blood pressure is 122/74 mmHg. 0.4 mg of regadenoson was infused per usual protocol followed by rapid intravenous saline flush injection. Continuous EKG monitoring was performed. The maximum heart rate was 80 bpm which was 58% of max impacted heart rate the maximum workload was 1 metabolic equivalent. At rest there were no ST or T wave changes noted to suggest ischemia and at peak infusion nonspecific ST changes were noted which did not meet the criteria for ischemia. No clinical angina is noted. The final blood pressure was 112/60 mmHg. Myocardial perfusion protocol. 13.4 mCi of technetium 99m sestamibi was injected at rest. 0.4 mg of regadenoson was infused per usual protocol. At peak infusion 40.3 mCi of technetium 99m sestamibi was injected stress images were obtained stress and rest images were reconstructed and compared in the short axis vertical long and horizontal long axis. Gated images were also obtained. Perfusion SPECT analysis: Review of the stress images demonstrate normal uptake of tracer noted in all areas of the myocardium. The resting images similar demonstrated normal uptake of tracer noted in all areas of the myocardium. No areas of reversibility are noted to suggest ischemia and no previous infarct is noted. Gated SPECT analysis: The gated ejection fraction is 73%. Conclusion: Normal pharmacologic myocardial perfusion stress test. Preserved ejection fraction.
== END 2024-07-23 23:59 | disposition home or self-care (01) ==
PROVIDERS: PCP Internal Medicine; Referring Provider Physician Assistant Medical; Visit Provider Physician Assistant Medical
DX: I10 Essential (primary) hypertension (principal); I48.0 Paroxysmal atrial fibrillation; Z95.0 Presence of cardiac pacemaker; Z79.899 Other long term (current) drug therapy
CPT/HCPCS: 78452; 93017; A9500; A4216; J2785

== ENCOUNTER 2024-08-02 09:38 | Outpatient (RCR) | payer OTHER, SELFPAY ==
[2024-05-03 21:12] VITALS: BMI 35.1
[2024-07-12 10:06] LABS: INR Fingerstick 5.1; Prothrombin Time Fingerstick 49.5 SEC (11.7-14.9)
[2024-07-12 11:27] LABS: Prothrombin Time (Protime)PT. 47.8 SECONDS (11.7-14.9)
[2024-07-16 10:52] LABS: INR Fingerstick 1.4; Prothrombin Time Fingerstick 16.2 SEC (11.7-14.9)
[2024-07-24 13:05] LABS: INR Fingerstick 1.4; Prothrombin Time Fingerstick 16.4 SEC (11.7-14.9)
[2024-08-03 07:43] LABS: INR Fingerstick 1.7; Prothrombin Time Fingerstick 19.4 SEC (11.7-14.9)
== END 2024-08-02 18:00 | disposition home or self-care (01) ==
LOC: MTLAB 09:38
PROVIDERS: Family Provider Internal Medicine; PCP Internal Medicine; Referring Provider Internal Medicine Cardiovascular Disease; Visit Provider Internal Medicine Cardiovascular Disease
DX: I48.0 Paroxysmal atrial fibrillation (principal); Z79.01 Long term (current) use of anticoagulants

== ENCOUNTER 2024-08-21 10:03 | Outpatient (RCR) | payer OTHER, SELFPAY ==
[2024-08-04 02:22] VITALS: BMI 35.1
[2024-08-21 10:11] LABS: INR Fingerstick 2.2; Prothrombin Time Fingerstick 23.9 SEC (11.7-14.9)
== END 2024-08-31 18:00 | disposition home or self-care (01) ==
LOC: MTLAB 10:03
PROVIDERS: Family Provider Internal Medicine; PCP Internal Medicine; Referring Provider Internal Medicine Cardiovascular Disease; Visit Provider Internal Medicine Cardiovascular Disease
DX: I48.0 Paroxysmal atrial fibrillation (principal); Z79.01 Long term (current) use of anticoagulants
CPT/HCPCS: 36416; 85610

== ENCOUNTER 2024-09-18 11:09 | Outpatient (RCR) | payer OTHER, SELFPAY ==
[2024-09-01 07:37] VITALS: BMI 35.1
[2024-09-18 11:20] LABS: INR Fingerstick 1.9; Prothrombin Time Fingerstick 21.1 SEC (11.7-14.9)
== END 2024-09-18 18:00 | disposition home or self-care (01) ==
LOC: MTLAB 11:09
PROVIDERS: Family Provider Internal Medicine; PCP Internal Medicine; Referring Provider Internal Medicine Cardiovascular Disease; Visit Provider Internal Medicine Cardiovascular Disease
DX: I48.0 Paroxysmal atrial fibrillation (principal); Z79.01 Long term (current) use of anticoagulants
CPT/HCPCS: 36416; 85610

== ENCOUNTER 2024-10-09 10:52 | Outpatient (RCR) | payer OTHER, SELFPAY ==
[2024-10-01 23:17] VITALS: BMI 35.1
[2024-10-09 11:03] LABS: INR Fingerstick 2.4; Prothrombin Time Fingerstick 25.7 SEC (11.7-14.9)
== END 2024-10-31 18:00 | disposition home or self-care (01) ==
LOC: MTLAB 10:52
PROVIDERS: Family Provider Internal Medicine; PCP Internal Medicine; Referring Provider Internal Medicine Cardiovascular Disease; Visit Provider Internal Medicine Cardiovascular Disease
DX: I48.0 Paroxysmal atrial fibrillation (principal); Z79.01 Long term (current) use of anticoagulants
CPT/HCPCS: 36416; 85610

== ENCOUNTER → 2024-10-09 | Outpatient (CLI) | payer OTHER, SELFPAY ==
--- NOTE | 2024-10-09 09:54 | CDU_ITS ---
Reason For Study Reason For Study: Carotid stenosis Rt. Velocities/BP Lt. Velocities/BP Prox CCA 68.3/8.1 cm/sec. Prox CCA 69.5/13.0 cm/sec. Mid CCA 45.6/8.1 cm/sec. Mid CCA 73.2/8.1 cm/sec. Dist CCA 55.2/9.9 cm/sec. Dist CCA 45.0/8.1 cm/sec. Prox ICA 50.3/8.1 cm/sec. Prox ICA 47.8/10.0 cm/sec. Mid ICA 80.9/17.1 cm/sec. Mid ICA 125.3/26.7 cm/sec. Dist ICA 86.7/24.1 cm/sec. Dist ICA 105.2/21.2 cm/sec. Rt. ICA/CCA = 1.9. Lt. ICA/CCA = 1.7. Prox ECA 52.5/4.3 cm/sec. Prox ECA 54.4/5.3 cm/sec. Rt. Vert. 49.9/4.4 cm/sec. Lt. Vert. 56.0/8.1 cm/sec. Right Extracranial There is homogeneous, smooth atherosclerotic plaque noted in the right common carotid artery. There is heterogeneous, irregular atherosclerotic plaque noted in the right internal carotid artery. The atherosclerotic plaque causes acoustic shadowing. There is heterogeneous, irregular atherosclerotic plaque noted in the right external carotid artery. Antegrade flow is noted in the right vertebral artery. Left Extracranial There is intimal thickening but no significant atherosclerotic plaque noted in the left common carotid artery. There is heterogeneous, irregular atherosclerotic plaque noted in the left internal carotid artery. The left internal carotid artery is very tortuous. There is heterogeneous, irregular atherosclerotic plaque noted in the left external carotid artery. Antegrade flow is noted in the left vertebral artery. Procedure Carotid Duplex [id number]. This is a Carotid Duplex examination using B-mode, color flow and specral Doppler. Exam performed in department. VL/Carotid Duplex Ultrasound Interpretation Summary Mild (<50%) stenosis right extracranial internal carotid. Moderate (50-69%) stenosis left extracranial internal carotid. Patent and antegrade vertebrals bilaterally. Ordering Physician: Hailey Baires Referring Physician: Hailey Baires Performed By: Mitra Thomas RVT
== END | disposition home or self-care (01) ==
LOC: CVS 09:53
PROVIDERS: PCP Internal Medicine; Referring Provider Internal Medicine; Visit Provider Internal Medicine
DX: I65.23 Occlusion and stenosis of bilateral carotid arteries (principal)
CPT/HCPCS: 93880

== ENCOUNTER 2024-12-18 10:41 | Outpatient (RCR) | payer OTHER, SELFPAY ==
[2024-11-01 00:44] VITALS: BMI 35.1
[2024-12-18 10:54] LABS: INR Fingerstick 3.1; Prothrombin Time Fingerstick 31.8 SEC (11.7-14.9)
== END 2024-12-18 18:00 | disposition home or self-care (01) ==
LOC: MTLAB 10:41
PROVIDERS: Family Provider Internal Medicine; PCP Internal Medicine; Referring Provider Internal Medicine Cardiovascular Disease; Visit Provider Internal Medicine Cardiovascular Disease
DX: I48.0 Paroxysmal atrial fibrillation (principal); Z79.01 Long term (current) use of anticoagulants
CPT/HCPCS: 36416; 85610

== ENCOUNTER 2025-01-23 09:50 | Outpatient (RCR) | payer OTHER, SELFPAY ==
[2025-02-05 17:11] LABS: INR Fingerstick 1.8
== END 2025-01-31 18:00 | disposition home or self-care (01) ==
LOC: MTLAB 09:50
PROVIDERS: Family Provider Internal Medicine; PCP Internal Medicine; Referring Provider Internal Medicine Cardiovascular Disease; Visit Provider Internal Medicine Cardiovascular Disease
DX: I48.0 Paroxysmal atrial fibrillation (principal); Z79.01 Long term (current) use of anticoagulants
CPT/HCPCS: 36416; 85610

== ENCOUNTER → 2025-03-14 | Outpatient (CLI) | payer OTHER, SELFPAY ==
--- NOTE | 2025-03-14 11:54 | VDUE_ITS ---
Reason For Study Reason For Study: Effusion of LT hand & LT shoulder. Left Proximal Left jugular vein is spontaneous, widely patent, phasic, with no intraluminal echogenicity noted. Left subclavian vein is spontaneous, widely patent, phasic, with no intraluminal echogenicity noted. Left Arm PT unable to pull LUE away from body for imaging. Unable to access axillary area due to LUE spiral fracture, raw skin due to debridement 03/14/25 & pain. Limited access to forearm veins due to LUE pain. Brachial V is compressible at antecubital. Cephalic V is compressible from wrist to antecubital. Left Lower Arm Left radial vein is compressible. Left ulnar vein is compressible. Patient Safety PT is currently on COUMADIN. VL/Venous Duplex US, Unilateral Interpretation Summary Deep veins of the left upper extremity are patent and compressible segmentally. There is no evidence of deep vein thrombosis. Superficial veins of the left upper extremity are patent and compressible segme ntally. There is no evidence of superficial vein thrombosis. Limited study due to patient position limitations. Ordering Physician: Jeannie Duggan Referring Physician: Hailey Baires Performed By: Sintia Calvin, HENNYCS, RVT ???
== END | disposition home or self-care (01) ==
LOC: CVS 11:50
PROVIDERS: PCP Internal Medicine
DX: M25.442 Effusion, left hand (principal); M25.412 Effusion, left shoulder
CPT/HCPCS: 93971

== ENCOUNTER 2025-04-09 10:19 | Outpatient (RCR) | payer OTHER, SELFPAY ==
[2025-04-09 10:08] LABS: Mucous, Urine 0 SEEN /hpf (<or=2+)
[2025-04-09 12:00] LABS: Hematocrit 33.9 % (37-47); Hemoglobin 11.2 g/dL (12.0-15.0); Immature Granulocytes Count 0.040 X10^3/uL (0.0-0.0); Mean Corp Hgb Conc 33.0 g/dL (32-36); Mean Corpuscular Volume 94.2 fL (81-99); Mean Platelet Vol. 9.9 fl (6.2-12.0); NRBC Flagged by Analyzer 0 % (0-5); Platelet Count 298 K/mm3 (150-450); RBC Distribution Width CV 14.2 % (11.6-14.6); RBC Distribution Width SD 48.7 fl (35.1-43.9); Red Blood Count 3.60 M/mm3 (4.2-5.4); White Blood Count 10.6 K/mm3 (4.4-11.0)
[2025-04-09 12:14] LABS: Color, Urine Yellow (Yellow); Glucose, Dipstick Normal (Normal); Ketone-Dipstick Negative (Negative); Leukocyte Esterase-Dipstick 500 /ul (Negative); Nitrite-Dipstick Negative (Negative); Occult Blood-Urine 10 /ul (Negative); Protein-Dipstick 30 mg/dl (Negative); Specific Gravity, Urine 1.010 (1.002-1.030); Urine Bilirubin Dipstick Negative (Negative)
[2025-04-09 12:15] LABS: Prothrombin Time (Protime)PT. 28.3 SECONDS (11.7-14.9)
[2025-04-09 12:22] LABS: AST(SGOT) 20 U/L (<=31); Alanine Aminotransfer ALT/SGPT 10 U/L (<=34); Albumin, Serum 4.0 g/dL (3.4-4.8); Alkaline Phosphatase 59 U/L (35-104); Anion Gap 12 (5-15); BUN 18 mg/dL (4-19); BUN/Creat Ratio 36.6 RATIO (10-20); Calcium,Total 9.7 mg/dL (7.6-11.0); Carbon Dioxide 23.7 mmol/L (21.0-32.0); Chloride 103 mmol/L (98-108); Globulin 3.0 g/dL (2.2-4.2); Glucose 114 mg/dL (70-99); Potassium 3.9 mmol/L (3.3-5.1)
[2025-04-09 12:26] LABS: Red Blood Cells-Urine 0-5 SEEN /hpf (0-5); Squamous Epithelial Cells - UA 0-5 SEEN /hpf (5-10)
== END 2025-04-09 18:00 | disposition home or self-care (01) ==
LOC: MTLAB 10:19
PROVIDERS: Family Provider Internal Medicine; PCP Internal Medicine; Referring Provider Internal Medicine Cardiovascular Disease; Visit Provider Internal Medicine Cardiovascular Disease
DX: I48.0 Paroxysmal atrial fibrillation (principal); Z79.01 Long term (current) use of anticoagulants
CPT/HCPCS: 36415; 80053; 81001; 85025; 85610

== ENCOUNTER 2025-04-23 10:54 | Outpatient (CLI) | payer OTHER, SELFPAY ==
[2025-04-23 10:59] VITALS: BP 189/75; PULSE 61; RESP 18; TEMP 36.6; O2SAT 97
[2025-04-23] MEDS: 0.9% NaCl IVPB Med Flush (100mL) 15 ML IV (11:51)
[2025-04-23] MEDS: 0.9% NaCl Peripheral Flush Adult IV ×2 (11:52→12:37)
[2025-04-23] MEDS: CEFEPIME IV (11:56)
[2025-04-23] MEDS: NORMAL SALINE 0.9% IV (11:56)
[2025-04-23 12:38] VITALS: BP 175/70; PULSE 62; RESP 18; TEMP 36.6; O2SAT 98
== END 2025-04-23 23:59 | disposition home or self-care (01) ==
LOC: MEDOUTP 10:56
PROVIDERS: PCP Internal Medicine; Visit Provider Internal Medicine
DX: N39.0 Urinary tract infection, site not specified (principal)
CPT/HCPCS: 96365; A4216

== ENCOUNTER 2025-04-24 10:03 | Outpatient (CLI) | payer OTHER, SELFPAY ==
[2025-04-24 10:20] VITALS: BP 142/52; PULSE 60; RESP 16; TEMP 35.8; O2SAT 99; BMI 30.1
[2025-04-24] MEDS: 0.9% NaCl Peripheral Flush Adult IV ×2 (10:26→11:50)
[2025-04-24] MEDS: 0.9% NaCl IVPB Med Flush (100mL) 15 ML IV (10:26)
[2025-04-24] MEDS: NORMAL SALINE 0.9% IV (10:46)
[2025-04-24] MEDS: CEFEPIME IV (10:46)
[2025-04-24 11:49] VITALS: BP 146/51; PULSE 60; RESP 16; TEMP 35.7
== END 2025-04-24 23:59 | disposition home or self-care (01) ==
PROVIDERS: PCP Internal Medicine; Referring Provider Internal Medicine; Visit Provider Internal Medicine
DX: N39.0 Urinary tract infection, site not specified (principal)
CPT/HCPCS: 96365; A4216

== ENCOUNTER 2025-04-25 10:18 | Outpatient (CLI) | payer OTHER, SELFPAY ==
[2025-04-25 10:34] VITALS: BP 130/79; PULSE 62; RESP 16; TEMP 35.8; O2SAT 96
[2025-04-25] MEDS: NORMAL SALINE 0.9% IV (10:53)
[2025-04-25] MEDS: CEFEPIME IV (10:53)
[2025-04-25] MEDS: 0.9% NaCl IVPB Med Flush (100mL) 15 ML IV (10:54)
[2025-04-25] MEDS: 0.9% NaCl Peripheral Flush Adult IV (10:54)
[2025-04-25 11:46] VITALS: BP 152/67; PULSE 60; RESP 16
== END 2025-04-25 23:59 | disposition home or self-care (01) ==
LOC: MEDOUTP 10:19
PROVIDERS: PCP Internal Medicine; Referring Provider Internal Medicine; Visit Provider Internal Medicine
DX: N39.0 Urinary tract infection, site not specified (principal)
CPT/HCPCS: 96365; A4216

== ENCOUNTER → 2025-07-01 | Outpatient (CLI) | payer OTHER, SELFPAY ==
[2025-07-01 15:13] LABS: Hematocrit 33.5 % (37-47); Hemoglobin 10.9 g/dL (12.0-15.0); Immature Granulocytes Count 0.030 X10^3/uL (0.0-0.0); Mean Corp Hgb Conc 32.5 g/dL (32-36); Mean Corpuscular Volume 91.5 fL (81-99); Mean Platelet Vol. 10.5 fl (6.2-12.0); NRBC Flagged by Analyzer 0 % (0-5); Platelet Count 279 K/mm3 (150-450); RBC Distribution Width CV 14.4 % (11.6-14.6); RBC Distribution Width SD 48.8 fl (35.1-43.9); Red Blood Count 3.66 M/mm3 (4.2-5.4); White Blood Count 10.4 K/mm3 (4.4-11.0)
[2025-07-01 15:19] LABS: Creatinine, Urine (random) 87.30 mg/dL (28.00-217.00); Microalbumin,Random Urine 17.5 mg/L (<20 mg/L)
[2025-07-01 15:30] LABS: AST(SGOT) 24 U/L (<=31); Alanine Aminotransfer ALT/SGPT 14 U/L (<=34); Albumin, Serum 4.0 g/dL (3.4-4.8); Alkaline Phosphatase 56 U/L (35-104); Anion Gap 11 (7-18); BUN 32 mg/dL (4-19); BUN/Creat Ratio 49.6 RATIO (10-20); Calcium,Total 9.7 mg/dL (7.6-11.0); Carbon Dioxide 26.7 mmol/L (20.0-29.0); Chloride 103 mmol/L (96-106); Globulin 2.7 g/dL (2.2-4.2); Glucose 119 mg/dL (70-99); Potassium 4.3 mmol/L (3.5-5.1)
== END | disposition home or self-care (01) ==
LOC: LABSPEC 12:36
PROVIDERS: PCP Internal Medicine; Referring Provider Internal Medicine; Visit Provider Internal Medicine
DX: E11.9 Type 2 diabetes mellitus without complications (principal); R82.90 Unspecified abnormal findings in urine
CPT/HCPCS: 80053; 82043; 82570; 85025; 87077; 87086; 87088; 87186